=== PATIENT | male | born 1965 | race Caucasian/White ===

== ENCOUNTER 2017-11-21 09:47 | Inpatient (IN) | payer OTHER ==
[2017-11-21 10:49] VITALS: BMI 32.5
--- NOTE | 2017-11-21 12:42 | HP ---
CIWA Score - CIWA Score Nausea/Vomitin Muscle Tremors: 3 Anxiety: 3 Agitation: 2 Paroxysmal Sweats: 3 Orientation: 0-Oriented Tacttile Disturbances: 1-Very Mild Itch/Numbness Auditory Disturbances: 0-None Visual Disturbances: 0-None Headache: 1-Very Mild CIWA-Ar Total Score: 16 Admission ROS S - [facility] Chief Complaint: 52 y/o m pt with h/o chronic alcoholism seeking detox. Allergies/Adverse Reactions: Allergies Allergy/AdvReac Type Severity Reaction Status Date / Time fish derived Allergy Severe Rash Verified 11/21/17 10:47 shellfish derived Allergy Severe Rash Verified 11/21/17 10:47 chicken derived AdvReac Severe Vomiting Verified 11/21/17 10:47 lactose AdvReac Unknown LACTOSE Verified 11/21/17 10:47 INTOLERANCE seafood Allergy Severe Rash Uncoded 11/21/17 10:47 History of Present Illness: 29 yr h/o chronic alcoholism with multiple detox /rehabs in the past Exam Limitations: No Limitations - Ebola screening Have you traveled outside of the country in the last 21 days: No Have you had contact with anyone from an Ebola affected area: No Have you been sick,other than usual withdrawal symptoms: No Do you have a fever: No - Review of Systems Constitutional: Diaphoresis, Night Sweats EENT: reports: Blurred Vision, Dental Problems (bottom dentures in place , no top dentures), Other (increased blinking) Respiratory: reports: No Symptoms reported Cardiac: reports: No Symptoms Reported GI: reports: Nausea, Indigestion, Abdominal cramping : reports: Frequency Musculoskeletal: reports: Back Pain Integumentary: reports: Rash (groin) Neuro: reports: Dizziness, Other (light headed) Endocrine: reports: Increased Hunger, Increased Thirst, Increased Urine Hematology: reports: No Symptoms Reported Psychiatric: reports: Anxious Other Systems: Reviewed and Negative Patient History - Patient Medical History Hx Anemia: No Hx Asthma: No Hx Chronic Obstructive Pulmonary Disease (COPD): No Hx Cancer: No Hx Cardiac Disorders: No Hx Congestive Heart Failure: No Hx Hypertension: Yes (Pt is on meds.) Hx Hypercholesterolemia: Yes (NOT CURRENTLY ON MEDS--NONCOMPLIANT WITH LOVANZA) Hx Pacemaker: No HX Cerebrovascular Accident: No Hx Seizures: No Hx Dementia: No Hx Diabetes: Yes (metformin 850mg bid ) Hx Gastrointestinal Disorders: No Hx Liver Disease: No Hx Genitourinary Disorders: No Hx Sexually Transmitted Disorders: Yes (Pt has a hx of gonnorhea.) Hx Renal Disease (ESRD): No Hx Thyroid Disease: No Hx Human Immunodeficiency Virus (HIV): No (NEGATIVE HX) Hx Hepatitis C: No Hx Depression: No Hx Suicide Attempt: No Hx Bipolar Disorder: No Hx Schizophrenia: No - Patient Surgical History Past Surgical History: No Hx Neurologic Surgery: No Hx Cataract Extraction: No Hx Cardiac Surgery: No Hx Lung Surgery: No Hx Breast Surgery: No Hx Breast Biopsy: No Hx Abdominal Surgery: No Hx Appendectomy: No Hx Cholecystectomy: No Hx Genitourinary Surgery: No Hx Section: No Hx Orthopedic Surgery: No Hx Hysterectomy: No Anesthesia Reaction: No - PPD History Previous Implant?: Yes Documented Results: Negative w/proof Date: 10/18/17 Results: 0 mm - Reproductive History Patient is a Female of Child Bearing Age (11 -55 yrs old): No - Smoking Cessation Smoking history: Former smoker Have you smoked in the past 12 months: Yes Aproximately how many cigarettes per day: 0 If you are a former smoker, when did you quit?: smokes cannabis occasionally Cigars Per Day: 0 Hx Chewing Tobacco Use: No Initiated information on smoking cessation: Yes 'Breaking Loose' booklet given: 11/21/17 - Substance & Tx. History Hx Alcohol Use: Yes Hx Substance Use: Yes Substance Use Type: Alcohol, Marijuana Hx Substance Use Treatment: Yes - Substances Abused Alcohol Route: Oral Frequency: Daily Amount used: 12 can of beer `16 oz Age of first use: 19 Date of Last Use: 11/21/17 Marijuana/Hashish Route: Smoking Frequency: 1-3 times last 30 days Amount used: 3 bags Age of first use: 19 Date of Last Use: 11/21/17 Family Disease History - Family Disease History Family Disease History: Diabetes: Father, Mother Admission Physical Exam BHS - Vital Signs Vital Signs: Vital Signs - 24 hr 11/21/17 10:23 Pulse Rate 97 H Respiratory 20 Rate Blood Pressure 133/85 52 y/o m pt aox3 in nad ambulating , cooperative with exam. , - Physical General Appearance: Yes: Appropriately Dressed, Obese, Sweating, Anxious HEENTM: Yes: Normocephalic, Normal Voice, JACKLYN, Other (lower dentures in place , upper edentulous) Respiratory: Yes: Chest Non-Tender, Lungs Clear, Normal Breath Sounds, No Respiratory Distress Neck: Yes: No masses,lesions,Nodules, Supple, Trachea in good position Breast: Yes: Within Normal Limits Cardiology: Yes: Regular Rhythm, Regular Rate, S1, S2 Genitourinary: Yes: Frequency, Yeast Infection (jock itch - tinea c.) Back: Yes: Decreased Range of Motion Musculoskeletal: Yes: Back pain, Muscle Pain Extremities: Yes: Within Normal Limits, Normal Range of Motion 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: 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: 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 NML intact, Fully Oriented, Alert, Motor Strength 5/5, Normal Mood/Affect Integumentary: Yes: Moist Lymphatic: Yes: Within Normal Limits - Diagnostic (1) Anxiety disorder Current Visit: No Status: Chronic (2) Alcohol dependence with uncomplicated withdrawal Current Visit: No Status: Chronic (3) Cannabis abuse Current Visit: No Status: Chronic (4) Nicotine dependence Current Visit: No Status: Resolved Qualifiers: Nicotine product type: cigarettes Substance use status: in remission Qualified Code(s): F17.211 - Nicotine dependence, cigarettes, in remission (5) Obesity Current Visit: No Status: Chronic (6) DM Diabetes mellitus type 2 Current Visit: No Status: Chronic (7) Essential hypertension Current Visit: No Status: Chronic (8) Hypercholesterolemia Current Visit: No Status: Suspected Comment: NO MEDS (9) Tinea cruris Current Visit: Yes Status: Acute Cleared for Admission [facility] - Detox or Rehab [facility] Level of Care: Medically Managed Detox Regimen/Protocol: Librium [facility] Breath Alcohol Content Breath Alcohol Content: 0 Urine Drug Screen - Results Drug Screen Negative: No Urine Drug Screen Results: BZO-Benzodiazepines
[2017-11-21] MEDS ORDERED: MAGNESIUM HYDROX 2400MG/30ML ORAL SUSPENSION 30 ML CUP PO PRN (12:57)
[2017-11-21] MEDS ORDERED: chlordiazePOXIDE HCL 25 MG CAPSULE PO PRN (12:57)
[2017-11-21] MEDS ORDERED: hydrOXYzine PAMOATE 25 MG CAPSULE (FP) PO PRN (12:57)
[2017-11-21] MEDS ORDERED: MENTHOL/PHENOL 1 EACH UD MM PRN (12:57)
[2017-11-21] MEDS ORDERED: MAG HYDROX/AL HYDROX/SIMETH 30 ML UNIT-DOSE CUP PO PRN (12:57)
[2017-11-21] MEDS ORDERED: IBUPROFEN 400 MG TABLET (FP) PO PRN (12:57)
[2017-11-21] MEDS ORDERED: guaiFENesin/D-METHORPHAN HB 10 ML UNIT-DOSE CUPS PO PRN (12:57)
[2017-11-21] MEDS ORDERED: LOPERAMIDE HCL 2 MG CAPSULE PO PRN (12:57)
[2017-11-21] MEDS ORDERED: MAGNESIUM CITRATE 300 ML BOTTLE PO PRN (12:57)
[2017-11-21] MEDS ORDERED: P-EPHED 60MG/TRIPROLIDI 2.5MG TABLET PO PRN (12:57)
[2017-11-21] MEDS ORDERED: ACETAMINOPHEN 325 MG TABLET (FP) PO PRN (12:57)
[2017-11-21] MEDS: CYCLOBENZAPRINE HCL 5 MG TABLET PO SCH ×2 (14:59→22:18)
[2017-11-21] MEDS ORDERED: INSULIN (NOVOLOG) ASPART 100 UNITS/ML 10ML VIAL ONE (17:41)
[2017-11-21] MEDS: chlordiazePOXIDE HCL 25 MG CAPSULE PO SCH ×2 (18:09→22:18)
[2017-11-21] MEDS: INSULIN SLIDING SCALE (NOVOLOG) 1 VIAL SQ SCH (18:09)
[2017-11-21] MEDS ORDERED: THIAMINE HCL 100 MG TABLET (FP) PO SCH (22:00)
[2017-11-21 23:28] LABS: URINE APPEARANCE TURBID; URINE BILIRUBIN NEGATIVE (NEGATIVE); URINE BLOOD NEGATIVE (NEGATIVE); URINE COLOR YELLOW; URINE GLUCOSE (UA) 3+ (NEGATIVE); URINE KETONE TRACE (NEGATIVE); URINE LEUK ESTERASE NEGATIVE (NEGATIVE); URINE NITRITE NEGATIVE (NEGATIVE); URINE PROTEIN NEGATIVE (NEGATIVE); URINE UROBILINOGEN NEGATIVE mg/dL (0.2-1.0)
[2017-11-22] MEDS: chlordiazePOXIDE HCL 25 MG CAPSULE PO SCH (05:47)
[2017-11-22] MEDS: CYCLOBENZAPRINE HCL 5 MG TABLET PO SCH (05:47)
[2017-11-22] MEDS: INSULIN SLIDING SCALE (NOVOLOG) 1 VIAL SQ SCH (08:00)
[2017-11-22] MEDS ORDERED: INSULIN (NOVOLOG) ASPART 100 UNITS/ML 10ML VIAL ONE (08:02)
--- NOTE | 2017-11-22 08:55 | CONSULT ---
[facility] Psychiatric Consult - Data Date of interview: 11/22/17 Admission source: [facility] Identifying data: This is 52 years old male with no psychiatric hospitalization history intoxicated with: Alcohol, Cannabis and Nicotine Substance Abuse History: - Smoking Cessation. Smoking history: Former smoker. Have you smoked in the past 12 months: Yes. Aproximately how many cigarettes per day: 0. If you are a former smoker, when did you quit?: smokes cannabis occasionally. Cigars Per Day: 0. Hx Chewing Tobacco Use: No. Initiated information on smoking cessation: Yes. 'Breaking Loose' booklet given: . - Substance & Tx. History. Hx Alcohol Use: Yes. Hx Substance Use: Yes. Substance Use Type: Alcohol, Marijuana. Hx Substance Use Treatment: Yes. - Substances Abused. Alcohol. Route: Oral. Frequency: Daily. Amount used: 12 can of beer `16 oz. Age of first use: 19. Date of Last Use: 11/21/17. Marijuana/Hashish. Route: Smoking. Frequency: 1-3 times last 30 days. Amount used: 3 bags. Age of first use: 19. Date of Last Use: 11/21/17 Medical History: Obesity, DM-2, HRN, Hypercholesterolemia, Psychiatric History: Patient reports history of anxiety, reports taking p[rior to admission: Vistaril 50mg po bid Physical/Sexual Abuse/Trauma History: Denies Additional Comment: Vistaril 50mg po bid Mental Status Exam - Mental Status Exam Alert and Oriented to: Person Cognitive Function: Fair Patient Appearance: Unkempt Mood: Sad Affect: Mood Congruent Patient Behavior: Appropriate Speech Pattern: Appropriate Voice Loudness: Normal Thought Process: Circumstantial Thought Disorder: Being Controlled Hallucinations: Denies Suicidal Ideation: Denies Homicidal Ideation: Denies Insight/Judgement: Fair Sleep: Difficulty falling asleep Appetite: Fair Muscle strength/Tone: Normal Gait/Station: Normal Additional Comments: Vistaril 50mg po bid Psychiatric Findings - Problem List ([place] 1, 2,3) (1) Alcohol dependence with uncomplicated withdrawal Current Visit: Yes Status: Chronic (2) Anxiety disorder Current Visit: Yes Status: Chronic (3) Cannabis abuse Current Visit: Yes Status: Chronic (4) Alcohol-induced anxiety disorder Current Visit: No Status: Acute (5) Substance induced mood disorder Current Visit: No Status: Acute (6) Obesity Current Visit: No Status: Chronic Qualifiers: Obesity type: unspecified obesity type (7) Nicotine dependence Current Visit: No Status: Resolved Qualifiers: Nicotine product type: cigarettes Substance use status: in remission Qualified Code(s): F17.211 - Nicotine dependence, cigarettes, in remission - Initial Treatment Plan Initial Treatment Plan: Vistaril 50mg po bid
[2017-11-22 09:24] VITALS: BP 142/91; PULSE 71; TEMP 97.3
[2017-11-22] MEDS ORDERED: ASPIRIN COATED 81 MG TABLET.EC PO SCH (10:00)
[2017-11-22] MEDS ORDERED: NIFEdipine E.R. 30 MG TABLET (FP) PO SCH (10:00)
[2017-11-22] MEDS ORDERED: PRENATAL VITAMINS W/ FOLIC ACID TABLET (FP) PO SCH (10:00)
[2017-11-22] MEDS ORDERED: hydrOXYzine HCL 25 MG TABLET (FP) PO SCH (10:00)
[2017-11-22 10:48] LABS: HEMOGLOBIN 14.7 GM/dL (11.7-16.9); MCH 29.9 pg (25.7-33.7); MCHC 33.5 g/dl (32.0-35.9); MEAN CELL VOLUME 89.2 fl (80-96); MEAN PLT VOLUME 10.4 fl (7.5-11.1); PLATELET COUNT 221 K/MM3 (134-434); RBC 4.93 M/mm3 (4.00-5.60); RDW 14.3 % (11.9-15.9); WHITE BLOOD COUNT 5.6 K/mm3 (4.0-10.0)
[2017-11-22 10:57] LABS: CHLORIDE 103 mmol/L (98-107); POTASSIUM 4.1 mmol/L (3.5-5.1); SODIUM 140 mmol/L (136-145)
[2017-11-22 11:12] LABS: ALBUMIN 4.2 g/dl (3.4-5.0); ALK PHOS 71 U/L (45-117); ANION GAP 11 (8-16); BILIRUBIN,TOTAL 0.5 mg/dL (0.2-1.0); BLOOD UREA NITROGEN 12 mg/dL (7-18); CALCIUM 9.1 mg/dL (8.5-10.1); CO2 26 mmol/L (21-32); CREATININE 0.8 mg/dL (0.7-1.3); GLUCOSE,RANDOM 251 mg/dL (74-106); SGOT/AST 24 U/L (15-37); SGPT/ALT 35 U/L (12-78); TOT PROT 7.8 g/dl (6.4-8.2)
--- NOTE | 2017-11-22 11:29 | PN ---
[facility] CIWA - CIWA Score Nausea/Vomitin-No Nausea/No Vomiting Muscle Tremors: 3 Anxiety: 3 Agitation: 3 Paroxysmal Sweats: 3 Orientation: 0-Oriented Tacttile Disturbances: 0-None Auditory Disturbances: 0-None Visual Disturbances: 0-None Headache: 1-Very Mild CIWA-Ar Total Score: 13 S Progress Note (SOAP) Subjective: agitation anxiety sweats shakes interrupted sleep Objective: 11/22/17 11:27 Vital Signs Temperature 97.3 F L 11/22/17 09:23 Pulse Rate 71 11/22/17 09:23 Respiratory Rate 20 11/22/17 09:23 Blood Pressure 142/91 11/22/17 09:23 O2 Sat by Pulse Oximetry (%) Laboratory Tests 11/21/17 11/21/17 11/21/17 11:20 15:34 16:37 WBC RBC Hgb Hct MCV MCH MCHC RDW Plt Count MPV Sodium Potassium Chloride Carbon Dioxide Anion Gap BUN Creatinine Creat Clearance w eGFR POC Glucometer 295 200 187 Random Glucose Calcium Total Bilirubin AST ALT Alkaline Phosphatase Total Protein Albumin Urine Color Urine Appearance Urine pH Ur Specific [place] Urine Protein Urine Glucose (UA) Urine Ketones Urine Blood Urine Nitrite Urine Bilirubin Urine Urobilinogen Ur Leukocyte Esterase 11/21/17 11/22/17 11/22/17 20:45 05:45 06:00 WBC 5.6 RBC 4.93 Hgb 14.7 Hct 44.0 MCV 89.2 MCH 29.9 MCHC 33.5 RDW 14.3 Plt Count 221 MPV 10.4 Sodium Potassium Chloride Carbon Dioxide Anion Gap BUN Creatinine Creat Clearance w eGFR POC Glucometer 240 Random Glucose Calcium Total Bilirubin AST ALT Alkaline Phosphatase Total Protein Albumin Urine Color Yellow Urine Appearance Turbid Urine pH 5.0 Ur Specific [place] 1.028 Urine Protein Negative Urine Glucose (UA) 3+ H Urine Ketones Trace H Urine Blood Negative Urine Nitrite Negative Urine Bilirubin Negative Urine Urobilinogen Negative Ur Leukocyte Esterase Negative 11/22/17 06:00 WBC RBC Hgb Hct MCV MCH MCHC RDW Plt Count MPV Sodium 140 Potassium 4.1 Chloride 103 Carbon Dioxide 26 Anion Gap 11 BUN 12 Creatinine 0.8 Creat Clearance w eGFR > 60 POC Glucometer Random Glucose 251 H Calcium 9.1 Total Bilirubin 0.5 D AST 24 D ALT 35 Alkaline Phosphatase 71 Total Protein 7.8 Albumin 4.2 Urine Color Urine Appearance Urine pH Ur Specific [place] Urine Protein Urine Glucose (UA) Urine Ketones Urine Blood Urine Nitrite Urine Bilirubin Urine Urobilinogen Ur Leukocyte Esterase aaox3 ambulating no acute distress Assessment: 11/22/17 11:27 withdrawal sx Plan: continue detox increase fluids
--- NOTE | 2017-11-22 12:09 | PN ---
[facility] Progress Note Note: pt came to the nursing station stating that he had a court date this afternoon and need to leave. pt also states he is unhappy with his meals offered. asked pt if we can assist with dietary consultation however, pt continued to insist that he wanted to leave and signed out AMA.
--- NOTE | 2017-11-22 12:10 | DS ---
[facility] Detox Discharge Summary Admission Date: 11/21/17 Discharge Date: 11/22/17 - History Present History: Alcohol Dependence - Physical Exam Results Vital Signs: Vital Signs Temperature 97.3 F L 11/22/17 09:23 Pulse Rate 71 11/22/17 09:23 Respiratory Rate 20 11/22/17 09:23 Blood Pressure 142/91 11/22/17 09:23 O2 Sat by Pulse Oximetry (%) - Treatment Hospital Course: Detox Protocol Followed, Detoxed Safely, Responded well, Discharged Condition Good, Rehab Referral Accepted - Medication Discharge Medications: Ambulatory Orders Metformin HCl [Glucophage -] 850 mg PO BID 10/16/17 Nifedipine ER [Procardia Xl -] 30 mg PO DAILY 10/16/17 Baclofen 10 mg PO TID 11/21/17 Hydroxyzine HCl 50 mg PO PRN 11/21/17 Ibuprofen [Motrin -] 600 mg PO QID PRN 11/21/17 Hydroxyzine Pamoate [Vistaril -] 50 mg PO BID #60 capsule 11/22/17 - Diagnosis (1) Tinea cruris Current Visit: Yes Status: Acute (2) Alcohol dependence with uncomplicated withdrawal Current Visit: Yes Status: Chronic (3) Anxiety disorder Current Visit: Yes Status: Chronic (4) Cannabis abuse Current Visit: Yes Status: Chronic (5) DM Diabetes mellitus type 2 Current Visit: Yes Status: Chronic (6) Essential hypertension Current Visit: Yes Status: Chronic (7) Hypercholesterolemia Current Visit: Yes Status: Suspected (8) Alcohol-induced anxiety disorder Current Visit: No Status: Acute (9) Blackout Current Visit: No Status: Acute (10) Substance induced mood disorder Current Visit: No Status: Acute (11) Depression with anxiety Current Visit: No Status: Chronic (12) Obesity Current Visit: No Status: Chronic Qualifiers: Obesity type: unspecified obesity type (13) Nicotine dependence Current Visit: No Status: Resolved Qualifiers: Nicotine product type: cigarettes Substance use status: in remission Qualified Code(s): F17.211 - Nicotine dependence, cigarettes, in remission - AMA Did Patient Leave Against Medical Advice: Yes
--- NOTE | 2017-11-22 12:38 | EKG ---
Test Reason : Blood Pressure : / mmHG Vent. Rate : 078 BPM Atrial Rate : 078 BPM P-R Int : 142 ms QRS Dur : 084 ms QT Int : 360 ms P-R-T Axes : 060 -09 -07 degrees QTc Int : 410 ms NORMAL SINUS RHYTHM NORMAL ECG WHEN COMPARED WITH ECG OF 16-OCT-2017 14:44, NO SIGNIFICANT CHANGE WAS FOUND Confirmed by ERIC LAND MD ([id number]) on 11/22/2017 12:37:51 PM Referred By: Confirmed By:ERIC LAND MD
[2017-11-22] MEDS ORDERED: chlordiazePOXIDE HCL 25 MG CAPSULE PO SCH (17:00)
[2017-11-23] MEDS ORDERED: chlordiazePOXIDE 5 MG CAPSULE PO SCH (17:00)
[2017-11-24] MEDS ORDERED: chlordiazePOXIDE HCL 10 MG CAPSULE PO SCH (17:00)
== END 2017-11-22 11:48 | disposition home or self-care (01) | DRG 897 ==
LOC: YASAS 09:47 → Y6N 13:14
PROVIDERS: ADMIT Internal Medicine; ATTEND Internal Medicine
PROC: HZ2ZZZZ Detoxification Services for Substance Abuse Treatment (ICD-10-PCS; principal; 2017-11-21)
DX: F10.230 Alcohol dependence with withdrawal, uncomplicated (principal); F10.280 Alcohol dependence with alcohol-induced anxiety disorder; F12.10 Cannabis abuse, uncomplicated; F41.8 Other specified anxiety disorders; F41.9 Anxiety disorder, unspecified; F19.24 Other psychoactive substance dependence with psychoactive substance-induced mood disorder; I10 Essential (primary) hypertension; E11.9 Type 2 diabetes mellitus without complications; E78.00 Pure hypercholesterolemia, unspecified; B35.6 Tinea cruris; E66.9 Obesity, unspecified; Z68.32 Body mass index [BMI] 32.0-32.9, adult; Z91.14 Patient's other noncompliance with medication regimen; Z79.84 Long term (current) use of oral hypoglycemic drugs; Z86.69 Personal history of other diseases of the nervous system and sense organs; Z91.013 Allergy to seafood; Z87.438 Personal history of other diseases of male genital organs; Z87.891 Personal history of nicotine dependence
CPT/HCPCS: 36415; 80053; 81003; 82962; 85027; 86593; 93005; 93010

== ENCOUNTER 2017-12-21 11:09 | Inpatient (IN) | payer MEDICARE, OTHER ==
[2017-12-21 12:51] VITALS: BMI 33.2
--- NOTE | 2017-12-21 14:19 | HP ---
CIWA Score - CIWA Score Nausea/Vomitin-Mild Nausea/No Vomiting Muscle Tremors: 4-Moderate,w/Arms Extend Anxiety: 4-Mod. Anxious/Guarded Agitation: 4-Moderately Restless Paroxysmal Sweats: 3 Orientation: 0-Oriented Tacttile Disturbances: 0-None Auditory Disturbances: 0-None Visual Disturbances: 0-None Headache: 0-None Present CIWA-Ar Total Score: 16 Admission ROS BHS - HPI Chief Complaint: I am here for detox and will do my best to complete my detox. Allergies/Adverse Reactions: Allergies Allergy/AdvReac Type Severity Reaction Status Date / Time lactose AdvReac Severe Vomiting Verified 12/21/17 13:44 seafood Allergy Severe Rash Uncoded 12/21/17 13:44 WHITE MEAT AdvReac Severe Vomiting Uncoded 12/21/17 13:44 History of Present Illness: pt is a 52yr old male with a history of alcohol dependence seeking detox for treatment. Exam Limitations: No Limitations - Ebola screening Have you traveled outside of the country in the last 21 days: No Have you had contact with anyone from an Ebola affected area: No Have you been sick,other than usual withdrawal symptoms: No Do you have a fever: No - Review of Systems Constitutional: Chills, Night Sweats, Changes in sleep EENT: reports: Tearing, Nose Congestion Respiratory: reports: Cough Cardiac: reports: No Symptoms Reported GI: reports: Nausea, Poor Fluid Intake, Vomiting : reports: No Symptoms Reported Musculoskeletal: reports: Back Pain Integumentary: reports: Flushing, Rash (around inner groin area d/t sweat), Sweating Neuro: reports: Tingling, Tremors Endocrine: reports: Excessive Sweating, Flushing, Intolerance to Cold, Intolerance to Heat Hematology: reports: No Symptoms Reported Psychiatric: reports: Judgement Intact, Mood/Affect Appropiate, Orientated x3, Agitated, Anxious Other Systems: Reviewed and Negative Patient History - Patient Medical History Hx Anemia: No Hx Asthma: No Hx Chronic Obstructive Pulmonary Disease (COPD): No Hx Cancer: No Hx Cardiac Disorders: No Hx Congestive Heart Failure: No Hx Hypertension: Yes Hx Hypercholesterolemia: Yes (NOT CURRENTLY ON MEDS--NONCOMPLIANT WITH LOVANZA) Hx Pacemaker: No HX Cerebrovascular Accident: No Hx Seizures: No Hx Dementia: No Hx Diabetes: Yes (NIDDM) Hx Gastrointestinal Disorders: No Hx Liver Disease: No Hx Genitourinary Disorders: No Hx Sexually Transmitted Disorders: Yes (syphilis at age 22) Hx Renal Disease (ESRD): No Hx Thyroid Disease: No Hx Human Immunodeficiency Virus (HIV): No (NEGATIVE HX) Hx Hepatitis C: No Hx Depression: No Hx Suicide Attempt: No (denies) Hx Bipolar Disorder: No Hx Schizophrenia: No - Patient Surgical History Past Surgical History: No Hx Neurologic Surgery: No Hx Cataract Extraction: No Hx Cardiac Surgery: No Hx Lung Surgery: No Hx Breast Surgery: No Hx Breast Biopsy: No Hx Abdominal Surgery: No Hx Appendectomy: No Hx Cholecystectomy: No Hx Genitourinary Surgery: No Hx Section: No Hx Orthopedic Surgery: No Hx Hysterectomy: No Anesthesia Reaction: No - PPD History Previous Implant?: Yes Documented Results: Negative w/proof Implanted On Prior [facility] Admission?: Yes Date: 10/18/17 Results: 0 mm PPD to be Administered?: No - Reproductive History Patient is a Female of Child Bearing Age (11 -55 yrs old): No - Smoking Cessation Smoking history: Former smoker Have you smoked in the past 12 months: Yes Aproximately how many cigarettes per day: 3 If you are a former smoker, when did you quit?: 6 mos. ago Cigars Per Day: 0 Hx Chewing Tobacco Use: No Initiated information on smoking cessation: Yes 'Breaking Loose' booklet given: 12/21/17 - Substance & Tx. History Hx Alcohol Use: Yes Hx Substance Use: No Substance Use Type: Alcohol Hx Substance Use Treatment: Yes (last detox [facility] 2015) - Substances Abused Alcohol-beer Route: Oral Frequency: Daily Amount used: 2-6 pks. Age of first use: 19 Date of Last Use: 12/21/17 Marijuana Route: Smoking Frequency: 1-3 times last 30 days Amount used: $50 Age of first use: 19 Date of Last Use: 12/21/17 Family Disease History - Family Disease History Family Disease History: Diabetes: Father, Mother Admission Physical Exam BHS - Vital Signs Vital Signs: Vital Signs - 24 hr 12/21/17 12:49 Temperature 98 F Pulse Rate 102 H Respiratory 20 Rate Blood Pressure 136/86 - Physical General Appearance: Yes: Appropriately Dressed, Moderate Distress, Tremorous, Irritable, Sweating, Anxious HEENTM: Yes: Normal Voice, Nasal Congestion, Rhinorrhea Respiratory: Yes: Lungs Clear, Normal Breath Sounds, No Respiratory Distress Neck: Yes: Within Normal Limits Breast: Yes: Within Normal Limits Cardiology: Yes: Regular Rhythm, Regular Rate, S1, S2 Abdominal: Yes: Normal Bowel Sounds, Non Tender, Soft Genitourinary: Yes: Within Normal Limits Back: Yes: Normal Inspection Musculoskeletal: Yes: full range of Motion Extremities: Yes: Normal Capillary Refill, Normal Inspection, Non-Tender, Tremors 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: Yes: Fully Oriented, Alert, Normal Response Integumentary: Yes: Normal Color, Diaphoresis Lymphatic: Yes: Within Normal Limits - Diagnostic (1) Substance induced mood disorder Current Visit: Yes Status: Acute (2) Alcohol dependence with uncomplicated withdrawal Current Visit: Yes Status: Chronic (3) Cannabis abuse Current Visit: Yes Status: Chronic (4) DM Diabetes mellitus type 2 Current Visit: Yes Status: Chronic (5) Essential hypertension Current Visit: Yes Status: Chronic (6) Obesity Current Visit: Yes Status: Chronic Qualifiers: Obesity classification: adult class 1 (BMI 30 - 34.9) (7) Hypercholesterolemia Current Visit: Yes Status: Chronic Comment: NO MEDS (8) Nicotine dependence Current Visit: No Status: Resolved Qualifiers: Nicotine product type: cigarettes Substance use status: uncomplicated Qualified Code(s): F17.210 - Nicotine dependence, cigarettes, uncomplicated Cleared for Admission S - Detox or Rehab [facility] Level of Care: Medically Managed Detox Regimen/Protocol: Librium [facility] Breath Alcohol Content Breath Alcohol Content: 0 Urine Drug Screen - Results Drug Screen Negative: No Urine Drug Screen Results: THC-Marijuana
[2017-12-21] MEDS ORDERED: IBUPROFEN 400 MG TABLET (FP) PO PRN (14:27)
[2017-12-21] MEDS ORDERED: P-EPHED 60MG/TRIPROLIDI 2.5MG TABLET PO PRN (14:27)
[2017-12-21] MEDS ORDERED: MENTHOL/PHENOL 1 EACH UD MM PRN (14:27)
[2017-12-21] MEDS ORDERED: MAGNESIUM HYDROX 2400MG/30ML ORAL SUSPENSION 30 ML CUP PO PRN (14:27)
[2017-12-21] MEDS ORDERED: hydrOXYzine PAMOATE 50 MG CAPSULE (FP) PO PRN (14:27)
[2017-12-21] MEDS ORDERED: chlordiazePOXIDE HCL 25 MG CAPSULE PO PRN (14:27)
[2017-12-21] MEDS ORDERED: LOPERAMIDE HCL 2 MG CAPSULE PO PRN (14:27)
[2017-12-21] MEDS ORDERED: MAGNESIUM CITRATE 300 ML BOTTLE PO PRN (14:27)
[2017-12-21] MEDS ORDERED: ACETAMINOPHEN 325 MG TABLET (FP) PO PRN (14:27)
[2017-12-21] MEDS ORDERED: guaiFENesin/D-METHORPHAN HB 10 ML UNIT-DOSE CUPS PO PRN (14:27)
[2017-12-21] MEDS ORDERED: MAG HYDROX/AL HYDROX/SIMETH 30 ML UNIT-DOSE CUP PO PRN (14:27)
[2017-12-21] MEDS ORDERED: chlordiazePOXIDE HCL 25 MG CAPSULE PO ONE (14:55)
[2017-12-21 16:51] LABS: URINE APPEARANCE CLEAR; URINE BILIRUBIN NEGATIVE (NEGATIVE); URINE BLOOD NEGATIVE (NEGATIVE); URINE COLOR COLORLESS; URINE GLUCOSE (UA) 3+ (NEGATIVE); URINE KETONE TRACE (NEGATIVE); URINE LEUK ESTERASE NEGATIVE (NEGATIVE); URINE NITRITE NEGATIVE (NEGATIVE); URINE PROTEIN NEGATIVE (NEGATIVE); URINE UROBILINOGEN NEGATIVE mg/dL (0.2-1.0)
[2017-12-21] MEDS ORDERED: INSULIN (NOVOLOG) ASPART 100 UNITS/ML 10ML VIAL ONE (16:55)
[2017-12-21] MEDS: chlordiazePOXIDE HCL 25 MG CAPSULE PO SCH ×2 (17:07→22:12)
[2017-12-21] MEDS: INSULIN (NOVOLOG) ASPART 100 UNITS/ML 10ML VIAL SQ SCH (17:07)
--- NOTE | 2017-12-21 17:11 | CONSULT ---
[facility] Psychiatric Consult - Data Date of interview: 12/21/17 Admission source: [facility] Identifying data: This is another admission to [facility] for this 52 y/o male seeking detox treatment on for alcohol and marihuana dependence.Patient is without children,domiciled ([place] setting), unemployed and supported on SSI/SSD benefits. Substance Abuse History: Reconfirmed by patient in this interview.Smoking history: Former smoker. Have you smoked in the past 12 months: Yes. Aproximately how many cigarettes per day: 3. If you are a former smoker, when did you quit?: 6 mos. ago. Cigars Per Day: 0. Hx Chewing Tobacco Use: No. Initiated information on smoking cessation: Yes. 'Breaking Loose' booklet given : 12/21/17. - Substance & Tx. History. Hx Alcohol Use: Yes. Hx Substance Use : No. Substance Use Type: Alcohol. Hx Substance Use Treatment: Yes (last detox [facility] 2016). - Substances Abused. Alcohol-beer. Route: Oral. Frequency: Daily. Amount used: 2-6 pks. Age of first use: 19. Date of Last Use: 12/21/17. Marijuana. Route: Smoking. Frequency: 1-3 times last 30 days. Amount used: $50. Age of first use: 19. Date of Last Use: 12/21/17 Medical History: Obesity,hypertension,dyslipidemia,diabetes mellitus and past history of treatment for gonorrhea. Psychiatric History: Patient denies history of psychiatric hospitalizations.No longer in OPD care at the [facility] mental health clinic.Scheduled for an intake interview at the [facility] O[facility] clinic on 01/22/18.Mr Key reports treatment with prn vistaril for moderate anxiety (primary care providers ).Patient denies history of suicide attempts. Physical/Sexual Abuse/Trauma History: Patient denies. Additional Comment: Urine Drug Screen Results: THC-Marijuana.Noted. Mental Status Exam - Mental Status Exam Alert and Oriented to: Time, Place, Person Cognitive Function: Good Patient Appearance: Well Groomed Mood: Hopeful, Euthymic Affect: Appropriate, Normal Range Patient Behavior: Fatigued, Appropriate, Cooperative Speech Pattern: Clear, Appropriate Voice Loudness: Normal Thought Process: Intact, Goal Oriented Thought Disorder: Not Present Hallucinations: Denies Suicidal Ideation: Denies Homicidal Ideation: Denies Insight/Judgement: Poor Sleep: Well Appetite: Good Muscle strength/Tone: Normal Gait/Station: Normal Psychiatric Findings - Problem List ([place] 1, 2,3) (1) Alcohol dependence with uncomplicated withdrawal Current Visit: Yes Status: Acute (2) Cannabis abuse Current Visit: Yes Status: Acute (3) Nicotine dependence Current Visit: Yes Status: Acute Qualifiers: Nicotine product type: cigarettes Substance use status: uncomplicated Qualified Code(s): F17.210 - Nicotine dependence, cigarettes, uncomplicated (4) Substance induced mood disorder Current Visit: Yes Status: Acute - Initial Treatment Plan Initial Treatment Plan: Psychoeducation.Detoxification in progress.Observation.
[2017-12-21] MEDS: metFORMIN HCL 500 MG TABLET (FP) PO SCH (18:26)
[2017-12-21] MEDS: THIAMINE HCL 100 MG TABLET (FP) PO SCH (22:12)
[2017-12-22] MEDS: chlordiazePOXIDE HCL 25 MG CAPSULE PO SCH ×4 (05:31→22:32)
[2017-12-22] MEDS ORDERED: INSULIN (NOVOLOG) ASPART 100 UNITS/ML 10ML VIAL ONE ×3 (06:13→16:57)
[2017-12-22] MEDS: metFORMIN HCL 500 MG TABLET (FP) PO SCH (07:31)
[2017-12-22] MEDS: INSULIN (NOVOLOG) ASPART 100 UNITS/ML 10ML VIAL SQ SCH ×3 (07:34→17:07)
[2017-12-22] MEDS: NIFEdipine E.R. 30 MG TABLET (FP) PO SCH (10:43)
[2017-12-22] MEDS: PRENATAL VITAMINS W/ FOLIC ACID TABLET (FP) PO SCH (10:43)
--- NOTE | 2017-12-22 12:20 | EKG ---
Test Reason : Blood Pressure : / mmHG Vent. Rate : 079 BPM Atrial Rate : 079 BPM P-R Int : 142 ms QRS Dur : 086 ms QT Int : 360 ms P-R-T Axes : 070 -08 -12 degrees QTc Int : 412 ms NORMAL SINUS RHYTHM NORMAL ECG WHEN COMPARED WITH ECG OF 21-NOV-2017 15:14, NO SIGNIFICANT CHANGE WAS FOUND Confirmed by ERIC LAND MD ([id number]) on 12/22/2017 12:20:28 PM Referred By: Confirmed By:ERIC LAND MD
[2017-12-22 12:28] LABS: HEMATOCRIT 42.5 % (35.4-49); HEMOGLOBIN 14.1 GM/dL (11.7-16.9); MCH 29.5 pg (25.7-33.7); MCHC 33.2 g/dl (32.0-35.9); MEAN CELL VOLUME 88.8 fl (80-96); MEAN PLT VOLUME 9.7 fl (7.5-11.1); PLATELET COUNT 215 K/MM3 (134-434); RBC 4.79 M/mm3 (4.00-5.60); RDW 13.5 % (11.9-15.9); WHITE BLOOD COUNT 6.8 K/mm3 (4.0-10.0)
[2017-12-22 12:49] LABS: ANION GAP 7 (8-16); BLOOD UREA NITROGEN 12 mg/dL (7-18); CALCIUM 8.5 mg/dL (8.5-10.1); CHLORIDE 102 mmol/L (98-107); CO2 28 mmol/L (21-32); POTASSIUM 4.3 mmol/L (3.5-5.1); SODIUM 137 mmol/L (136-145)
[2017-12-22 12:52] LABS: ALK PHOS 88 U/L (45-117); BILIRUBIN,TOTAL 0.5 mg/dL (0.2-1.0); CREATININE 1.1 mg/dL (0.7-1.3); SGOT/AST 9 U/L (15-37); SGPT/ALT 21 U/L (12-78); TOT PROT 7.3 g/dl (6.4-8.2)
[2017-12-22 13:07] LABS: GLUCOSE,RANDOM 389 mg/dL (74-106)
[2017-12-22] MEDS: CLOTRIMAZOLE 1% CREAM 15 GM TUBE TP SCH ×2 (15:32→22:33)
--- NOTE | 2017-12-22 17:18 | PN ---
[facility] CIWA - CIWA Score Nausea/Vomitin-No Nausea/No Vomiting Muscle Tremors: 3 Anxiety: 4-Mod. Anxious/Guarded Agitation: 3 Paroxysmal Sweats: 3 Orientation: 0-Oriented Tacttile Disturbances: 3-Moderate Itch/Numb/Burn Auditory Disturbances: 0-None Visual Disturbances: 0-None Headache: 0-None Present CIWA-Ar Total Score: 16 BHS Progress Note (SOAP) Subjective: Sweating, Tremors, Anxious, Interrupted Sleep. Objective: PT. A & O X 3, OBSERVED AMBULATING ON UNIT. NO ACUTE DISTRESS. 12/22/17 17:19 Vital Signs Temperature 97.8 F 12/22/17 14:16 Pulse Rate 86 12/22/17 14:16 Respiratory Rate 18 12/22/17 14:16 Blood Pressure 121/85 12/22/17 14:16 O2 Sat by Pulse Oximetry (%) Laboratory Tests 12/21/17 12/21/17 12/21/17 14:01 15:00 16:31 WBC RBC Hgb Hct MCV MCH MCHC RDW Plt Count MPV Sodium Potassium Chloride Carbon Dioxide Anion Gap BUN Creatinine Creat Clearance w eGFR POC Glucometer 382 344 Random Glucose Calcium Total Bilirubin AST ALT Alkaline Phosphatase Total Protein Albumin Urine Color Colorless Urine Appearance Clear Urine pH 6.0 Ur Specific [place] 1.024 Urine Protein Negative Urine Glucose (UA) 3+ H Urine Ketones Trace H Urine Blood Negative Urine Nitrite Negative Urine Bilirubin Negative Urine Urobilinogen Negative Ur Leukocyte Esterase Negative RPR Titer 12/22/17 12/22/17 12/22/17 05:30 06:00 06:00 WBC 6.8 RBC 4.79 Hgb 14.1 Hct 42.5 MCV 88.8 MCH 29.5 MCHC 33.2 RDW 13.5 Plt Count 215 MPV 9.7 Sodium 137 Potassium 4.3 Chloride 102 Carbon Dioxide 28 Anion Gap 7 L BUN 12 Creatinine 1.1 D Creat Clearance w eGFR > 60 POC Glucometer 300 Random Glucose 389 H* D Calcium 8.5 Total Bilirubin 0.5 AST 9 L D ALT 21 D Alkaline Phosphatase 88 D Total Protein 7.3 Albumin 4.0 Urine Color Urine Appearance Urine pH Ur Specific [place] Urine Protein Urine Glucose (UA) Urine Ketones Urine Blood Urine Nitrite Urine Bilirubin Urine Urobilinogen Ur Leukocyte Esterase RPR Titer 12/22/17 12/22/17 12/22/17 06:00 14:01 16:06 WBC RBC Hgb Hct MCV MCH MCHC RDW Plt Count MPV Sodium Potassium Chloride Carbon Dioxide Anion Gap BUN Creatinine Creat Clearance w eGFR POC Glucometer 285 308 Random Glucose Calcium Total Bilirubin AST ALT Alkaline Phosphatase Total Protein Albumin Urine Color Urine Appearance Urine pH Ur Specific [place] Urine Protein Urine Glucose (UA) Urine Ketones Urine Blood Urine Nitrite Urine Bilirubin Urine Urobilinogen Ur Leukocyte Esterase RPR Titer Nonreactive LABS NOTED. Assessment: 12/22/17 17:19 WITHDRAWAL SYMPTOMS. Plan: CONTINUE DETOX. INCREASE DAILY PO FLUID INTAKE.
[2017-12-22] MEDS: THIAMINE HCL 100 MG TABLET (FP) PO SCH (22:32)
[2017-12-23] MEDS: chlordiazePOXIDE HCL 25 MG CAPSULE PO SCH ×2 (05:55→10:21)
[2017-12-23] MEDS: INSULIN (NOVOLOG) ASPART 100 UNITS/ML 10ML VIAL SQ SCH ×3 (07:43→16:53)
[2017-12-23] MEDS ORDERED: INSULIN (NOVOLOG) ASPART 100 UNITS/ML 10ML VIAL ONE ×3 (07:45→16:46)
[2017-12-23] MEDS: PRENATAL VITAMINS W/ FOLIC ACID TABLET (FP) PO SCH (10:21)
[2017-12-23] MEDS: NIFEdipine E.R. 30 MG TABLET (FP) PO SCH (10:21)
[2017-12-23] MEDS: CLOTRIMAZOLE 1% CREAM 15 GM TUBE TP SCH ×2 (10:22→23:06)
--- NOTE | 2017-12-23 13:53 | PN ---
S CIWA - CIWA Score Nausea/Vomitin Muscle Tremors: 3 Anxiety: 3 Agitation: 2 Paroxysmal Sweats: 2 Orientation: 0-Oriented Tacttile Disturbances: 1-Very Mild Itch/Numbness Auditory Disturbances: 1-Very Mild Visual Disturbances: 0-None Headache: 2-Mild CIWA-Ar Total Score: 17 S Progress Note (SOAP) Subjective: ALERT,IRRITABLE,ANXIOUS,INTERRUPTED SLEEP,TREMOR,PAIN IN THE BODY Objective: 12/23/17 13:50 Vital Signs Temperature 97.0 F L 12/23/17 13:25 Pulse Rate 87 12/23/17 13:25 Respiratory Rate 18 12/23/17 13:25 Blood Pressure 139/87 12/23/17 13:25 O2 Sat by Pulse Oximetry (%) EKG NSR,NORMAL ECG Laboratory Last Values WBC 6.8 K/mm3 (4.0-10.0) 12/22/17 06:00 RBC 4.79 M/mm3 (4.00-5.60) 12/22/17 06:00 Hgb 14.1 GM/dL (11.7-16.9) 12/22/17 06:00 Hct 42.5 % (35.4-49) 12/22/17 06:00 MCV 88.8 fl (80-96) 12/22/17 06:00 MCH 29.5 pg (25.7-33.7) 12/22/17 06:00 MCHC 33.2 g/dl (32.0-35.9) 12/22/17 06:00 RDW 13.5 % (11.9-15.9) 12/22/17 06:00 Plt Count 215 K/MM3 (134-434) 12/22/17 06:00 MPV 9.7 fl (7.5-11.1) 12/22/17 06:00 Sodium 137 mmol/L (136-145) 12/22/17 06:00 Potassium 4.3 mmol/L (3.5-5.1) 12/22/17 06:00 Chloride 102 mmol/L (98-107) 12/22/17 06:00 Carbon Dioxide 28 mmol/L (21-32) 12/22/17 06:00 Anion Gap 7 (8-16) L 12/22/17 06:00 BUN 12 mg/dL (7-18) 12/22/17 06:00 Creatinine 1.1 mg/dL (0.7-1.3) D 12/22/17 06:00 Creat Clearance w eGFR > 60 (>60) 12/22/17 06:00 POC Glucometer 193 UNITS (80-120) 12/23/17 11:29 Random Glucose 389 mg/dL (74-106) H* D 12/22/17 06:00 Calcium 8.5 mg/dL (8.5-10.1) 12/22/17 06:00 Total Bilirubin 0.5 mg/dL (0.2-1.0) 12/22/17 06:00 AST 9 U/L (15-37) L D 12/22/17 06:00 ALT 21 U/L (12-78) D 12/22/17 06:00 Alkaline Phosphatase 88 U/L (45-117) D 12/22/17 06:00 Total Protein 7.3 g/dl (6.4-8.2) 12/22/17 06:00 Albumin 4.0 g/dl (3.4-5.0) 12/22/17 06:00 Urine Color Colorless 12/21/17 15:00 Urine Appearance Clear 12/21/17 15:00 Urine pH 6.0 (5.0-8.0) 12/21/17 15:00 Ur Specific [place] 1.024 (1.001-1.035) 12/21/17 15:00 Urine Protein Negative (NEGATIVE) 12/21/17 15:00 Urine Glucose (UA) 3+ (NEGATIVE) H 12/21/17 15:00 Urine Ketones Trace (NEGATIVE) H 12/21/17 15:00 Urine Blood Negative (NEGATIVE) 12/21/17 15:00 Urine Nitrite Negative (NEGATIVE) 12/21/17 15:00 Urine Bilirubin Negative (NEGATIVE) 12/21/17 15:00 Urine Urobilinogen Negative mg/dL (0.2-1.0) 12/21/17 15:00 Ur Leukocyte Esterase Negative (NEGATIVE) 12/21/17 15:00 RPR Titer Nonreactive (NONREACTIVE) 12/22/17 06:00 Assessment: 12/23/17 13:52 WITHDRAWAL SYMPTOM Plan: CONTINUE DETOX,BGM MONITORING WITH INSULIN COVERAGE
[2017-12-23] MEDS: chlordiazePOXIDE 5 MG CAPSULE PO SCH ×2 (16:53→23:07)
[2017-12-23] MEDS: THIAMINE HCL 100 MG TABLET (FP) PO SCH (23:07)
[2017-12-24] MEDS: chlordiazePOXIDE 5 MG CAPSULE PO SCH (05:31)
[2017-12-24 06:12] VITALS: BP 113/66; PULSE 84; TEMP 98.1
[2017-12-24] MEDS ORDERED: INSULIN (NOVOLOG) ASPART 100 UNITS/ML 10ML VIAL ONE (07:46)
[2017-12-24] MEDS: INSULIN (NOVOLOG) ASPART 100 UNITS/ML 10ML VIAL SQ SCH (07:49)
[2017-12-24] MEDS ORDERED: chlordiazePOXIDE HCL 10 MG CAPSULE PO SCH (17:00)
--- NOTE | 2017-12-24 17:42 | DS ---
[facility] Detox Discharge Summary Admission Date: 12/21/17 Discharge Date: 12/24/17 - History Present History: Alcohol Dependence, Cannabis Dependence Additional Comments: PATIENT DENIES CURRENT DETOX SYMPTOMS AND REPORTS THAT HE FEELS WELL OVERALL AT TIME OF DISCHARGE FROM DETOX. PATIENT GOING TO [facility] ([place], [place], [place] PATIENT WAS DISCHARGED FROM DETOX UNIT IN STABLE MEDICAL CONDITION. Pertinent Past History: HTN, Hypercholesterolemia, Obesity, Nicotine Dependence, NIDDM. - Physical Exam Results Vital Signs: Vital Signs Temperature 98.1 F 12/24/17 06:11 Pulse Rate 84 12/24/17 06:11 Respiratory Rate 18 12/24/17 06:11 Blood Pressure 113/66 12/24/17 06:11 O2 Sat by Pulse Oximetry (%) Pertinent Admission Physical Exam Findings: WITHDRAWAL SYMPTOMS. Vital Signs Temperature 98.1 F 12/24/17 06:11 Pulse Rate 84 12/24/17 06:11 Respiratory Rate 18 12/24/17 06:11 Blood Pressure 113/66 12/24/17 06:11 O2 Sat by Pulse Oximetry (%) Laboratory Tests 12/21/17 12/21/17 12/21/17 14:01 15:00 16:31 WBC RBC Hgb Hct MCV MCH MCHC RDW Plt Count MPV Sodium Potassium Chloride Carbon Dioxide Anion Gap BUN Creatinine Creat Clearance w eGFR POC Glucometer 382 344 Random Glucose Calcium Total Bilirubin AST ALT Alkaline Phosphatase Total Protein Albumin Urine Color Colorless Urine Appearance Clear Urine pH 6.0 Ur Specific [place] 1.024 Urine Protein Negative Urine Glucose (UA) 3+ H Urine Ketones Trace H Urine Blood Negative Urine Nitrite Negative Urine Bilirubin Negative Urine Urobilinogen Negative Ur Leukocyte Esterase Negative RPR Titer 12/22/17 12/22/17 12/22/17 05:30 06:00 06:00 WBC 6.8 RBC 4.79 Hgb 14.1 Hct 42.5 MCV 88.8 MCH 29.5 MCHC 33.2 RDW 13.5 Plt Count 215 MPV 9.7 Sodium 137 Potassium 4.3 Chloride 102 Carbon Dioxide 28 Anion Gap 7 L BUN 12 Creatinine 1.1 D Creat Clearance w eGFR > 60 POC Glucometer 300 Random Glucose 389 H* D Calcium 8.5 Total Bilirubin 0.5 AST 9 L D ALT 21 D Alkaline Phosphatase 88 D Total Protein 7.3 Albumin 4.0 Urine Color Urine Appearance Urine pH Ur Specific [place] Urine Protein Urine Glucose (UA) Urine Ketones Urine Blood Urine Nitrite Urine Bilirubin Urine Urobilinogen Ur Leukocyte Esterase RPR Titer 12/22/17 12/22/17 12/22/17 06:00 11:02 14:01 WBC RBC Hgb Hct MCV MCH MCHC RDW Plt Count MPV Sodium Potassium Chloride Carbon Dioxide Anion Gap BUN Creatinine Creat Clearance w eGFR POC Glucometer 411 285 Random Glucose Calcium Total Bilirubin AST ALT Alkaline Phosphatase Total Protein Albumin Urine Color Urine Appearance Urine pH Ur Specific [place] Urine Protein Urine Glucose (UA) Urine Ketones Urine Blood Urine Nitrite Urine Bilirubin Urine Urobilinogen Ur Leukocyte Esterase RPR Titer Nonreactive 12/22/17 12/23/17 12/23/17 16:06 05:57 11:29 WBC RBC Hgb Hct MCV MCH MCHC RDW Plt Count MPV Sodium Potassium Chloride Carbon Dioxide Anion Gap BUN Creatinine Creat Clearance w eGFR POC Glucometer 308 270 193 Random Glucose Calcium Total Bilirubin AST ALT Alkaline Phosphatase Total Protein Albumin Urine Color Urine Appearance Urine pH Ur Specific [place] Urine Protein Urine Glucose (UA) Urine Ketones Urine Blood Urine Nitrite Urine Bilirubin Urine Urobilinogen Ur Leukocyte Esterase RPR Titer 12/23/17 12/24/17 16:17 05:30 WBC RBC Hgb Hct MCV MCH MCHC RDW Plt Count MPV Sodium Potassium Chloride Carbon Dioxide Anion Gap BUN Creatinine Creat Clearance w eGFR POC Glucometer 337 268 Random Glucose Calcium Total Bilirubin AST ALT Alkaline Phosphatase Total Protein Albumin Urine Color Urine Appearance Urine pH Ur Specific [place] Urine Protein Urine Glucose (UA) Urine Ketones Urine Blood Urine Nitrite Urine Bilirubin Urine Urobilinogen Ur Leukocyte Esterase RPR Titer LABS NOTED. - Treatment Hospital Course: Detox Protocol Followed, Detoxed Safely, Responded well, Discharged Condition Good, Rehab Referral Accepted Patient has Accepted a Rehab Referral to: [facility] ([facility], [place], [place] - Medication Discharge Medications: Ambulatory Orders hydrOXYzine PAMOATE [Vistaril -] 50 mg PO BID PRN 12/21/17 Nifedipine ER [Procardia Xl -] 30 mg PO DAILY 30 Days #30 tab.er.24 12/24/17 metFORMIN HCL [Glucophage -] 850 mg PO BID 30 Days #60 tablet 12/24/17 - Diagnosis (1) Alcohol dependence with uncomplicated withdrawal Status: Acute (2) Nicotine dependence Status: Acute Qualifiers: Nicotine product type: cigarettes Substance use status: uncomplicated Qualified Code(s): F17.210 - Nicotine dependence, cigarettes, uncomplicated (3) DM Diabetes mellitus type 2 Status: Chronic (4) Essential hypertension Status: Chronic (5) Obesity Status: Chronic Qualifiers: Obesity type: unspecified obesity type Obesity classification: adult class 1 (BMI 30 - 34.9) Serious obesity comorbidity presence: unspecified whether serious comorbidity present Body mass index: unspecified BMI Qualified Code( s): E66.9 - Obesity, unspecified (6) Cannabis abuse Status: Acute (7) Substance induced mood disorder Status: Acute (8) Hypercholesterolemia Status: Chronic - AMA Did Patient Leave Against Medical Advice: No
== END 2017-12-24 09:29 | disposition home or self-care (01) | DRG 897 ==
LOC: YASAS 11:09 → Y3N 14:41
PROVIDERS: ADMIT Internal Medicine; ATTEND Internal Medicine
PROC: HZ2ZZZZ Detoxification Services for Substance Abuse Treatment (ICD-10-PCS; principal; 2017-12-21)
DX: F19.230 Other psychoactive substance dependence with withdrawal, uncomplicated (principal); F10.230 Alcohol dependence with withdrawal, uncomplicated; F12.10 Cannabis abuse, uncomplicated; F17.210 Nicotine dependence, cigarettes, uncomplicated; F19.24 Other psychoactive substance dependence with psychoactive substance-induced mood disorder; I10 Essential (primary) hypertension; E11.9 Type 2 diabetes mellitus without complications; E78.00 Pure hypercholesterolemia, unspecified; E66.9 Obesity, unspecified; Z68.33 Body mass index [BMI] 33.0-33.9, adult; Z87.438 Personal history of other diseases of male genital organs; Z91.14 Patient's other noncompliance with medication regimen; Z79.4 Long term (current) use of insulin; Z79.84 Long term (current) use of oral hypoglycemic drugs; Z91.013 Allergy to seafood; Z91.011 Allergy to milk products
CPT/HCPCS: 36415; 80053; 81003; 82962; 85027; 86593; 93005; 93010

== ENCOUNTER 2018-01-29 09:00 | Inpatient (IN) | payer MEDICARE, OTHER ==
[2018-01-29 09:13] VITALS: BMI 32.1
[2018-01-29] MEDS ORDERED: ACETAMINOPHEN 325 MG TABLET (FP) PO PRN (11:21)
[2018-01-29] MEDS ORDERED: LOPERAMIDE HCL 2 MG CAPSULE PO PRN (11:21)
[2018-01-29] MEDS ORDERED: MAGNESIUM HYDROX 2400MG/30ML ORAL SUSPENSION 30 ML CUP PO PRN (11:21)
[2018-01-29] MEDS ORDERED: hydrOXYzine PAMOATE 50 MG CAPSULE (FP) PO PRN (11:21)
[2018-01-29] MEDS ORDERED: guaiFENesin/D-METHORPHAN HB 10 ML UNIT-DOSE CUPS PO PRN (11:21)
[2018-01-29] MEDS ORDERED: MAGNESIUM CITRATE 300 ML BOTTLE PO PRN (11:21)
[2018-01-29] MEDS ORDERED: MENTHOL/PHENOL 1 EACH UD MM PRN (11:21)
[2018-01-29] MEDS ORDERED: chlordiazePOXIDE HCL 25 MG CAPSULE PO PRN (11:21)
[2018-01-29] MEDS ORDERED: IBUPROFEN 400 MG TABLET (FP) PO PRN (11:21)
[2018-01-29] MEDS ORDERED: P-EPHED 60MG/TRIPROLIDI 2.5MG TABLET PO PRN (11:21)
[2018-01-29] MEDS ORDERED: MAG HYDROX/AL HYDROX/SIMETH 30 ML UNIT-DOSE CUP PO PRN (11:21)
--- NOTE | 2018-01-29 11:21 | HP ---
CIWA Score - CIWA Score Nausea/Vomitin Muscle Tremors: 3 Anxiety: 3 Agitation: 3 Paroxysmal Sweats: 3 Orientation: 0-Oriented Tacttile Disturbances: 1-Very Mild Itch/Numbness Auditory Disturbances: 0-None Visual Disturbances: 0-None Headache: 2-Mild CIWA-Ar Total Score: 18 Admission [facility] Chief Complaint: alcohol withdrawal sx Allergies/Adverse Reactions: Allergies Allergy/AdvReac Type Severity Reaction Status Date / Time No Known Drug Allergies Allergy Verified 01/29/18 10:56 lactose AdvReac Severe Vomiting Verified 01/29/18 10:56 seafood Allergy Severe Rash Uncoded 01/29/18 10:56 WHITE MEAT AdvReac Severe Vomiting Uncoded 01/29/18 10:56 History of Present Illness: 52 yo m with alcohol use disorder, severe requesting inpateint detoxificationf anna lcohol becasue of withdrawal sx. no h/o seiures, DTS or SI reported, occasional marijauan use reported no smoking. PMHX anxieyt, depression, DM, HTN. Exam Limitations: No Limitations - Ebola screening Have you traveled outside of the country in the last 21 days: No (N) Have you had contact with anyone from an Ebola affected area: No Have you been sick,other than usual withdrawal symptoms: No Do you have a fever: No - Review of Systems Constitutional: Chills, Diaphoresis, Night Sweats, Changes in sleep, Weight Stable EENT: reports: No Symptoms Reported Respiratory: reports: No Symptoms reported Cardiac: reports: No Symptoms Reported GI: reports: Nausea, Poor Appetite, Poor Fluid Intake, Indigestion, Abdominal cramping : reports: No Symptoms Reported Musculoskeletal: reports: No Symptoms Reported Integumentary: reports: Flushing, Sweating Neuro: reports: Headache, Numbness, Tingling, Tremors Endocrine: reports: Increased Thirst Hematology: reports: No Symptoms Reported Psychiatric: reports: Judgement Intact, Mood/Affect Appropiate, Orientated x3, Anxious, Depressed Other Systems: Reviewed and Negative Patient History - Patient Medical History Hx Anemia: No Hx Asthma: No Hx Chronic Obstructive Pulmonary Disease (COPD): No Hx Cancer: No Hx Cardiac Disorders: No Hx Congestive Heart Failure: No Hx Hypertension: Yes (onmeds, has been taking) Hx Hypercholesterolemia: Yes (NOT CURRENTLY ON MEDS--NONCOMPLIANT WITH LOVANZA) Hx Pacemaker: No HX Cerebrovascular Accident: No Hx Seizures: No Hx Dementia: No Hx Diabetes: Yes (NIDDM, on meds) Hx Gastrointestinal Disorders: No Hx Liver Disease: No Hx Genitourinary Disorders: No Hx Sexually Transmitted Disorders: Yes (gonorrhea at age 27) Hx Renal Disease (ESRD): No Hx Thyroid Disease: No Hx Human Immunodeficiency Virus (HIV): No (NEGATIVE HX) Hx Hepatitis C: No Hx Depression: Yes Hx Suicide Attempt: No (no SI at this time) Hx Bipolar Disorder: No Hx Schizophrenia: No - Patient Surgical History Past Surgical History: No Hx Neurologic Surgery: No Hx Cataract Extraction: No Hx Cardiac Surgery: No Hx Lung Surgery: No Hx Breast Surgery: No Hx Breast Biopsy: No Hx Abdominal Surgery: No Hx Appendectomy: No Hx Cholecystectomy: No Hx Genitourinary Surgery: No Hx Section: No Hx Orthopedic Surgery: No Hx Hysterectomy: No Anesthesia Reaction: No - PPD History Previous Implant?: Yes Documented Results: Negative w/proof Implanted On Prior [facility] Admission?: Yes Date: 10/18/17 Results: 0 mm PPD to be Administered?: No - Reproductive History Patient is a Female of Child Bearing Age (11 -55 yrs old): No Patient : No - Smoking Cessation Smoking history: Former smoker Have you smoked in the past 12 months: Yes Aproximately how many cigarettes per day: 3 If you are a former smoker, when did you quit?: 6 mos. ago Cigars Per Day: 0 Hx Chewing Tobacco Use: No Initiated information on smoking cessation: Yes 'Breaking Loose' booklet given: 01/29/18 - Substance & Tx. History Hx Alcohol Use: Yes Hx Substance Use: Yes Substance Use Type: Alcohol, Marijuana Hx Substance Use Treatment: Yes (detox [facility] in [place]) - Substances Abused Alcohol-beer Route: Oral Frequency: Daily Amount used: 2-6 pks. Age of first use: 19 Date of Last Use: 01/29/18 [place] Route: Smoking Frequency: 1-3 times last 30 days Amount used: $5 Age of first use: 19 Date of Last Use: 01/28/18 Family Disease History - Family Disease History Family Disease History: Diabetes: Father, Mother Admission Physical Exam BHS - Vital Signs Vital Signs: Vital Signs - 24 hr 01/29/18 09:09 Temperature 95.7 F L Pulse Rate 98 H Respiratory 18 Rate Blood Pressure 153/107 - Physical General Appearance: Yes: Nourished, Appropriately Dressed, Disheveled, Mild Distress, Obese, Tremorous, Irritable, Sweating, Anxious HEENTM: Yes: Within Normal Limits, EOMI, Hearing grossly Normal, Normal ENT Inspection, Normocephalic, Normal Voice, JACKLYN, Pharynx Normal Respiratory: Yes: Within Normal Limits, Chest Non-Tender, Lungs Clear, Normal Breath Sounds, No Respiratory Distress, No Accessory Muscle Use Neck: Yes: Within Normal Limits, No masses,lesions,Nodules, Supple, Trachea in good position Breast: Yes: Breast Exam Deferred Cardiology: Yes: Within Normal Limits, Regular Rhythm, Regular Rate, S1, S2 Abdominal: Yes: Normal Bowel Sounds, Non Tender, Soft, Increased Bowel Sounds, Protuberent, Distended Genitourinary: Yes: Within Normal Limits Back: Yes: Within Normal Limits, Normal Inspection Musculoskeletal: Yes: Within Normal Limits, full range of Motion, Gait Steady, Pelvis Stable Extremities: Yes: Normal Capillary Refill, Normal Range of Motion, Non-Tender, Tremors 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: Yes: gullet slitter II-XII NML intact, Fully Oriented, Alert, Motor Strength 5/5, Normal Response, Depressed Affect Integumentary: Yes: Normal Color, Warm, Diaphoresis, Moist Lymphatic: Yes: Within Normal Limits - Addiitonal Findings: withdrawal sx - Diagnostic (1) Alcohol dependence with uncomplicated withdrawal Current Visit: No Status: Acute (2) Cannabis abuse Current Visit: No Status: Acute (3) Nicotine dependence Current Visit: No Status: Acute Qualifiers: Nicotine product type: cigarettes Substance use status: uncomplicated Qualified Code(s): F17.210 - Nicotine dependence, cigarettes, uncomplicated (4) Substance induced mood disorder Current Visit: No Status: Acute (5) DM Diabetes mellitus type 2 Current Visit: No Status: Chronic (6) Essential hypertension Current Visit: No Status: Chronic (7) Hypercholesterolemia Current Visit: No Status: Chronic Comment: NO MEDS (8) Obesity Current Visit: No Status: Chronic Qualifiers: Obesity type: unspecified obesity type Obesity classification: adult class 1 (BMI 30 - 34.9) Serious obesity comorbidity presence: unspecified whether serious comorbidity present Body mass index: unspecified BMI Qualified Code( s): E66.9 - Obesity, unspecified Cleared for Admission [facility] - Detox or Rehab [facility] Level of Care: Medically Managed Detox Regimen/Protocol: Librium [facility] Breath Alcohol Content Breath Alcohol Content: 0 Urine Drug Screen - Results Drug Screen Negative: No Urine Drug Screen Results: THC-Marijuana, BZO-Benzodiazepines
[2018-01-29] MEDS ORDERED: chlordiazePOXIDE HCL 25 MG CAPSULE PO ONE (11:45)
[2018-01-29] MEDS: metFORMIN HCL 500 MG TABLET (FP) PO SCH ×2 (12:16→17:30)
[2018-01-29] MEDS: NIFEdipine E.R. 30 MG TABLET (FP) PO SCH (12:16)
--- NOTE | 2018-01-29 14:26 | CONSULT ---
[facility] Psychiatric Consult - Data Date of interview: 01/29/18 Admission source: [facility] Identifying data: Pt is a 52 year old male, , without kids, receiving SSI, and residing in a bedroom he currently rents. This is one of multiple admissions for patient. Pt. admitted to for alcohol and cannabis dependence. Substance Abuse History: Following information confirmed with Mr. Key: Smoking Cessation. Smoking history: Former smoker. Have you smoked in the past 12 months: Yes. Aproximately how many cigarettes per day: 3. If you are a former smoker, when did you quit?: 6 mos. ago. Cigars Per Day: 0. Hx Chewing Tobacco Use: No. Initiated information on smoking cessation: Yes. ' Breaking Loose' booklet given: 01/29/18. - Substance & Tx. History. Hx Alcohol Use: Yes. Hx Substance Use: Yes. Substance Use Type: Alcohol, Marijuana. Hx Substance Use Treatment: Yes (detox [facility] in [place]). - Substances Abused. Alcohol-beer. Route: Oral. Frequency: Daily. Amount used: 2-6 pks. Age of first use: 19. Date of Last Use: 01/29/18. [place]. Route: Smoking. Frequency: 1-3 times last 30 days. Amount used: $ 5. Age of first use: 19. Date of Last Use: 01/28/18 Medical History: Hypertension, hypercholesterolemia, diabetes Psychiatric History: Patient's first encounter with a psychiatrist was in 2013 at [facility] clinic. Pt. was diagnosed with anxiety and started on buspar. Pt. d/c buspar after c/o dizziness and increase hunger. Pt. was seeing a psychiatrist at the [facility] clinic 6 months ago but no longer receives psychiatric outpatient treatment from that location. Pt. attended his intake appointment at [facility] on 01/22/18 but was seen by a medical provider instead of a psychiatrist. Pt. reports no outpatient care for approximately six months. Pt reports a diagnosis of anxiety disorder. Pt. denies h/o psychiatric hospitalizations and suicide attempt. Pt. currently denies suicidal and homicidal ideation. Physical/Sexual Abuse/Trauma History: Denies. Mental Status Exam - Mental Status Exam Alert and Oriented to: Time, Place, Person Cognitive Function: Good Patient Appearance: Well Groomed Mood: Euthymic Affect: Appropriate Patient Behavior: Cooperative Speech Pattern: Clear, Appropriate Voice Loudness: Normal Thought Process: Goal Oriented Thought Disorder: Not Present Hallucinations: Denies Suicidal Ideation: Denies Homicidal Ideation: Denies Insight/Judgement: Poor Sleep: Fair Appetite: Fair Muscle strength/Tone: Normal Gait/Station: Normal Psychiatric Findings - Problem List ([place] 1, 2,3) (1) Alcohol dependence with uncomplicated withdrawal Current Visit: Yes Status: Acute (2) Cannabis abuse Current Visit: Yes Status: Acute (3) Substance induced mood disorder Current Visit: Yes Status: Acute (4) Anxiety disorder Current Visit: Yes Status: Acute Comment: History. - Initial Treatment Plan Initial Treatment Plan: Psychoeducation provided. Detoxification provided. Vistaril 50mg q4h ordered by physician. Patient informed. No need for additional medication at this time. Observation.
--- NOTE | 2018-01-29 16:43 | EKG ---
Test Reason : Blood Pressure : / mmHG Vent. Rate : 078 BPM Atrial Rate : 078 BPM P-R Int : 142 ms QRS Dur : 088 ms QT Int : 364 ms P-R-T Axes : 068 -08 -11 degrees QTc Int : 414 ms NORMAL SINUS RHYTHM NORMAL ECG WHEN COMPARED WITH ECG OF 21-DEC-2017 16:47, NO SIGNIFICANT CHANGE WAS FOUND Confirmed by MD Puente Edward ([id number]) on 01/29/2018 4:43:09 PM Referred By: Confirmed By:Trung Puente MD
[2018-01-29 17:03] LABS: HEMATOCRIT 41.5 % (35.4-49); HEMOGLOBIN 14.1 GM/dL (11.7-16.9); MCH 30.3 pg (25.7-33.7); MCHC 34.1 g/dl (32.0-35.9); MEAN CELL VOLUME 88.8 fl (80-96); MEAN PLT VOLUME 9.6 fl (7.5-11.1); PLATELET COUNT 302 K/MM3 (134-434); RBC 4.67 M/mm3 (4.00-5.60); RDW 14.1 % (11.9-15.9); WHITE BLOOD COUNT 6.4 K/mm3 (4.0-10.0)
[2018-01-29 17:04] LABS: ANION GAP 15 (8-16); BILIRUBIN,TOTAL 0.2 mg/dL (0.2-1.0); BLOOD UREA NITROGEN 15 mg/dL (7-18); CALCIUM 9.2 mg/dL (8.5-10.1); CHLORIDE 100 mmol/L (98-107); CO2 25 mmol/L (21-32); CREATININE 0.7 mg/dL (0.7-1.3); POTASSIUM 4.3 mmol/L (3.5-5.1); SGOT/AST 20 U/L (15-37); SGPT/ALT 39 U/L (12-78); SODIUM 140 mmol/L (136-145); TOT PROT 7.8 g/dl (6.4-8.2)
[2018-01-29 17:05] LABS: ALK PHOS 91 U/L (45-117)
[2018-01-29 17:09] LABS: GLUCOSE,RANDOM 359 mg/dL (74-106)
[2018-01-29] MEDS: chlordiazePOXIDE HCL 25 MG CAPSULE PO SCH ×2 (18:08→22:19)
[2018-01-29 19:12] LABS: URINE APPEARANCE CLEAR; URINE BILIRUBIN NEGATIVE (<2.0 mg/dL); URINE BLOOD NEGATIVE (NEGATIVE); URINE COLOR LTYELLOW; URINE GLUCOSE (UA) 3+ (NEGATIVE); URINE KETONE TRACE (NEGATIVE); URINE LEUK ESTERASE NEGATIVE (NEGATIVE); URINE NITRITE NEGATIVE (NEGATIVE); URINE PROTEIN NEGATIVE (NEGATIVE); URINE UROBILINOGEN NEGATIVE mg/dL (0.2-1.0)
[2018-01-29] MEDS ORDERED: MELATONIN 5 MG TABLETS PO PRN (22:00)
[2018-01-29] MEDS: THIAMINE HCL 100 MG TABLET (FP) PO SCH (22:18)
[2018-01-30] MEDS: chlordiazePOXIDE HCL 25 MG CAPSULE PO SCH ×4 (05:56→22:24)
[2018-01-30] MEDS: metFORMIN HCL 500 MG TABLET (FP) PO SCH ×2 (07:26→16:39)
[2018-01-30] MEDS: NIFEdipine E.R. 30 MG TABLET (FP) PO SCH (10:10)
[2018-01-30] MEDS: PRENATAL VITAMINS W/ FOLIC ACID TABLET (FP) PO SCH (10:10)
--- NOTE | 2018-01-30 11:29 | PN ---
S CIWA - CIWA Score Nausea/Vomitin Muscle Tremors: 3 Anxiety: 3 Agitation: 3 Paroxysmal Sweats: 1-Minimal Palms Moist Orientation: 0-Oriented Tacttile Disturbances: 1-Very Mild Itch/Numbness Auditory Disturbances: 1-Very Mild Visual Disturbances: 0-None Headache: 2-Mild CIWA-Ar Total Score: 17 BHS Progress Note (SOAP) Subjective: ALERT,IRRITABLE,ANXIOUS,INTERRUPTED SLEEP,TREMOR,PAIN IN THE BODY Objective: 01/30/18 11:27 Vital Signs Temperature 97.9 F 01/30/18 10:00 Pulse Rate 86 01/30/18 10:00 Respiratory Rate 20 01/30/18 10:00 Blood Pressure 135/78 01/30/18 10:00 O2 Sat by Pulse Oximetry (%) EKG NSR,NORMAL ECG 01/30/18 11:27 Laboratory Last Values WBC 6.4 K/mm3 (4.0-10.0) 01/29/18 11:40 RBC 4.67 M/mm3 (4.00-5.60) 01/29/18 11:40 Hgb 14.1 GM/dL (11.7-16.9) 01/29/18 11:40 Hct 41.5 % (35.4-49) 01/29/18 11:40 MCV 88.8 fl (80-96) 01/29/18 11:40 MCH 30.3 pg (25.7-33.7) 01/29/18 11:40 MCHC 34.1 g/dl (32.0-35.9) 01/29/18 11:40 RDW 14.1 % (11.9-15.9) 01/29/18 11:40 Plt Count 302 K/MM3 (134-434) D 01/29/18 11:40 MPV 9.6 fl (7.5-11.1) 01/29/18 11:40 Sodium 140 mmol/L (136-145) 01/29/18 11:40 Potassium 4.3 mmol/L (3.5-5.1) 01/29/18 11:40 Chloride 100 mmol/L (98-107) 01/29/18 11:40 Carbon Dioxide 25 mmol/L (21-32) 01/29/18 11:40 Anion Gap 15 (8-16) 01/29/18 11:40 BUN 15 mg/dL (7-18) D 01/29/18 11:40 Creatinine 0.7 mg/dL (0.7-1.3) D 01/29/18 11:40 Creat Clearance w eGFR > 60 (>60) 01/29/18 11:40 POC Glucometer 215 UNITS (80-120) 01/30/18 05:55 Random Glucose 359 mg/dL (74-106) H* 01/29/18 11:40 Calcium 9.2 mg/dL (8.5-10.1) 01/29/18 11:40 Total Bilirubin 0.2 mg/dL (0.2-1.0) D 01/29/18 11:40 AST 20 U/L (15-37) D 01/29/18 11:40 ALT 39 U/L (12-78) D 01/29/18 11:40 Alkaline Phosphatase 91 U/L (45-117) 01/29/18 11:40 Total Protein 7.8 g/dl (6.4-8.2) 01/29/18 11:40 Albumin 4.0 g/dl (3.4-5.0) 01/29/18 11:40 Urine Color Ltyellow 01/29/18 14:00 Urine Appearance Clear 01/29/18 14:00 Urine pH 7.0 (5.0-8.0) 01/29/18 14:00 Ur Specific [place] 1.030 (1.001-1.035) 01/29/18 14:00 Urine Protein Negative (NEGATIVE) 01/29/18 14:00 Urine Glucose (UA) 3+ (NEGATIVE) H 01/29/18 14:00 Urine Ketones Trace (NEGATIVE) H 01/29/18 14:00 Urine Blood Negative (NEGATIVE) 01/29/18 14:00 Urine Nitrite Negative (NEGATIVE) 01/29/18 14:00 Urine Bilirubin Negative (<2.0 mg/dL) 01/29/18 14:00 Urine Urobilinogen Negative mg/dL (0.2-1.0) 01/29/18 14:00 Ur Leukocyte Esterase Negative (NEGATIVE) 01/29/18 14:00 RPR Titer Nonreactive (NONREACTIVE) 01/29/18 11:40 Assessment: 01/30/18 11:28 WITHDRAWAL SYMPTOM Plan: CONTINUE DETOX,BGM MONITORING
[2018-01-30] MEDS: THIAMINE HCL 100 MG TABLET (FP) PO SCH (23:13)
[2018-01-31] MEDS: metFORMIN HCL 500 MG TABLET (FP) PO SCH ×2 (06:04→16:47)
[2018-01-31] MEDS: chlordiazePOXIDE HCL 25 MG CAPSULE PO SCH ×2 (06:04→10:43)
[2018-01-31] MEDS: NIFEdipine E.R. 30 MG TABLET (FP) PO SCH (10:42)
[2018-01-31] MEDS: PRENATAL VITAMINS W/ FOLIC ACID TABLET (FP) PO SCH (10:42)
--- NOTE | 2018-01-31 12:27 | PN ---
S CIWA - CIWA Score Nausea/Vomitin Muscle Tremors: 3 Anxiety: 3 Agitation: 2 Paroxysmal Sweats: 1-Minimal Palms Moist Orientation: 0-Oriented Tacttile Disturbances: 1-Very Mild Itch/Numbness Auditory Disturbances: 1-Very Mild Visual Disturbances: 0-None Headache: 2-Mild CIWA-Ar Total Score: 16 BHS Progress Note (SOAP) Subjective: ALERT,IRRITABLE,ANXIOUS,INTERRUPTED SLEEP,TREMOR Objective: 01/31/18 12:25 Vital Signs Temperature 99.5 F 01/31/18 10:00 Pulse Rate 91 H 01/31/18 10:00 Respiratory Rate 20 01/31/18 10:00 Blood Pressure 136/89 01/31/18 10:00 O2 Sat by Pulse Oximetry (%) 01/31/18 12:25 Laboratory Last Values WBC 6.4 K/mm3 (4.0-10.0) 01/29/18 11:40 RBC 4.67 M/mm3 (4.00-5.60) 01/29/18 11:40 Hgb 14.1 GM/dL (11.7-16.9) 01/29/18 11:40 Hct 41.5 % (35.4-49) 01/29/18 11:40 MCV 88.8 fl (80-96) 01/29/18 11:40 MCH 30.3 pg (25.7-33.7) 01/29/18 11:40 MCHC 34.1 g/dl (32.0-35.9) 01/29/18 11:40 RDW 14.1 % (11.9-15.9) 01/29/18 11:40 Plt Count 302 K/MM3 (134-434) D 01/29/18 11:40 MPV 9.6 fl (7.5-11.1) 01/29/18 11:40 Sodium 140 mmol/L (136-145) 01/29/18 11:40 Potassium 4.3 mmol/L (3.5-5.1) 01/29/18 11:40 Chloride 100 mmol/L (98-107) 01/29/18 11:40 Carbon Dioxide 25 mmol/L (21-32) 01/29/18 11:40 Anion Gap 15 (8-16) 01/29/18 11:40 BUN 15 mg/dL (7-18) D 01/29/18 11:40 Creatinine 0.7 mg/dL (0.7-1.3) D 01/29/18 11:40 Creat Clearance w eGFR > 60 (>60) 01/29/18 11:40 POC Glucometer 252 UNITS (80-120) 01/31/18 06:03 Random Glucose 359 mg/dL (74-106) H* 01/29/18 11:40 Calcium 9.2 mg/dL (8.5-10.1) 01/29/18 11:40 Total Bilirubin 0.2 mg/dL (0.2-1.0) D 01/29/18 11:40 AST 20 U/L (15-37) D 01/29/18 11:40 ALT 39 U/L (12-78) D 01/29/18 11:40 Alkaline Phosphatase 91 U/L (45-117) 01/29/18 11:40 Total Protein 7.8 g/dl (6.4-8.2) 01/29/18 11:40 Albumin 4.0 g/dl (3.4-5.0) 01/29/18 11:40 Urine Color Ltyellow 01/29/18 14:00 Urine Appearance Clear 01/29/18 14:00 Urine pH 7.0 (5.0-8.0) 01/29/18 14:00 Ur Specific [place] 1.030 (1.001-1.035) 01/29/18 14:00 Urine Protein Negative (NEGATIVE) 01/29/18 14:00 Urine Glucose (UA) 3+ (NEGATIVE) H 01/29/18 14:00 Urine Ketones Trace (NEGATIVE) H 01/29/18 14:00 Urine Blood Negative (NEGATIVE) 01/29/18 14:00 Urine Nitrite Negative (NEGATIVE) 01/29/18 14:00 Urine Bilirubin Negative (<2.0 mg/dL) 01/29/18 14:00 Urine Urobilinogen Negative mg/dL (0.2-1.0) 01/29/18 14:00 Ur Leukocyte Esterase Negative (NEGATIVE) 01/29/18 14:00 RPR Titer Nonreactive (NONREACTIVE) 01/29/18 11:40 Assessment: 01/31/18 12:26 WITHDRAWAL SYMPTOM Plan: CONTINUE DETOX,BGM MONITORING,CONTINUE METFORMIN 500 MGS PO BID
[2018-01-31] MEDS ORDERED: chlordiazePOXIDE HCL 25 MG CAPSULE PO PRN (16:52)
[2018-01-31] MEDS ORDERED: metFORMIN HCL 500 MG TABLET (FP) PO SCH (16:54)
[2018-01-31] MEDS ORDERED: chlordiazePOXIDE 5 MG CAPSULE PO SCH (17:00)
[2018-01-31] MEDS ORDERED: LISINOPRIL 5 MG TABLET (FP) PO SCH (17:00)
[2018-01-31] MEDS: chlordiazePOXIDE 5 MG CAPSULE PO SCH ×2 (17:05→22:16)
[2018-01-31] MEDS: THIAMINE HCL 100 MG TABLET (FP) PO SCH (22:16)
[2018-02-01] MEDS: chlordiazePOXIDE 5 MG CAPSULE PO SCH (05:28)
[2018-02-01 06:30] VITALS: BP 131/78; PULSE 87; TEMP 97.2
--- NOTE | 2018-02-01 08:34 | PN ---
S Progress Note (SOAP) Subjective: ALERT,NO COMPLAINT Objective: 02/01/18 08:32 Vital Signs Temperature 97.2 F L 02/01/18 06:00 Pulse Rate 87 02/01/18 06:00 Respiratory Rate 18 02/01/18 06:00 Blood Pressure 131/78 02/01/18 06:00 O2 Sat by Pulse Oximetry (%) Assessment: 02/01/18 08:32 NO WITHDRAWAL SYMPTOM,STABLE FOR DISCHARGE TODAY Plan: DISCHARGE,FOLLOW UP WITH AFTER CARE PROGRAM ARRANGEMENT
--- NOTE | 2018-02-01 08:40 | DS ---
[facility] Detox Discharge Summary Admission Date: 01/29/18 Discharge Date: 02/01/18 - History Present History: Alcohol Dependence, Cocaine Dependence Additional Comments: FOLLOW UP WITH AFTER CARE PROGRAM ARRANGEMENT Pertinent Past History: ESSENTIAL HYPERTENSION TYPE 2 DM HYPERCHOLESTEROLEMIA OBESITY NICOTINE DEPENDENCE CANNABIS DEPENDENCE - Physical Exam Results Vital Signs: Vital Signs Temperature 97.2 F L 02/01/18 06:00 Pulse Rate 87 02/01/18 06:00 Respiratory Rate 18 02/01/18 06:00 Blood Pressure 131/78 02/01/18 06:00 O2 Sat by Pulse Oximetry (%) Pertinent Admission Physical Exam Findings: WITHDRAWAL SIGNS AND SYMPTOM Laboratory Last Values WBC 6.4 K/mm3 (4.0-10.0) 01/29/18 11:40 RBC 4.67 M/mm3 (4.00-5.60) 01/29/18 11:40 Hgb 14.1 GM/dL (11.7-16.9) 01/29/18 11:40 Hct 41.5 % (35.4-49) 01/29/18 11:40 MCV 88.8 fl (80-96) 01/29/18 11:40 MCH 30.3 pg (25.7-33.7) 01/29/18 11:40 MCHC 34.1 g/dl (32.0-35.9) 01/29/18 11:40 RDW 14.1 % (11.9-15.9) 01/29/18 11:40 Plt Count 302 K/MM3 (134-434) D 01/29/18 11:40 MPV 9.6 fl (7.5-11.1) 01/29/18 11:40 Sodium 140 mmol/L (136-145) 01/29/18 11:40 Potassium 4.3 mmol/L (3.5-5.1) 01/29/18 11:40 Chloride 100 mmol/L (98-107) 01/29/18 11:40 Carbon Dioxide 25 mmol/L (21-32) 01/29/18 11:40 Anion Gap 15 (8-16) 01/29/18 11:40 BUN 15 mg/dL (7-18) D 01/29/18 11:40 Creatinine 0.7 mg/dL (0.7-1.3) D 01/29/18 11:40 Creat Clearance w eGFR > 60 (>60) 01/29/18 11:40 POC Glucometer 291 UNITS (80-120) 01/31/18 16:42 Random Glucose 359 mg/dL (74-106) H* 01/29/18 11:40 Calcium 9.2 mg/dL (8.5-10.1) 01/29/18 11:40 Total Bilirubin 0.2 mg/dL (0.2-1.0) D 01/29/18 11:40 AST 20 U/L (15-37) D 01/29/18 11:40 ALT 39 U/L (12-78) D 01/29/18 11:40 Alkaline Phosphatase 91 U/L (45-117) 01/29/18 11:40 Total Protein 7.8 g/dl (6.4-8.2) 01/29/18 11:40 Albumin 4.0 g/dl (3.4-5.0) 01/29/18 11:40 Urine Color Ltyellow 01/29/18 14:00 Urine Appearance Clear 01/29/18 14:00 Urine pH 7.0 (5.0-8.0) 01/29/18 14:00 Ur Specific [place] 1.030 (1.001-1.035) 01/29/18 14:00 Urine Protein Negative (NEGATIVE) 01/29/18 14:00 Urine Glucose (UA) 3+ (NEGATIVE) H 01/29/18 14:00 Urine Ketones Trace (NEGATIVE) H 01/29/18 14:00 Urine Blood Negative (NEGATIVE) 01/29/18 14:00 Urine Nitrite Negative (NEGATIVE) 01/29/18 14:00 Urine Bilirubin Negative (<2.0 mg/dL) 01/29/18 14:00 Urine Urobilinogen Negative mg/dL (0.2-1.0) 01/29/18 14:00 Ur Leukocyte Esterase Negative (NEGATIVE) 01/29/18 14:00 RPR Titer Nonreactive (NONREACTIVE) 01/29/18 11:40 Vital Signs Temperature 97.2 F L 02/01/18 06:00 Pulse Rate 87 02/01/18 06:00 Respiratory Rate 18 02/01/18 06:00 Blood Pressure 131/78 02/01/18 06:00 O2 Sat by Pulse Oximetry (%) - Treatment Hospital Course: Detox Protocol Followed, Detoxed Safely, Responded well, Discharged Condition Good Patient has Accepted a Rehab Referral to: DECLINED - Medication Discharge Medications: Ambulatory Orders Nifedipine ER [Procardia XL -] 30 mg PO DAILY 30 Days #30 tab.er.[id number] 01/31/18 metFORMIN HCL [Glucophage -] 750 mg PO BID@0700,1630 #60 tablet 01/31/18 - Diagnosis (1) Alcohol dependence with uncomplicated withdrawal Status: Acute (2) Cocaine dependence Status: Acute (3) Cannabis dependence Status: Acute (4) Substance induced mood disorder Status: Acute (5) Nicotine dependence Status: Acute Qualifiers: Nicotine product type: cigarettes Substance use status: uncomplicated Qualified Code(s): F17.210 - Nicotine dependence, cigarettes, uncomplicated (6) DM Diabetes mellitus type 2 Status: Chronic (7) Essential hypertension Status: Chronic (8) Hypercholesterolemia Status: Chronic (9) Obesity Status: Chronic Qualifiers: Obesity type: unspecified obesity type Obesity classification: adult class 1 (BMI 30 - 34.9) Serious obesity comorbidity presence: unspecified whether serious comorbidity present Body mass index: unspecified BMI Qualified Code( s): E66.9 - Obesity, unspecified - AMA Did Patient Leave Against Medical Advice: No
[2018-02-01] MEDS ORDERED: chlordiazePOXIDE HCL 10 MG CAPSULE PO SCH (17:00)
== END 2018-02-01 06:36 | disposition home or self-care (01) | DRG 897 ==
LOC: YASAS 09:00 → Y6N 11:40
PROVIDERS: ADMIT Internal Medicine; ATTEND Internal Medicine
PROC: HZ2ZZZZ Detoxification Services for Substance Abuse Treatment (ICD-10-PCS; principal; 2018-01-29)
DX: F19.230 Other psychoactive substance dependence with withdrawal, uncomplicated (principal); F14.20 Cocaine dependence, uncomplicated; F10.230 Alcohol dependence with withdrawal, uncomplicated; F12.20 Cannabis dependence, uncomplicated; F17.210 Nicotine dependence, cigarettes, uncomplicated; F19.24 Other psychoactive substance dependence with psychoactive substance-induced mood disorder; F41.9 Anxiety disorder, unspecified; I10 Essential (primary) hypertension; E11.9 Type 2 diabetes mellitus without complications; E78.00 Pure hypercholesterolemia, unspecified; E66.09 Other obesity due to excess calories; Z68.32 Body mass index [BMI] 32.0-32.9, adult; Z91.14 Patient's other noncompliance with medication regimen
CPT/HCPCS: 36415; 80053; 81003; 82962; 85027; 86593; 93005; 93010

== ENCOUNTER 2018-05-08 08:30 | Inpatient (IN) | payer OTHER ==
[2018-05-08 09:18] VITALS: BMI 32.1
--- NOTE | 2018-05-08 10:56 | HP ---
CIWA Score - CIWA Score Nausea/Vomitin Muscle Tremors: 1-None Visible, but [place] Anxiety: 3 Agitation: 0-Normal Activity Paroxysmal Sweats: 2 Orientation: 0-Oriented Tacttile Disturbances: 2-Mild Itch/Numbness/Burn Auditory Disturbances: 0-None Visual Disturbances: 0-None Headache: 2-Mild CIWA-Ar Total Score: 12 Admission [facility] Chief Complaint: ETOH WITHDRAWAL SYMPTOMS Allergies/Adverse Reactions: Allergies Allergy/AdvReac Type Severity Reaction Status Date / Time No Known Drug Allergies Allergy Verified 05/08/18 10:06 lactose AdvReac Severe Vomiting Verified 05/08/18 10:06 seafood Allergy Severe Rash Uncoded 05/08/18 10:06 WHITE MEAT AdvReac Severe Vomiting Uncoded 05/08/18 10:06 History of Present Illness: PATIENT PRESENTS WITH ETOH WITHDRAWAL SYMPTOMS. PATIENT STARTED DRINKING AND SMOKING MARIJUANA AT AGE 19. DRINKS UP TO 12 BEERS DAILY AND 1 BAG OF MARIJUANA WEEKLY. LAST DRINK EARLY THIS MORNING AT 2AM. LAST TIME HE SMOKED MARIJUANA WAS ALSO LAST NIGHT. DENIES HAVNG HX OF SEIZURES. WENT TO [facility] THIS PAST WEEK AND TREATED WITH ORAL BENZODIAZEPINE MEDICATION. PMH INCLUDES DM , HTN, HLD AND DEPRESSION. DENIES S1/HI AND SUICIDE ATTEMPTS. Exam Limitations: No Limitations - Ebola screening Have you traveled outside of the country in the last 21 days: No Have you had contact with anyone from an Ebola affected area: No Have you been sick,other than usual withdrawal symptoms: No Do you have a fever: No - Review of Systems Constitutional: Chills, Night Sweats, Changes in sleep EENT: reports: Nose Congestion Respiratory: reports: No Symptoms reported Cardiac: reports: No Symptoms Reported GI: reports: Diarrhea, Nausea, Poor Fluid Intake, Abdominal cramping : reports: No Symptoms Reported Musculoskeletal: reports: No Symptoms Reported Integumentary: reports: Sweating Neuro: reports: Numbness, Tingling, Tremors Endocrine: reports: No Symptoms Reported Hematology: reports: No Symptoms Reported Psychiatric: reports: Orientated x3, Anxious, Depressed Patient History - Patient Medical History Hx Anemia: No Hx Asthma: No Hx Chronic Obstructive Pulmonary Disease (COPD): No Hx Cancer: No Hx Cardiac Disorders: No Hx Congestive Heart Failure: No Hx Hypertension: Yes (onmeds,) Hx Hypercholesterolemia: Yes (NOT CURRENTLY ON MEDS--NONCOMPLIANT WITH LOVANZA) Hx Pacemaker: No HX Cerebrovascular Accident: No Hx Seizures: No Hx Dementia: No Hx Diabetes: Yes (NIDDM, on meds) Hx Gastrointestinal Disorders: No Hx Liver Disease: No Hx Genitourinary Disorders: No Hx Sexually Transmitted Disorders: Yes (gonorrhea at age 27) Hx Renal Disease (ESRD): No Hx Thyroid Disease: No Hx Human Immunodeficiency Virus (HIV): No (NEGATIVE HX) Hx Hepatitis C: No Hx Depression: Yes Hx Suicide Attempt: No (no SI at this time) Hx Bipolar Disorder: No Hx Schizophrenia: No - Patient Surgical History Past Surgical History: No Hx Neurologic Surgery: No Hx Cataract Extraction: No Hx Cardiac Surgery: No Hx Lung Surgery: No Hx Breast Surgery: No Hx Breast Biopsy: No Hx Abdominal Surgery: No Hx Appendectomy: No Hx Cholecystectomy: No Hx Genitourinary Surgery: No Hx Orthopedic Surgery: No Anesthesia Reaction: No - PPD History Previous Implant?: Yes Documented Results: Negative w/proof Implanted On Prior R Admission?: Yes Date: 10/18/17 Results: NEGATIVE PPD to be Administered?: No - Smoking Cessation Smoking history: Former smoker Have you smoked in the past 12 months: Yes Aproximately how many cigarettes per day: 5 If you are a former smoker, when did you quit?: 6 mos. ago Cigars Per Day: 0 Hx Chewing Tobacco Use: No Initiated information on smoking cessation: No - Substance & Tx. History Hx Alcohol Use: Yes Hx Substance Use: Yes Substance Use Type: Alcohol, Marijuana Hx Substance Use Treatment: Yes - Substances Abused Alcohol Route: Oral Frequency: Daily Amount used: 15 CANS OF BEER 12 OUNCES, 1 PINT OF VODKA Age of first use: 19 Date of Last Use: 05/07/18 Marijuana/Hashish Route: Smoking Frequency: 1-3 times last 30 days Amount used: $60 Age of first use: 19 Date of Last Use: 05/07/18 Family Disease History - Family Disease History Family Disease History: Diabetes: Father, Mother Admission Physical Exam BHS - Vital Signs Vital Signs: Vital Signs - 24 hr 05/08/18 09:16 Temperature 97.2 F L Pulse Rate 67 Respiratory 18 Rate Blood Pressure 131/85 - Physical General Appearance: Yes: Disheveled, Tremorous, Sweating, Anxious HEENTM: Yes: EOMI, Hearing grossly Normal, Normocephalic, JACKLYN, Pharynx Normal, Nasal Congestion Respiratory: Yes: Chest Non-Tender, Lungs Clear, Normal Breath Sounds, No Respiratory Distress, No Accessory Muscle Use Neck: Yes: No masses,lesions,Nodules, Supple Breast: Yes: Breast Exam Deferred Cardiology: Yes: Regular Rhythm, Regular Rate, S1, S2, Edema Abdominal: Yes: Normal Bowel Sounds, Non Tender, Soft Genitourinary: Yes: Within Normal Limits Back: Yes: Normal Inspection Musculoskeletal: Yes: full range of Motion, Gait Steady Extremities: Yes: Normal Inspection, Normal Range of Motion, Non-Tender, Tremors , Pedal Edema 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: Yes: fishing rod marker II-XII NML intact, Fully Oriented, Alert, Motor Strength 5/5, Normal Response, Numbness, Depressed Affect Integumentary: Yes: Normal Color, Warm, Moist Lymphatic: Yes: Within Normal Limits - Diagnostic (1) Alcohol dependence with uncomplicated withdrawal Current Visit: Yes Status: Acute (2) Anxiety disorder Current Visit: Yes Status: Suspected Qualifiers: Anxiety disorder type: unspecified anxiety disorder Qualified Code(s): F41.9 - Anxiety disorder, unspecified Comment: History. (3) Cannabis abuse Current Visit: Yes Status: Chronic (4) DM Diabetes mellitus type 2 Current Visit: Yes Status: Chronic (5) Essential hypertension Current Visit: Yes Status: Chronic (6) Hypercholesterolemia Current Visit: Yes Status: Chronic Comment: NO MEDS Cleared for Admission [facility] - Detox or Rehab [facility] Level of Care: Medically Managed Detox Regimen/Protocol: Librium [facility] Breath Alcohol Content Breath Alcohol Content: 0 Urine Drug Screen - Results Drug Screen Negative: No Urine Drug Screen Results: THC-Marijuana, BZO-Benzodiazepines
[2018-05-08] MEDS ORDERED: hydrOXYzine PAMOATE 50 MG CAPSULE (FP) PO PRN (11:04)
[2018-05-08] MEDS ORDERED: guaiFENesin/D-METHORPHAN HB 10 ML UNIT-DOSE CUPS PO PRN (11:04)
[2018-05-08] MEDS ORDERED: MAGNESIUM CITRATE 300 ML BOTTLE PO PRN (11:04)
[2018-05-08] MEDS ORDERED: IBUPROFEN 400 MG TABLET (FP) PO PRN (11:04)
[2018-05-08] MEDS ORDERED: ACETAMINOPHEN 325 MG TABLET (FP) PO PRN (11:04)
[2018-05-08] MEDS ORDERED: P-EPHED 60MG/TRIPROLIDI 2.5MG TABLET PO PRN (11:04)
[2018-05-08] MEDS ORDERED: LOPERAMIDE HCL 2 MG CAPSULE PO PRN (11:04)
[2018-05-08] MEDS ORDERED: MENTHOL/PHENOL 1 EACH UD MM PRN (11:04)
[2018-05-08] MEDS ORDERED: MAG HYDROX/AL HYDROX/SIMETH 30 ML UNIT-DOSE CUP PO PRN (11:04)
[2018-05-08] MEDS ORDERED: chlordiazePOXIDE HCL 25 MG CAPSULE PO ONE (11:33)
[2018-05-08] MEDS ORDERED: chlordiazePOXIDE HCL 25 MG CAPSULE PO PRN (11:33)
[2018-05-08] MEDS: NIFEdipine E.R. 30 MG TABLET (FP) PO SCH (11:59)
[2018-05-08] MEDS: chlordiazePOXIDE HCL 25 MG CAPSULE PO SCH ×2 (17:43→22:17)
[2018-05-08 18:01] LABS: URINE APPEARANCE TURBID; URINE BILIRUBIN NEGATIVE (<2.0 mg/dL); URINE COLOR YELLOW; URINE GLUCOSE (UA) 1+ (NEGATIVE); URINE KETONE NEGATIVE (NEGATIVE); URINE LEUK ESTERASE NEGATIVE (NEGATIVE); URINE NITRITE NEGATIVE (NEGATIVE)
[2018-05-08 18:05] LABS: URINE PROTEIN 1+ (NEGATIVE)
[2018-05-08 18:11] LABS: URINE BACTERIA FEW /hpf (NONE SEEN); URINE MUCUS FEW
[2018-05-08] MEDS: THIAMINE HCL 100 MG TABLET (FP) PO SCH (22:17)
[2018-05-09] MEDS: chlordiazePOXIDE HCL 25 MG CAPSULE PO SCH ×4 (05:55→22:31)
--- NOTE | 2018-05-09 09:28 | CONSULT ---
[facility] Psychiatric Consult - Data Date of interview: 05/09/18 Admission source: [facility] Identifying data: Patient is a 52 year old male, without kids, currently residing in a hotel room, unemployed, and supported by SSI/SSD. This is one of multiple admissions for patient. Pt admitted to for alcohol dependence. Substance Abuse History: Smoking Cessation. Smoking history: Former smoker. Have you smoked in the past 12 months: Yes. Aproximately how many cigarettes per day: 5. If you are a former smoker, when did you quit?: 6 mos. ago. Cigars Per Day: 0. Hx Chewing Tobacco Use: No. Initiated information on smoking cessation: No. - Substance & Tx. History. Hx Alcohol Use: Yes. Hx Substance Use: Yes. Substance Use Type: Alcohol, Marijuana. Hx Substance Use Treatment: Yes. - Substances Abused. Alcohol. Route: Oral. Frequency: Daily. Amount used: 15 CANS OF BEER 12 OUNCES, 1 PINT OF VODKA. Age of first use: 19. Date of Last Use: 05/07/18. Marijuana/Hashish. Route: Smoking. Frequency: 1-3 times last 30 days. Amount used: $60. Age of first use: 19. Date of Last Use: 05/07/18 Medical History: hypertension, hypercholesterolemia, Diabetes Psychiatric History: Patient's first encounter with a psychiatrist was in 2013 at [facility] ambulatory clinic. Pt. was diagnosed with anxiety and started on buspar. Pt. d/c buspar after c/o dizziness and increase hunger. Pt. was seeing a psychiatrist at the [facility] clinic 9 months ago but no longer receives psychiatric outpatient treatment from that location. Pt. was then receiving medication refills from [facility]. Pt attended his intake appointment at [facility] OPD clinic on 01/22/18 but was seen by a medical provider instead of a psychiatrist. Currently, OPD is provided by [facility]. Pt. is prescribed vistaril 25mg q4 as needed for anxiety. Pt reports a diagnosis of anxiety disorder. Pt. denies h/o psychiatric hospitalizations and suicide attempt. Pt. currently denies suicidal and homicidal ideation. Physical/Sexual Abuse/Trauma History: Denies. Mental Status Exam - Mental Status Exam Alert and Oriented to: Time, Place, Person Cognitive Function: Good Patient Appearance: Well Groomed Mood: Hopeful, Euthymic Affect: Mood Congruent Patient Behavior: Appropriate, Cooperative Speech Pattern: Clear, Appropriate Voice Loudness: Normal Thought Process: Intact, Goal Oriented Thought Disorder: Not Present Hallucinations: Denies Suicidal Ideation: Denies Homicidal Ideation: Denies Insight/Judgement: Poor Sleep: Fair Appetite: Fair Muscle strength/Tone: Normal Gait/Station: Normal Psychiatric Findings - Problem List ([place] 1, 2,3) (1) Alcohol dependence with uncomplicated withdrawal Current Visit: Yes Status: Acute (2) DM Diabetes mellitus type 2 Current Visit: Yes Status: Chronic (3) Essential hypertension Current Visit: Yes Status: Chronic (4) Hypercholesterolemia Current Visit: Yes Status: Chronic Comment: NO MEDS (5) Anxiety disorder Current Visit: Yes Status: Chronic Qualifiers: Anxiety disorder type: unspecified anxiety disorder Qualified Code(s): F41.9 - Anxiety disorder, unspecified Comment: History. - Initial Treatment Plan Initial Treatment Plan: Psychoeducation provided. Detoxificaion in progress. Will order vistaril 25mg q4h for anxiety. Benefits and side effects discussed. Verbal consent given.
[2018-05-09] MEDS: NIFEdipine E.R. 30 MG TABLET (FP) PO SCH (10:26)
[2018-05-09] MEDS: PRENATAL VITAMINS W/ FOLIC ACID TABLET (FP) PO SCH (10:26)
[2018-05-09] MEDS: hydrOXYzine PAMOATE 25 MG CAPSULE (FP) PO PRN (10:28)
--- NOTE | 2018-05-09 11:21 | PN ---
S CIWA - CIWA Score Nausea/Vomitin-No Nausea/No Vomiting Muscle Tremors: 5 Anxiety: 5 Agitation: 4-Moderately Restless Paroxysmal Sweats: 1-Minimal Palms Moist Orientation: 0-Oriented Tacttile Disturbances: 0-None Auditory Disturbances: 0-None Visual Disturbances: 0-None Headache: 0-None Present CIWA-Ar Total Score: 15 BHS Progress Note (SOAP) Subjective: ANXIETY/NERVOUSNESS, TREMORS. Objective: 05/09/18 11:21 Vital Signs 05/09/18 05/09/18 05/09/18 03:30 06:17 09:17 Temperature 98.1 F 97.8 F Pulse Rate 65 78 Respiratory 18 18 18 Rate Blood Pressure 91/62 131/87 Laboratory Tests 05/08/18 05/08/18 05/08/18 10:19 16:19 16:45 POC Glucometer 176 193 Urine Color Yellow Urine Appearance Turbid Urine pH 5.0 D Ur Specific [place] 1.027 Urine Protein 1+ H Urine Glucose (UA) 1+ H Urine Ketones Negative Urine Blood Negative Urine Nitrite Negative Urine Bilirubin Negative Urine Urobilinogen 2.0 Ur Leukocyte Esterase Negative Urine WBC (Auto) 159 Urine RBC (Auto) None Urine Bacteria Few Urine Mucus Few 05/09/18 05:57 POC Glucometer 230 Urine Color Urine Appearance Urine pH Ur Specific [place] Urine Protein Urine Glucose (UA) Urine Ketones Urine Blood Urine Nitrite Urine Bilirubin Urine Urobilinogen Ur Leukocyte Esterase Urine WBC (Auto) Urine RBC (Auto) Urine Bacteria Urine Mucus OTHER LABS PENDING Assessment: 05/09/18 11:21 WITHDRAWAL SX Plan: CONTINUE DETOX INCREASE PO FLUIDS
--- NOTE | 2018-05-09 11:31 | EKG ---
Test Reason : Blood Pressure : / mmHG Vent. Rate : 062 BPM Atrial Rate : 062 BPM P-R Int : 146 ms QRS Dur : 090 ms QT Int : 414 ms P-R-T Axes : 043 -06 -10 degrees QTc Int : 420 ms NORMAL SINUS RHYTHM NORMAL ECG WHEN COMPARED WITH ECG OF 29-JAN-2018 12:24, NO SIGNIFICANT CHANGE WAS FOUND Confirmed by ERIC LAND MD ([id number]) on 05/09/2018 11:31:08 AM Referred By: Confirmed By:ERIC LAND MD
[2018-05-09 15:59] LABS: ALBUMIN 3.8 g/dl (3.4-5.0); ALK PHOS 80 U/L (45-117); ANION GAP 5 (8-16); BILIRUBIN,TOTAL 0.5 mg/dL (0.2-1.0); BLOOD UREA NITROGEN 7 mg/dL (7-18); CALCIUM 8.8 mg/dL (8.5-10.1); CHLORIDE 103 mmol/L (98-107); CO2 32 mmol/L (21-32); CREATININE 0.7 mg/dL (0.7-1.3); GLUCOSE,RANDOM 196 mg/dL (74-106); POTASSIUM 4.1 mmol/L (3.5-5.1); SGOT/AST 17 U/L (15-37); SGPT/ALT 26 U/L (12-78); SODIUM 140 mmol/L (136-145); TOT PROT 7.7 g/dl (6.4-8.2)
[2018-05-09 16:04] LABS: HEMATOCRIT 46.8 % (35.4-49); HEMOGLOBIN 15.5 GM/dL (11.7-16.9); MCH 29.5 pg (25.7-33.7); MCHC 33.2 g/dl (32.0-35.9); MEAN PLT VOLUME 10.2 fl (7.5-11.1); PLATELET COUNT 191 K/MM3 (134-434); RBC 5.26 M/mm3 (4.00-5.60); RDW 14.5 % (11.9-15.9); WHITE BLOOD COUNT 5.7 K/mm3 (4.0-10.0)
[2018-05-09] MEDS: MAGNESIUM HYDROX 2400MG/30ML ORAL SUSPENSION 30 ML CUP PO PRN (17:31)
[2018-05-09] MEDS: THIAMINE HCL 100 MG TABLET (FP) PO SCH (22:31)
[2018-05-09] MEDS: MELATONIN 5 MG TABLETS PO PRN (22:32)
[2018-05-10] MEDS: chlordiazePOXIDE HCL 25 MG CAPSULE PO SCH ×2 (05:45→10:26)
[2018-05-10] MEDS: hydrOXYzine PAMOATE 25 MG CAPSULE (FP) PO PRN (05:49)
[2018-05-10] MEDS: PRENATAL VITAMINS W/ FOLIC ACID TABLET (FP) PO SCH (10:25)
[2018-05-10] MEDS: NIFEdipine E.R. 30 MG TABLET (FP) PO SCH (10:25)
--- NOTE | 2018-05-10 12:15 | PN ---
S CIWA - CIWA Score Nausea/Vomitin-No Nausea/No Vomiting Muscle Tremors: 4-Moderate,w/Arms Extend Anxiety: 4-Mod. Anxious/Guarded Agitation: 4-Moderately Restless Paroxysmal Sweats: 1-Minimal Palms Moist Orientation: 0-Oriented Tacttile Disturbances: 0-None Auditory Disturbances: 0-None Visual Disturbances: 0-None Headache: 0-None Present CIWA-Ar Total Score: 13 BHS Progress Note (SOAP) Subjective: ANXIETY,SWEATS,TREMORS,NAUSEA. Objective: 05/10/18 12:15 Vital Signs 05/10/18 05/10/18 06:41 09:18 Temperature 97.1 F L 97.8 F Pulse Rate 64 77 Respiratory 18 18 Rate Blood Pressure 118/76 100/67 Laboratory Tests 05/08/18 05/08/18 05/08/18 10:19 16:19 16:45 WBC RBC Hgb Hct MCV MCH MCHC RDW Plt Count MPV Sodium Potassium Chloride Carbon Dioxide Anion Gap BUN Creatinine Creat Clearance w eGFR POC Glucometer 176 193 Random Glucose Calcium Total Bilirubin AST ALT Alkaline Phosphatase Total Protein Albumin Urine Color Yellow Urine Appearance Turbid Urine pH 5.0 D Ur Specific [place] 1.027 Urine Protein 1+ H Urine Glucose (UA) 1+ H Urine Ketones Negative Urine Blood Negative Urine Nitrite Negative Urine Bilirubin Negative Urine Urobilinogen 2.0 Ur Leukocyte Esterase Negative Urine WBC (Auto) 159 Urine RBC (Auto) None Urine Bacteria Few Urine Mucus Few RPR Titer 05/09/18 05/09/18 05/09/18 05:57 08:50 08:50 WBC 5.7 RBC 5.26 Hgb 15.5 Hct 46.8 MCV 89.0 MCH 29.5 MCHC 33.2 RDW 14.5 Plt Count 191 D MPV 10.2 Sodium 140 Potassium 4.1 Chloride 103 Carbon Dioxide 32 D Anion Gap 5 L BUN 7 Creatinine 0.7 Creat Clearance w eGFR > 60 POC Glucometer 230 Random Glucose 196 H D Calcium 8.8 Total Bilirubin 0.5 AST 17 ALT 26 D Alkaline Phosphatase 80 Total Protein 7.7 Albumin 3.8 Urine Color Urine Appearance Urine pH Ur Specific [place] Urine Protein Urine Glucose (UA) Urine Ketones Urine Blood Urine Nitrite Urine Bilirubin Urine Urobilinogen Ur Leukocyte Esterase Urine WBC (Auto) Urine RBC (Auto) Urine Bacteria Urine Mucus RPR Titer 05/09/18 05/09/18 05/10/18 08:50 16:21 05:47 WBC RBC Hgb Hct MCV MCH MCHC RDW Plt Count MPV Sodium Potassium Chloride Carbon Dioxide Anion Gap BUN Creatinine Creat Clearance w eGFR POC Glucometer 191 215 Random Glucose Calcium Total Bilirubin AST ALT Alkaline Phosphatase Total Protein Albumin Urine Color Urine Appearance Urine pH Ur Specific [place] Urine Protein Urine Glucose (UA) Urine Ketones Urine Blood Urine Nitrite Urine Bilirubin Urine Urobilinogen Ur Leukocyte Esterase Urine WBC (Auto) Urine RBC (Auto) Urine Bacteria Urine Mucus RPR Titer Nonreactive Assessment: 05/10/18 12:15 WITHDRAWAL SX Plan: CONTINUE DETOX ZOFRAN PRN DIRECTED.
[2018-05-10] MEDS: chlordiazePOXIDE 5 MG CAPSULE PO SCH ×2 (16:52→22:04)
[2018-05-10] MEDS: THIAMINE HCL 100 MG TABLET (FP) PO SCH (22:04)
[2018-05-10] MEDS: MELATONIN 5 MG TABLETS PO PRN (22:05)
[2018-05-11] MEDS: chlordiazePOXIDE 5 MG CAPSULE PO SCH ×2 (06:29→10:18)
[2018-05-11] MEDS: MAGNESIUM HYDROX 2400MG/30ML ORAL SUSPENSION 30 ML CUP PO PRN (06:31)
[2018-05-11] MEDS: PRENATAL VITAMINS W/ FOLIC ACID TABLET (FP) PO SCH (10:18)
[2018-05-11] MEDS: NIFEdipine E.R. 30 MG TABLET (FP) PO SCH (10:18)
--- NOTE | 2018-05-11 16:18 | PN ---
[facility] Progress Note (SOAP) Subjective: Tremors, Anxious, Constipation. Objective: PATIENT A & O X 3, OBSERVED AMBULATING ON UNIT. NO ACUTE DISTRESS. 05/11/18 16:15 Vital Signs Temperature 96.9 F L 05/11/18 15:10 Pulse Rate 74 05/11/18 15:10 Respiratory Rate 20 05/11/18 15:10 Blood Pressure 128/85 05/11/18 15:10 O2 Sat by Pulse Oximetry (%) Laboratory Tests 05/08/18 05/08/18 05/08/18 10:19 16:19 16:45 WBC RBC Hgb Hct MCV MCH MCHC RDW Plt Count MPV Sodium Potassium Chloride Carbon Dioxide Anion Gap BUN Creatinine Creat Clearance w eGFR POC Glucometer 176 193 Random Glucose Calcium Total Bilirubin AST ALT Alkaline Phosphatase Total Protein Albumin Urine Color Yellow Urine Appearance Turbid Urine pH 5.0 D Ur Specific [place] 1.027 Urine Protein 1+ H Urine Glucose (UA) 1+ H Urine Ketones Negative Urine Blood Negative Urine Nitrite Negative Urine Bilirubin Negative Urine Urobilinogen 2.0 Ur Leukocyte Esterase Negative Urine WBC (Auto) 159 Urine RBC (Auto) None Urine Bacteria Few Urine Mucus Few RPR Titer 05/09/18 05/09/18 05/09/18 05:57 08:50 08:50 WBC 5.7 RBC 5.26 Hgb 15.5 Hct 46.8 MCV 89.0 MCH 29.5 MCHC 33.2 RDW 14.5 Plt Count 191 D MPV 10.2 Sodium 140 Potassium 4.1 Chloride 103 Carbon Dioxide 32 D Anion Gap 5 L BUN 7 Creatinine 0.7 Creat Clearance w eGFR > 60 POC Glucometer 230 Random Glucose 196 H D Calcium 8.8 Total Bilirubin 0.5 AST 17 ALT 26 D Alkaline Phosphatase 80 Total Protein 7.7 Albumin 3.8 Urine Color Urine Appearance Urine pH Ur Specific [place] Urine Protein Urine Glucose (UA) Urine Ketones Urine Blood Urine Nitrite Urine Bilirubin Urine Urobilinogen Ur Leukocyte Esterase Urine WBC (Auto) Urine RBC (Auto) Urine Bacteria Urine Mucus RPR Titer 05/09/18 05/09/18 05/10/18 08:50 16:21 05:47 WBC RBC Hgb Hct MCV MCH MCHC RDW Plt Count MPV Sodium Potassium Chloride Carbon Dioxide Anion Gap BUN Creatinine Creat Clearance w eGFR POC Glucometer 191 215 Random Glucose Calcium Total Bilirubin AST ALT Alkaline Phosphatase Total Protein Albumin Urine Color Urine Appearance Urine pH Ur Specific [place] Urine Protein Urine Glucose (UA) Urine Ketones Urine Blood Urine Nitrite Urine Bilirubin Urine Urobilinogen Ur Leukocyte Esterase Urine WBC (Auto) Urine RBC (Auto) Urine Bacteria Urine Mucus RPR Titer Nonreactive 05/11/18 06:29 WBC RBC Hgb Hct MCV MCH MCHC RDW Plt Count MPV Sodium Potassium Chloride Carbon Dioxide Anion Gap BUN Creatinine Creat Clearance w eGFR POC Glucometer 165 Random Glucose Calcium Total Bilirubin AST ALT Alkaline Phosphatase Total Protein Albumin Urine Color Urine Appearance Urine pH Ur Specific [place] Urine Protein Urine Glucose (UA) Urine Ketones Urine Blood Urine Nitrite Urine Bilirubin Urine Urobilinogen Ur Leukocyte Esterase Urine WBC (Auto) Urine RBC (Auto) Urine Bacteria Urine Mucus RPR Titer LABS NOTED. Assessment: 05/11/18 16:16 WITHDRAWAL SYMPTOMS. Plan: CONTINUE DETOX. [place] FOR CONSTIPATION (PATIENT REPORTS MINIMAL EFFECT FROM MOM). INCREASE DAILY PO FLUID INTAKE.
[2018-05-11] MEDS: chlordiazePOXIDE HCL 10 MG CAPSULE PO SCH ×2 (17:33→22:39)
[2018-05-11] MEDS: MELATONIN 5 MG TABLETS PO PRN (22:39)
[2018-05-11] MEDS: THIAMINE HCL 100 MG TABLET (FP) PO SCH (22:39)
[2018-05-12] MEDS: chlordiazePOXIDE HCL 10 MG CAPSULE PO SCH ×2 (05:43→10:39)
[2018-05-12] MEDS: PRENATAL VITAMINS W/ FOLIC ACID TABLET (FP) PO SCH (10:28)
[2018-05-12] MEDS: hydrOXYzine PAMOATE 25 MG CAPSULE (FP) PO PRN (10:28)
[2018-05-12] MEDS: NIFEdipine E.R. 30 MG TABLET (FP) PO SCH (10:28)
[2018-05-12] MEDS ORDERED: P-EPHED 60MG/TRIPROLIDI 2.5MG TABLET PO PRN (11:19)
[2018-05-12] MEDS ORDERED: MAG HYDROX/AL HYDROX/SIMETH 30 ML UNIT-DOSE CUP PO PRN (11:19)
[2018-05-12] MEDS ORDERED: IBUPROFEN 400 MG TABLET (FP) PO PRN (11:19)
[2018-05-12] MEDS ORDERED: MAGNESIUM HYDROX 2400MG/30ML ORAL SUSPENSION 30 ML CUP PO PRN (11:19)
[2018-05-12] MEDS ORDERED: ACETAMINOPHEN 325 MG TABLET (FP) PO PRN (11:19)
[2018-05-12] MEDS ORDERED: MENTHOL/PHENOL 1 EACH UD MM PRN (11:19)
[2018-05-12] MEDS ORDERED: hydrOXYzine PAMOATE 25 MG CAPSULE (FP) PO PRN (11:19)
[2018-05-12] MEDS ORDERED: LOPERAMIDE HCL 2 MG CAPSULE PO PRN (11:19)
[2018-05-12] MEDS ORDERED: guaiFENesin/D-METHORPHAN HB 10 ML UNIT-DOSE CUPS PO PRN (11:19)
[2018-05-12] MEDS ORDERED: MAGNESIUM CITRATE 300 ML BOTTLE PO PRN (11:19)
--- NOTE | 2018-05-12 11:21 | PN ---
[facility] Progress Note (SOAP) Subjective: pt without complaints, going to rehab at [facility] today Objective: 05/12/18 11:17 Vital Signs - 24 hr 05/11/18 05/11/18 05/11/18 15:10 18:21 23:48 Temperature 96.9 F L 97 F L 97.6 F Pulse Rate 74 85 72 Respiratory 20 18 18 Rate Blood Pressure 128/85 133/89 137/89 05/12/18 05/12/18 05/12/18 00:30 03:30 06:21 Temperature 97 F L Pulse Rate 73 Respiratory 18 18 18 Rate Blood Pressure 93/62 05/12/18 09:49 Temperature 97.2 F L Pulse Rate 84 Respiratory 20 Rate Blood Pressure 135/84 CBC,CMP WBC 5.7 K/mm3 (4.0-10.0) 05/09/18 08:50 RBC 5.26 M/mm3 (4.00-5.60) 05/09/18 08:50 Hgb 15.5 GM/dL (11.7-16.9) 05/09/18 08:50 Hct 46.8 % (35.4-49) 05/09/18 08:50 MCV 89.0 fl (80-96) 05/09/18 08:50 MCH 29.5 pg (25.7-33.7) 05/09/18 08:50 MCHC 33.2 g/dl (32.0-35.9) 05/09/18 08:50 RDW 14.5 % (11.9-15.9) 05/09/18 08:50 Plt Count 191 K/MM3 (134-434) D 05/09/18 08:50 MPV 10.2 fl (7.5-11.1) 05/09/18 08:50 Sodium 140 mmol/L (136-145) 05/09/18 08:50 Potassium 4.1 mmol/L (3.5-5.1) 05/09/18 08:50 Chloride 103 mmol/L (98-107) 05/09/18 08:50 Carbon Dioxide 32 mmol/L (21-32) D 05/09/18 08:50 Anion Gap 5 (8-16) L 05/09/18 08:50 BUN 7 mg/dL (7-18) 05/09/18 08:50 Creatinine 0.7 mg/dL (0.7-1.3) 05/09/18 08:50 Creat Clearance w eGFR > 60 (>60) 05/09/18 08:50 POC Glucometer 173 UNITS (80-120) 05/12/18 05:46 Random Glucose 196 mg/dL (74-106) H D 05/09/18 08:50 Calcium 8.8 mg/dL (8.5-10.1) 05/09/18 08:50 Total Bilirubin 0.5 mg/dL (0.2-1.0) 05/09/18 08:50 AST 17 U/L (15-37) 05/09/18 08:50 ALT 26 U/L (12-78) D 05/09/18 08:50 Alkaline Phosphatase 80 U/L (45-117) 05/09/18 08:50 Total Protein 7.7 g/dl (6.4-8.2) 05/09/18 08:50 Albumin 3.8 g/dl (3.4-5.0) 05/09/18 08:50 stable VS labs WVL pt alert and oriented, ambulating Assessment: 05/12/18 11:18 alcohol detox HTN Diabetes 05/12/18 11:21 Plan: pt to go to rehab today at [facility]
--- NOTE | 2018-05-12 11:23 | DS ---
[facility] Detox Discharge Summary Admission Date: 05/08/18 Discharge Date: 05/12/18 - History Present History: Alcohol Dependence Additional Comments: pt did well with detox protocol - Physical Exam Results Vital Signs: Vital Signs Temperature 97.2 F L 05/12/18 09:49 Pulse Rate 84 05/12/18 09:49 Respiratory Rate 20 05/12/18 09:49 Blood Pressure 135/84 05/12/18 09:49 O2 Sat by Pulse Oximetry (%) Pertinent Admission Physical Exam Findings: alert and oriented ambulatory - Treatment Hospital Course: Detox Protocol Followed, Rehab Referral Accepted Patient has Accepted a Rehab Referral to: [facility] - Medication Discharge Medications: Ambulatory Orders Nifedipine ER [Procardia XL -] 30 mg PO DAILY 30 Days #30 tab.er.24 01/31/18 metFORMIN HCL [Glucophage -] 750 mg PO BID@0700,1630 #60 tablet 01/31/18
--- NOTE | 2018-05-12 11:25 | HP ---
[facility] Rehab Assess/Revision - Admission History Date of Admission to Rehab: 05/12/18 - Vital signs Vital Signs: Vital Signs Period Temp Pulse Resp BP Sys/Kurtz Pulse Ox Last 24 Hr 96.9 F-97.6 F 72-85 18-20 93-137/62-89 - Findings Detox History & Physical reviewed: Yes Concur with findings: Yes
[2018-05-12] MEDS: THIAMINE HCL 100 MG TABLET (FP) PO SCH (21:13)
[2018-05-12] MEDS: MELATONIN 5 MG TABLETS PO PRN (21:13)
--- NOTE | 2018-05-13 09:10 | HP ---
Psychiatrist Admission - Data Date of interview: 05/13/18 Admission source: [address] [place] [address] Identifying data: This is one of the multiple admissions to [facility] for this 52 yo H single unemployed,domiciled male ,supported by SSI/SSD. Medical History: HTN,DM,Obesity. Psychiatric History: patient reports some anxiety,mood indstability for a while.He was on and of on anxiolytics with some response.No psychiatric OPD care.Patient He denies previos psychiatric admissions.No history of suiciadal attempts. Physical/Sexual Abuse/Trauma History: denies Vital Signs: Vital Signs - 24 hr 05/12/18 05/13/18 05/13/18 09:49 00:30 03:30 Temperature 97.2 F L Pulse Rate 84 Respiratory 20 18 18 Rate Blood Pressure 135/84 05/13/18 07:02 Temperature 97.3 F L Pulse Rate 68 Respiratory 18 Rate Blood Pressure 126/85 Allergies/Adverse Reactions: Allergies Allergy/AdvReac Type Severity Reaction Status Date / Time fish derived Allergy Severe Rash Verified 05/12/18 14:52 shellfish derived Allergy Severe Rash Verified 05/12/18 14:52 No Known Drug Allergies Allergy Verified 05/12/18 14:52 lactose AdvReac Severe Vomiting Verified 05/12/18 14:52 seafood Allergy Severe Rash Uncoded 05/12/18 14:52 WHITE MEAT AdvReac Severe Vomiting Uncoded 05/12/18 14:52 Date of last physical exam: 05/12/18 Concur with the findings of this exam: Yes - Substance Abuse/Tx History Hx Alcohol Use: Yes (reports drinking since 2009,beer a few cases daily) Hx Substance Use: Yes (marijuana since 19 yo on and off,cocaine stopped 5 yo) Substance Use Type: Alcohol, Cocaine, Marijuana Hx Substance Use Treatment: Yes (longest abstinence 3 years) Mental Status Exam - Mental Status Exam Alert and Oriented to: Time, Place, Person Cognitive Function: Grossly Intact Patient Appearance: Well Groomed Mood: Anxious Affect: Mood Congruent Patient Behavior: Appropriate, Cooperative Speech Pattern: Clear Voice Loudness: Normal Thought Process: Goal Oriented Thought Disorder: Not Present Hallucinations: Denies Suicidal Ideation: Denies Homicidal Ideation: Denies Insight/Judgement: Fair Sleep: Fair Appetite: Good Muscle strength/Tone: Normal Gait/Station: Normal Psychiatric Findings - Problem List ([place] 1, 2,3) (1) Cannabis dependence Current Visit: Yes Status: Chronic (2) Nicotine dependence Current Visit: Yes Status: Chronic Qualifiers: Nicotine product type: cigarettes Substance use status: in withdrawal Qualified Code(s): F17.213 - Nicotine dependence, cigarettes, with withdrawal (3) DM Diabetes mellitus type 2 Current Visit: Yes Status: Chronic (4) Essential hypertension Current Visit: Yes Status: Chronic (5) Hypercholesterolemia Current Visit: Yes Status: Chronic Comment: NO MEDS (6) Alcohol dependence Current Visit: Yes Status: Acute (7) Obesity Current Visit: Yes Status: Chronic Qualifiers: Obesity type: unspecified obesity type Obesity classification: adult class 1 (BMI 30 - 34.9) Serious obesity comorbidity presence: unspecified whether serious comorbidity present Body mass index: unspecified BMI Qualified Code( s): E66.9 - Obesity, unspecified (8) Cocaine dependence Current Visit: Yes Status: Chronic (9) Substance induced mood disorder Current Visit: Yes Status: Chronic - Initial Treatment Plan Initial Treatment Plan: Atarax 25 mg po q 6 hrs prn for anxiety.
[2018-05-13] MEDS: PRENATAL VITAMINS W/ FOLIC ACID TABLET (FP) PO SCH (10:17)
[2018-05-13] MEDS: NIFEdipine E.R. 30 MG TABLET (FP) PO SCH (10:17)
[2018-05-13] MEDS: hydrOXYzine HCL 25 MG TABLET (FP) PO PRN ×2 (14:13→21:15)
[2018-05-13] MEDS: THIAMINE HCL 100 MG TABLET (FP) PO SCH (21:14)
[2018-05-14] MEDS: PRENATAL VITAMINS W/ FOLIC ACID TABLET (FP) PO SCH (09:56)
[2018-05-14] MEDS: NIFEdipine E.R. 30 MG TABLET (FP) PO SCH (09:56)
[2018-05-14] MEDS: hydrOXYzine HCL 25 MG TABLET (FP) PO PRN (16:46)
[2018-05-14] MEDS: THIAMINE HCL 100 MG TABLET (FP) PO SCH (21:06)
[2018-05-14] MEDS: MELATONIN 5 MG TABLETS PO PRN (21:06)
[2018-05-15] MEDS: PRENATAL VITAMINS W/ FOLIC ACID TABLET (FP) PO SCH (10:05)
[2018-05-15] MEDS: NIFEdipine E.R. 30 MG TABLET (FP) PO SCH (10:05)
[2018-05-15] MEDS: hydrOXYzine HCL 25 MG TABLET (FP) PO PRN ×2 (10:06→21:17)
[2018-05-15] MEDS: THIAMINE HCL 100 MG TABLET (FP) PO SCH (21:17)
[2018-05-15] MEDS: MELATONIN 5 MG TABLETS PO PRN (21:17)
[2018-05-16] MEDS: hydrOXYzine HCL 25 MG TABLET (FP) PO PRN ×2 (06:44→21:10)
[2018-05-16] MEDS: PRENATAL VITAMINS W/ FOLIC ACID TABLET (FP) PO SCH (09:43)
[2018-05-16] MEDS: NIFEdipine E.R. 30 MG TABLET (FP) PO SCH (09:43)
[2018-05-16] MEDS ORDERED: SIMETHICONE 80 MG TAB.CHEW (FP) PO PRN (13:56)
--- NOTE | 2018-05-16 13:56 | PN ---
[facility] Progress Note Note: Patient 52 yo male with hx of alcohol dependence and DM II. reports intolerance to metformin, increase abdominal discomfort. As per patient prior to admission he was treated for DM by his PCP with Januvia 100 mg QD and was better tolerated. Vital Signs Temperature 98.0 F 05/16/18 06:42 Pulse Rate 84 05/16/18 10:00 Respiratory Rate 18 05/16/18 06:42 Blood Pressure 140/91 05/16/18 10:00 O2 Sat by Pulse Oximetry (%) Laboratory Last Values WBC 5.7 K/mm3 (4.0-10.0) 05/09/18 08:50 RBC 5.26 M/mm3 (4.00-5.60) 05/09/18 08:50 Hgb 15.5 GM/dL (11.7-16.9) 05/09/18 08:50 Hct 46.8 % (35.4-49) 05/09/18 08:50 MCV 89.0 fl (80-96) 05/09/18 08:50 MCH 29.5 pg (25.7-33.7) 05/09/18 08:50 MCHC 33.2 g/dl (32.0-35.9) 05/09/18 08:50 RDW 14.5 % (11.9-15.9) 05/09/18 08:50 Plt Count 191 K/MM3 (134-434) D 05/09/18 08:50 MPV 10.2 fl (7.5-11.1) 05/09/18 08:50 Sodium 140 mmol/L (136-145) 05/09/18 08:50 Potassium 4.1 mmol/L (3.5-5.1) 05/09/18 08:50 Chloride 103 mmol/L (98-107) 05/09/18 08:50 Carbon Dioxide 32 mmol/L (21-32) D 05/09/18 08:50 Anion Gap 5 (8-16) L 05/09/18 08:50 BUN 7 mg/dL (7-18) 05/09/18 08:50 Creatinine 0.7 mg/dL (0.7-1.3) 05/09/18 08:50 Creat Clearance w eGFR > 60 (>60) 05/09/18 08:50 POC Glucometer 237 UNITS (80-120) 05/16/18 06:42 Random Glucose 196 mg/dL (74-106) H D 05/09/18 08:50 Calcium 8.8 mg/dL (8.5-10.1) 05/09/18 08:50 Total Bilirubin 0.5 mg/dL (0.2-1.0) 05/09/18 08:50 AST 17 U/L (15-37) 05/09/18 08:50 ALT 26 U/L (12-78) D 05/09/18 08:50 Alkaline Phosphatase 80 U/L (45-117) 05/09/18 08:50 Total Protein 7.7 g/dl (6.4-8.2) 05/09/18 08:50 Albumin 3.8 g/dl (3.4-5.0) 05/09/18 08:50 Urine Color Yellow 05/08/18 16:45 Urine Appearance Turbid 05/08/18 16:45 Urine pH 5.0 (5.0-8.0) D 05/08/18 16:45 Ur Specific [place] 1.027 (1.001-1.035) 05/08/18 16:45 Urine Protein 1+ (NEGATIVE) H 05/08/18 16:45 Urine Glucose (UA) 1+ (NEGATIVE) H 05/08/18 16:45 Urine Ketones Negative (NEGATIVE) 05/08/18 16:45 Urine Blood Negative (NEGATIVE) 05/08/18 16:45 Urine Nitrite Negative (NEGATIVE) 05/08/18 16:45 Urine Bilirubin Negative (<2.0 mg/dL) 05/08/18 16:45 Urine Urobilinogen 2.0 mg/dL (0.2-1.0) 05/08/18 16:45 Ur Leukocyte Esterase Negative (NEGATIVE) 05/08/18 16:45 Urine WBC (Auto) 159 /hpf (3-5) 05/08/18 16:45 Urine RBC (Auto) None /hpf (0-3) 05/08/18 16:45 Urine Bacteria Few /hpf (NONE SEEN) 05/08/18 16:45 Urine Mucus Few 05/08/18 16:45 RPR Titer Nonreactive (NONREACTIVE) 05/09/18 08:50 A/P AOx3 no distress no adventitious breath sounds BS x4, non-distended Full ROm ambulating in the unit Plan: Metformin 850 mg BID d/c Start Januvia 100mg QD tomorrow Continue BGM BID monitor Continue NCS diet Patient educated on the importance of DM diet adherence and medications and to follow up with PCP upon discharge. Patient verbalize understanding. Continue to monitor
[2018-05-16] MEDS: MELATONIN 5 MG TABLETS PO PRN (21:10)
[2018-05-16] MEDS: THIAMINE HCL 100 MG TABLET (FP) PO SCH (21:14)
[2018-05-17 06:20] VITALS: BP 131/87; PULSE 76; TEMP 97.9
[2018-05-17] MEDS: hydrOXYzine HCL 25 MG TABLET (FP) PO PRN (06:24)
[2018-05-17] MEDS ORDERED: sitaGLIPtin PHOSPHATE 100 MG TABLET (FP) PO SCH (07:00)
--- NOTE | 2018-05-17 09:24 | PN ---
[facility] Progress Note Note: Psychiatric nurse practitioner: Pt. leaving AMA. States "I have muñiz in my benefits card and i need to go supervisor picking crew my medicaid card." Pt. encouraged to stay but is focused on leaving. Pt. denies suicidal and homicidal ideation. Pt. leaving AMA.
[2018-05-17] MEDS: PRENATAL VITAMINS W/ FOLIC ACID TABLET (FP) PO SCH (09:25)
[2018-05-17] MEDS: NIFEdipine E.R. 30 MG TABLET (FP) PO SCH (09:25)
== END 2018-05-17 09:40 | disposition left against medical advice (07) | DRG 894 ==
LOC: YASAS 08:30 → Y3N 11:15 → Y5N 05-12 12:32
PROVIDERS: ADMIT Psychiatry & Neurology Psychiatry; ATTEND Psychiatry & Neurology Psychiatry
PROC: HZ42ZZZ Group Counseling for Substance Abuse Treatment, Cognitive-Behavioral (ICD-10-PCS; principal; 2018-05-08)
PROC: HZ2ZZZZ Detoxification Services for Substance Abuse Treatment (ICD-10-PCS; 2018-05-08)
DX: F10.20 Alcohol dependence, uncomplicated (principal); F14.20 Cocaine dependence, uncomplicated; F12.20 Cannabis dependence, uncomplicated; F17.210 Nicotine dependence, cigarettes, uncomplicated; F19.24 Other psychoactive substance dependence with psychoactive substance-induced mood disorder; F41.9 Anxiety disorder, unspecified; I10 Essential (primary) hypertension; E78.00 Pure hypercholesterolemia, unspecified; E11.9 Type 2 diabetes mellitus without complications; Z79.84 Long term (current) use of oral hypoglycemic drugs; E66.9 Obesity, unspecified; Z68.32 Body mass index [BMI] 32.0-32.9, adult; Z86.19 Personal history of other infectious and parasitic diseases
CPT/HCPCS: 36415; 80053; 81003; 81015; 82962; 85027; 86593; 93005; 93010

== ENCOUNTER 2018-06-19 11:27 | Inpatient (IN) | payer MEDICARE, OTHER ==
[2018-06-19 12:47] VITALS: BMI 32.4
--- NOTE | 2018-06-19 19:47 | HP ---
CIWA Score - CIWA Score Nausea/Vomitin-No Nausea/No Vomiting Muscle Tremors: 2 Anxiety: 3 Agitation: 3 Paroxysmal Sweats: 3 Orientation: 0-Oriented Tacttile Disturbances: 0-None Auditory Disturbances: 0-None Visual Disturbances: 1-Very Mild Sensitivity Headache: 0-None Present CIWA-Ar Total Score: 12 Admission ROS S - HPI Chief Complaint: alcohol withdrawal symptoms Allergies/Adverse Reactions: Allergies Allergy/AdvReac Type Severity Reaction Status Date / Time No Known Drug Allergies Allergy Verified 06/19/18 16:35 lactose AdvReac Severe Vomiting Verified 06/19/18 16:35 seafood Allergy Severe Rash Uncoded 06/19/18 16:35 WHITE MEAT AdvReac Severe Vomiting Uncoded 06/19/18 16:35 History of Present Illness: 52 yo male with hx of alcohol dependence is here seeking alcohol detox. Reports occasional marijuana use once a month. Reports was at [facility] last night for ETOH withdral and dehydration reports was given librium and IV hydration. PMHX: HTN, HDL, DM II, anxiety. Denies suicidal / homicidal ideation. Reports longest period of time three years. Exam Limitations: No Limitations - Ebola screening Have you traveled outside of the country in the last 21 days: No Have you had contact with anyone from an Ebola affected area: No Have you been sick,other than usual withdrawal symptoms: No - Review of Systems Constitutional: Chills, Diaphoresis, Changes in sleep, Other (weight gain 5 LBS) EENT: reports: No Symptoms Reported Respiratory: reports: No Symptoms reported Cardiac: reports: Lightheadedness GI: reports: Constipated (last BM today), Indigestion : reports: No Symptoms Reported Musculoskeletal: reports: No Symptoms Reported Integumentary: reports: No Symptoms Reported Neuro: reports: Dizziness Endocrine: reports: Increased Thirst Hematology: reports: See HPI Psychiatric: reports: Orientated x3, Anxious Other Systems: Reviewed and Negative Patient History - Patient Medical History Hx Anemia: No Hx Asthma: No Hx Chronic Obstructive Pulmonary Disease (COPD): No Hx Cancer: No Hx Cardiac Disorders: No Hx Congestive Heart Failure: No Hx Hypertension: Yes Hx Hypercholesterolemia: Yes (NOT CURRENTLY ON MEDS--NONCOMPLIANT WITH LOVANZA) Hx Pacemaker: No HX Cerebrovascular Accident: No Hx Seizures: No Hx Dementia: No Hx Diabetes: Yes (NIDDM) Hx Gastrointestinal Disorders: No Hx Liver Disease: No Hx Genitourinary Disorders: No Hx Sexually Transmitted Disorders: Yes (gonorrhea at age 19) Hx Renal Disease (ESRD): No Hx Thyroid Disease: No Hx Human Immunodeficiency Virus (HIV): No (NEGATIVE HX) Hx Hepatitis C: No Hx Depression: Yes Hx Suicide Attempt: No Hx Bipolar Disorder: No Hx Schizophrenia: No - Patient Surgical History Past Surgical History: No Hx Neurologic Surgery: No Hx Cataract Extraction: No Hx Cardiac Surgery: No Hx Lung Surgery: No Hx Breast Surgery: No Hx Breast Biopsy: No Hx Abdominal Surgery: No Hx Appendectomy: No Hx Cholecystectomy: No Hx Genitourinary Surgery: No Hx Section: No Hx Orthopedic Surgery: No Hx Hysterectomy: No Anesthesia Reaction: No - PPD History Previous Implant?: Yes Documented Results: Negative w/proof Implanted On Prior [facility] Admission?: Yes Date: 10/18/17 Results: 0 mm PPD to be Administered?: Yes - Smoking Cessation Smoking history: Former smoker Have you smoked in the past 12 months: Yes Aproximately how many cigarettes per day: 3 If you are a former smoker, when did you quit?: 11/2017 Cigars Per Day: 0 Hx Chewing Tobacco Use: No Initiated information on smoking cessation: No 'Breaking Loose' booklet given: 06/19/18 - Substance & Tx. History Hx Alcohol Use: Yes Hx Substance Use: Yes Substance Use Type: Alcohol Hx Substance Use Treatment: Yes ([facility] rehab 05/08/18 -05/17/18) - Substances Abused Alcohol-beer Route: Oral Frequency: Daily Amount used: 2-6 pks. Age of first use: 19 Date of Last Use: 06/19/18 Family Disease History - Family Disease History Family Disease History: Diabetes: Father, Mother Admission Physical Exam B[facility] - Vital Signs Vital Signs: Vital Signs - 24 hr 06/19/18 12:44 Temperature 98.5 F Pulse Rate 91 H Respiratory 18 Rate Blood Pressure 130/80 - Physical General Appearance: Yes: Disheveled, Anxious HEENTM: Yes: Within Normal Limits, EOMI, Hearing grossly Normal, Other ( odentulous) Respiratory: Yes: Chest Non-Tender, Lungs Clear, Normal Breath Sounds, No Respiratory Distress, No Accessory Muscle Use Neck: Yes: Within Normal Limits Breast: Yes: Breast Exam Deferred Cardiology: Yes: Regular Rhythm, Regular Rate Abdominal: Yes: Protuberent Genitourinary: Yes: Within Normal Limits Back: Yes: Normal Inspection Musculoskeletal: Yes: full range of Motion, Gait Steady, Pelvis Stable 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: 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: 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 NML intact, Fully Oriented, Alert, Motor Strength 5/5, Depressed Affect Integumentary: Yes: Normal Color, Warm, Diaphoresis Lymphatic: Yes: Within Normal Limits - Diagnostic (1) Alcohol dependence with uncomplicated withdrawal Current Visit: Yes Status: Acute (2) Cannabis abuse Current Visit: Yes Status: Chronic (3) DM Diabetes mellitus type 2 Current Visit: Yes Status: Chronic (4) Essential hypertension Current Visit: Yes Status: Chronic (5) Hypercholesterolemia Current Visit: Yes Status: Chronic Comment: NO MEDS (6) Nicotine dependence Current Visit: Yes Status: Chronic Qualifiers: Nicotine product type: cigarettes Substance use status: in withdrawal Qualified Code(s): F17.213 - Nicotine dependence, cigarettes, with withdrawal (7) Obesity Current Visit: Yes Status: Chronic Qualifiers: Obesity type: unspecified obesity type Obesity classification: adult class 1 (BMI 30 - 34.9) Serious obesity comorbidity presence: unspecified whether serious comorbidity present Body mass index: unspecified BMI Qualified Code( s): E66.9 - Obesity, unspecified Cleared for Admission [facility] - Detox or Rehab [facility] Level of Care: Medically Managed Detox Regimen/Protocol: Librium [facility] Breath Alcohol Content Breath Alcohol Content: 0 Urine Drug Screen - Results Drug Screen Negative: No Urine Drug Screen Results: THC-Marijuana, BZO-Benzodiazepines
[2018-06-19] MEDS ORDERED: MAGNESIUM HYDROX 2400MG/30ML ORAL SUSPENSION 30 ML CUP PO PRN (19:54)
[2018-06-19] MEDS ORDERED: MENTHOL/PHENOL 1 EACH UD MM PRN (19:54)
[2018-06-19] MEDS ORDERED: chlordiazePOXIDE HCL 25 MG CAPSULE PO PRN (19:54)
[2018-06-19] MEDS ORDERED: LOPERAMIDE HCL 2 MG CAPSULE PO PRN (19:54)
[2018-06-19] MEDS ORDERED: MAGNESIUM CITRATE 300 ML BOTTLE PO PRN (19:54)
[2018-06-19] MEDS ORDERED: MAG HYDROX/AL HYDROX/SIMETH 30 ML UNIT-DOSE CUP PO PRN (19:54)
[2018-06-19] MEDS ORDERED: IBUPROFEN 400 MG TABLET (FP) PO PRN (19:54)
[2018-06-19] MEDS ORDERED: guaiFENesin/D-METHORPHAN HB 10 ML UNIT-DOSE CUPS PO PRN (19:54)
[2018-06-19] MEDS ORDERED: P-EPHED 60MG/TRIPROLIDI 2.5MG TABLET PO PRN (19:54)
[2018-06-19] MEDS ORDERED: hydrOXYzine PAMOATE 50 MG CAPSULE (FP) PO PRN (20:00)
[2018-06-19] MEDS ORDERED: chlordiazePOXIDE HCL 25 MG CAPSULE PO ONE (20:00)
[2018-06-19] MEDS ORDERED: MELATONIN 5 MG TABLETS PO PRN (22:00)
[2018-06-19] MEDS: chlordiazePOXIDE HCL 25 MG CAPSULE PO SCH (22:21)
[2018-06-19] MEDS: THIAMINE HCL 100 MG TABLET (FP) PO SCH (22:21)
[2018-06-19 23:01] LABS: URINE APPEARANCE CLEAR; URINE BILIRUBIN NEGATIVE (<2.0 mg/dL); URINE COLOR LTYELLOW; URINE GLUCOSE (UA) 3+ (NEGATIVE); URINE KETONE NEGATIVE (NEGATIVE); URINE LEUK ESTERASE NEGATIVE (NEGATIVE); URINE NITRITE NEGATIVE (NEGATIVE); URINE PROTEIN NEGATIVE (NEGATIVE); URINE UROBILINOGEN NEGATIVE mg/dL (0.2-1.0)
[2018-06-20] MEDS: chlordiazePOXIDE HCL 25 MG CAPSULE PO SCH ×4 (05:20→22:18)
[2018-06-20] MEDS: sitaGLIPtin PHOSPHATE 100 MG TABLET (FP) PO SCH (08:00)
[2018-06-20 09:33] LABS: HEMOGLOBIN 14.2 GM/dL (11.7-16.9); MCH 30.5 pg (25.7-33.7); MCHC 34.7 g/dl (32.0-35.9); MEAN CELL VOLUME 87.9 fl (80-96); MEAN PLT VOLUME 9.7 fl (7.5-11.1); PLATELET COUNT 155 K/MM3 (134-434); RBC 4.66 M/mm3 (4.00-5.60); RDW 13.6 % (11.9-15.9); WHITE BLOOD COUNT 5.1 K/mm3 (4.0-10.0)
[2018-06-20 09:49] LABS: CHLORIDE 105 mmol/L (98-107); POTASSIUM 4.2 mmol/L (3.5-5.1); SODIUM 143 mmol/L (136-145)
[2018-06-20 10:00] LABS: ALBUMIN 3.7 g/dl (3.4-5.0); ALK PHOS 64 U/L (45-117); ANION GAP 10 (8-16); BILIRUBIN,TOTAL 0.4 mg/dL (0.2-1.0); BLOOD UREA NITROGEN 12 mg/dL (7-18); CALCIUM 8.7 mg/dL (8.5-10.1); CO2 28 mmol/L (21-32); CREATININE 0.8 mg/dL (0.7-1.3); GLUCOSE,RANDOM 261 mg/dL (74-106); SGOT/AST 15 U/L (15-37); SGPT/ALT 27 U/L (12-78); TOT PROT 6.8 g/dl (6.4-8.2)
--- NOTE | 2018-06-20 10:02 | EKG ---
Test Reason : Blood Pressure : / mmHG Vent. Rate : 070 BPM Atrial Rate : 070 BPM P-R Int : 144 ms QRS Dur : 090 ms QT Int : 376 ms P-R-T Axes : 061 -05 -03 degrees QTc Int : 406 ms NORMAL SINUS RHYTHM NORMAL ECG WHEN COMPARED WITH ECG OF 08-MAY-2018 11:39, NO SIGNIFICANT CHANGE WAS FOUND Confirmed by ERIC LAND MD ([id number]) on 06/20/2018 10:02:00 AM Referred By: Confirmed By:ERIC LAND MD
[2018-06-20] MEDS: PRENATAL VITAMINS W/ FOLIC ACID TABLET (FP) PO SCH (10:10)
--- NOTE | 2018-06-20 12:46 | CONSULT ---
[facility] Psychiatric Consult - Data Date of interview: 06/20/18 Admission source: [facility] Identifying data: Patient is a 52 year old male, , without kids, domiciled (SRO), and is supported by [facility]. This is one of multiple admissions for patient. Pt. admitted to for alcohol dependence. Substance Abuse History: - Smoking Cessation. Smoking history: Former smoker. Have you smoked in the past 12 months: Yes. Aproximately how many cigarettes per day: 3. If you are a former smoker, when did you quit?: 11/2017. Cigars Per Day: 0. Hx Chewing Tobacco Use: No. Initiated information on smoking cessation: No. 'Breaking Loose' booklet given: 06/19/18. - Substance & Tx. History. Hx Alcohol Use: Yes. Hx Substance Use: Yes. Substance Use Type: Alcohol. Hx Substance Use Treatment: Yes ([facility] rehab 05/08/18 -05/17/18). - Substances Abused. Alcohol-beer. Route: Oral. Frequency: Daily. Amount used: 2-6 pks. Age of first use: 19. Date of Last Use: 06/19/18 Medical History: hypertension, hypercholestermia, diabetes Psychiatric History: Patient seen by sports writer in May of 2018. Patient's first encounter with a psychiatrist was in 2013 at [facility] ambulatory clinic. Pt. was diagnosed with anxiety and started on buspar. Pt. d/c buspar after c/o dizziness and increase hunger. Pt. was seeing a psychiatrist at [facility] mental health clinic 10 months ago but no longer receives psychiatric outpatient treatment from that location. Pt states he was was only prescribed vistaril for anxiety. Pt attended his intake appointment at [facility] OPD clinic on 01/22/18 but was seen by a medical provider instead of a psychiatrist. Currently patient does not have an OPD. Pt reports a diagnosis of anxiety disorder. Pt. denies h/o psychiatric hospitalizations and suicide attempt. Pt. currently denies suicidal and homicidal ideation. Physical/Sexual Abuse/Trauma History: denies. Mental Status Exam - Mental Status Exam Alert and Oriented to: Time, Place, Person Cognitive Function: Good Patient Appearance: Well Groomed Mood: Hopeful Affect: Appropriate, Mood Congruent Patient Behavior: Appropriate, Cooperative Speech Pattern: Clear, Appropriate Voice Loudness: Normal Thought Process: Intact, Goal Oriented Thought Disorder: Not Present Hallucinations: Denies Suicidal Ideation: Denies Homicidal Ideation: Denies Insight/Judgement: Poor Sleep: Fair Appetite: Fair Muscle strength/Tone: Normal Gait/Station: Normal Psychiatric Findings - Problem List ([place] 1, 2,3) (1) Alcohol dependence with uncomplicated withdrawal Current Visit: Yes Status: Acute (2) Nicotine dependence Current Visit: Yes Status: Chronic Qualifiers: Nicotine product type: cigarettes Substance use status: in withdrawal Qualified Code(s): F17.213 - Nicotine dependence, cigarettes, with withdrawal (3) Anxiety disorder Current Visit: Yes Status: Chronic Qualifiers: Anxiety disorder type: unspecified anxiety disorder Qualified Code(s): F41.9 - Anxiety disorder, unspecified Comment: History. - Initial Treatment Plan Initial Treatment Plan: Psychoeducation provided. Detoxification in progress. Vistaril 50mg q4h ordered by PAYER SPECIALIST (Pt. informed). Observation
[2018-06-20] MEDS: NIFEdipine E.R. 30 MG TABLET (FP) PO SCH (12:54)
--- NOTE | 2018-06-20 14:41 | PN ---
S CIWA - CIWA Score Nausea/Vomitin-No Nausea/No Vomiting Muscle Tremors: None Anxiety: 4-Mod. Anxious/Guarded Agitation: 2 Paroxysmal Sweats: 3 Orientation: 0-Oriented Tacttile Disturbances: 2-Mild Itch/Numbness/Burn Auditory Disturbances: 1-Very Mild Visual Disturbances: 2-Mild Sensitivity Headache: 3-Moderate CIWA-Ar Total Score: 17 BHS Progress Note (SOAP) Subjective: Sweating, H/A, H/A, Fatigue. Objective: PATIENT A & O X 3. NO ACUTE DISTRESS. 06/20/18 14:40 Vital Signs Temperature 97.8 F 06/20/18 13:35 Pulse Rate 71 06/20/18 13:35 Respiratory Rate 18 06/20/18 13:35 Blood Pressure 126/79 06/20/18 13:35 O2 Sat by Pulse Oximetry (%) Laboratory Tests 06/19/18 06/19/18 06/19/18 16:49 20:34 22:00 WBC RBC Hgb Hct MCV MCH MCHC RDW Plt Count MPV Sodium Potassium Chloride Carbon Dioxide Anion Gap BUN Creatinine Creat Clearance w eGFR POC Glucometer 359 287 Random Glucose Calcium Total Bilirubin AST ALT Alkaline Phosphatase Total Protein Albumin Urine Color Ltyellow Urine Appearance Clear Urine pH 5.0 Ur Specific [place] 1.030 Urine Protein Negative Urine Glucose (UA) 3+ H Urine Ketones Negative Urine Blood Negative Urine Nitrite Negative Urine Bilirubin Negative Urine Urobilinogen Negative Ur Leukocyte Esterase Negative RPR Titer HIV 1&2 Antibody Screen HIV P24 Antigen 06/20/18 06/20/18 06/20/18 05:19 07:30 07:30 WBC 5.1 RBC 4.66 Hgb 14.2 Hct 41.0 MCV 87.9 MCH 30.5 MCHC 34.7 RDW 13.6 Plt Count 155 MPV 9.7 Sodium Potassium Chloride Carbon Dioxide Anion Gap BUN Creatinine Creat Clearance w eGFR POC Glucometer 269 Random Glucose Calcium Total Bilirubin AST ALT Alkaline Phosphatase Total Protein Albumin Urine Color Urine Appearance Urine pH Ur Specific [place] Urine Protein Urine Glucose (UA) Urine Ketones Urine Blood Urine Nitrite Urine Bilirubin Urine Urobilinogen Ur Leukocyte Esterase RPR Titer HIV 1&2 Antibody Screen Negative HIV P24 Antigen Negative 06/20/18 06/20/18 06/20/18 07:30 07:30 10:59 WBC RBC Hgb Hct MCV MCH MCHC RDW Plt Count MPV Sodium 143 Potassium 4.2 Chloride 105 Carbon Dioxide 28 Anion Gap 10 BUN 12 Creatinine 0.8 Creat Clearance w eGFR > 60 POC Glucometer 234 Random Glucose 261 H D Calcium 8.7 Total Bilirubin 0.4 AST 15 ALT 27 Alkaline Phosphatase 64 Total Protein 6.8 Albumin 3.7 Urine Color Urine Appearance Urine pH Ur Specific [place] Urine Protein Urine Glucose (UA) Urine Ketones Urine Blood Urine Nitrite Urine Bilirubin Urine Urobilinogen Ur Leukocyte Esterase RPR Titer Nonreactive HIV 1&2 Antibody Screen HIV P24 Antigen LABS NOTED. Assessment: 06/20/18 14:40 WITHDRAWAL SYMPTOMS. Plan: CONTINUE DETOX. INCREASE DAILY PO FLUID INTAKE.
[2018-06-20] MEDS ORDERED: metFORMIN HCL 500 MG TABLET (FP) PO SCH (16:30)
--- NOTE | 2018-06-20 16:36 | PN ---
[facility] Progress Note Note: PATIENT REPORTS THAT HE HAS TAKEN METFORMIN THE RECENT PAST FOR TREATMENT OF TYPE II DM (ALTHOUGH HE HAS BEEN NON-COMPLIANT). METFORMIN, 500 MG PO DAILY @ 1630 ORDERED (PATIENT CURRENTLY TAKING JANUVIA @ 0700). WILL MONITOR RESPONSE BEFORE MODIFYING DOSE OF METFORMIN. Johnathan HINOJOSA NP
[2018-06-20] MEDS: THIAMINE HCL 100 MG TABLET (FP) PO SCH (22:18)
[2018-06-20] MEDS: ACETAMINOPHEN 325 MG TABLET (FP) PO PRN (22:19)
[2018-06-21] MEDS: chlordiazePOXIDE HCL 25 MG CAPSULE PO SCH ×3 (05:19→17:49)
[2018-06-21] MEDS: metFORMIN HCL 500 MG TABLET (FP) PO SCH ×2 (08:12→17:30)
[2018-06-21] MEDS: sitaGLIPtin PHOSPHATE 100 MG TABLET (FP) PO SCH (08:12)
[2018-06-21] MEDS: PRENATAL VITAMINS W/ FOLIC ACID TABLET (FP) PO SCH (10:12)
[2018-06-21] MEDS: ACETAMINOPHEN 325 MG TABLET (FP) PO PRN (10:13)
[2018-06-21] MEDS ORDERED: INSULIN REGULAR HUMAN 100 UNITS/ML *VIAL SQ ONE (11:38)
--- NOTE | 2018-06-21 11:44 | PN ---
[facility] CIWA - CIWA Score Nausea/Vomitin-No Nausea/No Vomiting Muscle Tremors: None Anxiety: 3 Agitation: 3 Paroxysmal Sweats: 3 Orientation: 0-Oriented Tacttile Disturbances: 2-Mild Itch/Numbness/Burn Auditory Disturbances: 0-None Visual Disturbances: 2-Mild Sensitivity Headache: 0-None Present CIWA-Ar Total Score: 13 S Progress Note (SOAP) Subjective: Fatigue, Sweating, Interrupted Sleep. Objective: PATIENT A & O X 3, OBSERVED AMBULATING ON UNIT. NO ACUTE DISTRESS. 06/21/18 11:41 Vital Signs Temperature 97 F L 06/21/18 09:19 Pulse Rate 71 06/21/18 09:19 Respiratory Rate 18 06/21/18 09:19 Blood Pressure 101/65 06/21/18 09:19 O2 Sat by Pulse Oximetry (%) Laboratory Tests 06/19/18 06/19/18 06/19/18 16:49 20:34 22:00 WBC RBC Hgb Hct MCV MCH MCHC RDW Plt Count MPV Sodium Potassium Chloride Carbon Dioxide Anion Gap BUN Creatinine Creat Clearance w eGFR POC Glucometer 359 287 Random Glucose Calcium Total Bilirubin AST ALT Alkaline Phosphatase Total Protein Albumin Urine Color Ltyellow Urine Appearance Clear Urine pH 5.0 Ur Specific [place] 1.030 Urine Protein Negative Urine Glucose (UA) 3+ H Urine Ketones Negative Urine Blood Negative Urine Nitrite Negative Urine Bilirubin Negative Urine Urobilinogen Negative Ur Leukocyte Esterase Negative RPR Titer HIV 1&2 Antibody Screen HIV P24 Antigen 06/20/18 06/20/18 06/20/18 05:19 07:30 07:30 WBC 5.1 RBC 4.66 Hgb 14.2 Hct 41.0 MCV 87.9 MCH 30.5 MCHC 34.7 RDW 13.6 Plt Count 155 MPV 9.7 Sodium Potassium Chloride Carbon Dioxide Anion Gap BUN Creatinine Creat Clearance w eGFR POC Glucometer 269 Random Glucose Calcium Total Bilirubin AST ALT Alkaline Phosphatase Total Protein Albumin Urine Color Urine Appearance Urine pH Ur Specific [place] Urine Protein Urine Glucose (UA) Urine Ketones Urine Blood Urine Nitrite Urine Bilirubin Urine Urobilinogen Ur Leukocyte Esterase RPR Titer HIV 1&2 Antibody Screen Negative HIV P24 Antigen Negative 06/20/18 06/20/18 06/20/18 07:30 07:30 10:59 WBC RBC Hgb Hct MCV MCH MCHC RDW Plt Count MPV Sodium 143 Potassium 4.2 Chloride 105 Carbon Dioxide 28 Anion Gap 10 BUN 12 Creatinine 0.8 Creat Clearance w eGFR > 60 POC Glucometer 234 Random Glucose 261 H D Calcium 8.7 Total Bilirubin 0.4 AST 15 ALT 27 Alkaline Phosphatase 64 Total Protein 6.8 Albumin 3.7 Urine Color Urine Appearance Urine pH Ur Specific [place] Urine Protein Urine Glucose (UA) Urine Ketones Urine Blood Urine Nitrite Urine Bilirubin Urine Urobilinogen Ur Leukocyte Esterase RPR Titer Nonreactive HIV 1&2 Antibody Screen HIV P24 Antigen 06/20/18 06/21/18 06/21/18 16:21 05:17 11:12 WBC RBC Hgb Hct MCV MCH MCHC RDW Plt Count MPV Sodium Potassium Chloride Carbon Dioxide Anion Gap BUN Creatinine Creat Clearance w eGFR POC Glucometer 261 370 367 Random Glucose Calcium Total Bilirubin AST ALT Alkaline Phosphatase Total Protein Albumin Urine Color Urine Appearance Urine pH Ur Specific [place] Urine Protein Urine Glucose (UA) Urine Ketones Urine Blood Urine Nitrite Urine Bilirubin Urine Urobilinogen Ur Leukocyte Esterase RPR Titer HIV 1&2 Antibody Screen HIV P24 Antigen LABS NOTED. Assessment: 06/21/18 11:41 WITHDRAWAL SYMPTOMS. Plan: CONTINUE DETOX. INSULIN SLIDING SCALE STARTED DUE TO PERSISTENTLY ELEVATED BGM'S. PATIENT ADVISED TO FOLLOW-UP WITH [employer]ERCIAL [employer] DRIVER DR. ROJO ([facility]) AFTER DISCHARGE FROM DETOX FOR MEDICAL ASSESSMENT AND FOR HISTORY OF DM. PATIENT VERBALIZED UNDERSTANDING OF RECOMMENDATION.
[2018-06-21] MEDS ORDERED: INSULIN (NOVOLOG) ASPART 100 UNITS/ML 10ML VIAL SQ ONE (12:10)
[2018-06-21] MEDS: NIFEdipine E.R. 30 MG TABLET (FP) PO SCH (12:53)
[2018-06-21] MEDS ORDERED: INSULIN (NOVOLOG) ASPART 100 UNITS/ML 10ML VIAL ONE (16:56)
[2018-06-21] MEDS: INSULIN SLIDING SCALE (NOVOLOG) 1 VIAL SQ SCH (17:47)
[2018-06-21] MEDS: THIAMINE HCL 100 MG TABLET (FP) PO SCH (22:26)
[2018-06-21] MEDS: chlordiazePOXIDE 5 MG CAPSULE PO SCH (22:26)
[2018-06-22] MEDS: chlordiazePOXIDE 5 MG CAPSULE PO SCH (06:32)
[2018-06-22] MEDS: metFORMIN HCL 500 MG TABLET (FP) PO SCH (06:42)
[2018-06-22] MEDS: sitaGLIPtin PHOSPHATE 100 MG TABLET (FP) PO SCH (06:42)
[2018-06-22] MEDS: INSULIN SLIDING SCALE (NOVOLOG) 1 VIAL SQ SCH (07:26)
[2018-06-22 09:34] VITALS: BP 147/96; PULSE 84; TEMP 97.3
--- NOTE | 2018-06-22 14:26 | PN ---
BHS Progress Note (SOAP) Subjective: Sweating, Anxious. Objective: PATIENT A & O X 3, OBSERVED AMBULATING ON UNIT. NO ACUTE DISTRESS. 06/22/18 14:26 Vital Signs Temperature 97.3 F L 06/22/18 09:33 Pulse Rate 84 06/22/18 09:33 Respiratory Rate 16 06/22/18 09:33 Blood Pressure 147/96 06/22/18 09:33 O2 Sat by Pulse Oximetry (%) Laboratory Tests 06/19/18 06/19/18 06/19/18 16:49 20:34 22:00 WBC RBC Hgb Hct MCV MCH MCHC RDW Plt Count MPV Sodium Potassium Chloride Carbon Dioxide Anion Gap BUN Creatinine Creat Clearance w eGFR POC Glucometer 359 287 Random Glucose Calcium Total Bilirubin AST ALT Alkaline Phosphatase Total Protein Albumin Urine Color Ltyellow Urine Appearance Clear Urine pH 5.0 Ur Specific [place] 1.030 Urine Protein Negative Urine Glucose (UA) 3+ H Urine Ketones Negative Urine Blood Negative Urine Nitrite Negative Urine Bilirubin Negative Urine Urobilinogen Negative Ur Leukocyte Esterase Negative RPR Titer HIV 1&2 Antibody Screen HIV P24 Antigen 06/20/18 06/20/18 06/20/18 05:19 07:30 07:30 WBC 5.1 RBC 4.66 Hgb 14.2 Hct 41.0 MCV 87.9 MCH 30.5 MCHC 34.7 RDW 13.6 Plt Count 155 MPV 9.7 Sodium Potassium Chloride Carbon Dioxide Anion Gap BUN Creatinine Creat Clearance w eGFR POC Glucometer 269 Random Glucose Calcium Total Bilirubin AST ALT Alkaline Phosphatase Total Protein Albumin Urine Color Urine Appearance Urine pH Ur Specific [place] Urine Protein Urine Glucose (UA) Urine Ketones Urine Blood Urine Nitrite Urine Bilirubin Urine Urobilinogen Ur Leukocyte Esterase RPR Titer HIV 1&2 Antibody Screen Negative HIV P24 Antigen Negative 06/20/18 06/20/18 06/20/18 07:30 07:30 10:59 WBC RBC Hgb Hct MCV MCH MCHC RDW Plt Count MPV Sodium 143 Potassium 4.2 Chloride 105 Carbon Dioxide 28 Anion Gap 10 BUN 12 Creatinine 0.8 Creat Clearance w eGFR > 60 POC Glucometer 234 Random Glucose 261 H D Calcium 8.7 Total Bilirubin 0.4 AST 15 ALT 27 Alkaline Phosphatase 64 Total Protein 6.8 Albumin 3.7 Urine Color Urine Appearance Urine pH Ur Specific [place] Urine Protein Urine Glucose (UA) Urine Ketones Urine Blood Urine Nitrite Urine Bilirubin Urine Urobilinogen Ur Leukocyte Esterase RPR Titer Nonreactive HIV 1&2 Antibody Screen HIV P24 Antigen 06/20/18 06/21/18 06/21/18 16:21 05:17 11:12 WBC RBC Hgb Hct MCV MCH MCHC RDW Plt Count MPV Sodium Potassium Chloride Carbon Dioxide Anion Gap BUN Creatinine Creat Clearance w eGFR POC Glucometer 261 370 367 Random Glucose Calcium Total Bilirubin AST ALT Alkaline Phosphatase Total Protein Albumin Urine Color Urine Appearance Urine pH Ur Specific [place] Urine Protein Urine Glucose (UA) Urine Ketones Urine Blood Urine Nitrite Urine Bilirubin Urine Urobilinogen Ur Leukocyte Esterase RPR Titer HIV 1&2 Antibody Screen HIV P24 Antigen 06/22/18 05:12 WBC RBC Hgb Hct MCV MCH MCHC RDW Plt Count MPV Sodium Potassium Chloride Carbon Dioxide Anion Gap BUN Creatinine Creat Clearance w eGFR POC Glucometer 256 Random Glucose Calcium Total Bilirubin AST ALT Alkaline Phosphatase Total Protein Albumin Urine Color Urine Appearance Urine pH Ur Specific [place] Urine Protein Urine Glucose (UA) Urine Ketones Urine Blood Urine Nitrite Urine Bilirubin Urine Urobilinogen Ur Leukocyte Esterase RPR Titer HIV 1&2 Antibody Screen HIV P24 Antigen LABS NOTED. Assessment: 06/22/18 14:26 WITHDRAWAL SYMPTOMS. Plan: CONTINUE DETOX.
--- NOTE | 2018-06-22 14:31 | DS ---
[facility] Detox Discharge Summary Admission Date: 06/19/18 Discharge Date: 06/22/18 - History Present History: Alcohol Dependence, Cannabis Dependence Additional Comments: PATIENT HAS PERSONAL AFFAIRS TO ATTEND TO AND DOES NOT WISH TO REMAIN TO COMPLETE DETOX REGIMEN. RISKS OF LEAVING DETOX UNIT AGAINST MEDICAL ADVICE AND PRIOR TO COMPLETION OF DETOX REGIMEN EXPLAINED TO PATIENT. PATIENT ADVISED TO GO IMMEDIATELY TO NEAREST ER SHOULD ANY INTOLERABLE DETOX SYMPTOMS DEVELOP AT ANY TIME. PATIENT DECLINED OFFER OF MEDICATION PRESCRIPTION FOR HOME MEDICATION AT TIME IN WHICH HE WAS LEAVING DETOX UNIT, NOTING THAT HE CURRENTLY HAS ADEQUATE SUPPLIES OF ALL PRESCRIBED HOME MEDICATIONS AT HOME. PATIENT LEFT DETOX UNIT IN STABLE MEDICAL CONDITION. Pertinent Past History: NIDDM, Hypercholesterolemia, HTN, Depression, Nicotine Dependence, Anxiety Disorder. - Physical Exam Results Vital Signs: Vital Signs Temperature 97.3 F L 06/22/18 09:33 Pulse Rate 84 06/22/18 09:33 Respiratory Rate 16 06/22/18 09:33 Blood Pressure 147/96 06/22/18 09:33 O2 Sat by Pulse Oximetry (%) Pertinent Admission Physical Exam Findings: WITHDRAWAL SYMPTOMS. Laboratory Tests 06/19/18 06/19/18 06/19/18 16:49 20:34 22:00 WBC RBC Hgb Hct MCV MCH MCHC RDW Plt Count MPV Sodium Potassium Chloride Carbon Dioxide Anion Gap BUN Creatinine Creat Clearance w eGFR POC Glucometer 359 287 Random Glucose Calcium Total Bilirubin AST ALT Alkaline Phosphatase Total Protein Albumin Urine Color Ltyellow Urine Appearance Clear Urine pH 5.0 Ur Specific [place] 1.030 Urine Protein Negative Urine Glucose (UA) 3+ H Urine Ketones Negative Urine Blood Negative Urine Nitrite Negative Urine Bilirubin Negative Urine Urobilinogen Negative Ur Leukocyte Esterase Negative RPR Titer HIV 1&2 Antibody Screen HIV P24 Antigen 06/20/18 06/20/18 06/20/18 05:19 07:30 07:30 WBC 5.1 RBC 4.66 Hgb 14.2 Hct 41.0 MCV 87.9 MCH 30.5 MCHC 34.7 RDW 13.6 Plt Count 155 MPV 9.7 Sodium Potassium Chloride Carbon Dioxide Anion Gap BUN Creatinine Creat Clearance w eGFR POC Glucometer 269 Random Glucose Calcium Total Bilirubin AST ALT Alkaline Phosphatase Total Protein Albumin Urine Color Urine Appearance Urine pH Ur Specific [place] Urine Protein Urine Glucose (UA) Urine Ketones Urine Blood Urine Nitrite Urine Bilirubin Urine Urobilinogen Ur Leukocyte Esterase RPR Titer HIV 1&2 Antibody Screen Negative HIV P24 Antigen Negative 06/20/18 06/20/18 06/20/18 07:30 07:30 10:59 WBC RBC Hgb Hct MCV MCH MCHC RDW Plt Count MPV Sodium 143 Potassium 4.2 Chloride 105 Carbon Dioxide 28 Anion Gap 10 BUN 12 Creatinine 0.8 Creat Clearance w eGFR > 60 POC Glucometer 234 Random Glucose 261 H D Calcium 8.7 Total Bilirubin 0.4 AST 15 ALT 27 Alkaline Phosphatase 64 Total Protein 6.8 Albumin 3.7 Urine Color Urine Appearance Urine pH Ur Specific [place] Urine Protein Urine Glucose (UA) Urine Ketones Urine Blood Urine Nitrite Urine Bilirubin Urine Urobilinogen Ur Leukocyte Esterase RPR Titer Nonreactive HIV 1&2 Antibody Screen HIV P24 Antigen 06/20/18 06/21/18 06/21/18 16:21 05:17 11:12 WBC RBC Hgb Hct MCV MCH MCHC RDW Plt Count MPV Sodium Potassium Chloride Carbon Dioxide Anion Gap BUN Creatinine Creat Clearance w eGFR POC Glucometer 261 370 367 Random Glucose Calcium Total Bilirubin AST ALT Alkaline Phosphatase Total Protein Albumin Urine Color Urine Appearance Urine pH Ur Specific [place] Urine Protein Urine Glucose (UA) Urine Ketones Urine Blood Urine Nitrite Urine Bilirubin Urine Urobilinogen Ur Leukocyte Esterase RPR Titer HIV 1&2 Antibody Screen HIV P24 Antigen 06/22/18 05:12 WBC RBC Hgb Hct MCV MCH MCHC RDW Plt Count MPV Sodium Potassium Chloride Carbon Dioxide Anion Gap BUN Creatinine Creat Clearance w eGFR POC Glucometer 256 Random Glucose Calcium Total Bilirubin AST ALT Alkaline Phosphatase Total Protein Albumin Urine Color Urine Appearance Urine pH Ur Specific [place] Urine Protein Urine Glucose (UA) Urine Ketones Urine Blood Urine Nitrite Urine Bilirubin Urine Urobilinogen Ur Leukocyte Esterase RPR Titer HIV 1&2 Antibody Screen HIV P24 Antigen LABS NOTED. - Treatment Hospital Course: Detoxed Safely - Medication Discharge Medications: Ambulatory Orders Nifedipine ER [Procardia XL -] 30 mg PO DAILY 30 Days #30 tab.er.24 01/31/18 Sitagliptin Phosphate [Januvia -] 100 mg PO DAILY@0700 #30 ud 05/17/18 - Diagnosis (1) Alcohol dependence with uncomplicated withdrawal Status: Acute (2) Cannabis abuse Status: Chronic (3) DM Diabetes mellitus type 2 Status: Chronic (4) Essential hypertension Status: Chronic (5) Hypercholesterolemia Status: Chronic (6) Nicotine dependence Status: Chronic Qualifiers: Nicotine product type: cigarettes Substance use status: in withdrawal Qualified Code(s): F17.213 - Nicotine dependence, cigarettes, with withdrawal (7) Obesity Status: Chronic Qualifiers: Obesity type: unspecified obesity type Obesity classification: adult class 1 (BMI 30 - 34.9) Serious obesity comorbidity presence: unspecified whether serious comorbidity present Body mass index: unspecified BMI Qualified Code( s): E66.9 - Obesity, unspecified (8) Anxiety disorder Status: Chronic Qualifiers: Anxiety disorder type: unspecified anxiety disorder Qualified Code(s): F41.9 - Anxiety disorder, unspecified - AMA Did Patient Leave Against Medical Advice: Yes (PT HAS PERSONAL AFFAIRS AND DOES NOT WISH TO REMAIN TO COMPLETE DETOX.)
[2018-06-22] MEDS ORDERED: chlordiazePOXIDE HCL 10 MG CAPSULE PO SCH (23:00)
== END 2018-06-22 08:55 | disposition left against medical advice (07) | DRG 894 ==
LOC: YASAS 11:27 → Y3N 17:35
PROVIDERS: ADMIT Surgery; ATTEND Surgery
PROC: HZ2ZZZZ Detoxification Services for Substance Abuse Treatment (ICD-10-PCS; principal; 2018-06-19)
DX: F10.230 Alcohol dependence with withdrawal, uncomplicated (principal); F12.10 Cannabis abuse, uncomplicated; F17.213 Nicotine dependence, cigarettes, with withdrawal; F41.9 Anxiety disorder, unspecified; I10 Essential (primary) hypertension; E11.9 Type 2 diabetes mellitus without complications; E78.00 Pure hypercholesterolemia, unspecified; E66.9 Obesity, unspecified; Z68.32 Body mass index [BMI] 32.0-32.9, adult; Z87.438 Personal history of other diseases of male genital organs; Z79.84 Long term (current) use of oral hypoglycemic drugs; Z91.14 Patient's other noncompliance with medication regimen; Z91.013 Allergy to seafood; Z91.011 Allergy to milk products
CPT/HCPCS: 36415; 80053; 81003; 82962; 85027; 86593; 87389; 93005; 93010

== ENCOUNTER 2018-10-08 08:43 | Inpatient (IN) | payer OTHER ==
[2018-10-08 10:10] VITALS: BMI 34.0
--- NOTE | 2018-10-08 11:04 | HP ---
CIWA Score Nausea/Vomitin Muscle Tremors: 2 Anxiety: 2 Agitation: 2 Paroxysmal Sweats: 1-Minimal Palms Moist Orientation: 0-Oriented Tacttile Disturbances: 1-Very Mild Itch/Numbness Auditory Disturbances: 1-Very Mild Visual Disturbances: 0-None Headache: 2-Mild CIWA-Ar Total Score: 13 - Admission Criteria [facility] Guidelines: Admission for Medically Managed Detox: Requires at least one of the followin. CIWA greater than 12 2. Seizures within the past 24 hours 3. Delirium tremens within the past 24 hours 4. Hallucinations within the past 24 hours 5. Acute intervention needed for co occurring medical disorder 6. Acute intervention needed for co occurring psychiatric disorder 7. Severe withdrawal that cannot be handled at a lower level of care (continued vomiting, continued diarrhea, abnormal vital signs) requiring intravenous medication and/or fluids 8. Patient presents the following: CIWA greater than 12 Admission Criteria Met: Admission criteria met Admission ROS S - [facility] Chief Complaint: i need help to stop drinking alcohol and marijuana Allergies/Adverse Reactions: Allergies Allergy/AdvReac Type Severity Reaction Status Date / Time fish derived Allergy Severe Rash Verified 10/08/18 10:51 shellfish derived Allergy Severe Rash Verified 10/08/18 10:51 No Known Drug Allergies Allergy Verified 10/08/18 10:51 lactose AdvReac Severe Vomiting Verified 10/08/18 10:51 seafood Allergy Severe Rash Uncoded 10/08/18 10:51 WHITE MEAT AdvReac Severe Vomiting Uncoded 10/08/18 10:51 History of Present Illness: this 52years old male with alcohol and marijuana dependence,seeking detox, withdrawal symptom,last detox [facility] 06/19/18 to 06/22/18 syncope alcohol related history of hypertension and type 2 dm seen in [place] this morning receiving iv and insulin history of anxiety longest period of sobriety 3 years plan for rehab after detox - Ebola screening Have you traveled outside of the country in the last 21 days: No Have you had contact with anyone from an Ebola affected area: No Have you been sick,other than usual withdrawal symptoms: No Do you have a fever: No - Review of Systems Constitutional: Loss of Appetite, Malaise, Night Sweats, Changes in sleep, Weakness EENT: reports: Nose Congestion Respiratory: reports: No Symptoms reported Cardiac: reports: No Symptoms Reported GI: reports: Nausea, Vomiting, Abdominal cramping : reports: No Symptoms Reported Musculoskeletal: reports: Back Pain, Muscle Pain Integumentary: reports: Dryness Neuro: reports: Headache, Tremors Endocrine: reports: No Symptoms Reported (type 2 dm) Hematology: reports: No Symptoms Reported Patient History - Patient Medical History Hx Anemia: No Hx Asthma: No Hx Chronic Obstructive Pulmonary Disease (COPD): No Hx Cancer: No Hx Cardiac Disorders: No Hx Congestive Heart Failure: No Hx Hypertension: Yes (on med) Hx Hypercholesterolemia: Yes (NOT CURRENTLY ON MEDS--NONCOMPLIANT WITH LOVANZA) Hx Pacemaker: No HX Cerebrovascular Accident: No Hx Seizures: No Hx Dementia: No Hx Diabetes: Yes (NIDDM) Hx Gastrointestinal Disorders: No Hx Liver Disease: No Hx Genitourinary Disorders: No Hx Sexually Transmitted Disorders: Yes (gonorrhea at age 19) Hx Renal Disease (ESRD): No Hx Thyroid Disease: No Hx Human Immunodeficiency Virus (HIV): No (NEGATIVE HX) Hx Hepatitis C: No Hx Depression: No Hx Suicide Attempt: No Hx Bipolar Disorder: No Hx Schizophrenia: No Other Medical History: anxiety,no suicidal,no homicidal - Patient Surgical History Past Surgical History: No Hx Neurologic Surgery: No Hx Cataract Extraction: No Hx Cardiac Surgery: No Hx Lung Surgery: No Hx Breast Surgery: No Hx Breast Biopsy: No Hx Abdominal Surgery: No Hx Appendectomy: No Hx Cholecystectomy: No Hx Genitourinary Surgery: No Hx Section: No Hx Orthopedic Surgery: No Hx Hysterectomy: No Anesthesia Reaction: No - PPD History Previous Implant?: Yes Documented Results: Negative w/o proof Implanted On Prior [facility] Admission?: Yes Date: 10/18/17 Results: 0 mm PPD to be Administered?: No - Smoking Cessation Smoking history: Former smoker Have you smoked in the past 12 months: No Aproximately how many cigarettes per day: 0 If you are a former smoker, when did you quit?: 11/2017 Cigars Per Day: 0 Hx Chewing Tobacco Use: No Initiated information on smoking cessation: Yes 'Breaking Loose' booklet given: 10/08/18 - Substance & Tx. History Hx Alcohol Use: Yes Hx Substance Use: Yes Substance Use Type: Alcohol, Marijuana Hx Substance Use Treatment: Yes ([facility] 06/19/18 to 06/22/18) - Substances Abused Alcohol Route: Oral Frequency: Daily Amount used: 15 beers Age of first use: 19 Date of Last Use: 10/08/18 Marijuana/Hashish Route: Smoking Frequency: Daily Amount used: 6 bags Age of first use: 19 Date of Last Use: 10/07/18 Family Disease History - Family Disease History Family Disease History: Diabetes: Father, Mother Admission Physical Exam [facility] - Vital Signs Vital Signs: Vital Signs - 24 hr 10/08/18 09:58 Temperature 96.5 F L Pulse Rate 79 Respiratory 18 Rate Blood Pressure 152/89 - Physical General Appearance: Yes: Moderate Distress, Tremorous, Irritable, Sweating, Anxious HEENTM: Yes: Normal ENT Inspection, JACKLYN, Pharynx Normal Respiratory: Yes: Lungs Clear, Normal Breath Sounds, No Respiratory Distress Neck: Yes: Within Normal Limits, Supple, Trachea in good position Breast: Yes: Within Normal Limits Cardiology: Yes: Within Normal Limits, Regular Rhythm, Regular Rate, S1, S2 Abdominal: Yes: Within Normal Limits, Normal Bowel Sounds, Non Tender, Flat, Soft Genitourinary: Yes: Within Normal Limits Back: Yes: Muscle Spasm Extremities: Yes: Within Normal Limits, Normal Range of Motion, Tremors 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: Yes: 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 NML intact, Fully Oriented, Alert, Motor Strength 5/5 Integumentary: Yes: Dry Lymphatic: Yes: Within Normal Limits - Diagnostic (1) Alcohol dependence with uncomplicated withdrawal Current Visit: No Status: Acute (2) Cannabis dependence Current Visit: No Status: Chronic (3) DM Diabetes mellitus type 2 Current Visit: No Status: Chronic (4) Essential hypertension Current Visit: No Status: Chronic (5) Hypercholesterolemia Current Visit: No Status: Chronic Comment: NO MEDS (6) Anxiety Current Visit: Yes Status: Acute Cleared for Admission [facility] - Detox or Rehab [facility] Level of Care: Medically Managed Detox Regimen/Protocol: Librium [facility] Breath Alcohol Content Breath Alcohol Content: 0 Urine Drug Screen - Results Urine Drug Screen Results: THC-Marijuana, BZO-Benzodiazepines
[2018-10-08] MEDS ORDERED: chlordiazePOXIDE HCL 25 MG CAPSULE PO PRN (11:10)
[2018-10-08] MEDS ORDERED: ACETAMINOPHEN 325 MG TABLET (FP) PO PRN (11:10)
[2018-10-08] MEDS ORDERED: guaiFENesin/D-METHORPHAN HB 10 ML UNIT-DOSE CUPS PO PRN (11:10)
[2018-10-08] MEDS ORDERED: LOPERAMIDE HCL 2 MG CAPSULE PO PRN (11:10)
[2018-10-08] MEDS ORDERED: MAGNESIUM HYDROX 2400MG/30ML ORAL SUSPENSION 30 ML CUP PO PRN (11:10)
[2018-10-08] MEDS ORDERED: IBUPROFEN 400 MG TABLET (FP) PO PRN (11:10)
[2018-10-08] MEDS ORDERED: MENTHOL/PHENOL 1 EACH UD MM PRN (11:10)
[2018-10-08] MEDS ORDERED: MAG HYDROX/AL HYDROX/SIMETH 30 ML UNIT-DOSE CUP PO PRN (11:10)
[2018-10-08] MEDS ORDERED: P-EPHED 60MG/TRIPROLIDI 2.5MG TABLET PO PRN (11:10)
[2018-10-08] MEDS ORDERED: MAGNESIUM CITRATE 300 ML BOTTLE PO PRN (11:10)
[2018-10-08] MEDS: NIFEdipine E.R. 30 MG TABLET (FP) PO SCH (12:06)
[2018-10-08] MEDS: chlordiazePOXIDE HCL 25 MG CAPSULE PO SCH ×2 (16:54→22:04)
[2018-10-08] MEDS ORDERED: INSULIN (NOVOLOG) ASPART 100 UNITS/ML 10ML VIAL ONE ×2 (16:56→21:19)
[2018-10-08] MEDS: INSULIN (NOVOLOG) ASPART 100 UNITS/ML 10ML VIAL SQ SCH ×2 (16:59→21:24)
[2018-10-08] MEDS: THIAMINE HCL 100 MG TABLET (FP) PO SCH (22:04)
[2018-10-09] MEDS: chlordiazePOXIDE HCL 25 MG CAPSULE PO SCH ×4 (05:40→22:33)
[2018-10-09] MEDS ORDERED: INSULIN (NOVOLOG) ASPART 100 UNITS/ML 10ML VIAL ONE ×3 (05:45→16:48)
[2018-10-09] MEDS: INSULIN (NOVOLOG) ASPART 100 UNITS/ML 10ML VIAL SQ SCH ×4 (06:35→22:33)
[2018-10-09] MEDS: NIFEdipine E.R. 30 MG TABLET (FP) PO SCH (10:14)
[2018-10-09] MEDS: PRENATAL VITAMINS W/ FOLIC ACID TABLET (FP) PO SCH (10:14)
[2018-10-09 10:57] LABS: ALBUMIN 3.8 g/dl (3.4-5.0); ALK PHOS 72 U/L (45-117); ANION GAP 8 MMOL/L (8-16); BILIRUBIN,TOTAL 0.4 mg/dL (0.2-1); BLOOD UREA NITROGEN 9 mg/dL (7-18); CALCIUM 8.4 mg/dL (8.5-10.1); CHLORIDE 106 mmol/L (98-107); CO2 27 mmol/L (21-32); CREATININE 0.8 mg/dL (0.55-1.3); GLUCOSE,RANDOM 253 mg/dL (74-106); POTASSIUM 4.3 mmol/L (3.5-5.1); SGOT/AST 20 U/L (15-37); SGPT/ALT 30 U/L (13-61); SODIUM 141 mmol/L (136-145); TOT PROT 6.9 g/dl (6.4-8.2)
[2018-10-09 11:12] LABS: HEMATOCRIT 41.6 % (35.4-49); HEMOGLOBIN 14.7 GM/dL (11.7-16.9); MCH 30.9 pg (25.7-33.7); MCHC 35.2 g/dl (32.0-35.9); MEAN CELL VOLUME 87.7 fl (80-96); MEAN PLT VOLUME 9.9 fl (7.5-11.1); PLATELET COUNT 200 K/MM3 (134-434); RBC 4.74 M/mm3 (4.00-5.60); WHITE BLOOD COUNT 5.2 K/mm3 (4.0-10.0)
[2018-10-09] MEDS ORDERED: FLU VACCINE QUAD 60 MCG/0.5 ML (MDV 18-19) IM ONE (12:00)
--- NOTE | 2018-10-09 13:22 | PN ---
[facility] CIWA - CIWA Score Nausea/Vomitin-Mild Nausea/No Vomiting Muscle Tremors: 3 Anxiety: 1-Mildly Anxious Agitation: 3 Paroxysmal Sweats: 1-Minimal Palms Moist Orientation: 0-Oriented Tacttile Disturbances: 0-None Auditory Disturbances: 0-None Visual Disturbances: 0-None Headache: 1-Very Mild CIWA-Ar Total Score: 10 S Progress Note (SOAP) Subjective: tremor sweat constipation treated with citroma increase oral fluid + ambulating on [address] way Objective: 10/09/18 13:23 Vital Signs Temperature 97.7 F 10/09/18 09:36 Pulse Rate 81 10/09/18 09:36 Respiratory Rate 18 10/09/18 09:36 Blood Pressure 146/83 10/09/18 09:36 O2 Sat by Pulse Oximetry (%) Laboratory Last Values WBC 5.2 K/mm3 (4.0-10.0) 10/09/18 05:00 RBC 4.74 M/mm3 (4.00-5.60) 10/09/18 05:00 Hgb 14.7 GM/dL (11.7-16.9) 10/09/18 05:00 Hct 41.6 % (35.4-49) 10/09/18 05:00 MCV 87.7 fl (80-96) 10/09/18 05:00 MCH 30.9 pg (25.7-33.7) 10/09/18 05:00 MCHC 35.2 g/dl (32.0-35.9) 10/09/18 05:00 RDW 14.0 % (11.9-15.9) 10/09/18 05:00 Plt Count 200 K/MM3 (134-434) D 10/09/18 05:00 MPV 9.9 fl (7.5-11.1) 10/09/18 05:00 Sodium 141 mmol/L (136-145) 10/09/18 05:00 Potassium 4.3 mmol/L (3.5-5.1) 10/09/18 05:00 Chloride 106 mmol/L (98-107) 10/09/18 05:00 Carbon Dioxide 27 mmol/L (21-32) 10/09/18 05:00 Anion Gap 8 MMOL/L (8-16) 10/09/18 05:00 BUN 9 mg/dL (7-18) 10/09/18 05:00 Creatinine 0.8 mg/dL (0.55-1.3) 10/09/18 05:00 Creat Clearance w eGFR > 60 (>60) 10/09/18 05:00 POC Glucometer 247 UNITS (80-120) 10/09/18 11:01 Random Glucose 253 mg/dL (74-106) H 10/09/18 05:00 Calcium 8.4 mg/dL (8.5-10.1) L 10/09/18 05:00 Total Bilirubin 0.4 mg/dL (0.2-1) 10/09/18 05:00 AST 20 U/L (15-37) 10/09/18 05:00 ALT 30 U/L (13-61) 10/09/18 05:00 Alkaline Phosphatase 72 U/L (45-117) 10/09/18 05:00 Total Protein 6.9 g/dl (6.4-8.2) 10/09/18 05:00 Albumin 3.8 g/dl (3.4-5.0) 10/09/18 05:00 discuss negative consequences of alcohol misuse related to diabetes and hypertension lab noted 10/09/18 13:25 Assessment: 10/09/18 13:26 withdrawal sx Plan: continue detox
[2018-10-09] MEDS: hydrOXYzine PAMOATE 50 MG CAPSULE (FP) PO PRN (13:54)
[2018-10-09] MEDS: THIAMINE HCL 100 MG TABLET (FP) PO SCH (22:33)
[2018-10-09] MEDS: MELATONIN 5 MG TABLETS PO PRN (22:34)
[2018-10-10] MEDS: chlordiazePOXIDE HCL 25 MG CAPSULE PO SCH ×2 (05:31→10:29)
[2018-10-10] MEDS ORDERED: INSULIN (NOVOLOG) ASPART 100 UNITS/ML 10ML VIAL ONE ×3 (07:51→17:02)
[2018-10-10] MEDS: INSULIN (NOVOLOG) ASPART 100 UNITS/ML 10ML VIAL SQ SCH ×4 (07:54→22:06)
[2018-10-10] MEDS: PRENATAL VITAMINS W/ FOLIC ACID TABLET (FP) PO SCH (10:28)
--- NOTE | 2018-10-10 11:18 | PN ---
S CIWA - CIWA Score Nausea/Vomitin-Mild Nausea/No Vomiting Muscle Tremors: 3 Anxiety: 1-Mildly Anxious Agitation: 2 Paroxysmal Sweats: 1-Minimal Palms Moist Orientation: 0-Oriented Tacttile Disturbances: 0-None Auditory Disturbances: 0-None Visual Disturbances: 0-None Headache: 1-Very Mild CIWA-Ar Total Score: 9 BHS Progress Note (SOAP) Subjective: tremor sweat anxiety restlessness Objective: 10/10/18 11:16 Vital Signs Temperature 97.7 F 10/10/18 09:00 Pulse Rate 78 10/10/18 09:00 Respiratory Rate 18 10/10/18 09:00 Blood Pressure 110/56 L 10/10/18 09:00 O2 Sat by Pulse Oximetry (%) Laboratory Last Values WBC 5.2 K/mm3 (4.0-10.0) 10/09/18 05:00 RBC 4.74 M/mm3 (4.00-5.60) 10/09/18 05:00 Hgb 14.7 GM/dL (11.7-16.9) 10/09/18 05:00 Hct 41.6 % (35.4-49) 10/09/18 05:00 MCV 87.7 fl (80-96) 10/09/18 05:00 MCH 30.9 pg (25.7-33.7) 10/09/18 05:00 MCHC 35.2 g/dl (32.0-35.9) 10/09/18 05:00 RDW 14.0 % (11.9-15.9) 10/09/18 05:00 Plt Count 200 K/MM3 (134-434) D 10/09/18 05:00 MPV 9.9 fl (7.5-11.1) 10/09/18 05:00 Sodium 141 mmol/L (136-145) 10/09/18 05:00 Potassium 4.3 mmol/L (3.5-5.1) 10/09/18 05:00 Chloride 106 mmol/L (98-107) 10/09/18 05:00 Carbon Dioxide 27 mmol/L (21-32) 10/09/18 05:00 Anion Gap 8 MMOL/L (8-16) 10/09/18 05:00 BUN 9 mg/dL (7-18) 10/09/18 05:00 Creatinine 0.8 mg/dL (0.55-1.3) 10/09/18 05:00 Creat Clearance w eGFR > 60 (>60) 10/09/18 05:00 POC Glucometer 238 UNITS (80-120) 10/10/18 05:29 Random Glucose 253 mg/dL (74-106) H 10/09/18 05:00 Calcium 8.4 mg/dL (8.5-10.1) L 10/09/18 05:00 Total Bilirubin 0.4 mg/dL (0.2-1) 10/09/18 05:00 AST 20 U/L (15-37) 10/09/18 05:00 ALT 30 U/L (13-61) 10/09/18 05:00 Alkaline Phosphatase 72 U/L (45-117) 10/09/18 05:00 Total Protein 6.9 g/dl (6.4-8.2) 10/09/18 05:00 Albumin 3.8 g/dl (3.4-5.0) 10/09/18 05:00 RPR Titer Nonreactive (NONREACTIVE) 10/09/18 05:00 lab noted Assessment: 10/10/18 11:17 withdrawal sx diabetes Plan: continue detox risks of hyperglycemia
[2018-10-10] MEDS: hydrOXYzine PAMOATE 50 MG CAPSULE (FP) PO PRN (11:29)
[2018-10-10] MEDS ORDERED: LIDOCAINE 5% TOPICAL PATCH TP SCH (11:30)
[2018-10-10] MEDS: NIFEdipine E.R. 30 MG TABLET (FP) PO SCH (15:03)
[2018-10-10] MEDS: chlordiazePOXIDE 5 MG CAPSULE PO SCH ×2 (17:18→22:07)
[2018-10-10] MEDS ORDERED: LIDOCAINE PATCH REMOVAL MC SCH (22:00)
[2018-10-10] MEDS: THIAMINE HCL 100 MG TABLET (FP) PO SCH (22:06)
[2018-10-10] MEDS: MELATONIN 5 MG TABLETS PO PRN (22:07)
[2018-10-11] MEDS: chlordiazePOXIDE 5 MG CAPSULE PO SCH (05:57)
[2018-10-11 06:19] VITALS: BP 116/87; PULSE 76; TEMP 97.9
[2018-10-11] MEDS ORDERED: INSULIN (NOVOLOG) ASPART 100 UNITS/ML 10ML VIAL ONE (06:54)
[2018-10-11] MEDS: INSULIN (NOVOLOG) ASPART 100 UNITS/ML 10ML VIAL SQ SCH (07:03)
--- NOTE | 2018-10-11 09:08 | PN ---
BHS Progress Note (SOAP) Subjective: I'M feeling better, I need to get an early d/c because of work. Objective: 10/11/18 09:08 Vital Signs Temperature 97.9 F 10/11/18 06:00 Pulse Rate 76 10/11/18 06:00 Respiratory Rate 18 10/11/18 06:00 Blood Pressure 116/87 10/11/18 06:00 O2 Sat by Pulse Oximetry (%) Laboratory Tests 10/08/18 10/08/18 10/08/18 11:03 16:36 21:12 WBC RBC Hgb Hct MCV MCH MCHC RDW Plt Count MPV Sodium Potassium Chloride Carbon Dioxide Anion Gap BUN Creatinine Creat Clearance w eGFR POC Glucometer 289 239 225 Random Glucose Calcium Total Bilirubin AST ALT Alkaline Phosphatase Total Protein Albumin RPR Titer 10/09/18 10/09/18 10/09/18 05:00 05:00 05:00 WBC 5.2 RBC 4.74 Hgb 14.7 Hct 41.6 MCV 87.7 MCH 30.9 MCHC 35.2 RDW 14.0 Plt Count 200 D MPV 9.9 Sodium 141 Potassium 4.3 Chloride 106 Carbon Dioxide 27 Anion Gap 8 BUN 9 Creatinine 0.8 Creat Clearance w eGFR > 60 POC Glucometer Random Glucose 253 H Calcium 8.4 L Total Bilirubin 0.4 AST 20 ALT 30 Alkaline Phosphatase 72 Total Protein 6.9 Albumin 3.8 RPR Titer Nonreactive 10/09/18 10/09/18 10/09/18 05:39 11:01 16:46 WBC RBC Hgb Hct MCV MCH MCHC RDW Plt Count MPV Sodium Potassium Chloride Carbon Dioxide Anion Gap BUN Creatinine Creat Clearance w eGFR POC Glucometer 248 247 274 Random Glucose Calcium Total Bilirubin AST ALT Alkaline Phosphatase Total Protein Albumin RPR Titer 10/10/18 10/10/18 10/10/18 05:29 11:14 16:27 WBC RBC Hgb Hct MCV MCH MCHC RDW Plt Count MPV Sodium Potassium Chloride Carbon Dioxide Anion Gap BUN Creatinine Creat Clearance w eGFR POC Glucometer 238 196 245 Random Glucose Calcium Total Bilirubin AST ALT Alkaline Phosphatase Total Protein Albumin RPR Titer 10/11/18 05:56 WBC RBC Hgb Hct MCV MCH MCHC RDW Plt Count MPV Sodium Potassium Chloride Carbon Dioxide Anion Gap BUN Creatinine Creat Clearance w eGFR POC Glucometer 164 Random Glucose Calcium Total Bilirubin AST ALT Alkaline Phosphatase Total Protein Albumin RPR Titer pt aox3 in nad ambulating well Assessment: 10/11/18 09:08 pt 10/11/18 09:09 pt feeling better -states he must be at work today or he will loss his job. Pt appears improve d ; will therefore yolie an early d/c today Plan: cont fluids d/c today to home f/up with out pt program/tx.
--- NOTE | 2018-10-11 09:16 | DS ---
[facility] Detox Discharge Summary Admission Date: 10/08/18 Discharge Date: 10/11/18 - History Present History: Alcohol Dependence, Cannabis Dependence - Physical Exam Results Vital Signs: Vital Signs Temperature 97.9 F 10/11/18 06:00 Pulse Rate 76 10/11/18 06:00 Respiratory Rate 18 10/11/18 06:00 Blood Pressure 116/87 10/11/18 06:00 O2 Sat by Pulse Oximetry (%) - Treatment Hospital Course: Detox Protocol Followed, Detoxed Safely, Responded well, Discharged Condition Good - Medication Discharge Medications: Ambulatory Orders Nifedipine ER [Procardia XL -] 30 mg PO DAILY 30 Days #30 tab.er.24 01/31/18 hydrOXYzine HCL [Atarax -] 50 mg PO HS PRN 10/08/18 metFORMIN HCL [Metformin HCl] 850 mg PO BID 10/08/18 - Diagnosis (1) Anxiety Current Visit: Yes Status: Chronic (2) Alcohol dependence with uncomplicated withdrawal Current Visit: No Status: Chronic (3) Cannabis abuse Current Visit: No Status: Chronic (4) DM Diabetes mellitus type 2 Current Visit: No Status: Chronic (5) Essential hypertension Current Visit: No Status: Chronic (6) Hypercholesterolemia Current Visit: No Status: Chronic (7) Nicotine dependence Current Visit: No Status: Chronic Qualifiers: Nicotine product type: cigarettes Substance use status: in withdrawal Qualified Code(s): F17.213 - Nicotine dependence, cigarettes, with withdrawal - AMA Did Patient Leave Against Medical Advice: No
[2018-10-11] MEDS: PRENATAL VITAMINS W/ FOLIC ACID TABLET (FP) PO SCH (09:25)
[2018-10-11] MEDS: NIFEdipine E.R. 30 MG TABLET (FP) PO SCH (09:25)
[2018-10-11] MEDS ORDERED: chlordiazePOXIDE HCL 10 MG CAPSULE PO SCH (17:00)
== END 2018-10-11 09:45 | disposition home or self-care (01) | DRG 897 ==
LOC: YASAS 08:43 → Y6N 11:18
PROC: HZ2ZZZZ Detoxification Services for Substance Abuse Treatment (ICD-10-PCS; principal; 2018-10-08)
DX: F10.230 Alcohol dependence with withdrawal, uncomplicated (principal); F12.20 Cannabis dependence, uncomplicated; F17.213 Nicotine dependence, cigarettes, with withdrawal; F41.9 Anxiety disorder, unspecified; I10 Essential (primary) hypertension; E11.9 Type 2 diabetes mellitus without complications; E78.00 Pure hypercholesterolemia, unspecified; Z86.19 Personal history of other infectious and parasitic diseases; Z79.84 Long term (current) use of oral hypoglycemic drugs
CPT/HCPCS: 36415; 80053; 82962; 85027; 86593; 90688; G0008

== ENCOUNTER 2018-11-05 11:51 | Inpatient (IN) | payer MEDICARE, OTHER ==
[2018-11-05 13:26] VITALS: BMI 31.6
--- NOTE | 2018-11-05 14:38 | HP ---
CIWA Score Nausea/Vomitin Muscle Tremors: 2 Anxiety: 2 Agitation: 2 Paroxysmal Sweats: 1-Minimal Palms Moist Orientation: 0-Oriented Tacttile Disturbances: 1-Very Mild Itch/Numbness Auditory Disturbances: 0-None Visual Disturbances: 1-Very Mild Sensitivity Headache: 2-Mild CIWA-Ar Total Score: 13 - Admission Criteria OASAS Guidelines: Admission for Medically Managed Detox: Requires at least one of the followin. CIWA greater than 12 2. Seizures within the past 24 hours 3. Delirium tremens within the past 24 hours 4. Hallucinations within the past 24 hours 5. Acute intervention needed for co occurring medical disorder 6. Acute intervention needed for co occurring psychiatric disorder 7. Severe withdrawal that cannot be handled at a lower level of care (continued vomiting, continued diarrhea, abnormal vital signs) requiring intravenous medication and/or fluids 8. Patient presents the following: CIWA greater than 12 Admission Criteria Met: Admission criteria met Admission ROS BHS - HPI Chief Complaint: i need help to stop drinking alcohol and marijuana Allergies/Adverse Reactions: Allergies Allergy/AdvReac Type Severity Reaction Status Date / Time fish derived Allergy Severe Rash Verified 10/08/18 10:51 shellfish derived Allergy Severe Rash Verified 10/08/18 10:51 No Known Drug Allergies Allergy Verified 10/08/18 10:51 lactose AdvReac Severe Vomiting Verified 10/08/18 10:51 seafood Allergy Severe Rash Uncoded 10/08/18 10:51 WHITE MEAT AdvReac Severe Vomiting Uncoded 10/08/18 10:51 History of Present Illness: this 52 years old male with alcohol and marijuana dependence,seeking detox, withdrawal symptom,last detox 10/08/18to 10/11/18 syncope history of hypertension,type 2 dm, multiple admissions in detox but keep relapsing longest period of sobriety 3 years anxiety plan for rehab after detox Exam Limitations: No Limitations - Ebola screening Have you traveled outside of the country in the last 21 days: No (N) Have you had contact with anyone from an Ebola affected area: No Have you been sick,other than usual withdrawal symptoms: No Do you have a fever: No - Review of Systems Constitutional: Diaphoresis, Loss of Appetite, Malaise, Night Sweats, Changes in sleep, Weakness EENT: reports: Nose Congestion Respiratory: reports: No Symptoms reported Cardiac: reports: No Symptoms Reported GI: reports: Nausea, Vomiting, Abdominal cramping : reports: No Symptoms Reported Musculoskeletal: reports: Back Pain, Muscle Pain Integumentary: reports: Dryness Neuro: reports: Headache, Tremors Endocrine: reports: No Symptoms Reported Hematology: reports: No Symptoms Reported Psychiatric: reports: No Sypmtoms Reported, Judgement Intact, Mood/Affect Appropiate, Orientated x3, Agitated, Anxious Other Systems: Reviewed and Negative Patient History - Patient Medical History Hx Anemia: No Hx Asthma: No Hx Chronic Obstructive Pulmonary Disease (COPD): No Hx Cancer: No Hx Cardiac Disorders: No Hx Congestive Heart Failure: No Hx Hypertension: Yes (on med) Hx Hypercholesterolemia: Yes (NOT CURRENTLY ON MEDS--NONCOMPLIANT WITH LOVANZA) Hx Pacemaker: No HX Cerebrovascular Accident: No Hx Seizures: No Hx Dementia: No Hx Diabetes: Yes (NIDDM) Hx Gastrointestinal Disorders: No Hx Liver Disease: No Hx Genitourinary Disorders: No Hx Sexually Transmitted Disorders: Yes (gonorrhea at age 19) Hx Renal Disease (ESRD): No Hx Thyroid Disease: No Hx Human Immunodeficiency Virus (HIV): No (NEGATIVE HX last 10/22) Hx Hepatitis C: No Hx Depression: No Hx Suicide Attempt: No Hx Bipolar Disorder: No Hx Schizophrenia: No Other Medical History: no suicidal,no homicidal,tinea pedis - Patient Surgical History Past Surgical History: No Hx Neurologic Surgery: No Hx Cataract Extraction: No Hx Cardiac Surgery: No Hx Lung Surgery: No Hx Breast Surgery: No Hx Breast Biopsy: No Hx Abdominal Surgery: No Hx Appendectomy: No Hx Cholecystectomy: No Hx Genitourinary Surgery: No Hx Section: No Hx Orthopedic Surgery: No Hx Hysterectomy: No Anesthesia Reaction: No - PPD History Previous Implant?: Yes Documented Results: Negative w/o proof Implanted On Prior R Admission?: Yes Date: 10/18/17 Results: 0 mm PPD to be Administered?: Yes - Smoking Cessation Smoking history: Former smoker Have you smoked in the past 12 months: No Aproximately how many cigarettes per day: 0 If you are a former smoker, when did you quit?: 11/2017 Cigars Per Day: 0 Hx Chewing Tobacco Use: No Initiated information on smoking cessation: Yes 'Breaking Loose' booklet given: 11/05/18 - Substance & Tx. History Hx Alcohol Use: Yes Hx Substance Use: Yes Substance Use Type: Alcohol, Marijuana Hx Substance Use Treatment: Yes ([facility] 10/08/18 to 10/11/18) - Substances Abused Alcohol Route: Oral Frequency: Daily Amount used: 1pint ofvodak/8 to9 of 12 ozs of beer Age of first use: 19 Date of Last Use: 11/04/18 Marijuana/Hashish Route: Smoking Frequency: 1-3 times last 30 days Amount used: 60$ Age of first use: 19 Date of Last Use: 11/04/18 Family Disease History - Family Disease History Family Disease History: Diabetes: Father (alcohol,sober), Mother (alcoho,sober) Admission Physical Exam [facility] - Vital Signs Vital Signs: Vital Signs - 24 hr 11/05/18 13:24 Temperature 98.6 F Pulse Rate 76 Respiratory 20 Rate Blood Pressure 154/104 H - Physical General Appearance: Yes: Moderate Distress, Tremorous, Irritable, Sweating, Anxious HEENTM: Yes: Normocephalic, JACKLYN, Pharynx Normal Respiratory: Yes: Lungs Clear, Normal Breath Sounds, No Respiratory Distress Neck: Yes: Within Normal Limits, Supple, Trachea in good position Breast: Yes: Within Normal Limits Cardiology: Yes: Within Normal Limits, Regular Rhythm, Regular Rate, S1, S2 Abdominal: Yes: Within Normal Limits, Normal Bowel Sounds, Non Tender, Soft Genitourinary: Yes: Within Normal Limits Back: Yes: Normal Inspection, Muscle Spasm Musculoskeletal: Yes: Back pain, Muscle Pain Extremities: Yes: Tremors, Other (tinea pedis) 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 intact, Fully Oriented, Alert, Motor Strength 5/5 Integumentary: Yes: Dry Lymphatic: Yes: Within Normal Limits - Diagnostic (1) Alcohol dependence with uncomplicated withdrawal Current Visit: No Status: Chronic (2) Anxiety Current Visit: No Status: Chronic (3) Cannabis dependence Current Visit: No Status: Chronic (4) DM Diabetes mellitus type 2 Current Visit: No Status: Chronic (5) Essential hypertension Current Visit: No Status: Chronic (6) Hypercholesterolemia Current Visit: No Status: Chronic Comment: NO MEDS (7) Syncope Current Visit: Yes Status: Acute (8) Tinea pedis Current Visit: Yes Status: Acute Cleared for Admission [facility] - Detox or Rehab S Level of Care: Medically Managed Detox Regimen/Protocol: Librium BHS Breath Alcohol Content Breath Alcohol Content: 0 Urine Drug Screen - Results Drug Screen Negative: No Urine Drug Screen Results: THC-Marijuana, BZO-Benzodiazepines
[2018-11-05] MEDS ORDERED: hydrOXYzine PAMOATE 50 MG CAPSULE (FP) PO PRN (14:51)
[2018-11-05] MEDS ORDERED: IBUPROFEN 400 MG TABLET (FP) PO PRN (14:51)
[2018-11-05] MEDS ORDERED: guaiFENesin/D-METHORPHAN HB 10 ML UNIT-DOSE CUPS PO PRN (14:51)
[2018-11-05] MEDS ORDERED: ACETAMINOPHEN 325 MG TABLET (FP) PO PRN (14:51)
[2018-11-05] MEDS ORDERED: chlordiazePOXIDE HCL 25 MG CAPSULE PO PRN (14:51)
[2018-11-05] MEDS ORDERED: MAGNESIUM CITRATE 300 ML BOTTLE PO PRN (14:51)
[2018-11-05] MEDS ORDERED: P-EPHED 60MG/TRIPROLIDI 2.5MG TABLET PO PRN (14:51)
[2018-11-05] MEDS ORDERED: MAGNESIUM HYDROX 2400MG/30ML ORAL SUSPENSION 30 ML CUP PO PRN (14:51)
[2018-11-05] MEDS ORDERED: MAG HYDROX/AL HYDROX/SIMETH 30 ML UNIT-DOSE CUP PO PRN (14:51)
[2018-11-05] MEDS ORDERED: MENTHOL/PHENOL 1 EACH UD MM PRN (14:51)
[2018-11-05] MEDS ORDERED: LOPERAMIDE HCL 2 MG CAPSULE PO PRN (14:51)
[2018-11-05] MEDS: chlordiazePOXIDE HCL 25 MG CAPSULE PO SCH ×2 (17:54→22:18)
[2018-11-05] MEDS ORDERED: MELATONIN 5 MG TABLETS PO PRN (22:00)
[2018-11-05] MEDS: THIAMINE HCL 100 MG TABLET (FP) PO SCH (22:18)
[2018-11-05] MEDS: TOLNAFTATE 1% CREAM 15 GM TUBE TP SCH (22:18)
[2018-11-06] MEDS: chlordiazePOXIDE HCL 25 MG CAPSULE PO SCH ×4 (05:30→22:11)
[2018-11-06 10:09] LABS: HEMATOCRIT 43.2 % (35.4-49); HEMOGLOBIN 15.6 GM/dL (11.7-16.9); MEAN CELL VOLUME 85.9 fl (80-96); MEAN PLT VOLUME 9.4 fl (7.5-11.1); PLATELET COUNT 221 K/MM3 (134-434); RBC 5.03 M/mm3 (4.00-5.60); RDW 13.6 % (11.9-15.9)
[2018-11-06] MEDS: PRENATAL VITAMINS W/ FOLIC ACID TABLET (FP) PO SCH (10:11)
[2018-11-06] MEDS: TOLNAFTATE 1% CREAM 15 GM TUBE TP SCH ×2 (10:11→22:12)
[2018-11-06 11:30] LABS: ALBUMIN 3.5 g/dl (3.4-5.0); ALK PHOS 79 U/L (45-117); ANION GAP 5 MMOL/L (8-16); BILIRUBIN,TOTAL 0.5 mg/dL (0.2-1); BLOOD UREA NITROGEN 6 mg/dL (7-18); CALCIUM 8.1 mg/dL (8.5-10.1); CHLORIDE 102 mmol/L (98-107); CO2 32 mmol/L (21-32); CREATININE 0.7 mg/dL (0.55-1.3); GLUCOSE,RANDOM 177 mg/dL (74-106); POTASSIUM 3.5 mmol/L (3.5-5.1); SGOT/AST 46 U/L (15-37); SGPT/ALT 56 U/L (13-61); SODIUM 139 mmol/L (136-145); TOT PROT 7.2 g/dl (6.4-8.2)
[2018-11-06] MEDS: NIFEdipine E.R. 30 MG TABLET (FP) PO SCH (13:41)
--- NOTE | 2018-11-06 15:47 | PN ---
S CIWA - CIWA Score Nausea/Vomitin-No Nausea/No Vomiting Muscle Tremors: 4-Moderate,w/Arms Extend Anxiety: 3 Agitation: 2 Paroxysmal Sweats: 3 Orientation: 0-Oriented Tacttile Disturbances: 3-Moderate Itch/Numb/Burn Auditory Disturbances: 0-None Visual Disturbances: 0-None Headache: 0-None Present CIWA-Ar Total Score: 15 BHS Progress Note (SOAP) Subjective: Sweating, Tremors, Diarrhea, Anxious, Nausea, Body Aches. Objective: PATIENT A & O X 3, OBSERVED AMBULATING ON UNIT. IN NO ACUTE DISTRESS. 11/06/18 15:45 Vital Signs Temperature 97.9 F 11/06/18 09:05 Pulse Rate 81 11/06/18 09:05 Respiratory Rate 18 11/06/18 09:05 Blood Pressure 140/92 11/06/18 09:05 O2 Sat by Pulse Oximetry (%) Laboratory Tests 11/05/18 11/06/18 11/06/18 17:10 05:30 08:00 WBC 6.0 RBC 5.03 Hgb 15.6 Hct 43.2 MCV 85.9 MCH 31.0 MCHC 36.0 H RDW 13.6 Plt Count 221 MPV 9.4 Sodium Potassium Chloride Carbon Dioxide Anion Gap BUN Creatinine Creat Clearance w eGFR POC Glucometer 187 141 Random Glucose Calcium Total Bilirubin AST ALT Alkaline Phosphatase Total Protein Albumin RPR Titer 11/06/18 11/06/18 08:00 08:00 WBC RBC Hgb Hct MCV MCH MCHC RDW Plt Count MPV Sodium 139 Potassium 3.5 Chloride 102 Carbon Dioxide 32 Anion Gap 5 L BUN 6 L Creatinine 0.7 Creat Clearance w eGFR > 60 POC Glucometer Random Glucose 177 H Calcium 8.1 L Total Bilirubin 0.5 AST 46 H ALT 56 Alkaline Phosphatase 79 Total Protein 7.2 Albumin 3.5 RPR Titer Nonreactive LABS NOTED. ADMISSION UA RESULTS PENDING. 11/06/18 15:47 Assessment: 11/06/18 15:45 WITHDRAWAL SYMPTOMS. HYPERGLYCEMIA. 11/06/18 15:46 Plan: CONTINUE DETOX. PRN IMMODIUM FOR DIARRHEA. INCREASE DAILY PO FLUID INTAKE.
[2018-11-06 18:44] LABS: URINE APPEARANCE TURBID; URINE BILIRUBIN NEGATIVE (<2.0 mg/dL); URINE COLOR AMBER; URINE GLUCOSE (UA) 3+ (NEGATIVE); URINE KETONE TRACE (NEGATIVE); URINE LEUK ESTERASE NEGATIVE (NEGATIVE); URINE NITRITE NEGATIVE (NEGATIVE); URINE PROTEIN NEGATIVE (NEGATIVE); URINE UROBILINOGEN 4.0 E.U/dl mg/dL (0.2-1.0)
[2018-11-06] MEDS: THIAMINE HCL 100 MG TABLET (FP) PO SCH (22:11)
[2018-11-07] MEDS: chlordiazePOXIDE HCL 25 MG CAPSULE PO SCH ×2 (05:52→10:17)
[2018-11-07] MEDS: TOLNAFTATE 1% CREAM 15 GM TUBE TP SCH ×2 (10:17→23:11)
[2018-11-07] MEDS: NIFEdipine E.R. 30 MG TABLET (FP) PO SCH (10:17)
[2018-11-07] MEDS: PRENATAL VITAMINS W/ FOLIC ACID TABLET (FP) PO SCH (10:17)
--- NOTE | 2018-11-07 16:18 | PN ---
S CIWA - CIWA Score Nausea/Vomitin-No Nausea/No Vomiting Muscle Tremors: None Anxiety: 3 Agitation: 3 Paroxysmal Sweats: No Perspiration Orientation: 0-Oriented Tacttile Disturbances: 2-Mild Itch/Numbness/Burn Auditory Disturbances: 0-None Visual Disturbances: 2-Mild Sensitivity Headache: 0-None Present CIWA-Ar Total Score: 10 S Progress Note (SOAP) Subjective: Fatigue, Constipation, Stomach Cramping. Objective: PATIENT A & O X 3, OBSERVED AMBULATING ON UNIT. IN NO ACUTE DISTRESS. 11/07/18 16:17 Vital Signs Temperature 98.6 F 11/07/18 14:07 Pulse Rate 82 11/07/18 14:07 Respiratory Rate 18 11/07/18 14:07 Blood Pressure 113/62 11/07/18 14:07 O2 Sat by Pulse Oximetry (%) Laboratory Tests 11/05/18 11/06/18 11/06/18 17:10 05:30 08:00 WBC 6.0 RBC 5.03 Hgb 15.6 Hct 43.2 MCV 85.9 MCH 31.0 MCHC 36.0 H RDW 13.6 Plt Count 221 MPV 9.4 Sodium Potassium Chloride Carbon Dioxide Anion Gap BUN Creatinine Creat Clearance w eGFR POC Glucometer 187 141 Random Glucose Calcium Total Bilirubin AST ALT Alkaline Phosphatase Total Protein Albumin Urine Color Urine Appearance Urine pH Ur Specific [place] Urine Protein Urine Glucose (UA) Urine Ketones Urine Blood Urine Nitrite Urine Bilirubin Urine Urobilinogen Ur Leukocyte Esterase RPR Titer 11/06/18 11/06/18 11/06/18 08:00 08:00 10:30 WBC RBC Hgb Hct MCV MCH MCHC RDW Plt Count MPV Sodium 139 Potassium 3.5 Chloride 102 Carbon Dioxide 32 Anion Gap 5 L BUN 6 L Creatinine 0.7 Creat Clearance w eGFR > 60 POC Glucometer Random Glucose 177 H Calcium 8.1 L Total Bilirubin 0.5 AST 46 H ALT 56 Alkaline Phosphatase 79 Total Protein 7.2 Albumin 3.5 Urine Color Jazz Urine Appearance Turbid Urine pH 5.0 Ur Specific [place] 1.025 Urine Protein Negative Urine Glucose (UA) 3+ H Urine Ketones Trace H Urine Blood Negative Urine Nitrite Negative Urine Bilirubin Negative Urine Urobilinogen 4.0 e.u/dl Ur Leukocyte Esterase Negative RPR Titer Nonreactive 11/06/18 11/07/18 16:21 05:53 WBC RBC Hgb Hct MCV MCH MCHC RDW Plt Count MPV Sodium Potassium Chloride Carbon Dioxide Anion Gap BUN Creatinine Creat Clearance w eGFR POC Glucometer 212 211 Random Glucose Calcium Total Bilirubin AST ALT Alkaline Phosphatase Total Protein Albumin Urine Color Urine Appearance Urine pH Ur Specific [place] Urine Protein Urine Glucose (UA) Urine Ketones Urine Blood Urine Nitrite Urine Bilirubin Urine Urobilinogen Ur Leukocyte Esterase RPR Titer LABS NOTED. Assessment: 11/07/18 16:18 WITHDRAWAL SYMPTOMS. Plan: CONTINUE DETOX. INCREASE DAILY PO FLUID INTAKE.
[2018-11-07] MEDS: chlordiazePOXIDE 5 MG CAPSULE PO SCH ×2 (17:24→23:11)
[2018-11-07] MEDS: THIAMINE HCL 100 MG TABLET (FP) PO SCH (23:12)
[2018-11-08] MEDS: chlordiazePOXIDE 5 MG CAPSULE PO SCH ×2 (05:52→10:54)
[2018-11-08 09:33] VITALS: BP 130/76; PULSE 77; TEMP 98.1
[2018-11-08] MEDS: TOLNAFTATE 1% CREAM 15 GM TUBE TP SCH (10:54)
[2018-11-08] MEDS: PRENATAL VITAMINS W/ FOLIC ACID TABLET (FP) PO SCH (10:54)
[2018-11-08] MEDS: NIFEdipine E.R. 30 MG TABLET (FP) PO SCH (10:54)
--- NOTE | 2018-11-08 16:39 | PN ---
BHS Progress Note (SOAP) Subjective: Fatigue, Interrupted Sleep. Objective: PATIENT A & O X 3, OBSERVED AMBULATING ON UNIT. IN NO ACUTE DISTRESS. 11/08/18 16:40 Vital Signs Temperature 98.1 F 11/08/18 09:32 Pulse Rate 77 11/08/18 09:32 Respiratory Rate 16 11/08/18 09:32 Blood Pressure 130/76 11/08/18 09:32 O2 Sat by Pulse Oximetry (%) Laboratory Tests 11/05/18 11/06/18 11/06/18 17:10 05:30 08:00 WBC 6.0 RBC 5.03 Hgb 15.6 Hct 43.2 MCV 85.9 MCH 31.0 MCHC 36.0 H RDW 13.6 Plt Count 221 MPV 9.4 Sodium Potassium Chloride Carbon Dioxide Anion Gap BUN Creatinine Creat Clearance w eGFR POC Glucometer 187 141 Random Glucose Calcium Total Bilirubin AST ALT Alkaline Phosphatase Total Protein Albumin Urine Color Urine Appearance Urine pH Ur Specific [place] Urine Protein Urine Glucose (UA) Urine Ketones Urine Blood Urine Nitrite Urine Bilirubin Urine Urobilinogen Ur Leukocyte Esterase RPR Titer 11/06/18 11/06/18 11/06/18 08:00 08:00 10:30 WBC RBC Hgb Hct MCV MCH MCHC RDW Plt Count MPV Sodium 139 Potassium 3.5 Chloride 102 Carbon Dioxide 32 Anion Gap 5 L BUN 6 L Creatinine 0.7 Creat Clearance w eGFR > 60 POC Glucometer Random Glucose 177 H Calcium 8.1 L Total Bilirubin 0.5 AST 46 H ALT 56 Alkaline Phosphatase 79 Total Protein 7.2 Albumin 3.5 Urine Color Jazz Urine Appearance Turbid Urine pH 5.0 Ur Specific [place] 1.025 Urine Protein Negative Urine Glucose (UA) 3+ H Urine Ketones Trace H Urine Blood Negative Urine Nitrite Negative Urine Bilirubin Negative Urine Urobilinogen 4.0 e.u/dl Ur Leukocyte Esterase Negative RPR Titer Nonreactive 11/06/18 11/07/18 11/07/18 16:21 05:53 16:42 WBC RBC Hgb Hct MCV MCH MCHC RDW Plt Count MPV Sodium Potassium Chloride Carbon Dioxide Anion Gap BUN Creatinine Creat Clearance w eGFR POC Glucometer 212 211 218 Random Glucose Calcium Total Bilirubin AST ALT Alkaline Phosphatase Total Protein Albumin Urine Color Urine Appearance Urine pH Ur Specific [place] Urine Protein Urine Glucose (UA) Urine Ketones Urine Blood Urine Nitrite Urine Bilirubin Urine Urobilinogen Ur Leukocyte Esterase RPR Titer 11/08/18 05:52 WBC RBC Hgb Hct MCV MCH MCHC RDW Plt Count MPV Sodium Potassium Chloride Carbon Dioxide Anion Gap BUN Creatinine Creat Clearance w eGFR POC Glucometer 320 Random Glucose Calcium Total Bilirubin AST ALT Alkaline Phosphatase Total Protein Albumin Urine Color Urine Appearance Urine pH Ur Specific [place] Urine Protein Urine Glucose (UA) Urine Ketones Urine Blood Urine Nitrite Urine Bilirubin Urine Urobilinogen Ur Leukocyte Esterase RPR Titer LABS NOTED. Assessment: 11/08/18 16:41 WITHDRAWAL SYMPTOMS. Plan: CONTINUE DETOX.
--- NOTE | 2018-11-08 16:45 | DS ---
[facility] Detox Discharge Summary Admission Date: 11/05/18 Discharge Date: 11/08/18 - History Present History: Alcohol Dependence, Cannabis Dependence Additional Comments: PATIENT DOES NOT WISH TO REMAIN TO COMPLETE DETOX REGIMEN. RISKS OF LEAVING DETOX UNIT AGAINST MEDICAL ADVICE AND PRIOR TO COMPLETION OF DETOX REGIMEN EXPLAINED TO PATIENT. PATIENT ADVISED TO GO IMMEDIATELY TO NEAREST ER SHOULD ANY INTOLERABLE DETOX SYMPTOMS DEVELOP AT ANY TIME. PATIENT VERBALIZED UNDERSTANDING OF ALL INFORMATION / RECOMMENDATIONS PRESENTED TO HIM PRIOR TO DEPARTURE FROM DETOX UNIT. PATIENT LEFT DETOX UNIT IN STABLE MEDICAL CONDITION. Pertinent Past History: Type II DM, HTN, Hypercholesterolemia, History of Anxiety, Nicotine Dependence, History of Syncope, Tinea Pedis. - Physical Exam Results Vital Signs: Vital Signs Temperature 98.1 F 11/08/18 09:32 Pulse Rate 77 11/08/18 09:32 Respiratory Rate 16 11/08/18 09:32 Blood Pressure 130/76 11/08/18 09:32 O2 Sat by Pulse Oximetry (%) Pertinent Admission Physical Exam Findings: WITHDRAWAL SYMPTOMS. Laboratory Tests 11/05/18 11/06/18 11/06/18 17:10 05:30 08:00 WBC 6.0 RBC 5.03 Hgb 15.6 Hct 43.2 MCV 85.9 MCH 31.0 MCHC 36.0 H RDW 13.6 Plt Count 221 MPV 9.4 Sodium Potassium Chloride Carbon Dioxide Anion Gap BUN Creatinine Creat Clearance w eGFR POC Glucometer 187 141 Random Glucose Calcium Total Bilirubin AST ALT Alkaline Phosphatase Total Protein Albumin Urine Color Urine Appearance Urine pH Ur Specific [place] Urine Protein Urine Glucose (UA) Urine Ketones Urine Blood Urine Nitrite Urine Bilirubin Urine Urobilinogen Ur Leukocyte Esterase RPR Titer 11/06/18 11/06/18 11/06/18 08:00 08:00 10:30 WBC RBC Hgb Hct MCV MCH MCHC RDW Plt Count MPV Sodium 139 Potassium 3.5 Chloride 102 Carbon Dioxide 32 Anion Gap 5 L BUN 6 L Creatinine 0.7 Creat Clearance w eGFR > 60 POC Glucometer Random Glucose 177 H Calcium 8.1 L Total Bilirubin 0.5 AST 46 H ALT 56 Alkaline Phosphatase 79 Total Protein 7.2 Albumin 3.5 Urine Color Jazz Urine Appearance Turbid Urine pH 5.0 Ur Specific [place] 1.025 Urine Protein Negative Urine Glucose (UA) 3+ H Urine Ketones Trace H Urine Blood Negative Urine Nitrite Negative Urine Bilirubin Negative Urine Urobilinogen 4.0 e.u/dl Ur Leukocyte Esterase Negative RPR Titer Nonreactive 11/06/18 11/07/18 11/07/18 16:21 05:53 16:42 WBC RBC Hgb Hct MCV MCH MCHC RDW Plt Count MPV Sodium Potassium Chloride Carbon Dioxide Anion Gap BUN Creatinine Creat Clearance w eGFR POC Glucometer 212 211 218 Random Glucose Calcium Total Bilirubin AST ALT Alkaline Phosphatase Total Protein Albumin Urine Color Urine Appearance Urine pH Ur Specific [place] Urine Protein Urine Glucose (UA) Urine Ketones Urine Blood Urine Nitrite Urine Bilirubin Urine Urobilinogen Ur Leukocyte Esterase RPR Titer 11/08/18 05:52 WBC RBC Hgb Hct MCV MCH MCHC RDW Plt Count MPV Sodium Potassium Chloride Carbon Dioxide Anion Gap BUN Creatinine Creat Clearance w eGFR POC Glucometer 320 Random Glucose Calcium Total Bilirubin AST ALT Alkaline Phosphatase Total Protein Albumin Urine Color Urine Appearance Urine pH Ur Specific [place] Urine Protein Urine Glucose (UA) Urine Ketones Urine Blood Urine Nitrite Urine Bilirubin Urine Urobilinogen Ur Leukocyte Esterase RPR Titer LABS NOTED. - Treatment Hospital Course: Detoxed Safely - Medication Discharge Medications: Ambulatory Orders Nifedipine ER [Procardia XL -] 30 mg PO DAILY 30 Days #30 tab.er.24 10/11/18 metFORMIN HCL [Metformin HCl] 850 mg PO BID #60 tablet 10/11/18 - Diagnosis (1) Alcohol dependence with uncomplicated withdrawal Status: Acute (2) DM Diabetes mellitus type 2 Status: Chronic (3) Essential hypertension Status: Chronic (4) Hypercholesterolemia Status: Chronic (5) Syncope Status: Acute Qualifiers: Syncope type: unspecified Qualified Code(s): R55 - Syncope and collapse (6) Tinea pedis Status: Acute Qualifiers: Laterality: unspecified laterality Qualified Code(s): B35.3 - Tinea pedis (7) Anxiety Status: Chronic (8) Cannabis dependence Status: Chronic - AMA Did Patient Leave Against Medical Advice: Yes (PATIENT DID NOT WISH TO STAY TO COMPLETE DETOX REGIMEN.)
[2018-11-08] MEDS ORDERED: chlordiazePOXIDE HCL 10 MG CAPSULE PO SCH (17:00)
== END 2018-11-08 02:17 | disposition left against medical advice (07) | DRG 894 ==
LOC: YASAS 11:51 → Y6N 14:50
PROC: HZ2ZZZZ Detoxification Services for Substance Abuse Treatment (ICD-10-PCS; principal; 2018-11-05)
DX: F10.230 Alcohol dependence with withdrawal, uncomplicated (principal); F12.20 Cannabis dependence, uncomplicated; F41.9 Anxiety disorder, unspecified; I10 Essential (primary) hypertension; E11.65 Type 2 diabetes mellitus with hyperglycemia; E78.00 Pure hypercholesterolemia, unspecified; B35.3 Tinea pedis; Z87.891 Personal history of nicotine dependence; Z87.438 Personal history of other diseases of male genital organs; Z91.013 Allergy to seafood; Z91.14 Patient's other noncompliance with medication regimen; Z79.84 Long term (current) use of oral hypoglycemic drugs
CPT/HCPCS: 36415; 80053; 81003; 82962; 85027; 86593

== ENCOUNTER 2018-11-28 09:42 | Inpatient (IN) | payer OTHER ==
[2018-11-28 10:47] VITALS: BMI 31.3
--- NOTE | 2018-11-28 12:23 | HP ---
CIWA Score - Admission Criteria OASAS Guidelines: Admission for Medically Managed Detox: Requires at least one of the followin. CIWA greater than 12 2. Seizures within the past 24 hours 3. Delirium tremens within the past 24 hours 4. Hallucinations within the past 24 hours 5. Acute intervention needed for co occurring medical disorder 6. Acute intervention needed for co occurring psychiatric disorder 7. Severe withdrawal that cannot be handled at a lower level of care (continued vomiting, continued diarrhea, abnormal vital signs) requiring intravenous medication and/or fluids 8. Admission ROS S - HPI Allergies/Adverse Reactions: Allergies Allergy/AdvReac Type Severity Reaction Status Date / Time fish derived Allergy Severe Rash Verified 11/28/18 11:06 No Known Drug Allergies Allergy Verified 11/28/18 11:06 lactose AdvReac Severe Vomiting Verified 11/28/18 11:06 WHITE MEAT AdvReac Severe Vomiting Uncoded 11/28/18 11:06 History of Present Illness: patient here requesting rehab after detox , completed at [facility] Nov 21 , denies relapse since d/c , reports etoh use 8 cans x 12 / 0z , 1 pint vodka since 2010 . Prior sobriety x 3 years while in outpt [facility] . cannabis use - 1 x/ month utox + thx , + bzo PMHX ; HTN , DM2 since 2002 , anxiety PShx : denies PSych : denies SI / HI tobacco ; denies , quit 7 mo ago Exam Limitations: No Limitations - Ebola screening Have you traveled outside of the country in the last 21 days: No Have you had contact with anyone from an Ebola affected area: No Have you been sick,other than usual withdrawal symptoms: No Do you have a fever: No - Review of Systems Constitutional: No Symptoms Reported EENT: reports: Blurred Vision (x 18 months , saw ophtalmologist , told to followup , has appt 12/20/17 no glasses edentulous, lost dentures , denies dysphagia) Respiratory: reports: No Symptoms reported Cardiac: reports: No Symptoms Reported GI: reports: No Symptoms Reported Musculoskeletal: reports: No Symptoms Reported Integumentary: reports: No Symptoms Reported Neuro: reports: No Symptoms reported Endocrine: reports: No Symptoms Reported Psychiatric: reports: Orientated x3, Anxious Patient History - Patient Medical History Hx Anemia: No Hx Asthma: No Hx Chronic Obstructive Pulmonary Disease (COPD): No Hx Cancer: No Hx Cardiac Disorders: No Hx Congestive Heart Failure: No Hx Hypertension: Yes Hx Hypercholesterolemia: Yes (NOT CURRENTLY ON MEDS--NONCOMPLIANT WITH LOVANZA) Hx Pacemaker: No HX Cerebrovascular Accident: No Hx Seizures: No Hx Dementia: No Hx Diabetes: Yes (NIDDM) Hx Gastrointestinal Disorders: No Hx Liver Disease: No Hx Genitourinary Disorders: No Hx Sexually Transmitted Disorders: Yes (gonorrhea at age 32) Hx Renal Disease (ESRD): No Hx Thyroid Disease: No Hx Human Immunodeficiency Virus (HIV): No (NEGATIVE HX last 10/22) Hx Hepatitis C: No Hx Depression: No Hx Suicide Attempt: No Hx Bipolar Disorder: No Hx Schizophrenia: No - Patient Surgical History Past Surgical History: No Hx Neurologic Surgery: No Hx Cataract Extraction: No Hx Cardiac Surgery: No Hx Lung Surgery: No Hx Breast Surgery: No Hx Breast Biopsy: No Hx Abdominal Surgery: No Hx Appendectomy: No Hx Cholecystectomy: No Hx Genitourinary Surgery: No Hx Section: No Hx Orthopedic Surgery: No Hx Hysterectomy: No Anesthesia Reaction: No - PPD History Previous Implant?: Yes Documented Results: Negative w/proof Implanted On Prior R Admission?: Yes Date: 11/07/18 Results: 0 mm - Smoking Cessation Smoking history: Former smoker Have you smoked in the past 12 months: No Aproximately how many cigarettes per day: 2 If you are a former smoker, when did you quit?: 06/2018 Cigars Per Day: 0 Hx Chewing Tobacco Use: No Initiated information on smoking cessation: No - Substances Abused Alcohol-beer/vodka Route: Oral Frequency: Daily Amount used: 1-6 pk./1 pt. Age of first use: 19 Date of Last Use: 11/18/18 Marijuana Route: Smoking Frequency: 1-3 times last 30 days Amount used: $40 Age of first use: 19 Date of Last Use: 11/18/18 Family Disease History - Family Disease History Family Disease History: Diabetes: Father (alcohol,sober), Mother (alcoho,sober) Admission Physical Exam [facility] - Vital Signs Vital Signs: Vital Signs - 24 hr 11/28/18 10:44 Temperature 97.6 F Pulse Rate 79 Respiratory 18 Rate Blood Pressure 149/93 - Physical General Appearance: Yes: No Apparent Distress HEENTM: Yes: EOMI, Hearing grossly Normal, Normocephalic, Normal Voice Respiratory: Yes: Chest Non-Tender, Lungs Clear, Normal Breath Sounds Neck: Yes: No masses,lesions,Nodules, Trachea in good position Breast: Yes: Breast Exam Deferred Cardiology: Yes: Regular Rhythm, Regular Rate, S1, S2 Abdominal: Yes: Normal Bowel Sounds, Soft, Protuberent Genitourinary: Yes: Within Normal Limits Back: Yes: Normal Inspection Musculoskeletal: Yes: full range of Motion, Gait Steady Extremities: Yes: Normal Capillary Refill, Normal Range of Motion 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: Yes: Motor Strength 5/5, Normal Mood/Affect Integumentary: Yes: Normal Color, Dry, Warm - Diagnostic (1) Alcohol dependence Current Visit: No Status: Chronic Qualifiers: Substance use status: in remission Qualified Code(s): F10.21 - Alcohol dependence, in remission (2) Cannabis dependence Current Visit: No Status: Chronic (3) Essential hypertension Current Visit: No Status: Chronic BHS Breath Alcohol Content Breath Alcohol Content: 0 Urine Drug Screen - Results Drug Screen Negative: No Urine Drug Screen Results: THC-Marijuana, BZO-Benzodiazepines Inpatient Rehab Admission - Initial Determination Are CD services needed?: Yes Free of communicable disease: Yes Not in need of hospitalization: Yes - Rehab Admission Criteria Previous failed treatment: Yes Poor recovery environment: Yes Comorbidities: No Lacks judgement: Yes Patient is meeting Inpatient Rehab admission criteria:: Yes
[2018-11-28] MEDS ORDERED: P-EPHED 60MG/TRIPROLIDI 2.5MG TABLET PO PRN (12:27)
[2018-11-28] MEDS ORDERED: IBUPROFEN 400 MG TABLET (FP) PO PRN (12:27)
[2018-11-28] MEDS ORDERED: guaiFENesin/D-METHORPHAN HB 10 ML UNIT-DOSE CUPS PO PRN (12:27)
[2018-11-28] MEDS ORDERED: MAG HYDROX/AL HYDROX/SIMETH 30 ML UNIT-DOSE CUP PO PRN (12:27)
[2018-11-28] MEDS ORDERED: ACETAMINOPHEN 325 MG TABLET (FP) PO PRN (12:27)
[2018-11-28] MEDS ORDERED: MAGNESIUM HYDROX 2400MG/30ML ORAL SUSPENSION 30 ML CUP PO PRN (12:27)
[2018-11-28] MEDS ORDERED: MENTHOL/PHENOL 1 EACH UD MM PRN (12:27)
[2018-11-28] MEDS ORDERED: MAGNESIUM CITRATE 300 ML BOTTLE PO PRN (12:27)
[2018-11-28] MEDS ORDERED: TALC 70.9 GM BTL TP SCH (14:20)
[2018-11-28 14:34] LABS: HEMATOCRIT 39.7 % (35.4-49); HEMOGLOBIN 13.4 GM/dL (11.7-16.9); MCH 29.9 pg (25.7-33.7); MCHC 33.9 g/dl (32.0-35.9); MEAN CELL VOLUME 88.4 fl (80-96); MEAN PLT VOLUME 9.2 fl (7.5-11.1); PLATELET COUNT 210 K/MM3 (134-434); RBC 4.49 M/mm3 (4.00-5.60); RDW 14.2 % (11.9-15.9); WHITE BLOOD COUNT 5.3 K/mm3 (4.0-10.0)
[2018-11-28 14:49] LABS: ALK PHOS 70 U/L (45-117); ANION GAP 7 MMOL/L (8-16); BILIRUBIN,TOTAL 0.4 mg/dL (0.2-1); BLOOD UREA NITROGEN 12 mg/dL (7-18); CALCIUM 8.6 mg/dL (8.5-10.1); CHLORIDE 106 mmol/L (98-107); CO2 27 mmol/L (21-32); CREATININE 0.7 mg/dL (0.55-1.3); GLUCOSE,RANDOM 220 mg/dL (74-106); POTASSIUM 3.9 mmol/L (3.5-5.1); SGOT/AST 17 U/L (15-37); SGPT/ALT 21 U/L (13-61); SODIUM 140 mmol/L (136-145); TOT PROT 7.1 g/dl (6.4-8.2)
[2018-11-28] MEDS ORDERED: TOLNAFTATE 1% POWDER 45 GM POW TP SCH (16:24)
[2018-11-28] MEDS: INSULIN SLIDING SCALE (NOVOLOG) 1 VIAL SQ SCH (16:57)
[2018-11-28 17:26] LABS: URINE APPEARANCE TURBID; URINE BILIRUBIN NEGATIVE (<2.0 mg/dL); URINE COLOR YELLOW; URINE GLUCOSE (UA) 2+ (NEGATIVE); URINE KETONE TRACE (NEGATIVE); URINE LEUK ESTERASE NEGATIVE (NEGATIVE); URINE NITRITE NEGATIVE (NEGATIVE); URINE PROTEIN NEGATIVE (NEGATIVE)
[2018-11-28] MEDS ORDERED: PT OWN MED DRAWER 7, Y5N ONE (20:06)
[2018-11-28] MEDS: TOLNAFTATE 1% POWDER 45 GM POW TP SCH (20:08)
[2018-11-28] MEDS: THIAMINE HCL 100 MG TABLET (FP) PO SCH (21:50)
[2018-11-28] MEDS: hydrOXYzine HCL 25 MG TABLET (FP) PO PRN (21:50)
[2018-11-28] MEDS ORDERED: MELATONIN 5 MG TABLETS PO PRN (22:00)
[2018-11-29] MEDS: hydrOXYzine HCL 25 MG TABLET (FP) PO PRN ×2 (07:02→21:47)
[2018-11-29] MEDS: INSULIN SLIDING SCALE (NOVOLOG) 1 VIAL SQ SCH ×3 (08:08→16:43)
[2018-11-29] MEDS: PRENATAL VITAMINS W/ FOLIC ACID TABLET (FP) PO SCH (10:05)
[2018-11-29] MEDS: NIFEdipine E.R. 30 MG TABLET (FP) PO SCH (10:05)
[2018-11-29] MEDS: TOLNAFTATE 1% POWDER 45 GM POW TP SCH (10:06)
[2018-11-29] MEDS: THIAMINE HCL 100 MG TABLET (FP) PO SCH (21:47)
[2018-11-30] MEDS: INSULIN SLIDING SCALE (NOVOLOG) 1 VIAL SQ SCH ×3 (06:14→16:59)
[2018-11-30] MEDS: NIFEdipine E.R. 30 MG TABLET (FP) PO SCH (10:23)
[2018-11-30] MEDS: PRENATAL VITAMINS W/ FOLIC ACID TABLET (FP) PO SCH (10:23)
[2018-11-30] MEDS: TOLNAFTATE 1% POWDER 45 GM POW TP SCH (10:23)
[2018-11-30] MEDS ORDERED: INSULIN (NOVOLOG) ASPART 100 UNITS/ML 10ML VIAL ONE ×2 (11:56→16:59)
[2018-11-30] MEDS: THIAMINE HCL 100 MG TABLET (FP) PO SCH (21:58)
[2018-12-01] MEDS: INSULIN SLIDING SCALE (NOVOLOG) 1 VIAL SQ SCH ×3 (06:17→16:59)
[2018-12-01] MEDS: PRENATAL VITAMINS W/ FOLIC ACID TABLET (FP) PO SCH (10:06)
[2018-12-01] MEDS: TOLNAFTATE 1% POWDER 45 GM POW TP SCH ×2 (10:07→10:10)
[2018-12-01] MEDS: NIFEdipine E.R. 30 MG TABLET (FP) PO SCH (10:07)
[2018-12-01] MEDS: hydrOXYzine HCL 25 MG TABLET (FP) PO PRN (10:08)
[2018-12-01] MEDS: THIAMINE HCL 100 MG TABLET (FP) PO SCH (22:12)
[2018-12-02 06:53] VITALS: BP 154/85; PULSE 87; TEMP 97.6
[2018-12-02] MEDS: INSULIN SLIDING SCALE (NOVOLOG) 1 VIAL SQ SCH (07:15)
== END 2018-12-02 08:40 | disposition left against medical advice (07) | DRG 894 ==
LOC: YASAS 09:42 → Y3W 12:51
PROVIDERS: ADMIT Psychiatry & Neurology Psychiatry; ATTEND Psychiatry & Neurology Psychiatry
PROC: HZ42ZZZ Group Counseling for Substance Abuse Treatment, Cognitive-Behavioral (ICD-10-PCS; principal; 2018-11-28)
DX: F10.20 Alcohol dependence, uncomplicated (principal); F12.20 Cannabis dependence, uncomplicated; I10 Essential (primary) hypertension; E78.00 Pure hypercholesterolemia, unspecified; E11.9 Type 2 diabetes mellitus without complications; Z87.438 Personal history of other diseases of male genital organs; Z87.891 Personal history of nicotine dependence; Z91.013 Allergy to seafood; Z91.14 Patient's other noncompliance with medication regimen
CPT/HCPCS: 36415; 80053; 81003; 82962; 85027; 86593

== ENCOUNTER 2018-12-21 09:21 | Inpatient (IN) | payer OTHER ==
[2018-12-21 09:38] VITALS: BMI 32.5
--- NOTE | 2018-12-21 10:06 | HP ---
CIWA Score Nausea/Vomitin Muscle Tremors: 4-Moderate,w/Arms Extend Anxiety: 4-Mod. Anxious/Guarded Agitation: 1-Slight > Activity Paroxysmal Sweats: No Perspiration Orientation: 1-Uncertain about Date Tacttile Disturbances: 0-None Auditory Disturbances: 1-Very Mild Visual Disturbances: 1-Very Mild Sensitivity Headache: 1-Very Mild CIWA-Ar Total Score: 15 - Admission Criteria OASAS Guidelines: Admission for Medically Managed Detox: Requires at least one of the followin. CIWA greater than 12 2. Seizures within the past 24 hours 3. Delirium tremens within the past 24 hours 4. Hallucinations within the past 24 hours 5. Acute intervention needed for co occurring medical disorder 6. Acute intervention needed for co occurring psychiatric disorder 7. Severe withdrawal that cannot be handled at a lower level of care (continued vomiting, continued diarrhea, abnormal vital signs) requiring intravenous medication and/or fluids 8. Patient presents the following: CIWA greater than 12 Admission Criteria Met: Admission criteria met Admission ROS S - [facility] Chief Complaint: I failed last time I was here. I want to do what I need to do, work my program , I lost my job, my housing, I need help Allergies/Adverse Reactions: Allergies Allergy/AdvReac Type Severity Reaction Status Date / Time fish derived Allergy Severe Rash Verified 12/21/18 09:52 No Known Drug Allergies Allergy Verified 12/21/18 09:52 lactose AdvReac Severe Vomiting Verified 12/21/18 09:52 WHITE MEAT AdvReac Severe Vomiting Uncoded 12/21/18 09:52 History of Present Illness: 53 yo gentleman here for detox from alcohol - was in [facility] ED last night and given librium (urine tox + bzo) due to his shaking/tremors and told to go for detox. No seizures but does have black outs. Long history of multiple admissions for treatment - never on MAT - discussed same and he is interested in Vivitrol upon discharge. Patient was here 11/28-12/02/18 for rehab but left AMA - did not f/u with outpatient program. Exam Limitations: Clinical Condition - Ebola screening Have you traveled outside of the country in the last 21 days: No (N) Have you had contact with anyone from an Ebola affected area: No Have you been sick,other than usual withdrawal symptoms: No Do you have a fever: No - Review of Systems Constitutional: Chills, Loss of Appetite, Night Sweats, Changes in sleep EENT: reports: No Symptoms Reported Respiratory: reports: No Symptoms reported Cardiac: reports: No Symptoms Reported GI: reports: Poor Fluid Intake, Indigestion, Abdominal cramping : reports: Frequency Musculoskeletal: reports: No Symptoms Reported Integumentary: reports: No Symptoms Reported Neuro: reports: Headache, Tremors Endocrine: reports: No Symptoms Reported Hematology: reports: No Symptoms Reported Psychiatric: reports: Judgement Intact, Mood/Affect Appropiate, Anxious Other Systems: Reviewed and Negative Patient History - Patient Medical History Hx Anemia: No Hx Asthma: No Hx Chronic Obstructive Pulmonary Disease (COPD): No Hx Cancer: No Hx Cardiac Disorders: No Hx Congestive Heart Failure: No Hx Hypertension: Yes Hx Hypercholesterolemia: Yes Hx Pacemaker: No HX Cerebrovascular Accident: No Hx Seizures: No Hx Dementia: No Hx Diabetes: Yes (NIDDM) Hx Gastrointestinal Disorders: Yes (gerd) Hx Liver Disease: No Hx Genitourinary Disorders: No Hx Sexually Transmitted Disorders: Yes (gonorrhea at age 32) Hx Renal Disease (ESRD): No Hx Thyroid Disease: No Hx Human Immunodeficiency Virus (HIV): No (NEGATIVE HX last 10/22) Hx Hepatitis C: No Hx Depression: No (anxiety, gets panic) Hx Suicide Attempt: No Hx Bipolar Disorder: No Hx Schizophrenia: No - Patient Surgical History Past Surgical History: No Hx Neurologic Surgery: No Hx Cataract Extraction: No Hx Cardiac Surgery: No Hx Lung Surgery: No Hx Breast Surgery: No Hx Breast Biopsy: No Hx Abdominal Surgery: No Hx Appendectomy: No Hx Cholecystectomy: No Hx Genitourinary Surgery: No Hx Section: No Hx Orthopedic Surgery: No Hx Hysterectomy: No Anesthesia Reaction: No - PPD History Previous Implant?: Yes Documented Results: Negative w/proof Implanted On Prior R Admission?: Yes Date: 11/07/18 Results: 0 mm PPD to be Administered?: No - Reproductive History Patient is a Female of Child Bearing Age (11 -55 yrs old): No (male) - Smoking Cessation Smoking history: Former smoker (stopped seven months ago) Have you smoked in the past 12 months: Yes Aproximately how many cigarettes per day: 2 If you are a former smoker, when did you quit?: 06/2018 Cigars Per Day: 0 Hx Chewing Tobacco Use: No Initiated information on smoking cessation: No - Substance & Tx. History Hx Alcohol Use: Yes Hx Substance Use: Yes Substance Use Type: Alcohol, Marijuana Hx Substance Use Treatment: Yes (detox, rehab) - Substances Abused Alcohol Route: Oral Frequency: Daily Amount used: 8 CANS 12OZ BEER; 1 pint vodka Age of first use: 19 Date of Last Use: 12/21/18 Marijuana/Hashish Route: Smoking Frequency: 1-3 times last 30 days Amount used: 3 BAGS Age of first use: 19 Date of Last Use: 12/05/18 Family Disease History - Family Disease History Family Disease History: Diabetes: Father (no contact - alcohol,sober), Mother ( no contact -alcohol,sober), Other: Father, Brother (seven half brothers), Sister (one) Admission Physical Exam [facility] - Vital Signs Vital Signs: Vital Signs - 24 hr 12/21/18 09:36 Temperature 97 F L Pulse Rate 72 Respiratory 18 Rate Blood Pressure 146/89 - Physical General Appearance: Yes: Nourished, Appropriately Dressed, Moderate Distress, Obese, Tremorous, Anxious HEENTM: Yes: EOMI, Hearing grossly Normal, Normal ENT Inspection, Normocephalic , Normal Voice, Pharynx Normal Respiratory: Yes: Normal Breath Sounds, No Respiratory Distress Neck: Yes: No masses,lesions,Nodules, Supple Breast: Yes: Breast Exam Deferred Cardiology: Yes: Regular Rhythm, Regular Rate Abdominal: Yes: Soft Genitourinary: Yes: Frequency Back: Yes: Normal Inspection Musculoskeletal: Yes: full range of Motion, Gait Steady Extremities: Yes: Normal Inspection, Normal Range of Motion, Non-Tender 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: Yes: Alert, Motor Strength 5/5, Normal Mood/Affect, Normal Response Integumentary: Yes: Normal Color, Dry, Warm Lymphatic: Yes: Within Normal Limits - Addiitonal Findings: AMD=[id number] - Diagnostic (1) Alcohol dependence with uncomplicated withdrawal Current Visit: Yes Status: Acute (2) Cannabis abuse Current Visit: Yes Status: Chronic (3) DM Diabetes mellitus type 2 Current Visit: Yes Status: Chronic (4) Essential hypertension Current Visit: Yes Status: Chronic (5) Obesity Current Visit: Yes Status: Chronic Qualifiers: Obesity type: unspecified obesity type Obesity classification: adult class 1 (BMI 30 - 34.9) Serious obesity comorbidity presence: unspecified whether serious comorbidity present Body mass index: unspecified BMI Qualified Code( s): E66.9 - Obesity, unspecified Cleared for Admission [facility] - Detox or Rehab [facility] Level of Care: Medically Managed Detox Regimen/Protocol: Librium [facility] Breath Alcohol Content Breath Alcohol Content: 0 Urine Drug Screen - Results Drug Screen Negative: No Urine Drug Screen Results: THC-Marijuana, BZO-Benzodiazepines Inpatient Rehab Admission - Rehab Decision to Admit Inpatient rehab admission?: No
[2018-12-21] MEDS ORDERED: MENTHOL/PHENOL 1 EACH UD MM PRN (11:51)
[2018-12-21] MEDS ORDERED: MAG HYDROX/AL HYDROX/SIMETH 30 ML UNIT-DOSE CUP PO PRN (11:51)
[2018-12-21] MEDS ORDERED: LOPERAMIDE HCL 2 MG CAPSULE PO PRN (11:51)
[2018-12-21] MEDS ORDERED: MAGNESIUM CITRATE 300 ML BOTTLE PO PRN (11:51)
[2018-12-21] MEDS ORDERED: P-EPHED 60MG/TRIPROLIDI 2.5MG TABLET PO PRN (11:51)
[2018-12-21] MEDS ORDERED: guaiFENesin/D-METHORPHAN HB 10 ML UNIT-DOSE CUPS PO PRN (11:51)
[2018-12-21] MEDS ORDERED: IBUPROFEN 400 MG TABLET (FP) PO PRN (11:51)
[2018-12-21] MEDS ORDERED: ACETAMINOPHEN 325 MG TABLET (FP) PO PRN (11:51)
[2018-12-21] MEDS ORDERED: MAGNESIUM HYDROX 2400MG/30ML ORAL SUSPENSION 30 ML CUP PO PRN (11:51)
[2018-12-21] MEDS: chlordiazePOXIDE HCL 25 MG CAPSULE PO PRN (15:07)
[2018-12-21] MEDS ORDERED: INSULIN (NOVOLOG) ASPART 100 UNITS/ML 10ML VIAL ONE ×2 (17:14→22:22)
[2018-12-21] MEDS: chlordiazePOXIDE HCL 25 MG CAPSULE PO SCH ×2 (17:15→22:15)
[2018-12-21] MEDS: INSULIN SLIDING SCALE (NOVOLOG) 1 VIAL SQ SCH ×2 (17:18→22:20)
[2018-12-21] MEDS ORDERED: MELATONIN 5 MG TABLETS PO PRN (22:00)
[2018-12-21] MEDS: GEMFIBROZIL 600 MG TABLET (FP) PO SCH (22:15)
[2018-12-21] MEDS: THIAMINE HCL 100 MG TABLET (FP) PO SCH (22:15)
[2018-12-22] MEDS: chlordiazePOXIDE HCL 25 MG CAPSULE PO SCH ×4 (06:12→22:28)
[2018-12-22] MEDS: INSULIN SLIDING SCALE (NOVOLOG) 1 VIAL SQ SCH ×4 (06:41→22:29)
[2018-12-22] MEDS: PRENATAL VITAMINS W/ FOLIC ACID TABLET (FP) PO SCH (10:20)
[2018-12-22] MEDS: NIFEdipine E.R. 30 MG TABLET (FP) PO SCH (10:21)
[2018-12-22] MEDS: GEMFIBROZIL 600 MG TABLET (FP) PO SCH ×2 (10:21→22:28)
[2018-12-22 10:40] LABS: HEMATOCRIT 42.7 % (35.4-49); MCH 31.7 pg (25.7-33.7); MCHC 35.3 g/dl (32.0-35.9); MEAN CELL VOLUME 89.8 fl (80-96); MEAN PLT VOLUME 10.2 fl (7.5-11.1); PLATELET COUNT 231 K/MM3 (134-434); RBC 4.75 M/mm3 (4.00-5.60); WHITE BLOOD COUNT 5.6 K/mm3 (4.0-10.0)
[2018-12-22 10:55] LABS: ALBUMIN 4.6 g/dl (3.4-5.0); ALK PHOS 84 U/L (45-117); ANION GAP 8 MMOL/L (8-16); BILIRUBIN,TOTAL 0.4 mg/dL (0.2-1); BLOOD UREA NITROGEN 13 mg/dL (7-18); CALCIUM 8.7 mg/dL (8.5-10.1); CHLORIDE 106 mmol/L (98-107); CO2 27 mmol/L (21-32); CREATININE 0.8 mg/dL (0.55-1.3); GLUCOSE,RANDOM 152 mg/dL (74-106); POTASSIUM 4.1 mmol/L (3.5-5.1); SGOT/AST 18 U/L (15-37); SGPT/ALT 23 U/L (13-61); SODIUM 141 mmol/L (136-145); TOT PROT 8.2 g/dl (6.4-8.2)
--- NOTE | 2018-12-22 11:28 | PN ---
S CIWA - CIWA Score Nausea/Vomitin-Mild Nausea/No Vomiting Muscle Tremors: 3 Anxiety: 3 Agitation: 2 Paroxysmal Sweats: 2 Orientation: 0-Oriented Tacttile Disturbances: 0-None Auditory Disturbances: 0-None Visual Disturbances: 0-None Headache: 2-Mild CIWA-Ar Total Score: 13 B[facility] Progress Note (SOAP) Subjective: PATIENT C/O ANXIETY, SHAKES, SWEATING AND HEADACHE. Objective: 12/22/18 11:26 Laboratory Tests 12/21/18 12/21/18 12/21/18 10:18 16:32 22:13 WBC RBC Hgb Hct MCV MCH MCHC RDW Plt Count MPV Sodium Potassium Chloride Carbon Dioxide Anion Gap BUN Creatinine Creat Clearance w eGFR POC Glucometer 156 158 247 Random Glucose Calcium Total Bilirubin AST ALT Alkaline Phosphatase Total Protein Albumin RPR Titer 12/22/18 12/22/18 12/22/18 06:00 06:00 06:00 WBC 5.6 RBC 4.75 Hgb 15.0 Hct 42.7 MCV 89.8 MCH 31.7 MCHC 35.3 RDW 14.0 Plt Count 231 MPV 10.2 D Sodium 141 Potassium 4.1 Chloride 106 Carbon Dioxide 27 Anion Gap 8 BUN 13 Creatinine 0.8 Creat Clearance w eGFR > 60 POC Glucometer Random Glucose 152 H Calcium 8.7 Total Bilirubin 0.4 AST 18 ALT 23 Alkaline Phosphatase 84 Total Protein 8.2 Albumin 4.6 RPR Titer Nonreactive 12/22/18 06:16 WBC RBC Hgb Hct MCV MCH MCHC RDW Plt Count MPV Sodium Potassium Chloride Carbon Dioxide Anion Gap BUN Creatinine Creat Clearance w eGFR POC Glucometer 146 Random Glucose Calcium Total Bilirubin AST ALT Alkaline Phosphatase Total Protein Albumin RPR Titer PE: ALERT AND ORIENTED X 3 SKIN WARM AND +FACIAL MOISTURE EXT FULL ROM, +TREMORS AMB AD DANIEL +ANXIETY Assessment: 12/22/18 11:27 WITHDRAWAL SX Plan: CONTINUE ETOH DETOX ENCOURAGE ORAL FLUIDS CONTINUE TO MONITOR CLINICALLY
[2018-12-22] MEDS ORDERED: INSULIN (NOVOLOG) ASPART 100 UNITS/ML 10ML VIAL ONE ×3 (11:59→22:31)
[2018-12-22] MEDS: chlordiazePOXIDE HCL 25 MG CAPSULE PO PRN (19:06)
[2018-12-22] MEDS: THIAMINE HCL 100 MG TABLET (FP) PO SCH (22:28)
[2018-12-23] MEDS: chlordiazePOXIDE HCL 25 MG CAPSULE PO SCH ×2 (06:16→10:56)
[2018-12-23] MEDS ORDERED: INSULIN (NOVOLOG) ASPART 100 UNITS/ML 10ML VIAL ONE ×3 (07:55→16:54)
[2018-12-23] MEDS: INSULIN SLIDING SCALE (NOVOLOG) 1 VIAL SQ SCH ×4 (08:04→22:14)
[2018-12-23] MEDS: GEMFIBROZIL 600 MG TABLET (FP) PO SCH ×2 (10:50→22:12)
[2018-12-23] MEDS: PRENATAL VITAMINS W/ FOLIC ACID TABLET (FP) PO SCH (10:56)
[2018-12-23] MEDS: NIFEdipine E.R. 30 MG TABLET (FP) PO SCH (10:56)
--- NOTE | 2018-12-23 13:32 | PN ---
S CIWA - CIWA Score Nausea/Vomitin-No Nausea/No Vomiting Muscle Tremors: None Anxiety: 2 Agitation: 1-Slight > Activity Paroxysmal Sweats: 3 Orientation: 0-Oriented Tacttile Disturbances: 2-Mild Itch/Numbness/Burn Auditory Disturbances: 1-Very Mild Visual Disturbances: 0-None Headache: 0-None Present CIWA-Ar Total Score: 9 BHS Progress Note (SOAP) Subjective: Sweating, Stomach Cramping, Constipation. Objective: PATIENT A & O X 3, OBSERVED AMBULATING ON UNIT. IN NO ACUTE DISTRESS. 12/23/18 13:31 Vital Signs Temperature 97.5 F L 12/23/18 13:29 Pulse Rate 85 12/23/18 13:29 Respiratory Rate 16 12/23/18 13:29 Blood Pressure 123/78 12/23/18 13:29 O2 Sat by Pulse Oximetry (%) Laboratory Tests 12/21/18 12/21/18 12/21/18 10:18 16:32 22:13 WBC RBC Hgb Hct MCV MCH MCHC RDW Plt Count MPV Sodium Potassium Chloride Carbon Dioxide Anion Gap BUN Creatinine Creat Clearance w eGFR POC Glucometer 156 158 247 Random Glucose Calcium Total Bilirubin AST ALT Alkaline Phosphatase Total Protein Albumin RPR Titer 12/22/18 12/22/18 12/22/18 06:00 06:00 06:00 WBC 5.6 RBC 4.75 Hgb 15.0 Hct 42.7 MCV 89.8 MCH 31.7 MCHC 35.3 RDW 14.0 Plt Count 231 MPV 10.2 D Sodium 141 Potassium 4.1 Chloride 106 Carbon Dioxide 27 Anion Gap 8 BUN 13 Creatinine 0.8 Creat Clearance w eGFR > 60 POC Glucometer Random Glucose 152 H Calcium 8.7 Total Bilirubin 0.4 AST 18 ALT 23 Alkaline Phosphatase 84 Total Protein 8.2 Albumin 4.6 RPR Titer Nonreactive 12/22/18 12/22/18 12/22/18 06:16 11:55 16:42 WBC RBC Hgb Hct MCV MCH MCHC RDW Plt Count MPV Sodium Potassium Chloride Carbon Dioxide Anion Gap BUN Creatinine Creat Clearance w eGFR POC Glucometer 146 196 204 Random Glucose Calcium Total Bilirubin AST ALT Alkaline Phosphatase Total Protein Albumin RPR Titer 12/22/18 12/23/18 12/23/18 22:24 06:15 11:50 WBC RBC Hgb Hct MCV MCH MCHC RDW Plt Count MPV Sodium Potassium Chloride Carbon Dioxide Anion Gap BUN Creatinine Creat Clearance w eGFR POC Glucometer 254 224 218 Random Glucose Calcium Total Bilirubin AST ALT Alkaline Phosphatase Total Protein Albumin RPR Titer LABS NOTED. Assessment: 12/23/18 13:32 WITHDRAWAL SYMPTOMS. Plan: CONTINUE DETOX. INCREASE DAILY PO FLUID INTAKE.
[2018-12-23] MEDS: chlordiazePOXIDE 5 MG CAPSULE PO SCH ×2 (17:02→22:12)
[2018-12-23] MEDS ORDERED: hydrOXYzine PAMOATE 25 MG CAPSULE (FP) PO PRN (18:25)
[2018-12-23] MEDS: THIAMINE HCL 100 MG TABLET (FP) PO SCH (22:12)
[2018-12-24] MEDS: chlordiazePOXIDE 5 MG CAPSULE PO SCH (05:30)
[2018-12-24] MEDS ORDERED: INSULIN (NOVOLOG) ASPART 100 UNITS/ML 10ML VIAL ONE (08:01)
[2018-12-24] MEDS: INSULIN SLIDING SCALE (NOVOLOG) 1 VIAL SQ SCH (08:06)
[2018-12-24 09:50] VITALS: BP 146/69; PULSE 90; TEMP 97.7
--- NOTE | 2018-12-24 13:56 | PN ---
S Progress Note (SOAP) Subjective: Patient denies current Withdrawal / Detox symptoms and reports that he feels well overall. Objective: PATIENT A & O X 3, OBSERVED AMBULATING ON UNIT. IN NO ACUTE DISTRESS. 12/24/18 13:53 Vital Signs Temperature 97.7 F 12/24/18 09:47 Pulse Rate 90 12/24/18 09:47 Respiratory Rate 18 12/24/18 09:47 Blood Pressure 146/69 12/24/18 09:47 O2 Sat by Pulse Oximetry (%) Laboratory Tests 12/21/18 12/21/18 12/21/18 10:18 16:32 22:13 WBC RBC Hgb Hct MCV MCH MCHC RDW Plt Count MPV Sodium Potassium Chloride Carbon Dioxide Anion Gap BUN Creatinine Creat Clearance w eGFR POC Glucometer 156 158 247 Random Glucose Calcium Total Bilirubin AST ALT Alkaline Phosphatase Total Protein Albumin RPR Titer 12/22/18 12/22/18 12/22/18 06:00 06:00 06:00 WBC 5.6 RBC 4.75 Hgb 15.0 Hct 42.7 MCV 89.8 MCH 31.7 MCHC 35.3 RDW 14.0 Plt Count 231 MPV 10.2 D Sodium 141 Potassium 4.1 Chloride 106 Carbon Dioxide 27 Anion Gap 8 BUN 13 Creatinine 0.8 Creat Clearance w eGFR > 60 POC Glucometer Random Glucose 152 H Calcium 8.7 Total Bilirubin 0.4 AST 18 ALT 23 Alkaline Phosphatase 84 Total Protein 8.2 Albumin 4.6 RPR Titer Nonreactive 12/22/18 12/22/18 12/22/18 06:16 11:55 16:42 WBC RBC Hgb Hct MCV MCH MCHC RDW Plt Count MPV Sodium Potassium Chloride Carbon Dioxide Anion Gap BUN Creatinine Creat Clearance w eGFR POC Glucometer 146 196 204 Random Glucose Calcium Total Bilirubin AST ALT Alkaline Phosphatase Total Protein Albumin RPR Titer 12/22/18 12/23/18 12/23/18 22:24 06:15 11:50 WBC RBC Hgb Hct MCV MCH MCHC RDW Plt Count MPV Sodium Potassium Chloride Carbon Dioxide Anion Gap BUN Creatinine Creat Clearance w eGFR POC Glucometer 254 224 218 Random Glucose Calcium Total Bilirubin AST ALT Alkaline Phosphatase Total Protein Albumin RPR Titer 12/23/18 12/23/18 12/24/18 16:31 21:29 05:32 WBC RBC Hgb Hct MCV MCH MCHC RDW Plt Count MPV Sodium Potassium Chloride Carbon Dioxide Anion Gap BUN Creatinine Creat Clearance w eGFR POC Glucometer 250 225 226 Random Glucose Calcium Total Bilirubin AST ALT Alkaline Phosphatase Total Protein Albumin RPR Titer LABS NOTED. Assessment: 12/24/18 13:54 COMPLETION OF DETOX REGIMEN. Plan: PATIENT REQUESTS TO HAVE EARLY DISCHARGE FROM DETOX UNIT BECAUSE HE REPORTS THAT HE IS FEELING WELL AT THIS TIME AND BECAUSE HE HAS SOME PERSONAL AFFAIRS TO ATTEND TO BEFORE PROCEEDING ON TO HIS NEXT STEP OF AFTERCARE. PATIENT GRANTED EARLY DISCHARGE FROM DETOX UNIT.
--- NOTE | 2018-12-24 14:01 | DS ---
[facility] Detox Discharge Summary Admission Date: 12/21/18 Discharge Date: 12/24/18 - History Present History: Alcohol Dependence, Cannabis Dependence Additional Comments: PATIENT DENIES CURRENT WITHDRAWAL / DETOX SYMPTOMS AND REPORTS THAT HE FEELS WELL OVERALL AT TIME OF DISCHARGE FROM DETOX UNIT. PATIENT INTENDS TO GO ON TO THE [facility] ([place], [place]) FOR AFTERCARE IN THE FEW DAYS AFTER ATTENDING TO SOME PERSONAL MATTERS. PATIENT DECLINED OFFER OF MEDICATION PRESCRIPTION FOR HOME MEDICATION AT TIME OF DISCHARGE FROM DETOX, NOTING THAT HE CURRENTLY HAS ADEQUATE SUPPLIES OF ALL PRESCRIBED HOME MEDICATIONS AT HOME. PATIENT WAS DISCHARGED FROM DETOX UNIT IN STABLE MEDICAL CONDITION. Pertinent Past History: Nicotine Dependence, NIDDM, HTN, Hypercolesterolemia, G.E.R.D., Anxiety, History of Panic Attacks. - Physical Exam Results Vital Signs: Vital Signs Temperature 97.7 F 12/24/18 09:47 Pulse Rate 90 12/24/18 09:47 Respiratory Rate 18 12/24/18 09:47 Blood Pressure 146/69 12/24/18 09:47 O2 Sat by Pulse Oximetry (%) Pertinent Admission Physical Exam Findings: WITHDRAWAL SYMPTOMS. Laboratory Tests 12/21/18 12/21/18 12/21/18 10:18 16:32 22:13 WBC RBC Hgb Hct MCV MCH MCHC RDW Plt Count MPV Sodium Potassium Chloride Carbon Dioxide Anion Gap BUN Creatinine Creat Clearance w eGFR POC Glucometer 156 158 247 Random Glucose Calcium Total Bilirubin AST ALT Alkaline Phosphatase Total Protein Albumin RPR Titer 12/22/18 12/22/18 12/22/18 06:00 06:00 06:00 WBC 5.6 RBC 4.75 Hgb 15.0 Hct 42.7 MCV 89.8 MCH 31.7 MCHC 35.3 RDW 14.0 Plt Count 231 MPV 10.2 D Sodium 141 Potassium 4.1 Chloride 106 Carbon Dioxide 27 Anion Gap 8 BUN 13 Creatinine 0.8 Creat Clearance w eGFR > 60 POC Glucometer Random Glucose 152 H Calcium 8.7 Total Bilirubin 0.4 AST 18 ALT 23 Alkaline Phosphatase 84 Total Protein 8.2 Albumin 4.6 RPR Titer Nonreactive 12/22/18 12/22/18 12/22/18 06:16 11:55 16:42 WBC RBC Hgb Hct MCV MCH MCHC RDW Plt Count MPV Sodium Potassium Chloride Carbon Dioxide Anion Gap BUN Creatinine Creat Clearance w eGFR POC Glucometer 146 196 204 Random Glucose Calcium Total Bilirubin AST ALT Alkaline Phosphatase Total Protein Albumin RPR Titer 12/22/18 12/23/18 12/23/18 22:24 06:15 11:50 WBC RBC Hgb Hct MCV MCH MCHC RDW Plt Count MPV Sodium Potassium Chloride Carbon Dioxide Anion Gap BUN Creatinine Creat Clearance w eGFR POC Glucometer 254 224 218 Random Glucose Calcium Total Bilirubin AST ALT Alkaline Phosphatase Total Protein Albumin RPR Titer 12/23/18 12/23/18 12/24/18 16:31 21:29 05:32 WBC RBC Hgb Hct MCV MCH MCHC RDW Plt Count MPV Sodium Potassium Chloride Carbon Dioxide Anion Gap BUN Creatinine Creat Clearance w eGFR POC Glucometer 250 225 226 Random Glucose Calcium Total Bilirubin AST ALT Alkaline Phosphatase Total Protein Albumin RPR Titer LABS NOTED. - Treatment Hospital Course: Detox Protocol Followed, Detoxed Safely, Responded well, Discharged Condition Good Patient has Accepted a Rehab Referral to: [facility] ([place], [place]). - Medication Discharge Medications: Ambulatory Orders Nifedipine ER [Procardia XL -] 30 mg PO DAILY 30 Days #30 tab.[id number] 10/11/18 metFORMIN HCL [Metformin HCl] 850 mg PO BID #60 tablet 10/11/18 hydrOXYzine HCL [Atarax -] 50 mg PO BID PRN 11/28/18 Gemfibrozil [Lopid -] 600 mg PO BID 12/21/18 - Diagnosis (1) Alcohol dependence with uncomplicated withdrawal Status: Acute (2) Cannabis dependence Status: Chronic (3) DM Diabetes mellitus type 2 Status: Chronic (4) Essential hypertension Status: Chronic (5) Obesity Status: Chronic Qualifiers: Obesity type: unspecified obesity type Obesity classification: adult class 1 (BMI 30 - 34.9) Serious obesity comorbidity presence: unspecified whether serious comorbidity present Body mass index: unspecified BMI Qualified Code( s): E66.9 - Obesity, unspecified - AMA Did Patient Leave Against Medical Advice: No
[2018-12-24] MEDS ORDERED: chlordiazePOXIDE HCL 10 MG CAPSULE PO SCH (17:00)
== END 2018-12-24 09:50 | disposition home or self-care (01) | DRG 897 ==
LOC: YASAS 09:21 → Y6N 10:29
PROVIDERS: ADMIT Surgery; ATTEND Surgery
PROC: HZ2ZZZZ Detoxification Services for Substance Abuse Treatment (ICD-10-PCS; principal; 2018-12-21)
DX: F10.230 Alcohol dependence with withdrawal, uncomplicated (principal); F12.20 Cannabis dependence, uncomplicated; I10 Essential (primary) hypertension; E11.9 Type 2 diabetes mellitus without complications; E78.00 Pure hypercholesterolemia, unspecified; K21.9 Gastro-esophageal reflux disease without esophagitis; E66.9 Obesity, unspecified; Z68.32 Body mass index [BMI] 32.0-32.9, adult; Z87.891 Personal history of nicotine dependence; Z91.013 Allergy to seafood; Z87.438 Personal history of other diseases of male genital organs
CPT/HCPCS: 36415; 80053; 82962; 85027; 86593

== ENCOUNTER 2019-01-09 17:27 | Inpatient (IN) | payer OTHER ==
[2019-01-09 17:52] VITALS: BMI 32.8
--- NOTE | 2019-01-09 21:01 | HP ---
CIWA Score - Admission Criteria OASAS Guidelines: Admission for Medically Managed Detox: Requires at least one of the followin. CIWA greater than 12 2. Seizures within the past 24 hours 3. Delirium tremens within the past 24 hours 4. Hallucinations within the past 24 hours 5. Acute intervention needed for co occurring medical disorder 6. Acute intervention needed for co occurring psychiatric disorder 7. Severe withdrawal that cannot be handled at a lower level of care (continued vomiting, continued diarrhea, abnormal vital signs) requiring intravenous medication and/or fluids 8. Admission ROS [facility] Chief Complaint: alcohol rehabilitation Allergies/Adverse Reactions: Allergies Allergy/AdvReac Type Severity Reaction Status Date / Time fish derived Allergy Severe Rash Verified 12/21/18 09:52 No Known Drug Allergies Allergy Verified 12/21/18 09:52 lactose AdvReac Severe Vomiting Verified 12/21/18 09:52 WHITE MEAT AdvReac Severe Vomiting Uncoded 12/21/18 09:52 History of Present Illness: 53 yo gentleman here for alcohol rehabilitation. Patient completed detox at [facility] 01/03/19 -01/08/19. PMHX: DM II, HTN, anxiety. Denies suicidal / homicidal ideation. Exam Limitations: No Limitations - Ebola screening Have you traveled outside of the country in the last 21 days: No (N) Have you had contact with anyone from an Ebola affected area: No Have you been sick,other than usual withdrawal symptoms: No Do you have a fever: No - Review of Systems Constitutional: No Symptoms Reported EENT: reports: No Symptoms Reported Respiratory: reports: No Symptoms reported Cardiac: reports: No Symptoms Reported GI: reports: No Symptoms Reported : reports: No Symptoms Reported Musculoskeletal: reports: Back Pain (low back radiating on the right lower extremity) Integumentary: reports: No Symptoms Reported Neuro: reports: No Symptoms reported Endocrine: reports: Increased Thirst Hematology: reports: No Symptoms Reported Psychiatric: reports: Orientated x3, Anxious Other Systems: Reviewed and Negative Patient History - Patient Medical History Hx Anemia: No Hx Asthma: No Hx Chronic Obstructive Pulmonary Disease (COPD): No Hx Cancer: No Hx Cardiac Disorders: No Hx Congestive Heart Failure: No Hx Hypertension: Yes Hx Hypercholesterolemia: Yes Hx Pacemaker: No HX Cerebrovascular Accident: No Hx Seizures: No Hx Dementia: No Hx Diabetes: Yes (NIDDM) Hx Gastrointestinal Disorders: Yes (gerd) Hx Liver Disease: No Hx Genitourinary Disorders: No Hx Sexually Transmitted Disorders: Yes (gonorrhea at age 32) Hx Renal Disease (ESRD): No Hx Thyroid Disease: No Hx Human Immunodeficiency Virus (HIV): No (NEGATIVE HX last 10/22) Hx Hepatitis C: No Hx Depression: No (anxiety, gets panic) Hx Suicide Attempt: No Hx Bipolar Disorder: No Hx Schizophrenia: No - Patient Surgical History Past Surgical History: No Hx Neurologic Surgery: No Hx Cataract Extraction: No Hx Cardiac Surgery: No Hx Lung Surgery: No Hx Breast Surgery: No Hx Breast Biopsy: No Hx Abdominal Surgery: No Hx Appendectomy: No Hx Cholecystectomy: No Hx Genitourinary Surgery: No Hx Section: No Hx Orthopedic Surgery: No Hx Hysterectomy: No Anesthesia Reaction: No - PPD History Previous Implant?: No Documented Results: Negative w/proof Date: 11/07/18 Results: 0 mm PPD to be Administered?: Yes - Smoking Cessation Smoking history: Former smoker (stopped seven months ago) Have you smoked in the past 12 months: Yes Aproximately how many cigarettes per day: 2 If you are a former smoker, when did you quit?: 06/2018 Cigars Per Day: 0 Hx Chewing Tobacco Use: No Initiated information on smoking cessation: No - Substance & Tx. History Hx Alcohol Use: Yes Hx Substance Use: Yes Substance Use Type: Alcohol Hx Substance Use Treatment: Yes (Last detox [facility] 01/03/19 -01/08/19) - Substances Abused alcohol Route: Oral Frequency: Daily Amount used: 2 x six pack beer Age of first use: 19 Date of Last Use: 01/03/19 Family Disease History - Family Disease History Family Disease History: Diabetes: Father (no contact - alcohol,sober), Mother ( no contact -alcohol,sober), Other: Father, Brother (seven half brothers), Sister (one) Admission Physical Exam S - Vital Signs Vital Signs: Vital Signs - 24 hr 01/09/19 17:50 Temperature 97.9 F Pulse Rate 80 Respiratory 18 Rate Blood Pressure 140/80 - Physical General Appearance: Yes: Nourished, Appropriately Dressed, Anxious HEENTM: Yes: EOMI, Hearing grossly Normal, Normal ENT Inspection, Normocephalic , Normal Voice, JACKLYN, Pharynx Normal, Tm's normal Respiratory: Yes: Chest Non-Tender, Lungs Clear, Normal Breath Sounds, No Respiratory Distress, No Accessory Muscle Use Neck: Yes: Within Normal Limits Breast: Yes: Breast Exam Deferred Cardiology: Yes: Regular Rhythm, Regular Rate Abdominal: Yes: Normal Bowel Sounds, Non Tender, Soft, Protuberent Genitourinary: Yes: Within Normal Limits Back: Yes: Normal Inspection Musculoskeletal: Yes: full range of Motion, Gait Steady, Pelvis Stable, Back pain (radiating down to the right lower extremity) Extremities: Yes: Normal Capillary Refill, Normal Inspection, Normal Range of Motion, Non-Tender 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: Yes: brick tester II-XII NML intact, Fully Oriented, Alert, Motor Strength 5/5, Depressed Affect Integumentary: Yes: Normal Color, Dry, Warm Lymphatic: Yes: Within Normal Limits - Diagnostic (1) Alcohol dependence Current Visit: Yes Status: Chronic Qualifiers: Substance use status: in remission Qualified Code(s): F10.21 - Alcohol dependence, in remission (2) DM Diabetes mellitus type 2 Current Visit: Yes Status: Chronic (3) Essential hypertension Current Visit: Yes Status: Chronic (4) Obesity Current Visit: Yes Status: Chronic Qualifiers: Obesity type: unspecified obesity type Obesity classification: adult class 1 (BMI 30 - 34.9) Serious obesity comorbidity presence: unspecified whether serious comorbidity present Body mass index: unspecified BMI Qualified Code( s): E66.9 - Obesity, unspecified BHS Breath Alcohol Content Breath Alcohol Content: 0 Urine Drug Screen - Results Drug Screen Negative: No Urine Drug Screen Results: THC-Marijuana, BZO-Benzodiazepines Inpatient Rehab Admission - Rehab Decision to Admit Inpatient rehab admission?: Yes - Initial Determination Are CD services needed?: Yes Free of communicable disease: Yes Not in need of hospitalization: Yes - Rehab Admission Criteria Previous failed treatment: Yes Poor recovery environment: Yes Comorbidities: Yes Lacks judgement: Yes Patient is meeting Inpatient Rehab admission criteria:: Yes
[2019-01-09] MEDS: CYCLOBENZAPRINE HCL 5 MG TABLET PO SCH (23:35)
[2019-01-10] MEDS: metFORMIN HCL 500 MG TABLET (FP) PO SCH ×2 (06:27→16:23)
[2019-01-10] MEDS: CYCLOBENZAPRINE HCL 5 MG TABLET PO SCH ×3 (06:27→22:57)
[2019-01-10] MEDS: NIFEdipine E.R. 30 MG TABLET (FP) PO SCH (09:42)
[2019-01-10] MEDS ORDERED: MENTHOL/PHENOL 1 EACH UD MM PRN (11:01)
[2019-01-10] MEDS ORDERED: ACETAMINOPHEN 325 MG TABLET (FP) PO PRN (11:01)
[2019-01-10] MEDS ORDERED: guaiFENesin 200 MG/10 ML 10 ML UNIT-DOSE CUPS PO PRN (11:01)
[2019-01-10] MEDS ORDERED: IBUPROFEN 400 MG TABLET (FP) PO PRN (11:01)
[2019-01-10] MEDS ORDERED: hydrOXYzine PAMOATE 50 MG CAPSULE (FP) PO PRN (11:01)
[2019-01-10] MEDS ORDERED: MAGNESIUM CITRATE 300 ML BOTTLE PO PRN (11:01)
[2019-01-10] MEDS ORDERED: P-EPHED 60MG/TRIPROLIDI 2.5MG TABLET PO PRN (11:01)
[2019-01-10] MEDS ORDERED: LOPERAMIDE HCL 2 MG CAPSULE PO PRN (11:01)
[2019-01-10] MEDS ORDERED: MAGNESIUM HYDROX 2400MG/30ML ORAL SUSPENSION 30 ML CUP PO PRN (11:01)
[2019-01-10] MEDS ORDERED: MAG HYDROX/AL HYDROX/SIMETH 30 ML UNIT-DOSE CUP PO PRN (11:01)
[2019-01-10] MEDS ORDERED: NICOTINE POLACRILEX 2 MG GUM BUC PRN (11:05)
[2019-01-10 15:56] LABS: HEMATOCRIT 42.4 % (35.4-49); HEMOGLOBIN 14.9 GM/dL (11.7-16.9); MCH 31.2 pg (25.7-33.7); MCHC 35.2 g/dl (32.0-35.9); MEAN CELL VOLUME 88.8 fl (80-96); MEAN PLT VOLUME 9.7 fl (7.5-11.1); PLATELET COUNT 189 K/MM3 (134-434); RBC 4.77 M/mm3 (4.00-5.60); RDW 13.7 % (11.9-15.9); WHITE BLOOD COUNT 5.4 K/mm3 (4.0-10.0)
[2019-01-10 16:02] LABS: ALBUMIN 4.1 g/dl (3.4-5.0); ALK PHOS 86 U/L (45-117); ANION GAP 7 MMOL/L (8-16); BILIRUBIN,TOTAL 0.6 mg/dL (0.2-1); BLOOD UREA NITROGEN 11 mg/dL (7-18); CALCIUM 9.3 mg/dL (8.5-10.1); CHLORIDE 101 mmol/L (98-107); CO2 31 mmol/L (21-32); CREATININE 0.8 mg/dL (0.55-1.3); GLUCOSE,RANDOM 282 mg/dL (74-106); POTASSIUM 4.6 mmol/L (3.5-5.1); SGOT/AST 14 U/L (15-37); SGPT/ALT 25 U/L (13-61); SODIUM 140 mmol/L (136-145); TOT PROT 7.4 g/dl (6.4-8.2)
[2019-01-10] MEDS: THIAMINE HCL 100 MG TABLET (FP) PO SCH (22:57)
[2019-01-11 01:52] LABS: URINE APPEARANCE CLEAR; URINE BILIRUBIN NEGATIVE (<2.0 mg/dL); URINE COLOR LTYELLOW; URINE GLUCOSE (UA) 3+ (NEGATIVE); URINE KETONE TRACE (NEGATIVE); URINE LEUK ESTERASE NEGATIVE (NEGATIVE); URINE NITRITE NEGATIVE (NEGATIVE); URINE PROTEIN NEGATIVE (NEGATIVE); URINE UROBILINOGEN NEGATIVE mg/dL (0.2-1.0)
[2019-01-11] MEDS: CYCLOBENZAPRINE HCL 5 MG TABLET PO SCH ×3 (06:27→21:05)
[2019-01-11] MEDS: metFORMIN HCL 500 MG TABLET (FP) PO SCH ×2 (06:27→16:36)
[2019-01-11] MEDS: NIFEdipine E.R. 30 MG TABLET (FP) PO SCH (09:24)
[2019-01-11] MEDS: PRENATAL VITAMINS W/ FOLIC ACID TABLET (FP) PO SCH (09:24)
[2019-01-11] MEDS: THIAMINE HCL 100 MG TABLET (FP) PO SCH (21:05)
[2019-01-11] MEDS: MELATONIN 5 MG TABLETS PO PRN (21:06)
[2019-01-12] MEDS: metFORMIN HCL 500 MG TABLET (FP) PO SCH ×2 (06:28→16:37)
[2019-01-12] MEDS: CYCLOBENZAPRINE HCL 5 MG TABLET PO SCH ×3 (06:28→22:12)
[2019-01-12] MEDS: NIFEdipine E.R. 30 MG TABLET (FP) PO SCH (09:29)
[2019-01-12] MEDS: PRENATAL VITAMINS W/ FOLIC ACID TABLET (FP) PO SCH (09:29)
[2019-01-12] MEDS: THIAMINE HCL 100 MG TABLET (FP) PO SCH (22:12)
[2019-01-12] MEDS: MELATONIN 5 MG TABLETS PO PRN (22:13)
[2019-01-13] MEDS: metFORMIN HCL 500 MG TABLET (FP) PO SCH ×2 (06:15→16:43)
[2019-01-13] MEDS: CYCLOBENZAPRINE HCL 5 MG TABLET PO SCH ×3 (06:15→21:09)
[2019-01-13] MEDS: PRENATAL VITAMINS W/ FOLIC ACID TABLET (FP) PO SCH (09:52)
[2019-01-13] MEDS: NIFEdipine E.R. 30 MG TABLET (FP) PO SCH (09:52)
[2019-01-13] MEDS: THIAMINE HCL 100 MG TABLET (FP) PO SCH (21:09)
[2019-01-14] MEDS: metFORMIN HCL 500 MG TABLET (FP) PO SCH (06:22)
[2019-01-14] MEDS: CYCLOBENZAPRINE HCL 5 MG TABLET PO SCH (06:22)
[2019-01-14 06:44] VITALS: BP 124/82; PULSE 83; TEMP 98.1
[2019-01-14] MEDS: NIFEdipine E.R. 30 MG TABLET (FP) PO SCH (09:38)
[2019-01-14] MEDS: PRENATAL VITAMINS W/ FOLIC ACID TABLET (FP) PO SCH (09:38)
--- NOTE | 2019-01-14 10:42 | PN ---
[facility] Progress Note Note: PT DECLINED TO CONTINUE WITH REHAB. PT MET WITH HIS COUNSELOR TODAY AND SPOKEN TO BY THIS [employer] LEAD. PT REPORTS HE IS LEAVING FOR TWO REASONS- HIS HOUSING SITUATION AND FAMILY ISSUES. PT HAS BEEN REFERRED TO [facility] ON [address], [place]. PT REPORTS HE HAS OWN PCP, JAVON BEDOLLA AND [employer] [employer], [facility]. REPORTS HE HAS APPOINTMENTS ON 01/24/19 AND 01/30/19. PT REPORTS HE HAS OWN MEDS. ALERT O X 3. DENIES S/H/I. Home Medications Medication Instructions Recorded Metformin HCl [Glucophage] 500 mg PO BID 01/09/19 Nifedipine [Procardia Xl] 30 mg PO DAILY 01/09/19 Vital Signs - 8 hr 01/14/19 01/14/19 03:30 06:43 Temperature 98.1 F Pulse Rate 83 Respiratory 16 18 Rate Blood Pressure 124/82 Laboratory Tests 01/10/19 01/10/19 01/10/19 06:26 13:20 13:30 WBC 5.4 RBC 4.77 Hgb 14.9 Hct 42.4 MCV 88.8 MCH 31.2 MCHC 35.2 RDW 13.7 Plt Count 189 MPV 9.7 Sodium Potassium Chloride Carbon Dioxide Anion Gap BUN Creatinine Creat Clearance w eGFR POC Glucometer 211 Random Glucose Calcium Total Bilirubin AST ALT Alkaline Phosphatase Total Protein Albumin Urine Color Ltyellow Urine Appearance Clear Urine pH 6.0 Ur Specific [place] 1.030 Urine Protein Negative Urine Glucose (UA) 3+ H Urine Ketones Trace H Urine Blood Negative Urine Nitrite Negative Urine Bilirubin Negative Urine Urobilinogen Negative Ur Leukocyte Esterase Negative RPR Titer 01/10/19 01/10/19 01/10/19 13:30 13:30 16:21 WBC RBC Hgb Hct MCV MCH MCHC RDW Plt Count MPV Sodium 140 Potassium 4.6 Chloride 101 Carbon Dioxide 31 Anion Gap 7 L BUN 11 Creatinine 0.8 Creat Clearance w eGFR > 60 POC Glucometer 248 Random Glucose 282 H Calcium 9.3 Total Bilirubin 0.6 AST 14 L ALT 25 Alkaline Phosphatase 86 Total Protein 7.4 Albumin 4.1 Urine Color Urine Appearance Urine pH Ur Specific [place] Urine Protein Urine Glucose (UA) Urine Ketones Urine Blood Urine Nitrite Urine Bilirubin Urine Urobilinogen Ur Leukocyte Esterase RPR Titer Nonreactive 01/11/19 01/11/19 01/12/19 06:26 16:35 06:28 WBC RBC Hgb Hct MCV MCH MCHC RDW Plt Count MPV Sodium Potassium Chloride Carbon Dioxide Anion Gap BUN Creatinine Creat Clearance w eGFR POC Glucometer 196 231 197 Random Glucose Calcium Total Bilirubin AST ALT Alkaline Phosphatase Total Protein Albumin Urine Color Urine Appearance Urine pH Ur Specific [place] Urine Protein Urine Glucose (UA) Urine Ketones Urine Blood Urine Nitrite Urine Bilirubin Urine Urobilinogen Ur Leukocyte Esterase RPR Titer 01/12/19 01/13/19 01/13/19 16:36 06:15 16:43 WBC RBC Hgb Hct MCV MCH MCHC RDW Plt Count MPV Sodium Potassium Chloride Carbon Dioxide Anion Gap BUN Creatinine Creat Clearance w eGFR POC Glucometer 237 216 216 Random Glucose Calcium Total Bilirubin AST ALT Alkaline Phosphatase Total Protein Albumin Urine Color Urine Appearance Urine pH Ur Specific [place] Urine Protein Urine Glucose (UA) Urine Ketones Urine Blood Urine Nitrite Urine Bilirubin Urine Urobilinogen Ur Leukocyte Esterase RPR Titer 01/14/19 06:22 WBC RBC Hgb Hct MCV MCH MCHC RDW Plt Count MPV Sodium Potassium Chloride Carbon Dioxide Anion Gap BUN Creatinine Creat Clearance w eGFR POC Glucometer 172 Random Glucose Calcium Total Bilirubin AST ALT Alkaline Phosphatase Total Protein Albumin Urine Color Urine Appearance Urine pH Ur Specific [place] Urine Protein Urine Glucose (UA) Urine Ketones Urine Blood Urine Nitrite Urine Bilirubin Urine Urobilinogen Ur Leukocyte Esterase RPR Titer NAD MEDICALLY STABLE PLAN;PT SIGNED OUT AMA. REMINDED PT TO FOLLOW UP WITH CD AFTERCARE RECOMMENDED ABOVE. FOLLOW UP WITH PCP FOR MEDICAL MANAGEMENT SCHEDULED.
== END 2019-01-14 10:10 | disposition left against medical advice (07) | DRG 894 ==
LOC: YASAS 17:27 → Y5N 21:07
PROVIDERS: ADMIT Neuromusculoskeletal Medicine & OMM; ATTEND Neuromusculoskeletal Medicine & OMM
PROC: HZ42ZZZ Group Counseling for Substance Abuse Treatment, Cognitive-Behavioral (ICD-10-PCS; principal; 2019-01-09)
DX: F10.20 Alcohol dependence, uncomplicated (principal); F41.9 Anxiety disorder, unspecified; F41.0 Panic disorder [episodic paroxysmal anxiety]; I10 Essential (primary) hypertension; E11.9 Type 2 diabetes mellitus without complications; E78.00 Pure hypercholesterolemia, unspecified; K21.9 Gastro-esophageal reflux disease without esophagitis; E66.9 Obesity, unspecified; Z68.32 Body mass index [BMI] 32.0-32.9, adult; Z86.19 Personal history of other infectious and parasitic diseases; Z79.84 Long term (current) use of oral hypoglycemic drugs
CPT/HCPCS: 36415; 80053; 81003; 82962; 85027; 86593

== ENCOUNTER 2019-02-08 10:59 | Inpatient (IN) | payer OTHER ==
[2019-02-08 11:23] VITALS: BMI 31.8
--- NOTE | 2019-02-08 12:15 | HP ---
"CIWA Score Nausea/Vomitin Muscle Tremors: 4-Moderate,w/Arms Extend Anxiety: 4-Mod. Anxious/Guarded Agitation: 0-Normal Activity Paroxysmal Sweats: No Perspiration Orientation: 0-Oriented Tacttile Disturbances: 2-Mild Itch/Numbness/Burn Auditory Disturbances: 0-None Visual Disturbances: 0-None Headache: 2-Mild CIWA-Ar Total Score: 14 - Admission Criteria OASAS Guidelines: Admission for Medically Managed Detox: Requires at least one of the followin. CIWA greater than 12 2. Seizures within the past 24 hours 3. Delirium tremens within the past 24 hours 4. Hallucinations within the past 24 hours 5. Acute intervention needed for co occurring medical disorder 6. Acute intervention needed for co occurring psychiatric disorder 7. Severe withdrawal that cannot be handled at a lower level of care (continued vomiting, continued diarrhea, abnormal vital signs) requiring intravenous medication and/or fluids 8. Patient presents the following: CIWA greater than 12 Admission Criteria Met: Admission criteria met Admission ROS [facility] - HPI Chief Complaint: I always have the goal and hope to stop drinking - it's bad for my health, it's bad for my organs. Allergies/Adverse Reactions: Allergies Allergy/AdvReac Type Severity Reaction Status Date / Time fish derived Allergy Severe Rash Verified 02/08/19 11:16 No Known Drug Allergies Allergy Verified 02/08/19 11:16 lactose AdvReac Severe Vomiting Verified 02/08/19 11:16 WHITE MEAT AdvReac Severe Vomiting Uncoded 01/09/19 23:00 History of Present Illness: 53 yo gentleman here for detox from alcohol - this is one of multiple admissions for treatment - last here for detox then rehab in Dec 2018 but left rehab AMA. States he did try to go to 12 step meetings but it wasn't enough. No seizures but does have black outs. He is interested in the Vivitrol injections when he leaves. [facility] Search Terms: araceli harden, 1965 Search Date: 02/08/2019 12:12:07 PM The Drug Utilization Report below displays all of the controlled substance prescriptions, if any, that your patient has filled in the last twelve months. The information displayed on this report is compiled from pharmacy submissions to the Department, and accurately reflects the information as submitted by the pharmacies. This report was requested by: Soo Limon | Reference #: [id number] There are no results for the search terms that you entered. Exam Limitations: No Limitations - Ebola screening Have you traveled outside of the country in the last 21 days: No (N) Have you had contact with anyone from an Ebola affected area: No Do you have a fever: No - Review of Systems Constitutional: Loss of Appetite, Malaise, Changes in sleep EENT: reports: No Symptoms Reported Respiratory: reports: No Symptoms reported Cardiac: reports: Chest Tightness (comes and goes) GI: reports: Nausea, Poor Appetite, Indigestion, Abdominal cramping : reports: Frequency Musculoskeletal: reports: No Symptoms Reported Integumentary: reports: No Symptoms Reported Neuro: reports: Headache, Tremors Endocrine: reports: No Symptoms Reported Hematology: reports: No Symptoms Reported Psychiatric: reports: Judgement Intact, Mood/Affect Appropiate, Anxious Other Systems: Reviewed and Negative Patient History - Patient Medical History Hx Anemia: No Hx Asthma: No Hx Chronic Obstructive Pulmonary Disease (COPD): No Hx Cancer: No Hx Cardiac Disorders: Yes Hx Congestive Heart Failure: No Hx Hypertension: Yes (on meds) Hx Hypercholesterolemia: Yes (no meds) Hx Pacemaker: No HX Cerebrovascular Accident: No Hx Seizures: No Hx Dementia: No Hx Diabetes: Yes (on meds (states mbz=616 - 300s)) Hx Gastrointestinal Disorders: No Hx Liver Disease: No Hx Genitourinary Disorders: No Hx Sexually Transmitted Disorders: Yes (treated with PCN shot) Hx Renal Disease (ESRD): No Hx Thyroid Disease: No Hx Human Immunodeficiency Virus (HIV): No (NEGATIVE HX last 10/22) Hx Hepatitis C: No Hx Depression: No Hx Suicide Attempt: No (denies) Hx Bipolar Disorder: No Hx Schizophrenia: No - Patient Surgical History Past Surgical History: No Hx Neurologic Surgery: No Hx Cataract Extraction: No Hx Cardiac Surgery: No Hx Lung Surgery: No Hx Breast Surgery: No Hx Breast Biopsy: No Hx Abdominal Surgery: No Hx Appendectomy: No Hx Cholecystectomy: No Hx Genitourinary Surgery: No Hx Section: No Hx Orthopedic Surgery: No Hx Hysterectomy: No Anesthesia Reaction: No - PPD History Previous Implant?: Yes Documented Results: Negative w/proof Implanted On Prior R Admission?: Yes Date: 11/07/18 Results: 0 mm PPD to be Administered?: No - Reproductive History Patient is a Female of Child Bearing Age (11 -55 yrs old): No (male) - Smoking Cessation Smoking history: Former smoker Have you smoked in the past 12 months: Yes Aproximately how many cigarettes per day: 2 If you are a former smoker, when did you quit?: 06/2018 Cigars Per Day: 0 Hx Chewing Tobacco Use: No Initiated information on smoking cessation: Yes 'Breaking Loose' booklet given: 02/08/19 (give on floor) - Substance & Tx. History Hx Alcohol Use: Yes Hx Substance Use: Yes Substance Use Type: Alcohol, Marijuana, Tranquilizers Hx Substance Use Treatment: Yes (detox, rehab) - Substances abused Alcohol Substance route: Oral Frequency: Daily Amount used: 2 six pack beers (12 oz cans), 1 pt. vodka Age of first use: 19 Date of last use: 02/08/19 Marijuana/Hashish Substance route: Oral Frequency: 3-6 times per week Amount used: $60 Age of first use: 19 Date of last use: 02/08/19 Alprazolam (Xanax) Substance route: Oral Frequency: 1-2 times per week Amount used: three 2mg pills Age of first use: 51 Date of last use: 02/05/19 Family Disease History - Family Disease History Family Disease History: Diabetes: Father (no contact - alcohol,sober), Mother ( no contact -alcohol,sober), Other: Father, Brother (seven half brothers), Sister (one) Admission Physical Exam [facility] - Vital Signs Vital Signs: Vital Signs - 24 hr 02/08/19 11:11 Temperature 98.3 F Pulse Rate 74 Respiratory 18 Rate Blood Pressure 145/91 - Physical General Appearance: Yes: Nourished, Appropriately Dressed, Moderate Distress, Obese, Tremorous, Anxious HEENTM: Yes: EOMI, Hearing grossly Normal, Normocephalic, Normal Voice, Pharynx Normal, Other (no teeth,no dentures) Respiratory: Yes: Normal Breath Sounds, No Respiratory Distress Neck: Yes: Within Normal Limits Breast: Yes: Breast Exam Deferred Cardiology: Yes: Regular Rhythm, Regular Rate Abdominal: Yes: Soft Genitourinary: Yes: Frequency Back: Yes: Normal Inspection Musculoskeletal: Yes: full range of Motion, Gait Steady Extremities: Yes: Normal Range of Motion, Non-Tender, Other (interdigital rash between toes) 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: Yes: Fully Oriented, Alert, Normal Mood/Affect, Normal Response, Numbness Integumentary: Yes: Normal Color, Dry, Warm Lymphatic: Yes: Within Normal Limits - Diagnostic (1) Alcohol dependence with uncomplicated withdrawal Current Visit: Yes Status: Acute (2) Sedative, hypnotic or anxiolytic abuse, uncomplicated Current Visit: Yes Status: Acute (3) Cannabis dependence Current Visit: Yes Status: Chronic (4) DM Diabetes mellitus type 2 Current Visit: Yes Status: Chronic (5) Essential hypertension Current Visit: Yes Status: Chronic (6) Hypercholesterolemia Current Visit: Yes Status: Chronic Comment: NO MEDS (7) Obesity Current Visit: Yes Status: Chronic Qualifiers: Obesity type: unspecified obesity type Obesity classification: adult class 1 (BMI 30 - 34.9) Serious obesity comorbidity presence: unspecified whether serious comorbidity present Body mass index: unspecified BMI Qualified Code( s): E66.9 - Obesity, unspecified (8) Tinea pedis Current Visit: Yes Status: Acute Qualifiers: Laterality: bilateral Qualified Code(s): B35.3 - Tinea pedis Cleared for Admission S - Detox or Rehab [facility] Level of Care: Medically Managed Detox Regimen/Protocol: Librium Breathalyzer - Breathalyzer Breathalyzer: 0 Urine Drug Screen - Test Device Lot number: [id number] Expiration date: 10/04/20 - Control Is test valid?: Yes - Results Drug screen NEGATIVE: No Urine drug screen results: THC-Marijuana, BZO-Benzodiazepines Inpatient Rehab Admission - Rehab Decision to Admit Inpatient rehab admission?: No"
[2019-02-08] MEDS ORDERED: MAG HYDROX/AL HYDROX/SIMETH 30 ML UNIT-DOSE CUP PO PRN (12:32)
[2019-02-08] MEDS ORDERED: MAGNESIUM CITRATE 300 ML BOTTLE PO PRN (12:32)
[2019-02-08] MEDS ORDERED: MAGNESIUM HYDROX 2400MG/30ML ORAL SUSPENSION 30 ML CUP PO PRN (12:32)
[2019-02-08] MEDS ORDERED: IBUPROFEN 400 MG TABLET (FP) PO PRN (12:32)
[2019-02-08] MEDS ORDERED: chlordiazePOXIDE HCL 25 MG CAPSULE PO PRN (12:32)
[2019-02-08] MEDS ORDERED: ACETAMINOPHEN 325 MG TABLET (FP) PO PRN (12:32)
[2019-02-08] MEDS ORDERED: hydrOXYzine PAMOATE 25 MG CAPSULE (FP) PO PRN (12:32)
[2019-02-08] MEDS ORDERED: BISMUTH SUBSALICYLATE 524 MG/30 ML UD PO PRN (12:32)
[2019-02-08] MEDS ORDERED: MENTHOL/PHENOL 1 EACH UD MM PRN (12:32)
[2019-02-08] MEDS ORDERED: METHOCARBAMOL 500 MG TABLET PO PRN (12:32)
[2019-02-08] MEDS ORDERED: MELATONIN 5 MG TABLETS PO PRN (12:32)
[2019-02-08] MEDS ORDERED: chlordiazePOXIDE HCL 25 MG CAPSULE PO ONE (14:30)
[2019-02-08] MEDS: metFORMIN HCL 500 MG TABLET (FP) PO SCH ×2 (15:20→16:44)
[2019-02-08] MEDS: NIFEdipine E.R. 30 MG TABLET (FP) PO SCH (15:20)
[2019-02-08] MEDS: TOLNAFTATE 1% CREAM 15 GM TUBE TP SCH ×2 (15:21→22:53)
[2019-02-08] MEDS ORDERED: INSULIN (NOVOLOG) ASPART 100 UNITS/ML 10ML VIAL ONE (16:40)
[2019-02-08] MEDS: chlordiazePOXIDE HCL 25 MG CAPSULE PO SCH ×2 (16:44→22:46)
[2019-02-08] MEDS: INSULIN SLIDING SCALE (NOVOLOG) 1 VIAL SQ SCH ×2 (16:44→22:53)
[2019-02-08] MEDS: THIAMINE HCL 100 MG TABLET (FP) PO SCH (22:49)
[2019-02-09] MEDS: chlordiazePOXIDE HCL 25 MG CAPSULE PO SCH ×3 (05:41→18:27)
[2019-02-09] MEDS: INSULIN SLIDING SCALE (NOVOLOG) 1 VIAL SQ SCH ×3 (06:30→18:28)
[2019-02-09] MEDS: metFORMIN HCL 500 MG TABLET (FP) PO SCH ×2 (06:30→18:26)
[2019-02-09 09:52] LABS: HEMATOCRIT 42.3 % (35.4-49); HEMOGLOBIN 14.6 GM/dL (11.7-16.9); MCH 30.6 pg (25.7-33.7); MCHC 34.5 g/dl (32.0-35.9); MEAN CELL VOLUME 88.8 fl (80-96); MEAN PLT VOLUME 9.6 fl (7.5-11.1); PLATELET COUNT 174 K/MM3 (134-434); RBC 4.76 M/mm3 (4.00-5.60); RDW 13.8 % (11.9-15.9); WHITE BLOOD COUNT 5.2 K/mm3 (4.0-10.0)
[2019-02-09 10:01] LABS: ALBUMIN 3.4 g/dl (3.4-5.0); ALK PHOS 70 U/L (45-117); ANION GAP 5 MMOL/L (8-16); BILIRUBIN,TOTAL 0.6 mg/dL (0.2-1); BLOOD UREA NITROGEN 7 mg/dL (7-18); CALCIUM 8.3 mg/dL (8.5-10.1); CHLORIDE 102 mmol/L (98-107); CO2 30 mmol/L (21-32); CREATININE 0.6 mg/dL (0.55-1.3); GLUCOSE,RANDOM 202 mg/dL (74-106); POTASSIUM 3.7 mmol/L (3.5-5.1); SGOT/AST 17 U/L (15-37); SGPT/ALT 23 U/L (13-61); SODIUM 137 mmol/L (136-145); TOT PROT 6.7 g/dl (6.4-8.2)
[2019-02-09] MEDS: PRENATAL VITAMINS W/ FOLIC ACID TABLET (FP) PO SCH (10:10)
[2019-02-09] MEDS: TOLNAFTATE 1% CREAM 15 GM TUBE TP SCH (10:10)
[2019-02-09] MEDS: NIFEdipine E.R. 30 MG TABLET (FP) PO SCH (10:15)
--- NOTE | 2019-02-09 12:52 | PN ---
S CIWA - CIWA Score Nausea/Vomitin Muscle Tremors: 4-Moderate,w/Arms Extend Anxiety: 4-Mod. Anxious/Guarded Agitation: 4-Moderately Restless Paroxysmal Sweats: 3 Orientation: 0-Oriented Tacttile Disturbances: 0-None Auditory Disturbances: 0-None Visual Disturbances: 0-None Headache: 0-None Present CIWA-Ar Total Score: 17 [facility] Progress Note (SOAP) Subjective: Tremor, constipated x2 days (wants citroma), abdominal bloating Objective: 02/09/19 12:49 Last Vital Signs Temp Pulse Resp BP Pulse Ox 97.9 F 92 H 18 119/79 02/09/19 09:19 02/09/19 09:19 02/09/19 09:19 02/09/19 09:19 Laboratory Tests 02/08/19 02/08/19 02/09/19 16:20 20:36 05:12 WBC RBC Hgb Hct MCV MCH MCHC RDW Plt Count MPV Sodium Potassium Chloride Carbon Dioxide Anion Gap BUN Creatinine Creat Clearance w eGFR POC Glucometer 313 143 184 Random Glucose Calcium Total Bilirubin AST ALT Alkaline Phosphatase Total Protein Albumin RPR Titer 02/09/19 02/09/19 02/09/19 07:50 07:50 07:50 WBC 5.2 RBC 4.76 Hgb 14.6 Hct 42.3 MCV 88.8 MCH 30.6 MCHC 34.5 RDW 13.8 Plt Count 174 MPV 9.6 Sodium 137 Potassium 3.7 Chloride 102 Carbon Dioxide 30 Anion Gap 5 L BUN 7 Creatinine 0.6 Creat Clearance w eGFR 142.04 POC Glucometer Random Glucose 202 H Calcium 8.3 L Total Bilirubin 0.6 AST 17 ALT 23 Alkaline Phosphatase 70 Total Protein 6.7 Albumin 3.4 RPR Titer Nonreactive 02/09/19 12:06 WBC RBC Hgb Hct MCV MCH MCHC RDW Plt Count MPV Sodium Potassium Chloride Carbon Dioxide Anion Gap BUN Creatinine Creat Clearance w eGFR POC Glucometer 167 Random Glucose Calcium Total Bilirubin AST ALT Alkaline Phosphatase Total Protein Albumin RPR Titer Labs reviewed: hyperglycemia ( patient has DM, on metformin) Assessment: 02/09/19 12:53 Withdrawal symptoms Noted with hyperglycemia due to DMT2 Plan: Continue detox Encouraged PO water hydration DMT2 with hyperglycemia: continue diabetic regimen
[2019-02-10] MEDS: TOLNAFTATE 1% CREAM 15 GM TUBE TP SCH ×3 (00:52→23:55)
[2019-02-10] MEDS: INSULIN SLIDING SCALE (NOVOLOG) 1 VIAL SQ SCH ×5 (00:52→22:15)
[2019-02-10] MEDS: THIAMINE HCL 100 MG TABLET (FP) PO SCH ×2 (00:53→22:15)
[2019-02-10] MEDS: chlordiazePOXIDE HCL 25 MG CAPSULE PO SCH ×3 (00:53→10:05)
[2019-02-10] MEDS ORDERED: INSULIN (NOVOLOG) ASPART 100 UNITS/ML 10ML VIAL ONE ×2 (07:16→11:40)
[2019-02-10] MEDS: metFORMIN HCL 500 MG TABLET (FP) PO SCH ×2 (07:17→16:55)
[2019-02-10] MEDS: NIFEdipine E.R. 30 MG TABLET (FP) PO SCH (10:05)
[2019-02-10] MEDS: PRENATAL VITAMINS W/ FOLIC ACID TABLET (FP) PO SCH (10:05)
--- NOTE | 2019-02-10 14:19 | PN ---
S CIWA - CIWA Score Nausea/Vomitin Muscle Tremors: 3 Anxiety: 2 Agitation: 1-Slight > Activity Paroxysmal Sweats: No Perspiration Orientation: 0-Oriented Tacttile Disturbances: 2-Mild Itch/Numbness/Burn Auditory Disturbances: 2-Mild Harshness/Frighten Visual Disturbances: 1-Very Mild Sensitivity Headache: 0-None Present CIWA-Ar Total Score: 13 [facility] Progress Note (SOAP) Subjective: Anxious, Tremors, Nausea. Objective: PATIENT A & O X 3, OBSERVED AMBULATING ON UNIT. IN NO ACUTE DISTRESS. 02/10/19 14:17 Vital Signs Temperature 98.1 F 02/10/19 13:39 Pulse Rate 80 02/10/19 13:39 Respiratory Rate 18 02/10/19 13:39 Blood Pressure 132/91 02/10/19 13:39 O2 Sat by Pulse Oximetry (%) Laboratory Tests 02/08/19 02/08/19 02/09/19 16:20 20:36 05:12 WBC RBC Hgb Hct MCV MCH MCHC RDW Plt Count MPV Sodium Potassium Chloride Carbon Dioxide Anion Gap BUN Creatinine Creat Clearance w eGFR POC Glucometer 313 143 184 Random Glucose Calcium Total Bilirubin AST ALT Alkaline Phosphatase Total Protein Albumin RPR Titer 02/09/19 02/09/19 02/09/19 07:50 07:50 07:50 WBC 5.2 RBC 4.76 Hgb 14.6 Hct 42.3 MCV 88.8 MCH 30.6 MCHC 34.5 RDW 13.8 Plt Count 174 MPV 9.6 Sodium 137 Potassium 3.7 Chloride 102 Carbon Dioxide 30 Anion Gap 5 L BUN 7 Creatinine 0.6 Creat Clearance w eGFR 142.04 POC Glucometer Random Glucose 202 H Calcium 8.3 L Total Bilirubin 0.6 AST 17 ALT 23 Alkaline Phosphatase 70 Total Protein 6.7 Albumin 3.4 RPR Titer Nonreactive 02/09/19 02/09/19 02/10/19 12:06 16:49 05:34 WBC RBC Hgb Hct MCV MCH MCHC RDW Plt Count MPV Sodium Potassium Chloride Carbon Dioxide Anion Gap BUN Creatinine Creat Clearance w eGFR POC Glucometer 167 280 256 Random Glucose Calcium Total Bilirubin AST ALT Alkaline Phosphatase Total Protein Albumin RPR Titer 02/10/19 11:32 WBC RBC Hgb Hct MCV MCH MCHC RDW Plt Count MPV Sodium Potassium Chloride Carbon Dioxide Anion Gap BUN Creatinine Creat Clearance w eGFR POC Glucometer 350 Random Glucose Calcium Total Bilirubin AST ALT Alkaline Phosphatase Total Protein Albumin RPR Titer LABS NOTED. Assessment: 02/10/19 14:17 WITHDRAWAL SYMPTOMS. HYPERGLYCEMIA. 02/10/19 14:18 Plan: CONTINUE DETOX. INCREASE DAILY PO FLUID INTAKE.
[2019-02-10] MEDS: chlordiazePOXIDE HCL 10 MG CAPSULE PO SCH ×2 (16:55→22:15)
[2019-02-10] MEDS ORDERED: chlordiazePOXIDE HCL 10 MG CAPSULE PO PRN (17:00)
[2019-02-10] MEDS ORDERED: INSULIN SLIDING SCALE (NOVOLOG) 1 VIAL SQ ONE ×2 (17:12→22:17)
[2019-02-11] MEDS: chlordiazePOXIDE HCL 10 MG CAPSULE PO SCH ×2 (06:18→10:04)
[2019-02-11] MEDS: metFORMIN HCL 500 MG TABLET (FP) PO SCH (07:21)
[2019-02-11] MEDS ORDERED: INSULIN SLIDING SCALE (NOVOLOG) 1 VIAL SQ ONE (07:24)
[2019-02-11] MEDS: INSULIN SLIDING SCALE (NOVOLOG) 1 VIAL SQ SCH (07:45)
[2019-02-11 09:31] VITALS: BP 139/94; PULSE 98; TEMP 97.9
--- NOTE | 2019-02-11 09:35 | PN ---
S Progress Note (SOAP) Subjective: alert,no complaint Objective: 02/11/19 09:32 Vital Signs Temperature 97.9 F 02/11/19 09:30 Pulse Rate 98 H 02/11/19 09:30 Respiratory Rate 18 02/11/19 09:30 Blood Pressure 139/94 02/11/19 09:30 O2 Sat by Pulse Oximetry (%) Assessment: 02/11/19 09:32 patient is stable for discharge,has appointment to see pmd and [employer] financial[employer] developer Plan: stable for discharge today,has all medications at home,follow up with after care program as arrangement
--- NOTE | 2019-02-11 09:39 | DS ---
[facility] Detox Discharge Summary Admission Date: 02/08/19 Discharge Date: 02/11/19 - History Present History: Alcohol Dependence, Cannabis Dependence, Sedative Dependence Additional Comments: follow up with after care program as arrangement Pertinent Past History: type 2 dm hypertension - Physical Exam Results Vital Signs: Vital Signs Temperature 97.9 F 02/11/19 09:30 Pulse Rate 98 H 02/11/19 09:30 Respiratory Rate 18 02/11/19 09:30 Blood Pressure 139/94 02/11/19 09:30 O2 Sat by Pulse Oximetry (%) Pertinent Admission Physical Exam Findings: withdrawal symptom Vital Signs Temperature 97.9 F 02/11/19 09:30 Pulse Rate 98 H 02/11/19 09:30 Respiratory Rate 18 02/11/19 09:30 Blood Pressure 139/94 02/11/19 09:30 O2 Sat by Pulse Oximetry (%) Laboratory Last Values WBC 5.2 K/mm3 (4.0-10.0) 02/09/19 07:50 RBC 4.76 M/mm3 (4.00-5.60) 02/09/19 07:50 Hgb 14.6 GM/dL (11.7-16.9) 02/09/19 07:50 Hct 42.3 % (35.4-49) 02/09/19 07:50 MCV 88.8 fl (80-96) 02/09/19 07:50 MCH 30.6 pg (25.7-33.7) 02/09/19 07:50 MCHC 34.5 g/dl (32.0-35.9) 02/09/19 07:50 RDW 13.8 % (11.9-15.9) 02/09/19 07:50 Plt Count 174 K/MM3 (134-434) 02/09/19 07:50 MPV 9.6 fl (7.5-11.1) 02/09/19 07:50 Sodium 137 mmol/L (136-145) 02/09/19 07:50 Potassium 3.7 mmol/L (3.5-5.1) 02/09/19 07:50 Chloride 102 mmol/L (98-107) 02/09/19 07:50 Carbon Dioxide 30 mmol/L (21-32) 02/09/19 07:50 Anion Gap 5 MMOL/L (8-16) L 02/09/19 07:50 BUN 7 mg/dL (7-18) 02/09/19 07:50 Creatinine 0.6 mg/dL (0.55-1.3) 02/09/19 07:50 Creat Clearance w eGFR 142.04 (>60) 02/09/19 07:50 POC Glucometer 259 UNITS (80-120) 02/11/19 07:20 Random Glucose 202 mg/dL (74-106) H 02/09/19 07:50 Calcium 8.3 mg/dL (8.5-10.1) L 02/09/19 07:50 Total Bilirubin 0.6 mg/dL (0.2-1) 02/09/19 07:50 AST 17 U/L (15-37) 02/09/19 07:50 ALT 23 U/L (13-61) 02/09/19 07:50 Alkaline Phosphatase 70 U/L (45-117) 02/09/19 07:50 Total Protein 6.7 g/dl (6.4-8.2) 02/09/19 07:50 Albumin 3.4 g/dl (3.4-5.0) 02/09/19 07:50 RPR Titer Nonreactive (NONREACTIVE) 02/09/19 07:50 - Treatment Hospital Course: Detox Protocol Followed, Detoxed Safely, Responded well, Discharged Condition Good, Rehab Referral Accepted Patient has Accepted a Rehab Referral to: [place] - Medication Discharge Medications: Ambulatory Orders Metformin HCl [Glucophage] 500 mg PO BID 01/09/19 Nifedipine [Procardia Xl] 30 mg PO DAILY 01/09/19 - Diagnosis (1) Alcohol dependence with uncomplicated withdrawal Current Visit: Yes Status: Acute (2) Sedative, hypnotic or anxiolytic abuse, uncomplicated Current Visit: Yes Status: Acute (3) Cannabis dependence Current Visit: Yes Status: Chronic (4) DM Diabetes mellitus type 2 Current Visit: Yes Status: Chronic (5) Essential hypertension Current Visit: Yes Status: Chronic (6) Syncope Current Visit: No Status: Acute Qualifiers: Syncope type: unspecified Qualified Code(s): R55 - Syncope and collapse - AMA Did Patient Leave Against Medical Advice: No
[2019-02-11] MEDS: PRENATAL VITAMINS W/ FOLIC ACID TABLET (FP) PO SCH (10:03)
[2019-02-11] MEDS: NIFEdipine E.R. 30 MG TABLET (FP) PO SCH (10:03)
[2019-02-11] MEDS: TOLNAFTATE 1% CREAM 15 GM TUBE TP SCH (10:04)
[2019-02-11] MEDS ORDERED: chlordiazePOXIDE HCL 10 MG CAPSULE PO SCH (17:00)
== END 2019-02-11 10:26 | disposition home or self-care (01) | DRG 897 ==
LOC: YASAS 10:59 → Y6N 14:22
PROVIDERS: ADMIT Surgery; ATTEND Surgery
PROC: HZ2ZZZZ Detoxification Services for Substance Abuse Treatment (ICD-10-PCS; principal; 2019-02-08)
DX: F10.230 Alcohol dependence with withdrawal, uncomplicated (principal); F13.230 Sedative, hypnotic or anxiolytic dependence with withdrawal, uncomplicated; F12.20 Cannabis dependence, uncomplicated; I10 Essential (primary) hypertension; E11.9 Type 2 diabetes mellitus without complications; Z79.84 Long term (current) use of oral hypoglycemic drugs; E78.00 Pure hypercholesterolemia, unspecified; B35.3 Tinea pedis; E66.9 Obesity, unspecified; Z68.31 Body mass index [BMI] 31.0-31.9, adult; Z86.79 Personal history of other diseases of the circulatory system; Z86.19 Personal history of other infectious and parasitic diseases
CPT/HCPCS: 36415; 80053; 82962; 85027; 86593

== ENCOUNTER 2019-02-27 09:06 | Inpatient (IN) | payer OTHER ==
[2019-02-27 09:29] VITALS: BMI 31.8
--- NOTE | 2019-02-27 10:49 | HP ---
CIWA Score Nausea/Vomitin Muscle Tremors: 2 Anxiety: 2 Agitation: 2 Paroxysmal Sweats: 1-Minimal Palms Moist Orientation: 0-Oriented Tacttile Disturbances: 1-Very Mild Itch/Numbness Auditory Disturbances: 1-Very Mild Visual Disturbances: 0-None Headache: 2-Mild CIWA-Ar Total Score: 13 - Admission Criteria OASAS Guidelines: Admission for Medically Managed Detox: Requires at least one of the followin. CIWA greater than 12 2. Seizures within the past 24 hours 3. Delirium tremens within the past 24 hours 4. Hallucinations within the past 24 hours 5. Acute intervention needed for co occurring medical disorder 6. Acute intervention needed for co occurring psychiatric disorder 7. Severe withdrawal that cannot be handled at a lower level of care (continued vomiting, continued diarrhea, abnormal vital signs) requiring intravenous medication and/or fluids 8. Admission ROS S - HPI Chief Complaint: i need help to stop drinking alcohol and marijuana,also xanax Allergies/Adverse Reactions: Allergies Allergy/AdvReac Type Severity Reaction Status Date / Time fish derived Allergy Severe Rash Verified 02/08/19 11:16 No Known Drug Allergies Allergy Verified 02/08/19 11:16 lactose AdvReac Severe Vomiting Verified 02/08/19 11:16 History of Present Illness: this 53 years old male with alcohol dependence seeking detox,also using marijuana,and xanax multiple admissions in detox,last [facility] 02/08/19 to 02/11/19 but keep relapsing history of hypertension,type 2 dm, syncope alcohol related has been to out patient program but keep relapsing history of anxiety,no medication longest period of sobriety 3 years plan to go to rehab after detox Exam Limitations: No Limitations - Ebola screening Have you traveled outside of the country in the last 21 days: No (N) Have you had contact with anyone from an Ebola affected area: No Do you have a fever: No - Review of Systems Constitutional: Loss of Appetite, Malaise, Night Sweats, Changes in sleep, Weakness EENT: reports: Tearing, Nose Congestion Respiratory: reports: No Symptoms reported Cardiac: reports: No Symptoms Reported GI: reports: Diarrhea, Poor Appetite, Vomiting, Abdominal cramping : reports: No Symptoms Reported Musculoskeletal: reports: Back Pain, Muscle Pain Integumentary: reports: Dryness Neuro: reports: Headache, Tremors Endocrine: reports: No Symptoms Reported Hematology: reports: No Symptoms Reported Psychiatric: reports: No Sypmtoms Reported, Judgement Intact, Mood/Affect Appropiate, Orientated x3, Anxious, other Other Systems: Reviewed and Negative Patient History - Patient Medical History Hx Anemia: No Hx Asthma: No Hx Chronic Obstructive Pulmonary Disease (COPD): No Hx Cancer: No Hx Cardiac Disorders: No Hx Congestive Heart Failure: No Hx Hypertension: Yes (on med) Hx Hypercholesterolemia: Yes (non compliance) Hx Pacemaker: No HX Cerebrovascular Accident: No Hx Seizures: No Hx Dementia: No Hx Diabetes: Yes (on metformin 500 mgs po bid) Hx Gastrointestinal Disorders: No Hx Liver Disease: No Hx Genitourinary Disorders: No Hx Sexually Transmitted Disorders: Yes (gonohrrea 15yrs ago) Hx Renal Disease (ESRD): No Hx Thyroid Disease: No Hx Human Immunodeficiency Virus (HIV): No (NEGATIVE HX last 12/24) Hx Hepatitis C: No Hx Depression: No Hx Suicide Attempt: No Hx Bipolar Disorder: No Hx Schizophrenia: No Other Medical History: no sucidal,no homicidal - Patient Surgical History Past Surgical History: No Hx Neurologic Surgery: No Hx Cataract Extraction: No Hx Cardiac Surgery: No Hx Lung Surgery: No Hx Breast Surgery: No Hx Breast Biopsy: No Hx Abdominal Surgery: No Hx Appendectomy: No Hx Cholecystectomy: No Hx Genitourinary Surgery: No Hx Section: No Hx Orthopedic Surgery: No Hx Hysterectomy: No Anesthesia Reaction: No - PPD History Previous Implant?: Yes Documented Results: Negative w/proof Date: 11/07/18 Results: 0 mm PPD to be Administered?: No - Smoking Cessation Smoking history: Former smoker Have you smoked in the past 12 months: Yes Aproximately how many cigarettes per day: 2 If you are a former smoker, when did you quit?: 06/2018 Cigars Per Day: 0 Hx Chewing Tobacco Use: No Initiated information on smoking cessation: Yes 'Breaking Loose' booklet given: 02/27/19 - Substance & Tx. History Hx Alcohol Use: Yes Hx Substance Use: Yes Substance Use Type: Alcohol, Marijuana - Substances abused Alcohol Substance route: Oral Frequency: Daily Amount used: 1 pt. vodka , 2 six pack beers (12 oz cans), 1 pt. vodka Age of first use: 19 Date of last use: 02/27/19 Marijuana/Hashish Substance route: Oral Frequency: 3-6 times per week Amount used: $60 Age of first use: 19 Date of last use: 02/27/19 Alprazolam (Xanax) Substance route: Oral Frequency: 1-2 times per week Amount used: 3 (2mg)pills Age of first use: 51 Date of last use: 02/05/19 Family Disease History - Family Disease History Family Disease History: Diabetes: Father (no contact - alcohol,sober), Mother ( no contact -alcohol,sober), Other: Father, Brother (seven half brothers), Sister (one) Admission Physical Exam [facility] - Vital Signs Vital Signs: Vital Signs - 24 hr 02/27/19 02/27/19 09:20 09:38 Temperature 98.5 F 98.5 F Pulse Rate 72 72 Respiratory 18 18 Rate Blood Pressure 132/87 132/87 - Physical General Appearance: Yes: Moderate Distress, Tremorous, Irritable, Sweating, Anxious HEENTM: Yes: Normal ENT Inspection, JACKLYN, Pharynx Normal, Other (no teeth,loss denture) Respiratory: Yes: Lungs Clear, Normal Breath Sounds, No Respiratory Distress Neck: Yes: Within Normal Limits, Supple, Trachea in good position Breast: Yes: Within Normal Limits Cardiology: Yes: Within Normal Limits, Regular Rhythm, Regular Rate, S1, S2 Abdominal: Yes: Within Normal Limits, Normal Bowel Sounds, Non Tender, Flat, Soft Genitourinary: Yes: Within Normal Limits Back: Yes: Muscle Spasm Musculoskeletal: Yes: full range of Motion, Back pain, Muscle Pain Extremities: Yes: Within Normal Limits, Normal Range of Motion, Tremors 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: Yes: oral and maxillofacial surgery II-XII NML intact, Alert, Motor Strength 5/5 Integumentary: Yes: Dry Lymphatic: Yes: Within Normal Limits - Diagnostic (1) Alcohol dependence with uncomplicated withdrawal Current Visit: No Status: Acute (2) Sedative, hypnotic or anxiolytic abuse, uncomplicated Current Visit: No Status: Acute (3) Cannabis dependence Current Visit: No Status: Chronic (4) DM Diabetes mellitus type 2 Current Visit: No Status: Chronic (5) Essential hypertension Current Visit: No Status: Chronic (6) Hypercholesterolemia Current Visit: No Status: Chronic Comment: NO MEDS (7) Nicotine dependence Current Visit: No Status: Chronic Qualifiers: Nicotine product type: cigarettes Substance use status: in withdrawal Qualified Code(s): F17.213 - Nicotine dependence, cigarettes, with withdrawal (8) Anxiety Current Visit: No Status: Chronic (9) No natural teeth Current Visit: No Status: Acute Cleared for Admission [facility] - Detox or Rehab [facility] Level of Care: Medically Managed Detox Regimen/Protocol: Librium Breathalyzer - Breathalyzer Breathalyzer: 0 Urine Drug Screen - Test Device Lot number: [id number] Expiration date: 10/04/20 - Control Is test valid?: Yes - Results Drug screen NEGATIVE: No Urine drug screen results: THC-Marijuana, BZO-Benzodiazepines Inpatient Rehab Admission - Rehab Decision to Admit Inpatient rehab admission?: No
[2019-02-27] MEDS ORDERED: BISMUTH SUBSALICYLATE 262 MG/15 ML BTL PO PRN (10:59)
[2019-02-27] MEDS ORDERED: ACETAMINOPHEN 325 MG TABLET (FP) PO PRN ×2 (10:59)
[2019-02-27] MEDS ORDERED: MAGNESIUM CITRATE 300 ML BOTTLE PO PRN (10:59)
[2019-02-27] MEDS ORDERED: chlordiazePOXIDE HCL 25 MG CAPSULE PO PRN (10:59)
[2019-02-27] MEDS ORDERED: MELATONIN 5 MG TABLETS PO PRN (10:59)
[2019-02-27] MEDS ORDERED: MAG HYDROX/AL HYDROX/SIMETH 30 ML UNIT-DOSE CUP PO PRN (10:59)
[2019-02-27] MEDS ORDERED: MAGNESIUM HYDROX 2400MG/30ML ORAL SUSPENSION 30 ML CUP PO PRN (10:59)
[2019-02-27] MEDS ORDERED: METHOCARBAMOL 500 MG TABLET PO PRN (10:59)
[2019-02-27] MEDS ORDERED: hydrOXYzine PAMOATE 25 MG CAPSULE (FP) PO PRN (10:59)
[2019-02-27] MEDS ORDERED: IBUPROFEN 400 MG TABLET (FP) PO PRN (10:59)
[2019-02-27] MEDS ORDERED: MENTHOL/PHENOL 1 EACH UD MM PRN (10:59)
[2019-02-27 14:48] LABS: HEMATOCRIT 41.7 % (35.4-49); HEMOGLOBIN 14.3 GM/dL (11.7-16.9); MCH 30.6 pg (25.7-33.7); MCHC 34.3 g/dl (32.0-35.9); MEAN CELL VOLUME 89.2 fl (80-96); MEAN PLT VOLUME 9.5 fl (7.5-11.1); PLATELET COUNT 222 K/MM3 (134-434); RBC 4.68 M/mm3 (4.00-5.60); WHITE BLOOD COUNT 6.1 K/mm3 (4.0-10.0)
[2019-02-27 15:01] LABS: ALBUMIN 4.3 g/dl (3.4-5.0); ALK PHOS 78 U/L (45-117); ANION GAP 3 MMOL/L (8-16); BILIRUBIN,TOTAL 0.4 mg/dL (0.2-1); BLOOD UREA NITROGEN 12 mg/dL (7-18); CALCIUM 9.2 mg/dL (8.5-10.1); CHLORIDE 105 mmol/L (98-107); CO2 31 mmol/L (21-32); CREATININE 0.8 mg/dL (0.55-1.3); GLUCOSE,RANDOM 208 mg/dL (74-106); POTASSIUM 4.8 mmol/L (3.5-5.1); SGOT/AST 17 U/L (15-37); SGPT/ALT 30 U/L (13-61); SODIUM 140 mmol/L (136-145); TOT PROT 7.8 g/dl (6.4-8.2)
[2019-02-27] MEDS: chlordiazePOXIDE HCL 25 MG CAPSULE PO SCH ×2 (16:50→22:13)
[2019-02-27] MEDS: metFORMIN HCL 500 MG TABLET (FP) PO SCH (16:52)
[2019-02-27] MEDS ORDERED: DOCUSATE SODIUM 50 MG PO SCH (22:00)
[2019-02-27] MEDS: THIAMINE HCL 100 MG TABLET (FP) PO SCH (22:13)
[2019-02-27] MEDS: DOCUSATE SODIUM 100 MG CAPSULE (FP) PO SCH (22:13)
[2019-02-28] MEDS: chlordiazePOXIDE HCL 25 MG CAPSULE PO SCH ×4 (05:34→22:07)
[2019-02-28] MEDS: metFORMIN HCL 500 MG TABLET (FP) PO SCH ×2 (07:30→17:22)
[2019-02-28] MEDS: PRENATAL VITAMINS W/ FOLIC ACID TABLET (FP) PO SCH (10:07)
[2019-02-28] MEDS: DOCUSATE SODIUM 100 MG CAPSULE (FP) PO SCH ×2 (10:07→22:07)
[2019-02-28] MEDS: NIFEdipine E.R. 30 MG TABLET (FP) PO SCH (10:08)
--- NOTE | 2019-02-28 10:36 | PN ---
S CIWA - CIWA Score Nausea/Vomitin-No Nausea/No Vomiting Muscle Tremors: 3 Anxiety: 3 Agitation: 3 Paroxysmal Sweats: 3 Orientation: 0-Oriented Tacttile Disturbances: 0-None Auditory Disturbances: 0-None Visual Disturbances: 0-None Headache: 0-None Present CIWA-Ar Total Score: 12 BHS Progress Note (SOAP) Subjective: sweats shakes agitation irritable Objective: 02/28/19 10:33 Vital Signs Temperature 98.2 F 02/28/19 09:18 Pulse Rate 91 H 02/28/19 09:18 Respiratory Rate 18 02/28/19 09:18 Blood Pressure 138/89 02/28/19 09:18 O2 Sat by Pulse Oximetry (%) Laboratory Tests 02/27/19 02/27/19 02/27/19 10:45 11:00 11:00 WBC 6.1 RBC 4.68 Hgb 14.3 Hct 41.7 MCV 89.2 MCH 30.6 MCHC 34.3 RDW 14.0 Plt Count 222 D MPV 9.5 Sodium 140 Potassium 4.8 Chloride 105 Carbon Dioxide 31 Anion Gap 3 L BUN 12 Creatinine 0.8 Creat Clearance w eGFR 101.92 POC Glucometer 220 Random Glucose 208 H Calcium 9.2 Total Bilirubin 0.4 AST 17 ALT 30 Alkaline Phosphatase 78 Total Protein 7.8 Albumin 4.3 02/27/19 02/28/19 16:38 05:34 WBC RBC Hgb Hct MCV MCH MCHC RDW Plt Count MPV Sodium Potassium Chloride Carbon Dioxide Anion Gap BUN Creatinine Creat Clearance w eGFR POC Glucometer 197 225 Random Glucose Calcium Total Bilirubin AST ALT Alkaline Phosphatase Total Protein Albumin labs noted aaox3 ambulating no acute distress Assessment: 02/28/19 10:50 withdrawal sx Plan: continue detox increase fluids
[2019-02-28] MEDS: THIAMINE HCL 100 MG TABLET (FP) PO SCH (22:07)
[2019-03-01] MEDS: chlordiazePOXIDE HCL 25 MG CAPSULE PO SCH ×2 (05:29→10:08)
[2019-03-01] MEDS: metFORMIN HCL 500 MG TABLET (FP) PO SCH ×2 (06:34→17:30)
--- NOTE | 2019-03-01 09:57 | PN ---
S CIWA - CIWA Score Nausea/Vomitin-No Nausea/No Vomiting Muscle Tremors: 3 Anxiety: 2 Agitation: 2 Paroxysmal Sweats: 2 Orientation: 0-Oriented Tacttile Disturbances: 0-None Auditory Disturbances: 0-None Visual Disturbances: 0-None Headache: 0-None Present CIWA-Ar Total Score: 9 BHS Progress Note (SOAP) Subjective: anxiety sweats Objective: 03/01/19 09:56 Vital Signs Temperature 98.1 F 03/01/19 09:41 Pulse Rate 83 03/01/19 09:41 Respiratory Rate 16 03/01/19 09:41 Blood Pressure 138/75 03/01/19 09:41 O2 Sat by Pulse Oximetry (%) Laboratory Tests 02/27/19 02/27/19 02/27/19 10:45 10:55 11:00 WBC 6.1 RBC 4.68 Hgb 14.3 Hct 41.7 MCV 89.2 MCH 30.6 MCHC 34.3 RDW 14.0 Plt Count 222 D MPV 9.5 Sodium Potassium Chloride Carbon Dioxide Anion Gap BUN Creatinine Creat Clearance w eGFR POC Glucometer 220 Random Glucose Calcium Total Bilirubin AST ALT Alkaline Phosphatase Total Protein Albumin RPR Titer HIV 1&2 Antibody Screen Negative HIV P24 Antigen Negative 02/27/19 02/27/19 02/27/19 11:00 11:00 16:38 WBC RBC Hgb Hct MCV MCH MCHC RDW Plt Count MPV Sodium 140 Potassium 4.8 Chloride 105 Carbon Dioxide 31 Anion Gap 3 L BUN 12 Creatinine 0.8 Creat Clearance w eGFR 101.92 POC Glucometer 197 Random Glucose 208 H Calcium 9.2 Total Bilirubin 0.4 AST 17 ALT 30 Alkaline Phosphatase 78 Total Protein 7.8 Albumin 4.3 RPR Titer Nonreactive HIV 1&2 Antibody Screen HIV P24 Antigen 02/28/19 02/28/19 03/01/19 05:34 16:41 05:33 WBC RBC Hgb Hct MCV MCH MCHC RDW Plt Count MPV Sodium Potassium Chloride Carbon Dioxide Anion Gap BUN Creatinine Creat Clearance w eGFR POC Glucometer 225 249 301 Random Glucose Calcium Total Bilirubin AST ALT Alkaline Phosphatase Total Protein Albumin RPR Titer HIV 1&2 Antibody Screen HIV P24 Antigen aaox3 ambulating no acute distress Assessment: 03/01/19 09:56 mild withdrawal sx Plan: continue detox increase fluids d/c in am
[2019-03-01] MEDS: PRENATAL VITAMINS W/ FOLIC ACID TABLET (FP) PO SCH (10:07)
[2019-03-01] MEDS: NIFEdipine E.R. 30 MG TABLET (FP) PO SCH (10:07)
[2019-03-01] MEDS: DOCUSATE SODIUM 100 MG CAPSULE (FP) PO SCH ×2 (10:08→22:31)
[2019-03-01] MEDS ORDERED: chlordiazePOXIDE HCL 10 MG CAPSULE PO PRN (17:00)
[2019-03-01] MEDS: chlordiazePOXIDE HCL 10 MG CAPSULE PO SCH ×2 (17:40→22:31)
[2019-03-01] MEDS: THIAMINE HCL 100 MG TABLET (FP) PO SCH (22:31)
[2019-03-02] MEDS: chlordiazePOXIDE HCL 10 MG CAPSULE PO SCH (06:07)
[2019-03-02] MEDS: metFORMIN HCL 500 MG TABLET (FP) PO SCH (06:07)
[2019-03-02 06:51] VITALS: BP 146/89; PULSE 67; TEMP 97.2
--- NOTE | 2019-03-02 11:10 | DS ---
[facility] Detox Discharge Summary Admission Date: 02/27/19 Discharge Date: 03/02/19 - History Present History: Alcohol Dependence, Sedative Dependence - Physical Exam Results Vital Signs: Vital Signs Temperature 97.2 F L 03/02/19 06:51 Pulse Rate 67 03/02/19 06:51 Respiratory Rate 18 03/02/19 06:51 Blood Pressure 146/89 03/02/19 06:51 O2 Sat by Pulse Oximetry (%) - Treatment Hospital Course: Detox Protocol Followed, Detoxed Safely, Responded well, Discharged Condition Good - Medication Discharge Medications: Ambulatory Orders Metformin HCl [Glucophage] 500 mg PO BID 01/09/19 Nifedipine [Procardia Xl] 30 mg PO DAILY 01/09/19 Docusate Sodium [Stool Softener] 50 mg PO BID 02/27/19 - AMA Did Patient Leave Against Medical Advice: No
[2019-03-02] MEDS ORDERED: chlordiazePOXIDE HCL 10 MG CAPSULE PO SCH (17:00)
== END 2019-03-02 09:05 | disposition home or self-care (01) | DRG 897 ==
LOC: YASAS 09:06 → Y6N 11:00
PROVIDERS: ADMIT Surgery; ATTEND Surgery
PROC: HZ2ZZZZ Detoxification Services for Substance Abuse Treatment (ICD-10-PCS; principal; 2019-02-27)
DX: F10.230 Alcohol dependence with withdrawal, uncomplicated (principal); F13.230 Sedative, hypnotic or anxiolytic dependence with withdrawal, uncomplicated; F12.20 Cannabis dependence, uncomplicated; F17.213 Nicotine dependence, cigarettes, with withdrawal; F41.9 Anxiety disorder, unspecified; I10 Essential (primary) hypertension; E78.00 Pure hypercholesterolemia, unspecified; E11.9 Type 2 diabetes mellitus without complications; Z79.84 Long term (current) use of oral hypoglycemic drugs; Z86.19 Personal history of other infectious and parasitic diseases; K00.0 Anodontia; Z91.013 Allergy to seafood; Z91.02 Food additives allergy status
CPT/HCPCS: 36415; 80053; 82962; 85027; 86593; 87389

== ENCOUNTER 2019-03-29 09:04 | Inpatient (IN) | payer MEDICARE, OTHER ==
[2019-03-29 10:04] VITALS: BMI 32.4
--- NOTE | 2019-03-29 10:50 | HP ---
CIWA Score Nausea/Vomitin Muscle Tremors: 4-Moderate,w/Arms Extend Anxiety: 4-Mod. Anxious/Guarded Agitation: 1-Slight > Activity Paroxysmal Sweats: 1-Minimal Palms Moist Orientation: 0-Oriented Tacttile Disturbances: 1-Very Mild Itch/Numbness Auditory Disturbances: 0-None Visual Disturbances: 0-None Headache: 2-Mild CIWA-Ar Total Score: 15 - Admission Criteria OASAS Guidelines: Admission for Medically Managed Detox: Requires at least one of the followin. CIWA greater than 12 2. Seizures within the past 24 hours 3. Delirium tremens within the past 24 hours 4. Hallucinations within the past 24 hours 5. Acute intervention needed for co occurring medical disorder 6. Acute intervention needed for co occurring psychiatric disorder 7. Severe withdrawal that cannot be handled at a lower level of care (continued vomiting, continued diarrhea, abnormal vital signs) requiring intravenous medication and/or fluids 8. Patient presents the following: CIWA greater than 12 Admission Criteria Met: Admission criteria met Admission ROS S - HPI Chief Complaint: I was supposed to go to rehab but there was no beds so I relapsed Allergies/Adverse Reactions: Allergies Allergy/AdvReac Type Severity Reaction Status Date / Time lactose AdvReac Severe diarrhea Verified 03/29/19 10:51 melatonin AdvReac Intermediate depressed Verified 03/29/19 10:51 trazodone AdvReac Intermediate depression Verified 03/29/19 10:51 History of Present Illness: 53 yo gentleman here for detox from alcohol and xanax - patient last here , one of multiple admissions for treatment. No seizures, but has had black outs. States he drinks all day, gets very shaky and anxious if he cannot drink. Exam Limitations: No Limitations - Ebola screening Have you traveled outside of the country in the last 21 days: No (N) Have you had contact with anyone from an Ebola affected area: No Do you have a fever: No - Review of Systems Constitutional: Loss of Appetite, Night Sweats, Changes in sleep EENT: reports: No Symptoms Reported Respiratory: reports: No Symptoms reported Cardiac: reports: No Symptoms Reported GI: reports: Nausea, Poor Appetite, Indigestion : reports: Frequency Musculoskeletal: reports: No Symptoms Reported Integumentary: reports: Dryness Neuro: reports: Headache, Tingling (in hands and feet), Tremors Endocrine: reports: No Symptoms Reported Hematology: reports: No Symptoms Reported Psychiatric: reports: Judgement Intact, Mood/Affect Appropiate, Anxious Other Systems: Reviewed and Negative Patient History - Patient Medical History Hx Anemia: No Hx Asthma: No Hx Chronic Obstructive Pulmonary Disease (COPD): No Hx Cancer: No Hx Cardiac Disorders: No Hx Congestive Heart Failure: No Hx Hypertension: Yes (on med) Hx Hypercholesterolemia: Yes (non compliance) Hx Pacemaker: No HX Cerebrovascular Accident: No Hx Seizures: No Hx Dementia: No Hx Diabetes: Yes (on metformin 500 mgs po bid) Hx Gastrointestinal Disorders: No Hx Liver Disease: No Hx Genitourinary Disorders: No Hx Sexually Transmitted Disorders: Yes (gonohrrea 15yrs ago) Hx Renal Disease (ESRD): No Hx Thyroid Disease: No Hx Human Immunodeficiency Virus (HIV): No (NEGATIVE HX last 12/24) Hx Hepatitis C: No Hx Depression: No (anxiety - no meds ) Hx Suicide Attempt: No Hx Bipolar Disorder: No Hx Schizophrenia: No - Patient Surgical History Past Surgical History: No Hx Neurologic Surgery: No Hx Cataract Extraction: No Hx Cardiac Surgery: No Hx Lung Surgery: No Hx Breast Surgery: No Hx Breast Biopsy: No Hx Abdominal Surgery: No Hx Appendectomy: No Hx Cholecystectomy: No Hx Genitourinary Surgery: No Hx Section: No Hx Orthopedic Surgery: No Hx Hysterectomy: No Anesthesia Reaction: No - PPD History Previous Implant?: Yes Documented Results: Negative w/proof Implanted On Prior [facility] Admission?: Yes Date: 11/07/18 Results: 0 mm PPD to be Administered?: No - Reproductive History Patient is a Female of Child Bearing Age (11 -55 yrs old): No - Smoking Cessation Smoking history: Former smoker Have you smoked in the past 12 months: Yes Aproximately how many cigarettes per day: 2 If you are a former smoker, when did you quit?: 06/2018 Cigars Per Day: 0 Hx Chewing Tobacco Use: No Initiated information on smoking cessation: No - Substance & Tx. History Hx Alcohol Use: Yes Hx Substance Use: Yes Substance Use Type: Alcohol, Marijuana, Tranquilizers Hx Substance Use Treatment: Yes - Substances abused Alcohol Substance route: Oral Frequency: 3-6 times per week Amount used: 1 pt. vodka , 2 six pack beers (12 oz cans), 1 pt. vodka Age of first use: 19 Date of last use: 03/29/19 Marijuana/Hashish Substance route: Smoking Frequency: 1-3 times last 30 days Amount used: $50 Age of first use: 19 Date of last use: 03/29/19 Alprazolam (Xanax) Substance route: Oral Frequency: 1-2 times per week Amount used: 3 (2mg)pills Age of first use: 51 Date of last use: 02/05/19 Other Other (specify): Xanax Substance route: Oral Frequency: 1-2 times per week Amount used: 3 sticks Age of first use: 19 Date of last use: 03/27/19 Family Disease History - Family Disease History Family Disease History: Diabetes: Father (no contact - alcohol,sober), Mother ( no contact -alcohol,sober), Other: Father, Brother (seven half brothers), Sister (one - non contact ? etho) Admission Physical Exam [facility] - Vital Signs Vital Signs: Vital Signs - 24 hr 03/29/19 03/29/19 09:53 10:21 Temperature 97.5 F L 97.5 F L Pulse Rate 83 83 Respiratory 20 20 Rate Blood Pressure 125/83 125/83 - Physical General Appearance: Yes: Nourished, Appropriately Dressed, Moderate Distress, Obese, Tremorous, Anxious HEENTM: Yes: EOMI, Hearing grossly Normal, Normocephalic, Normal Voice, Pharynx Normal Respiratory: Yes: Normal Breath Sounds, No Respiratory Distress Neck: Yes: No masses,lesions,Nodules, Supple Breast: Yes: Breast Exam Deferred Cardiology: Yes: Regular Rhythm, Regular Rate Abdominal: Yes: Within Normal Limits Genitourinary: Yes: Frequency Back: Yes: Normal Inspection Musculoskeletal: Yes: full range of Motion, Gait Steady Extremities: Yes: Normal Inspection, Normal Range of Motion, Non-Tender 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: Yes: Fully Oriented, Alert, Motor Strength 5/5, Normal Mood/Affect , Normal Response Integumentary: Yes: Normal Color, Dry, Warm Lymphatic: Yes: Within Normal Limits - Diagnostic (1) Alcohol dependence with uncomplicated withdrawal Current Visit: Yes Status: Acute (2) Sedative, hypnotic or anxiolytic abuse, uncomplicated Current Visit: Yes Status: Acute (3) Anxiety disorder Current Visit: Yes Status: Chronic Qualifiers: Comment: History. (4) Cannabis dependence Current Visit: No Status: Chronic (5) Cocaine dependence Current Visit: No Status: Chronic (6) DM Diabetes mellitus type 2 Current Visit: Yes Status: Chronic Comment: bgm = [id number] (7) Essential hypertension Current Visit: Yes Status: Chronic (8) Hypercholesterolemia Current Visit: Yes Status: Chronic (9) Obesity (BMI 30.0-34.9) Current Visit: Yes Status: Chronic Cleared for Admission S - Detox or Rehab [facility] Level of Care: Medically Managed Detox Regimen/Protocol: Librium Breathalyzer - Breathalyzer Breathalyzer: 0 Urine Drug Screen - Test Device Lot number: [id number] Expiration date: 12/05/20 - Control Is test valid?: Yes - Results Drug screen NEGATIVE: No Urine drug screen results: THC-Marijuana, BZO-Benzodiazepines Inpatient Rehab Admission - Rehab Decision to Admit Inpatient rehab admission?: No
[2019-03-29] MEDS ORDERED: IBUPROFEN 400 MG TABLET (FP) PO PRN (10:55)
[2019-03-29] MEDS ORDERED: BISMUTH SUBSALICYLATE 524 MG/30 ML UD PO PRN (10:55)
[2019-03-29] MEDS ORDERED: METHOCARBAMOL 500 MG TABLET PO PRN (10:55)
[2019-03-29] MEDS ORDERED: MENTHOL/PHENOL 1 EACH UD MM PRN (10:55)
[2019-03-29] MEDS ORDERED: chlordiazePOXIDE HCL 25 MG CAPSULE PO PRN (10:55)
[2019-03-29] MEDS ORDERED: MAGNESIUM CITRATE 300 ML BOTTLE PO PRN (10:55)
[2019-03-29] MEDS ORDERED: MAGNESIUM HYDROX 2400MG/30ML ORAL SUSPENSION 30 ML CUP PO PRN (10:55)
[2019-03-29] MEDS ORDERED: MAG HYDROX/AL HYDROX/SIMETH 30 ML UNIT-DOSE CUP PO PRN (10:55)
[2019-03-29] MEDS ORDERED: ACETAMINOPHEN 325 MG TABLET (FP) PO PRN (10:55)
[2019-03-29] MEDS: NIFEdipine E.R. 30 MG TABLET (FP) PO SCH (11:50)
[2019-03-29] MEDS: metFORMIN HCL 500 MG TABLET (FP) PO SCH ×2 (11:50→21:43)
[2019-03-29] MEDS ORDERED: chlordiazePOXIDE HCL 25 MG CAPSULE PO ONE (12:00)
[2019-03-29] MEDS: chlordiazePOXIDE HCL 25 MG CAPSULE PO SCH ×2 (16:58→22:19)
[2019-03-29] MEDS: INSULIN SLIDING SCALE (NOVOLOG) 1 VIAL SQ SCH ×2 (16:59→22:19)
[2019-03-29] MEDS: diphenhydrAMINE HCL 25 MG CAPSULE (FP) PO SCH (21:43)
[2019-03-29] MEDS: THIAMINE HCL 100 MG TABLET (FP) PO SCH (21:43)
[2019-03-30] MEDS: chlordiazePOXIDE HCL 25 MG CAPSULE PO SCH ×4 (06:20→22:10)
[2019-03-30] MEDS: INSULIN SLIDING SCALE (NOVOLOG) 1 VIAL SQ SCH ×4 (06:23→22:08)
[2019-03-30] MEDS ORDERED: INSULIN SLIDING SCALE (NOVOLOG) 1 VIAL SQ ONE ×3 (06:24→16:59)
--- NOTE | 2019-03-30 10:11 | CONSULT ---
[facility] Psychiatric Consult - Data Date of interview: 03/30/19 Admission source: Self-referred Identifying data: Mr Carrasco is a 53 years old male, unemployed receiving SSI, ling in an SR[place] in the [place] seeking detox treatment for alcohol, benzodiazepine and cannabis Substance Abuse History: Reports history of alcohol, xanax and marijuana use. Refer to addiction counselor's summary for further information Medical History: Significant for hypertension, dyslipidemia and diabetes mellitus and history of gonorrhea Psychiatric History: Patient is well known to this facility from previous admissions. Patient's first psychiatric encounter was in 2013 at [facility] clinic. He was diagnosed with anxiety and started on buspar. He later discontinued Buspar because of adverse-effects. Up to approximaly 10 months ago, he was seing a psychiatrist at [facility] clinic and he was prescribed Atarax 25 mg BID prn which he found effective. Told expert medical writer that he stopped attending because a new psychiatrist refused to prescribed it to him. He only goes there for medical appointment. He admits going to ED for refill of Atarax. Denies previous psychiatric hospitalization or suicidal attempt. At present, reports feeling anxious and sleeping poorly Physical/Sexual Abuse/Trauma History: Denies physical or sexual abuse as well as DV relationship. No service Additional Comment: Reports history of 5 previous misdemeanor arrests on charges of trespassing and marijuana possession. Denies being on probation currently Mental Status Exam - Mental Status Exam Alert and Oriented to: Time, Place, Person Cognitive Function: Fair Patient Appearance: Well Groomed Mood: Anxious Affect: Appropriate Patient Behavior: Cooperative Speech Pattern: Clear Voice Loudness: Normal Thought Process: Intact, Goal Oriented Hallucinations: Denies Suicidal Ideation: Denies Homicidal Ideation: Denies Insight/Judgement: Poor Sleep: Poorly Appetite: Good Muscle strength/Tone: Normal Gait/Station: Normal Psychiatric Findings - Problem List ([place] 1, 2,3) (1) Anxiety disorder Current Visit: Yes Status: Chronic (2) MILLER (generalized anxiety disorder) Current Visit: Yes Status: Ruled-out (3) Substance-induced anxiety disorder Current Visit: Yes Status: Acute (4) Substance-induced sleep disorder Current Visit: Yes Status: Acute (5) Alcohol dependence with uncomplicated withdrawal Current Visit: Yes Status: Acute (6) Sedative, hypnotic or anxiolytic abuse, uncomplicated Current Visit: Yes Status: Acute (7) Cannabis dependence Current Visit: No Status: Acute (8) DM Diabetes mellitus type 2 Current Visit: Yes Status: Chronic Comment: bgm = [id number] (9) Essential hypertension Current Visit: Yes Status: Chronic (10) Hypercholesterolemia Current Visit: Yes Status: Chronic (11) Obesity Current Visit: Yes Status: Chronic Qualifiers: Obesity type: unspecified obesity type Obesity classification: adult class 1 (BMI 30 - 34.9) - Initial Treatment Plan Initial Treatment Plan: 1) Start Benadryl 50 mg po HS and Vistaril 25 mg po Q6 hrs prn for anxiety. 2) Continue inpatient detoxification
[2019-03-30] MEDS: PRENATAL VITAMINS W/ FOLIC ACID TABLET (FP) PO SCH (10:30)
[2019-03-30] MEDS: NIFEdipine E.R. 30 MG TABLET (FP) PO SCH (10:30)
[2019-03-30] MEDS: metFORMIN HCL 500 MG TABLET (FP) PO SCH ×2 (10:30→22:10)
[2019-03-30] MEDS: hydrOXYzine PAMOATE 25 MG CAPSULE (FP) PO PRN (10:32)
--- NOTE | 2019-03-30 10:41 | PN ---
S CIWA - CIWA Score Nausea/Vomitin-No Nausea/No Vomiting Muscle Tremors: 2 Anxiety: 3 Agitation: 3 Paroxysmal Sweats: 1-Minimal Palms Moist Orientation: 1-Uncertain about Date Tacttile Disturbances: 0-None Auditory Disturbances: 0-None Visual Disturbances: 0-None Headache: 1-Very Mild CIWA-Ar Total Score: 11 S Progress Note (SOAP) Subjective: doing well with librium detox protocol resting on bed tired anxiety Objective: 03/30/19 10:43 Vital Signs Temperature 97.1 F L 03/30/19 09:18 Pulse Rate 75 03/30/19 09:18 Respiratory Rate 20 03/30/19 09:18 Blood Pressure 132/84 03/30/19 09:18 O2 Sat by Pulse Oximetry (%) Laboratory Last Values POC Glucometer 216 UNITS (80-120) 03/30/19 06:22 03/30/19 10:43 lab pending Assessment: 03/30/19 10:43 alcohol and benzo withdrawal sx Plan: continue detox
[2019-03-30 10:51] LABS: BILIRUBIN,TOTAL 0.5 mg/dL (0.2-1); CREATININE 0.7 mg/dL (0.55-1.3); POTASSIUM 4.3 mmol/L (3.5-5.1); TOT PROT 7.5 g/dl (6.4-8.2)
[2019-03-30 11:17] LABS: HEMATOCRIT 45.1 % (35.4-49); HEMOGLOBIN 15.2 GM/dL (11.7-16.9); MCH 30.1 pg (25.7-33.7); MCHC 33.8 g/dl (32.0-35.9); MEAN CELL VOLUME 89.1 fl (80-96); MEAN PLT VOLUME 10.3 fl (7.5-11.1); PLATELET COUNT 233 K/MM3 (134-434); RBC 5.06 M/mm3 (4.00-5.60); RDW 14.1 % (11.9-15.9); WHITE BLOOD COUNT 5.3 K/mm3 (4.0-10.0)
[2019-03-30] MEDS: DOCUSATE SODIUM 100 MG CAPSULE (FP) PO SCH ×3 (11:54→22:10)
[2019-03-30] MEDS: THIAMINE HCL 100 MG TABLET (FP) PO SCH (22:10)
[2019-03-30] MEDS: diphenhydrAMINE HCL 25 MG CAPSULE (FP) PO SCH (22:10)
[2019-03-31] MEDS: chlordiazePOXIDE HCL 25 MG CAPSULE PO SCH ×2 (05:07→10:01)
[2019-03-31] MEDS: DOCUSATE SODIUM 100 MG CAPSULE (FP) PO SCH ×3 (05:43→21:54)
[2019-03-31] MEDS: INSULIN SLIDING SCALE (NOVOLOG) 1 VIAL SQ SCH ×4 (07:29→21:12)
[2019-03-31] MEDS: metFORMIN HCL 500 MG TABLET (FP) PO SCH ×3 (10:00→17:08)
[2019-03-31] MEDS: PRENATAL VITAMINS W/ FOLIC ACID TABLET (FP) PO SCH (10:00)
[2019-03-31] MEDS: NIFEdipine E.R. 30 MG TABLET (FP) PO SCH (10:00)
--- NOTE | 2019-03-31 11:00 | PN ---
S CIWA - CIWA Score Nausea/Vomitin-Mild Nausea/No Vomiting Muscle Tremors: 2 Anxiety: 3 Agitation: 2 Paroxysmal Sweats: 1-Minimal Palms Moist Orientation: 0-Oriented Tacttile Disturbances: 0-None Auditory Disturbances: 0-None Visual Disturbances: 0-None Headache: 1-Very Mild CIWA-Ar Total Score: 10 S Progress Note (SOAP) Subjective: diabetes treated with metformin with insulin coverage discuss weight loss and dietary regimen Objective: 03/31/19 11:02 Vital Signs Temperature 97.0 F L 03/31/19 09:17 Pulse Rate 86 03/31/19 09:17 Respiratory Rate 18 03/31/19 09:17 Blood Pressure 129/81 03/31/19 09:17 O2 Sat by Pulse Oximetry (%) Laboratory Last Values WBC 5.3 K/mm3 (4.0-10.0) 03/30/19 07:30 RBC 5.06 M/mm3 (4.00-5.60) 03/30/19 07:30 Hgb 15.2 GM/dL (11.7-16.9) 03/30/19 07:30 Hct 45.1 % (35.4-49) 03/30/19 07:30 MCV 89.1 fl (80-96) 03/30/19 07:30 MCH 30.1 pg (25.7-33.7) 03/30/19 07:30 MCHC 33.8 g/dl (32.0-35.9) 03/30/19 07:30 RDW 14.1 % (11.9-15.9) 03/30/19 07:30 Plt Count 233 K/MM3 (134-434) 03/30/19 07:30 MPV 10.3 fl (7.5-11.1) 03/30/19 07:30 Sodium 138 mmol/L (136-145) 03/30/19 07:30 Potassium 4.3 mmol/L (3.5-5.1) 03/30/19 07:30 Chloride 103 mmol/L (98-107) 03/30/19 07:30 Carbon Dioxide 29 mmol/L (21-32) 03/30/19 07:30 Anion Gap 6 MMOL/L (8-16) L 03/30/19 07:30 BUN 11 mg/dL (7-18) 03/30/19 07:30 Creatinine 0.7 mg/dL (0.55-1.3) 03/30/19 07:30 Est GFR (CKD-EPI)AfAm 126.64 03/30/19 07:30 Est GFR (CKD-EPI)NonAf 109.27 03/30/19 07:30 POC Glucometer 263 UNITS (80-120) 03/31/19 05:06 Random Glucose 203 mg/dL (74-106) H 03/30/19 07:30 Calcium 9.0 mg/dL (8.5-10.1) 03/30/19 07:30 Total Bilirubin 0.5 mg/dL (0.2-1) 03/30/19 07:30 AST 17 U/L (15-37) 03/30/19 07:30 ALT 29 U/L (13-61) 03/30/19 07:30 Alkaline Phosphatase 70 U/L (45-117) 03/30/19 07:30 Total Protein 7.5 g/dl (6.4-8.2) 03/30/19 07:30 Albumin 4.0 g/dl (3.4-5.0) 03/30/19 07:30 RPR Titer Nonreactive (NONREACTIVE) 03/30/19 07:30 lab noted Assessment: 03/31/19 11:02 alcohol and benzo withdrawal sx Plan: continue detox
[2019-03-31] MEDS ORDERED: INSULIN SLIDING SCALE (NOVOLOG) 1 VIAL SQ ONE (12:02)
[2019-03-31] MEDS ORDERED: chlordiazePOXIDE HCL 10 MG CAPSULE PO PRN (17:00)
[2019-03-31] MEDS: chlordiazePOXIDE HCL 10 MG CAPSULE PO SCH ×2 (17:08→22:28)
[2019-03-31] MEDS: hydrOXYzine PAMOATE 25 MG CAPSULE (FP) PO PRN (17:12)
[2019-03-31] MEDS: diphenhydrAMINE HCL 25 MG CAPSULE (FP) PO SCH (21:54)
[2019-03-31] MEDS: THIAMINE HCL 100 MG TABLET (FP) PO SCH (21:54)
[2019-04-01] MEDS: DOCUSATE SODIUM 100 MG CAPSULE (FP) PO SCH (05:24)
[2019-04-01] MEDS: chlordiazePOXIDE HCL 10 MG CAPSULE PO SCH (05:49)
[2019-04-01 05:53] VITALS: BP 120/84; PULSE 81; TEMP 97.9
[2019-04-01] MEDS: metFORMIN HCL 500 MG TABLET (FP) PO SCH (06:36)
[2019-04-01] MEDS: INSULIN SLIDING SCALE (NOVOLOG) 1 VIAL SQ SCH (07:55)
--- NOTE | 2019-04-01 13:07 | DS ---
[facility] Detox Discharge Summary Admission Date: 03/29/19 Discharge Date: 04/01/19 - History Present History: Alcohol Dependence, Sedative Dependence Additional Comments: 53 years old male admitted on 03/29/19 for alcohol and benzo withdrawal stabilization feeling better today preferring to begin rehab today patient is alert no acute distress denies suicidal ideation aftercare [facility] Pertinent Past History: encourage bring in medication list and lab report to aftercare appointment recommend the patient to follow up with primary care endocrainologist and registered nurse practitioner for serum sugar and bp monitoring - Physical Exam Results Vital Signs: Vital Signs Temperature 97.9 F 04/01/19 05:52 Pulse Rate 81 04/01/19 05:52 Respiratory Rate 18 04/01/19 05:52 Blood Pressure 120/84 04/01/19 05:52 O2 Sat by Pulse Oximetry (%) Pertinent Admission Physical Exam Findings: alcohol and benzo withdrawal sx Laboratory Last Values WBC 5.3 K/mm3 (4.0-10.0) 03/30/19 07:30 RBC 5.06 M/mm3 (4.00-5.60) 03/30/19 07:30 Hgb 15.2 GM/dL (11.7-16.9) 03/30/19 07:30 Hct 45.1 % (35.4-49) 03/30/19 07:30 MCV 89.1 fl (80-96) 03/30/19 07:30 MCH 30.1 pg (25.7-33.7) 03/30/19 07:30 MCHC 33.8 g/dl (32.0-35.9) 03/30/19 07:30 RDW 14.1 % (11.9-15.9) 03/30/19 07:30 Plt Count 233 K/MM3 (134-434) 03/30/19 07:30 MPV 10.3 fl (7.5-11.1) 03/30/19 07:30 Sodium 138 mmol/L (136-145) 03/30/19 07:30 Potassium 4.3 mmol/L (3.5-5.1) 03/30/19 07:30 Chloride 103 mmol/L (98-107) 03/30/19 07:30 Carbon Dioxide 29 mmol/L (21-32) 03/30/19 07:30 Anion Gap 6 MMOL/L (8-16) L 03/30/19 07:30 BUN 11 mg/dL (7-18) 03/30/19 07:30 Creatinine 0.7 mg/dL (0.55-1.3) 03/30/19 07:30 Est GFR (CKD-EPI)AfAm 126.64 03/30/19 07:30 Est GFR (CKD-EPI)NonAf 109.27 03/30/19 07:30 POC Glucometer 235 UNITS (80-120) 04/01/19 05:23 Random Glucose 203 mg/dL (74-106) H 03/30/19 07:30 Calcium 9.0 mg/dL (8.5-10.1) 03/30/19 07:30 Total Bilirubin 0.5 mg/dL (0.2-1) 03/30/19 07:30 AST 17 U/L (15-37) 03/30/19 07:30 ALT 29 U/L (13-61) 03/30/19 07:30 Alkaline Phosphatase 70 U/L (45-117) 03/30/19 07:30 Total Protein 7.5 g/dl (6.4-8.2) 03/30/19 07:30 Albumin 4.0 g/dl (3.4-5.0) 03/30/19 07:30 RPR Titer Nonreactive (NONREACTIVE) 03/30/19 07:30 lab noted - Treatment Hospital Course: Detox Protocol Followed, Detoxed Safely, Responded well, Discharged Condition Good, Rehab Referral Accepted Patient has Accepted a Rehab Referral to: [facility] - Medication Discharge Medications: Ambulatory Orders Metformin HCl [Glucophage] 500 mg PO BID@0700,1630 01/09/19 Nifedipine [Procardia Xl] 60 mg PO DAILY 01/09/19 Docusate Sodium [Stool Softener] 100 mg PO BID 02/27/19 Cholecalciferol (Vitamin D3) [Vitamin D -] 400 unit PO DAILY 03/29/19 - Diagnosis (1) Alcohol dependence with uncomplicated withdrawal Status: Acute (2) Sedative, hypnotic or anxiolytic abuse, uncomplicated Status: Acute (3) DM Diabetes mellitus type 2 Status: Chronic (4) Essential hypertension Status: Chronic (5) Nicotine dependence Status: Acute Qualifiers: Nicotine product type: cigarettes Substance use status: in withdrawal Qualified Code(s): F17.213 - Nicotine dependence, cigarettes, with withdrawal (6) Obesity Status: Chronic Qualifiers: Obesity type: unspecified obesity type Obesity classification: adult class 1 (BMI 30 - 34.9) (7) Substance induced mood disorder Status: Suspected - AMA Did Patient Leave Against Medical Advice: No
[2019-04-01] MEDS ORDERED: chlordiazePOXIDE HCL 10 MG CAPSULE PO SCH (17:00)
== END 2019-04-01 09:11 | disposition home or self-care (01) | DRG 897 ==
LOC: YASAS 09:04 → Y3N 11:05
PROVIDERS: ADMIT Surgery; ATTEND Surgery
PROC: HZ2ZZZZ Detoxification Services for Substance Abuse Treatment (ICD-10-PCS; principal; 2019-03-29)
DX: F10.230 Alcohol dependence with withdrawal, uncomplicated (principal); F19.280 Other psychoactive substance dependence with psychoactive substance-induced anxiety disorder; F19.282 Other psychoactive substance dependence with psychoactive substance-induced sleep disorder; F13.230 Sedative, hypnotic or anxiolytic dependence with withdrawal, uncomplicated; F12.20 Cannabis dependence, uncomplicated; F17.213 Nicotine dependence, cigarettes, with withdrawal; F19.24 Other psychoactive substance dependence with psychoactive substance-induced mood disorder; F41.1 Generalized anxiety disorder; F41.8 Other specified anxiety disorders; I10 Essential (primary) hypertension; E78.00 Pure hypercholesterolemia, unspecified; E11.9 Type 2 diabetes mellitus without complications; Z79.84 Long term (current) use of oral hypoglycemic drugs; E66.9 Obesity, unspecified; Z68.32 Body mass index [BMI] 32.0-32.9, adult; Z86.19 Personal history of other infectious and parasitic diseases
CPT/HCPCS: 36415; 80053; 82962; 85027; 86593

== ENCOUNTER 2019-04-09 14:30 | Inpatient (IN) | payer MEDICARE, OTHER ==
[2019-04-09 17:31] VITALS: BMI 32.4
--- NOTE | 2019-04-09 19:54 | HP ---
CIWA Score - Admission Criteria OASAS Guidelines: Admission for Medically Managed Detox: Requires at least one of the followin. CIWA greater than 12 2. Seizures within the past 24 hours 3. Delirium tremens within the past 24 hours 4. Hallucinations within the past 24 hours 5. Acute intervention needed for co occurring medical disorder 6. Acute intervention needed for co occurring psychiatric disorder 7. Severe withdrawal that cannot be handled at a lower level of care (continued vomiting, continued diarrhea, abnormal vital signs) requiring intravenous medication and/or fluids 8. Admission ROS BHS - HPI Chief Complaint: here for alcohol rehab. Pt was here for detox- left on 04/01/19, relapsed and went to [facility] for detox on 04/06, discharged today and is here for rehab. 53 yo with h/o HTN, DM, high cholesterol, anxiety. PCP Radha at [facility]. Pt lives in hotel room. Pt gets SSD alcohol- 2 cases of beer/day, no seizures MJ- smokes occ DUR- no controlled substances Allergies/Adverse Reactions: Allergies Allergy/AdvReac Type Severity Reaction Status Date / Time lactose AdvReac Severe diarrhea Verified 04/09/19 17:19 melatonin AdvReac Intermediate depressed Verified 04/09/19 17:19 trazodone AdvReac Intermediate depression Verified 04/09/19 17:19 - Ebola screening Have you traveled outside of the country in the last 21 days: No (N) Have you had contact with anyone from an Ebola affected area: No Do you have a fever: No Patient History - Patient Medical History Hx Anemia: No Hx Asthma: No Hx Chronic Obstructive Pulmonary Disease (COPD): No Hx Cancer: No Hx Cardiac Disorders: No Hx Congestive Heart Failure: No Hx Hypertension: Yes (on med) Hx Hypercholesterolemia: Yes (non compliance) Hx Pacemaker: No HX Cerebrovascular Accident: No Hx Seizures: No Hx Dementia: No Hx Diabetes: Yes (on metformin 500 mgs po bid) Hx Gastrointestinal Disorders: No Hx Liver Disease: No Hx Genitourinary Disorders: No Hx Sexually Transmitted Disorders: Yes (gonohrrea 15yrs ago) Hx Renal Disease (ESRD): No Hx Thyroid Disease: No Hx Human Immunodeficiency Virus (HIV): No (NEGATIVE HX last 12/24) Hx Hepatitis C: No Hx Depression: No (anxiety - no meds ) Hx Suicide Attempt: No Hx Bipolar Disorder: No Hx Schizophrenia: No - Patient Surgical History Past Surgical History: No Hx Neurologic Surgery: No Hx Cataract Extraction: No Hx Cardiac Surgery: No Hx Lung Surgery: No Hx Breast Surgery: No Hx Breast Biopsy: No Hx Abdominal Surgery: No Hx Appendectomy: No Hx Cholecystectomy: No Hx Genitourinary Surgery: No Hx Section: No Hx Orthopedic Surgery: No Hx Hysterectomy: No Anesthesia Reaction: No - PPD History Date: 11/07/18 Results: 0 mm - Smoking Cessation Smoking history: Former smoker Have you smoked in the past 12 months: Yes Aproximately how many cigarettes per day: 0 If you are a former smoker, when did you quit?: 06/2018 Cigars Per Day: 0 Hx Chewing Tobacco Use: No Initiated information on smoking cessation: Yes 'Breaking Loose' booklet given: 04/09/19 - Substance & Tx. History Substance Use Type: Alcohol, Marijuana - Substances abused Alcohol Substance route: Oral Frequency: 3-6 times per week Amount used: 1 pt. vodka , 2 six pack beers (12 oz cans), 1 pt. vodka Age of first use: 19 Date of last use: 04/06/19 Marijuana/Hashish Substance route: Smoking Frequency: 1-3 times last 30 days Amount used: $50 Age of first use: 19 Date of last use: 04/06/19 Alprazolam (Xanax) Substance route: Oral Frequency: 1-2 times per week Amount used: 3 (2mg)pills Age of first use: 51 Date of last use: 02/05/19 Other Other (specify): Xanax Substance route: Oral Frequency: 1-2 times per week Amount used: 3 sticks Age of first use: 19 Date of last use: 04/04/19 Family Disease History - Family Disease History Family Disease History: Diabetes: Father (no contact - alcohol,sober), Mother ( no contact -alcohol,sober), Other: Father, Brother (seven half brothers), Sister (one - non contact ? etho) Admission Physical Exam BHS - Vital Signs Vital Signs: Vital Signs - 24 hr 04/09/19 17:17 Temperature 98.4 F Pulse Rate 90 Respiratory 20 Rate Blood Pressure 141/98 Breathalyzer - Breathalyzer Breathalyzer: 0 Urine Drug Screen - Test Device Lot number: [id number] Expiration date: 01/02/21 - Control Is test valid?: Yes - Results Drug screen NEGATIVE: No Urine drug screen results: THC-Marijuana, BZO-Benzodiazepines Inpatient Rehab Admission - Rehab Decision to Admit Inpatient rehab admission?: Yes - Initial Determination Are CD services needed?: Yes Free of communicable disease: Yes Not in need of hospitalization: Yes - Rehab Admission Criteria Previous failed treatment: Yes Poor recovery environment: Yes Comorbidities: Yes Lacks judgement: Yes Patient is meeting Inpatient Rehab admission criteria:: Yes (continued alcohol use)
[2019-04-09] MEDS ORDERED: MAGNESIUM HYDROX 2400MG/30ML ORAL SUSPENSION 30 ML CUP PO PRN (20:01)
[2019-04-09] MEDS ORDERED: IBUPROFEN 400 MG TABLET (FP) PO PRN (20:01)
[2019-04-09] MEDS ORDERED: MAG HYDROX/AL HYDROX/SIMETH 30 ML UNIT-DOSE CUP PO PRN (20:01)
[2019-04-09] MEDS ORDERED: P-EPHED 60MG/TRIPROLIDI 2.5MG TABLET PO PRN (20:01)
[2019-04-09] MEDS ORDERED: MAGNESIUM CITRATE 300 ML BOTTLE PO PRN (20:01)
[2019-04-09] MEDS ORDERED: guaiFENesin 200 MG/10 ML 10 ML UNIT-DOSE CUPS PO PRN (20:01)
[2019-04-09] MEDS ORDERED: LOPERAMIDE HCL 2 MG CAPSULE PO PRN (20:01)
[2019-04-09] MEDS ORDERED: ACETAMINOPHEN 325 MG TABLET (FP) PO PRN (20:01)
[2019-04-09] MEDS ORDERED: MENTHOL/PHENOL 1 EACH UD MM PRN (20:01)
[2019-04-09] MEDS: THIAMINE HCL 100 MG TABLET (FP) PO SCH (21:52)
[2019-04-09] MEDS: diphenhydrAMINE HCL 25 MG CAPSULE (FP) PO PRN (21:52)
[2019-04-09] MEDS: OMEGA-3 ACID ETHYL ESTERS (FATTY-ACIDS) 1 GM CAPSULE (FP) PO SCH (21:53)
[2019-04-09] MEDS ORDERED: MELATONIN 5 MG TABLETS PO PRN (22:00)
[2019-04-10 03:25] LABS: URINE APPEARANCE CLEAR; URINE BILIRUBIN NEGATIVE (NEGATIVE); URINE COLOR YELLOW; URINE GLUCOSE (UA) 3+ (NEGATIVE); URINE KETONE TRACE (NEGATIVE); URINE LEUK ESTERASE NEGATIVE (NEGATIVE); URINE NITRITE NEGATIVE (NEGATIVE); URINE PROTEIN TRACE (NEGATIVE)
[2019-04-10] MEDS ORDERED: metFORMIN HCL 500 MG TABLET (FP) PO SCH (07:00)
[2019-04-10] MEDS: PRENATAL VITAMINS W/ FOLIC ACID TABLET (FP) PO SCH (09:51)
[2019-04-10] MEDS: CHOLECALCIFEROL (VIT D3) 400 UNIT (10 MCG) TABLET PO SCH (09:51)
[2019-04-10] MEDS: NIFEdipine E.R 60 MG TABLET (UD) PO SCH (09:51)
[2019-04-10] MEDS: OMEGA-3 ACID ETHYL ESTERS (FATTY-ACIDS) 1 GM CAPSULE (FP) PO SCH ×2 (09:51→21:19)
[2019-04-10] MEDS: DOCUSATE SODIUM 100 MG CAPSULE (FP) PO PRN (09:53)
[2019-04-10] MEDS ORDERED: NIFEdipine E.R. 30 MG TABLET (FP) PO SCH (10:00)
[2019-04-10 14:40] LABS: MCH 30.3 pg (25.7-33.7); MCHC 34.1 g/dl (32.0-35.9); MEAN CELL VOLUME 88.7 fl (80-96); MEAN PLT VOLUME 10.7 fl (7.5-11.1); PLATELET COUNT 200 K/MM3 (134-434); RBC 4.96 M/mm3 (4.00-5.60); RDW 14.4 % (11.9-15.9); WHITE BLOOD COUNT 4.5 K/mm3 (4.0-10.0)
[2019-04-10 14:57] LABS: ALBUMIN 4.2 g/dl (3.4-5.0); BILIRUBIN,TOTAL 0.5 mg/dL (0.2-1); CALCIUM 9.2 mg/dL (8.5-10.1); CREATININE 0.8 mg/dL (0.55-1.3); POTASSIUM 4.4 mmol/L (3.5-5.1); TOT PROT 7.4 g/dl (6.4-8.2)
[2019-04-10] MEDS: INSULIN SLIDING SCALE (NOVOLOG) 1 VIAL SQ SCH (17:25)
[2019-04-10] MEDS: THIAMINE HCL 100 MG TABLET (FP) PO SCH (21:17)
[2019-04-10] MEDS: diphenhydrAMINE HCL 25 MG CAPSULE (FP) PO PRN (21:18)
[2019-04-11] MEDS ORDERED: INSULIN SLIDING SCALE (NOVOLOG) 1 VIAL SQ SCH (07:00)
[2019-04-11] MEDS: INSULIN SLIDING SCALE (NOVOLOG) 1 VIAL SQ SCH ×2 (07:04→17:01)
[2019-04-11] MEDS ORDERED: PT OWN MED DRAWER 7, Y5N ONE ×2 (08:52→20:38)
[2019-04-11] MEDS: NIFEdipine E.R 60 MG TABLET (UD) PO SCH (09:44)
[2019-04-11] MEDS: PRENATAL VITAMINS W/ FOLIC ACID TABLET (FP) PO SCH (09:44)
[2019-04-11] MEDS: OMEGA-3 ACID ETHYL ESTERS (FATTY-ACIDS) 1 GM CAPSULE (FP) PO SCH ×2 (09:44→21:59)
[2019-04-11] MEDS: CHOLECALCIFEROL (VIT D3) 400 UNIT (10 MCG) TABLET PO SCH (09:44)
[2019-04-11] MEDS ORDERED: INSULIN (NOVOLOG) ASPART 100 UNITS/ML 10ML VIAL ONE (17:01)
[2019-04-11] MEDS: diphenhydrAMINE HCL 25 MG CAPSULE (FP) PO PRN (21:59)
[2019-04-11] MEDS: THIAMINE HCL 100 MG TABLET (FP) PO SCH (21:59)
[2019-04-12] MEDS: INSULIN SLIDING SCALE (NOVOLOG) 1 VIAL SQ SCH ×2 (06:22→16:47)
[2019-04-12] MEDS ORDERED: PT OWN MED DRAWER 7, Y5N ONE ×2 (08:55→19:45)
[2019-04-12] MEDS: OMEGA-3 ACID ETHYL ESTERS (FATTY-ACIDS) 1 GM CAPSULE (FP) PO SCH ×2 (10:09→21:05)
[2019-04-12] MEDS: CHOLECALCIFEROL (VIT D3) 400 UNIT (10 MCG) TABLET PO SCH (10:10)
[2019-04-12] MEDS: NIFEdipine E.R 60 MG TABLET (UD) PO SCH (10:10)
[2019-04-12] MEDS: PRENATAL VITAMINS W/ FOLIC ACID TABLET (FP) PO SCH (10:10)
[2019-04-12] MEDS: DOCUSATE SODIUM 100 MG CAPSULE (FP) PO PRN (10:11)
[2019-04-12] MEDS: THIAMINE HCL 100 MG TABLET (FP) PO SCH (21:06)
[2019-04-12] MEDS: diphenhydrAMINE HCL 25 MG CAPSULE (FP) PO PRN (21:06)
[2019-04-13] MEDS: INSULIN SLIDING SCALE (NOVOLOG) 1 VIAL SQ SCH ×2 (06:22→16:45)
[2019-04-13] MEDS ORDERED: PT OWN MED DRAWER 7, Y5N ONE ×2 (08:54→19:38)
[2019-04-13] MEDS: PRENATAL VITAMINS W/ FOLIC ACID TABLET (FP) PO SCH (09:35)
[2019-04-13] MEDS: CHOLECALCIFEROL (VIT D3) 400 UNIT (10 MCG) TABLET PO SCH (09:35)
[2019-04-13] MEDS: NIFEdipine E.R 60 MG TABLET (UD) PO SCH (09:35)
[2019-04-13] MEDS: OMEGA-3 ACID ETHYL ESTERS (FATTY-ACIDS) 1 GM CAPSULE (FP) PO SCH ×2 (09:35→21:48)
[2019-04-13] MEDS: DOCUSATE SODIUM 100 MG CAPSULE (FP) PO PRN (09:36)
[2019-04-13] MEDS: diphenhydrAMINE HCL 25 MG CAPSULE (FP) PO PRN (21:48)
[2019-04-13] MEDS: THIAMINE HCL 100 MG TABLET (FP) PO SCH (21:48)
[2019-04-14] MEDS: INSULIN SLIDING SCALE (NOVOLOG) 1 VIAL SQ SCH (06:52)
[2019-04-14 07:38] VITALS: BP 129/78; PULSE 81; TEMP 96.4
[2019-04-14] MEDS ORDERED: PT OWN MED DRAWER 7, Y5N ONE (08:55)
--- NOTE | 2019-04-14 09:28 | PN ---
[facility] Progress Note (SOAP) Subjective: Patient is leaving today AMA. States he needs to go to [place] [employer] to [employer] a government document. Objective: A+O x3, no neurological deficits noted, heart sounds regular, lungs clear, abd obese, but soft and non-tender, +BS. 04/14/19 09:23 CBC, BMP 04/10/19 08:15 04/10/19 08:15 Laboratory Tests 04/09/19 04/10/19 04/10/19 20:39 00:05 06:20 WBC RBC Hgb Hct MCV MCH MCHC RDW Plt Count MPV Sodium Potassium Chloride Carbon Dioxide Anion Gap BUN Creatinine Est GFR (CKD-EPI)AfAm Est GFR (CKD-EPI)NonAf POC Glucometer 226 256 Random Glucose Calcium Total Bilirubin AST ALT Alkaline Phosphatase Total Protein Albumin Urine Color Yellow Urine Appearance Clear Urine pH 5.0 Ur Specific [place] 1.036 H Urine Protein Trace Urine Glucose (UA) 3+ H Urine Ketones Trace H Urine Blood Negative Urine Nitrite Negative Urine Bilirubin Negative Urine Urobilinogen 1.0 Ur Leukocyte Esterase Negative RPR Titer 04/10/19 04/10/19 04/10/19 08:15 08:15 08:15 WBC 4.5 RBC 4.96 Hgb 15.0 Hct 44.0 MCV 88.7 MCH 30.3 MCHC 34.1 RDW 14.4 Plt Count 200 MPV 10.7 Sodium 138 Potassium 4.4 Chloride 102 Carbon Dioxide 28 Anion Gap 9 BUN 15 Creatinine 0.8 Est GFR (CKD-EPI)AfAm 119.88 Est GFR (CKD-EPI)NonAf 103.43 POC Glucometer Random Glucose 294 H Calcium 9.2 Total Bilirubin 0.5 AST 19 ALT 27 Alkaline Phosphatase 83 Total Protein 7.4 Albumin 4.2 Urine Color Urine Appearance Urine pH Ur Specific [place] Urine Protein Urine Glucose (UA) Urine Ketones Urine Blood Urine Nitrite Urine Bilirubin Urine Urobilinogen Ur Leukocyte Esterase RPR Titer Nonreactive 04/10/19 04/11/19 04/11/19 16:52 06:19 16:58 WBC RBC Hgb Hct MCV MCH MCHC RDW Plt Count MPV Sodium Potassium Chloride Carbon Dioxide Anion Gap BUN Creatinine Est GFR (CKD-EPI)AfAm Est GFR (CKD-EPI)NonAf POC Glucometer 319 212 269 Random Glucose Calcium Total Bilirubin AST ALT Alkaline Phosphatase Total Protein Albumin Urine Color Urine Appearance Urine pH Ur Specific [place] Urine Protein Urine Glucose (UA) Urine Ketones Urine Blood Urine Nitrite Urine Bilirubin Urine Urobilinogen Ur Leukocyte Esterase RPR Titer 04/12/19 04/12/19 04/13/19 06:14 16:45 06:02 WBC RBC Hgb Hct MCV MCH MCHC RDW Plt Count MPV Sodium Potassium Chloride Carbon Dioxide Anion Gap BUN Creatinine Est GFR (CKD-EPI)AfAm Est GFR (CKD-EPI)NonAf POC Glucometer 217 255 243 Random Glucose Calcium Total Bilirubin AST ALT Alkaline Phosphatase Total Protein Albumin Urine Color Urine Appearance Urine pH Ur Specific [place] Urine Protein Urine Glucose (UA) Urine Ketones Urine Blood Urine Nitrite Urine Bilirubin Urine Urobilinogen Ur Leukocyte Esterase RPR Titer 04/13/19 04/14/19 16:44 06:05 WBC RBC Hgb Hct MCV MCH MCHC RDW Plt Count MPV Sodium Potassium Chloride Carbon Dioxide Anion Gap BUN Creatinine Est GFR (CKD-EPI)AfAm Est GFR (CKD-EPI)NonAf POC Glucometer 315 208 Random Glucose Calcium Total Bilirubin AST ALT Alkaline Phosphatase Total Protein Albumin Urine Color Urine Appearance Urine pH Ur Specific [place] Urine Protein Urine Glucose (UA) Urine Ketones Urine Blood Urine Nitrite Urine Bilirubin Urine Urobilinogen Ur Leukocyte Esterase RPR Titer 04/14/19 09:27 Assessment: Medically stable for discharge Discharge dx; Obesity MILLER Cocaine Dependence DM2 04/14/19 09:24 Plan: Patient will get aftercare at [facility], will receive Medical care from [facility], Dr. Olivo. Prescriptions transmitted to patient's pharmacy.
[2019-04-14] MEDS: PRENATAL VITAMINS W/ FOLIC ACID TABLET (FP) PO SCH (09:36)
[2019-04-14] MEDS: OMEGA-3 ACID ETHYL ESTERS (FATTY-ACIDS) 1 GM CAPSULE (FP) PO SCH (09:36)
[2019-04-14] MEDS: CHOLECALCIFEROL (VIT D3) 400 UNIT (10 MCG) TABLET PO SCH (09:36)
[2019-04-14] MEDS: NIFEdipine E.R 60 MG TABLET (UD) PO SCH (09:36)
== END 2019-04-14 09:55 | disposition left against medical advice (07) | DRG 894 ==
LOC: YASAS 14:30 → Y3W 20:17
PROVIDERS: ADMIT Neuromusculoskeletal Medicine & OMM; ATTEND Neuromusculoskeletal Medicine & OMM
PROC: HZ42ZZZ Group Counseling for Substance Abuse Treatment, Cognitive-Behavioral (ICD-10-PCS; principal; 2019-04-09)
DX: F10.20 Alcohol dependence, uncomplicated (principal); F13.20 Sedative, hypnotic or anxiolytic dependence, uncomplicated; F14.20 Cocaine dependence, uncomplicated; F12.20 Cannabis dependence, uncomplicated; F41.1 Generalized anxiety disorder; E11.9 Type 2 diabetes mellitus without complications; Z79.84 Long term (current) use of oral hypoglycemic drugs; E78.00 Pure hypercholesterolemia, unspecified; E66.9 Obesity, unspecified; Z68.32 Body mass index [BMI] 32.0-32.9, adult
CPT/HCPCS: 36415; 80053; 81003; 82962; 85027; 86593

== ENCOUNTER 2019-05-09 15:48 | Inpatient (IN) | payer MEDICARE, OTHER ==
[2019-05-09 16:38] VITALS: BMI 31.8
--- NOTE | 2019-05-09 18:20 | HP ---
CIWA Score Nausea/Vomitin Muscle Tremors: 1-None Visible, but [place] Anxiety: 3 Agitation: 0-Normal Activity Paroxysmal Sweats: 3 Orientation: 0-Oriented Tacttile Disturbances: 1-Very Mild Itch/Numbness Auditory Disturbances: 0-None Visual Disturbances: 0-None Headache: 0-None Present CIWA-Ar Total Score: 11 - Admission Criteria OASAS Guidelines: Admission for Medically Managed Detox: Requires at least one of the followin. CIWA greater than 12 2. Seizures within the past 24 hours 3. Delirium tremens within the past 24 hours 4. Hallucinations within the past 24 hours 5. Acute intervention needed for co occurring medical disorder 6. Acute intervention needed for co occurring psychiatric disorder 7. Severe withdrawal that cannot be handled at a lower level of care (continued vomiting, continued diarrhea, abnormal vital signs) requiring intravenous medication and/or fluids 8. Admission ROS S - HPI Allergies/Adverse Reactions: Allergies Allergy/AdvReac Type Severity Reaction Status Date / Time lactose AdvReac Severe diarrhea Verified 05/09/19 16:24 melatonin AdvReac Intermediate depressed Verified 05/09/19 16:24 trazodone AdvReac Intermediate depression Verified 05/09/19 16:24 History of Present Illness: patient here requesting detox , latest use today , current symptoms as above , reports etoh use 8 cans x 12 / 0z , 1 pint vodka 2 x/week since 2010 . Prior sobriety x 3 years while in outpt [facility] . Denies seizures . cannabis use - 1 x/ month utox + thx , + bzo xanax - 1 stick/day PMHX ; HTN , DM2 since 2002 , anxiety PShx : denies PSych : denies SI / HI tobacco ; denies , quit 1 yr ago Exam Limitations: No Limitations - Ebola screening Have you traveled outside of the country in the last 21 days: No Have you had contact with anyone from an Ebola affected area: No - Review of Systems Constitutional: See HPI EENT: reports: See HPI Respiratory: reports: No Symptoms reported Cardiac: reports: No Symptoms Reported GI: reports: No Symptoms Reported : reports: No Symptoms Reported Musculoskeletal: reports: No Symptoms Reported Integumentary: reports: No Symptoms Reported Neuro: reports: See HPI Endocrine: reports: See HPI Psychiatric: reports: Orientated x3, Anxious Patient History - Patient Medical History Hx Anemia: No Hx Asthma: No Hx Chronic Obstructive Pulmonary Disease (COPD): No Hx Cancer: No Hx Cardiac Disorders: No Hx Congestive Heart Failure: No Hx Hypertension: Yes Hx Hypercholesterolemia: Yes (non compliance) Hx Pacemaker: No HX Cerebrovascular Accident: No Hx Seizures: No Hx Dementia: No Hx Diabetes: Yes Hx Gastrointestinal Disorders: No Hx Liver Disease: No Hx Genitourinary Disorders: No Hx Sexually Transmitted Disorders: No Hx Renal Disease (ESRD): No Hx Thyroid Disease: No Hx Human Immunodeficiency Virus (HIV): No (NEGATIVE HX last 12/24) Hx Hepatitis C: No Hx Depression: No Hx Suicide Attempt: No Hx Bipolar Disorder: No Hx Schizophrenia: No - Patient Surgical History Past Surgical History: No Hx Neurologic Surgery: No Hx Cataract Extraction: No Hx Cardiac Surgery: No Hx Lung Surgery: No Hx Breast Surgery: No Hx Breast Biopsy: No Hx Abdominal Surgery: No Hx Appendectomy: No Hx Cholecystectomy: No Hx Genitourinary Surgery: No Hx Section: No Hx Orthopedic Surgery: No Hx Hysterectomy: No Anesthesia Reaction: No - PPD History Date: 11/07/18 Results: 0 mm - Smoking Cessation Smoking history: Former smoker Have you smoked in the past 12 months: Yes Aproximately how many cigarettes per day: 0 If you are a former smoker, when did you quit?: 06/2018 Cigars Per Day: 0 Hx Chewing Tobacco Use: No Initiated information on smoking cessation: No - Substances abused Alcohol Substance route: Oral Frequency: 3-6 times per week Amount used: 1 pt. vodka , 2 six pack beers (12 oz cans), 1 pt. vodka Age of first use: 19 Date of last use: 05/09/19 Marijuana/Hashish Substance route: Smoking Frequency: 1-3 times last 30 days Amount used: $50 Age of first use: 19 Date of last use: 04/07/19 Alprazolam (Xanax) Substance route: Oral Frequency: 1-2 times per week Amount used: 3 (2mg)pills Age of first use: 51 Date of last use: 02/05/19 Other Other (specify): Xanax Substance route: Oral Frequency: 3-6 times per week Amount used: 3 sticks Age of first use: 19 Date of last use: 03/20/19 Family Disease History - Family Disease History Family Disease History: Diabetes: Father (no contact - alcohol,sober), Mother ( no contact -alcohol,sober), Other: Father, Brother (seven half brothers), Sister (one - non contact ? etho) Admission Physical Exam BHS - Vital Signs Vital Signs: Vital Signs - 24 hr 05/09/19 05/09/19 16:24 18:06 Temperature 98.7 F 98.7 F Pulse Rate 86 86 Respiratory 20 20 Rate Blood Pressure 133/84 133/84 - Physical General Appearance: Yes: Mild Distress, Anxious HEENTM: Yes: Normocephalic, Normal Voice, Other (edentulous) Respiratory: Yes: Normal Breath Sounds, No Respiratory Distress, No Accessory Muscle Use Neck: Yes: No masses,lesions,Nodules, Trachea in good position Cardiology: Yes: Regular Rhythm, Regular Rate, S1, S2 Abdominal: Yes: Non Tender, Soft Musculoskeletal: Yes: Gait Steady Extremities: Yes: Normal Range of Motion, Non-Tender 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: Yes: Fully Oriented, Alert, Motor Strength 5/5 Integumentary: Yes: Warm - Diagnostic (1) Alcohol dependence with uncomplicated withdrawal Current Visit: Yes Status: Acute (2) Cannabis dependence Current Visit: Yes Status: Chronic Breathalyzer - Breathalyzer Breathalyzer: 0 Urine Drug Screen - Test Device Lot number: [id number] Expiration date: 01/02/21 - Control Is test valid?: Yes - Results Drug screen NEGATIVE: No Urine drug screen results: THC-Marijuana, BZO-Benzodiazepines Inpatient Rehab Admission - Rehab Decision to Admit Inpatient rehab admission?: No
[2019-05-09] MEDS ORDERED: hydrOXYzine PAMOATE 25 MG CAPSULE (FP) PO PRN (18:27)
[2019-05-09] MEDS ORDERED: MENTHOL/PHENOL 1 EACH UD MM PRN (18:27)
[2019-05-09] MEDS ORDERED: MAG HYDROX/AL HYDROX/SIMETH 30 ML UNIT-DOSE CUP PO PRN (18:27)
[2019-05-09] MEDS ORDERED: MAGNESIUM HYDROX 2400MG/30ML ORAL SUSPENSION 30 ML CUP PO PRN (18:27)
[2019-05-09] MEDS ORDERED: MAGNESIUM CITRATE 300 ML BOTTLE PO PRN (18:27)
[2019-05-09] MEDS ORDERED: IBUPROFEN 400 MG TABLET (FP) PO PRN (18:27)
[2019-05-09] MEDS ORDERED: ACETAMINOPHEN 325 MG TABLET (FP) PO PRN ×2 (18:27)
[2019-05-09] MEDS ORDERED: BISMUTH SUBSALICYLATE 524 MG/30 ML UD PO PRN (18:27)
[2019-05-09] MEDS ORDERED: metFORMIN HCL 500 MG TABLET (FP) PO SCH (18:30)
[2019-05-09] MEDS: diazePAM 5 MG TABLET PO PRN (20:00)
[2019-05-09] MEDS: NIFEdipine E.R 60 MG TABLET (UD) PO SCH (20:00)
[2019-05-09] MEDS: OMEGA-3 ACID ETHYL ESTERS (FATTY-ACIDS) 1 GM CAPSULE (FP) PO SCH (22:14)
[2019-05-09] MEDS: diazePAM 5 MG TABLET PO ONE ×2 (22:14→22:15)
[2019-05-09] MEDS: THIAMINE HCL 100 MG TABLET (FP) PO SCH (22:14)
[2019-05-09] MEDS: diazePAM 5 MG TABLET PO SCH (23:41)
[2019-05-10] MEDS: diazePAM 5 MG TABLET PO SCH ×3 (05:58→23:09)
[2019-05-10] MEDS: INSULIN SLIDING SCALE (NOVOLOG) 1 VIAL SQ SCH ×2 (06:58→18:29)
[2019-05-10] MEDS: PRENATAL VITAMINS W/ FOLIC ACID TABLET (FP) PO SCH (10:15)
[2019-05-10] MEDS: NIFEdipine E.R 60 MG TABLET (UD) PO SCH (10:16)
[2019-05-10] MEDS: OMEGA-3 ACID ETHYL ESTERS (FATTY-ACIDS) 1 GM CAPSULE (FP) PO SCH ×2 (10:16→22:55)
[2019-05-10 11:12] LABS: BILIRUBIN,TOTAL 0.4 mg/dL (0.2-1); BLOOD UREA NITROGEN 10.9 mg/dL (7-18); CALCIUM 8.9 mg/dL (8.5-10.1); CREATININE 0.7 mg/dL (0.55-1.3); TOT PROT 7.3 g/dl (6.4-8.2)
[2019-05-10 11:18] LABS: HEMATOCRIT 43.7 % (35.4-49); HEMOGLOBIN 15.1 GM/dL (11.7-16.9); MCH 30.8 pg (25.7-33.7); MCHC 34.5 g/dl (32.0-35.9); MEAN CELL VOLUME 89.2 fl (80-96); MEAN PLT VOLUME 10.3 fl (7.5-11.1); RDW 14.1 % (11.9-15.9); WHITE BLOOD COUNT 5.7 K/mm3 (4.0-10.0)
[2019-05-10 12:21] LABS: PLATELET COUNT 204 K/MM3 (134-434)
--- NOTE | 2019-05-10 12:37 | PN ---
S CIWA - CIWA Score Nausea/Vomitin-No Nausea/No Vomiting Muscle Tremors: 3 Anxiety: 3 Agitation: 1-Slight > Activity Paroxysmal Sweats: 2 Orientation: 0-Oriented Tacttile Disturbances: 2-Mild Itch/Numbness/Burn Auditory Disturbances: 0-None Visual Disturbances: 0-None Headache: 0-None Present CIWA-Ar Total Score: 11 BHS Progress Note (SOAP) Subjective: Tremors, Anxious, Sweating. Objective: PATIENT A & O X 3, OBSERVED AMBULATING ON UNIT UNASSISTED. IN NO ACUTE DISTRESS. 05/10/19 12:35 Vital Signs Temperature 97.4 F L 05/10/19 09:35 Pulse Rate 81 05/10/19 09:35 Respiratory Rate 17 05/10/19 09:35 Blood Pressure 127/82 05/10/19 09:35 O2 Sat by Pulse Oximetry (%) Laboratory Tests 05/10/19 05/10/19 05/10/19 05:57 08:00 08:00 WBC 5.7 RBC 4.90 Hgb 15.1 Hct 43.7 MCV 89.2 MCH 30.8 MCHC 34.5 RDW 14.1 Plt Count 204 MPV 10.3 Sodium 141 Potassium 4.0 Chloride 106 Carbon Dioxide 27 Anion Gap 8 BUN 10.9 Creatinine 0.7 Est GFR (CKD-EPI)AfAm 126.64 Est GFR (CKD-EPI)NonAf 109.27 POC Glucometer 219 Random Glucose 223 H Calcium 8.9 Total Bilirubin 0.4 AST 16 ALT 31 Alkaline Phosphatase 80 Total Protein 7.3 Albumin 4.0 RPR Titer 05/10/19 08:00 WBC RBC Hgb Hct MCV MCH MCHC RDW Plt Count MPV Sodium Potassium Chloride Carbon Dioxide Anion Gap BUN Creatinine Est GFR (CKD-EPI)AfAm Est GFR (CKD-EPI)NonAf POC Glucometer Random Glucose Calcium Total Bilirubin AST ALT Alkaline Phosphatase Total Protein Albumin RPR Titer Nonreactive LABS NOTED. Assessment: 05/10/19 12:36 WITHDRAWAL SYMPTOMS. HYPERGLYCEMIA (PATIENT HAS HISTORY OF DM). Plan: CONTINUE DETOX. INCREASE DAILY PO WATER INTAKE.
[2019-05-10] MEDS: CHOLECALCIFEROL (VIT D3) 400 UNIT (10 MCG) TABLET PO SCH (14:55)
[2019-05-10] MEDS: THIAMINE HCL 100 MG TABLET (FP) PO SCH (22:55)
[2019-05-11] MEDS: diazePAM 5 MG TABLET PO SCH ×2 (05:25→17:00)
[2019-05-11] MEDS: INSULIN SLIDING SCALE (NOVOLOG) 1 VIAL SQ SCH ×2 (07:17→16:59)
[2019-05-11] MEDS: NIFEdipine E.R 60 MG TABLET (UD) PO SCH (10:20)
[2019-05-11] MEDS: PRENATAL VITAMINS W/ FOLIC ACID TABLET (FP) PO SCH (10:20)
[2019-05-11] MEDS: OMEGA-3 ACID ETHYL ESTERS (FATTY-ACIDS) 1 GM CAPSULE (FP) PO SCH ×2 (10:20→22:27)
[2019-05-11] MEDS: diazePAM 5 MG TABLET PO PRN ×3 (10:22→22:41)
--- NOTE | 2019-05-11 11:12 | PN ---
[facility] CIWA - CIWA Score Nausea/Vomitin-No Nausea/No Vomiting Muscle Tremors: 2 Anxiety: 2 Agitation: 2 Paroxysmal Sweats: 1-Minimal Palms Moist Orientation: 0-Oriented Tacttile Disturbances: 0-None Auditory Disturbances: 0-None Visual Disturbances: 0-None Headache: 0-None Present CIWA-Ar Total Score: 7 S Progress Note (SOAP) Subjective: feeling better today less tremor no anxiety discuss aftercare at [facility] with staff Objective: 05/11/19 11:13 Vital Signs Temperature 98 F 05/11/19 09:33 Pulse Rate 84 05/11/19 09:33 Respiratory Rate 20 05/11/19 09:33 Blood Pressure 123/89 05/11/19 09:33 O2 Sat by Pulse Oximetry (%) Laboratory Last Values WBC 5.7 K/mm3 (4.0-10.0) 05/10/19 08:00 RBC 4.90 M/mm3 (4.00-5.60) 05/10/19 08:00 Hgb 15.1 GM/dL (11.7-16.9) 05/10/19 08:00 Hct 43.7 % (35.4-49) 05/10/19 08:00 MCV 89.2 fl (80-96) 05/10/19 08:00 MCH 30.8 pg (25.7-33.7) 05/10/19 08:00 MCHC 34.5 g/dl (32.0-35.9) 05/10/19 08:00 RDW 14.1 % (11.9-15.9) 05/10/19 08:00 Plt Count 204 K/MM3 (134-434) 05/10/19 08:00 MPV 10.3 fl (7.5-11.1) 05/10/19 08:00 Sodium 141 mmol/L (136-145) 05/10/19 08:00 Potassium 4.0 mmol/L (3.5-5.1) 05/10/19 08:00 Chloride 106 mmol/L (98-107) 05/10/19 08:00 Carbon Dioxide 27 mmol/L (21-32) 05/10/19 08:00 Anion Gap 8 MMOL/L (8-16) 05/10/19 08:00 BUN 10.9 mg/dL (7-18) 05/10/19 08:00 Creatinine 0.7 mg/dL (0.55-1.3) 05/10/19 08:00 Est GFR (CKD-EPI)AfAm 126.64 05/10/19 08:00 Est GFR (CKD-EPI)NonAf 109.27 05/10/19 08:00 POC Glucometer 262 UNITS (80-120) 05/11/19 05:27 Random Glucose 223 mg/dL (74-106) H 05/10/19 08:00 Calcium 8.9 mg/dL (8.5-10.1) 05/10/19 08:00 Total Bilirubin 0.4 mg/dL (0.2-1) 05/10/19 08:00 AST 16 U/L (15-37) 05/10/19 08:00 ALT 31 U/L (13-61) 05/10/19 08:00 Alkaline Phosphatase 80 U/L (45-117) 05/10/19 08:00 Total Protein 7.3 g/dl (6.4-8.2) 05/10/19 08:00 Albumin 4.0 g/dl (3.4-5.0) 05/10/19 08:00 RPR Titer Nonreactive (NONREACTIVE) 05/10/19 08:00 lab noted discuss weight loss and dietary diabetes regimen Assessment: 05/11/19 11:13 mild alcohol withdrawal sx diabetes Plan: continue alcohol detox
[2019-05-11] MEDS: CHOLECALCIFEROL (VIT D3) 400 UNIT (10 MCG) TABLET PO SCH (14:03)
[2019-05-11] MEDS: THIAMINE HCL 100 MG TABLET (FP) PO SCH (22:26)
[2019-05-12] MEDS: diazePAM 5 MG TABLET PO ONE (05:44)
[2019-05-12] MEDS: INSULIN SLIDING SCALE (NOVOLOG) 1 VIAL SQ SCH (06:58)
--- NOTE | 2019-05-12 08:28 | DS ---
[facility] Detox Discharge Summary Admission Date: 05/09/19 Discharge Date: 05/12/19 - History Present History: Opioid Dependence Additional Comments: 53 yeas old male admitted on 05/09/19 for opiate withdrawal stabilization completed detox regimen after[facility] - Physical Exam Results Vital Signs: Vital Signs Temperature 97.5 F L 05/12/19 06:32 Pulse Rate 69 05/12/19 06:32 Respiratory Rate 18 05/12/19 06:32 Blood Pressure 121/77 05/12/19 06:32 O2 Sat by Pulse Oximetry (%) Pertinent Admission Physical Exam Findings: opiate withdrawal sx Laboratory Last Values WBC 5.7 K/mm3 (4.0-10.0) 05/10/19 08:00 RBC 4.90 M/mm3 (4.00-5.60) 05/10/19 08:00 Hgb 15.1 GM/dL (11.7-16.9) 05/10/19 08:00 Hct 43.7 % (35.4-49) 05/10/19 08:00 MCV 89.2 fl (80-96) 05/10/19 08:00 MCH 30.8 pg (25.7-33.7) 05/10/19 08:00 MCHC 34.5 g/dl (32.0-35.9) 05/10/19 08:00 RDW 14.1 % (11.9-15.9) 05/10/19 08:00 Plt Count 204 K/MM3 (134-434) 05/10/19 08:00 MPV 10.3 fl (7.5-11.1) 05/10/19 08:00 Sodium 141 mmol/L (136-145) 05/10/19 08:00 Potassium 4.0 mmol/L (3.5-5.1) 05/10/19 08:00 Chloride 106 mmol/L (98-107) 05/10/19 08:00 Carbon Dioxide 27 mmol/L (21-32) 05/10/19 08:00 Anion Gap 8 MMOL/L (8-16) 05/10/19 08:00 BUN 10.9 mg/dL (7-18) 05/10/19 08:00 Creatinine 0.7 mg/dL (0.55-1.3) 05/10/19 08:00 Est GFR (CKD-EPI)AfAm 126.64 05/10/19 08:00 Est GFR (CKD-EPI)NonAf 109.27 05/10/19 08:00 POC Glucometer 280 UNITS (80-120) 05/12/19 05:45 Random Glucose 223 mg/dL (74-106) H 05/10/19 08:00 Calcium 8.9 mg/dL (8.5-10.1) 05/10/19 08:00 Total Bilirubin 0.4 mg/dL (0.2-1) 05/10/19 08:00 AST 16 U/L (15-37) 05/10/19 08:00 ALT 31 U/L (13-61) 05/10/19 08:00 Alkaline Phosphatase 80 U/L (45-117) 05/10/19 08:00 Total Protein 7.3 g/dl (6.4-8.2) 05/10/19 08:00 Albumin 4.0 g/dl (3.4-5.0) 05/10/19 08:00 RPR Titer Nonreactive (NONREACTIVE) 05/10/19 08:00 lab noted - Treatment Hospital Course: Detox Protocol Followed, Detoxed Safely, Responded well, Discharged Condition Good, Rehab Referral Accepted Patient has Accepted a Rehab Referral to: [facility] - Medication Discharge Medications: Ambulatory Orders Cholecalciferol (Vitamin D3) [Vitamin D -] 400 unit PO DAILY #30 tab 04/14/19 Docusate Sodium [Stool Softener] 100 mg PO BID #60 capsule 04/14/19 [place]-3 Acid Ethyl Esters [Lovaza -] 1,000 mg PO BID #60 cap 04/14/19 Metformin HCl [Glucophage] 850 mg PO DAILY #30 tablet 05/11/19 Nifedipine [Procardia Xl] 60 mg PO DAILY #14 tab.er.24 05/11/19 - Diagnosis (1) Uncomplicated opioid dependence Status: Acute (2) Nicotine dependence Status: Acute Qualifiers: Nicotine product type: cigarettes Substance use status: in withdrawal Qualified Code(s): F17.213 - Nicotine dependence, cigarettes, with withdrawal (3) DM Diabetes mellitus type 2 Status: Chronic (4) Essential hypertension Status: Chronic (5) Hypercholesterolemia Status: Chronic (6) Substance induced mood disorder Status: Suspected - AMA Did Patient Leave Against Medical Advice: No
[2019-05-12 09:12] VITALS: BP 166/103; PULSE 124; TEMP 97.2
== END 2019-05-12 09:31 | disposition home or self-care (01) | DRG 897 ==
LOC: YASAS 15:48 → Y3N 18:51
PROVIDERS: ADMIT Surgery; ATTEND Surgery
PROC: HZ2ZZZZ Detoxification Services for Substance Abuse Treatment (ICD-10-PCS; principal; 2019-05-09)
DX: F10.230 Alcohol dependence with withdrawal, uncomplicated (principal); F11.23 Opioid dependence with withdrawal; F13.10 Sedative, hypnotic or anxiolytic abuse, uncomplicated; F12.20 Cannabis dependence, uncomplicated; F17.213 Nicotine dependence, cigarettes, with withdrawal; F19.24 Other psychoactive substance dependence with psychoactive substance-induced mood disorder; I10 Essential (primary) hypertension; E78.00 Pure hypercholesterolemia, unspecified; E11.9 Type 2 diabetes mellitus without complications; Z79.84 Long term (current) use of oral hypoglycemic drugs
CPT/HCPCS: 36415; 80053; 82962; 85027; 86593

== ENCOUNTER 2019-05-21 10:15 | Inpatient (IN) | payer OTHER ==
[2019-05-21 11:00] VITALS: BMI 32.4
--- NOTE | 2019-05-21 12:17 | HP ---
CIWA Score Nausea/Vomitin-No Nausea/No Vomiting Muscle Tremors: 1-None Visible, but [place] Anxiety: 0-No Anxiety, at Ease Agitation: 0-Normal Activity Paroxysmal Sweats: No Perspiration Orientation: 0-Oriented Tacttile Disturbances: 0-None Auditory Disturbances: 0-None Visual Disturbances: 0-None Headache: 0-None Present CIWA-Ar Total Score: 1 - Admission Criteria OASAS Guidelines: Admission for Medically Managed Detox: Requires at least one of the followin. CIWA greater than 12 2. Seizures within the past 24 hours 3. Delirium tremens within the past 24 hours 4. Hallucinations within the past 24 hours 5. Acute intervention needed for co occurring medical disorder 6. Acute intervention needed for co occurring psychiatric disorder 7. Severe withdrawal that cannot be handled at a lower level of care (continued vomiting, continued diarrhea, abnormal vital signs) requiring intravenous medication and/or fluids 8. Admission ROS [facility] Chief Complaint: 53 y/o M with PMH HTN, DM2 (on metformin), HLD, anxiety, who presents for rehab from alcohol and marijuana. Allergies/Adverse Reactions: Allergies Allergy/AdvReac Type Severity Reaction Status Date / Time lactose AdvReac Severe diarrhea Verified 05/21/19 10:53 melatonin AdvReac Intermediate depressed Verified 05/21/19 10:53 trazodone AdvReac Intermediate depression Verified 05/21/19 10:53 History of Present Illness: 53 y/o M with PMH HTN, DM2 (on metformin), HLD, anxiety, who presents for rehab from alcohol and marijuana. States that he left detox at [facility] 05/09/19, and went straight to an [facility] program to stay clean. While there, he did 2-3 days of additional alcohol detox with librium. States that he was subsequently referred to [facility] here for rehab. In the interim, he had gone to [facility] as his BG was high (initially 400's); was given 11u insulin and metformin to help bring level down. On recheck, he was given 4 additional units and it was brought down to the 200's. Last drink was 05/16; he had 2 beers [address] he was at [facility]. Between 2009 -2014, he used to drink 2 6 packs of beer a day. He subsequently became a binge drinker and used to drink the same amount every other day. During this time, pt has also used marijuana. He has smoked $100/one time a month. Of note, pt has had multiple admissions for detox/rehab for alcohol and marijuana. Seeking 3/4 house after he is d/c from rehab as well as outpt meetings. PMH: as above PsxH: denies meds: metformin, nifedipine, omega3, colace allergies: lactose intolerant, melatonin, trazodone - depressed FH: father, mother - HTn, DM, HLD. mother - with "clot" on blood thinner SH: has been staying in a hotel for the last 10 yrs. living off disability work related and SSI for anxiety quit cigarettes 8 months ago. alcohol and marijuana use as above. denies other drugs Exam Limitations: No Limitations - Ebola screening Have you traveled outside of the country in the last 21 days: No Have you had contact with anyone from an Ebola affected area: No Do you have a fever: No - Review of Systems Constitutional: No Symptoms Reported EENT: reports: Blurred Vision Respiratory: reports: No Symptoms reported Cardiac: reports: No Symptoms Reported GI: reports: No Symptoms Reported : reports: No Symptoms Reported Musculoskeletal: reports: No Symptoms Reported Integumentary: reports: No Symptoms Reported Neuro: reports: Headache Endocrine: reports: No Symptoms Reported Hematology: reports: No Symptoms Reported Psychiatric: reports: No Sypmtoms Reported, Orientated x3 Patient History - Patient Medical History Hx Anemia: No Hx Asthma: No Hx Chronic Obstructive Pulmonary Disease (COPD): No Hx Cancer: No Hx Cardiac Disorders: No Hx Congestive Heart Failure: No Hx Hypertension: Yes Hx Hypercholesterolemia: Yes (non compliance) Hx Pacemaker: No HX Cerebrovascular Accident: No Hx Seizures: No Hx Dementia: No Hx Diabetes: Yes Hx Gastrointestinal Disorders: No Hx Liver Disease: No Hx Genitourinary Disorders: No Hx Sexually Transmitted Disorders: No Hx Renal Disease (ESRD): No Hx Thyroid Disease: No Hx Human Immunodeficiency Virus (HIV): No (NEGATIVE HX last 12/24) Hx Hepatitis C: No Hx Depression: No Hx Suicide Attempt: No Hx Bipolar Disorder: No Hx Schizophrenia: No - Patient Surgical History Past Surgical History: No Hx Neurologic Surgery: No Hx Cataract Extraction: No Hx Cardiac Surgery: No Hx Lung Surgery: No Hx Breast Surgery: No Hx Breast Biopsy: No Hx Abdominal Surgery: No Hx Appendectomy: No Hx Cholecystectomy: No Hx Genitourinary Surgery: No Hx Section: No Hx Orthopedic Surgery: No Hx Hysterectomy: No Anesthesia Reaction: No - PPD History Date: 11/07/18 Results: 0 mm PPD to be Administered?: No - Reproductive History Patient is a Female of Child Bearing Age (11 -55 yrs old): No - Smoking Cessation Smoking history: Former smoker Have you smoked in the past 12 months: No Aproximately how many cigarettes per day: 0 If you are a former smoker, when did you quit?: 06/2018 Cigars Per Day: 0 Hx Chewing Tobacco Use: No Initiated information on smoking cessation: No - Substance & Tx. History Hx Alcohol Use: Yes Substance Use Type: Alcohol, Marijuana Hx Substance Use Treatment: Yes ([facility] 2019 [facility]) - Substances abused Alcohol Substance route: Oral Frequency: 3-6 times per week Amount used: 06/16OZ, 1 SHOT OF VODKA Age of first use: 24 Date of last use: 05/09/19 Marijuana/Hashish Substance route: Smoking Frequency: 1-3 times last 30 days Amount used: $50 Age of first use: 19 Date of last use: 05/13/19 Alprazolam (Xanax) Substance route: Oral Frequency: 1-2 times per week Amount used: 3 (2mg)pills Age of first use: 51 Date of last use: 02/05/19 Other Other (specify): Xanax Substance route: Oral Frequency: 3-6 times per week Amount used: 3 sticks Age of first use: 53 Date of last use: 05/07/19 Family Disease History - Family Disease History Family Disease History: Diabetes: Father (no contact - alcohol,sober), Mother ( no contact -alcohol,sober), Other: Father, Brother (seven half brothers), Sister (one - non contact ? 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 Integumentary: Yes: Within Normal Limits Lymphatic: Yes: Within Normal Limits - Diagnostic (1) Alcohol dependence Current Visit: Yes Status: Chronic Qualifiers: Substance use status: in remission Qualified Code(s): F10.21 - Alcohol dependence, in remission (2) Cannabis abuse Current Visit: Yes Status: Chronic (3) Anxiety Current Visit: Yes Status: Chronic (4) DM Diabetes mellitus type 2 Current Visit: Yes Status: Chronic Comment: bgm = 269 (5) Essential hypertension Current Visit: Yes Status: Chronic (6) Hypercholesterolemia Current Visit: Yes Status: Chronic (7) Obesity Current Visit: Yes Status: Chronic Qualifiers: Obesity type: unspecified obesity type Obesity classification: adult class 1 (BMI 30 - 34.9) Cleared for Admission [facility] - Detox or Rehab [facility] Level of Care: Medically Managed Detox Regimen/Protocol: Not Applicable Claeared for Rehab Admission: Yes Breathalyzer - Breathalyzer Breathalyzer: 0 Urine Drug Screen - Test Device Lot number: [id number] Expiration date: 03/04/21 - Control Is test valid?: Yes - Results Drug screen NEGATIVE: No Urine drug screen results: THC-Marijuana, BZO-Benzodiazepines Inpatient Rehab Admission - Rehab Decision to Admit Inpatient rehab admission?: Yes - Initial Determination Are CD services needed?: Yes Free of communicable disease: Yes Not in need of hospitalization: Yes - Rehab Admission Criteria Previous failed treatment: Yes Poor recovery environment: Yes Comorbidities: Yes Lacks judgement: No Patient is meeting Inpatient Rehab admission criteria:: Yes
[2019-05-21] MEDS ORDERED: P-EPHED 60MG/TRIPROLIDI 2.5MG TABLET PO PRN (12:35)
[2019-05-21] MEDS ORDERED: MENTHOL/PHENOL 1 EACH UD MM PRN (12:35)
[2019-05-21] MEDS ORDERED: IBUPROFEN 400 MG TABLET (FP) PO PRN (12:35)
[2019-05-21] MEDS ORDERED: MAGNESIUM HYDROX 2400MG/30ML ORAL SUSPENSION 30 ML CUP PO PRN (12:35)
[2019-05-21] MEDS ORDERED: LOPERAMIDE HCL 2 MG CAPSULE PO PRN (12:35)
[2019-05-21] MEDS ORDERED: hydrOXYzine HCL 25 MG TABLET (FP) PO PRN (12:35)
[2019-05-21] MEDS ORDERED: ACETAMINOPHEN 325 MG TABLET (FP) PO PRN (12:35)
[2019-05-21] MEDS ORDERED: MAG HYDROX/AL HYDROX/SIMETH 30 ML UNIT-DOSE CUP PO PRN (12:35)
[2019-05-21] MEDS ORDERED: guaiFENesin 200 MG/10 ML 10 ML UNIT-DOSE CUPS PO PRN (12:35)
--- NOTE | 2019-05-21 13:55 | PN ---
Teaching Attending Note Name of Resident: Chanelle Faith ATTENDING PHYSICIAN STATEMENT I saw and evaluated the patient. I reviewed the resident's note and discussed the case with the resident. I agree with the resident's findings and plan as documented. SUBJECTIVE: this 53 years old male with alcohol dependence seeking rehab ,detox [facility] discharged on 05/20/19, history of hypertension,type 2 dm history of multiple admissions in detox and rehab in the past but keep relapsing OBJECTIVE: for inpatient rehab from alcohol ASSESSMENT AND PLAN: for inpatient rehab from alcohol,
[2019-05-21] MEDS ORDERED: INSULIN (NOVOLOG) ASPART 100 UNITS/ML 10ML VIAL SQ ONE (14:09)
[2019-05-21] MEDS: NIFEdipine E.R 60 MG TABLET (UD) PO SCH (15:47)
[2019-05-21] MEDS ORDERED: INSULIN SLIDING SCALE (NOVOLOG) 1 VIAL SQ SCH (16:30)
[2019-05-21] MEDS: INSULIN (NOVOLOG) ASPART 100 UNITS/ML 10ML VIAL SQ SCH ×2 (17:17→22:12)
[2019-05-21] MEDS: DOCUSATE SODIUM 100 MG CAPSULE (FP) PO SCH (22:11)
[2019-05-21] MEDS: THIAMINE HCL 100 MG TABLET (FP) PO SCH (22:11)
[2019-05-21] MEDS: OMEGA-3 ACID ETHYL ESTERS (FATTY-ACIDS) 1 GM CAPSULE (FP) PO SCH (22:11)
[2019-05-21] MEDS ORDERED: INSULIN (NOVOLOG) ASPART 100 UNITS/ML 10ML VIAL ONE (22:15)
[2019-05-22] MEDS: INSULIN (NOVOLOG) ASPART 100 UNITS/ML 10ML VIAL SQ SCH ×4 (07:53→21:50)
[2019-05-22] MEDS: OMEGA-3 ACID ETHYL ESTERS (FATTY-ACIDS) 1 GM CAPSULE (FP) PO SCH ×2 (10:34→21:49)
[2019-05-22] MEDS: NIFEdipine E.R 60 MG TABLET (UD) PO SCH (10:34)
[2019-05-22] MEDS: DOCUSATE SODIUM 100 MG CAPSULE (FP) PO SCH ×2 (10:34→21:50)
[2019-05-22] MEDS: PRENATAL VITAMINS W/ FOLIC ACID TABLET (FP) PO SCH (10:34)
[2019-05-22] MEDS ORDERED: INSULIN (NOVOLOG) ASPART 100 UNITS/ML 10ML VIAL ONE ×2 (12:04→17:11)
--- NOTE | 2019-05-22 13:24 | CONSULT ---
[facility] Psychiatric Consult - Data Date of interview: 05/22/19 Admission source: [facility] Identifying data: Patient is a 53 year old single male, without children, unemployed, domiciled ([place]), and is supported by [facility]. This is one of multiple admissions for patient. Patient admitted to for alcohol and cannabis dependence. Substance Abuse History: Smoking Cessation. Smoking history: Former smoker. Have you smoked in the past 12 months: No. Aproximately how many cigarettes per day: 0. If you are a former smoker, when did you quit?: 06/2018. Cigars Per Day: 0. Hx Chewing Tobacco Use: No. Initiated information on smoking cessation: No. - Substance & Tx. History. Hx Alcohol Use: Yes. Substance Use Type: Alcohol, Marijuana. Hx Substance Use Treatment: Yes ([facility] 2019 [facility]). - Substances abused. Alcohol. Substance route: Oral. Frequency: 3-6 times per week. Amount used: 06/16OZ, 1 SHOT OF VODKA. Age of first use: 24. Date of last use: 05/09/19. Marijuana/Hashish. Substance route: Smoking. Frequency: 1-3 times last 30 days. Amount used: $50. Age of first use: 19. Date of last use: 05/13/19. Alprazolam (Xanax). Substance route: Oral. Frequency: 1-2 times per week. Amount used: 3 (2mg)pills. Age of first use: 51. Date of last use: 02/05/19. Other. Other (specify): Xanax. Substance route: Oral. Frequency: 3-6 times per week. Amount used: 3 sticks. Age of first use: 53. Date of last use: 05/07/19 Medical History: hypertension, hypercholestermia, diabetes Psychiatric History: Patient's first psychiatric contact was in the 1970's while living in [place]. He reports seeing a psychiatrist due to his behavioral problems and reports being prescribed seroquel. Then in 1988 while in [facility] he reports being prescribed risperdal + Seroquel because of his emotional outburst. States that alot of his emotional outburst were due to being raised in a dysfunctional family. Patient most recently received outpatient psychiatric care at [facility] outpatient clinic and reports being prescribed vistaril 50mg prn due to his anxiety disorder. He discontinued treatment after he was assigned a new psychiatrist who refused to prescribe him vistaril. At present patient reports stable mood. Patient denies h /o auditory/visual hallucinations. No psychosis noted. Patient denies h/o suicide attempt. Physical/Sexual Abuse/Trauma History: denies. Mental Status Exam - Mental Status Exam Alert and Oriented to: Time, Place, Person Cognitive Function: Good Patient Appearance: Well Groomed Mood: Euthymic Affect: Appropriate Patient Behavior: Appropriate, Cooperative Speech Pattern: Appropriate Voice Loudness: Normal Thought Process: Goal Oriented Thought Disorder: Not Present Hallucinations: Denies Suicidal Ideation: Denies Homicidal Ideation: Denies Insight/Judgement: Poor Sleep: Fair Appetite: Fair Muscle strength/Tone: Normal Gait/Station: Normal Psychiatric Findings - Problem List ([place] 1, 2,3) (1) Alcohol dependence Current Visit: Yes Status: Chronic Qualifiers: Substance use status: in remission Qualified Code(s): F10.21 - Alcohol dependence, in remission (2) Cocaine dependence Current Visit: Yes Status: Chronic (3) Anxiety disorder Current Visit: No Status: Chronic - Initial Treatment Plan Initial Treatment Plan: Psychoeducation provided. Detoxification in progress. Observation.
[2019-05-22] MEDS: THIAMINE HCL 100 MG TABLET (FP) PO SCH (21:49)
[2019-05-22] MEDS: hydrOXYzine HCL 25 MG TABLET (FP) PO PRN (21:51)
[2019-05-23 06:48] VITALS: BP 139/95; PULSE 78; TEMP 97.8
[2019-05-23] MEDS: INSULIN (NOVOLOG) ASPART 100 UNITS/ML 10ML VIAL SQ SCH ×2 (07:50→12:41)
[2019-05-23] MEDS: OMEGA-3 ACID ETHYL ESTERS (FATTY-ACIDS) 1 GM CAPSULE (FP) PO SCH (10:20)
[2019-05-23] MEDS: PRENATAL VITAMINS W/ FOLIC ACID TABLET (FP) PO SCH (10:20)
[2019-05-23] MEDS: NIFEdipine E.R 60 MG TABLET (UD) PO SCH (10:20)
[2019-05-23] MEDS: DOCUSATE SODIUM 100 MG CAPSULE (FP) PO SCH (10:20)
[2019-05-23] MEDS: hydrOXYzine HCL 25 MG TABLET (FP) PO PRN (10:22)
--- NOTE | 2019-05-23 12:05 | PN ---
[facility] Progress Note (SOAP) Subjective: PT DECLINED TO CONTINUE WITH REHAB STATING HE HAS 3 DIFFERENT ISSUES HE NEEDS TO SORT OUT ABOUT PICKING UP HIS INSURANCE CARD IN PERSON AND ABOUT SECURING HIS FINANCE. STATES HE IS NOT ABLE TO FOCUS ON REHAB ACTIVITIES AT THIS TIME. PT SPOKE WITH HIS COUNSELOR ABOUT AFTERCARE REFERRAL BEFORE EXITING. PT REPORTS HE HAS PRIMARY CARE AT [place], [place]. PT REPORTS HE HAS OWN MEDS AND NO NEED FOR [facility] RX. PT IS ALERT O X 3. DENIES S/H/I. Objective: 05/23/19 12:04 Vital Signs 05/23/19 06:47 Temperature 97.8 F Pulse Rate 78 Respiratory 18 Rate Blood Pressure 139/95 Laboratory Tests 05/21/19 05/21/19 05/21/19 12:42 14:23 17:17 POC Glucometer 336 295 188 05/21/19 05/22/19 05/22/19 20:57 06:09 11:59 POC Glucometer 301 232 266 05/22/19 05/22/19 17:09 21:48 POC Glucometer 216 357 PT REFUSED BGM THIS MORNING PER NURSE'S REPORT. 05/23/19 12:12 Home Medications Medication Instructions Recorded Docusate Sodium [Stool Softener] 100 mg PO BID #60 capsule 04/14/19 [place]-3 Acid Ethyl Esters [Lovaza 1,000 mg PO BID #60 cap 04/14/19 -] Metformin HCl [Glucophage] 850 mg PO DAILY #30 tablet 05/11/19 Nifedipine [Procardia Xl] 60 mg PO DAILY #14 tab.er.24 05/11/19 Assessment: 05/23/19 12:05 NAD NONCOMPLIANT WITH MEDICAL CARE 05/23/19 12:11 [facility] Inpatient Services Medical - Diagnosis (1) DM Diabetes mellitus type 2 Current Visit: Yes Status: Chronic (2) Essential hypertension Current Visit: Yes Status: Chronic (3) Hypercholesterolemia Current Visit: Yes Status: Chronic (4) Nicotine dependence Qualifiers: Nicotine product type: cigarettes Substance use status: uncomplicated Qualified Code(s): F17.210 - Nicotine dependence, cigarettes, uncomplicated Current Visit: Yes Status: Chronic (5) Obesity (BMI 30.0-34.9) Current Visit: Yes Status: Chronic (6) Sedative dependence Current Visit: Yes Status: Chronic (7) Alcohol dependence Qualifiers: Substance use status: uncomplicated Qualified Code(s): F10.20 - Alcohol dependence, uncomplicated Current Visit: Yes Status: Chronic (8) Cannabis dependence Current Visit: Yes Status: Chronic Initialized on 05/23/19 12:09 - END OF NOTE Plan: PT SIGNED OUT AMA FOLLOW UP WITH CD AFTERCARE RECOMMENDATION. FOLLOW UP WITH PCP ( SPELT BY PATIENT) AT [facility] 1 WEEK AFTER DISCHARGE FOR MEDICAL MANAGEMENT.
== END 2019-05-23 12:15 | disposition left against medical advice (07) | DRG 894 ==
LOC: YASAS 10:15 → Y5N 12:29
PROVIDERS: ADMIT Neuromusculoskeletal Medicine & OMM; ATTEND Neuromusculoskeletal Medicine & OMM
PROC: HZ42ZZZ Group Counseling for Substance Abuse Treatment, Cognitive-Behavioral (ICD-10-PCS; principal; 2019-05-21)
DX: F10.20 Alcohol dependence, uncomplicated (principal); F13.20 Sedative, hypnotic or anxiolytic dependence, uncomplicated; F12.20 Cannabis dependence, uncomplicated; F17.210 Nicotine dependence, cigarettes, uncomplicated; F41.9 Anxiety disorder, unspecified; I10 Essential (primary) hypertension; E11.9 Type 2 diabetes mellitus without complications; E78.5 Hyperlipidemia, unspecified; E66.9 Obesity, unspecified; Z68.32 Body mass index [BMI] 32.0-32.9, adult; Z91.14 Patient's other noncompliance with medication regimen; Z79.84 Long term (current) use of oral hypoglycemic drugs; Z88.8 Allergy status to other drugs, medicaments and biological substances
CPT/HCPCS: 82962

== ENCOUNTER 2019-06-14 10:01 | Inpatient (IN) | payer OTHER ==
[2019-06-14 10:50] VITALS: BMI 31.8
--- NOTE | 2019-06-14 11:32 | HP ---
"CIWA Score Nausea/Vomitin Muscle Tremors: 4-Moderate,w/Arms Extend Anxiety: 4-Mod. Anxious/Guarded Agitation: 2 Paroxysmal Sweats: 1-Minimal Palms Moist Orientation: 0-Oriented Tacttile Disturbances: 0-None Auditory Disturbances: 0-None Visual Disturbances: 1-Very Mild Sensitivity Headache: 2-Mild CIWA-Ar Total Score: 16 - Admission Criteria [facility]ASAS Guidelines: Admission for Medically Managed Detox: Requires at least one of the followin. CIWA greater than 12 2. Seizures within the past 24 hours 3. Delirium tremens within the past 24 hours 4. Hallucinations within the past 24 hours 5. Acute intervention needed for co occurring medical disorder 6. Acute intervention needed for co occurring psychiatric disorder 7. Severe withdrawal that cannot be handled at a lower level of care (continued vomiting, continued diarrhea, abnormal vital signs) requiring intravenous medication and/or fluids 8. Patient presents the following: CIWA greater than 12 Admission Criteria Met: Admission criteria met Admission ROS S - HPI Chief Complaint: I want help, I want to have another chance and try again - I have a plan this time, I might go to [facility] program. Allergies/Adverse Reactions: Allergies Allergy/AdvReac Type Severity Reaction Status Date / Time Fish Containing Products Allergy Severe Rash Verified 06/14/19 10:39 lactose AdvReac Severe diarrhea Verified 06/14/19 10:39 melatonin AdvReac Intermediate depressed Verified 06/14/19 10:39 trazodone AdvReac Intermediate depression Verified 06/14/19 10:39 History of Present Illness: 53 yo gentleman here for detox from alcohol and benzodiazepines. Denies seizures but does have black outs. This is one of multiple admissions for treatment. He was last here May 09 for detox, went to rehab but left after two days for a family emergency. We discussed that he is referred for rehab but never completes - also has never been on MAT - he states he understands it would help him and cannot explain why he has not followed through. States he used to see s psychiatrist who stopped seeing him about six months ago and he is seeking a new one. Lives in an [place]. [facility]: Search Terms: araceli centenodonell, 1965 Search Date: 06/14/2019 11:36:23 AM The Drug Utilization Report below displays all of the controlled substance prescriptions, if any, that your patient has filled in the last twelve months. The information displayed on this report is compiled from pharmacy submissions to the Department, and accurately reflects the information as submitted by the pharmacies. This report was requested by: Soo Limon | Reference #: [id number] There are no results for the search terms that you entered. Exam Limitations: No Limitations - Ebola screening Have you traveled outside of the country in the last 21 days: No (N) Have you had contact with anyone from an Ebola affected area: No Do you have a fever: No - Review of Systems Constitutional: Loss of Appetite, Night Sweats, Changes in sleep EENT: reports: No Symptoms Reported Respiratory: reports: No Symptoms reported Cardiac: reports: No Symptoms Reported GI: reports: Nausea, Poor Appetite, Poor Fluid Intake, Abdominal cramping : reports: No Symptoms Reported Musculoskeletal: reports: No Symptoms Reported Integumentary: reports: Dryness Neuro: reports: Headache, Tremors, Weakness Endocrine: reports: No Symptoms Reported Hematology: reports: No Symptoms Reported Psychiatric: reports: Judgement Intact, Mood/Affect Appropiate, Orientated x3, Anxious Other Systems: Reviewed and Negative Patient History - Patient Medical History Hx Anemia: No Hx Asthma: No Hx Chronic Obstructive Pulmonary Disease (COPD): No Hx Cancer: No Hx Cardiac Disorders: No Hx Congestive Heart Failure: No Hx Hypertension: Yes Hx Hypercholesterolemia: Yes (non compliance) Hx Pacemaker: No HX Cerebrovascular Accident: No Hx Seizures: No Hx Dementia: No Hx Diabetes: Yes (on meds) Hx Gastrointestinal Disorders: No Hx Liver Disease: No Hx Genitourinary Disorders: No Hx Sexually Transmitted Disorders: No Hx Renal Disease (ESRD): No Hx Thyroid Disease: No Hx Human Immunodeficiency Virus (HIV): No (NEGATIVE HX last 12/24) Hx Hepatitis C: No Hx Depression: No (anxiety/panic disorder - hx seeing psych) Hx Suicide Attempt: No Hx Bipolar Disorder: No Hx Schizophrenia: No - Patient Surgical History Past Surgical History: No Hx Neurologic Surgery: No Hx Cataract Extraction: No Hx Cardiac Surgery: No Hx Lung Surgery: No Hx Breast Surgery: No Hx Breast Biopsy: No Hx Abdominal Surgery: No Hx Appendectomy: No Hx Cholecystectomy: No Hx Genitourinary Surgery: No Hx Section: No Hx Orthopedic Surgery: No Hx Hysterectomy: No Anesthesia Reaction: No - PPD History Previous Implant?: Yes Documented Results: Negative w/proof Implanted On Prior [facility] Admission?: Yes Date: 11/07/18 Results: 0 mm PPD to be Administered?: No - Reproductive History Patient is a Female of Child Bearing Age (11 -55 yrs old): No - Smoking Cessation Smoking history: Former smoker Have you smoked in the past 12 months: No Aproximately how many cigarettes per day: 0 If you are a former smoker, when did you quit?: 06/2018 Cigars Per Day: 0 Hx Chewing Tobacco Use: No Initiated information on smoking cessation: No - Substance & Tx. History Hx Alcohol Use: Yes Hx Substance Use: Yes Substance Use Type: Alcohol, Marijuana, Tranquilizers Hx Substance Use Treatment: Yes - Substances abused Alcohol Substance route: Oral Frequency: 3-6 times per week Amount used: 06/16OZ, 1 pint OF VODKA Age of first use: 24 Date of last use: 06/14/19 Marijuana/Hashish Substance route: Smoking Frequency: 1-3 times last 30 days Amount used: $50 Age of first use: 19 Date of last use: 06/14/19 Alprazolam (Xanax) Substance route: Oral Frequency: 1-2 times per week Amount used: 2 sticks Age of first use: 51 Date of last use: 06/12/19 Other Other (specify): Xanax Substance route: Oral Frequency: 3-6 times per week Amount used: 2 sticks (2mg) Age of first use: 53 Date of last use: 06/12/19 Cocaine Substance route: Inhalation Frequency: 1-2 times per week Amount used: $40 Age of first use: 24 Date of last use: 06/09/19 Family Disease History - Family Disease History Family Disease History: Diabetes: Father (living no contact - alcohol,sober), Mother (living - no contact -alcohol,sober), Other: Father, Mother, Brother ( seven half brothers), Sister (one - non contact ? etho) Admission Physical Exam [facility] - Vital Signs Vital Signs: Vital Signs - 24 hr 06/14/19 10:44 Temperature 96.8 F L Pulse Rate 72 Respiratory 18 Rate Blood Pressure 120/75 - Physical General Appearance: Yes: Nourished, Appropriately Dressed, Moderate Distress, Obese, Tremorous, Anxious HEENTM: Yes: EOMI, Hearing grossly Normal, Normocephalic, Normal Voice, Pharynx Normal, Other (no teeth; conjunctiva red) Respiratory: Yes: Normal Breath Sounds, No Respiratory Distress Neck: Yes: No masses,lesions,Nodules, Supple Breast: Yes: Breast Exam Deferred Cardiology: Yes: Regular Rhythm, Regular Rate Abdominal: Yes: Soft, Protuberent Genitourinary: Yes: Frequency Back: Yes: Normal Inspection Musculoskeletal: Yes: full range of Motion, Gait Steady Extremities: Yes: Normal Capillary Refill, Normal Inspection, Normal Range of Motion 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: Yes: Fully Oriented, Alert, Motor Strength 5/5, Normal Mood/Affect , Normal Response Integumentary: Yes: Normal Color, Dry, Warm Lymphatic: Yes: Within Normal Limits - Diagnostic (1) Alcohol dependence with uncomplicated withdrawal Current Visit: Yes Status: Chronic (2) Sedative, hypnotic or anxiolytic abuse, uncomplicated Current Visit: Yes Status: Chronic (3) Cannabis dependence Current Visit: Yes Status: Chronic (4) DM Diabetes mellitus type 2 Current Visit: Yes Status: Chronic Comment: bgm = (5) Essential hypertension Current Visit: Yes Status: Chronic (6) Obesity (BMI 30.0-34.9) Current Visit: Yes Status: Chronic (7) No natural teeth Current Visit: Yes Status: Chronic (8) Hypercholesterolemia Current Visit: Yes Status: Chronic Cleared for Admission S - Detox or Rehab [facility] Level of Care: Medically Managed Detox Regimen/Protocol: Librium Breathalyzer - Breathalyzer Breathalyzer: 0 Urine Drug Screen - Test Device Lot number: [id number] Expiration date: 03/04/21 - Control Is test valid?: Yes - Results Drug screen NEGATIVE: No Urine drug screen results: THC-Marijuana, BZO-Benzodiazepines Inpatient Rehab Admission - Rehab Decision to Admit Inpatient rehab admission?: No"
[2019-06-14] MEDS ORDERED: BISMUTH SUBSALICYLATE 524 MG/30 ML UD PO PRN (11:51)
[2019-06-14] MEDS ORDERED: chlordiazePOXIDE HCL 25 MG CAPSULE PO PRN (11:51)
[2019-06-14] MEDS ORDERED: MENTHOL/PHENOL 1 EACH UD MM PRN (11:51)
[2019-06-14] MEDS ORDERED: MAGNESIUM CITRATE 300 ML BOTTLE PO PRN (11:51)
[2019-06-14] MEDS ORDERED: MAGNESIUM HYDROX 2400MG/30ML ORAL SUSPENSION 30 ML CUP PO PRN (11:51)
[2019-06-14] MEDS ORDERED: MAG HYDROX/AL HYDROX/SIMETH 30 ML UNIT-DOSE CUP PO PRN (11:51)
[2019-06-14] MEDS ORDERED: MELATONIN 5 MG TABLETS PO PRN (11:51)
[2019-06-14] MEDS ORDERED: ACETAMINOPHEN 325 MG TABLET (FP) PO PRN (11:51)
[2019-06-14] MEDS ORDERED: METHOCARBAMOL 500 MG TABLET PO PRN (11:51)
[2019-06-14] MEDS ORDERED: IBUPROFEN 400 MG TABLET (FP) PO PRN (11:51)
[2019-06-14] MEDS ORDERED: chlordiazePOXIDE HCL 25 MG CAPSULE PO ONE (13:00)
[2019-06-14] MEDS: INSULIN SLIDING SCALE (NOVOLOG) 1 VIAL SQ SCH (17:29)
[2019-06-14] MEDS: chlordiazePOXIDE HCL 25 MG CAPSULE PO SCH ×2 (17:30→22:37)
[2019-06-14] MEDS: OMEGA-3 ACID ETHYL ESTERS (FATTY-ACIDS) 1 GM CAPSULE (FP) PO SCH (22:37)
[2019-06-14] MEDS: THIAMINE HCL 100 MG TABLET (FP) PO SCH (22:37)
[2019-06-15] MEDS: chlordiazePOXIDE HCL 25 MG CAPSULE PO SCH ×4 (06:04→22:35)
[2019-06-15] MEDS: INSULIN SLIDING SCALE (NOVOLOG) 1 VIAL SQ SCH ×2 (07:53→17:10)
[2019-06-15] MEDS ORDERED: metFORMIN HCL 500 MG TABLET (FP) PO SCH (10:00)
[2019-06-15 10:06] LABS: HEMATOCRIT 42.6 % (35.4-49); HEMOGLOBIN 14.5 GM/dL (11.7-16.9); MCH 30.6 pg (25.7-33.7); MCHC 34.1 g/dl (32.0-35.9); MEAN CELL VOLUME 89.8 fl (80-96); MEAN PLT VOLUME 10.1 fl (7.5-11.1); PLATELET COUNT 187 K/MM3 (134-434); RBC 4.74 M/mm3 (4.00-5.60); RDW 13.4 % (11.9-15.9); WHITE BLOOD COUNT 4.4 K/mm3 (4.0-10.0)
[2019-06-15 10:09] LABS: ALBUMIN 3.8 g/dl (3.4-5.0); BILIRUBIN,TOTAL 0.4 mg/dL (0.2-1); BLOOD UREA NITROGEN 8.8 mg/dL (7-18); CALCIUM 8.6 mg/dL (8.5-10.1); CREATININE 0.7 mg/dL (0.55-1.3); POTASSIUM 3.9 mmol/L (3.5-5.1); TOT PROT 6.8 g/dl (6.4-8.2)
[2019-06-15] MEDS: OMEGA-3 ACID ETHYL ESTERS (FATTY-ACIDS) 1 GM CAPSULE (FP) PO SCH ×2 (10:44→22:34)
[2019-06-15] MEDS: PRENATAL VITAMINS W/ FOLIC ACID TABLET (FP) PO SCH (10:44)
[2019-06-15] MEDS: NIFEdipine E.R 60 MG TABLET (UD) PO SCH (10:44)
--- NOTE | 2019-06-15 11:20 | PN ---
[facility] CIWA - CIWA Score Nausea/Vomitin-Mild Nausea/No Vomiting Muscle Tremors: 4-Moderate,w/Arms Extend Anxiety: 3 Agitation: 3 Paroxysmal Sweats: 2 Orientation: 0-Oriented Tacttile Disturbances: 0-None Auditory Disturbances: 0-None Visual Disturbances: 0-None Headache: 0-None Present CIWA-Ar Total Score: 13 S Progress Note (SOAP) Subjective: no headache mild tremor feeling tired resting on bed Objective: 06/15/19 11:21 Vital Signs Temperature 96.9 F L 06/15/19 09:41 Pulse Rate 70 06/15/19 09:41 Respiratory Rate 16 06/15/19 09:41 Blood Pressure 118/78 06/15/19 09:41 O2 Sat by Pulse Oximetry (%) Laboratory Last Values WBC 4.4 K/mm3 (4.0-10.0) 06/15/19 08:00 RBC 4.74 M/mm3 (4.00-5.60) 06/15/19 08:00 Hgb 14.5 GM/dL (11.7-16.9) 06/15/19 08:00 Hct 42.6 % (35.4-49) 06/15/19 08:00 MCV 89.8 fl (80-96) 06/15/19 08:00 MCH 30.6 pg (25.7-33.7) 06/15/19 08:00 MCHC 34.1 g/dl (32.0-35.9) 06/15/19 08:00 RDW 13.4 % (11.9-15.9) 06/15/19 08:00 Plt Count 187 K/MM3 (134-434) 06/15/19 08:00 MPV 10.1 fl (7.5-11.1) 06/15/19 08:00 Sodium 141 mmol/L (136-145) 06/15/19 08:00 Potassium 3.9 mmol/L (3.5-5.1) 06/15/19 08:00 Chloride 106 mmol/L (98-107) 06/15/19 08:00 Carbon Dioxide 30 mmol/L (21-32) 06/15/19 08:00 Anion Gap 5 MMOL/L (8-16) L 06/15/19 08:00 BUN 8.8 mg/dL (7-18) 06/15/19 08:00 Creatinine 0.7 mg/dL (0.55-1.3) 06/15/19 08:00 Est GFR (CKD-EPI)AfAm 126.64 06/15/19 08:00 Est GFR (CKD-EPI)NonAf 109.27 06/15/19 08:00 POC Glucometer 289 UNITS (80-120) 06/15/19 06:03 Random Glucose 261 mg/dL (74-106) H 06/15/19 08:00 Calcium 8.6 mg/dL (8.5-10.1) 06/15/19 08:00 Total Bilirubin 0.4 mg/dL (0.2-1) 06/15/19 08:00 AST 13 U/L (15-37) L 06/15/19 08:00 ALT 23 U/L (13-61) 06/15/19 08:00 Alkaline Phosphatase 66 U/L (45-117) 06/15/19 08:00 Total Protein 6.8 g/dl (6.4-8.2) 06/15/19 08:00 Albumin 3.8 g/dl (3.4-5.0) 06/15/19 08:00 lab noted Assessment: 06/15/19 11:18 53 years old male admitted on 06/14/19 for acute alcohol withdrawal sx management doing well with librium detox regimen medical history of hypertension no headache denies dizziness c/o pruritic between toes erythematous scales noted between toes both feet 06/15/19 11:20 tinea pedis clotrimazol cream 06/15/19 11:22 alcohol withdrawal sx Plan: continue librium detox protocol
[2019-06-15] MEDS: CLOTRIMAZOLE 1% CREAM 15 GM TUBE TP SCH ×2 (12:14→22:33)
[2019-06-15] MEDS: THIAMINE HCL 100 MG TABLET (FP) PO SCH (22:34)
[2019-06-15] MEDS: hydrOXYzine PAMOATE 25 MG CAPSULE (FP) PO PRN (22:38)
[2019-06-16] MEDS: chlordiazePOXIDE HCL 25 MG CAPSULE PO SCH ×4 (05:20→22:18)
[2019-06-16] MEDS: INSULIN SLIDING SCALE (NOVOLOG) 1 VIAL SQ SCH ×2 (07:53→17:18)
[2019-06-16] MEDS: CLOTRIMAZOLE 1% CREAM 15 GM TUBE TP SCH ×2 (10:13→22:15)
[2019-06-16] MEDS: OMEGA-3 ACID ETHYL ESTERS (FATTY-ACIDS) 1 GM CAPSULE (FP) PO SCH ×2 (10:13→22:16)
[2019-06-16] MEDS: PRENATAL VITAMINS W/ FOLIC ACID TABLET (FP) PO SCH (10:13)
[2019-06-16] MEDS: NIFEdipine E.R 60 MG TABLET (UD) PO SCH (10:13)
--- NOTE | 2019-06-16 11:05 | PN ---
[facility] CIWA - CIWA Score Nausea/Vomitin-No Nausea/No Vomiting Muscle Tremors: 2 Anxiety: 2 Agitation: 3 Paroxysmal Sweats: 2 Orientation: 0-Oriented Tacttile Disturbances: 0-None Auditory Disturbances: 0-None Visual Disturbances: 0-None Headache: 1-Very Mild CIWA-Ar Total Score: 10 [facility] Progress Note (SOAP) Subjective: reporting hard small stool x "days" abdomen soft none tender + bowel sound no nausea no vomiting ate 90% breakfast denies dizziness denies abdominal pain encourage MOM follow by citric administration Objective: 06/16/19 11:03 Vital Signs Temperature 97.2 F L 06/16/19 09:28 Pulse Rate 88 06/16/19 09:28 Respiratory Rate 18 06/16/19 09:28 Blood Pressure 127/91 06/16/19 09:28 O2 Sat by Pulse Oximetry (%) Laboratory Last Values WBC 4.4 K/mm3 (4.0-10.0) 06/15/19 08:00 RBC 4.74 M/mm3 (4.00-5.60) 06/15/19 08:00 Hgb 14.5 GM/dL (11.7-16.9) 06/15/19 08:00 Hct 42.6 % (35.4-49) 06/15/19 08:00 MCV 89.8 fl (80-96) 06/15/19 08:00 MCH 30.6 pg (25.7-33.7) 06/15/19 08:00 MCHC 34.1 g/dl (32.0-35.9) 06/15/19 08:00 RDW 13.4 % (11.9-15.9) 06/15/19 08:00 Plt Count 187 K/MM3 (134-434) 06/15/19 08:00 MPV 10.1 fl (7.5-11.1) 06/15/19 08:00 Sodium 141 mmol/L (136-145) 06/15/19 08:00 Potassium 3.9 mmol/L (3.5-5.1) 06/15/19 08:00 Chloride 106 mmol/L (98-107) 06/15/19 08:00 Carbon Dioxide 30 mmol/L (21-32) 06/15/19 08:00 Anion Gap 5 MMOL/L (8-16) L 06/15/19 08:00 BUN 8.8 mg/dL (7-18) 06/15/19 08:00 Creatinine 0.7 mg/dL (0.55-1.3) 06/15/19 08:00 Est GFR (CKD-EPI)AfAm 126.64 06/15/19 08:00 Est GFR (CKD-EPI)NonAf 109.27 06/15/19 08:00 POC Glucometer 285 UNITS (80-120) 06/16/19 05:19 Random Glucose 261 mg/dL (74-106) H 06/15/19 08:00 Calcium 8.6 mg/dL (8.5-10.1) 06/15/19 08:00 Total Bilirubin 0.4 mg/dL (0.2-1) 06/15/19 08:00 AST 13 U/L (15-37) L 06/15/19 08:00 ALT 23 U/L (13-61) 06/15/19 08:00 Alkaline Phosphatase 66 U/L (45-117) 06/15/19 08:00 Total Protein 6.8 g/dl (6.4-8.2) 06/15/19 08:00 Albumin 3.8 g/dl (3.4-5.0) 06/15/19 08:00 RPR Titer Nonreactive (NONREACTIVE) 06/15/19 08:00 HIV 1&2 Antibody Screen Cancelled 06/15/19 08:00 HIV P24 Antigen Cancelled 06/15/19 08:00 lab noted Assessment: 06/16/19 11:03 alcohol withdrawal sx alert oriented x [address] encourage oral fluid Plan: continue librium detox regimen
[2019-06-16] MEDS: hydrOXYzine PAMOATE 25 MG CAPSULE (FP) PO PRN ×2 (15:12→22:17)
[2019-06-16] MEDS: DOCUSATE SODIUM 100 MG CAPSULE (FP) PO SCH (22:16)
[2019-06-16] MEDS: THIAMINE HCL 100 MG TABLET (FP) PO SCH (22:16)
[2019-06-16] MEDS: NICOTINE POLACRILEX 2 MG GUM BUC PRN (22:19)
[2019-06-17] MEDS ORDERED: chlordiazePOXIDE HCL 10 MG CAPSULE PO PRN
[2019-06-17] MEDS: chlordiazePOXIDE HCL 10 MG CAPSULE PO SCH ×4 (05:25→22:24)
[2019-06-17] MEDS ORDERED: INSULIN SLIDING SCALE (NOVOLOG) 1 VIAL SQ ONE (06:16)
[2019-06-17] MEDS: INSULIN SLIDING SCALE (NOVOLOG) 1 VIAL SQ SCH ×2 (06:35→17:12)
[2019-06-17] MEDS: DOCUSATE SODIUM 100 MG CAPSULE (FP) PO SCH ×2 (10:27→22:22)
[2019-06-17] MEDS: PRENATAL VITAMINS W/ FOLIC ACID TABLET (FP) PO SCH (10:27)
[2019-06-17] MEDS: CLOTRIMAZOLE 1% CREAM 15 GM TUBE TP SCH ×2 (10:28→22:23)
[2019-06-17] MEDS: OMEGA-3 ACID ETHYL ESTERS (FATTY-ACIDS) 1 GM CAPSULE (FP) PO SCH ×2 (10:28→22:22)
[2019-06-17] MEDS: NIFEdipine E.R 60 MG TABLET (UD) PO SCH (10:28)
--- NOTE | 2019-06-17 13:12 | PN ---
[facility] CIWA - CIWA Score Nausea/Vomitin-No Nausea/No Vomiting Muscle Tremors: 2 Anxiety: 2 Agitation: 2 Paroxysmal Sweats: 1-Minimal Palms Moist Orientation: 0-Oriented Tacttile Disturbances: 0-None Auditory Disturbances: 0-None Visual Disturbances: 0-None Headache: 0-None Present CIWA-Ar Total Score: 7 [facility] Progress Note (SOAP) Subjective: 53 years old male admitted on 06/14/19 for acute alcohol withdrawal sx management reporting right toe nail black dot from injury "weeks" ago treated at ER can not remember the name of the hospital "they said leave it do not do anything" right foot great toe 2mm black dot noted nail and skin intact no erythema no swell no bleed no exudation denies pain "get rid of black dot" full range of motion emotional encourage to leave it along avoid irritation Objective: 06/17/19 13:19 Vital Signs Temperature 96.9 F L 06/17/19 09:24 Pulse Rate 89 06/17/19 09:24 Respiratory Rate 18 06/17/19 09:24 Blood Pressure 128/85 06/17/19 09:24 O2 Sat by Pulse Oximetry (%) Laboratory Last Values WBC 4.4 K/mm3 (4.0-10.0) 06/15/19 08:00 RBC 4.74 M/mm3 (4.00-5.60) 06/15/19 08:00 Hgb 14.5 GM/dL (11.7-16.9) 06/15/19 08:00 Hct 42.6 % (35.4-49) 06/15/19 08:00 MCV 89.8 fl (80-96) 06/15/19 08:00 MCH 30.6 pg (25.7-33.7) 06/15/19 08:00 MCHC 34.1 g/dl (32.0-35.9) 06/15/19 08:00 RDW 13.4 % (11.9-15.9) 06/15/19 08:00 Plt Count 187 K/MM3 (134-434) 06/15/19 08:00 MPV 10.1 fl (7.5-11.1) 06/15/19 08:00 Sodium 141 mmol/L (136-145) 06/15/19 08:00 Potassium 3.9 mmol/L (3.5-5.1) 06/15/19 08:00 Chloride 106 mmol/L (98-107) 06/15/19 08:00 Carbon Dioxide 30 mmol/L (21-32) 06/15/19 08:00 Anion Gap 5 MMOL/L (8-16) L 06/15/19 08:00 BUN 8.8 mg/dL (7-18) 06/15/19 08:00 Creatinine 0.7 mg/dL (0.55-1.3) 06/15/19 08:00 Est GFR (CKD-EPI)AfAm 126.64 06/15/19 08:00 Est GFR (CKD-EPI)NonAf 109.27 06/15/19 08:00 POC Glucometer 277 UNITS (80-120) 06/17/19 05:22 Random Glucose 261 mg/dL (74-106) H 06/15/19 08:00 Calcium 8.6 mg/dL (8.5-10.1) 06/15/19 08:00 Total Bilirubin 0.4 mg/dL (0.2-1) 06/15/19 08:00 AST 13 U/L (15-37) L 06/15/19 08:00 ALT 23 U/L (13-61) 06/15/19 08:00 Alkaline Phosphatase 66 U/L (45-117) 06/15/19 08:00 Total Protein 6.8 g/dl (6.4-8.2) 06/15/19 08:00 Albumin 3.8 g/dl (3.4-5.0) 06/15/19 08:00 RPR Titer Nonreactive (NONREACTIVE) 06/15/19 08:00 HIV 1&2 Ag/Ab, 4th Gen Non reactive (Non Reactive) 06/15/19 06:00 HIV 1&2 Antibody Screen Cancelled 06/15/19 08:00 HIV P24 Antigen Cancelled 06/15/19 08:00 lab noted recommend the patient follow up with endocranologist for eyes and feet examine routinely 06/17/19 13:20 Assessment: 06/17/19 13:21 alcohol withdrawal sx Plan: continue librium detox regimen
[2019-06-17] MEDS: THIAMINE HCL 100 MG TABLET (FP) PO SCH (22:22)
[2019-06-17] MEDS: hydrOXYzine PAMOATE 25 MG CAPSULE (FP) PO PRN (22:24)
[2019-06-17] MEDS: NICOTINE POLACRILEX 2 MG GUM BUC PRN (22:26)
[2019-06-18] MEDS ORDERED: chlordiazePOXIDE HCL 10 MG CAPSULE PO SCH (05:00)
[2019-06-18] MEDS: INSULIN SLIDING SCALE (NOVOLOG) 1 VIAL SQ SCH (07:52)
[2019-06-18 09:10] VITALS: BP 133/94; PULSE 84; TEMP 97.1
[2019-06-18] MEDS: OMEGA-3 ACID ETHYL ESTERS (FATTY-ACIDS) 1 GM CAPSULE (FP) PO SCH (10:08)
[2019-06-18] MEDS: NIFEdipine E.R 60 MG TABLET (UD) PO SCH (10:08)
[2019-06-18] MEDS: DOCUSATE SODIUM 100 MG CAPSULE (FP) PO SCH (10:08)
[2019-06-18] MEDS: PRENATAL VITAMINS W/ FOLIC ACID TABLET (FP) PO SCH (10:08)
[2019-06-18] MEDS: CLOTRIMAZOLE 1% CREAM 15 GM TUBE TP SCH (10:08)
[2019-06-18] MEDS: hydrOXYzine PAMOATE 25 MG CAPSULE (FP) PO PRN (10:10)
--- NOTE | 2019-06-18 15:31 | DS ---
[facility] Detox Discharge Summary Admission Date: 06/14/19 Discharge Date: 06/18/19 - History Present History: Alcohol Dependence Additional Comments: 53 years old male admitted on 06/14/19 for acute alcohol withdrawal sx management doing well with librium detox regimen no complication throughout the detox stay patient prefers to be discharged one day early today that he wants to return home for personal belonging preparing for [facility] admission denies dizziness no shortness of breathe no nausea no vamiting Pertinent Past History: diabetes II hypertension hyperlipidemia patient agrees [facility] - Physical Exam Results Vital Signs: Vital Signs Temperature 97.1 F L 06/18/19 09:10 Pulse Rate 84 06/18/19 09:10 Respiratory Rate 18 06/18/19 09:10 Blood Pressure 133/94 06/18/19 09:10 O2 Sat by Pulse Oximetry (%) Pertinent Admission Physical Exam Findings: alcohol withdrawal s Laboratory Last Values WBC 4.4 K/mm3 (4.0-10.0) 06/15/19 08:00 RBC 4.74 M/mm3 (4.00-5.60) 06/15/19 08:00 Hgb 14.5 GM/dL (11.7-16.9) 06/15/19 08:00 Hct 42.6 % (35.4-49) 06/15/19 08:00 MCV 89.8 fl (80-96) 06/15/19 08:00 MCH 30.6 pg (25.7-33.7) 06/15/19 08:00 MCHC 34.1 g/dl (32.0-35.9) 06/15/19 08:00 RDW 13.4 % (11.9-15.9) 06/15/19 08:00 Plt Count 187 K/MM3 (134-434) 06/15/19 08:00 MPV 10.1 fl (7.5-11.1) 06/15/19 08:00 Sodium 141 mmol/L (136-145) 06/15/19 08:00 Potassium 3.9 mmol/L (3.5-5.1) 06/15/19 08:00 Chloride 106 mmol/L (98-107) 06/15/19 08:00 Carbon Dioxide 30 mmol/L (21-32) 06/15/19 08:00 Anion Gap 5 MMOL/L (8-16) L 06/15/19 08:00 BUN 8.8 mg/dL (7-18) 06/15/19 08:00 Creatinine 0.7 mg/dL (0.55-1.3) 06/15/19 08:00 Est GFR (CKD-EPI)AfAm 126.64 06/15/19 08:00 Est GFR (CKD-EPI)NonAf 109.27 06/15/19 08:00 POC Glucometer 363 UNITS (80-120) 06/17/19 16:26 Random Glucose 261 mg/dL (74-106) H 06/15/19 08:00 Calcium 8.6 mg/dL (8.5-10.1) 06/15/19 08:00 Total Bilirubin 0.4 mg/dL (0.2-1) 06/15/19 08:00 AST 13 U/L (15-37) L 06/15/19 08:00 ALT 23 U/L (13-61) 06/15/19 08:00 Alkaline Phosphatase 66 U/L (45-117) 06/15/19 08:00 Total Protein 6.8 g/dl (6.4-8.2) 06/15/19 08:00 Albumin 3.8 g/dl (3.4-5.0) 06/15/19 08:00 RPR Titer Nonreactive (NONREACTIVE) 06/15/19 08:00 HIV 1&2 Ag/Ab, 4th Gen Non reactive (Non Reactive) 06/15/19 06:00 HIV 1&2 Antibody Screen Cancelled 06/15/19 08:00 HIV P24 Antigen Cancelled 06/15/19 08:00 lab noted alert oriented x 3 S1S2 regular no wheezing abdomen soft none tender - Treatment Hospital Course: Detox Protocol Followed, Detoxed Safely, Responded well, Discharged Condition Good, Rehab Referral Accepted Patient has Accepted a Rehab Referral to: [facility] - Medication Discharge Medications: Ambulatory Orders Docusate Sodium [Stool Softener] 100 mg PO BID #60 capsule 04/14/19 Zachary-3 Acid Ethyl Esters [Lovaza -] 1,000 mg PO BID #60 cap 04/14/19 Metformin HCl [Glucophage] 1,000 mg PO DAILY 06/14/19 Nifedipine [Procardia Xl] 60 mg PO DAILY #30 tab.[id number] 06/18/19 metFORMIN XR [Glucophage Xr -] 1,000 mg PO DAILY@0700 #30 tab.sr.[id number] 06/18/19 - Diagnosis (1) Alcohol dependence with uncomplicated withdrawal Status: Acute (2) DM Diabetes mellitus type 2 Status: Chronic (3) Essential hypertension Status: Chronic (4) Hypercholesterolemia Status: Chronic (5) Nicotine dependence Status: Acute Qualifiers: Nicotine product type: cigarettes Substance use status: in withdrawal Qualified Code(s): F17.213 - Nicotine dependence, cigarettes, with withdrawal (6) Obesity (BMI 30.0-34.9) Status: Chronic (7) Substance induced mood disorder Status: Suspected - AMA Did Patient Leave Against Medical Advice: No
[2019-06-19] MEDS ORDERED: chlordiazePOXIDE HCL 10 MG CAPSULE PO ONE (05:00)
== END 2019-06-18 11:38 | disposition home or self-care (01) | DRG 897 ==
LOC: YASAS 10:01 → Y3N 12:14
PROVIDERS: ADMIT Surgery; ATTEND Surgery
PROC: HZ2ZZZZ Detoxification Services for Substance Abuse Treatment (ICD-10-PCS; principal; 2019-06-14)
DX: F10.230 Alcohol dependence with withdrawal, uncomplicated (principal); F13.230 Sedative, hypnotic or anxiolytic dependence with withdrawal, uncomplicated; F12.20 Cannabis dependence, uncomplicated; F17.210 Nicotine dependence, cigarettes, uncomplicated; F19.24 Other psychoactive substance dependence with psychoactive substance-induced mood disorder; I10 Essential (primary) hypertension; E11.9 Type 2 diabetes mellitus without complications; E78.00 Pure hypercholesterolemia, unspecified; B35.3 Tinea pedis; K08.109 Complete loss of teeth, unspecified cause, unspecified class; E66.9 Obesity, unspecified; Z68.31 Body mass index [BMI] 31.0-31.9, adult; Z79.84 Long term (current) use of oral hypoglycemic drugs; Z91.14 Patient's other noncompliance with medication regimen
CPT/HCPCS: 36415; 80053; 82962; 85027; 86593; 87389

== ENCOUNTER 2019-07-02 14:59 | Inpatient (IN) | payer OTHER ==
[2019-07-02 17:35] VITALS: BMI 32.2
--- NOTE | 2019-07-02 18:48 | HP ---
"CIWA Score - Admission Criteria OASAS Guidelines: Admission for Medically Managed Detox: Requires at least one of the followin. CIWA greater than 12 2. Seizures within the past 24 hours 3. Delirium tremens within the past 24 hours 4. Hallucinations within the past 24 hours 5. Acute intervention needed for co occurring medical disorder 6. Acute intervention needed for co occurring psychiatric disorder 7. Severe withdrawal that cannot be handled at a lower level of care (continued vomiting, continued diarrhea, abnormal vital signs) requiring intravenous medication and/or fluids 8. Admission ROS [facility] Chief Complaint: Here for rehab. Allergies/Adverse Reactions: Allergies Allergy/AdvReac Type Severity Reaction Status Date / Time Fish Containing Products Allergy Severe Rash Verified 07/02/19 17:25 lactose AdvReac Severe diarrhea Verified 07/02/19 17:25 melatonin AdvReac Intermediate depressed Verified 07/02/19 17:25 trazodone AdvReac Intermediate depression Verified 07/02/19 17:25 History of Present Illness: Patient has multiple admissions for detox/rehab for alcohol and marijuana. 53 y/o discharged from [facility] detox on 06/18, after being treated for alcohol and benzo use disorder. Patient presents today for rehab. Alcohol use began at age 19. [facility] has not had a drink since 06/15/19. One blackout 12 years ago. Denies seizures or overdoses. Marijuana use began at age 19. [facility] did relapse marijuana. Last used 4 days ago. Nicotine use - stopped x 9 months. PMHx: HTN, DM2 (on metformin), HLD MHHx: Anxiety disorder/panic attacks; Denies depression. Denies thoughts of harming self or others. [facility] has appt w/ PCP on 07/11 @ and dentist on 07/18 @ [facility]. SHx: Lives in a hotel. On disability and SSI for anxiety. Denies legal issues. Search Terms: Sd Carrasco, 1965 Search Date: 07/02/2019 06:51:49 PM The Drug Utilization Report below displays all of the controlled substance prescriptions, if any, that your patient has filled in the last twelve months. The information displayed on this report is compiled from pharmacy submissions to the Department, and accurately reflects the information as submitted by the pharmacies. This report was requested by: Jeannie Lopez | Reference #: [id number] There are no results for the search terms that you entered. Exam Limitations: No Limitations - Ebola screening Have you traveled outside of the country in the last 21 days: No Have you had contact with anyone from an Ebola affected area: No Have you been sick,other than usual withdrawal symptoms: No (Denies measles exposure) Do you have a fever: No - Review of Systems Constitutional: No Symptoms Reported EENT: reports: Dental Problems (No teeth. Chews and swallows ok.) Respiratory: reports: SOB with Exertion Cardiac: reports: Palpitations (r/t anxiety attacks) GI: reports: Blood Streaked Bowels (Small streak 2 weeks ago r/t really hard BM. ) : reports: No Symptoms Reported Musculoskeletal: reports: No Symptoms Reported Integumentary: reports: Other (Rash on toes) Neuro: reports: No Symptoms reported Endocrine: reports: No Symptoms Reported Hematology: reports: No Symptoms Reported Psychiatric: reports: Judgement Intact, Orientated x3, Anxious Patient History - Patient Medical History Hx Anemia: No Hx Asthma: No Hx Chronic Obstructive Pulmonary Disease (COPD): No Hx Cancer: No Hx Cardiac Disorders: No Hx Congestive Heart Failure: No Hx Hypertension: Yes (on meds) Hx Hypercholesterolemia: Yes (non compliance) Hx Pacemaker: No HX Cerebrovascular Accident: No Hx Seizures: No Hx Dementia: No Hx Diabetes: Yes (on meds) Hx Gastrointestinal Disorders: No Hx Liver Disease: No Hx Genitourinary Disorders: No Hx Sexually Transmitted Disorders: No Hx Renal Disease (ESRD): No Hx Thyroid Disease: No Hx Human Immunodeficiency Virus (HIV): No (NEGATIVE HX last 12/24) Hx Hepatitis C: No Hx Depression: Yes (anxiety/panic disorder - hx seeing psych) Hx Suicide Attempt: No Hx Bipolar Disorder: No Hx Schizophrenia: No - Patient Surgical History Past Surgical History: No Hx Neurologic Surgery: No Hx Cataract Extraction: No Hx Cardiac Surgery: No Hx Lung Surgery: No Hx Breast Surgery: No Hx Breast Biopsy: No Hx Abdominal Surgery: No Hx Appendectomy: No Hx Cholecystectomy: No Hx Genitourinary Surgery: No Hx Section: No Hx Orthopedic Surgery: No Hx Hysterectomy: No Anesthesia Reaction: No - PPD History Previous Implant?: Yes Documented Results: Negative w/proof Implanted On Prior R Admission?: Yes Date: 11/07/18 Results: 0 mm PPD to be Administered?: No - Smoking Cessation Smoking history: Former smoker Have you smoked in the past 12 months: Yes Aproximately how many cigarettes per day: 0 (No smoking for 9 months) If you are a former smoker, when did you quit?: 06/2018 Cigars Per Day: 0 Hx Chewing Tobacco Use: No Initiated information on smoking cessation: No 'Breaking Loose' booklet given: 07/02/19 - Substance & Tx. History Hx Alcohol Use: Yes Hx Substance Use: Yes Substance Use Type: Alcohol, Cocaine, Marijuana, Tranquilizers Hx Substance Use Treatment: Yes (detox, rehab ) - Substances abused Alcohol Substance route: Oral Frequency: 3-6 times per week Amount used: 06/16OZ, 1 pint OF VODKA Age of first use: 24 Date of last use: 06/14/19 Marijuana/Hashish Substance route: Smoking Frequency: 1-3 times last 30 days Amount used: $50 Age of first use: 19 Date of last use: 06/14/19 Alprazolam (Xanax) Substance route: Oral Frequency: 1-2 times per week Amount used: 2 sticks Age of first use: 51 Date of last use: 06/12/19 Other Other (specify): Xanax Substance route: Oral Frequency: 3-6 times per week Amount used: 2 sticks (2mg) Age of first use: 53 Date of last use: 06/12/19 Cocaine Substance route: Inhalation Frequency: 1-2 times per week Amount used: $40 Age of first use: 24 Date of last use: 06/09/19 Family Disease History - Family Disease History Family Disease History: Diabetes: Father (living no contact - alcohol,sober), Mother (living - no contact -alcohol,sober), Other: Father, Mother, Brother ( seven half brothers), Sister (one - non contact ? etho) Admission Physical Exam S - Vital Signs Vital Signs: Vital Signs - 24 hr 07/02/19 17:24 Temperature 97.7 F Pulse Rate 75 Respiratory 16 Rate Blood Pressure 133/67 - Physical General Appearance: Yes: Nourished, Anxious HEENTM: Yes: EOMI (Jerking movement of eyes upon lateral gaze), Hearing grossly Normal, Normocephalic, Normal Voice, JACKLYN, Pharynx Normal Respiratory: Yes: Lungs Clear, Normal Breath Sounds, No Respiratory Distress Neck: Yes: No masses,lesions,Nodules, Supple Breast: Yes: Breast Exam Deferred Cardiology: Yes: Regular Rate, S1, S2 (split.), Irregular Abdominal: Yes: Non Tender, Soft, Protuberent (Increased abdominal adiposity) Genitourinary: Yes: Within Normal Limits Back: Yes: Normal Inspection Musculoskeletal: Yes: full range of Motion, Gait Steady Extremities: Yes: Normal Capillary Refill, Normal Range of Motion 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: Yes: vehicle body sander II-XII NML intact (Jerking movement of eyes upon lateral gaze) Integumentary: Yes: Normal Color, Dry, Warm, Other (Dry flaky skin of toes and feet. Thickened toe nails.) - Diagnostic (1) Alcohol use disorder, moderate, in early remission Current Visit: Yes Status: Acute (2) Sedative, hypnotic or anxiolytic use disorder, mild, in early remission Current Visit: Yes Status: Acute (3) Nystagmus Current Visit: Yes Status: Acute (4) Tinea pedis Current Visit: No Status: Chronic Qualifiers: Laterality: bilateral Qualified Code(s): B35.3 - Tinea pedis (5) Cannabis dependence Current Visit: Yes Status: Chronic (6) DM Diabetes mellitus type 2 Current Visit: Yes Status: Chronic Comment: bgm = (7) Essential hypertension Current Visit: No Status: Chronic (8) Hypercholesterolemia Current Visit: Yes Status: Chronic (9) No natural teeth Current Visit: Yes Status: Chronic (10) Obesity (BMI 30.0-34.9) Current Visit: Yes Status: Chronic (11) Abnormal cardiac sounds Current Visit: Yes Status: Chronic Cleared for Admission [facility] - Detox or Rehab Claeared for Rehab Admission: Yes Breathalyzer - Breathalyzer Breathalyzer: 0 Urine Drug Screen - Test Device Lot number: [id number] Expiration date: 04/04/21 - Control Is test valid?: Yes - Results Drug screen NEGATIVE: No Urine drug screen results: THC-Marijuana, BZO-Benzodiazepines Inpatient Rehab Admission - Rehab Decision to Admit Inpatient rehab admission?: Yes - Initial Determination Are CD services needed?: Yes Free of communicable disease: Yes Not in need of hospitalization: Yes - Rehab Admission Criteria Previous failed treatment: Yes Poor recovery environment: Yes Comorbidities: Yes Lacks judgement: No Patient is meeting Inpatient Rehab admission criteria:: Yes"
[2019-07-02] MEDS ORDERED: IBUPROFEN 400 MG TABLET (FP) PO PRN (19:15)
[2019-07-02] MEDS ORDERED: MAGNESIUM HYDROX 2400MG/30ML ORAL SUSPENSION 30 ML CUP PO PRN (19:15)
[2019-07-02] MEDS ORDERED: MENTHOL/PHENOL 1 EACH UD MM PRN (19:15)
[2019-07-02] MEDS ORDERED: guaiFENesin 200 MG/10 ML 10 ML UNIT-DOSE CUPS PO PRN (19:15)
[2019-07-02] MEDS ORDERED: MAG HYDROX/AL HYDROX/SIMETH 30 ML UNIT-DOSE CUP PO PRN (19:15)
[2019-07-02] MEDS ORDERED: P-EPHED 60MG/TRIPROLIDI 2.5MG TABLET PO PRN (19:15)
[2019-07-02] MEDS ORDERED: LOPERAMIDE HCL 2 MG CAPSULE PO PRN (19:15)
[2019-07-02] MEDS ORDERED: ACETAMINOPHEN 325 MG TABLET (FP) PO PRN (19:15)
[2019-07-02] MEDS ORDERED: MAGNESIUM CITRATE 300 ML BOTTLE PO PRN (19:15)
[2019-07-02] MEDS: DOCUSATE SODIUM 100 MG CAPSULE (FP) PO SCH (21:53)
[2019-07-02] MEDS: TOLNAFTATE 1% CREAM 15 GM TUBE TP SCH (21:53)
[2019-07-02] MEDS: THIAMINE HCL 100 MG TABLET (FP) PO SCH (21:53)
[2019-07-02] MEDS ORDERED: INSULIN (NOVOLOG) ASPART 100 UNITS/ML 10ML VIAL ONE (21:57)
[2019-07-02] MEDS: INSULIN SLIDING SCALE (NOVOLOG) 1 VIAL SQ SCH (21:58)
[2019-07-02] MEDS: hydrOXYzine PAMOATE 25 MG CAPSULE (FP) PO PRN (21:59)
[2019-07-02] MEDS: OMEGA-3 ACID ETHYL ESTERS (FATTY-ACIDS) 1 GM CAPSULE (FP) PO SCH (23:00)
[2019-07-03] MEDS: metFORMIN HCL 500 MG TABLET (FP) PO SCH ×2 (06:15→16:48)
[2019-07-03] MEDS ORDERED: INSULIN (NOVOLOG) ASPART 100 UNITS/ML 10ML VIAL ONE ×3 (07:47→20:42)
[2019-07-03] MEDS: INSULIN SLIDING SCALE (NOVOLOG) 1 VIAL SQ SCH ×4 (07:50→21:37)
[2019-07-03] MEDS: DOCUSATE SODIUM 100 MG CAPSULE (FP) PO SCH ×2 (10:30→21:35)
[2019-07-03] MEDS: NIFEdipine E.R 60 MG TABLET (UD) PO SCH (10:30)
[2019-07-03] MEDS: PRENATAL VITAMINS W/ FOLIC ACID TABLET (FP) PO SCH (10:30)
[2019-07-03] MEDS: TOLNAFTATE 1% CREAM 15 GM TUBE TP SCH ×2 (10:32→21:36)
--- NOTE | 2019-07-03 10:34 | EKG ---
Test Reason : Blood Pressure : / mmHG Vent. Rate : 059 BPM Atrial Rate : 059 BPM P-R Int : 146 ms QRS Dur : 086 ms QT Int : 408 ms P-R-T Axes : 047 -03 -05 degrees QTc Int : 403 ms SINUS BRADYCARDIA OTHERWISE NORMAL ECG WHEN COMPARED WITH ECG OF 19-JUN-2018 20:05, NO SIGNIFICANT CHANGE WAS FOUND Confirmed by ERIC LAND MD ([id number]) on 07/03/2019 10:34:17 AM Referred By: DANIEL SNOW Confirmed By:ERIC LAND MD
[2019-07-03] MEDS: OMEGA-3 ACID ETHYL ESTERS (FATTY-ACIDS) 1 GM CAPSULE (FP) PO SCH ×2 (10:48→21:35)
[2019-07-03] MEDS ORDERED: INSULIN SLIDING SCALE (NOVOLOG) 1 VIAL SQ ONE (12:10)
[2019-07-03 14:26] LABS: HEMATOCRIT 39.8 % (35.4-49); MCH 30.9 pg (25.7-33.7); MCHC 35.1 g/dl (32.0-35.9); MEAN CELL VOLUME 88.1 fl (80-96); MEAN PLT VOLUME 10.1 fl (7.5-11.1); PLATELET COUNT 202 K/MM3 (134-434); RBC 4.52 M/mm3 (4.00-5.60); RDW 13.6 % (11.9-15.9); WHITE BLOOD COUNT 5.1 K/mm3 (4.0-10.0)
[2019-07-03 14:38] LABS: ALBUMIN 3.6 g/dl (3.4-5.0); BILIRUBIN,TOTAL 0.5 mg/dL (0.2-1); BLOOD UREA NITROGEN 6.9 mg/dL (7-18); CALCIUM 8.6 mg/dL (8.5-10.1); CREATININE 0.8 mg/dL (0.55-1.3); POTASSIUM 4.2 mmol/L (3.5-5.1); TOT PROT 6.5 g/dl (6.4-8.2)
[2019-07-03] MEDS: THIAMINE HCL 100 MG TABLET (FP) PO SCH (21:35)
[2019-07-03] MEDS: hydrOXYzine PAMOATE 25 MG CAPSULE (FP) PO PRN (21:36)
[2019-07-04] MEDS: metFORMIN HCL 500 MG TABLET (FP) PO SCH (06:26)
[2019-07-04] MEDS: INSULIN SLIDING SCALE (NOVOLOG) 1 VIAL SQ SCH ×4 (07:16→21:44)
[2019-07-04] MEDS: TOLNAFTATE 1% CREAM 15 GM TUBE TP SCH ×2 (10:51→21:44)
[2019-07-04] MEDS: PRENATAL VITAMINS W/ FOLIC ACID TABLET (FP) PO SCH (10:52)
[2019-07-04] MEDS: NIFEdipine E.R 60 MG TABLET (UD) PO SCH (10:52)
[2019-07-04] MEDS: OMEGA-3 ACID ETHYL ESTERS (FATTY-ACIDS) 1 GM CAPSULE (FP) PO SCH ×2 (10:52→21:44)
[2019-07-04] MEDS: DOCUSATE SODIUM 100 MG CAPSULE (FP) PO SCH ×2 (10:52→21:43)
[2019-07-04] MEDS: hydrOXYzine PAMOATE 25 MG CAPSULE (FP) PO PRN ×2 (10:53→21:46)
--- NOTE | 2019-07-04 12:44 | PN ---
[facility] Progress Note Note: Nurse Reports this pt refusing insulin coverage. saw patient who states he was on higher dosage of metformin and not metformin 500 mg dose and does not want insulin stating "i don't take insulin at home. my doctor says take the metformin and do exercise". On review of pt's outside [facility] pharmacy, pt had been prescribed Metformin 850 mg po daily up till date. Last posted on 06/25/19 for # 30 for 30 days. Pt is requesting Metformin 1000 mg po bid. Laboratory Tests 07/02/19 07/02/19 07/03/19 20:44 21:55 06:13 WBC RBC Hgb Hct MCV MCH MCHC RDW Plt Count MPV Sodium Potassium Chloride Carbon Dioxide Anion Gap BUN Creatinine Est GFR (CKD-EPI)AfAm Est GFR (CKD-EPI)NonAf POC Glucometer 307 363 250 Random Glucose Calcium Total Bilirubin AST ALT Alkaline Phosphatase Total Protein Albumin 07/03/19 07/03/19 07/03/19 09:30 09:30 11:41 WBC 5.1 RBC 4.52 Hgb 14.0 Hct 39.8 MCV 88.1 MCH 30.9 MCHC 35.1 RDW 13.6 Plt Count 202 MPV 10.1 Sodium 140 Potassium 4.2 Chloride 103 Carbon Dioxide 33 H Anion Gap 4 L BUN 6.9 L Creatinine 0.8 Est GFR (CKD-EPI)AfAm 119.88 Est GFR (CKD-EPI)NonAf 103.43 POC Glucometer 338 Random Glucose 292 H Calcium 8.6 Total Bilirubin 0.5 AST 17 ALT 25 Alkaline Phosphatase 64 Total Protein 6.5 Albumin 3.6 07/03/19 07/04/19 07/04/19 16:47 06:24 11:51 WBC RBC Hgb Hct MCV MCH MCHC RDW Plt Count MPV Sodium Potassium Chloride Carbon Dioxide Anion Gap BUN Creatinine Est GFR (CKD-EPI)AfAm Est GFR (CKD-EPI)NonAf POC Glucometer 317 253 361 Random Glucose Calcium Total Bilirubin AST ALT Alkaline Phosphatase Total Protein Albumin A/P type 2 DM-uncontrolled MDM:reviewed past [facility] admission dm medication therapy of this patient with the Alissa landin Rp with findings that pt had been on several different combinations of metformin doses. D/w pt and will change metformin to 850 mg po bidac Continue to monitor blood sugar as scheduled. [facility] pharmacy [address] [place] [address] Pt Reports he has appointments coming up with his providers(hard copy in his chart): 1.[facility] Date;07/11/19 Time:10:[address] Hesham Humphrey M.D 2.[facility] for Full Denture consult @[address] [place] [address] Date:Jul Time:10:00 A.M Pt has a copy of these appointment schedules.
[2019-07-04 18:11] LABS: PH,URINE 6.5 (5.0-8.0); URINE APPEARANCE Error; URINE BILIRUBIN NEGATIVE (NEGATIVE); URINE COLOR YELLOW; URINE GLUCOSE (UA) 3+ (NEGATIVE); URINE KETONE TRACE (NEGATIVE); URINE LEUK ESTERASE NEGATIVE (NEGATIVE); URINE NITRITE NEGATIVE (NEGATIVE); URINE PROTEIN NEGATIVE (NEGATIVE)
[2019-07-04] MEDS: THIAMINE HCL 100 MG TABLET (FP) PO SCH (21:44)
[2019-07-05] MEDS: INSULIN SLIDING SCALE (NOVOLOG) 1 VIAL SQ SCH ×4 (07:59→21:41)
[2019-07-05] MEDS: PRENATAL VITAMINS W/ FOLIC ACID TABLET (FP) PO SCH (10:17)
[2019-07-05] MEDS: DOCUSATE SODIUM 100 MG CAPSULE (FP) PO SCH ×2 (10:17→21:41)
[2019-07-05] MEDS: OMEGA-3 ACID ETHYL ESTERS (FATTY-ACIDS) 1 GM CAPSULE (FP) PO SCH ×2 (10:18→21:41)
[2019-07-05] MEDS: NIFEdipine E.R 60 MG TABLET (UD) PO SCH (10:18)
[2019-07-05] MEDS: TOLNAFTATE 1% CREAM 15 GM TUBE TP SCH ×2 (10:18→21:42)
[2019-07-05] MEDS ORDERED: INSULIN (NOVOLOG) ASPART 100 UNITS/ML 10ML VIAL ONE ×2 (11:55→17:14)
[2019-07-05] MEDS: THIAMINE HCL 100 MG TABLET (FP) PO SCH (21:41)
[2019-07-05] MEDS: hydrOXYzine PAMOATE 25 MG CAPSULE (FP) PO PRN (21:42)
[2019-07-06] MEDS: INSULIN SLIDING SCALE (NOVOLOG) 1 VIAL SQ SCH (07:32)
[2019-07-06 08:12] VITALS: BP 131/87; PULSE 76; TEMP 97.7
--- NOTE | 2019-07-06 10:10 | PN ---
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
--- NOTE | 2019-07-06 10:17 | DS ---
[facility] Rehab Discharge Summary - [facility] Rehab Discharge Summary Admission Date: 07/02/19 Discharge Date: 07/06/19 - History Present History: Alcohol dependence, Cannabis dependence, Sedative dependence Additional Comments: patient left AMA Pertinent Past History: type 2 dm hypertension hypercholesterolemia - Discharge Physical Exam Vital Signs: Vital Signs Temperature 97.7 F 07/06/19 08:11 Pulse Rate 76 07/06/19 08:11 Respiratory Rate 18 07/06/19 08:11 Blood Pressure 131/87 07/06/19 08:11 O2 Sat by Pulse Oximetry (%) Pertinent Admission Physical Exam Findings: type 2 dm hypecholesterolemia hypertension - Treatment Discharge Condition: Discharge condition good Hospital Course: patient has fluctuation of blood glucose,did not want to be on insulin,stated he will follow up with his PMD for diabetic management, did not want to stay for completion of rehab,stated he has appointment with his pmd for medical management,hypertension,diabetic and hypercholesterolemia, has medications waiting for him and at pharmacy ,patient signed release AMA - Medication Discharge Medications: Ambulatory Orders Docusate Sodium [Stool Softener] 100 mg PO BID #60 capsule 04/14/19 [place]-3 Acid Ethyl Esters [Lovaza -] 1,000 mg PO BID #60 cap 04/14/19 Metformin HCl [Glucophage] 500 mg PO BIDAC 06/14/19 Nifedipine [Procardia Xl] 60 mg PO DAILY #30 tab.er.24 06/18/19 metFORMIN HCL [Metformin HCl] 850 mg PO DAILY 07/04/19 - Medication-Assisted Treatment (MAT) Medication-Assisted Treatment (MAT): No - Discharge Instructions Diet, activity, other medical instructions: Diet: Activity: Other medical instructions: - Diagnosis (1) Alcohol use disorder, moderate, in early remission Current Visit: Yes Status: Acute (2) Sedative, hypnotic or anxiolytic use disorder, mild, in early remission Current Visit: Yes Status: Acute (3) Cannabis dependence Current Visit: Yes Status: Chronic (4) DM Diabetes mellitus type 2 Current Visit: Yes Status: Chronic (5) Hypercholesterolemia Current Visit: Yes Status: Chronic (6) No natural teeth Current Visit: Yes Status: Chronic (7) Hyperglycemia Current Visit: No Status: Acute (8) Nicotine dependence Current Visit: No Status: Acute Qualifiers: Nicotine product type: cigarettes Substance use status: in withdrawal Qualified Code(s): F17.213 - Nicotine dependence, cigarettes, with withdrawal (9) Essential hypertension Current Visit: No Status: Chronic (10) Tinea pedis Current Visit: No Status: Chronic Qualifiers: Laterality: bilateral Qualified Code(s): B35.3 - Tinea pedis - Follow-up Referral Minutes to complete discharge: 20 - AMA Did Patient Leave Against Medical Advice: Yes
== END 2019-07-06 09:52 | disposition left against medical advice (07) | DRG 894 ==
LOC: YASAS 14:59 → Y5N 19:41
PROVIDERS: ADMIT Neuromusculoskeletal Medicine & OMM; ATTEND Neuromusculoskeletal Medicine & OMM
PROC: HZ42ZZZ Group Counseling for Substance Abuse Treatment, Cognitive-Behavioral (ICD-10-PCS; principal; 2019-07-02)
DX: F10.20 Alcohol dependence, uncomplicated (principal); F13.20 Sedative, hypnotic or anxiolytic dependence, uncomplicated; F12.20 Cannabis dependence, uncomplicated; F17.213 Nicotine dependence, cigarettes, with withdrawal; I10 Essential (primary) hypertension; E78.00 Pure hypercholesterolemia, unspecified; E11.9 Type 2 diabetes mellitus without complications; Z79.84 Long term (current) use of oral hypoglycemic drugs; B35.3 Tinea pedis; K00.0 Anodontia
CPT/HCPCS: 36415; 80053; 81003; 82962; 85027; 93005; 93010

== ENCOUNTER 2019-07-27 10:50 | Inpatient (IN) | payer OTHER ==
[2019-07-27 15:24] VITALS: BMI 32.2
[2019-07-27] MEDS ORDERED: hydrOXYzine PAMOATE 25 MG CAPSULE (FP) PO PRN (16:48)
[2019-07-27] MEDS ORDERED: MENTHOL/PHENOL 1 EACH UD MM PRN (16:48)
[2019-07-27] MEDS ORDERED: MAGNESIUM CITRATE 300 ML BOTTLE PO PRN (16:48)
[2019-07-27] MEDS ORDERED: BISMUTH SUBSALICYLATE 524 MG/30 ML UD PO PRN (16:48)
[2019-07-27] MEDS ORDERED: METHOCARBAMOL 500 MG TABLET PO PRN (16:48)
[2019-07-27] MEDS ORDERED: MAG HYDROX/AL HYDROX/SIMETH 30 ML UNIT-DOSE CUP PO PRN (16:48)
[2019-07-27] MEDS ORDERED: MELATONIN 5 MG TABLETS PO PRN (16:48)
[2019-07-27] MEDS ORDERED: MAGNESIUM HYDROX 2400MG/30ML ORAL SUSPENSION 30 ML CUP PO PRN (16:48)
[2019-07-27] MEDS ORDERED: IBUPROFEN 400 MG TABLET (FP) PO PRN (16:48)
[2019-07-27] MEDS ORDERED: ACETAMINOPHEN 325 MG TABLET (FP) PO PRN ×2 (16:48)
--- NOTE | 2019-07-27 16:48 | HP ---
CIWA Score Nausea/Vomitin Muscle Tremors: 3 Anxiety: 2 Agitation: 2 Paroxysmal Sweats: 1-Minimal Palms Moist Orientation: 0-Oriented Tacttile Disturbances: 0-None Auditory Disturbances: 0-None Visual Disturbances: 2-Mild Sensitivity Headache: 2-Mild CIWA-Ar Total Score: 14 - Admission Criteria OASAS Guidelines: Admission for Medically Managed Detox: Requires at least one of the followin. CIWA greater than 12 2. Seizures within the past 24 hours 3. Delirium tremens within the past 24 hours 4. Hallucinations within the past 24 hours 5. Acute intervention needed for co occurring medical disorder 6. Acute intervention needed for co occurring psychiatric disorder 7. Severe withdrawal that cannot be handled at a lower level of care (continued vomiting, continued diarrhea, abnormal vital signs) requiring intravenous medication and/or fluids 8. Admission ROS [facility] - HPI Chief Complaint: I NEED TO DETOX, TO GO TO REHAB Allergies/Adverse Reactions: Allergies Allergy/AdvReac Type Severity Reaction Status Date / Time Fish Containing Products Allergy Severe Rash Verified 07/27/19 15:07 lactose AdvReac Severe diarrhea Verified 07/27/19 15:07 melatonin AdvReac Intermediate depressed Verified 07/27/19 15:07 trazodone AdvReac Intermediate depression Verified 07/27/19 15:07 History of Present Illness: IN [facility] 1 MO AGO RETURNS AFTER IMMEDIATE RELAPSE WANTS TO GO TO REHAB - Ebola screening Have you traveled outside of the country in the last 21 days: No (N) Have you had contact with anyone from an Ebola affected area: No - Review of Systems Constitutional: Loss of Appetite, Changes in sleep EENT: reports: No Symptoms Reported Respiratory: reports: No Symptoms reported Cardiac: reports: No Symptoms Reported GI: reports: No Symptoms Reported : reports: No Symptoms Reported Musculoskeletal: reports: No Symptoms Reported Integumentary: reports: No Symptoms Reported Neuro: reports: Headache Endocrine: reports: No Symptoms Reported Hematology: reports: No Symptoms Reported Psychiatric: reports: Anxious Patient History - Patient Medical History Hx Anemia: No Hx Asthma: No Hx Chronic Obstructive Pulmonary Disease (COPD): No Hx Cancer: No Hx Cardiac Disorders: No Hx Congestive Heart Failure: No Hx Hypertension: Yes (on meds) Hx Hypercholesterolemia: Yes (non compliance) Hx Pacemaker: No HX Cerebrovascular Accident: No Hx Seizures: No Hx Dementia: No Hx Diabetes: Yes (on meds) Hx Gastrointestinal Disorders: No Hx Liver Disease: No Hx Genitourinary Disorders: No Hx Sexually Transmitted Disorders: No Hx Renal Disease (ESRD): No Hx Thyroid Disease: No Hx Human Immunodeficiency Virus (HIV): No (NEGATIVE HX last 12/24) Hx Hepatitis C: No Hx Depression: Yes (anxiety/panic disorder - OFF MEDS) Hx Suicide Attempt: No Hx Bipolar Disorder: No Hx Schizophrenia: No - Patient Surgical History Past Surgical History: No Hx Neurologic Surgery: No Hx Cataract Extraction: No Hx Cardiac Surgery: No Hx Lung Surgery: No Hx Breast Surgery: No Hx Breast Biopsy: No Hx Abdominal Surgery: No Hx Appendectomy: No Hx Cholecystectomy: No Hx Genitourinary Surgery: No Hx Section: No Hx Orthopedic Surgery: No Hx Hysterectomy: No Anesthesia Reaction: No - PPD History Date: 11/07/18 Results: 0 mm - Smoking Cessation Smoking history: Former smoker Have you smoked in the past 12 months: Yes Aproximately how many cigarettes per day: 0 (No smoking for 9 months) If you are a former smoker, when did you quit?: 06/2018 Cigars Per Day: 0 Hx Chewing Tobacco Use: No Initiated information on smoking cessation: Yes 'Breaking Loose' booklet given: 07/27/19 - Substances abused Alcohol Substance route: Oral Frequency: 3-6 times per week Amount used: 06/20 OZof beer , 1 pint OF VODKA Age of first use: 24 Date of last use: 07/27/19 Marijuana/Hashish Substance route: Smoking Frequency: 1-3 times last 30 days Amount used: $30 Age of first use: 19 Date of last use: 07/27/19 Alprazolam (Xanax) Substance route: Oral Frequency: 1-2 times per week Amount used: 2 sticks Age of first use: 51 Date of last use: 06/12/19 Other Other (specify): Xanax Substance route: Oral Frequency: 1-2 times per week Amount used: 2 sticks (2mg) Age of first use: 53 Date of last use: 07/21/19 Cocaine Substance route: Inhalation Frequency: 1-2 times per week Amount used: $40 Age of first use: 24 Date of last use: 06/09/19 Admission Physical Exam [facility] - Vital Signs Vital Signs: Vital Signs - 24 hr 07/27/19 15:15 Temperature 97.4 F L Pulse Rate 70 Respiratory 18 Rate Blood Pressure 144/90 - Physical General Appearance: Yes: No Apparent Distress, Tremorous, Anxious HEENTM: Yes: EOMI, Hearing grossly Normal, Normocephalic Respiratory: Yes: Chest Non-Tender, Lungs Clear Neck: Yes: No masses,lesions,Nodules Breast: Yes: Breast Exam Deferred Cardiology: Yes: Regular Rhythm, Regular Rate, S1, S2 Abdominal: Yes: Normal Bowel Sounds, Non Tender Genitourinary: Yes: Within Normal Limits Back: Yes: Within Normal Limits Musculoskeletal: Yes: Within Normal Limits, full range of Motion Extremities: Yes: Normal Capillary Refill, Normal Inspection, Normal Range of Motion, Non-Tender 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: Yes: oncology pharmacist II-XII NML intact, Fully Oriented, Alert, Motor Strength 5/5 - Diagnostic (1) Alcohol dependence with uncomplicated withdrawal Current Visit: Yes Status: Acute (2) DM Diabetes mellitus type 2 Current Visit: Yes Status: Chronic Comment: bgm = (3) Essential hypertension Current Visit: Yes Status: Chronic (4) Sedative, hypnotic or anxiolytic abuse, uncomplicated Current Visit: Yes Status: Chronic Cleared for Admission S - Detox or Rehab [facility] Level of Care: Medically Supervised Detox Regimen/Protocol: Valium Breathalyzer - Breathalyzer Breathalyzer: 0 Urine Drug Screen - Test Device Lot number: [id number] Expiration date: 04/04/21 - Control Is test valid?: Yes - Results Drug screen NEGATIVE: No Urine drug screen results: THC-Marijuana, BZO-Benzodiazepines Inpatient Rehab Admission - Rehab Decision to Admit Inpatient rehab admission?: No
[2019-07-27] MEDS: diazePAM 5 MG TABLET PO PRN (18:25)
[2019-07-27] MEDS: diazePAM 5 MG TABLET PO SCH (23:15)
[2019-07-27] MEDS: THIAMINE HCL 100 MG TABLET (FP) PO SCH (23:15)
[2019-07-27] MEDS: BACITRACIN 0.9 GM PACKET TP SCH (23:15)
[2019-07-28] MEDS: diazePAM 5 MG TABLET PO SCH ×3 (05:39→21:18)
[2019-07-28] MEDS ORDERED: NIFEdipine E.R. 30 MG TABLET (FP) PO SCH (10:00)
[2019-07-28] MEDS ORDERED: PRENATAL VITAMINS W/ FOLIC ACID TABLET (FP) PO SCH (10:00)
[2019-07-28 10:42] LABS: HEMATOCRIT 43.3 % (35.4-49); HEMOGLOBIN 14.7 GM/dL (11.7-16.9); MCH 29.9 pg (25.7-33.7); MCHC 33.8 g/dl (32.0-35.9); MEAN CELL VOLUME 88.5 fl (80-96); MEAN PLT VOLUME 9.9 fl (7.5-11.1); PLATELET COUNT 203 K/MM3 (134-434); RDW 13.7 % (11.9-15.9); WHITE BLOOD COUNT 4.6 K/mm3 (4.0-10.0)
[2019-07-28 10:45] LABS: ALBUMIN 4.1 g/dl (3.4-5.0); BILIRUBIN,TOTAL 0.6 mg/dL (0.2-1); BLOOD UREA NITROGEN 7.4 mg/dL (7-18); CALCIUM 9.1 mg/dL (8.5-10.1); CREATININE 0.7 mg/dL (0.55-1.3); TOT PROT 7.2 g/dl (6.4-8.2)
[2019-07-28] MEDS: diazePAM 5 MG TABLET PO PRN (10:52)
[2019-07-28] MEDS: BACITRACIN 0.9 GM PACKET TP SCH ×2 (10:54→21:19)
--- NOTE | 2019-07-28 11:36 | PN ---
S CIWA - CIWA Score Nausea/Vomitin-No Nausea/No Vomiting Muscle Tremors: 3 Anxiety: 3 Agitation: 3 Paroxysmal Sweats: 2 Orientation: 0-Oriented Tacttile Disturbances: 0-None Auditory Disturbances: 0-None Visual Disturbances: 0-None Headache: 0-None Present CIWA-Ar Total Score: 11 S Progress Note (SOAP) Subjective: sweats i need anti fungal medication for my feet restless anxiety Objective: 07/28/19 11:35 Vital Signs Temperature 100.0 F H 07/28/19 11:01 Pulse Rate 80 07/28/19 11:01 Respiratory Rate 07/28/19 11:01 Blood Pressure 146/98 07/28/19 11:01 O2 Sat by Pulse Oximetry (%) Laboratory Tests 07/28/19 07/28/19 07/28/19 05:38 08:30 08:30 WBC 4.6 RBC 4.90 Hgb 14.7 Hct 43.3 MCV 88.5 MCH 29.9 MCHC 33.8 RDW 13.7 Plt Count 203 MPV 9.9 Sodium 140 Potassium 4.0 Chloride 104 Carbon Dioxide 29 Anion Gap 8 BUN 7.4 Creatinine 0.7 Est GFR (CKD-EPI)AfAm 126.64 Est GFR (CKD-EPI)NonAf 109.27 POC Glucometer 234 Random Glucose 245 H Calcium 9.1 Total Bilirubin 0.6 AST 14 L ALT 26 Alkaline Phosphatase 70 Total Protein 7.2 Albumin 4.1 labs noted aaox3 ambulating no acute distress Assessment: 07/28/19 11:35 withdrawal sx Plan: continue detox montior surgar intake while in our care increase water intake
--- NOTE | 2019-07-28 17:12 | PN ---
S Progress Note Note: Pt states he takes metformin 850mg twice a day- will increase from once to twice a day. f/s 350 today
[2019-07-28] MEDS: THIAMINE HCL 100 MG TABLET (FP) PO SCH (21:18)
[2019-07-29] MEDS ORDERED: diazePAM 5 MG TABLET PO SCH (06:00)
[2019-07-29 06:40] VITALS: BP 109/64; PULSE 70; TEMP 97.5
--- NOTE | 2019-07-29 08:54 | DS ---
[facility] Detox Discharge Summary Admission Date: 07/27/19 Discharge Date: 07/29/19 - History Present History: Alcohol Dependence, Sedative Dependence - Physical Exam Results Vital Signs: Vital Signs Temperature 97.5 F L 07/29/19 06:39 Pulse Rate 70 07/29/19 06:39 Respiratory Rate 18 07/29/19 06:39 Blood Pressure 109/64 07/29/19 06:39 O2 Sat by Pulse Oximetry (%) Pertinent Admission Physical Exam Findings: pt arrived in withdrawals Laboratory Tests 07/28/19 07/28/19 07/28/19 05:38 08:30 08:30 WBC 4.6 RBC 4.90 Hgb 14.7 Hct 43.3 MCV 88.5 MCH 29.9 MCHC 33.8 RDW 13.7 Plt Count 203 MPV 9.9 Sodium 140 Potassium 4.0 Chloride 104 Carbon Dioxide 29 Anion Gap 8 BUN 7.4 Creatinine 0.7 Est GFR (CKD-EPI)AfAm 126.64 Est GFR (CKD-EPI)NonAf 109.27 POC Glucometer 234 Random Glucose 245 H Calcium 9.1 Total Bilirubin 0.6 AST 14 L ALT 26 Alkaline Phosphatase 70 Total Protein 7.2 Albumin 4.1 RPR Titer 07/28/19 07/28/19 07/29/19 08:30 16:56 07:36 WBC RBC Hgb Hct MCV MCH MCHC RDW Plt Count MPV Sodium Potassium Chloride Carbon Dioxide Anion Gap BUN Creatinine Est GFR (CKD-EPI)AfAm Est GFR (CKD-EPI)NonAf POC Glucometer 348 232 Random Glucose Calcium Total Bilirubin AST ALT Alkaline Phosphatase Total Protein Albumin RPR Titer Nonreactive pt is aaox3 ambulating no s/s of withdrawals - Treatment Hospital Course: Detox Protocol Followed, Detoxed Safely, Responded well, Discharged Condition Good, Rehab Referral Accepted Patient has Accepted a Rehab Referral to: pt declined rehab - Medication Discharge Medications: Ambulatory Orders Docusate Sodium [Stool Softener] 100 mg PO BID #60 capsule 04/14/19 [place]-3 Acid Ethyl Esters [Lovaza -] 1,000 mg PO BID #60 cap 04/14/19 Nifedipine [Procardia Xl] 60 mg PO DAILY #30 tab.er.24 06/18/19 metFORMIN HCL [Metformin HCl] 850 mg PO DAILY 07/04/19 - Diagnosis (1) Alcohol dependence with uncomplicated withdrawal Current Visit: Yes Status: Chronic (2) DM Diabetes mellitus type 2 Current Visit: Yes Status: Chronic (3) Essential hypertension Current Visit: Yes Status: Chronic (4) Sedative, hypnotic or anxiolytic abuse, uncomplicated Current Visit: Yes Status: Chronic (5) Nicotine dependence Current Visit: Yes Status: Chronic Qualifiers: Nicotine product type: cigarettes Substance use status: uncomplicated Qualified Code(s): F17.210 - Nicotine dependence, cigarettes, uncomplicated (6) Syncope Current Visit: No Status: Acute Qualifiers: Syncope type: unspecified Qualified Code(s): R55 - Syncope and collapse (7) Cocaine dependence Current Visit: Yes Status: Chronic Qualifiers: Substance use status: uncomplicated Qualified Code(s): F14.20 - Cocaine dependence, uncomplicated (8) Hypercholesterolemia Current Visit: Yes Status: Chronic (9) No natural teeth Current Visit: No Status: Chronic (10) Obesity (BMI 30.0-34.9) Current Visit: Yes Status: Chronic (11) Substance induced mood disorder Current Visit: No Status: Suspected - AMA Did Patient Leave Against Medical Advice: No
[2019-07-30] MEDS ORDERED: diazePAM 5 MG TABLET PO ONE (06:00)
== END 2019-07-29 09:25 | disposition home or self-care (01) | DRG 897 ==
LOC: YASAS 10:50 → Y6N 16:52
PROVIDERS: ADMIT Surgery; ATTEND Surgery
PROC: HZ2ZZZZ Detoxification Services for Substance Abuse Treatment (ICD-10-PCS; principal; 2019-07-27)
DX: F10.230 Alcohol dependence with withdrawal, uncomplicated (principal); F14.20 Cocaine dependence, uncomplicated; F13.230 Sedative, hypnotic or anxiolytic dependence with withdrawal, uncomplicated; F17.210 Nicotine dependence, cigarettes, uncomplicated; F19.24 Other psychoactive substance dependence with psychoactive substance-induced mood disorder; I10 Essential (primary) hypertension; E11.9 Type 2 diabetes mellitus without complications; E78.00 Pure hypercholesterolemia, unspecified; K08.109 Complete loss of teeth, unspecified cause, unspecified class; E66.9 Obesity, unspecified; Z68.32 Body mass index [BMI] 32.0-32.9, adult; Z91.14 Patient's other noncompliance with medication regimen; Z79.84 Long term (current) use of oral hypoglycemic drugs; Z91.013 Allergy to seafood; Z88.8 Allergy status to other drugs, medicaments and biological substances; Z91.011 Allergy to milk products
CPT/HCPCS: 36415; 80053; 82962; 85027; 86593

== ENCOUNTER 2019-08-05 12:04 | Inpatient (IN) | payer MEDICARE, OTHER ==
[2019-08-05 12:49] VITALS: BMI 33.0
--- NOTE | 2019-08-05 13:15 | HP ---
CIWA Score - Admission Criteria OASAS Guidelines: Admission for Medically Managed Detox: Requires at least one of the followin. CIWA greater than 12 2. Seizures within the past 24 hours 3. Delirium tremens within the past 24 hours 4. Hallucinations within the past 24 hours 5. Acute intervention needed for co occurring medical disorder 6. Acute intervention needed for co occurring psychiatric disorder 7. Severe withdrawal that cannot be handled at a lower level of care (continued vomiting, continued diarrhea, abnormal vital signs) requiring intravenous medication and/or fluids 8. Admitting History and Physical - Smoking History Smoking history: Former smoker Have you smoked in the past 12 months: Yes Aproximately how many cigarettes per day: 0 (No smoking for 9 months) If you are a former smoker, when did you quit?: 06/2018 - Alcohol/Substance Use Hx Alcohol Use: Yes Admission [facility] Allergies/Adverse Reactions: Allergies Allergy/AdvReac Type Severity Reaction Status Date / Time Fish Containing Products Allergy Severe Rash Verified 08/05/19 12:37 lactose AdvReac Severe diarrhea Verified 08/05/19 12:37 melatonin AdvReac Intermediate depressed Verified 08/05/19 12:37 trazodone AdvReac Intermediate depression Verified 08/05/19 12:37 History of Present Illness: patient here requesting rehab from etoh use , completed detox 07/29/19 , latest use 1 week ago , denies symptoms at this time. reports prior etoh use 8 cans x 12 / 0z , 1 pint vodka 2 x/week since 2010 . Prior sobriety x 3 years while in outpt [facility] . Denies seizures . cannabis use - 1 x/ month utox + thx , + bzo PMHX ; HTN , DM2 since 2002 , anxiety PShx : denies PSych : denies SI / HI tobacco ; denies , quit 1 yr ago Exam Limitations: No Limitations - Ebola screening Have you traveled outside of the country in the last 21 days: No Have you had contact with anyone from an Ebola affected area: No Do you have a fever: No - Review of Systems Constitutional: No Symptoms Reported EENT: reports: No Symptoms Reported Respiratory: reports: No Symptoms reported Cardiac: reports: No Symptoms Reported GI: reports: No Symptoms Reported : reports: No Symptoms Reported Neuro: reports: No Symptoms reported Endocrine: reports: See HPI Psychiatric: reports: Orientated x3 Patient History - Patient Medical History Hx Anemia: No Hx Asthma: No Hx Chronic Obstructive Pulmonary Disease (COPD): No Hx Cancer: No Hx Cardiac Disorders: No Hx Congestive Heart Failure: No Hx Hypertension: Yes (on meds) Hx Hypercholesterolemia: Yes (non compliance) Hx Pacemaker: No HX Cerebrovascular Accident: No Hx Seizures: No Hx Dementia: No Hx Diabetes: Yes (on meds) Hx Gastrointestinal Disorders: No Hx Liver Disease: No Hx Genitourinary Disorders: No Hx Sexually Transmitted Disorders: No Hx Renal Disease (ESRD): No Hx Thyroid Disease: No Hx Human Immunodeficiency Virus (HIV): No (NEGATIVE HX last 12/24) Hx Hepatitis C: No Hx Depression: Yes (anxiety/panic disorder - OFF MEDS) Hx Suicide Attempt: No Hx Bipolar Disorder: No Hx Schizophrenia: No - Patient Surgical History Past Surgical History: No Hx Neurologic Surgery: No Hx Cataract Extraction: No Hx Cardiac Surgery: No Hx Lung Surgery: No Hx Breast Surgery: No Hx Breast Biopsy: No Hx Abdominal Surgery: No Hx Appendectomy: No Hx Cholecystectomy: No Hx Genitourinary Surgery: No Hx Section: No Hx Orthopedic Surgery: No Hx Hysterectomy: No Anesthesia Reaction: No - PPD History Date: 11/07/18 Results: 0 mm - Smoking Cessation Smoking history: Former smoker Have you smoked in the past 12 months: Yes Aproximately how many cigarettes per day: 0 (No smoking for 9 months) If you are a former smoker, when did you quit?: 06/2018 Cigars Per Day: 0 Hx Chewing Tobacco Use: No Initiated information on smoking cessation: Yes 'Breaking Loose' booklet given: 08/05/19 - Substances abused Alcohol Substance route: Oral Frequency: 3-6 times per week Amount used: 8(16oz of beer) , 1 pint OF VODKA Age of first use: 24 Date of last use: 07/27/19 Marijuana/Hashish Substance route: Smoking Frequency: 1-3 times last 30 days Amount used: $30 Age of first use: 19 Date of last use: 07/22/19 Alprazolam (Xanax) Substance route: Oral Frequency: 1-2 times per week Amount used: 2 sticks Age of first use: 51 Date of last use: 06/12/19 Other Other (specify): Xanax Substance route: Oral Frequency: 1-2 times per week Amount used: 2 sticks (2mg) Age of first use: 53 Date of last use: 07/22/19 Cocaine Substance route: Inhalation Frequency: 1-2 times per week Amount used: $40 Age of first use: 24 Date of last use: 06/09/19 Admission Physical Exam [facility] - Vital Signs Vital Signs: Vital Signs - 24 hr 08/05/19 12:37 Temperature 96.2 F L Pulse Rate 71 Respiratory 18 Rate Blood Pressure 142/95 - Physical General Appearance: Yes: No Apparent Distress HEENTM: Yes: EOMI, Hearing grossly Normal, Normocephalic, Normal Voice Respiratory: Yes: Chest Non-Tender, Lungs Clear, Normal Breath Sounds, No Respiratory Distress, No Accessory Muscle Use Neck: Yes: No masses,lesions,Nodules, Trachea in good position Cardiology: Yes: Regular Rhythm, Regular Rate, S1, S2 Abdominal: Yes: Non Tender, Soft Musculoskeletal: Yes: Gait Steady Extremities: Yes: Normal Inspection, Normal Range of Motion, Non-Tender 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: Yes: Fully Oriented, Alert, Motor Strength 5/5, Normal Mood/Affect Integumentary: Yes: Warm - Diagnostic (1) Alcohol dependence in early full remission Current Visit: Yes Status: Acute (2) Nicotine dependence Current Visit: Yes Status: Chronic Qualifiers: Nicotine product type: cigarettes Breathalyzer - Breathalyzer Breathalyzer: 0 Urine Drug Screen - Test Device Lot number: [id number] Expiration date: 04/04/21 - Control Is test valid?: Yes - Results Drug screen NEGATIVE: No Urine drug screen results: THC-Marijuana, BZO-Benzodiazepines Inpatient Rehab Admission - Rehab Decision to Admit Inpatient rehab admission?: Yes - Initial Determination Are CD services needed?: Yes Free of communicable disease: Yes Not in need of hospitalization: Yes - Rehab Admission Criteria Previous failed treatment: Yes Poor recovery environment: No Comorbidities: Yes Lacks judgement: Yes Patient is meeting Inpatient Rehab admission criteria:: Yes
[2019-08-05] MEDS ORDERED: guaiFENesin 200 MG/10 ML 10 ML UNIT-DOSE CUPS PO PRN (13:17)
[2019-08-05] MEDS ORDERED: P-EPHED 60MG/TRIPROLIDI 2.5MG TABLET PO PRN (13:17)
[2019-08-05] MEDS ORDERED: MENTHOL/PHENOL 1 EACH UD MM PRN (13:17)
[2019-08-05] MEDS ORDERED: MAG HYDROX/AL HYDROX/SIMETH 30 ML UNIT-DOSE CUP PO PRN (13:17)
[2019-08-05] MEDS ORDERED: ACETAMINOPHEN 325 MG TABLET (FP) PO PRN (13:17)
[2019-08-05] MEDS ORDERED: LOPERAMIDE HCL 2 MG CAPSULE PO PRN (13:17)
[2019-08-05] MEDS ORDERED: NICOTINE POLACRILEX 2 MG GUM BUC PRN (13:17)
[2019-08-05] MEDS ORDERED: IBUPROFEN 400 MG TABLET (FP) PO PRN (13:17)
[2019-08-05] MEDS ORDERED: MAGNESIUM CITRATE 300 ML BOTTLE PO PRN (13:17)
[2019-08-05] MEDS ORDERED: MAGNESIUM HYDROX 2400MG/30ML ORAL SUSPENSION 30 ML CUP PO PRN (13:17)
[2019-08-05] MEDS: NIFEdipine E.R 60 MG TABLET (UD) PO SCH (15:18)
[2019-08-05] MEDS: INSULIN SLIDING SCALE (NOVOLOG) 1 VIAL SQ SCH (16:52)
[2019-08-05] MEDS: THIAMINE HCL 100 MG TABLET (FP) PO SCH (21:19)
[2019-08-05] MEDS ORDERED: MELATONIN 5 MG TABLETS PO PRN (22:00)
[2019-08-06] MEDS: INSULIN SLIDING SCALE (NOVOLOG) 1 VIAL SQ SCH ×2 (06:21→16:25)
[2019-08-06] MEDS: PRENATAL VITAMINS W/ FOLIC ACID TABLET (FP) PO SCH (09:57)
[2019-08-06] MEDS: NIFEdipine E.R 60 MG TABLET (UD) PO SCH (10:10)
--- NOTE | 2019-08-06 10:56 | PN ---
S Progress Note Note: Pt seen for insomnia- pt says vistaril prn is good for this> ordered
--- NOTE | 2019-08-06 11:03 | PN ---
S Progress Note Note: Pt states his tooth broken. Not much pain now. prn tylenol and motrin for pain. Wants to see a dentist. Referral to see dentist at [facility].
[2019-08-06] MEDS ORDERED: ACETAMINOPHEN 325 MG TABLET (FP) PO PRN (11:05)
[2019-08-06] MEDS ORDERED: TOLNAFTATE 1% CREAM 15 GM TUBE TP PRN (11:07)
[2019-08-06] MEDS ORDERED: FLU VACCINE QUAD 60 MCG/0.5 ML (MDV 19-20) IM ONE (12:00)
[2019-08-06 14:58] LABS: URINE APPEARANCE CLEAR; URINE BILIRUBIN NEGATIVE (NEGATIVE); URINE COLOR YELLOW; URINE GLUCOSE (UA) 3+ (NEGATIVE); URINE KETONE TRACE (NEGATIVE); URINE LEUK ESTERASE NEGATIVE (NEGATIVE); URINE NITRITE NEGATIVE (NEGATIVE); URINE PROTEIN NEGATIVE (NEGATIVE)
[2019-08-06] MEDS: THIAMINE HCL 100 MG TABLET (FP) PO SCH (21:20)
[2019-08-06] MEDS: hydrOXYzine PAMOATE 25 MG CAPSULE (FP) PO PRN (21:22)
[2019-08-07] MEDS: INSULIN SLIDING SCALE (NOVOLOG) 1 VIAL SQ SCH ×2 (07:16→16:41)
[2019-08-07] MEDS: hydrOXYzine PAMOATE 25 MG CAPSULE (FP) PO PRN (09:56)
[2019-08-07] MEDS: PRENATAL VITAMINS W/ FOLIC ACID TABLET (FP) PO SCH (09:56)
[2019-08-07] MEDS: NIFEdipine E.R 60 MG TABLET (UD) PO SCH (09:56)
[2019-08-07] MEDS ORDERED: hydrOXYzine HCL 25 MG TABLET (FP) PO PRN (14:58)
[2019-08-07] MEDS ORDERED: INSULIN (NOVOLOG) ASPART 100 UNITS/ML 10ML VIAL ONE (16:39)
[2019-08-07] MEDS: THIAMINE HCL 100 MG TABLET (FP) PO SCH (21:23)
[2019-08-07] MEDS: hydrOXYzine HCL 25 MG TABLET (FP) PO PRN (22:12)
[2019-08-08] MEDS: INSULIN SLIDING SCALE (NOVOLOG) 1 VIAL SQ SCH ×2 (06:19→16:29)
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
[2019-08-08] MEDS: NIFEdipine E.R 60 MG TABLET (UD) PO SCH (10:10)
[2019-08-08] MEDS: PRENATAL VITAMINS W/ FOLIC ACID TABLET (FP) PO SCH (10:10)
[2019-08-08] MEDS: hydrOXYzine HCL 25 MG TABLET (FP) PO PRN ×3 (10:11→21:21)
[2019-08-08] MEDS ORDERED: PT OWN MED DRAWER 7, Y5N ONE (16:35)
[2019-08-08] MEDS: THIAMINE HCL 100 MG TABLET (FP) PO SCH (21:19)
[2019-08-09] MEDS: INSULIN SLIDING SCALE (NOVOLOG) 1 VIAL SQ SCH ×2 (06:27→16:31)
[2019-08-09] MEDS: PRENATAL VITAMINS W/ FOLIC ACID TABLET (FP) PO SCH (10:02)
[2019-08-09] MEDS: NIFEdipine E.R 60 MG TABLET (UD) PO SCH (10:02)
[2019-08-09] MEDS: hydrOXYzine HCL 25 MG TABLET (FP) PO PRN ×2 (10:03→21:06)
[2019-08-09] MEDS ORDERED: INSULIN (NOVOLOG) ASPART 100 UNITS/ML 10ML VIAL ONE (16:30)
[2019-08-09] MEDS: THIAMINE HCL 100 MG TABLET (FP) PO SCH (21:05)
[2019-08-09] MEDS ORDERED: PT OWN MED DRAWER 7, Y5N ONE (21:06)
[2019-08-10] MEDS: INSULIN SLIDING SCALE (NOVOLOG) 1 VIAL SQ SCH ×2 (06:30→16:22)
[2019-08-10] MEDS: NIFEdipine E.R 60 MG TABLET (UD) PO SCH (09:55)
[2019-08-10] MEDS: PRENATAL VITAMINS W/ FOLIC ACID TABLET (FP) PO SCH (09:55)
[2019-08-10] MEDS ORDERED: PT OWN MED DRAWER 7, Y5N ONE ×2 (09:57→21:27)
[2019-08-10] MEDS: hydrOXYzine HCL 25 MG TABLET (FP) PO PRN ×2 (09:57→21:27)
[2019-08-10] MEDS: THIAMINE HCL 100 MG TABLET (FP) PO SCH (21:26)
[2019-08-11] MEDS ORDERED: PT OWN MED DRAWER 7, Y5N ONE (06:10)
[2019-08-11] MEDS: hydrOXYzine HCL 25 MG TABLET (FP) PO PRN ×2 (06:11→18:03)
[2019-08-11] MEDS: INSULIN SLIDING SCALE (NOVOLOG) 1 VIAL SQ SCH ×2 (06:12→16:55)
[2019-08-11] MEDS: PRENATAL VITAMINS W/ FOLIC ACID TABLET (FP) PO SCH (10:40)
[2019-08-11] MEDS: NIFEdipine E.R 60 MG TABLET (UD) PO SCH (10:40)
[2019-08-11] MEDS ORDERED: INSULIN (NOVOLOG) ASPART 100 UNITS/ML 10ML VIAL ONE (17:00)
[2019-08-11] MEDS ORDERED: hydrOXYzine PAMOATE 25 MG CAPSULE (FP) PO PRN (17:02)
[2019-08-11] MEDS: THIAMINE HCL 100 MG TABLET (FP) PO SCH (21:57)
[2019-08-12] MEDS: INSULIN SLIDING SCALE (NOVOLOG) 1 VIAL SQ SCH ×2 (06:15→17:13)
[2019-08-12] MEDS ORDERED: INSULIN (NOVOLOG) ASPART 100 UNITS/ML 10ML VIAL ONE (06:15)
[2019-08-12 06:46] VITALS: TEMP 98.4
[2019-08-12] MEDS: NIFEdipine E.R 60 MG TABLET (UD) PO SCH (09:42)
[2019-08-12] MEDS: PRENATAL VITAMINS W/ FOLIC ACID TABLET (FP) PO SCH (09:42)
[2019-08-12] MEDS ORDERED: PT OWN MED DRAWER 7, Y5N ONE (11:05)
[2019-08-12] MEDS: hydrOXYzine HCL 25 MG TABLET (FP) PO PRN (17:14)
[2019-08-12] MEDS: THIAMINE HCL 100 MG TABLET (FP) PO SCH (21:37)
[2019-08-13] MEDS ORDERED: INSULIN (NOVOLOG) ASPART 100 UNITS/ML 10ML VIAL ONE (05:52)
[2019-08-13 06:46] VITALS: BP 133/82; PULSE 73
--- NOTE | 2019-08-13 08:45 | DS ---
[facility] Rehab Discharge Summary - [facility] Rehab Discharge Summary Admission Date: 08/05/19 Discharge Date: 08/13/19 - History Present History: Alcohol dependence, Cannabis dependence, Cocaine dependence Pertinent Past History: History of Present Illness: previously completed detox 07/29/19 reports prior etoh use 8 cans x 12 / 0z , 1 pint vodka 2 x/week since 2010 . Prior sobriety x 3 years while in outpt [facility] . Denies seizures . cannabis use - 1 x/ month utox + thx , + bzo PMHX ; HTN , DM2 since 2002 , anxiety PShx : denies PSych : denies SI / HI tobacco ; denies , quit 1 yr ago - Discharge Physical Exam Vital Signs: Vital Signs Temperature 98.4 F 08/13/19 06:46 Pulse Rate 73 08/13/19 06:46 Respiratory Rate 18 08/13/19 06:46 Blood Pressure 133/82 08/13/19 06:46 O2 Sat by Pulse Oximetry (%) Pertinent Admission Physical Exam Findings: Physical General Appearance: No Apparent Distress HEENTM: EOMI, no gross Hearing deficits, Normocephalic, PERRLA Respiratory: Lungs Clear, Neck: Supple,Trachea in good position Cardiology: S1, S2 Abdominal: +BS, Non Tender, Soft Musculoskeletal: Gait Steady full Range of Motion, full weight bearing 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: CN 2-12 intact; Motor Strength 5/5, Integumentary: skin color consistent throughout trunk and extremities; good skin turgor. - Treatment Discharge Condition: Outpatient referral accepted (medically stable for discharge; no acute or urgent medical problem. [facility] will go to [facility] Hospital Course: Patient attended groups, met with his counselor, was adherent to the treatment plan and medication regimen. - Medication Discharge Medications: Ambulatory Orders Docusate Sodium [Stool Softener] 100 mg PO BID #60 capsule 04/14/19 [place]-3 Acid Ethyl Esters [Lovaza -] 1,000 mg PO BID #60 cap 04/14/19 Nifedipine [Procardia Xl] 60 mg PO DAILY #30 tab.er.24 06/18/19 metFORMIN HCL [Metformin HCl] 850 mg PO DAILY 07/04/19 - Medication-Assisted Treatment (MAT) Medication-Assisted Treatment (MAT): No - Discharge Instructions Diet, activity, other medical instructions: Diet: as tolerated Activity: as tolerated Other medical instructions: Please keep aftercare referral appointment. - Diagnosis (1) Alcohol dependence Current Visit: Yes Status: Chronic Qualifiers: Substance use status: uncomplicated Qualified Code(s): F10.20 - Alcohol dependence, uncomplicated (2) Cocaine dependence Current Visit: No Status: Chronic Qualifiers: Substance use status: uncomplicated Qualified Code(s): F14.20 - Cocaine dependence, uncomplicated - Follow-up Referral Minutes to complete discharge: 20 - AMA Did Patient Leave Against Medical Advice: No
== END 2019-08-13 08:53 | disposition home or self-care (01) | DRG 895 ==
LOC: YASAS 12:04 → Y3W 13:59
PROVIDERS: ADMIT Neuromusculoskeletal Medicine & OMM; ATTEND Neuromusculoskeletal Medicine & OMM
PROC: HZ42ZZZ Group Counseling for Substance Abuse Treatment, Cognitive-Behavioral (ICD-10-PCS; principal; 2019-08-05)
DX: F10.20 Alcohol dependence, uncomplicated (principal); F14.20 Cocaine dependence, uncomplicated; F13.20 Sedative, hypnotic or anxiolytic dependence, uncomplicated; F19.280 Other psychoactive substance dependence with psychoactive substance-induced anxiety disorder; F19.282 Other psychoactive substance dependence with psychoactive substance-induced sleep disorder; F12.10 Cannabis abuse, uncomplicated; F41.9 Anxiety disorder, unspecified; I10 Essential (primary) hypertension; E11.9 Type 2 diabetes mellitus without complications; E78.5 Hyperlipidemia, unspecified; E66.9 Obesity, unspecified; Z68.33 Body mass index [BMI] 33.0-33.9, adult; Z91.14 Patient's other noncompliance with medication regimen; Z91.013 Allergy to seafood; Z91.011 Allergy to milk products; Z79.4 Long term (current) use of insulin; Z87.438 Personal history of other diseases of male genital organs; Z88.8 Allergy status to other drugs, medicaments and biological substances; Z87.891 Personal history of nicotine dependence
CPT/HCPCS: 81003; 82962; G0008; Q2036

== ENCOUNTER 2019-09-02 15:13 | Inpatient (IN) | payer OTHER ==
[2019-09-02 17:16] VITALS: BMI 31.9
--- NOTE | 2019-09-02 18:23 | HP ---
CIWA Score Nausea/Vomitin Muscle Tremors: 2 Anxiety: 2 Agitation: 2 Paroxysmal Sweats: 2 Orientation: 0-Oriented Tacttile Disturbances: 0-None Auditory Disturbances: 0-None Visual Disturbances: 0-None Headache: 2-Mild CIWA-Ar Total Score: 12 - Admission Criteria OASAS Guidelines: Admission for Medically Managed Detox: Requires at least one of the followin. CIWA greater than 12 2. Seizures within the past 24 hours 3. Delirium tremens within the past 24 hours 4. Hallucinations within the past 24 hours 5. Acute intervention needed for co occurring medical disorder 6. Acute intervention needed for co occurring psychiatric disorder 7. Severe withdrawal that cannot be handled at a lower level of care (continued vomiting, continued diarrhea, abnormal vital signs) requiring intravenous medication and/or fluids 8. Admitting History and Physical - Smoking History Smoking history: Former smoker Have you smoked in the past 12 months: Yes Aproximately how many cigarettes per day: 0 (No smoking for 9 months) If you are a former smoker, when did you quit?: 06/2018 - Alcohol/Substance Use Hx Alcohol Use: Yes Admission ROS [facility] - HPI Allergies/Adverse Reactions: Allergies Allergy/AdvReac Type Severity Reaction Status Date / Time Fish Containing Products Allergy Severe Rash Verified 09/02/19 17:09 lactose AdvReac Severe diarrhea Verified 09/02/19 17:09 melatonin AdvReac Intermediate depressed Verified 09/02/19 17:09 trazodone AdvReac Intermediate depression Verified 09/02/19 17:09 History of Present Illness: patient here requesting DETOX from etoh use , reports relapse after d/c from this facility 08/13/19 , relapsed the same day he left , has been drinking alcohol ever since , reports 2 x 6-pk/day , latest use this morning . Prior sobriety x 3 years while in outpt [facility] . Denies seizures . went to [facility] yesterday , tx for anxiety . cannabis use - 1 x/ month utox + thx , + bzo PMHX ; HTN , DM2 since 2002 , anxiety PShx : denies PSych : denies SI / HI tobacco ; denies , quit 1 yr ago - Ebola screening Have you traveled outside of the country in the last 21 days: No Have you had contact with anyone from an Ebola affected area: No - Review of Systems Constitutional: See HPI EENT: reports: Blurred Vision (intermittent) Respiratory: reports: SOB with Exertion Cardiac: reports: No Symptoms Reported GI: reports: See HPI : reports: No Symptoms Reported Musculoskeletal: reports: No Symptoms Reported Integumentary: reports: Other (thumb fungus) Neuro: reports: See HPI Endocrine: reports: See HPI Psychiatric: reports: Orientated x3, Anxious Patient History - Patient Medical History Hx Anemia: No Hx Asthma: No Hx Chronic Obstructive Pulmonary Disease (COPD): No Hx Cancer: No Hx Cardiac Disorders: No Hx Congestive Heart Failure: No Hx Hypertension: Yes (on meds) Hx Hypercholesterolemia: Yes (non compliance) Hx Pacemaker: No HX Cerebrovascular Accident: No Hx Seizures: No Hx Dementia: No Hx Diabetes: Yes (on meds) Hx Gastrointestinal Disorders: No Hx Liver Disease: No Hx Genitourinary Disorders: No Hx Sexually Transmitted Disorders: No Hx Renal Disease (ESRD): No Hx Thyroid Disease: No Hx Human Immunodeficiency Virus (HIV): No (NEGATIVE HX last 12/24) Hx Hepatitis C: No Hx Depression: Yes (anxiety/panic disorder - OFF MEDS) Hx Suicide Attempt: No Hx Bipolar Disorder: No Hx Schizophrenia: No - Patient Surgical History Past Surgical History: No Hx Neurologic Surgery: No Hx Cataract Extraction: No Hx Cardiac Surgery: No Hx Lung Surgery: No Hx Breast Surgery: No Hx Breast Biopsy: No Hx Abdominal Surgery: No Hx Appendectomy: No Hx Cholecystectomy: No Hx Genitourinary Surgery: No Hx Section: No Hx Orthopedic Surgery: No Hx Hysterectomy: No Anesthesia Reaction: No - PPD History Date: 11/07/18 Results: 0 mm - Smoking Cessation Smoking history: Former smoker Have you smoked in the past 12 months: Yes Aproximately how many cigarettes per day: 0 (No smoking for 9 months) If you are a former smoker, when did you quit?: 06/2018 Cigars Per Day: 0 Hx Chewing Tobacco Use: No Initiated information on smoking cessation: No - Substances abused Alcohol Substance route: Oral Frequency: 3-6 times per week Amount used: 8(16oz of beer) , 1 pint OF VODKA Age of first use: 24 Date of last use: 09/02/19 Marijuana/Hashish Substance route: Smoking Frequency: 1-3 times last 30 days Amount used: $30 Age of first use: 19 Date of last use: 08/16/19 Alprazolam (Xanax) Substance route: Oral Frequency: 1-2 times per week Amount used: 2 sticks Age of first use: 51 Date of last use: 06/12/19 Other Other (specify): Xanax Substance route: Oral Frequency: 1-2 times per week Amount used: 2 sticks (2mg) Age of first use: 53 Date of last use: 08/30/19 Cocaine Substance route: Inhalation Frequency: 1-2 times per week Amount used: $40 Age of first use: 24 Date of last use: 06/09/19 Admission Physical Exam S - Vital Signs Vital Signs: Vital Signs - 24 hr 09/02/19 09/02/19 17:12 18:02 Temperature 97.9 F 97.9 F Pulse Rate 87 87 Respiratory 16 16 Rate Blood Pressure 155/77 155/77 - Physical General Appearance: Yes: Mild Distress, Anxious HEENTM: Yes: EOMI, Hearing grossly Normal, Normocephalic, Normal Voice Respiratory: Yes: Chest Non-Tender, Lungs Clear, Normal Breath Sounds, No Respiratory Distress, No Accessory Muscle Use Neck: Yes: No masses,lesions,Nodules, Trachea in good position Cardiology: Yes: Regular Rhythm, Regular Rate, S1, S2 Musculoskeletal: Yes: full range of Motion, Gait Steady Extremities: Yes: Normal Range of Motion, Non-Tender 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: Yes: Alert, Motor Strength 5/5, Normal Mood/Affect, Normal Response Integumentary: Yes: Warm - Diagnostic (1) Alcohol dependence with uncomplicated withdrawal Current Visit: Yes Status: Chronic Breathalyzer - Breathalyzer Breathalyzer: 0 Urine Drug Screen - Test Device Lot number: [id number] Expiration date: 05/04/21 - Control Is test valid?: Yes - Results Drug screen NEGATIVE: No Urine drug screen results: THC-Marijuana, BZO-Benzodiazepines Inpatient Rehab Admission - Rehab Decision to Admit Inpatient rehab admission?: No
[2019-09-02] MEDS ORDERED: MELATONIN 5 MG TABLETS PO PRN (18:39)
[2019-09-02] MEDS ORDERED: hydrOXYzine PAMOATE 25 MG CAPSULE (FP) PO PRN (18:39)
[2019-09-02] MEDS ORDERED: MENTHOL/PHENOL 1 EACH UD MM PRN (18:39)
[2019-09-02] MEDS ORDERED: IBUPROFEN 400 MG TABLET (FP) PO PRN (18:39)
[2019-09-02] MEDS ORDERED: MAGNESIUM HYDROX 2400MG/30ML ORAL SUSPENSION 30 ML CUP PO PRN (18:39)
[2019-09-02] MEDS ORDERED: MAG HYDROX/AL HYDROX/SIMETH 30 ML UNIT-DOSE CUP PO PRN (18:39)
[2019-09-02] MEDS ORDERED: ACETAMINOPHEN 325 MG TABLET (FP) PO PRN ×2 (18:39)
[2019-09-02] MEDS ORDERED: BISMUTH SUBSALICYLATE 524 MG/30 ML UD PO PRN (18:39)
[2019-09-02] MEDS ORDERED: MAGNESIUM CITRATE 300 ML BOTTLE PO PRN (18:39)
[2019-09-02] MEDS ORDERED: chlordiazePOXIDE HCL 10 MG CAPSULE PO PRN (18:40)
[2019-09-02] MEDS: NIFEdipine E.R. 30 MG TABLET (FP) PO SCH (19:43)
[2019-09-02] MEDS: metFORMIN HCL 500 MG TABLET (FP) PO SCH (19:43)
[2019-09-02] MEDS ORDERED: INSULIN (NOVOLOG) ASPART 100 UNITS/ML 10ML VIAL SQ ONE (20:27)
[2019-09-02] MEDS: chlordiazePOXIDE HCL 25 MG CAPSULE PO SCH (21:04)
[2019-09-02] MEDS: THIAMINE HCL 100 MG TABLET (FP) PO SCH (21:04)
[2019-09-02] MEDS: TOLNAFTATE 1% CREAM 15 GM TUBE TP SCH (21:05)
[2019-09-03] MEDS: chlordiazePOXIDE HCL 25 MG CAPSULE PO SCH ×3 (05:40→21:47)
[2019-09-03] MEDS ORDERED: metFORMIN HCL 500 MG TABLET (FP) PO SCH (07:00)
[2019-09-03] MEDS ORDERED: INSULIN SLIDING SCALE (NOVOLOG) 1 VIAL SQ SCH (07:00)
[2019-09-03] MEDS: metFORMIN HCL 500 MG TABLET (FP) PO SCH ×2 (07:01→17:42)
[2019-09-03] MEDS: INSULIN SLIDING SCALE (NOVOLOG) 1 VIAL SQ SCH ×2 (08:09→17:43)
[2019-09-03] MEDS: NIFEdipine E.R. 30 MG TABLET (FP) PO SCH (10:04)
[2019-09-03] MEDS: PRENATAL VITAMINS W/ FOLIC ACID TABLET (FP) PO SCH (10:04)
[2019-09-03] MEDS: TOLNAFTATE 1% CREAM 15 GM TUBE TP SCH ×2 (10:07→21:48)
--- NOTE | 2019-09-03 11:58 | PN ---
[facility] CIWA - CIWA Score Nausea/Vomitin-Mild Nausea/No Vomiting Muscle Tremors: 3 Anxiety: 4-Mod. Anxious/Guarded Agitation: 2 Paroxysmal Sweats: 2 Orientation: 0-Oriented Tacttile Disturbances: 1-Very Mild Itch/Numbness Auditory Disturbances: 1-Very Mild Visual Disturbances: 0-None Headache: 0-None Present CIWA-Ar Total Score: 14 [facility] Progress Note (SOAP) Subjective: 53 years old male admitted on 09/02/19 for alcohol and benzo withdrawal sx management treated with librium detox regimen patient tolerated well ambulating on hallway discuss discharge plan with staff patient acknowledge long history of diabetes agrees to act on weight loss and dietary regimen Objective: 09/03/19 11:57 Vital Signs Temperature 96.9 F L 09/03/19 09:14 Pulse Rate 78 09/03/19 09:14 Respiratory Rate 18 09/03/19 09:14 Blood Pressure 127/78 09/03/19 09:14 O2 Sat by Pulse Oximetry (%) Laboratory Last Values POC Glucometer 267 UNITS (80-120) 09/03/19 05:38 09/03/19 11:59 lab see 07/28/2019 report Assessment: 09/03/19 11:59 alcohol withdrawal sx Plan: continue librium detox regimen
[2019-09-03] MEDS: THIAMINE HCL 100 MG TABLET (FP) PO SCH (21:46)
[2019-09-04] MEDS ORDERED: chlordiazePOXIDE 5 MG CAPSULE PO SCH (05:00)
[2019-09-04 06:17] VITALS: BP 120/78; PULSE 76; TEMP 98
[2019-09-04] MEDS: INSULIN SLIDING SCALE (NOVOLOG) 1 VIAL SQ SCH (07:19)
[2019-09-04] MEDS: metFORMIN HCL 500 MG TABLET (FP) PO SCH (07:19)
[2019-09-04] MEDS: NIFEdipine E.R. 30 MG TABLET (FP) PO SCH (09:46)
[2019-09-04] MEDS: PRENATAL VITAMINS W/ FOLIC ACID TABLET (FP) PO SCH (09:46)
[2019-09-04] MEDS: TOLNAFTATE 1% CREAM 15 GM TUBE TP SCH (09:46)
--- NOTE | 2019-09-04 11:59 | DS ---
[facility] Detox Discharge Summary Admission Date: 09/02/19 Discharge Date: 09/04/19 - History Present History: Alcohol Dependence, Sedative Dependence Additional Comments: 53 years old male admitted on 09/02/19 for alcohol and benzo withdrawal sx management treated with librium detox regimen patient insists to leave the detox without apparent reason patient is alert oriented x 3 refuses exist physical examine refuses ciwa - Physical Exam Results Vital Signs: Vital Signs Temperature 98 F 09/04/19 06:16 Pulse Rate 76 09/04/19 06:16 Respiratory Rate 18 09/04/19 06:16 Blood Pressure 120/78 09/04/19 06:16 O2 Sat by Pulse Oximetry (%) Pertinent Admission Physical Exam Findings: alcohol and benzo withdrawal sx Laboratory Last Values POC Glucometer 334 UNITS (80-120) 09/03/19 16:42 lab see 07/28/10 result - Treatment Hospital Course: Detox Protocol Followed, Responded well Patient has Accepted [facility] - Medication Discharge Medications: Ambulatory Orders Docusate Sodium [Stool Softener] 100 mg PO BID #60 capsule 04/14/19 [place]-3 Acid Ethyl Esters [Lovaza -] 1,000 mg PO BID #60 cap 04/14/19 Nifedipine [Procardia Xl] 60 mg PO DAILY #30 tab.er.24 06/18/19 metFORMIN HCL [Metformin HCl] 500 mg PO DAILY 07/04/19 - Diagnosis (1) Alcohol dependence with uncomplicated withdrawal Current Visit: Yes Status: Acute (2) Sedative, hypnotic or anxiolytic abuse, uncomplicated Current Visit: Yes Status: Acute (3) DM Diabetes mellitus type 2 Current Visit: Yes Status: Chronic (4) Essential hypertension Current Visit: Yes Status: Chronic (5) Hypercholesterolemia Current Visit: Yes Status: Chronic (6) Nicotine dependence Current Visit: Yes Status: Acute Qualifiers: Nicotine product type: cigarettes Substance use status: in withdrawal Qualified Code(s): F17.213 - Nicotine dependence, cigarettes, with withdrawal (7) Obesity (BMI 30.0-34.9) Current Visit: Yes Status: Chronic (8) Substance induced mood disorder Current Visit: Yes Status: Suspected - AMA Did Patient Leave Against Medical Advice: Yes
[2019-09-05] MEDS ORDERED: chlordiazePOXIDE HCL 10 MG CAPSULE PO PRN
[2019-09-05] MEDS ORDERED: chlordiazePOXIDE HCL 10 MG CAPSULE PO SCH (05:00)
[2019-09-06] MEDS ORDERED: chlordiazePOXIDE HCL 10 MG CAPSULE PO ONE (05:00)
== END 2019-09-04 08:47 | disposition left against medical advice (07) | DRG 894 ==
LOC: YASAS 15:13 → Y3N 18:53
PROVIDERS: ADMIT Allergy & Immunology; ATTEND Allergy & Immunology
PROC: HZ2ZZZZ Detoxification Services for Substance Abuse Treatment (ICD-10-PCS; principal; 2019-09-02)
DX: F10.230 Alcohol dependence with withdrawal, uncomplicated (principal); F14.20 Cocaine dependence, uncomplicated; F13.230 Sedative, hypnotic or anxiolytic dependence with withdrawal, uncomplicated; F12.20 Cannabis dependence, uncomplicated; F17.210 Nicotine dependence, cigarettes, uncomplicated; F19.24 Other psychoactive substance dependence with psychoactive substance-induced mood disorder; I10 Essential (primary) hypertension; E11.9 Type 2 diabetes mellitus without complications; Z79.84 Long term (current) use of oral hypoglycemic drugs; E78.00 Pure hypercholesterolemia, unspecified; E66.9 Obesity, unspecified; Z68.32 Body mass index [BMI] 32.0-32.9, adult; Z91.013 Allergy to seafood; Z88.8 Allergy status to other drugs, medicaments and biological substances
CPT/HCPCS: 82962

== ENCOUNTER 2019-09-24 15:29 | Inpatient (IN) | payer MEDICARE, OTHER ==
[2019-09-24 19:20] VITALS: BMI 31.3
--- NOTE | 2019-09-24 20:49 | HP ---
CIWA Score Nausea/Vomitin-Mild Nausea/No Vomiting Muscle Tremors: 1-None Visible, but [place] Anxiety: 4-Mod. Anxious/Guarded Agitation: 4-Moderately Restless Paroxysmal Sweats: 3 Orientation: 1-Uncertain about Date Tacttile Disturbances: 0-None Auditory Disturbances: 0-None Visual Disturbances: 0-None Headache: 0-None Present CIWA-Ar Total Score: 14 - Admission Criteria OASAS Guidelines: Admission for Medically Managed Detox: Requires at least one of the followin. CIWA greater than 12 2. Seizures within the past 24 hours 3. Delirium tremens within the past 24 hours 4. Hallucinations within the past 24 hours 5. Acute intervention needed for co occurring medical disorder 6. Acute intervention needed for co occurring psychiatric disorder 7. Severe withdrawal that cannot be handled at a lower level of care (continued vomiting, continued diarrhea, abnormal vital signs) requiring intravenous medication and/or fluids 8. Patient presents the following: CIWA greater than 12 Admission Criteria Met: Admission criteria met Admitting History and Physical - Smoking History Smoking history: Former smoker Have you smoked in the past 12 months: Yes Aproximately how many cigarettes per day: 0 (No smoking for 9 months) If you are a former smoker, when did you quit?: 06/2018 - Alcohol/Substance Use Hx Alcohol Use: Yes Admission ROS [facility] Chief Complaint: c/o withdrawal sx's. seeking alcohol detox Allergies/Adverse Reactions: Allergies Allergy/AdvReac Type Severity Reaction Status Date / Time Fish Containing Products Allergy Severe Rash Verified 09/24/19 19:05 lactose AdvReac Severe diarrhea Verified 09/24/19 19:05 melatonin AdvReac Intermediate depressed Verified 09/24/19 19:05 trazodone AdvReac Intermediate depression Verified 09/24/19 19:05 History of Present Illness: HERE FOR ALCOHOL DETOX. CLIENT IS SELF REFERRED. KNOWN TO PROGRAM WITH NUMEROUS ADMISSION. CLIENT LAST HERE 3 WEEKS AGO. SIGNED OUT AMA FOR PERSONAL REASON. HE NOW PRESENTS WITH C/O WITHDRAWAL SX'S. SEEKING DETOX. STATES HAS TAKEN CARE OF HIS PERSONAL ISSUES AND IS READY TO COMPLETE TXMENT. SEEKING REHAB AFTER DETOX.HE REPORTS DRINKING 4 X AWEEK. 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 ADDICTION STARTED AGE 19. UNABLE TO GO MORE W/O FEELING SICK. DENIES ANY SIGNIFICANT CLEAN TIME EXCEPT WHEN IN TXMENT THIS PAST YEAR. LAST CLEAN TIME 9 YEARS AGO FOR 3 YEARS. + BLACK OUTS X1. DENIES SIEIZURES, AVH. LIVES ALONE, UNEMPLOYED, DENIES LEGALS Exam Limitations: No Limitations - Ebola screening Have you traveled outside of the country in the last 21 days: No Have you had contact with anyone from an Ebola affected area: No Have you been sick,other than usual withdrawal symptoms: No Do you have a fever: No - Review of Systems Constitutional: Chills, Loss of Appetite, Night Sweats EENT: reports: Dental Problems (MSSING TEETH) Respiratory: reports: Shortness of Breath Cardiac: reports: No Symptoms Reported GI: reports: Nausea, Poor Appetite, Poor Fluid Intake, Abdominal cramping : reports: Frequency Musculoskeletal: reports: No Symptoms Reported Integumentary: reports: No Symptoms Reported Neuro: reports: Dizziness, Other (BLACK OUTS) Endocrine: reports: Other (BORDERLINE DM) Hematology: reports: No Symptoms Reported Psychiatric: reports: Orientated x3, Anxious Other Systems: Reviewed and Negative Patient History - Patient Medical History Hx Anemia: No Hx Asthma: No Hx Chronic Obstructive Pulmonary Disease (COPD): No Hx Cancer: No Hx Cardiac Disorders: No Hx Congestive Heart Failure: No Hx Hypertension: Yes (on meds) Hx Hypercholesterolemia: Yes (non compliance) Hx Pacemaker: No HX Cerebrovascular Accident: No Hx Seizures: No Hx Dementia: No Hx Diabetes: Yes (on meds) Hx Gastrointestinal Disorders: No Hx Liver Disease: No Hx Genitourinary Disorders: No Hx Sexually Transmitted Disorders: No Hx Renal Disease (ESRD): No Hx Thyroid Disease: No Hx Human Immunodeficiency Virus (HIV): No (NEGATIVE HX last 12/24) Hx Hepatitis C: No Hx Depression: Yes (anxiety/panic disorder - OFF MEDS) Hx Suicide Attempt: No Hx Bipolar Disorder: No Hx Schizophrenia: No Other Medical History: DENIES - Patient Surgical History Past Surgical History: No Hx Neurologic Surgery: No Hx Cataract Extraction: No Hx Cardiac Surgery: No Hx Lung Surgery: No Hx Breast Surgery: No Hx Breast Biopsy: No Hx Abdominal Surgery: No Hx Appendectomy: No Hx Cholecystectomy: No Hx Genitourinary Surgery: No Hx Section: No Hx Orthopedic Surgery: No Hx Hysterectomy: No Anesthesia Reaction: No - PPD History Previous Implant?: Yes Documented Results: Negative w/proof Implanted On Prior R Admission?: Yes Date: 11/07/18 Results: 0 mm PPD to be Administered?: No - Smoking Cessation Smoking history: Former smoker Have you smoked in the past 12 months: Yes Aproximately how many cigarettes per day: 0 (No smoking for 9 months) If you are a former smoker, when did you quit?: 06/2018 Cigars Per Day: 0 Hx Chewing Tobacco Use: No Initiated information on smoking cessation: No - Substance & Tx. History Hx Alcohol Use: Yes Hx Substance Use: Yes Substance Use Type: Alcohol, Marijuana Hx Substance Use Treatment: Yes ([facility]) - Substances abused Alcohol Substance route: Oral Frequency: 3-6 times per week Amount used: 8(16oz of beer) , 1 pint OF VODKA Age of first use: 24 Date of last use: 09/24/19 Marijuana/Hashish Substance route: Smoking Frequency: 1-3 times last 30 days Amount used: $30 Age of first use: 19 Date of last use: 09/07/19 Alprazolam (Xanax) Substance route: Oral Frequency: 1-2 times per week Amount used: 2 sticks Age of first use: 51 Date of last use: 06/12/19 Other Other (specify): Xanax Substance route: Oral Frequency: 1-2 times per week Amount used: 2 sticks (2mg) Age of first use: 53 Date of last use: 09/13/19 Cocaine Substance route: Inhalation Frequency: 1-2 times per week Amount used: $40 Age of first use: 24 Date of last use: 06/09/19 Admission Physical Exam S - Vital Signs Vital Signs: Vital Signs - 24 hr 09/24/19 19:03 Temperature 0 F L Pulse Rate 80 Respiratory 16 Rate Blood Pressure 149/91 - Physical General Appearance: Yes: Mild Distress, Anxious HEENTM: Yes: EOMI, Normocephalic, Normal Voice, JACKLYN, Pharynx Normal, Other ( EDENTULOUS) Respiratory: Yes: Chest Non-Tender, Lungs Clear, Normal Breath Sounds, No Respiratory Distress, No Accessory Muscle Use Neck: Yes: No masses,lesions,Nodules, Supple, Trachea in good position Breast: Yes: Breast Exam Deferred Cardiology: Yes: Regular Rhythm, Regular Rate, S1, S2 Abdominal: Yes: Non Tender, Soft, Increased Bowel Sounds, Protuberent Genitourinary: Yes: Within Normal Limits Back: Yes: Normal Inspection Musculoskeletal: Yes: full range of Motion, Gait Steady Extremities: Yes: Normal Capillary Refill, Normal Range of Motion, Non-Tender 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: Yes: Fully Oriented, Alert, Motor Strength 5/5, Depressed Affect Integumentary: Yes: Dry, Warm Lymphatic: Yes: Within Normal Limits - Diagnostic (1) Alcohol dependence with uncomplicated withdrawal Current Visit: Yes Status: Acute (2) Cannabis abuse Current Visit: Yes Status: Acute (3) Sedative, hypnotic or anxiolytic abuse, uncomplicated Current Visit: Yes Status: Acute (4) Substance-induced anxiety disorder Current Visit: Yes Status: Acute (5) DM Diabetes mellitus type 2 Current Visit: Yes Status: Chronic Comment: bgm = (6) Essential hypertension Current Visit: Yes Status: Chronic (7) Hypercholesterolemia Current Visit: Yes Status: Chronic (8) Substance induced mood disorder Current Visit: Yes Status: Suspected (9) Frequent hospital admissions Current Visit: Yes Status: Chronic (10) Obesity (BMI 30.0-34.9) Current Visit: Yes Status: Chronic Cleared for Admission S - Detox or Rehab [facility] Level of Care: Medically Managed Detox Regimen/Protocol: Valium Claeared for Rehab Admission: No Breathalyzer - Breathalyzer Breathalyzer: 0 Urine Drug Screen - Test Device Lot number: [id number] Expiration date: 05/04/21 - Control Is test valid?: Yes - Results Drug screen NEGATIVE: No Urine drug screen results: THC-Marijuana, BZO-Benzodiazepines Inpatient Rehab Admission - Rehab Decision to Admit Inpatient rehab admission?: No
[2019-09-24] MEDS ORDERED: diazePAM 5 MG TABLET PO PRN (20:54)
[2019-09-24] MEDS ORDERED: MAGNESIUM HYDROX 2400MG/30ML ORAL SUSPENSION 30 ML CUP PO PRN (20:54)
[2019-09-24] MEDS ORDERED: guaiFENesin 200 MG/10 ML 10 ML UNIT-DOSE CUPS PO PRN (20:54)
[2019-09-24] MEDS ORDERED: ACETAMINOPHEN 325 MG TABLET (FP) PO PRN ×2 (20:54)
[2019-09-24] MEDS ORDERED: P-EPHED 60MG/TRIPROLIDI 2.5MG TABLET PO PRN (20:54)
[2019-09-24] MEDS ORDERED: DICYCLOMINE HCL 10 MG CAPSULE PO PRN (20:54)
[2019-09-24] MEDS ORDERED: MENTHOL/PHENOL 1 EACH UD MM PRN (20:54)
[2019-09-24] MEDS ORDERED: hydrOXYzine PAMOATE 25 MG CAPSULE (FP) PO PRN (20:54)
[2019-09-24] MEDS ORDERED: IBUPROFEN 400 MG TABLET (FP) PO PRN (20:54)
[2019-09-24] MEDS ORDERED: ONDANSETRON *ODT* 4 MG TABLET SL PRN (20:54)
[2019-09-24] MEDS ORDERED: MAG HYDROX/AL HYDROX/SIMETH 30 ML UNIT-DOSE CUP PO PRN (20:54)
[2019-09-24] MEDS ORDERED: BISMUTH SUBSALICYLATE 524 MG/30 ML UD PO PRN (20:54)
[2019-09-24] MEDS ORDERED: MAGNESIUM CITRATE 300 ML BOTTLE PO PRN (20:54)
[2019-09-24] MEDS: diazePAM 5 MG TABLET PO SCH (23:27)
[2019-09-24] MEDS: METHOCARBAMOL 500 MG TABLET PO PRN (23:27)
[2019-09-24] MEDS: THIAMINE HCL 100 MG TABLET (FP) PO SCH (23:28)
[2019-09-25] MEDS: diazePAM 5 MG TABLET PO SCH ×3 (05:40→21:51)
[2019-09-25] MEDS: metFORMIN HCL 500 MG TABLET (FP) PO SCH ×2 (06:32→17:12)
[2019-09-25 09:38] LABS: HEMATOCRIT 43.9 % (35.4-49); HEMOGLOBIN 14.9 GM/dL (11.7-16.9); MCH 30.1 pg (25.7-33.7); MCHC 33.9 g/dl (32.0-35.9); MEAN CELL VOLUME 88.8 fl (80-96); MEAN PLT VOLUME 9.4 fl (7.5-11.1); PLATELET COUNT 216 K/MM3 (134-434); RBC 4.94 M/mm3 (4.00-5.60); WHITE BLOOD COUNT 4.3 K/mm3 (4.0-10.0)
[2019-09-25 09:45] LABS: BILIRUBIN,TOTAL 0.5 mg/dL (0.2-1); BLOOD UREA NITROGEN 9.2 mg/dL (7-18); CALCIUM 8.8 mg/dL (8.5-10.1); CREATININE 0.8 mg/dL (0.55-1.3); POTASSIUM 4.5 mmol/L (3.5-5.1); TOT PROT 6.9 g/dl (6.4-8.2)
[2019-09-25 09:51] LABS: URINE APPEARANCE CLEAR; URINE BILIRUBIN NEGATIVE (NEGATIVE); URINE COLOR YELLOW; URINE GLUCOSE (UA) 3+ (NEGATIVE); URINE KETONE TRACE (NEGATIVE); URINE LEUK ESTERASE NEGATIVE (NEGATIVE); URINE NITRITE NEGATIVE (NEGATIVE); URINE PROTEIN NEGATIVE (NEGATIVE); URINE UROBILINOGEN 0.2 mg/dL (0.2-1.0)
[2019-09-25] MEDS: NIFEdipine E.R. 30 MG TABLET (FP) PO SCH (10:42)
[2019-09-25] MEDS: PRENATAL VITAMINS W/ FOLIC ACID TABLET (FP) PO SCH (10:43)
--- NOTE | 2019-09-25 11:26 | PN ---
[facility] CIWA - CIWA Score Nausea/Vomitin-Mild Nausea/No Vomiting Muscle Tremors: 2 Anxiety: 2 Agitation: 2 Paroxysmal Sweats: No Perspiration Orientation: 0-Oriented Tacttile Disturbances: 1-Very Mild Itch/Numbness Auditory Disturbances: 0-None Visual Disturbances: 0-None Headache: 2-Mild CIWA-Ar Total Score: 10 S Progress Note (SOAP) Subjective: alert,irritable,anxious,interrupted sleep,anxious,interrupted sleep,tremor Objective: 09/25/19 11:25 Vital Signs Temperature 96.1 F L 09/25/19 10:00 Pulse Rate 81 09/25/19 10:00 Respiratory Rate 18 09/25/19 10:00 Blood Pressure 125/76 09/25/19 10:00 O2 Sat by Pulse Oximetry (%) 09/25/19 11:25 Laboratory Last Values WBC 4.3 K/mm3 (4.0-10.0) 09/25/19 08:00 RBC 4.94 M/mm3 (4.00-5.60) 09/25/19 08:00 Hgb 14.9 GM/dL (11.7-16.9) 09/25/19 08:00 Hct 43.9 % (35.4-49) 09/25/19 08:00 MCV 88.8 fl (80-96) 09/25/19 08:00 MCH 30.1 pg (25.7-33.7) 09/25/19 08:00 MCHC 33.9 g/dl (32.0-35.9) 09/25/19 08:00 RDW 14.0 % (11.9-15.9) 09/25/19 08:00 Plt Count 216 K/MM3 (134-434) 09/25/19 08:00 MPV 9.4 fl (7.5-11.1) 09/25/19 08:00 Sodium 140 mmol/L (136-145) 09/25/19 08:00 Potassium 4.5 mmol/L (3.5-5.1) 09/25/19 08:00 Chloride 106 mmol/L (98-107) 09/25/19 08:00 Carbon Dioxide 30 mmol/L (21-32) 09/25/19 08:00 Anion Gap 4 MMOL/L (8-16) L 09/25/19 08:00 BUN 9.2 mg/dL (7-18) 09/25/19 08:00 Creatinine 0.8 mg/dL (0.55-1.3) 09/25/19 08:00 Est GFR (CKD-EPI)AfAm 119.88 09/25/19 08:00 Est GFR (CKD-EPI)NonAf 103.43 09/25/19 08:00 POC Glucometer 232 UNITS (80-120) 09/25/19 05:42 Random Glucose 254 mg/dL (74-106) H 09/25/19 08:00 Calcium 8.8 mg/dL (8.5-10.1) 09/25/19 08:00 Total Bilirubin 0.5 mg/dL (0.2-1) 09/25/19 08:00 AST 11 U/L (15-37) L 09/25/19 08:00 ALT 23 U/L (13-61) 09/25/19 08:00 Alkaline Phosphatase 67 U/L (45-117) 09/25/19 08:00 Total Protein 6.9 g/dl (6.4-8.2) 09/25/19 08:00 Albumin 4.0 g/dl (3.4-5.0) 09/25/19 08:00 Urine Color Yellow 09/25/19 07:40 Urine Appearance Clear 09/25/19 07:40 Urine pH 5.0 (5.0-8.0) D 09/25/19 07:40 Ur Specific [place] 1.039 (1.010-1.035) H 09/25/19 07:40 Urine Protein Negative (NEGATIVE) 09/25/19 07:40 Urine Glucose (UA) 3+ (NEGATIVE) H 09/25/19 07:40 Urine Ketones Trace (NEGATIVE) H 09/25/19 07:40 Urine Blood Negative (NEGATIVE) 09/25/19 07:40 Urine Nitrite Negative (NEGATIVE) 09/25/19 07:40 Urine Bilirubin Negative (NEGATIVE) 09/25/19 07:40 Urine Urobilinogen 0.2 mg/dL (0.2-1.0) 09/25/19 07:40 Ur Leukocyte Esterase Negative (NEGATIVE) 09/25/19 07:40 Assessment: 09/25/19 11:26 withdrawal symptom Plan: continue detox valium regimen,bgm monitoring
--- NOTE | 2019-09-25 13:56 | CONSULT ---
[facility] Psychiatric Consult - Data Date of interview: 09/25/19 Admission source: [facility] Identifying data: Patient is a 53 year old single brendan male, without children, unemployed, homeless, and is supported by [facility]. This is one of multiple admissions for patient. Patient admitted to for alcohol dependence. Substance Abuse History: Smoking Cessation. Smoking history: Former smoker. Have you smoked in the past 12 months: Yes. Aproximately how many cigarettes per day: 0 (No smoking for 9 months). If you are a former smoker, when did you quit?: 06/2018. Cigars Per Day: 0. Hx Chewing Tobacco Use: No. Initiated information on smoking cessation: No. - Substance & Tx. History. Hx Alcohol Use: Yes. Hx Substance Use: Yes. Substance Use Type: Alcohol, Marijuana. Hx Substance Use Treatment: Yes ([facility]). - Substances abused. Alcohol. Substance route: Oral. Frequency: 3-6 times per week. Amount used: 8(16oz of beer) , 1 pint OF VODKA. Age of first use: 24. Date of last use: 09/24/19. * * Marijuana/Hashish. Substance route: Smoking. Frequency: 1-3 times last 30 days. Amount used: $30. Age of first use: 19. Date of last use: 09/07/19. * * Alprazolam (Xanax). Substance route: Oral. Frequency: 1-2 times per week. Amount used: 2 sticks. Age of first use: 51. Date of last use: 06/12/19. Other. Other (specify): Xanax. Substance route: Oral. Frequency: 1-2 times per week. Amount used: 2 sticks (2mg). Age of first use: 53. Date of last use : 09/13/19. Cocaine. Substance route: Inhalation. Frequency: 1-2 times per week. Amount used: $40. Age of first use: 24. Date of last use: 06/09/19 Medical History: Significant for hypertension, dyslipidemia and diabetes mellitus and history of gonorrhea Psychiatric History: Patient's first psychiatric contact was in the 1969's while living in [facility]. He reports seeing a psychiatrist due to his behavioral problems and reports being prescribed tegretol. Then in 1988 while in [facility] rehab he reports being prescribed risperdal + Seroquel because of his emotional outburst. States that alot of his emotional outburst were due to being raised in a dysfunctional family. Patient most recently received outpatient psychiatric care at [facility] outpatient clinic and reports being prescribed vistaril 50mg prn due to his anxiety disorder. He discontinued treatment after he was assigned a new psychiatrist who refused to prescribe him vistaril. At present patient reports stable mood. Patient denies h /o auditory/visual hallucinations. No psychosis noted. Patient denies h/o suicide attempt. Physical/Sexual Abuse/Trauma History: denies. Mental Status Exam - Mental Status Exam Alert and Oriented to: Time, Place, Person Cognitive Function: Good Patient Appearance: Well Groomed Mood: Euthymic Affect: Mood Congruent Patient Behavior: Cooperative Speech Pattern: Appropriate Voice Loudness: Normal Thought Process: Goal Oriented Thought Disorder: Not Present Hallucinations: Denies Suicidal Ideation: Denies Homicidal Ideation: Denies Insight/Judgement: Poor Sleep: Fair Appetite: Fair Muscle strength/Tone: Normal Gait/Station: Normal Psychiatric Findings - Problem List ([place] 1, 2,3) (1) Cannabis dependence Current Visit: Yes Status: Acute (2) Alcohol dependence with uncomplicated withdrawal Current Visit: Yes Status: Acute (3) Sedative, hypnotic or anxiolytic abuse, uncomplicated Current Visit: Yes Status: Acute (4) Substance-induced anxiety disorder Current Visit: Yes Status: Acute - Initial Treatment Plan Initial Treatment Plan: Psychoeducation provided. Detoxification in progress. Will order Vistaril 50mg q6h for anxiety. Benefits and side effects discussed. Verbal consent given.
[2019-09-25] MEDS: MELATONIN 5 MG TABLETS PO PRN (21:51)
[2019-09-25] MEDS: THIAMINE HCL 100 MG TABLET (FP) PO SCH (21:51)
[2019-09-26] MEDS: diazePAM 5 MG TABLET PO SCH ×2 (06:05→18:08)
[2019-09-26] MEDS: metFORMIN HCL 500 MG TABLET (FP) PO SCH ×2 (06:05→17:30)
[2019-09-26] MEDS: PRENATAL VITAMINS W/ FOLIC ACID TABLET (FP) PO SCH (10:06)
[2019-09-26] MEDS: NIFEdipine E.R. 30 MG TABLET (FP) PO SCH (10:06)
[2019-09-26] MEDS: hydrOXYzine PAMOATE 50 MG CAPSULE (FP) PO PRN (10:08)
--- NOTE | 2019-09-26 10:09 | PN ---
S CIWA - CIWA Score Nausea/Vomitin-No Nausea/No Vomiting Muscle Tremors: 2 Anxiety: 1-Mildly Anxious Agitation: 1-Slight > Activity Paroxysmal Sweats: No Perspiration Orientation: 0-Oriented Tacttile Disturbances: 0-None Auditory Disturbances: 0-None Visual Disturbances: 0-None Headache: 0-None Present CIWA-Ar Total Score: 4 BHS Progress Note (SOAP) Subjective: feeling better little anxiety Objective: 09/26/19 10:09 Vital Signs Temperature 98.2 F 09/26/19 09:33 Pulse Rate 93 H 09/26/19 09:33 Respiratory Rate 20 09/26/19 09:33 Blood Pressure 144/68 09/26/19 09:33 O2 Sat by Pulse Oximetry (%) Laboratory Tests 09/25/19 09/25/19 09/25/19 05:42 07:40 08:00 WBC 4.3 RBC 4.94 Hgb 14.9 Hct 43.9 MCV 88.8 MCH 30.1 MCHC 33.9 RDW 14.0 Plt Count 216 MPV 9.4 Sodium Potassium Chloride Carbon Dioxide Anion Gap BUN Creatinine Est GFR (CKD-EPI)AfAm Est GFR (CKD-EPI)NonAf POC Glucometer 232 Random Glucose Calcium Total Bilirubin AST ALT Alkaline Phosphatase Total Protein Albumin Urine Color Yellow Urine Appearance Clear Urine pH 5.0 D Ur Specific [place] 1.039 H Urine Protein Negative Urine Glucose (UA) 3+ H Urine Ketones Trace H Urine Blood Negative Urine Nitrite Negative Urine Bilirubin Negative Urine Urobilinogen 0.2 Ur Leukocyte Esterase Negative 09/25/19 09/25/19 09/26/19 08:00 16:43 06:04 WBC RBC Hgb Hct MCV MCH MCHC RDW Plt Count MPV Sodium 140 Potassium 4.5 Chloride 106 Carbon Dioxide 30 Anion Gap 4 L BUN 9.2 Creatinine 0.8 Est GFR (CKD-EPI)AfAm 119.88 Est GFR (CKD-EPI)NonAf 103.43 POC Glucometer 253 304 Random Glucose 254 H Calcium 8.8 Total Bilirubin 0.5 AST 11 L ALT 23 Alkaline Phosphatase 67 Total Protein 6.9 Albumin 4.0 Urine Color Urine Appearance Urine pH Ur Specific [place] Urine Protein Urine Glucose (UA) Urine Ketones Urine Blood Urine Nitrite Urine Bilirubin Urine Urobilinogen Ur Leukocyte Esterase aaox3 ambulating no acute distress Assessment: 09/26/19 10:10 mild withdrawals Plan: continue detox d/c in am
[2019-09-26] MEDS: THIAMINE HCL 100 MG TABLET (FP) PO SCH (22:17)
[2019-09-27] MEDS ORDERED: diazePAM 5 MG TABLET PO ONE (06:00)
[2019-09-27] MEDS: metFORMIN HCL 500 MG TABLET (FP) PO SCH ×2 (07:30→17:38)
[2019-09-27] MEDS ORDERED: metFORMIN HCL 500 MG TABLET (FP) PO ONE (09:35)
[2019-09-27] MEDS: NIFEdipine E.R. 30 MG TABLET (FP) PO SCH (10:15)
[2019-09-27] MEDS: PRENATAL VITAMINS W/ FOLIC ACID TABLET (FP) PO SCH (10:15)
[2019-09-27] MEDS: hydrOXYzine PAMOATE 50 MG CAPSULE (FP) PO PRN (10:16)
--- NOTE | 2019-09-27 13:58 | DS ---
[facility] Detox Discharge Summary Admission Date: 09/24/19 Discharge Date: 09/27/19 - History Present History: Alcohol Dependence, Sedative Dependence Additional Comments: PATIENT GOING TO [facility] ([place]) FOR AFTERCARE. PATIENT WAS DISCHARGED FROM DETOX UNIT TO BE TAKEN OVER TO REHAB UNIT IN STABLE MEDICAL CONDITION. Pertinent Past History: Hypercholesterolemia, HTN, Type II DM, Depression, Anxiety, Panic Disorder. - Physical Exam Results Vital Signs: Vital Signs Temperature 98.4 F 09/27/19 09:25 Pulse Rate 87 09/27/19 09:25 Respiratory Rate 18 09/27/19 09:25 Blood Pressure 141/96 09/27/19 09:25 O2 Sat by Pulse Oximetry (%) Pertinent Admission Physical Exam Findings: WITHDRAWAL SYMPTOMS. Laboratory Tests 09/25/19 09/25/19 09/25/19 05:42 07:40 08:00 WBC 4.3 RBC 4.94 Hgb 14.9 Hct 43.9 MCV 88.8 MCH 30.1 MCHC 33.9 RDW 14.0 Plt Count 216 MPV 9.4 Sodium Potassium Chloride Carbon Dioxide Anion Gap BUN Creatinine Est GFR (CKD-EPI)AfAm Est GFR (CKD-EPI)NonAf POC Glucometer 232 Random Glucose Calcium Total Bilirubin AST ALT Alkaline Phosphatase Total Protein Albumin Urine Color Yellow Urine Appearance Clear Urine pH 5.0 D Ur Specific [place] 1.039 H Urine Protein Negative Urine Glucose (UA) 3+ H Urine Ketones Trace H Urine Blood Negative Urine Nitrite Negative Urine Bilirubin Negative Urine Urobilinogen 0.2 Ur Leukocyte Esterase Negative 09/25/19 09/25/19 09/26/19 08:00 16:43 06:04 WBC RBC Hgb Hct MCV MCH MCHC RDW Plt Count MPV Sodium 140 Potassium 4.5 Chloride 106 Carbon Dioxide 30 Anion Gap 4 L BUN 9.2 Creatinine 0.8 Est GFR (CKD-EPI)AfAm 119.88 Est GFR (CKD-EPI)NonAf 103.43 POC Glucometer 253 304 Random Glucose 254 H Calcium 8.8 Total Bilirubin 0.5 AST 11 L ALT 23 Alkaline Phosphatase 67 Total Protein 6.9 Albumin 4.0 Urine Color Urine Appearance Urine pH Ur Specific [place] Urine Protein Urine Glucose (UA) Urine Ketones Urine Blood Urine Nitrite Urine Bilirubin Urine Urobilinogen Ur Leukocyte Esterase 09/27/19 09:19 WBC RBC Hgb Hct MCV MCH MCHC RDW Plt Count MPV Sodium Potassium Chloride Carbon Dioxide Anion Gap BUN Creatinine Est GFR (CKD-EPI)AfAm Est GFR (CKD-EPI)NonAf POC Glucometer 360 Random Glucose Calcium Total Bilirubin AST ALT Alkaline Phosphatase Total Protein Albumin Urine Color Urine Appearance Urine pH Ur Specific [place] Urine Protein Urine Glucose (UA) Urine Ketones Urine Blood Urine Nitrite Urine Bilirubin Urine Urobilinogen Ur Leukocyte Esterase LABS NOTED. - Treatment Hospital Course: Detox Protocol Followed, Detoxed Safely, Responded well, Discharged Condition Good, Rehab Referral Accepted Patient has Accepted a Rehab Referral to: [facility] ([place], [place]). - Medication Discharge Medications: Ambulatory Orders Docusate Sodium [Stool Softener] 100 mg PO BID #60 capsule 04/14/19 [place]-3 Acid Ethyl Esters [Lovaza -] 1,000 mg PO BID #60 cap 04/14/19 Nifedipine [Procardia Xl] 60 mg PO DAILY #30 tab.er.24 06/18/19 metFORMIN HCL [Metformin HCl] 1,000 mg PO DAILY 07/04/19 Hydroxyzine HCl 50 mg PO BID 09/24/19 - Diagnosis (1) Alcohol dependence with uncomplicated withdrawal Current Visit: Yes Status: Acute (2) Cannabis abuse Current Visit: Yes Status: Acute (3) Sedative, hypnotic or anxiolytic abuse, uncomplicated Current Visit: Yes Status: Acute (4) Substance-induced anxiety disorder Current Visit: Yes Status: Acute (5) DM Diabetes mellitus type 2 Current Visit: Yes Status: Chronic (6) Essential hypertension Current Visit: Yes Status: Chronic (7) Frequent hospital admissions Current Visit: Yes Status: Chronic (8) Hypercholesterolemia Current Visit: Yes Status: Chronic (9) Obesity (BMI 30.0-34.9) Current Visit: Yes Status: Chronic (10) Substance induced mood disorder Current Visit: Yes Status: Suspected - AMA Did Patient Leave Against Medical Advice: No
--- NOTE | 2019-09-27 14:30 | HP ---
[facility] Rehab Assess/Revision - Admission History Admitted to Rehab from: [facility] Date of Admission to Rehab: 09/27/2019 - Vital signs Vital Signs: Vital Signs Period Temp Pulse Resp BP Sys/Kurtz Pulse Ox Last 24 Hr 97.2 F-98.4 F 77-87 18-18 122-141/74-96 - Findings Detox History & Physical reviewed: Yes Concur with findings: Yes Comments/Additional Findings: PATIENT'S MEDICAL / MEDICATION HISTORY REVIEWED PRIOR TO DISCHARGE FROM DETOX UNIT. PATIENT WAS DISCHARGED FROM DETOX UNIT TO BE TAKEN OVER TO REHAB UNIT IN STABLE MEDICAL CONDITION. Inpatient Rehab Admission - Rehab Decision to Admit Inpatient rehab admission?: Yes - Initial Determination Are CD services needed?: Yes Free of communicable disease: Yes Not in need of hospitalization: Yes - Rehab Admission Criteria Previous failed treatment: Yes Poor recovery environment: Yes Comorbidities: Yes Lacks judgement: No Patient is meeting Inpatient Rehab admission criteria:: Yes
--- NOTE | 2019-09-27 14:43 | PN ---
[facility] Progress Note Note: Psychiatry Attending's note : Digester Hand is informed of patient's transfer to [address] From [address] [place] [address]. Case discussed, via telephone, with medical [employer]PERVISOR Johnatahn Oneal. No intervention to be implemented by Psychiatry. No psychotropics prescribed. Patient is only on hydroxyzine. Continuity of care.
[2019-09-27] MEDS: THIAMINE HCL 100 MG TABLET (FP) PO SCH (22:11)
[2019-09-28] MEDS: metFORMIN HCL 500 MG TABLET (FP) PO SCH ×2 (07:02→16:33)
[2019-09-28] MEDS: PRENATAL VITAMINS W/ FOLIC ACID TABLET (FP) PO SCH (10:03)
[2019-09-28] MEDS: NIFEdipine E.R. 30 MG TABLET (FP) PO SCH (10:03)
[2019-09-28] MEDS: THIAMINE HCL 100 MG TABLET (FP) PO SCH (21:31)
[2019-09-28] MEDS: hydrOXYzine PAMOATE 50 MG CAPSULE (FP) PO PRN (21:31)
[2019-09-29] MEDS: metFORMIN HCL 500 MG TABLET (FP) PO SCH ×2 (06:05→16:40)
[2019-09-29] MEDS: PRENATAL VITAMINS W/ FOLIC ACID TABLET (FP) PO SCH (10:19)
[2019-09-29] MEDS: NIFEdipine E.R. 30 MG TABLET (FP) PO SCH (15:06)
[2019-09-29] MEDS: hydrOXYzine PAMOATE 50 MG CAPSULE (FP) PO PRN (15:07)
[2019-09-29] MEDS: THIAMINE HCL 100 MG TABLET (FP) PO SCH (21:44)
[2019-09-29] MEDS: MELATONIN 5 MG TABLETS PO PRN (21:45)
[2019-09-30] MEDS: metFORMIN HCL 500 MG TABLET (FP) PO SCH ×2 (07:26→16:40)
[2019-09-30] MEDS: METHOCARBAMOL 500 MG TABLET PO PRN (10:11)
[2019-09-30] MEDS: NIFEdipine E.R. 30 MG TABLET (FP) PO SCH (10:11)
[2019-09-30] MEDS: PRENATAL VITAMINS W/ FOLIC ACID TABLET (FP) PO SCH (10:11)
[2019-09-30] MEDS: MELATONIN 5 MG TABLETS PO PRN (21:33)
[2019-09-30] MEDS: THIAMINE HCL 100 MG TABLET (FP) PO SCH (21:33)
[2019-10-01] MEDS: metFORMIN HCL 500 MG TABLET (FP) PO SCH (06:47)
[2019-10-01 07:11] VITALS: BP 136/89; PULSE 87; TEMP 97.8
--- NOTE | 2019-10-01 08:50 | DS ---
[facility] Rehab Discharge Summary - [facility] Rehab Discharge Summary Admission Date: 09/24/19 Discharge Date: 10/01/19 - History Present History: Alcohol dependence, Cannabis dependence Pertinent Past History: KNOWN TO PROGRAM WITH NUMEROUS ADMISSION. CLIENT LAST HERE 3 WEEKS AGO. SIGNED OUT AMA FOR PERSONAL REASON. HE REPORTS DRINKING 4 X AWEEK. + EYE [employer]NAG[employer]ESSION[employer]. ADDICTION STARTED AGE 19. UNABLE TO GO MORE W/O FEELING SICK. DENIES ANY SIGNIFICANT CLEAN TIME EXCEPT WHEN IN TXMENT THIS PAST YEAR. LAST CLEAN TIME 9 YEARS AGO FOR 3 YEARS. + BLACK OUTS X1. DENIES SIEIZURES, AVH. LIVES ALONE, UNEMPLOYED, DENIES LEGALS - Discharge Physical Exam Vital Signs: Vital Signs Temperature 97.8 F 10/01/19 07:10 Pulse Rate 87 10/01/19 07:10 Respiratory Rate 18 10/01/19 07:10 Blood Pressure 136/89 10/01/19 07:10 O2 Sat by Pulse Oximetry (%) Pertinent Admission Physical Exam Findings: Physical General Appearance: No apparent distress HEENTM: Normocephalic, JACKLYN, EDENTULOUS Respiratory: Lungs Clear, Neck: Supple, Trachea in good position Cardiology: S1, S2 Abdominal: +Bowel Sounds, Musculoskeletal: full range of Motion, Gait Steady 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: CN 2-12 intact, Motor Strength 5/5, - Treatment Discharge Condition: Outpatient referral accepted (Patient will go to [facility]. medically stable for discharge.) - Medication Discharge Medications: Ambulatory Orders Docusate Sodium [Stool Softener] 100 mg PO BID #60 capsule 04/14/19 [place]-3 Acid Ethyl Esters [Lovaza -] 1,000 mg PO BID #60 cap 04/14/19 Hydroxyzine HCl 50 mg PO BID 09/24/19 Nifedipine [Procardia Xl] 60 mg PO DAILY #30 tab.er.24 10/01/19 metFORMIN HCL [Metformin HCl] 1,000 mg PO DAILY #30 tablet 10/01/19 - Medication-Assisted Treatment (MAT) Medication-Assisted Treatment (MAT): No - Discharge Instructions Diet, activity, other medical instructions: Diet: as tolerated Activity: as tolerated Other medical instructions: Please follow up with aftercare referral. - Diagnosis (1) Alcohol dependence with uncomplicated withdrawal Current Visit: Yes Status: Chronic (2) Cannabis dependence Current Visit: Yes Status: Chronic - Follow-up Referral Minutes to complete discharge: 20 - AMA Did Patient Leave Against Medical Advice: No
== END 2019-10-01 09:30 | disposition home or self-care (01) | DRG 895 ==
LOC: YASAS 15:29 → Y6N 22:41 → Y3W 09-27 12:33
PROVIDERS: ADMIT Allergy & Immunology; ATTEND Neuromusculoskeletal Medicine & OMM
PROC: HZ2ZZZZ Detoxification Services for Substance Abuse Treatment (ICD-10-PCS; 2019-09-24)
PROC: HZ42ZZZ Group Counseling for Substance Abuse Treatment, Cognitive-Behavioral (ICD-10-PCS; principal; 2019-09-27)
DX: F10.20 Alcohol dependence, uncomplicated (principal); F13.20 Sedative, hypnotic or anxiolytic dependence, uncomplicated; F19.280 Other psychoactive substance dependence with psychoactive substance-induced anxiety disorder; F12.20 Cannabis dependence, uncomplicated; F17.210 Nicotine dependence, cigarettes, uncomplicated; F19.24 Other psychoactive substance dependence with psychoactive substance-induced mood disorder; F32.9 Major depressive disorder, single episode, unspecified; F41.9 Anxiety disorder, unspecified; F41.0 Panic disorder [episodic paroxysmal anxiety]; I10 Essential (primary) hypertension; E78.00 Pure hypercholesterolemia, unspecified; E11.9 Type 2 diabetes mellitus without complications; Z79.84 Long term (current) use of oral hypoglycemic drugs; E66.9 Obesity, unspecified; Z68.31 Body mass index [BMI] 31.0-31.9, adult; Z86.19 Personal history of other infectious and parasitic diseases; Z78.9 Other specified health status; Z88.8 Allergy status to other drugs, medicaments and biological substances; Z91.02 Food additives allergy status
CPT/HCPCS: 36415; 80053; 81003; 82962; 85027

== ENCOUNTER 2019-10-29 10:41 | Inpatient (IN) | payer MEDICARE, OTHER ==
[2019-10-29 11:07] VITALS: BMI 31.3
--- NOTE | 2019-10-29 11:14 | HP ---
CIWA Score Nausea/Vomitin Muscle Tremors: 3 Anxiety: 3 Agitation: 3 Paroxysmal Sweats: No Perspiration Orientation: 0-Oriented Tacttile Disturbances: 1-Very Mild Itch/Numbness Auditory Disturbances: 0-None Visual Disturbances: 0-None Headache: 2-Mild CIWA-Ar Total Score: 14 - Admission Criteria OASAS Guidelines: Admission for Medically Managed Detox: Requires at least one of the followin. CIWA greater than 12 2. Seizures within the past 24 hours 3. Delirium tremens within the past 24 hours 4. Hallucinations within the past 24 hours 5. Acute intervention needed for co occurring medical disorder 6. Acute intervention needed for co occurring psychiatric disorder 7. Severe withdrawal that cannot be handled at a lower level of care (continued vomiting, continued diarrhea, abnormal vital signs) requiring intravenous medication and/or fluids 8. Admitting History and Physical - Admission Chief Complaint: i neeed help to stop drinking alcohol and marijuana abused History of Present Illness: this 53 years old male with alcohol and marijuana dependence,seeking help to stop,also marijuana abused multiple admissions in detox and rehab last admission [facility] detox 09/02/19 to 09/04/19,last rehab 09/24/19 to 10/01/19 [facility] syncope alcohol related history of hypertension,type 2 dm,non compliance insomnia plan for rehab after detox longest sobriety 3 years History Source: Patient Limitations to Obtaining History: No Limitations - Past Medical History 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 Cardiovascular: Yes: HTN, Hyperlipdemia Psych: Yes: Anxiety, Other (insomnia) Endocrine: Yes: Diabetes Mellitus, Other - Past Surgical History Past Surgical History: Yes: None - Smoking History Smoking history: Former smoker Have you smoked in the past 12 months: Yes Aproximately how many cigarettes per day: 2 If you are a former smoker, when did you quit?: 04/23 - Alcohol/Substance Use Hx Alcohol Use: Yes History of Substance Use: reports: Marijuana - Social History Usual Living Arrangement: Yes: Alone Occupation: on disability History of Recent Travel: No Other Social History: this 53 years old male with alcohol dependence and marijuana abused,seeking detox,living alone,ex smoker,anxiety and insonia,. hypertension,ype 2 dm,. need help to stop drinking alacohol Admission ROS [facility] - HPI Chief Complaint: i need help to stop drinking alcohol and marijuana Allergies/Adverse Reactions: Allergies Allergy/AdvReac Type Severity Reaction Status Date / Time lactose AdvReac Severe diarrhea Verified 10/29/19 10:58 melatonin AdvReac Intermediate depressed Verified 10/29/19 10:58 trazodone AdvReac Intermediate depression Verified 10/29/19 10:58 Exam Limitations: No Limitations - Ebola screening Have you traveled outside of the country in the last 21 days: No (N) Have you had contact with anyone from an Ebola affected area: No Do you have a fever: No - Review of Systems Constitutional: Night Sweats, Changes in sleep, Weakness, Weight Stable, Unintentional Wgt. Loss EENT: reports: Nose Congestion Respiratory: reports: No Symptoms reported Cardiac: reports: No Symptoms Reported GI: reports: Nausea, Poor Fluid Intake, Abdominal cramping : reports: No Symptoms Reported Musculoskeletal: reports: Muscle Pain Integumentary: reports: Dryness Neuro: reports: Headache, Tremors Endocrine: reports: No Symptoms Reported Hematology: reports: No Symptoms Reported Psychiatric: reports: No Sypmtoms Reported, Judgement Intact, Mood/Affect Appropiate, Orientated x3 (isomnia), Anxious Other Systems: Reviewed and Negative Patient History - Patient Medical History Hx Anemia: No Hx Asthma: No Hx Chronic Obstructive Pulmonary Disease (COPD): No Hx Cancer: No Hx Cardiac Disorders: No Hx Congestive Heart Failure: No Hx Hypertension: Yes (non compliance) Hx Hypercholesterolemia: Yes (non compliance) Hx Pacemaker: No HX Cerebrovascular Accident: No Hx Seizures: No Hx Dementia: No Hx Diabetes: Yes (type 2 dm) Hx Gastrointestinal Disorders: No Hx Liver Disease: No Hx Genitourinary Disorders: No Hx Sexually Transmitted Disorders: Yes (syphilis at age 38, completed tx.) Hx Renal Disease (ESRD): No Hx Thyroid Disease: No Hx Human Immunodeficiency Virus (HIV): No (NEGATIVE HX last 12/24) Hx Hepatitis C: No Hx Depression: Yes (anxiety,insomnia) Hx Suicide Attempt: No Hx Bipolar Disorder: No Hx Schizophrenia: No Other Medical History: no suicidal,no homicidal - Patient Surgical History Past Surgical History: No Hx Neurologic Surgery: No Hx Cataract Extraction: No Hx Cardiac Surgery: No Hx Lung Surgery: No Hx Breast Surgery: No Hx Breast Biopsy: No Hx Abdominal Surgery: No Hx Appendectomy: No Hx Cholecystectomy: No Hx Genitourinary Surgery: No Hx Section: No Hx Orthopedic Surgery: No Hx Hysterectomy: No Anesthesia Reaction: No - PPD History Previous Implant?: Yes Documented Results: Negative w/proof Implanted On Prior [facility] Admission?: Yes Date: 11/07/18 Results: 0 mm PPD to be Administered?: No - Smoking Cessation Smoking history: Former smoker Have you smoked in the past 12 months: Yes Aproximately how many cigarettes per day: 3 If you are a former smoker, when did you quit?: 04/23 Cigars Per Day: 0 Hx Chewing Tobacco Use: No Initiated information on smoking cessation: Yes 'Breaking Loose' booklet given: 10/29/19 - Substance & Tx. History Hx Alcohol Use: Yes Hx Substance Use: Yes Substance Use Type: Alcohol, Marijuana Hx Substance Use Treatment: Yes ([facility] 09/02/19 to 09/04/19,rehab 09/24/19 to 09/11 rehab) - Substances abused Alcohol Substance route: Oral Frequency: Daily Amount used: 2 of 6 packs of 12 ozs of beer/1 pint vodka Age of first use: 19 Date of last use: 10/28/19 Marijuana/Hashish Substance route: Smoking Frequency: 1-3 times last 30 days Amount used: $30 Age of first use: 19 Date of last use: 10/28/19 Alprazolam (Xanax) Substance route: Oral Frequency: 1-2 times per week Amount used: 2 sticks Age of first use: 51 Date of last use: 06/12/19 Other Other (specify): Xanax Substance route: Oral Frequency: 1-2 times per week Amount used: 2 sticks (2mg) Age of first use: 53 Date of last use: 09/13/19 Cocaine Substance route: Inhalation Frequency: 1-2 times per week Amount used: $40 Age of first use: 24 Date of last use: 06/09/19 Admission Physical Exam BHS - Vital Signs Vital Signs: Vital Signs Temperature 98.2 F 10/29/19 10:57 Pulse Rate 94 H 10/29/19 10:57 Respiratory Rate 18 10/29/19 10:57 Blood Pressure 159/91 10/29/19 10:57 O2 Sat by Pulse Oximetry (%) - Physical General Appearance: Yes: Moderate Distress, Tremorous, Irritable, Sweating, Anxious HEENTM: Yes: Normal ENT Inspection, JACKLYN, Pharynx Normal Respiratory: Yes: Lungs Clear, Normal Breath Sounds, No Respiratory Distress Neck: Yes: Within Normal Limits, Supple, Trachea in good position Breast: Yes: Within Normal Limits Cardiology: Yes: Within Normal Limits, Regular Rhythm, Regular Rate, S1, S2 Abdominal: Yes: Within Normal Limits, Normal Bowel Sounds, Non Tender, Flat, Soft Genitourinary: Yes: Within Normal Limits Back: Yes: Muscle Spasm Musculoskeletal: Yes: Back pain, Muscle Pain Extremities: Yes: Within Normal Limits, Normal Range of Motion, Tremors 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: Yes: laboratory apparatus glass grinder II-XII NML intact, Alert, Motor Strength 5/5 Integumentary: Yes: Dry, Track Lozada (cellulitis left leg) Lymphatic: Yes: Within Normal Limits - Diagnostic (1) Alcohol dependence with uncomplicated withdrawal Current Visit: No Status: Chronic (2) Nicotine dependence Current Visit: No Status: Acute Qualifiers: Nicotine product type: cigarettes Substance use status: in withdrawal Qualified Code(s): F17.213 - Nicotine dependence, cigarettes, with withdrawal (3) Syncope Current Visit: No Status: Acute Qualifiers: Syncope type: unspecified Qualified Code(s): R55 - Syncope and collapse (4) Cannabis dependence Current Visit: No Status: Chronic (5) DM Diabetes mellitus type 2 Current Visit: No Status: Chronic Comment: bgm = (6) Essential hypertension Current Visit: No Status: Chronic (7) Hypercholesterolemia Current Visit: No Status: Chronic Cleared for Admission S - Detox or Rehab [facility] Level of Care: Medically Managed Detox Regimen/Protocol: Librium Breathalyzer - Breathalyzer Breathalyzer: 0 Urine Drug Screen - Test Device Lot number: [id number] Expiration date: 06/04/21 - Control Is test valid?: Yes - Results Drug screen NEGATIVE: No Urine drug screen results: THC-Marijuana, BZO-Benzodiazepines Inpatient Rehab Admission - Rehab Decision to Admit Inpatient rehab admission?: No
[2019-10-29] MEDS ORDERED: hydrOXYzine PAMOATE 25 MG CAPSULE (FP) PO PRN (11:32)
[2019-10-29] MEDS ORDERED: METHOCARBAMOL 500 MG TABLET PO PRN (11:32)
[2019-10-29] MEDS ORDERED: ACETAMINOPHEN 325 MG TABLET (FP) PO PRN ×2 (11:32)
[2019-10-29] MEDS ORDERED: MENTHOL/PHENOL 1 EACH UD MM PRN (11:32)
[2019-10-29] MEDS ORDERED: MAGNESIUM HYDROX 2400MG/30ML ORAL SUSPENSION 30 ML CUP PO PRN (11:32)
[2019-10-29] MEDS ORDERED: BISMUTH SUBSALICYLATE 524 MG/30 ML UD PO PRN (11:32)
[2019-10-29] MEDS ORDERED: MAGNESIUM CITRATE 300 ML BOTTLE PO PRN (11:32)
[2019-10-29] MEDS ORDERED: MAG HYDROX/AL HYDROX/SIMETH 30 ML UNIT-DOSE CUP PO PRN (11:32)
[2019-10-29] MEDS ORDERED: IBUPROFEN 400 MG TABLET (FP) PO PRN (11:32)
[2019-10-29] MEDS ORDERED: diphenhydrAMINE HCL 25 MG CAPSULE (FP) PO PRN (12:43)
[2019-10-29] MEDS: chlordiazePOXIDE HCL 25 MG CAPSULE PO PRN (13:16)
[2019-10-29] MEDS: NIFEdipine E.R. 30 MG TABLET (FP) PO SCH (13:16)
[2019-10-29] MEDS ORDERED: INSULIN (NOVOLOG) ASPART 100 UNITS/ML 10ML VIAL SQ ONE (14:15)
[2019-10-29] MEDS ORDERED: INSULIN SLIDING SCALE (NOVOLOG) 1 VIAL SQ ONE (14:15)
[2019-10-29] MEDS: chlordiazePOXIDE HCL 25 MG CAPSULE PO SCH ×2 (16:59→22:26)
[2019-10-29] MEDS: metFORMIN HCL 500 MG TABLET (FP) PO SCH (16:59)
[2019-10-29] MEDS: CEPHALEXIN MONOHYDRATE 500 MG CAPSULE (UD) PO SCH ×2 (17:00→23:06)
[2019-10-29] MEDS: INSULIN SLIDING SCALE (NOVOLOG) 1 VIAL SQ SCH ×2 (17:04→22:30)
[2019-10-29] MEDS ORDERED: MELATONIN 5 MG TABLETS PO PRN (22:00)
[2019-10-29] MEDS: THIAMINE HCL 100 MG TABLET (FP) PO SCH (22:26)
[2019-10-29] MEDS: OMEGA-3 ACID ETHYL ESTERS (FATTY-ACIDS) 1 GM CAPSULE (FP) PO SCH (22:26)
[2019-10-30] MEDS: chlordiazePOXIDE HCL 25 MG CAPSULE PO SCH ×4 (05:50→22:26)
[2019-10-30] MEDS: CEPHALEXIN MONOHYDRATE 500 MG CAPSULE (UD) PO SCH ×3 (05:51→18:09)
[2019-10-30] MEDS: INSULIN SLIDING SCALE (NOVOLOG) 1 VIAL SQ SCH ×4 (06:26→21:03)
[2019-10-30] MEDS: metFORMIN HCL 500 MG TABLET (FP) PO SCH ×2 (07:47→16:52)
[2019-10-30] MEDS: OMEGA-3 ACID ETHYL ESTERS (FATTY-ACIDS) 1 GM CAPSULE (FP) PO SCH ×2 (10:06→22:58)
[2019-10-30] MEDS: PRENATAL VITAMINS W/ FOLIC ACID TABLET (FP) PO SCH (10:06)
[2019-10-30] MEDS: NIFEdipine E.R. 30 MG TABLET (FP) PO SCH (10:06)
[2019-10-30 10:13] LABS: HEMATOCRIT 43.5 % (35.4-49); HEMOGLOBIN 14.9 GM/dL (11.7-16.9); MCH 30.4 pg (25.7-33.7); MCHC 34.3 g/dl (32.0-35.9); MEAN CELL VOLUME 88.6 fl (80-96); MEAN PLT VOLUME 9.5 fl (7.5-11.1); PLATELET COUNT 181 K/MM3 (134-434); RBC 4.91 M/mm3 (4.00-5.60); RDW 13.7 % (11.9-15.9); WHITE BLOOD COUNT 5.8 K/mm3 (4.0-10.0)
[2019-10-30 10:16] LABS: URINE APPEARANCE CLEAR; URINE BILIRUBIN NEGATIVE (NEGATIVE); URINE COLOR YELLOW; URINE GLUCOSE (UA) 3+ (NEGATIVE); URINE KETONE TRACE (NEGATIVE); URINE LEUK ESTERASE NEGATIVE (NEGATIVE); URINE NITRITE NEGATIVE (NEGATIVE); URINE PROTEIN NEGATIVE (NEGATIVE); URINE UROBILINOGEN 0.2 mg/dL (0.2-1.0)
[2019-10-30 10:43] LABS: ALBUMIN 3.8 g/dl (3.4-5.0); BILIRUBIN,TOTAL 0.3 mg/dL (0.2-1); BLOOD UREA NITROGEN 13.6 mg/dL (7-18); CALCIUM 9.2 mg/dL (8.5-10.1); CREATININE 0.8 mg/dL (0.55-1.3); POTASSIUM 4.4 mmol/L (3.5-5.1); TOT PROT 7.2 g/dl (6.4-8.2)
[2019-10-30] MEDS ORDERED: INSULIN SLIDING SCALE (NOVOLOG) 1 VIAL SQ ONE ×2 (11:42→16:46)
--- NOTE | 2019-10-30 12:15 | PN ---
[facility] CIWA - CIWA Score Nausea/Vomitin-No Nausea/No Vomiting Muscle Tremors: 2 Anxiety: 3 Agitation: 0-Normal Activity Paroxysmal Sweats: 3 Orientation: 0-Oriented Tacttile Disturbances: 1-Very Mild Itch/Numbness Auditory Disturbances: 0-None Visual Disturbances: 0-None Headache: 2-Mild CIWA-Ar Total Score: 11 S Progress Note (SOAP) Subjective: c/o sweats, anxiety, headche, and shakes. Objective: 10/30/19 12:15 Vital Signs 10/30/19 10/30/19 06:57 09:13 Temperature 96.2 F L 97.9 F Pulse Rate 75 95 H Respiratory 20 18 Rate Blood Pressure 119/68 158/76 Laboratory Last Values WBC 5.8 K/mm3 (4.0-10.0) 10/30/19 07:10 RBC 4.91 M/mm3 (4.00-5.60) 10/30/19 07:10 Hgb 14.9 GM/dL (11.7-16.9) 10/30/19 07:10 Hct 43.5 % (35.4-49) 10/30/19 07:10 MCV 88.6 fl (80-96) 10/30/19 07:10 MCH 30.4 pg (25.7-33.7) 10/30/19 07:10 MCHC 34.3 g/dl (32.0-35.9) 10/30/19 07:10 RDW 13.7 % (11.9-15.9) 10/30/19 07:10 Plt Count 181 K/MM3 (134-434) 10/30/19 07:10 MPV 9.5 fl (7.5-11.1) 10/30/19 07:10 Sodium 136 mmol/L (136-145) 10/30/19 07:10 Potassium 4.4 mmol/L (3.5-5.1) 10/30/19 07:10 Chloride 104 mmol/L (98-107) 10/30/19 07:10 Carbon Dioxide 26 mmol/L (21-32) 10/30/19 07:10 Anion Gap 6 MMOL/L (8-16) L 10/30/19 07:10 BUN 13.6 mg/dL (7-18) 10/30/19 07:10 Creatinine 0.8 mg/dL (0.55-1.3) 10/30/19 07:10 Est GFR (CKD-EPI)AfAm 119.88 10/30/19 07:10 Est GFR (CKD-EPI)NonAf 103.43 10/30/19 07:10 POC Glucometer 341 UNITS (80-120) 10/30/19 11:36 Random Glucose 398 mg/dL (74-106) H 10/30/19 07:10 Calcium 9.2 mg/dL (8.5-10.1) 10/30/19 07:10 Total Bilirubin 0.3 mg/dL (0.2-1) 10/30/19 07:10 AST 15 U/L (15-37) 10/30/19 07:10 ALT 27 U/L (13-61) 10/30/19 07:10 Alkaline Phosphatase 82 U/L (45-117) 10/30/19 07:10 Total Protein 7.2 g/dl (6.4-8.2) 10/30/19 07:10 Albumin 3.8 g/dl (3.4-5.0) 10/30/19 07:10 Urine Color Yellow 10/30/19 07:10 Urine Appearance Clear 10/30/19 07:10 Urine pH 5.0 (5.0-8.0) 10/30/19 07:10 Ur Specific [place] 1.038 (1.010-1.035) H 10/30/19 07:10 Urine Protein Negative (NEGATIVE) 10/30/19 07:10 Urine Glucose (UA) 3+ (NEGATIVE) H 10/30/19 07:10 Urine Ketones Trace (NEGATIVE) H 10/30/19 07:10 Urine Blood Negative (NEGATIVE) 10/30/19 07:10 Urine Nitrite Negative (NEGATIVE) 10/30/19 07:10 Urine Bilirubin Negative (NEGATIVE) 10/30/19 07:10 Urine Urobilinogen 0.2 mg/dL (0.2-1.0) 10/30/19 07:10 Ur Leukocyte Esterase Negative (NEGATIVE) 10/30/19 07:10 RPR Titer Nonreactive (NONREACTIVE) 10/30/19 07:10 Labs noted. Assessment: 10/30/19 12:15 AOX3, in no respiratory distress. Full ROM, ambulating in the unit. Withdrawal symptoms. Plan: continue detox.
[2019-10-30] MEDS: chlordiazePOXIDE HCL 25 MG CAPSULE PO PRN (14:57)
[2019-10-30] MEDS: THIAMINE HCL 100 MG TABLET (FP) PO SCH (22:26)
[2019-10-31] MEDS: CEPHALEXIN MONOHYDRATE 500 MG CAPSULE (UD) PO SCH ×4 (00:06→17:01)
[2019-10-31] MEDS: chlordiazePOXIDE HCL 25 MG CAPSULE PO SCH ×4 (06:10→22:04)
[2019-10-31] MEDS ORDERED: INSULIN SLIDING SCALE (NOVOLOG) 1 VIAL SQ ONE (07:23)
[2019-10-31] MEDS: INSULIN SLIDING SCALE (NOVOLOG) 1 VIAL SQ SCH ×4 (07:55→22:05)
[2019-10-31] MEDS: metFORMIN HCL 500 MG TABLET (FP) PO SCH ×2 (08:18→17:01)
[2019-10-31] MEDS ORDERED: NIFEdipine E.R 60 MG TABLET (UD) PO SCH (10:00)
--- NOTE | 2019-10-31 10:01 | PN ---
[facility] CIWA - CIWA Score Nausea/Vomitin-No Nausea/No Vomiting Muscle Tremors: 3 Anxiety: 2 Agitation: 3 Paroxysmal Sweats: 2 Orientation: 0-Oriented Tacttile Disturbances: 0-None Auditory Disturbances: 0-None Visual Disturbances: 0-None Headache: 0-None Present CIWA-Ar Total Score: 10 BHS Progress Note (SOAP) Subjective: sweats body aches irritable agitation Objective: 10/31/19 09:58 Vital Signs Temperature 97.6 F 10/31/19 09:17 Pulse Rate 96 H 10/31/19 09:17 Respiratory Rate 18 10/31/19 09:17 Blood Pressure 133/97 10/31/19 09:17 O2 Sat by Pulse Oximetry (%) Laboratory Tests 10/29/19 10/29/19 10/29/19 11:12 16:32 21:55 WBC RBC Hgb Hct MCV MCH MCHC RDW Plt Count MPV Sodium Potassium Chloride Carbon Dioxide Anion Gap BUN Creatinine Est GFR (CKD-EPI)AfAm Est GFR (CKD-EPI)NonAf POC Glucometer [phone] Random Glucose Calcium Total Bilirubin AST ALT Alkaline Phosphatase Total Protein Albumin Urine Color Urine Appearance Urine pH Ur Specific [place] Urine Protein Urine Glucose (UA) Urine Ketones Urine Blood Urine Nitrite Urine Bilirubin Urine Urobilinogen Ur Leukocyte Esterase RPR Titer 10/30/19 10/30/19 10/30/19 05:48 07:10 07:10 WBC 5.8 RBC 4.91 Hgb 14.9 Hct 43.5 MCV 88.6 MCH 30.4 MCHC 34.3 RDW 13.7 Plt Count 181 MPV 9.5 Sodium 136 Potassium 4.4 Chloride 104 Carbon Dioxide 26 Anion Gap 6 L BUN 13.6 Creatinine 0.8 Est GFR (CKD-EPI)AfAm 119.88 Est GFR (CKD-EPI)NonAf 103.43 POC Glucometer 448 Random Glucose 398 H Calcium 9.2 Total Bilirubin 0.3 AST 15 ALT 27 Alkaline Phosphatase 82 Total Protein 7.2 Albumin 3.8 Urine Color Urine Appearance Urine pH Ur Specific [place] Urine Protein Urine Glucose (UA) Urine Ketones Urine Blood Urine Nitrite Urine Bilirubin Urine Urobilinogen Ur Leukocyte Esterase RPR Titer 10/30/19 10/30/19 10/30/19 07:10 07:10 11:36 WBC RBC Hgb Hct MCV MCH MCHC RDW Plt Count MPV Sodium Potassium Chloride Carbon Dioxide Anion Gap BUN Creatinine Est GFR (CKD-EPI)AfAm Est GFR (CKD-EPI)NonAf POC Glucometer 341 Random Glucose Calcium Total Bilirubin AST ALT Alkaline Phosphatase Total Protein Albumin Urine Color Yellow Urine Appearance Clear Urine pH 5.0 Ur Specific [place] 1.038 H Urine Protein Negative Urine Glucose (UA) 3+ H Urine Ketones Trace H Urine Blood Negative Urine Nitrite Negative Urine Bilirubin Negative Urine Urobilinogen 0.2 Ur Leukocyte Esterase Negative RPR Titer Nonreactive 10/30/19 10/30/19 10/31/19 16:36 20:56 06:08 WBC RBC Hgb Hct MCV MCH MCHC RDW Plt Count MPV Sodium Potassium Chloride Carbon Dioxide Anion Gap BUN Creatinine Est GFR (CKD-EPI)AfAm Est GFR (CKD-EPI)NonAf POC Glucometer [phone] Random Glucose Calcium Total Bilirubin AST ALT Alkaline Phosphatase Total Protein Albumin Urine Color Urine Appearance Urine pH Ur Specific [place] Urine Protein Urine Glucose (UA) Urine Ketones Urine Blood Urine Nitrite Urine Bilirubin Urine Urobilinogen Ur Leukocyte Esterase RPR Titer aaox3 ambulating no acute distress Assessment: 10/31/19 09:59 withdrawals Plan: continue detox increase fluids
[2019-10-31] MEDS: PRENATAL VITAMINS W/ FOLIC ACID TABLET (FP) PO SCH (10:24)
[2019-10-31] MEDS: OMEGA-3 ACID ETHYL ESTERS (FATTY-ACIDS) 1 GM CAPSULE (FP) PO SCH ×2 (10:24→22:05)
[2019-10-31] MEDS: THIAMINE HCL 100 MG TABLET (FP) PO SCH (22:04)
[2019-11-01] MEDS ORDERED: chlordiazePOXIDE HCL 10 MG CAPSULE PO PRN
[2019-11-01] MEDS: CEPHALEXIN MONOHYDRATE 500 MG CAPSULE (UD) PO SCH ×2 (01:18→05:53)
[2019-11-01] MEDS: INSULIN SLIDING SCALE (NOVOLOG) 1 VIAL SQ SCH (06:30)
[2019-11-01] MEDS: chlordiazePOXIDE HCL 10 MG CAPSULE PO SCH ×3 (07:23→07:36)
[2019-11-01] MEDS: metFORMIN HCL 500 MG TABLET (FP) PO SCH (07:30)
[2019-11-01 09:22] VITALS: BP 116/81; PULSE 94; TEMP 98.2
--- NOTE | 2019-11-01 18:22 | DS ---
[facility] Detox Discharge Summary Admission Date: 10/29/19 Discharge Date: 11/01/19 - History Present History: Alcohol Dependence Additional Comments: SINCE PATIENT REPORTS THAT CURRENT WITHDRAWAL / DETOX SYMPTOMS ARE MINIMAL IN DEGREE AND THAT HE FEELS WELL OVERALL, AT PATIENTS REQUEST, HE WAS GRANTED AN EARLY DISCHARGE FROM DETOX UNIT TODAY SO THAT HE MAY RETURN HOME FOR TIME BEING TO ATTEND TO PERSONAL MATTERS UNTIL HE RETURNS TO [facility] ON 11/03/2019 TO APPLY FOR REHAB ADMISSION AT [facility]. PATIENT DECLINED OFFER OF MEDICATION PRESCRIPTION FOR HOME MEDICATION AT TIME OF DISCHARGE FROM DETOX, NOTING THAT HE CURRENTLY HAS ADEQUATE SUPPLIES OF ALL PRESCRIBED HOME MEDICATIONS AT HOME. PATIENT WAS DISCHARGED FROM DETOX UNIT IN STABLE MEDICAL CONDITION. Pertinent Past History: Nicotine Dependence, History of Syncope (Alcohol-Related), Insomnia, HTN, Type II DM, Hypercholesterolemia, Anxiety, Depression. - Physical Exam Results Vital Signs: Vital Signs Temperature 98.2 F 11/01/19 09:22 Pulse Rate 94 H 11/01/19 09:22 Respiratory Rate 18 11/01/19 09:22 Blood Pressure 116/81 11/01/19 09:22 O2 Sat by Pulse Oximetry (%) Pertinent Admission Physical Exam Findings: WITHDRAWAL SYMPTOMS. Laboratory Tests 10/29/19 10/29/19 10/29/19 11:12 16:32 21:55 WBC RBC Hgb Hct MCV MCH MCHC RDW Plt Count MPV Sodium Potassium Chloride Carbon Dioxide Anion Gap BUN Creatinine Est GFR (CKD-EPI)AfAm Est GFR (CKD-EPI)NonAf POC Glucometer 450 313 314 Random Glucose Calcium Total Bilirubin AST ALT Alkaline Phosphatase Total Protein Albumin Urine Color Urine Appearance Urine pH Ur Specific [place] Urine Protein Urine Glucose (UA) Urine Ketones Urine Blood Urine Nitrite Urine Bilirubin Urine Urobilinogen Ur Leukocyte Esterase RPR Titer 10/30/19 10/30/19 10/30/19 05:48 07:10 07:10 WBC 5.8 RBC 4.91 Hgb 14.9 Hct 43.5 MCV 88.6 MCH 30.4 MCHC 34.3 RDW 13.7 Plt Count 181 MPV 9.5 Sodium 136 Potassium 4.4 Chloride 104 Carbon Dioxide 26 Anion Gap 6 L BUN 13.6 Creatinine 0.8 Est GFR (CKD-EPI)AfAm 119.88 Est GFR (CKD-EPI)NonAf 103.43 POC Glucometer 448 Random Glucose 398 H Calcium 9.2 Total Bilirubin 0.3 AST 15 ALT 27 Alkaline Phosphatase 82 Total Protein 7.2 Albumin 3.8 Urine Color Urine Appearance Urine pH Ur Specific [place] Urine Protein Urine Glucose (UA) Urine Ketones Urine Blood Urine Nitrite Urine Bilirubin Urine Urobilinogen Ur Leukocyte Esterase RPR Titer 10/30/19 10/30/19 10/30/19 07:10 07:10 11:36 WBC RBC Hgb Hct MCV MCH MCHC RDW Plt Count MPV Sodium Potassium Chloride Carbon Dioxide Anion Gap BUN Creatinine Est GFR (CKD-EPI)AfAm Est GFR (CKD-EPI)NonAf POC Glucometer 341 Random Glucose Calcium Total Bilirubin AST ALT Alkaline Phosphatase Total Protein Albumin Urine Color Yellow Urine Appearance Clear Urine pH 5.0 Ur Specific [place] 1.038 H Urine Protein Negative Urine Glucose (UA) 3+ H Urine Ketones Trace H Urine Blood Negative Urine Nitrite Negative Urine Bilirubin Negative Urine Urobilinogen 0.2 Ur Leukocyte Esterase Negative RPR Titer Nonreactive 10/30/19 10/30/19 10/31/19 16:36 20:56 06:08 WBC RBC Hgb Hct MCV MCH MCHC RDW Plt Count MPV Sodium Potassium Chloride Carbon Dioxide Anion Gap BUN Creatinine Est GFR (CKD-EPI)AfAm Est GFR (CKD-EPI)NonAf POC Glucometer [phone] Random Glucose Calcium Total Bilirubin AST ALT Alkaline Phosphatase Total Protein Albumin Urine Color Urine Appearance Urine pH Ur Specific [place] Urine Protein Urine Glucose (UA) Urine Ketones Urine Blood Urine Nitrite Urine Bilirubin Urine Urobilinogen Ur Leukocyte Esterase RPR Titer 10/31/19 10/31/19 10/31/19 10:30 16:24 21:23 WBC RBC Hgb Hct MCV MCH MCHC RDW Plt Count MPV Sodium Potassium Chloride Carbon Dioxide Anion Gap BUN Creatinine Est GFR (CKD-EPI)AfAm Est GFR (CKD-EPI)NonAf POC Glucometer [phone] Random Glucose Calcium Total Bilirubin AST ALT Alkaline Phosphatase Total Protein Albumin Urine Color Urine Appearance Urine pH Ur Specific [place] Urine Protein Urine Glucose (UA) Urine Ketones Urine Blood Urine Nitrite Urine Bilirubin Urine Urobilinogen Ur Leukocyte Esterase RPR Titer 11/01/19 05:51 WBC RBC Hgb Hct MCV MCH MCHC RDW Plt Count MPV Sodium Potassium Chloride Carbon Dioxide Anion Gap BUN Creatinine Est GFR (CKD-EPI)AfAm Est GFR (CKD-EPI)NonAf POC Glucometer 322 Random Glucose Calcium Total Bilirubin AST ALT Alkaline Phosphatase Total Protein Albumin Urine Color Urine Appearance Urine pH Ur Specific [place] Urine Protein Urine Glucose (UA) Urine Ketones Urine Blood Urine Nitrite Urine Bilirubin Urine Urobilinogen Ur Leukocyte Esterase RPR Titer LABS NOTED. - Treatment Patient has Accepted a Rehab Referral to: PT WILL RETURN TO APPLY FOR ADMISSION [facility] ON 11/03/19 - Medication Discharge Medications: Ambulatory Orders Docusate Sodium [Stool Softener] 100 mg PO BID #60 capsule 04/14/19 [place]-3 Acid Ethyl Esters [Lovaza -] 1,000 mg PO BID #60 cap 04/14/19 Hydroxyzine HCl 50 mg PO BID PRN 09/24/19 Nifedipine [Procardia Xl] 60 mg PO DAILY #30 tab.er.24 10/01/19 Metformin HCl [Glucophage] 500 mg PO BID 10/29/19 - Diagnosis (1) Cannabis abuse Status: Acute (2) Nicotine dependence Status: Acute Qualifiers: Nicotine product type: cigarettes Substance use status: in withdrawal Qualified Code(s): F17.213 - Nicotine dependence, cigarettes, with withdrawal (3) Syncope Status: Acute Qualifiers: Syncope type: unspecified Qualified Code(s): R55 - Syncope and collapse (4) DM Diabetes mellitus type 2 Status: Chronic (5) Essential hypertension Status: Chronic (6) Hypercholesterolemia Status: Chronic (7) Alcohol dependence with uncomplicated withdrawal Status: Acute - AMA Did Patient Leave Against Medical Advice: No
[2019-11-02] MEDS ORDERED: chlordiazePOXIDE HCL 10 MG CAPSULE PO SCH (05:00)
[2019-11-03] MEDS ORDERED: chlordiazePOXIDE HCL 10 MG CAPSULE PO ONE (05:00)
== END 2019-11-01 09:55 | disposition home or self-care (01) | DRG 897 ==
LOC: YASAS 10:41 → Y6N 11:35
PROVIDERS: ADMIT Allergy & Immunology; ATTEND Allergy & Immunology
PROC: HZ2ZZZZ Detoxification Services for Substance Abuse Treatment (ICD-10-PCS; principal; 2019-10-29)
DX: F10.230 Alcohol dependence with withdrawal, uncomplicated (principal); F12.10 Cannabis abuse, uncomplicated; F17.213 Nicotine dependence, cigarettes, with withdrawal; I10 Essential (primary) hypertension; E78.5 Hyperlipidemia, unspecified; E11.9 Type 2 diabetes mellitus without complications; G47.00 Insomnia, unspecified; Z87.438 Personal history of other diseases of male genital organs; Z91.14 Patient's other noncompliance with medication regimen; Z88.8 Allergy status to other drugs, medicaments and biological substances; Z91.011 Allergy to milk products
CPT/HCPCS: 36415; 80053; 81003; 82962; 85027; 86593

== ENCOUNTER 2019-12-06 10:58 | Inpatient (IN) | payer MEDICARE, OTHER ==
[2019-12-06 12:50] VITALS: BMI 32.5
--- NOTE | 2019-12-06 13:01 | HP ---
CIWA Score Nausea/Vomitin Muscle Tremors: 2 Anxiety: 2 Agitation: 1-Slight > Activity Paroxysmal Sweats: 2 Orientation: 0-Oriented Tacttile Disturbances: 0-None Auditory Disturbances: 0-None Visual Disturbances: 0-None Headache: 0-None Present CIWA-Ar Total Score: 10 - Admission Criteria OASAS Guidelines: Admission for Medically Managed Detox: Requires at least one of the followin. CIWA greater than 12 2. Seizures within the past 24 hours 3. Delirium tremens within the past 24 hours 4. Hallucinations within the past 24 hours 5. Acute intervention needed for co occurring medical disorder 6. Acute intervention needed for co occurring psychiatric disorder 7. Severe withdrawal that cannot be handled at a lower level of care (continued vomiting, continued diarrhea, abnormal vital signs) requiring intravenous medication and/or fluids 8. 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 Cardiovascular: Yes: HTN, Hyperlipdemia Psych: Yes: Anxiety, Other (insomnia) Endocrine: Yes: Diabetes Mellitus, Other - Past Surgical History Past Surgical History: Yes: None - Smoking History Smoking history: Former smoker Have you smoked in the past 12 months: Yes Aproximately how many cigarettes per day: 3 If you are a former smoker, when did you quit?: 04/23 - Alcohol/Substance Use Hx Alcohol Use: Yes History of Substance Use: reports: Marijuana - Social History Occupation: on disability History of Recent Travel: No Admission ROS BHS - HPI Allergies/Adverse Reactions: Allergies Allergy/AdvReac Type Severity Reaction Status Date / Time lactose AdvReac Severe diarrhea Verified 12/06/19 12:41 melatonin AdvReac Intermediate depressed Verified 12/06/19 12:41 trazodone AdvReac Intermediate depression Verified 12/06/19 12:41 History of Present Illness: 54 y.o. male requesting detox from etoh use , reports 2 x 6-pk/day , latest use this morning . Denies seizures , blackouts, tremors . cannabis use - 1 x/ month PMHX ; HTN , DM2 since 2002 , anxiety PShx : denies PSych : denies SI / HI tobacco ; denies , quit 1 yr ago Exam Limitations: No Limitations - Review of Systems Constitutional: No Symptoms Reported EENT: reports: No Symptoms Reported Respiratory: reports: No Symptoms reported Cardiac: reports: No Symptoms Reported GI: reports: See HPI, Nausea, Vomiting : reports: No Symptoms Reported Musculoskeletal: reports: No Symptoms Reported Integumentary: reports: No Symptoms Reported Neuro: reports: See HPI Endocrine: reports: See HPI Psychiatric: reports: Orientated x3, Anxious Patient History - Patient Medical History Hx Anemia: No Hx Asthma: No Hx Chronic Obstructive Pulmonary Disease (COPD): No Hx Cancer: No Hx Cardiac Disorders: No Hx Congestive Heart Failure: No Hx Hypertension: Yes (non compliance) Hx Hypercholesterolemia: Yes (non compliance) Hx Pacemaker: No HX Cerebrovascular Accident: No Hx Seizures: No Hx Dementia: No Hx Diabetes: Yes (type 2 dm) Hx Gastrointestinal Disorders: No Hx Liver Disease: No Hx Genitourinary Disorders: No Hx Sexually Transmitted Disorders: Yes (syphilis at age 38, completed tx.) Hx Renal Disease (ESRD): No Hx Thyroid Disease: No Hx Human Immunodeficiency Virus (HIV): No (NEGATIVE HX last 12/24) Hx Hepatitis C: No Hx Depression: Yes (anxiety,insomnia) Hx Suicide Attempt: No Hx Bipolar Disorder: No Hx Schizophrenia: No - Patient Surgical History Past Surgical History: No Hx Neurologic Surgery: No Hx Cataract Extraction: No Hx Cardiac Surgery: No Hx Lung Surgery: No Hx Breast Surgery: No Hx Breast Biopsy: No Hx Abdominal Surgery: No Hx Appendectomy: No Hx Cholecystectomy: No Hx Genitourinary Surgery: No Hx Section: No Hx Orthopedic Surgery: No Hx Hysterectomy: No Anesthesia Reaction: No - PPD History Date: 11/07/18 Results: 0 mm - Smoking Cessation Smoking history: Former smoker Have you smoked in the past 12 months: Yes Aproximately how many cigarettes per day: 3 If you are a former smoker, when did you quit?: 04/23 Cigars Per Day: 0 Hx Chewing Tobacco Use: No Initiated information on smoking cessation: No - Substances abused Alcohol Substance route: Oral Frequency: Daily Amount used: 12 CANS OF BEER Age of first use: 32 Date of last use: 12/06/19 Admission Physical Exam BHS - Vital Signs Vital Signs: Vital Signs - 24 hr 12/06/19 12:47 Temperature 97.2 F L Pulse Rate 81 Respiratory 20 Rate Blood Pressure 149/91 - Physical General Appearance: Yes: Mild Distress HEENTM: Yes: EOMI, Hearing grossly Normal, Normocephalic, Normal Voice Respiratory: Yes: Chest Non-Tender, Lungs Clear, Normal Breath Sounds, No Respiratory Distress, No Accessory Muscle Use Neck: Yes: No masses,lesions,Nodules, Trachea in good position Cardiology: Yes: Regular Rhythm, Regular Rate, S1, S2 Abdominal: Yes: Non Tender, Soft, Protuberent Musculoskeletal: Yes: Gait Steady Extremities: Yes: Normal Range of Motion, Non-Tender 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: Yes: Fully Oriented, Alert, Motor Strength 5/5, Normal Mood/Affect Integumentary: Yes: Warm - Diagnostic (1) Alcohol dependence with uncomplicated withdrawal Current Visit: Yes Status: Chronic (2) Cannabis abuse Current Visit: Yes Status: Chronic Breathalyzer - Breathalyzer Breathalyzer: 0 Urine Drug Screen - Test Device Lot number: [id number] Expiration date: 06/04/21 - Control Is test valid?: Yes - Results Drug screen NEGATIVE: No Urine drug screen results: THC-Marijuana, BZO-Benzodiazepines Inpatient Rehab Admission - Rehab Decision to Admit Inpatient rehab admission?: No
[2019-12-06] MEDS ORDERED: chlordiazePOXIDE HCL 10 MG CAPSULE PO PRN (13:11)
[2019-12-06] MEDS ORDERED: hydrOXYzine PAMOATE 25 MG CAPSULE (FP) PO PRN (13:19)
[2019-12-06] MEDS ORDERED: MENTHOL/PHENOL 1 EACH UD MM PRN (13:19)
[2019-12-06] MEDS ORDERED: BISMUTH SUBSALICYLATE 524 MG/30 ML UD PO PRN (13:19)
[2019-12-06] MEDS ORDERED: MAG HYDROX/AL HYDROX/SIMETH 30 ML UNIT-DOSE CUP PO PRN (13:19)
[2019-12-06] MEDS ORDERED: IBUPROFEN 400 MG TABLET (FP) PO PRN (13:19)
[2019-12-06] MEDS ORDERED: MAGNESIUM CITRATE 300 ML BOTTLE PO PRN (13:19)
[2019-12-06] MEDS ORDERED: MAGNESIUM HYDROX 2400MG/30ML ORAL SUSPENSION 30 ML CUP PO PRN (13:19)
[2019-12-06] MEDS ORDERED: ACETAMINOPHEN 325 MG TABLET (FP) PO PRN ×2 (13:19)
[2019-12-06] MEDS: metFORMIN HCL 500 MG TABLET (FP) PO SCH ×2 (14:28→21:53)
[2019-12-06] MEDS: chlordiazePOXIDE HCL 25 MG CAPSULE PO SCH ×2 (14:29→21:53)
[2019-12-06] MEDS: NIFEdipine E.R. 30 MG TABLET PO SCH (14:29)
[2019-12-06] MEDS: INSULIN SLIDING SCALE (NOVOLOG) 1 VIAL SQ SCH (17:25)
[2019-12-06] MEDS: THIAMINE HCL 100 MG TABLET (FP) PO SCH (21:54)
[2019-12-07] MEDS: chlordiazePOXIDE HCL 25 MG CAPSULE PO SCH ×3 (05:30→22:14)
[2019-12-07] MEDS: INSULIN SLIDING SCALE (NOVOLOG) 1 VIAL SQ SCH ×2 (06:41→16:48)
[2019-12-07] MEDS ORDERED: INSULIN SLIDING SCALE (NOVOLOG) 1 VIAL SQ ONE (06:43)
[2019-12-07] MEDS ORDERED: PRENATAL VITAMINS W/ FOLIC ACID TABLET (FP) PO SCH (10:00)
[2019-12-07] MEDS: NIFEdipine E.R. 30 MG TABLET PO SCH (10:03)
[2019-12-07] MEDS: metFORMIN HCL 500 MG TABLET (FP) PO SCH ×2 (10:03→22:13)
--- NOTE | 2019-12-07 11:27 | PN ---
S CIWA - CIWA Score Nausea/Vomitin-Mild Nausea/No Vomiting Muscle Tremors: 3 Anxiety: 3 Agitation: 1-Slight > Activity Paroxysmal Sweats: 2 Orientation: 0-Oriented Tacttile Disturbances: 0-None Auditory Disturbances: 1-Very Mild Visual Disturbances: 0-None Headache: 1-Very Mild CIWA-Ar Total Score: 12 BHS Progress Note (SOAP) Subjective: 54 years old male admitted on 12/06/19 for alcohol withdrawal sx management treating with librium detox regiment doing ok but tremor and anxiety encourage to attend behavior and psychosocial therapies while in detox talking about after plan with staff Objective: 12/07/19 11:29 Vital Signs Temperature 97.1 F L 12/07/19 08:45 Pulse Rate 89 12/07/19 08:45 Respiratory Rate 18 12/07/19 08:45 Blood Pressure 131/80 12/07/19 08:45 O2 Sat by Pulse Oximetry (%) Laboratory Last Values POC Glucometer 341 UNITS (80-120) 12/07/19 05:29 12/07/19 11:29 lab pending Assessment: 12/07/19 11:29 alcohol withdrawal Plan: librium regiment
[2019-12-07 12:12] LABS: HEMATOCRIT 44.1 % (35.4-49); HEMOGLOBIN 15.4 GM/dL (11.7-16.9); MCH 30.7 pg (25.7-33.7); MCHC 34.8 g/dl (32.0-35.9); MEAN CELL VOLUME 88.1 fl (80-96); MEAN PLT VOLUME 9.9 fl (7.5-11.1); PLATELET COUNT 196 K/MM3 (134-434); RBC 5.01 M/mm3 (4.00-5.60); RDW 13.7 % (11.9-15.9); WHITE BLOOD COUNT 5.6 K/mm3 (4.0-10.0)
[2019-12-07 12:15] LABS: BILIRUBIN,TOTAL 0.4 mg/dL (0.2-1); BLOOD UREA NITROGEN 6.7 mg/dL (7-18); CALCIUM 9.1 mg/dL (8.5-10.1); CREATININE 0.7 mg/dL (0.55-1.3); TOT PROT 7.2 g/dl (6.4-8.2)
--- NOTE | 2019-12-07 14:57 | CONSULT ---
[facility] Psychiatric Consult - Data Date of interview: 12/07/19 Admission source: [facility] Identifying data: Patient is a 54 year old single male, without children , unemployed, domiciled, and is supported by [facility]. This is one of multiple admissions for patient. Patient admitted to for alcohol dependence. Substance Abuse History: Smoking Cessation. Smoking history: Former smoker. Have you smoked in the past 12 months: Yes. Aproximately how many cigarettes per day: 3. If you are a former smoker, when did you quit?: 04/23. Cigars Per Day: 0. Hx Chewing Tobacco Use: No. Initiated information on smoking cessation : No. - Substances abused. Alcohol. Substance route: Oral. Frequency: Daily. Amount used: 12 CANS OF BEER. Age of first use: 32. Date of last use: 12/06/19 Medical History: Significant for hypertension, dyslipidemia and diabetes mellitus and history of gonorrhea. 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 History remains consistent. Patient's first psychiatric contact was in the s while living in [facility]. He reports seeing a psychiatrist due to his behavioral problems and reports being prescribed tegretol. Then in 1988 while in [facility] he reports being prescribed risperdal + Seroquel because of his emotional outburst. States that alot of his emotional outburst were due to being raised in a dysfunctional family. Patient most recently received outpatient psychiatric care at [facility] outpatient clinic approximately 7-8 months ago and reports being prescribed vistaril 50mg prn due to his anxiety disorder. He discontinued treatment after he was assigned a new psychiatrist who refused to prescribe him vistaril. At present patient reports stable mood. Patient denies h/o auditory/visual hallucinations. No psychosis noted. Patient denies h/o suicide attempt Physical/Sexual Abuse/Trauma History: denies. Mental Status Exam - Mental Status Exam Alert and Oriented to: Time, Place, Person Cognitive Function: Good Patient Appearance: Well Groomed Mood: Euthymic Affect: Appropriate Patient Behavior: Appropriate, Cooperative Speech Pattern: Clear, Appropriate Voice Loudness: Normal Thought Process: Intact, Goal Oriented Thought Disorder: Not Present Hallucinations: Denies Suicidal Ideation: Denies Homicidal Ideation: Denies Insight/Judgement: Poor Sleep: Fair Appetite: Fair Muscle strength/Tone: Normal Gait/Station: Normal Psychiatric Findings - Problem List ([place] 1, 2,3) (1) Alcohol dependence with uncomplicated withdrawal Current Visit: Yes Status: Acute (2) Substance-induced sleep disorder Current Visit: Yes Status: Acute (3) Cannabis dependence Current Visit: Yes Status: Chronic - Initial Treatment Plan Initial Treatment Plan: Psychoeducation provided. Detoxification in progress. Will order Vistaril 50mg q4h. Benefits and side effects discussed. Verbal consent given.
[2019-12-07] MEDS ORDERED: hydrOXYzine PAMOATE 25 MG CAPSULE (FP) PO PRN (15:02)
[2019-12-07] MEDS: THIAMINE HCL 100 MG TABLET (FP) PO SCH (22:13)
[2019-12-08] MEDS ORDERED: chlordiazePOXIDE HCL 10 MG CAPSULE PO SCH (05:00)
[2019-12-08] MEDS: INSULIN SLIDING SCALE (NOVOLOG) 1 VIAL SQ SCH (07:42)
[2019-12-08 09:04] VITALS: BP 132/84; PULSE 103; TEMP 96.6
--- NOTE | 2019-12-08 12:37 | DS ---
[facility] Detox Discharge Summary Admission Date: 12/06/19 Discharge Date: 12/08/19 - History Present History: Alcohol Dependence Additional Comments: 54 years old male admitted on 12/06/19 for alcohol withdrawal sx management treated with librium detox regiment patient prefers to leave the detox one day early as per estimated discharge day of 12/09/19 that he had an appointment with his primary care provider today to get his medications for diabe patient is alert oriented c 3 steady gait case discussed with the nurse routine discharge is appropriated respiratory clear lungs bilaterally on auscultation abdomen soft round obese no rebound tenderness skin warm and dry - Physical Exam Results Vital Signs: Vital Signs Temperature 96.6 F L 12/08/19 08:50 Pulse Rate 103 H 12/08/19 08:50 Respiratory Rate 18 12/08/19 08:50 Blood Pressure 132/84 12/08/19 08:50 O2 Sat by Pulse Oximetry (%) Pertinent Admission Physical Exam Findings: alcohol withdrawal Laboratory Last Values WBC 5.6 K/mm3 (4.0-10.0) 12/07/19 07:20 RBC 5.01 M/mm3 (4.00-5.60) 12/07/19 07:20 Hgb 15.4 GM/dL (11.7-16.9) 12/07/19 07:20 Hct 44.1 % (35.4-49) 12/07/19 07:20 MCV 88.1 fl (80-96) 12/07/19 07:20 MCH 30.7 pg (25.7-33.7) 12/07/19 07:20 MCHC 34.8 g/dl (32.0-35.9) 12/07/19 07:20 RDW 13.7 % (11.9-15.9) 12/07/19 07:20 Plt Count 196 K/MM3 (134-434) 12/07/19 07:20 MPV 9.9 fl (7.5-11.1) 12/07/19 07:20 Sodium 138 mmol/L (136-145) 12/07/19 07:20 Potassium 4.0 mmol/L (3.5-5.1) 12/07/19 07:20 Chloride 103 mmol/L (98-107) 12/07/19 07:20 Carbon Dioxide 28 mmol/L (21-32) 12/07/19 07:20 Anion Gap 7 MMOL/L (8-16) L 12/07/19 07:20 BUN 6.7 mg/dL (7-18) L 12/07/19 07:20 Creatinine 0.7 mg/dL (0.55-1.3) 12/07/19 07:20 Est GFR (CKD-EPI)AfAm 125.75 12/07/19 07:20 Est GFR (CKD-EPI)NonAf 108.50 12/07/19 07:20 POC Glucometer 430 UNITS (80-120) 12/08/19 06:03 Random Glucose 311 mg/dL (74-106) H 12/07/19 07:20 Calcium 9.1 mg/dL (8.5-10.1) 12/07/19 07:20 Total Bilirubin 0.4 mg/dL (0.2-1) 12/07/19 07:20 AST 14 U/L (15-37) L 12/07/19 07:20 ALT 26 U/L (13-61) 12/07/19 07:20 Alkaline Phosphatase 83 U/L (45-117) 12/07/19 07:20 Total Protein 7.2 g/dl (6.4-8.2) 12/07/19 07:20 Albumin 4.0 g/dl (3.4-5.0) 12/07/19 07:20 RPR Titer Nonreactive (NONREACTIVE) 12/07/19 07:20 lab noted long history of diabetes encourage weight loss health teaching on risks of none adherence on antidiabetic medication - Treatment Hospital Course: Detox Protocol Followed, Detoxed Safely, Responded well, Discharged Condition Good, Rehab Referral Accepted Patient has Accepted a Rehab Referral to: [facility] - Medication Discharge Medications: Ambulatory Orders Docusate Sodium [Stool Softener] 100 mg PO BID #60 capsule 04/14/19 [place]-3 Acid Ethyl Esters [Lovaza -] 1,000 mg PO BID #60 cap 04/14/19 Hydroxyzine HCl 50 mg PO BID PRN 09/24/19 Nifedipine [Procardia Xl] 60 mg PO DAILY #30 tab.er.24 10/01/19 Metformin HCl [Glucophage] 500 mg PO BID 10/29/19 - Diagnosis (1) Obesity (BMI 30.0-34.9) Status: Chronic (2) Substance induced mood disorder Status: Suspected (3) DM Diabetes mellitus type 2 Status: Chronic (4) Essential hypertension Status: Chronic (5) Hypercholesterolemia Status: Chronic (6) Nicotine dependence Status: Acute Qualifiers: Nicotine product type: cigarettes Substance use status: in withdrawal Qualified Code(s): F17.213 - Nicotine dependence, cigarettes, with withdrawal (7) Alcohol dependence with uncomplicated withdrawal Status: Acute - AMA Did Patient Leave Against Medical Advice: No CIWA Score - CIWA Score Nausea/Vomitin-No Nausea/No Vomiting Muscle Tremors: 2 Anxiety: 2 Agitation: 0-Normal Activity Paroxysmal Sweats: 1-Minimal Palms Moist Orientation: 0-Oriented Tacttile Disturbances: 0-None Auditory Disturbances: 1-Very Mild Visual Disturbances: 0-None Headache: 1-Very Mild CIWA-Ar Total Score: 7
[2019-12-09] MEDS ORDERED: chlordiazePOXIDE HCL 10 MG CAPSULE PO ONE (05:00)
== END 2019-12-08 09:37 | disposition home or self-care (01) | DRG 897 ==
LOC: YASAS 10:58 → Y3N 13:49
PROVIDERS: ADMIT Allergy & Immunology; ATTEND Allergy & Immunology
PROC: HZ2ZZZZ Detoxification Services for Substance Abuse Treatment (ICD-10-PCS; principal; 2019-12-06)
DX: F10.230 Alcohol dependence with withdrawal, uncomplicated (principal); F19.282 Other psychoactive substance dependence with psychoactive substance-induced sleep disorder; F12.20 Cannabis dependence, uncomplicated; F17.213 Nicotine dependence, cigarettes, with withdrawal; F19.24 Other psychoactive substance dependence with psychoactive substance-induced mood disorder; F41.9 Anxiety disorder, unspecified; I10 Essential (primary) hypertension; E78.00 Pure hypercholesterolemia, unspecified; E11.9 Type 2 diabetes mellitus without complications; Z79.84 Long term (current) use of oral hypoglycemic drugs; E66.9 Obesity, unspecified; Z68.32 Body mass index [BMI] 32.0-32.9, adult; Z86.19 Personal history of other infectious and parasitic diseases; Z88.8 Allergy status to other drugs, medicaments and biological substances; E73.9 Lactose intolerance, unspecified
CPT/HCPCS: 36415; 80053; 82962; 85027; 86593

== ENCOUNTER 2020-06-09 08:22 | Inpatient (IN) | payer MEDICARE, OTHER ==
--- NOTE | 2020-06-09 08:51 | BHS.RME ---
Substance Use & Tx History - Substance Use History Alcohol Substance amount: 15 -16 oz beers Frequency of use: Daily Substance route: Oral Date of Last Use: 06/09/20 (3am) Nicotine Substance amount: 6 ciggs Frequency of use: Daily Substance route: Smoking Date of Last Use: 06/09/20 Physical/Psych/Mental Status - Behavior General Behavior: Increased activity (restlessness, agitation) Eye Contact: Normal - Cooperativeness Cooperativeness: Cooperative - Thinking Thought Processes: Tight, Logical, Goal Directed - Physical Health Problems Is patient presently having any pain?: No Does patient presently have any injuries (include location): No Does patient currently have a fever: No Is patient : No CIWA Nausea/Vomitin-Mild Nausea/No Vomiting Muscle Tremors: 4-Moderate,w/Arms Extend Anxiety: 4-Mod. Anxious/Guarded Agitation: 3 Paroxysmal Sweats: 4-Forehead w/Sweat Beads Orientation: 0-Oriented Tacttile Disturbances: 0-None Auditory Disturbances: 0-None Visual Disturbances: 0-None Headache: 2-Mild CIWA-Ar Total Score: 18
--- NOTE | 2020-06-09 09:21 | HP ---
CIWA Score Nausea/Vomitin-Mild Nausea/No Vomiting Muscle Tremors: 4-Moderate,w/Arms Extend Anxiety: 4-Mod. Anxious/Guarded Agitation: 3 Paroxysmal Sweats: 4-Forehead w/Sweat Beads Orientation: 0-Oriented Tacttile Disturbances: 0-None Auditory Disturbances: 0-None Visual Disturbances: 0-None Headache: 2-Mild CIWA-Ar Total Score: 18 - Admission Criteria OASAS Guidelines: Admission for Medically Managed Detox: Requires at least one of the followin. CIWA greater than 12 2. Seizures within the past 24 hours 3. Delirium tremens within the past 24 hours 4. Hallucinations within the past 24 hours 5. Acute intervention needed for co occurring medical disorder 6. Acute intervention needed for co occurring psychiatric disorder 7. Severe withdrawal that cannot be handled at a lower level of care (continued vomiting, continued diarrhea, abnormal vital signs) requiring intravenous medication and/or fluids 8. Admitting History and Physical - Admission Chief Complaint: Mr. Carrasco is a 54 yo man who presents to [facility] requesting detox from alcohol. History of Present Illness: Mr. Carrasco is a 54 yo man who presents to [facility] requesting detox from alcohol. He was last here between January 31 and 2019. He was then referred to Rehab at [facility]. However, due to insurance problems he did not attend and soon thereafter relapsed. 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 Nicotine Substance amount: 6 ciggs Frequency of use: Daily Substance route: Smoking Date of Last Use: 06/09/20 First use age 24 y History Source: Patient Limitations to Obtaining History: No Limitations - 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 Cardiovascular: Yes: HTN, Hyperlipdemia Psych: Yes: Anxiety, Other (insomnia) Endocrine: Yes: Diabetes Mellitus, Other - Past Surgical History Past Surgical History: Yes: None - Smoking History Smoking history: Former smoker Have you smoked in the past 12 months: Yes Aproximately how many cigarettes per day: 3 If you are a former smoker, when did you quit?: 04/23 - Alcohol/Substance Use Hx Alcohol Use: Yes History of Substance Use: reports: Marijuana - Social History ADL: Support Services Occupation: on disability History of Recent Travel: No Admission ROS BHS - HPI Allergies/Adverse Reactions: Allergies Allergy/AdvReac Type Severity Reaction Status Date / Time lactose AdvReac Severe diarrhea Verified 06/09/20 08:58 lorazepam [From Ativan] AdvReac Intermediate depression Verified 06/09/20 08:58 melatonin AdvReac Intermediate depressed Verified 06/09/20 08:58 trazodone AdvReac Intermediate depression Verified 06/09/20 08:58 Exam Limitations: No Limitations - Ebola screening Have you traveled outside of the country in the last 21 days: No Have you been sick,other than usual withdrawal symptoms: No Do you have a fever: No - Review of Systems Constitutional: Unintentional Wgt. Loss (6 lbs lost in 3 mos) EENT: reports: Blurred Vision (no glasses) Respiratory: reports: No Symptoms reported Cardiac: reports: No Symptoms Reported GI: reports: Nausea : reports: No Symptoms Reported Musculoskeletal: reports: No Symptoms Reported Integumentary: reports: Other (rash bilateral forearm, left >right, has been treated with a cream, seen in ED in [place]) Endocrine: reports: No Symptoms Reported, Other (admits to eating high fat and high carb foods recently) Hematology: reports: No Symptoms Reported Psychiatric: reports: Anxious Patient History - Patient Medical History Hx Anemia: No Hx Asthma: No Hx Chronic Obstructive Pulmonary Disease (COPD): No Hx Cancer: No Hx Cardiac Disorders: No Hx Congestive Heart Failure: No Hx Hypertension: Yes (non compliance) Hx Hypercholesterolemia: Yes (non compliance) Hx Pacemaker: No HX Cerebrovascular Accident: No Hx Seizures: No Hx Dementia: No Hx Diabetes: Yes (type 2 dm) Hx Gastrointestinal Disorders: No Hx Liver Disease: No Hx Genitourinary Disorders: No Hx Sexually Transmitted Disorders: Yes (syphilis at age 38, completed tx.) Hx Renal Disease (ESRD): No Hx Thyroid Disease: No Hx Human Immunodeficiency Virus (HIV): No (LAST 12/25 ) Hx Hepatitis C: No Hx Depression: Yes (anxiety,insomnia) Hx Suicide Attempt: No Hx Bipolar Disorder: No Hx Schizophrenia: No - Patient Surgical History Past Surgical History: No Hx Neurologic Surgery: No Hx Cataract Extraction: No Hx Cardiac Surgery: No Hx Lung Surgery: No Hx Breast Surgery: No Hx Breast Biopsy: No Hx Abdominal Surgery: No Hx Appendectomy: No Hx Cholecystectomy: No Hx Genitourinary Surgery: No Hx Section: No Hx Orthopedic Surgery: No Hx Hysterectomy: No Anesthesia Reaction: No - PPD History Date: 02/02/20 Results: 0 mm - Smoking Cessation Smoking history: Former smoker Have you smoked in the past 12 months: Yes Aproximately how many cigarettes per day: 6 If you are a former smoker, when did you quit?: 04/23 Cigars Per Day: 0 Hx Chewing Tobacco Use: No Initiated information on smoking cessation: Yes 'Breaking Loose' booklet given: 06/09/20 Admission Physical Exam [facility] - Physical General Appearance: Yes: No Apparent Distress, Nourished, Appropriately Dressed HEENTM: Yes: EOMI, Hearing grossly Normal, Normocephalic, Normal Voice Respiratory: Yes: Lungs Clear, Normal Breath Sounds, No Respiratory Distress, No Accessory Muscle Use Neck: Yes: Within Normal Limits, Supple Breast: Yes: Breast Exam Deferred Cardiology: Yes: Regular Rhythm, Regular Rate, S1, S2 Abdominal: Yes: Normal Bowel Sounds, Non Tender, Flat, Soft Genitourinary: Yes: Other (deferred) Back: Yes: Normal Inspection Musculoskeletal: Yes: Gait Steady Extremities: Yes: Normal Inspection, Non-Tender 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: Yes: Alert, Normal Response Integumentary: Yes: Normal Color, Dry, Warm, Rash (bilateral forearm, right arm, well healed circular lesions.) - Diagnostic (1) Alcohol dependence with uncomplicated withdrawal Current Visit: Yes Status: Acute (2) Nicotine dependence Current Visit: Yes Status: Acute Qualifiers: Nicotine product type: cigarettes Substance use status: in withdrawal Qualified Code(s): F17.213 - Nicotine dependence, cigarettes, with withdrawal (3) DM Diabetes mellitus type 2 Current Visit: Yes Status: Chronic Comment: bgm = (4) Essential hypertension Current Visit: Yes Status: Chronic (5) Hypercholesterolemia Current Visit: No Status: Chronic Cleared for Admission S - Detox or Rehab [facility] Level of Care: Medically Managed Detox Regimen/Protocol: Librium Breathalyzer - Breathalyzer Breathalyzer: 0 Urine Drug Screen - Test Device Lot number: [id number] Expiration date: 06/04/21 - Control Is test valid?: Yes - Results Drug screen NEGATIVE: No Urine drug screen results: THC-Marijuana, BZO-Benzodiazepines Inpatient Rehab Admission - Rehab Decision to Admit Inpatient rehab admission?: No
[2020-06-09] MEDS ORDERED: ACETAMINOPHEN 325 MG TABLET (FP) PO PRN ×2 (09:24)
[2020-06-09] MEDS ORDERED: chlordiazePOXIDE HCL 25 MG CAPSULE PO PRN (09:24)
[2020-06-09] MEDS ORDERED: MAG HYDROX/AL HYDROX/SIMETH 30 ML UNIT-DOSE CUP PO PRN (09:24)
[2020-06-09] MEDS ORDERED: MAGNESIUM CITRATE 300 ML BOTTLE PO PRN (09:24)
[2020-06-09] MEDS ORDERED: METHOCARBAMOL 500 MG TABLET PO PRN (09:24)
[2020-06-09] MEDS ORDERED: MENTHOL/PHENOL 1 EACH UD MM PRN (09:24)
[2020-06-09] MEDS ORDERED: NICOTINE POLACRILEX 2 MG GUM BUC PRN (09:24)
[2020-06-09] MEDS ORDERED: IBUPROFEN 400 MG TABLET (FP) PO PRN (09:24)
[2020-06-09] MEDS ORDERED: MAGNESIUM HYDROX 2400MG/30ML ORAL SUSPENSION 30 ML CUP PO PRN (09:24)
[2020-06-09] MEDS ORDERED: BISMUTH SUBSALICYLATE 524 MG/30 ML UD PO PRN (09:24)
[2020-06-09] MEDS ORDERED: ONDANSETRON *ODT* 4 MG TABLET SL PRN (09:24)
[2020-06-09 09:31] VITALS: BMI 29.1
[2020-06-09] MEDS ORDERED: INSULIN SLIDING SCALE (NOVOLOG) 1 VIAL SQ ONE ×4 (09:42→23:12)
[2020-06-09] MEDS ORDERED: INSULIN (NOVOLOG) ASPART 100 UNITS/ML 10ML VIAL ONE (09:54)
[2020-06-09] MEDS ORDERED: hydrOXYzine PAMOATE 25 MG CAPSULE (FP) PO SCH (10:00)
[2020-06-09] MEDS: PRENATAL VITAMINS W/ FOLIC ACID TABLET (FP) PO SCH (10:47)
[2020-06-09] MEDS: NICOTINE 7 MG/24 HOURS TOPICAL PATCH TD SCH (10:47)
[2020-06-09] MEDS: chlordiazePOXIDE HCL 25 MG CAPSULE PO SCH ×3 (10:47→22:07)
[2020-06-09] MEDS: NIFEdipine E.R 60 MG TABLET PO SCH (10:47)
[2020-06-09] MEDS ORDERED: hydrOXYzine PAMOATE 25 MG CAPSULE (FP) PO PRN (11:24)
[2020-06-09] MEDS: INSULIN SLIDING SCALE (NOVOLOG) 1 VIAL SQ SCH ×3 (11:49→22:07)
[2020-06-09] MEDS: ROSUVASTATIN CA 20 MG TABLET (FP) PO SCH (14:27)
[2020-06-09] MEDS: VITAMINS A AND D TOPICAL OINTMENT 60 GM TUBE TP SCH (14:48)
[2020-06-09 15:01] LABS: HEMATOCRIT 39.4 % (35.4-49); HEMOGLOBIN 13.6 GM/dL (11.7-16.9); MCHC 34.6 g/dl (32.0-35.9); MEAN CELL VOLUME 89.6 fl (80-96); MEAN PLT VOLUME 10.4 fl (7.5-11.1); PLATELET COUNT 146 K/MM3 (134-434); RBC 4.39 M/mm3 (4.00-5.60); RDW 14.5 % (11.9-15.9); WHITE BLOOD COUNT 5.5 K/mm3 (4.0-10.0)
[2020-06-09 15:10] LABS: ALBUMIN 3.7 g/dl (3.4-5.0); BILIRUBIN,TOTAL 0.6 mg/dL (0.2-1); BLOOD UREA NITROGEN 11.5 mg/dL (7-18); CALCIUM 8.6 mg/dL (8.5-10.1); CREATININE 0.8 mg/dL (0.55-1.3); POTASSIUM 4.1 mmol/L (3.5-5.1); TOT PROT 6.8 g/dl (6.4-8.2)
[2020-06-09] MEDS: MELATONIN 5 MG TABLETS PO SCH (22:07)
[2020-06-09] MEDS: THIAMINE HCL 100 MG TABLET (FP) PO SCH (22:07)
[2020-06-10] MEDS: chlordiazePOXIDE HCL 25 MG CAPSULE PO SCH ×4 (06:14→22:14)
[2020-06-10] MEDS: VITAMINS A AND D TOPICAL OINTMENT 60 GM TUBE TP SCH ×2 (06:15→11:55)
[2020-06-10] MEDS: INSULIN SLIDING SCALE (NOVOLOG) 1 VIAL SQ SCH ×4 (06:49→22:12)
[2020-06-10] MEDS ORDERED: INSULIN SLIDING SCALE (NOVOLOG) 1 VIAL SQ ONE ×4 (06:50→23:03)
[2020-06-10] MEDS: NIFEdipine E.R 60 MG TABLET PO SCH (10:22)
[2020-06-10] MEDS: NICOTINE 7 MG/24 HOURS TOPICAL PATCH TD SCH (10:22)
[2020-06-10] MEDS: ROSUVASTATIN CA 20 MG TABLET (FP) PO SCH (10:22)
[2020-06-10] MEDS: PRENATAL VITAMINS W/ FOLIC ACID TABLET (FP) PO SCH (10:22)
--- NOTE | 2020-06-10 11:53 | PN ---
[facility] CIWA - CIWA Score Nausea/Vomitin-No Nausea/No Vomiting Muscle Tremors: 3 Anxiety: 2 Agitation: 3 Paroxysmal Sweats: 3 Orientation: 0-Oriented Tacttile Disturbances: 0-None Auditory Disturbances: 0-None Visual Disturbances: 0-None Headache: 0-None Present CIWA-Ar Total Score: 11 S Progress Note (SOAP) Subjective: sweats shakes chills restless interrupted sleep Objective: 06/10/20 11:52 Vital Signs Temperature 97.1 F L 06/10/20 05:55 Pulse Rate 70 06/10/20 05:55 Respiratory Rate 16 06/10/20 05:55 Blood Pressure 109/66 06/10/20 05:55 O2 Sat by Pulse Oximetry (%) 96 06/10/20 05:55 Laboratory Tests 06/09/20 06/09/20 06/09/20 09:29 10:00 10:00 WBC 5.5 RBC 4.39 Hgb 13.6 Hct 39.4 MCV 89.6 MCH 31.0 MCHC 34.6 RDW 14.5 Plt Count 146 D MPV 10.4 Sodium Potassium Chloride Carbon Dioxide Anion Gap BUN Creatinine Est GFR (CKD-EPI)AfAm Est GFR (CKD-EPI)NonAf POC Glucometer 442 Random Glucose Calcium Total Bilirubin AST ALT Alkaline Phosphatase Total Protein Albumin Syphilis Serology COVID-19 ([facility]) HIV Ag/Ab Combo Qual Negative 06/09/20 06/09/20 06/09/20 10:00 10:00 10:00 WBC RBC Hgb Hct MCV MCH MCHC RDW Plt Count MPV Sodium 138 Potassium 4.1 Chloride 103 Carbon Dioxide 29 Anion Gap 6 L BUN 11.5 Creatinine 0.8 Est GFR (CKD-EPI)AfAm 119.04 Est GFR (CKD-EPI)NonAf 102.71 POC Glucometer Random Glucose 426 H* Calcium 8.6 Total Bilirubin 0.6 AST 16 ALT 23 Alkaline Phosphatase 86 Total Protein 6.8 Albumin 3.7 Syphilis Serology Non-reactive COVID-19 ([facility]) Not detected HIV Ag/Ab Combo Qual 06/09/20 06/09/20 06/10/20 16:35 22:03 06:12 WBC RBC Hgb Hct MCV MCH MCHC RDW Plt Count MPV Sodium Potassium Chloride Carbon Dioxide Anion Gap BUN Creatinine Est GFR (CKD-EPI)AfAm Est GFR (CKD-EPI)NonAf POC Glucometer 374 307 321 Random Glucose Calcium Total Bilirubin AST ALT Alkaline Phosphatase Total Protein Albumin Syphilis Serology COVID-19 ([facility]) HIV Ag/Ab Combo Qual aaox3 lying in bed no acute distress labs noted pt is a diabetic and is currently ordered medication for glucose control. Assessment: 06/10/20 11:53 withdrawals Plan: continue detox increase water intake
[2020-06-10] MEDS: THIAMINE HCL 100 MG TABLET (FP) PO SCH (22:14)
[2020-06-10] MEDS: MELATONIN 5 MG TABLETS PO SCH (22:14)
[2020-06-11] MEDS ORDERED: chlordiazePOXIDE HCL 10 MG CAPSULE PO PRN
[2020-06-11] MEDS: VITAMINS A AND D TOPICAL OINTMENT 60 GM TUBE TP SCH ×4 (06:13→18:30)
[2020-06-11] MEDS: chlordiazePOXIDE HCL 10 MG CAPSULE PO SCH ×4 (06:17→22:29)
[2020-06-11] MEDS: INSULIN SLIDING SCALE (NOVOLOG) 1 VIAL SQ SCH ×4 (08:01→22:30)
[2020-06-11] MEDS: PRENATAL VITAMINS W/ FOLIC ACID TABLET (FP) PO SCH (10:43)
[2020-06-11] MEDS: NIFEdipine E.R 60 MG TABLET PO SCH (10:43)
[2020-06-11] MEDS: ROSUVASTATIN CA 20 MG TABLET (FP) PO SCH (10:43)
[2020-06-11] MEDS: NICOTINE 7 MG/24 HOURS TOPICAL PATCH TD SCH (10:45)
--- NOTE | 2020-06-11 11:02 | PN ---
S CIWA - CIWA Score Nausea/Vomitin-No Nausea/No Vomiting Muscle Tremors: 2 Anxiety: 2 Agitation: 2 Paroxysmal Sweats: No Perspiration Orientation: 0-Oriented Tacttile Disturbances: 0-None Auditory Disturbances: 0-None Visual Disturbances: 0-None Headache: 0-None Present CIWA-Ar Total Score: 6 BHS Progress Note (SOAP) Subjective: sweats restless Objective: 06/11/20 10:59 Vital Signs Temperature 97.3 F L 06/11/20 05:42 Pulse Rate 77 06/11/20 05:42 Respiratory Rate 16 06/11/20 05:42 Blood Pressure 130/74 06/11/20 05:42 O2 Sat by Pulse Oximetry (%) 97 06/11/20 05:42 Laboratory Tests 06/09/20 06/09/20 06/09/20 09:29 10:00 10:00 WBC 5.5 RBC 4.39 Hgb 13.6 Hct 39.4 MCV 89.6 MCH 31.0 MCHC 34.6 RDW 14.5 Plt Count 146 D MPV 10.4 Sodium Potassium Chloride Carbon Dioxide Anion Gap BUN Creatinine Est GFR (CKD-EPI)AfAm Est GFR (CKD-EPI)NonAf POC Glucometer 442 Random Glucose Calcium Total Bilirubin AST ALT Alkaline Phosphatase Total Protein Albumin Syphilis Serology COVID-19 (RACHEAL) HIV Ag/Ab Combo Qual Negative 06/09/20 06/09/20 06/09/20 10:00 10:00 10:00 WBC RBC Hgb Hct MCV MCH MCHC RDW Plt Count MPV Sodium 138 Potassium 4.1 Chloride 103 Carbon Dioxide 29 Anion Gap 6 L BUN 11.5 Creatinine 0.8 Est GFR (CKD-EPI)AfAm 119.04 Est GFR (CKD-EPI)NonAf 102.71 POC Glucometer Random Glucose 426 H* Calcium 8.6 Total Bilirubin 0.6 AST 16 ALT 23 Alkaline Phosphatase 86 Total Protein 6.8 Albumin 3.7 Syphilis Serology Non-reactive COVID-19 (RACHEAL) Not detected HIV Ag/Ab Combo Qual 06/09/20 06/09/20 06/10/20 16:35 22:03 06:12 WBC RBC Hgb Hct MCV MCH MCHC RDW Plt Count MPV Sodium Potassium Chloride Carbon Dioxide Anion Gap BUN Creatinine Est GFR (CKD-EPI)AfAm Est GFR (CKD-EPI)NonAf POC Glucometer [phone] Random Glucose Calcium Total Bilirubin AST ALT Alkaline Phosphatase Total Protein Albumin Syphilis Serology COVID-19 (RACHEAL) HIV Ag/Ab Combo Qual 06/10/20 06/10/20 06/10/20 11:51 16:36 21:34 WBC RBC Hgb Hct MCV MCH MCHC RDW Plt Count MPV Sodium Potassium Chloride Carbon Dioxide Anion Gap BUN Creatinine Est GFR (CKD-EPI)AfAm Est GFR (CKD-EPI)NonAf POC Glucometer [phone] Random Glucose Calcium Total Bilirubin AST ALT Alkaline Phosphatase Total Protein Albumin Syphilis Serology COVID-19 (RACHEAL) HIV Ag/Ab Combo Qual 06/11/20 06:16 WBC RBC Hgb Hct MCV MCH MCHC RDW Plt Count MPV Sodium Potassium Chloride Carbon Dioxide Anion Gap BUN Creatinine Est GFR (CKD-EPI)AfAm Est GFR (CKD-EPI)NonAf POC Glucometer 293 Random Glucose Calcium Total Bilirubin AST ALT Alkaline Phosphatase Total Protein Albumin Syphilis Serology COVID-19 (RACHEAL) HIV Ag/Ab Combo Qual labs noted aaox3 ambulating no acute distress Assessment: 06/11/20 11:01 withdrawals Plan: continue detox increase fluids
[2020-06-11] MEDS ORDERED: INSULIN SLIDING SCALE (NOVOLOG) 1 VIAL SQ ONE ×2 (16:43→22:53)
[2020-06-11] MEDS: THIAMINE HCL 100 MG TABLET (FP) PO SCH (22:28)
[2020-06-11] MEDS: MELATONIN 5 MG TABLETS PO SCH (22:29)
[2020-06-12] MEDS: VITAMINS A AND D TOPICAL OINTMENT 60 GM TUBE TP SCH ×4 (01:56→19:35)
[2020-06-12] MEDS: chlordiazePOXIDE HCL 10 MG CAPSULE PO SCH ×2 (06:02→17:38)
[2020-06-12] MEDS ORDERED: INSULIN SLIDING SCALE (NOVOLOG) 1 VIAL SQ ONE ×2 (07:39→17:12)
[2020-06-12] MEDS: INSULIN SLIDING SCALE (NOVOLOG) 1 VIAL SQ SCH ×4 (07:43→22:03)
[2020-06-12] MEDS: ROSUVASTATIN CA 20 MG TABLET (FP) PO SCH (10:12)
[2020-06-12] MEDS: NIFEdipine E.R 60 MG TABLET PO SCH (10:12)
[2020-06-12] MEDS: PRENATAL VITAMINS W/ FOLIC ACID TABLET (FP) PO SCH (10:12)
[2020-06-12] MEDS: NICOTINE 7 MG/24 HOURS TOPICAL PATCH TD SCH (10:13)
--- NOTE | 2020-06-12 12:07 | PN ---
S CIWA - CIWA Score Nausea/Vomitin-No Nausea/No Vomiting Muscle Tremors: 1-None Visible, but [place] Anxiety: 2 Agitation: 1-Slight > Activity Paroxysmal Sweats: No Perspiration Orientation: 0-Oriented Tacttile Disturbances: 0-None Auditory Disturbances: 0-None Visual Disturbances: 0-None Headache: 0-None Present CIWA-Ar Total Score: 4 BHS Progress Note (SOAP) Subjective: Complaints mild anxiety and tremors. Objective: 06/12/20 12:06 Vital Signs 06/12/20 06/12/20 05:48 09:35 Temperature 97.1 F L 97.2 F L Pulse Rate 82 94 H Respiratory 20 18 Rate Blood Pressure 105/63 111/80 O2 Sat by Pulse 98 98 Oximetry (%) Laboratory Last Values WBC 5.5 K/mm3 (4.0-10.0) 06/09/20 10:00 RBC 4.39 M/mm3 (4.00-5.60) 06/09/20 10:00 Hgb 13.6 GM/dL (11.7-16.9) 06/09/20 10:00 Hct 39.4 % (35.4-49) 06/09/20 10:00 MCV 89.6 fl (80-96) 06/09/20 10:00 MCH 31.0 pg (25.7-33.7) 06/09/20 10:00 MCHC 34.6 g/dl (32.0-35.9) 06/09/20 10:00 RDW 14.5 % (11.9-15.9) 06/09/20 10:00 Plt Count 146 K/MM3 (134-434) D 06/09/20 10:00 MPV 10.4 fl (7.5-11.1) 06/09/20 10:00 Sodium 138 mmol/L (136-145) 06/09/20 10:00 Potassium 4.1 mmol/L (3.5-5.1) 06/09/20 10:00 Chloride 103 mmol/L (98-107) 06/09/20 10:00 Carbon Dioxide 29 mmol/L (21-32) 06/09/20 10:00 Anion Gap 6 MMOL/L (8-16) L 06/09/20 10:00 BUN 11.5 mg/dL (7-18) 06/09/20 10:00 Creatinine 0.8 mg/dL (0.55-1.3) 06/09/20 10:00 Est GFR (CKD-EPI)AfAm 119.04 06/09/20 10:00 Est GFR (CKD-EPI)NonAf 102.71 06/09/20 10:00 POC Glucometer 237 UNITS (80-120) 06/12/20 05:58 Random Glucose 426 mg/dL (74-106) H* 06/09/20 10:00 Calcium 8.6 mg/dL (8.5-10.1) 06/09/20 10:00 Total Bilirubin 0.6 mg/dL (0.2-1) 06/09/20 10:00 AST 16 U/L (15-37) 06/09/20 10:00 ALT 23 U/L (13-61) 06/09/20 10:00 Alkaline Phosphatase 86 U/L (45-117) 06/09/20 10:00 Total Protein 6.8 g/dl (6.4-8.2) 06/09/20 10:00 Albumin 3.7 g/dl (3.4-5.0) 06/09/20 10:00 Syphilis Serology Non-reactive (NONREACTIVE) 06/09/20 10:00 COVID-19 (RACHEAL) Not detected (Not Detected) 06/09/20 10:00 HIV Ag/Ab Combo Qual Negative (NEGATIVE) 06/09/20 10:00 Labs noted. Assessment: 06/12/20 12:06 Alert and oriented x3, in no acute respiratory distress. Full ROM, ambulating in hallway with assistance. Skin warm to touch with no lesions noted. For D/C in AM. Plan: Continue detox protocol. D/C in AM.
[2020-06-12] MEDS: MELATONIN 5 MG TABLETS PO SCH (22:04)
[2020-06-12] MEDS: THIAMINE HCL 100 MG TABLET (FP) PO SCH (22:04)
[2020-06-13] MEDS ORDERED: chlordiazePOXIDE HCL 10 MG CAPSULE PO ONE (05:00)
[2020-06-13] MEDS: VITAMINS A AND D TOPICAL OINTMENT 60 GM TUBE TP SCH (05:58)
[2020-06-13 06:39] VITALS: BP 126/71; PULSE 74; TEMP 97.5
[2020-06-13] MEDS: INSULIN SLIDING SCALE (NOVOLOG) 1 VIAL SQ SCH (07:02)
--- NOTE | 2020-06-13 14:57 | DS ---
[facility] Detox Discharge Summary Admission Date: 06/09/20 Discharge Date: 06/13/20 - History Present History: Alcohol Dependence - Physical Exam Results Vital Signs: Vital Signs Temperature 97.5 F L 06/13/20 06:38 Pulse Rate 74 06/13/20 06:38 Respiratory Rate 16 06/13/20 06:38 Blood Pressure 126/71 06/13/20 06:38 O2 Sat by Pulse Oximetry (%) 96 06/13/20 06:38 Laboratory Tests 06/09/20 06/09/20 06/09/20 09:29 10:00 10:00 WBC 5.5 RBC 4.39 Hgb 13.6 Hct 39.4 MCV 89.6 MCH 31.0 MCHC 34.6 RDW 14.5 Plt Count 146 D MPV 10.4 Sodium Potassium Chloride Carbon Dioxide Anion Gap BUN Creatinine Est GFR (CKD-EPI)AfAm Est GFR (CKD-EPI)NonAf POC Glucometer 442 Random Glucose Calcium Total Bilirubin AST ALT Alkaline Phosphatase Total Protein Albumin Syphilis Serology COVID-19 (RACHEAL) HIV Ag/Ab Combo Qual Negative 06/09/20 06/09/20 06/09/20 10:00 10:00 10:00 WBC RBC Hgb Hct MCV MCH MCHC RDW Plt Count MPV Sodium 138 Potassium 4.1 Chloride 103 Carbon Dioxide 29 Anion Gap 6 L BUN 11.5 Creatinine 0.8 Est GFR (CKD-EPI)AfAm 119.04 Est GFR (CKD-EPI)NonAf 102.71 POC Glucometer Random Glucose 426 H* Calcium 8.6 Total Bilirubin 0.6 AST 16 ALT 23 Alkaline Phosphatase 86 Total Protein 6.8 Albumin 3.7 Syphilis Serology Non-reactive COVID-19 (RACHEAL) Not detected HIV Ag/Ab Combo Qual 06/09/20 06/09/20 06/10/20 16:35 22:03 06:12 WBC RBC Hgb Hct MCV MCH MCHC RDW Plt Count MPV Sodium Potassium Chloride Carbon Dioxide Anion Gap BUN Creatinine Est GFR (CKD-EPI)AfAm Est GFR (CKD-EPI)NonAf POC Glucometer [phone] Random Glucose Calcium Total Bilirubin AST ALT Alkaline Phosphatase Total Protein Albumin Syphilis Serology COVID-19 (RACHEAL) HIV Ag/Ab Combo Qual 06/10/20 06/10/20 06/10/20 11:51 16:36 21:34 WBC RBC Hgb Hct MCV MCH MCHC RDW Plt Count MPV Sodium Potassium Chloride Carbon Dioxide Anion Gap BUN Creatinine Est GFR (CKD-EPI)AfAm Est GFR (CKD-EPI)NonAf POC Glucometer 313 276 369 Random Glucose Calcium Total Bilirubin AST ALT Alkaline Phosphatase Total Protein Albumin Syphilis Serology COVID-19 (RACHEAL) HIV Ag/Ab Combo Qual 06/11/20 06/11/20 06/11/20 06:16 16:40 22:26 WBC RBC Hgb Hct MCV MCH MCHC RDW Plt Count MPV Sodium Potassium Chloride Carbon Dioxide Anion Gap BUN Creatinine Est GFR (CKD-EPI)AfAm Est GFR (CKD-EPI)NonAf POC Glucometer 293 356 331 Random Glucose Calcium Total Bilirubin AST ALT Alkaline Phosphatase Total Protein Albumin Syphilis Serology COVID-19 (RACHEAL) HIV Ag/Ab Combo Qual 06/12/20 06/12/20 06/12/20 05:58 16:46 22:00 WBC RBC Hgb Hct MCV MCH MCHC RDW Plt Count MPV Sodium Potassium Chloride Carbon Dioxide Anion Gap BUN Creatinine Est GFR (CKD-EPI)AfAm Est GFR (CKD-EPI)NonAf POC Glucometer 237 345 250 Random Glucose Calcium Total Bilirubin AST ALT Alkaline Phosphatase Total Protein Albumin Syphilis Serology COVID-19 (RACHEAL) HIV Ag/Ab Combo Qual 06/13/20 06:00 WBC RBC Hgb Hct MCV MCH MCHC RDW Plt Count MPV Sodium Potassium Chloride Carbon Dioxide Anion Gap BUN Creatinine Est GFR (CKD-EPI)AfAm Est GFR (CKD-EPI)NonAf POC Glucometer 228 Random Glucose Calcium Total Bilirubin AST ALT Alkaline Phosphatase Total Protein Albumin Syphilis Serology COVID-19 (RACHEAL) HIV Ag/Ab Combo Qual ROS DENIES CRAVINGS, ANXIETY, RESTLESSNESS AND SWEATS PE ALERT AND ORIENTED X 3 SKIN WARM AND DRY IN NAD EXT AMB AD DANIEL, NO TREMORS FULL ROM DENIES SI/HI A/P: ETOH DEPENDENCE MEDICALLY STABLE FOR D/C - Treatment Hospital Course: Detox Protocol Followed, Detoxed Safely, Responded well, Discharged Condition Good, Rehab Referral Accepted Patient has Accepted a Rehab Referral to: [facility] - Medication Discharge Medications: Ambulatory Orders Nifedipine [Procardia Xl] 60 mg PO DAILY #30 tab.er.24 10/01/19 Metformin HCl [Glucophage] 850 mg PO BID #60 tablet 02/03/20 Rosuvastatin Calcium [Crestor] 20 mg PO DAILY #30 tablet 02/03/20 - AMA Did Patient Leave Against Medical Advice: No
== END 2020-06-13 09:10 | disposition home or self-care (01) | DRG 897 ==
LOC: YASAS 08:22 → Y6N 09:44
PROVIDERS: ADMIT Allergy & Immunology; ATTEND Allergy & Immunology
PROC: HZ2ZZZZ Detoxification Services for Substance Abuse Treatment (ICD-10-PCS; principal; 2020-06-09)
DX: F10.230 Alcohol dependence with withdrawal, uncomplicated (principal); F17.210 Nicotine dependence, cigarettes, uncomplicated; E11.9 Type 2 diabetes mellitus without complications; I10 Essential (primary) hypertension; E78.5 Hyperlipidemia, unspecified; Z88.8 Allergy status to other drugs, medicaments and biological substances; Z91.011 Allergy to milk products; Z91.14 Patient's other noncompliance with medication regimen; Z87.438 Personal history of other diseases of male genital organs
CPT/HCPCS: 36415; 80053; 82962; 85027; 86780; 87389; U0003

== ENCOUNTER 2020-07-17 08:23 | Inpatient (IN) | payer OTHER ==
--- NOTE | 2020-07-17 10:17 | BHS.RME ---
Substance Use & Tx History - Substance Use History Alcohol Substance amount: 1 pint of vodka/ 15 of 12 ozs of beer Frequency of use: Daily Substance route: Oral Date of Last Use: 07/17/20 Marijuana/Hashish Substance amount: 70$ Frequency of use: Once a month Substance route: Smoking Date of Last Use: 07/17/20 Xanax Substance amount: 4 mgs Frequency of use: Less than 3 times per week Substance route: Oral Date of Last Use: 07/15/20 - Last Treatment Date of last treatment: [facility] 06/09/20 to 07/14/20 Where was last treatment: Detox Physical/Psych/Mental Status - Behavior Eye Contact: Normal - Cooperativeness Cooperativeness: Cooperative - Thinking Thought Processes: Logical Thought content: Future oriented - Physical Health Problems Is patient presently having any pain?: No Does patient presently have any injuries (include location): No Does patient currently have a fever: No CIWA Nausea/Vomitin Muscle Tremors: 3 Anxiety: 3 Agitation: 3 Paroxysmal Sweats: 1-Minimal Palms Moist Orientation: 0-Oriented Tacttile Disturbances: 1-Very Mild Itch/Numbness Auditory Disturbances: 0-None Visual Disturbances: 0-None Headache: 2-Mild CIWA-Ar Total Score: 15
--- NOTE | 2020-07-17 10:36 | HP ---
CIWA Score Nausea/Vomitin Muscle Tremors: 3 Anxiety: 3 Agitation: 3 Paroxysmal Sweats: 1-Minimal Palms Moist Orientation: 0-Oriented Tacttile Disturbances: 1-Very Mild Itch/Numbness Auditory Disturbances: 0-None Visual Disturbances: 0-None Headache: 2-Mild CIWA-Ar Total Score: 15 - Admission Criteria OASAS Guidelines: Admission for Medically Managed Detox: Requires at least one of the followin. CIWA greater than 12 2. Seizures within the past 24 hours 3. Delirium tremens within the past 24 hours 4. Hallucinations within the past 24 hours 5. Acute intervention needed for co occurring medical disorder 6. Acute intervention needed for co occurring psychiatric disorder 7. Severe withdrawal that cannot be handled at a lower level of care (continued vomiting, continued diarrhea, abnormal vital signs) requiring intravenous medication and/or fluids 8. Admitting History and Physical - Admission Chief Complaint: i need help to stop drinking alcohol,marijuana and xanax History of Present Illness: this 54 years old male with alcohol,marijuana and xanax dependence seeking help to stop History Source: Patient Limitations to Obtaining History: No Limitations - Past Medical History [employer]: Yes: Syncope Cardiovascular: Yes: HTN, Hyperlipdemia Psych: Yes: Anxiety, Other (insomnia) Endocrine: Yes: Diabetes Mellitus, Other - Past Surgical History Past Surgical History: Yes: None - Smoking History Smoking history: Former smoker Have you smoked in the past 12 months: Yes Aproximately how many cigarettes per day: 2 If you are a former smoker, when did you quit?: 04/23 - Alcohol/Substance Use Hx Alcohol Use: Yes History of Substance Use: reports: Marijuana, Tranquilizers - Social History Do you think of yourself as: Straight/Heterosexual ADL: Support Services Occupation: on disability History of Recent Travel: No Other Social History: no legal issue Admission [facility] Chief Complaint: need help to stop drinking alcohol,marijuana and xanax Allergies/Adverse Reactions: Allergies Allergy/AdvReac Type Severity Reaction Status Date / Time lactose Allergy Severe diarrhea Verified 07/17/20 11:36 lorazepam [From Ativan] Allergy Intermediate depression Verified 07/17/20 11:36 melatonin Allergy Intermediate depressed Verified 07/17/20 11:36 trazodone Allergy Intermediate depression Verified 07/17/20 11:36 History of Present Illness: this 54 years old male with alcohol,marijuana and xanax dependence,seeking help to stop,detox,withdrawal symptom multiple admissions to this facility but keep relapsing,last detox 06/09/20 to 06/13/20 relapse 2 days after detox history of syncope denied seizure history of htn type 2 dm,hypercholesterolemia,anxiety longest sobriety 3 years plan for rehab after detox Exam Limitations: No Limitations - Ebola screening Have you traveled outside of the country in the last 21 days: No Have you had contact with anyone from an Ebola affected area: No Have you been sick,other than usual withdrawal symptoms: No Do you have a fever: No - Review of Systems Constitutional: Loss of Appetite, Malaise, Night Sweats, Weakness EENT: reports: Nose Congestion Respiratory: reports: No Symptoms reported Cardiac: reports: No Symptoms Reported GI: reports: Nausea, Poor Appetite, Abdominal cramping Musculoskeletal: reports: Muscle Pain Integumentary: reports: Dryness Neuro: reports: Tremors Endocrine: reports: No Symptoms Reported Hematology: reports: No Symptoms Reported Psychiatric: reports: No Sypmtoms Reported, Judgement Intact, Mood/Affect Appropiate, Orientated x3, Anxious Patient History - Patient Medical History Hx Anemia: No Hx Asthma: No Hx Chronic Obstructive Pulmonary Disease (COPD): No Hx Cancer: No Hx Cardiac Disorders: No Hx Congestive Heart Failure: No Hx Hypertension: Yes (on med) Hx Hypercholesterolemia: Yes (on med) Hx Pacemaker: No HX Cerebrovascular Accident: No Hx Seizures: No Hx Dementia: No Hx Diabetes: Yes (type 2 dm) Hx Gastrointestinal Disorders: No Hx Liver Disease: No Hx Genitourinary Disorders: No Hx Sexually Transmitted Disorders: Yes (syphilis at age 38, completed tx.) Hx Renal Disease (ESRD): No Hx Thyroid Disease: No Hx Human Immunodeficiency Virus (HIV): No (LAST 06/24 ) Hx Hepatitis C: No Hx Depression: Yes (anxiety) Hx Suicide Attempt: No Hx Bipolar Disorder: No Hx Schizophrenia: No Other Medical History: no suicidal,no homicidal - Patient Surgical History Past Surgical History: No Hx Neurologic Surgery: No Hx Cataract Extraction: No Hx Cardiac Surgery: No Hx Lung Surgery: No Hx Breast Surgery: No Hx Breast Biopsy: No Hx Abdominal Surgery: No Hx Appendectomy: No Hx Cholecystectomy: No Hx Genitourinary Surgery: No Hx Section: No Hx Orthopedic Surgery: No Hx Hysterectomy: No Anesthesia Reaction: No - PPD History Previous Implant?: Yes Documented Results: Negative w/proof Date: 02/02/20 Results: 0 mm PPD to be Administered?: No - Smoking Cessation Smoking history: Former smoker Have you smoked in the past 12 months: Yes Aproximately how many cigarettes per day: 6 If you are a former smoker, when did you quit?: 04/23 Cigars Per Day: 0 Hx Chewing Tobacco Use: No Initiated information on smoking cessation: Yes 'Breaking Loose' booklet given: 07/17/20 - Substance & Tx. History Hx Alcohol Use: Yes Hx Substance Use: Yes Substance Use Type: Alcohol, Marijuana, Tranquilizers Hx Substance Use Treatment: Yes ([facility] 06/09/20 to 06/13/20) - Substances abused Alcohol Substance route: Oral Frequency: Daily Amount used: 1 pint of vodka/15 of 12 ozs of beer Age of first use: 19 Date of last use: 07/17/20 Marijuana/Hashish Frequency: 1-3 times last 30 days Amount used: 70$ Age of first use: 19 Date of last use: 07/17/20 Alprazolam (Xanax) Substance route: Oral Frequency: 1-2 times per week Amount used: 4 mgs Age of first use: 52 Date of last use: 07/15/20 Admission Physical Exam S - Vital Signs Vital Signs: bp 138/90,p69,r18,t96.7,franklyn 0.000,pulse ox 100% - Physical General Appearance: Yes: Moderate Distress, Tremorous, Irritable, Anxious HEENTM: Yes: Normal ENT Inspection, Normocephalic, JACKLYN Respiratory: Yes: Lungs Clear, Normal Breath Sounds, No Respiratory Distress Neck: Yes: Within Normal Limits, Supple, Trachea in good position Breast: Yes: Within Normal Limits Cardiology: Yes: Within Normal Limits, Regular Rhythm, Regular Rate, S1, S2 Abdominal: Yes: Within Normal Limits, Normal Bowel Sounds, Non Tender, Flat, Soft Genitourinary: Yes: Within Normal Limits Musculoskeletal: Yes: Back pain, Muscle Pain Extremities: Yes: Tremors 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: Yes: director of emergency nursing II-XII NML intact, Fully Oriented, Alert, Motor Strength 5/5 Integumentary: Yes: Dry Lymphatic: Yes: Within Normal Limits - Diagnostic (1) Alcohol dependence with uncomplicated withdrawal Current Visit: Yes Status: Acute (2) Sedative, hypnotic or anxiolytic abuse, uncomplicated Current Visit: Yes Status: Chronic (3) Syncope Current Visit: No Status: Acute Qualifiers: Syncope type: unspecified Qualified Code(s): R55 - Syncope and collapse (4) Cannabis abuse Current Visit: No Status: Chronic (5) DM Diabetes mellitus type 2 Current Visit: No Status: Chronic Comment: bgm = (6) Essential hypertension Current Visit: No Status: Chronic (7) Hypercholesterolemia Current Visit: No Status: Chronic (8) No natural teeth Current Visit: No Status: Chronic (9) Insomnia secondary to depression with anxiety Current Visit: Yes Status: Acute Cleared for Admission BHS - Detox or Rehab S Level of Care: Medically Managed Detox Regimen/Protocol: Librium Breathalyzer - Breathalyzer Breathalyzer: 0 Urine Drug Screen - Test Device Lot number: [id number] Expiration date: 06/04/21 - Control Is test valid?: Yes - Results Drug screen NEGATIVE: No Urine drug screen results: THC-Marijuana, BZO-Benzodiazepines Inpatient Rehab Admission - Rehab Decision to Admit Inpatient rehab admission?: No
[2020-07-17] MEDS ORDERED: chlordiazePOXIDE HCL 25 MG CAPSULE PO PRN (10:56)
[2020-07-17] MEDS ORDERED: MAGNESIUM HYDROX 2400MG/30ML ORAL SUSPENSION 30 ML CUP PO PRN (11:05)
[2020-07-17] MEDS ORDERED: MENTHOL/PHENOL 1 EACH UD MM PRN (11:05)
[2020-07-17] MEDS ORDERED: MAG HYDROX/AL HYDROX/SIMETH 30 ML UNIT-DOSE CUP PO PRN (11:05)
[2020-07-17] MEDS ORDERED: BISMUTH SUBSALICYLATE 524 MG/30 ML UD PO PRN (11:05)
[2020-07-17] MEDS ORDERED: ONDANSETRON *ODT* 4 MG TABLET SL PRN (11:05)
[2020-07-17] MEDS ORDERED: ACETAMINOPHEN 325 MG TABLET (FP) PO PRN ×2 (11:05)
[2020-07-17] MEDS ORDERED: IBUPROFEN 400 MG TABLET (FP) PO PRN (11:05)
[2020-07-17] MEDS ORDERED: METHOCARBAMOL 500 MG TABLET PO PRN (11:05)
[2020-07-17 11:09] VITALS: BMI 26.9
[2020-07-17] MEDS: hydrOXYzine PAMOATE 25 MG CAPSULE (FP) PO SCH (14:44)
[2020-07-17] MEDS: CLINDAMYCIN PHOSPHATE 1% TOPICAL GEL 30 GM TUBE TP SCH (15:12)
--- NOTE | 2020-07-17 17:25 | CONSULT ---
[facility] Psychiatric Consult - Data Date of interview: 07/17/20 Admission source: [facility] Identifying data: Revisit to [facility] and admission to [address] [place] [address] for this 54 y/o male self-referred for detoxification treatment. JESSE issues : alcohol, cannabis, benzodiazepine (xanax), nicotine. Patient is without children, domiciled ([facility] setting), unemployed and supported on SSI/SSD benefits. Substance Abuse History: Discussed with the patient. JESSE profile as follows : Smoking history: Former smoker. Have you smoked in the past 12 months: Yes. Aproximately how many cigarettes per day: 6. If you are a former smoker, when did you quit?: 04/23. Cigars Per Day: 0. Hx Chewing Tobacco Use: No. Initiated information on smoking cessation: Yes. 'Breaking Loose' booklet given: 07/17/20. - Substance & Tx. History. Hx Alcohol Use: Yes. Hx Substance Use: Yes. Substance Use Type: Alcohol, Marijuana, Tranquilizers. Hx Substance Use Treatment: Yes ([facility] 06/09/20 to 06/13/20). - Substances abused. Alcohol. Substance route: Oral. Frequency: Daily. Amount used: 1 pint of vodka/15 of 12 ozs of beer. Age of first use: 19. Date of last use: 07/17/20. Marijuana/Hashish. Frequency: 1-3 times last 30 days. Amount used: 70$. Age of first use: 19. Date of last use: 07/17/20. Alprazolam (Xanax). Substance route: Oral. Frequency: 1-2 times per week. Amount used: 4 mgs. Age of first use: 52. Date of last use: 07/15/20 Medical History: Medical profile is remarkable for obesity, hypertension, dyslipidemia, diabetes mellitus and past history of treatment for syphilis + gonorrhea. Psychiatric History: Patient denies history of psychiatric hospitalizations. Has been diagnosed with Anxiety Disorder. Mr Carrasco reports past treatment with SSRI medications and hydroxyzine. No OPD care for several months since his psychiatrist left program. In the meantime, the patient has been relying on primary care providers fo scripts for vistaril. Patient denies history of swati cide attempts. Physical/Sexual Abuse/Trauma History: Patient denies history of abuse. Additional Comment: Urine drug screen results: THC-Marijuana, BZO- Benzodiazepines. Noted. Mental Status Exam - Mental Status Exam Alert and Oriented to: Time, Place, Person Cognitive Function: Good Patient Appearance: Well Groomed Mood: Anxious (mildly anxious), Hopeful Affect: Normal Range, Constricted Patient Behavior: Appropriate, Cooperative Speech Pattern: Clear, Appropriate Voice Loudness: Normal Thought Process: Intact, Goal Oriented Thought Disorder: Not Present Hallucinations: Denies Suicidal Ideation: Denies Insight/Judgement: Poor Sleep: Fair Appetite: Good Gait/Station: Normal Psychiatric Findings - Problem List ([place] 1, 2,3) (1) Alcohol dependence with uncomplicated withdrawal Current Visit: Yes Status: Acute (2) Sedative, hypnotic or anxiolytic abuse, uncomplicated Current Visit: Yes Status: Chronic (3) Cannabis dependence Current Visit: Yes Status: Chronic (4) Substance induced mood disorder Current Visit: Yes Status: Chronic - Initial Treatment Plan Initial Treatment Plan: Detoxification in progress. Psychoeducation. Sleep hygiene. Support and encouragement for maintenance of sobriety (rehabilitation is being contemplated by patient). MAT-ETOH interventions discussed in this session. Observation.
[2020-07-17] MEDS: chlordiazePOXIDE HCL 25 MG CAPSULE PO SCH (19:13)
[2020-07-17] MEDS: INSULIN SLIDING SCALE (NOVOLOG) 1 VIAL SQ SCH ×2 (19:19→22:35)
[2020-07-18] MEDS: CLINDAMYCIN PHOSPHATE 1% TOPICAL GEL 30 GM TUBE TP SCH ×3 (00:02→23:30)
[2020-07-18] MEDS: ROSUVASTATIN CA 20 MG TABLET (FP) PO SCH ×2 (00:02→23:24)
[2020-07-18] MEDS: chlordiazePOXIDE HCL 25 MG CAPSULE PO SCH ×5 (00:03→23:24)
[2020-07-18] MEDS: hydrOXYzine PAMOATE 25 MG CAPSULE (FP) PO SCH ×6 (00:04→23:24)
[2020-07-18] MEDS: MELATONIN 5 MG TABLETS PO SCH ×2 (00:04→23:30)
[2020-07-18] MEDS: THIAMINE HCL 100 MG TABLET (FP) PO SCH ×2 (00:04→23:25)
[2020-07-18] MEDS: INSULIN SLIDING SCALE (NOVOLOG) 1 VIAL SQ SCH ×4 (07:56→23:25)
[2020-07-18 09:02] LABS: HEMOGLOBIN 14.5 GM/dL (11.7-16.9); MCH 31.4 pg (25.7-33.7); MCHC 34.6 g/dl (32.0-35.9); MEAN CELL VOLUME 90.6 fl (80-96); MEAN PLT VOLUME 10.3 fl (7.5-11.1); PLATELET COUNT 177 K/MM3 (134-434); RBC 4.64 M/mm3 (4.00-5.60); WHITE BLOOD COUNT 4.4 K/mm3 (4.0-10.0)
[2020-07-18 09:59] LABS: CREATININE 0.8 mg/dL (0.55-1.3); POTASSIUM 4.2 mmol/L (3.5-5.1)
[2020-07-18 10:04] LABS: ALBUMIN 3.6 g/dl (3.4-5.0); BILIRUBIN,TOTAL 0.6 mg/dL (0.2-1); BLOOD UREA NITROGEN 13.2 mg/dL (7-18); CALCIUM 8.7 mg/dL (8.5-10.1)
[2020-07-18 10:05] LABS: TOT PROT 7.4 g/dl (6.4-8.2)
[2020-07-18] MEDS: NIFEdipine E.R. 30 MG TABLET PO SCH (10:32)
[2020-07-18] MEDS: PRENATAL VITAMINS W/ FOLIC ACID TABLET (FP) PO SCH (10:32)
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
[2020-07-18] MEDS: DOXYCYCLINE HYCLATE 100 MG CAPSULE PO SCH (23:24)
[2020-07-19] MEDS: chlordiazePOXIDE HCL 25 MG CAPSULE PO SCH ×4 (05:33→22:42)
[2020-07-19] MEDS: hydrOXYzine PAMOATE 25 MG CAPSULE (FP) PO SCH ×5 (05:34→22:42)
[2020-07-19] MEDS: INSULIN SLIDING SCALE (NOVOLOG) 1 VIAL SQ SCH ×4 (06:45→22:45)
[2020-07-19] MEDS: DOXYCYCLINE HYCLATE 100 MG CAPSULE PO SCH ×2 (10:17→17:46)
[2020-07-19] MEDS: PRENATAL VITAMINS W/ FOLIC ACID TABLET (FP) PO SCH (10:17)
[2020-07-19] MEDS: NIFEdipine E.R. 30 MG TABLET PO SCH (10:17)
[2020-07-19] MEDS: CLINDAMYCIN PHOSPHATE 1% TOPICAL GEL 30 GM TUBE TP SCH ×2 (10:18→22:44)
--- NOTE | 2020-07-19 14:11 | PN ---
S CIWA - CIWA Score Nausea/Vomitin-Mild Nausea/No Vomiting Muscle Tremors: 2 Anxiety: 2 Agitation: 0-Normal Activity Paroxysmal Sweats: 2 Orientation: 0-Oriented Tacttile Disturbances: 1-Very Mild Itch/Numbness Auditory Disturbances: 0-None Visual Disturbances: 0-None Headache: 1-Very Mild CIWA-Ar Total Score: 9 BHS Progress Note (SOAP) Subjective: 54 years old male was admitted on 07/17/20 for alcohol and benzo withdrawal sx management treating with librium detox regiment less tremor mild anxiety Objective: 07/19/20 14:11 Laboratory Tests 07/17/20 07/17/20 07/17/20 11:34 12:40 16:49 WBC RBC Hgb Hct MCV MCH MCHC RDW Plt Count MPV Sodium Potassium Chloride Carbon Dioxide Anion Gap BUN Creatinine Est GFR (CKD-EPI)AfAm Est GFR (CKD-EPI)NonAf POC Glucometer 359 299 Random Glucose Calcium Total Bilirubin AST ALT Alkaline Phosphatase Total Protein Albumin Syphilis Serology COVID-19 (RACHEAL) Not detected 07/17/20 07/18/20 07/18/20 22:07 05:54 07:30 WBC RBC Hgb Hct MCV MCH MCHC RDW Plt Count MPV Sodium Potassium Chloride Carbon Dioxide Anion Gap BUN Creatinine Est GFR (CKD-EPI)AfAm Est GFR (CKD-EPI)NonAf POC Glucometer 248 195 Random Glucose Calcium Total Bilirubin AST ALT Alkaline Phosphatase Total Protein Albumin Syphilis Serology Non-reactive COVID-19 (RACHEAL) 07/18/20 07/18/20 07/18/20 07:30 07:30 11:42 WBC 4.4 RBC 4.64 Hgb 14.5 Hct 42.0 MCV 90.6 MCH 31.4 MCHC 34.6 RDW 14.0 Plt Count 177 D MPV 10.3 Sodium 142 Potassium 4.2 Chloride 104 Carbon Dioxide 32 Anion Gap 6 L BUN 13.2 Creatinine 0.8 Est GFR (CKD-EPI)AfAm 119.04 Est GFR (CKD-EPI)NonAf 102.71 POC Glucometer 171 Random Glucose 180 H Calcium 8.7 Total Bilirubin 0.6 AST 9 L ALT 18 Alkaline Phosphatase 74 Total Protein 7.4 Albumin 3.6 Syphilis Serology COVID-19 (RACHEAL) 07/18/20 07/18/20 07/19/20 17:14 21:51 05:35 WBC RBC Hgb Hct MCV MCH MCHC RDW Plt Count MPV Sodium Potassium Chloride Carbon Dioxide Anion Gap BUN Creatinine Est GFR (CKD-EPI)AfAm Est GFR (CKD-EPI)NonAf POC Glucometer 212 186 217 Random Glucose Calcium Total Bilirubin AST ALT Alkaline Phosphatase Total Protein Albumin Syphilis Serology COVID-19 (RACHEAL) 07/19/20 11:33 WBC RBC Hgb Hct MCV MCH MCHC RDW Plt Count MPV Sodium Potassium Chloride Carbon Dioxide Anion Gap BUN Creatinine Est GFR (CKD-EPI)AfAm Est GFR (CKD-EPI)NonAf POC Glucometer 205 Random Glucose Calcium Total Bilirubin AST ALT Alkaline Phosphatase Total Protein Albumin Syphilis Serology COVID-19 (RACHEAL) 07/19/20 14:13 tolerated doxcycline well Assessment: 07/19/20 14:18 alcohol and benzo withdrawal Plan: librium regiment
[2020-07-19] MEDS: THIAMINE HCL 100 MG TABLET (FP) PO SCH (22:42)
[2020-07-19] MEDS: ROSUVASTATIN CA 20 MG TABLET (FP) PO SCH (22:42)
[2020-07-20] MEDS ORDERED: chlordiazePOXIDE HCL 10 MG CAPSULE PO PRN
[2020-07-20] MEDS: hydrOXYzine PAMOATE 25 MG CAPSULE (FP) PO SCH ×5 (06:12→22:27)
[2020-07-20] MEDS: chlordiazePOXIDE HCL 10 MG CAPSULE PO SCH ×4 (06:12→22:28)
[2020-07-20] MEDS: INSULIN SLIDING SCALE (NOVOLOG) 1 VIAL SQ SCH ×4 (07:58→22:28)
[2020-07-20] MEDS: NIFEdipine E.R. 30 MG TABLET PO SCH (10:26)
[2020-07-20] MEDS: PRENATAL VITAMINS W/ FOLIC ACID TABLET (FP) PO SCH (10:26)
[2020-07-20] MEDS: DOXYCYCLINE HYCLATE 100 MG CAPSULE PO SCH ×2 (10:28→18:00)
[2020-07-20] MEDS: CLINDAMYCIN PHOSPHATE 1% TOPICAL GEL 30 GM TUBE TP SCH ×2 (10:30→22:34)
[2020-07-20 10:34] LABS: URINE APPEARANCE CLEAR; URINE BILIRUBIN NEGATIVE (NEGATIVE); URINE COLOR YELLOW; URINE GLUCOSE (UA) 2+ (NEGATIVE); URINE KETONE TRACE (NEGATIVE); URINE LEUK ESTERASE NEGATIVE (NEGATIVE); URINE NITRITE NEGATIVE (NEGATIVE); URINE PROTEIN NEGATIVE (NEGATIVE); URINE UROBILINOGEN 0.2 mg/dL (0.2-1.0)
--- NOTE | 2020-07-20 11:38 | PN ---
S CIWA - CIWA Score Nausea/Vomitin-Mild Nausea/No Vomiting Muscle Tremors: 1-None Visible, but [place] Anxiety: 1-Mildly Anxious Agitation: 1-Slight > Activity Paroxysmal Sweats: 1-Minimal Palms Moist Orientation: 0-Oriented Tacttile Disturbances: 0-None Auditory Disturbances: 0-None Visual Disturbances: 1-Very Mild Sensitivity Headache: 1-Very Mild CIWA-Ar Total Score: 7 BHS Progress Note (SOAP) Subjective: 54 years old male was admitted on 07/17/20 for alcohol and benzo withdrawal sx management treating with librium detox regiment feels ok today discussing aftercare with staff that [facility] is the [facility] for his alcohol and bezo abuse treatment Vital Signs - 24 hr 07/19/20 07/19/20 07/19/20 12:35 16:46 20:23 Temperature 97.3 F L 97.7 F 97.5 F L Pulse Rate 81 90 83 Respiratory 18 18 16 Rate Blood Pressure 129/87 117/82 124/83 O2 Sat by Pulse 97 98 Oximetry (%) 07/20/20 07/20/20 06:00 08:52 Temperature 97.0 F L 97.1 F L Pulse Rate 63 90 Respiratory 16 18 Rate Blood Pressure 126/78 138/90 O2 Sat by Pulse 99 Oximetry (%) Laboratory Tests 07/17/20 07/17/20 07/17/20 11:34 12:40 16:49 WBC RBC Hgb Hct MCV MCH MCHC RDW Plt Count MPV Sodium Potassium Chloride Carbon Dioxide Anion Gap BUN Creatinine Est GFR (CKD-EPI)AfAm Est GFR (CKD-EPI)NonAf POC Glucometer 359 299 Random Glucose Calcium Total Bilirubin AST ALT Alkaline Phosphatase Total Protein Albumin Urine Color Urine Appearance Urine pH Ur Specific Williams Urine Protein Urine Glucose (UA) Urine Ketones Urine Blood Urine Nitrite Urine Bilirubin Urine Urobilinogen Ur Leukocyte Esterase Syphilis Serology COVID-19 (RACHEAL) Not detected 07/17/20 07/18/20 07/18/20 22:07 05:54 07:30 WBC RBC Hgb Hct MCV MCH MCHC RDW Plt Count MPV Sodium Potassium Chloride Carbon Dioxide Anion Gap BUN Creatinine Est GFR (CKD-EPI)AfAm Est GFR (CKD-EPI)NonAf POC Glucometer 248 195 Random Glucose Calcium Total Bilirubin AST ALT Alkaline Phosphatase Total Protein Albumin Urine Color Urine Appearance Urine pH Ur Specific Williams Urine Protein Urine Glucose (UA) Urine Ketones Urine Blood Urine Nitrite Urine Bilirubin Urine Urobilinogen Ur Leukocyte Esterase Syphilis Serology Non-reactive COVID-19 (RACHEAL) 07/18/20 07/18/20 07/18/20 07:30 07:30 11:42 WBC 4.4 RBC 4.64 Hgb 14.5 Hct 42.0 MCV 90.6 MCH 31.4 MCHC 34.6 RDW 14.0 Plt Count 177 D MPV 10.3 Sodium 142 Potassium 4.2 Chloride 104 Carbon Dioxide 32 Anion Gap 6 L BUN 13.2 Creatinine 0.8 Est GFR (CKD-EPI)AfAm 119.04 Est GFR (CKD-EPI)NonAf 102.71 POC Glucometer 171 Random Glucose 180 H Calcium 8.7 Total Bilirubin 0.6 AST 9 L ALT 18 Alkaline Phosphatase 74 Total Protein 7.4 Albumin 3.6 Urine Color Urine Appearance Urine pH Ur Specific Williams Urine Protein Urine Glucose (UA) Urine Ketones Urine Blood Urine Nitrite Urine Bilirubin Urine Urobilinogen Ur Leukocyte Esterase Syphilis Serology COVID-19 (RACHEAL) 07/18/20 07/18/20 07/19/20 17:14 21:51 05:35 WBC RBC Hgb Hct MCV MCH MCHC RDW Plt Count MPV Sodium Potassium Chloride Carbon Dioxide Anion Gap BUN Creatinine Est GFR (CKD-EPI)AfAm Est GFR (CKD-EPI)NonAf POC Glucometer 212 186 217 Random Glucose Calcium Total Bilirubin AST ALT Alkaline Phosphatase Total Protein Albumin Urine Color Urine Appearance Urine pH Ur Specific Williams Urine Protein Urine Glucose (UA) Urine Ketones Urine Blood Urine Nitrite Urine Bilirubin Urine Urobilinogen Ur Leukocyte Esterase Syphilis Serology COVID-19 (RACHEAL) 07/19/20 07/19/20 07/19/20 11:33 16:41 21:22 WBC RBC Hgb Hct MCV MCH MCHC RDW Plt Count MPV Sodium Potassium Chloride Carbon Dioxide Anion Gap BUN Creatinine Est GFR (CKD-EPI)AfAm Est GFR (CKD-EPI)NonAf POC Glucometer 205 213 237 Random Glucose Calcium Total Bilirubin AST ALT Alkaline Phosphatase Total Protein Albumin Urine Color Urine Appearance Urine pH Ur Specific Williams Urine Protein Urine Glucose (UA) Urine Ketones Urine Blood Urine Nitrite Urine Bilirubin Urine Urobilinogen Ur Leukocyte Esterase Syphilis Serology COVID-19 (RACHEAL) 07/20/20 07/20/20 06:12 08:00 WBC RBC Hgb Hct MCV MCH MCHC RDW Plt Count MPV Sodium Potassium Chloride Carbon Dioxide Anion Gap BUN Creatinine Est GFR (CKD-EPI)AfAm Est GFR (CKD-EPI)NonAf POC Glucometer 204 Random Glucose Calcium Total Bilirubin AST ALT Alkaline Phosphatase Total Protein Albumin Urine Color Yellow Urine Appearance Clear Urine pH 5.0 Ur Specific Williams 1.030 Urine Protein Negative Urine Glucose (UA) 2+ H Urine Ketones Trace H Urine Blood Negative Urine Nitrite Negative Urine Bilirubin Negative Urine Urobilinogen 0.2 Ur Leukocyte Esterase Negative Syphilis Serology COVID-19 (RACHEAL) none insulin dependent diabetes Objective: 07/20/20 11:38 Vital Signs - 24 hr 07/19/20 07/19/20 07/19/20 12:35 16:46 20:23 Temperature 97.3 F L 97.7 F 97.5 F L Pulse Rate 81 90 83 Respiratory 18 18 16 Rate Blood Pressure 129/87 117/82 124/83 O2 Sat by Pulse 97 98 Oximetry (%) 07/20/20 07/20/20 06:00 08:52 Temperature 97.0 F L 97.1 F L Pulse Rate 63 90 Respiratory 16 18 Rate Blood Pressure 126/78 138/90 O2 Sat by Pulse 99 Oximetry (%) Assessment: 07/20/20 11:38 alcohol and opiate withdrawal Plan: librium and methadone regiments
[2020-07-20] MEDS ORDERED: INSULIN SLIDING SCALE (NOVOLOG) 1 VIAL SQ ONE (16:04)
[2020-07-20] MEDS: THIAMINE HCL 100 MG TABLET (FP) PO SCH (22:27)
[2020-07-20] MEDS: ROSUVASTATIN CA 20 MG TABLET (FP) PO SCH (22:34)
[2020-07-21] MEDS ORDERED: chlordiazePOXIDE HCL 10 MG CAPSULE PO SCH (05:00)
[2020-07-21] MEDS: hydrOXYzine PAMOATE 25 MG CAPSULE (FP) PO SCH ×5 (05:55→21:42)
[2020-07-21] MEDS: INSULIN SLIDING SCALE (NOVOLOG) 1 VIAL SQ SCH ×4 (06:35→21:46)
--- NOTE | 2020-07-21 09:14 | HP ---
[facility] Rehab Assess/Revision - Admission History Admitted to Rehab from: [facility] Date of Admission to Rehab: 07/21/20 - Vital signs Vital Signs: Vital Signs Period Temp Pulse Resp BP Sys/Kurtz Pulse Ox Last 24 Hr 97.2 F-97.7 F 81-84 18-18 101-128/67-90 97-99 - Findings Detox History & Physical reviewed: Yes Concur with findings: Yes Comments/Additional Findings: transferred from detox to rehab admission as per protocol Inpatient Rehab Admission - Rehab Decision to Admit Inpatient rehab admission?: Yes - Initial Determination Are CD services needed?: Yes Free of communicable disease: Yes Not in need of hospitalization: Yes - Rehab Admission Criteria Previous failed treatment: Yes Poor recovery environment: Yes Comorbidities: Yes Lacks judgement: Yes Patient is meeting Inpatient Rehab admission criteria:: Yes
[2020-07-21] MEDS: PRENATAL VITAMINS W/ FOLIC ACID TABLET (FP) PO SCH (10:21)
[2020-07-21] MEDS: DOXYCYCLINE HYCLATE 100 MG CAPSULE PO SCH ×2 (10:21→19:30)
[2020-07-21] MEDS: NIFEdipine E.R 60 MG TABLET PO SCH (12:19)
[2020-07-21] MEDS: CLINDAMYCIN PHOSPHATE 1% TOPICAL GEL 30 GM TUBE TP SCH ×2 (12:19→21:45)
[2020-07-21] MEDS: NIFEdipine E.R. 30 MG TABLET PO SCH (12:29)
[2020-07-21] MEDS: ROSUVASTATIN CA 20 MG TABLET (FP) PO SCH (21:41)
[2020-07-21] MEDS: THIAMINE HCL 100 MG TABLET (FP) PO SCH (21:42)
[2020-07-22] MEDS ORDERED: chlordiazePOXIDE HCL 10 MG CAPSULE PO ONE (05:00)
[2020-07-22] MEDS: hydrOXYzine PAMOATE 25 MG CAPSULE (FP) PO SCH ×5 (06:00→21:02)
[2020-07-22] MEDS: INSULIN SLIDING SCALE (NOVOLOG) 1 VIAL SQ SCH ×3 (07:04→16:52)
[2020-07-22] MEDS ORDERED: PT OWN MED DRAWER 7, Y5N ONE (09:04)
[2020-07-22] MEDS: NIFEdipine E.R 60 MG TABLET PO SCH (10:47)
[2020-07-22] MEDS: DOXYCYCLINE HYCLATE 100 MG CAPSULE PO SCH ×2 (10:47→17:45)
[2020-07-22] MEDS: PRENATAL VITAMINS W/ FOLIC ACID TABLET (FP) PO SCH (10:47)
[2020-07-22] MEDS: CLINDAMYCIN PHOSPHATE 1% TOPICAL GEL 30 GM TUBE TP SCH ×2 (10:49→21:02)
[2020-07-22] MEDS ORDERED: INSULIN SLIDING SCALE (NOVOLOG) 1 VIAL SQ ONE ×2 (14:27→16:55)
[2020-07-22] MEDS: THIAMINE HCL 100 MG TABLET (FP) PO SCH (21:02)
[2020-07-22] MEDS: ROSUVASTATIN CA 20 MG TABLET (FP) PO SCH (21:02)
[2020-07-23] MEDS: hydrOXYzine PAMOATE 25 MG CAPSULE (FP) PO SCH ×2 (06:44→10:55)
[2020-07-23] MEDS: INSULIN SLIDING SCALE (NOVOLOG) 1 VIAL SQ SCH ×2 (07:16→16:35)
[2020-07-23] MEDS ORDERED: hydrOXYzine PAMOATE 25 MG CAPSULE (FP) PO PRN (10:26)
[2020-07-23] MEDS: PRENATAL VITAMINS W/ FOLIC ACID TABLET (FP) PO SCH (10:38)
[2020-07-23] MEDS: NIFEdipine E.R 60 MG TABLET PO SCH (10:38)
[2020-07-23] MEDS: CLINDAMYCIN PHOSPHATE 1% TOPICAL GEL 30 GM TUBE TP SCH ×2 (10:39→21:46)
[2020-07-23] MEDS: DOXYCYCLINE HYCLATE 100 MG CAPSULE PO SCH (10:39)
[2020-07-23] MEDS: THIAMINE HCL 100 MG TABLET (FP) PO SCH (21:44)
[2020-07-23] MEDS: ROSUVASTATIN CA 20 MG TABLET (FP) PO SCH (21:44)
[2020-07-23] MEDS: hydrOXYzine PAMOATE 25 MG CAPSULE (FP) PO PRN (21:45)
[2020-07-24] MEDS: INSULIN SLIDING SCALE (NOVOLOG) 1 VIAL SQ SCH ×2 (06:44→16:44)
[2020-07-24] MEDS: PRENATAL VITAMINS W/ FOLIC ACID TABLET (FP) PO SCH (10:11)
[2020-07-24] MEDS: CLINDAMYCIN PHOSPHATE 1% TOPICAL GEL 30 GM TUBE TP SCH ×2 (10:11→21:03)
[2020-07-24] MEDS: NIFEdipine E.R 60 MG TABLET PO SCH (10:11)
[2020-07-24] MEDS: hydrOXYzine PAMOATE 25 MG CAPSULE (FP) PO PRN (10:11)
--- NOTE | 2020-07-24 17:33 | PN ---
Psychiatric Progress Note Vital Signs: Vital Signs Period Temp Pulse Resp BP Sys/Kurtz Pulse Ox Last 24 Hr 96.3 F-97.6 F 77-84 18-18 121-137/82-87 95-98 Date of Session: 07/24/20 Chief Complaint:: " Can I get tegretol for my anxiety. I don't like vistaril." HPI: Patient wanted to see the psychiatrist to discuss change of medications. He states that " a doctor in the [place] used to prescribe me tegretol of rmy anxiety " and he wonders if he could get the same medication at [facility]. Patient is " unhappy " with hydroxyzine. Hospital course remains uneventful. ROS: Unremarkable. Current Medications: Active Medications Generic Name Dose Route Start Last Admin Trade Name Freq PRN Reason Stop Dose Admin Acetaminophen 650 mg 07/17/20 11:05 Tylenol - PO Q6H PRN PAIN LEVEL 4 - 6 Acetaminophen 650 mg 07/17/20 11:05 Tylenol - PO Q6H PRN FEVER Al Hydroxide/Mg Hydroxide 30 ml 07/17/20 11:05 Mylanta Oral Suspension - PO Q6H PRN DYSPEPSIA Bismuth Subsalicylate 524 mg 07/17/20 11:05 Pepto-Bismol - PO Q1H PRN DIARRHEA Clindamycin Phosphate 1 applic 07/17/20 11:15 07/24/20 10:11 Cleocin 1% Gel - TP 1 applic BID MARILEE Administration Hydroxyzine Pamoate 25 mg 07/23/20 12:26 07/24/20 10:11 Vistaril - PO 25 mg Q6H PRN Administration ANXIETY Ibuprofen 400 mg 07/17/20 11:05 Motrin - PO Q6H PRN PAIN LEVEL 1 - 3 Insulin Aspart 1 vial 07/22/20 16:30 07/24/20 16:44 Novolog Vial Sliding Scale - SQ Not Given BIDAC MARILEE Protocol Magnesium Citrate 300 ml 07/17/20 11:05 Citroma - PO Q48H PRN CONSTIPATION Magnesium Hydroxide 30 ml 07/17/20 11:05 Milk Of Magnesia - PO PRN PRN CONSTIPATION Metformin HCl 850 mg 07/17/20 16:30 07/24/20 16:42 Glucophage - PO 850 mg BIDAC MARILEE Administration Nifedipine 60 mg 07/21/20 10:55 07/24/20 10:11 Procardia Xl - PO 60 mg DAILY MARILEE Administration Ondansetron HCl 4 mg 07/17/20 11:05 Zofran Odt - SL Q8H PRN Nausea/Vomiting Multivit/Folic Acid/Iron 1 tab 07/18/20 10:00 07/24/20 10:11 Vitamins (Sjr) - PO 1 tab DAILY MARILEE Administration Rosuvastatin Calcium 20 mg 07/17/20 22:00 07/23/20 21:44 Crestor - PO 20 mg HS MARILEE Administration Thiamine HCl 100 mg 07/17/20 22:00 07/23/20 21:44 Vitamin B1 - PO Not Given HS MARILEE Medication(s) Change(s): A selection of anxiolytics is discussed . Patient is made aware of the true indication of carbamazepine + its side effects/benefits. He is also educated about the benefits of SSRI medications (informed of the delay in onset of effects). He agrees to a trial of neurontin. Gabapentin is added to the regimen : 100 mg po tid. Side effects/benefits discussed with the patient. Mr Carrasco is in agreement. Consent granted. Current Side Effect: No Lab tests ordered: No Lab tests reviewed: Yes Provider note:: Chart reviewed. Met with patient. Medications discussed (anxiolytics). Patient is receptive to teaching. Mr Carrasco is noted as calm, appropriate, well groomed and polite. He denies suicidal or homicidal ideation, intent or plan. Feels well except for transient episodes of mild anxiety. Intact cognition. Mental status is stable. Total face to face time:: 25 Mental Status Exam - Mental Status Exam Alert and Oriented to: Time, Place, Person Cognitive Function: Good Patient Appearance: Well Groomed Mood: Withdrawn, Hopeful Affect: Appropriate, Normal Range Patient Behavior: Appropriate, Cooperative Speech Pattern: Clear, Appropriate Voice Loudness: Normal Thought Process: Intact, Goal Oriented Thought Disorder: Not Present Hallucinations: Denies Suicidal Ideation: Denies Homicidal Ideation: Denies Insight/Judgement: Fair Sleep: Well Appetite: Good Gait/Station: Normal Psychiatric Treatment Plan - Problem List (1) Alcohol use disorder Current Visit: Yes Comment: . (2) Sedative, hypnotic or anxiolytic abuse, uncomplicated Current Visit: Yes Comment: . (3) Cannabis dependence Current Visit: Yes Comment: . (4) Substance induced mood disorder Current Visit: Yes Comment: .
[2020-07-24] MEDS: THIAMINE HCL 100 MG TABLET (FP) PO SCH (21:03)
[2020-07-24] MEDS: ROSUVASTATIN CA 20 MG TABLET (FP) PO SCH (21:03)
[2020-07-24] MEDS: GABAPENTIN 100 MG CAPSULE PO SCH (21:04)
[2020-07-25] MEDS: GABAPENTIN 100 MG CAPSULE PO SCH ×3 (06:41→21:30)
[2020-07-25] MEDS: INSULIN SLIDING SCALE (NOVOLOG) 1 VIAL SQ SCH ×2 (06:46→17:11)
[2020-07-25] MEDS: NIFEdipine E.R 60 MG TABLET PO SCH (10:03)
[2020-07-25] MEDS: CLINDAMYCIN PHOSPHATE 1% TOPICAL GEL 30 GM TUBE TP SCH ×2 (10:03→21:31)
[2020-07-25] MEDS: PRENATAL VITAMINS W/ FOLIC ACID TABLET (FP) PO SCH (10:03)
[2020-07-25] MEDS: THIAMINE HCL 100 MG TABLET (FP) PO SCH (21:29)
[2020-07-25] MEDS: ROSUVASTATIN CA 20 MG TABLET (FP) PO SCH (21:30)
[2020-07-26] MEDS: GABAPENTIN 100 MG CAPSULE PO SCH ×3 (06:19→21:07)
[2020-07-26] MEDS: INSULIN SLIDING SCALE (NOVOLOG) 1 VIAL SQ SCH ×2 (07:05→16:48)
[2020-07-26] MEDS: NIFEdipine E.R 60 MG TABLET PO SCH (09:57)
[2020-07-26] MEDS: PRENATAL VITAMINS W/ FOLIC ACID TABLET (FP) PO SCH (09:58)
[2020-07-26] MEDS: MAGNESIUM CITRATE 300 ML BOTTLE PO PRN (10:02)
[2020-07-26] MEDS: CLINDAMYCIN PHOSPHATE 1% TOPICAL GEL 30 GM TUBE TP SCH ×2 (10:03→21:07)
[2020-07-26] MEDS: THIAMINE HCL 100 MG TABLET (FP) PO SCH (21:07)
[2020-07-26] MEDS: ROSUVASTATIN CA 20 MG TABLET (FP) PO SCH (21:07)
[2020-07-27] MEDS: GABAPENTIN 100 MG CAPSULE PO SCH ×3 (06:37→21:41)
[2020-07-27] MEDS: INSULIN SLIDING SCALE (NOVOLOG) 1 VIAL SQ SCH ×2 (07:18→16:27)
[2020-07-27] MEDS ORDERED: PERMETHRIN 5% TOPICAL CREAM 60 GM TUBE TP ONE (10:13)
[2020-07-27] MEDS: PRENATAL VITAMINS W/ FOLIC ACID TABLET (FP) PO SCH (10:19)
[2020-07-27] MEDS: CLINDAMYCIN PHOSPHATE 1% TOPICAL GEL 30 GM TUBE TP SCH ×2 (10:19→21:41)
[2020-07-27] MEDS: NIFEdipine E.R 60 MG TABLET PO SCH (10:19)
--- NOTE | 2020-07-27 10:30 | PN ---
S Progress Note (SOAP) Subjective: patient lives in a hotel. Also spent time in a long-term. He has multiple raised red lesions on both his arms. He also has the scars from many previous lesions. He was treated with permetherin for the lesions at an ER, where he was told they were caused by bedbugs. Objective: General: No apparent distress SKIN: bilateral arms with raised, red lesions, top skin removed. no bleed or exudate noted, but exquisitely tender to palpation. Some dark areas where lesions have healed Extremities: no other lesions on legs Neuro: No cognitive deficits MSK: full ROM 07/27/20 10:27 Assessment: Bed Bug bites; cellulitis 07/27/20 10:30 07/27/20 11:32 Plan: Permethrin ordered. Doxycillin ordered
[2020-07-27] MEDS: DOXYCYCLINE HYCLATE 100 MG TABLET PO SCH (11:00)
[2020-07-27] MEDS: ROSUVASTATIN CA 20 MG TABLET (FP) PO SCH (21:40)
[2020-07-27] MEDS: THIAMINE HCL 100 MG TABLET (FP) PO SCH (21:40)
[2020-07-28] MEDS: GABAPENTIN 100 MG CAPSULE PO SCH ×3 (06:34→21:03)
[2020-07-28] MEDS: INSULIN SLIDING SCALE (NOVOLOG) 1 VIAL SQ SCH ×2 (07:11→16:25)
[2020-07-28] MEDS: NIFEdipine E.R 60 MG TABLET PO SCH (09:49)
[2020-07-28] MEDS: DOXYCYCLINE HYCLATE 100 MG TABLET PO SCH (09:50)
[2020-07-28] MEDS: CLINDAMYCIN PHOSPHATE 1% TOPICAL GEL 30 GM TUBE TP SCH ×2 (09:50→21:02)
[2020-07-28] MEDS: PRENATAL VITAMINS W/ FOLIC ACID TABLET (FP) PO SCH (09:50)
[2020-07-28] MEDS: THIAMINE HCL 100 MG TABLET (FP) PO SCH (21:03)
[2020-07-28] MEDS: ROSUVASTATIN CA 20 MG TABLET (FP) PO SCH (21:03)
[2020-07-29] MEDS: GABAPENTIN 100 MG CAPSULE PO SCH ×3 (06:03→21:44)
[2020-07-29] MEDS: INSULIN SLIDING SCALE (NOVOLOG) 1 VIAL SQ SCH ×2 (06:28→16:32)
[2020-07-29] MEDS: CLINDAMYCIN PHOSPHATE 1% TOPICAL GEL 30 GM TUBE TP SCH ×2 (09:57→21:45)
[2020-07-29] MEDS: DOXYCYCLINE HYCLATE 100 MG TABLET PO SCH (09:57)
[2020-07-29] MEDS: NIFEdipine E.R 60 MG TABLET PO SCH (09:57)
[2020-07-29] MEDS: PRENATAL VITAMINS W/ FOLIC ACID TABLET (FP) PO SCH (09:57)
[2020-07-29] MEDS ORDERED: PT OWN MED DRAWER 7, Y5N ONE (16:34)
[2020-07-29] MEDS: THIAMINE HCL 100 MG TABLET (FP) PO SCH (21:43)
[2020-07-29] MEDS: ROSUVASTATIN CA 20 MG TABLET (FP) PO SCH (21:44)
[2020-07-29] MEDS: HYDROCORTISONE 1% TOPICAL OINT 30 GM TUBE TP PRN (21:44)
[2020-07-30] MEDS: GABAPENTIN 100 MG CAPSULE PO SCH ×3 (06:05→23:01)
[2020-07-30] MEDS: INSULIN SLIDING SCALE (NOVOLOG) 1 VIAL SQ SCH ×2 (06:06→17:15)
[2020-07-30] MEDS: PRENATAL VITAMINS W/ FOLIC ACID TABLET (FP) PO SCH (10:01)
[2020-07-30] MEDS: DOXYCYCLINE HYCLATE 100 MG TABLET PO SCH (10:01)
[2020-07-30] MEDS: NIFEdipine E.R 60 MG TABLET PO SCH (10:01)
[2020-07-30] MEDS: CLINDAMYCIN PHOSPHATE 1% TOPICAL GEL 30 GM TUBE TP SCH ×2 (10:02→23:01)
[2020-07-30] MEDS: HYDROCORTISONE 1% TOPICAL OINT 30 GM TUBE TP PRN (10:02)
[2020-07-30] MEDS: MAGNESIUM CITRATE 300 ML BOTTLE PO PRN (13:50)
[2020-07-30] MEDS: ROSUVASTATIN CA 20 MG TABLET (FP) PO SCH (23:01)
[2020-07-30] MEDS: THIAMINE HCL 100 MG TABLET (FP) PO SCH (23:01)
[2020-07-31] MEDS: GABAPENTIN 100 MG CAPSULE PO SCH ×4 (06:19→21:06)
[2020-07-31] MEDS: INSULIN SLIDING SCALE (NOVOLOG) 1 VIAL SQ SCH ×2 (07:07→17:51)
[2020-07-31] MEDS: CLINDAMYCIN PHOSPHATE 1% TOPICAL GEL 30 GM TUBE TP SCH ×2 (10:16→21:05)
[2020-07-31] MEDS: DOXYCYCLINE HYCLATE 100 MG TABLET PO SCH (10:16)
[2020-07-31] MEDS: NIFEdipine E.R 60 MG TABLET PO SCH (10:16)
[2020-07-31] MEDS: PRENATAL VITAMINS W/ FOLIC ACID TABLET (FP) PO SCH (10:16)
[2020-07-31] MEDS: HYDROCORTISONE 1% TOPICAL OINT 30 GM TUBE TP PRN (10:17)
[2020-07-31] MEDS ORDERED: INSULIN (NOVOLOG) ASPART 100 UNITS/ML 10ML VIAL ONE (17:51)
[2020-07-31] MEDS: ROSUVASTATIN CA 20 MG TABLET (FP) PO SCH (21:06)
[2020-07-31] MEDS: THIAMINE HCL 100 MG TABLET (FP) PO SCH (21:07)
[2020-08-01] MEDS: GABAPENTIN 100 MG CAPSULE PO SCH ×3 (06:35→22:21)
[2020-08-01] MEDS: INSULIN SLIDING SCALE (NOVOLOG) 1 VIAL SQ SCH ×2 (07:07→16:57)
[2020-08-01] MEDS: DOXYCYCLINE HYCLATE 100 MG TABLET PO SCH (10:25)
[2020-08-01] MEDS: NIFEdipine E.R 60 MG TABLET PO SCH (10:25)
[2020-08-01] MEDS: PRENATAL VITAMINS W/ FOLIC ACID TABLET (FP) PO SCH (10:25)
[2020-08-01] MEDS: HYDROCORTISONE 1% TOPICAL OINT 30 GM TUBE TP PRN ×2 (10:26→22:23)
[2020-08-01] MEDS: CLINDAMYCIN PHOSPHATE 1% TOPICAL GEL 30 GM TUBE TP SCH ×2 (10:27→22:21)
[2020-08-01] MEDS ORDERED: INSULIN (NOVOLOG) ASPART 100 UNITS/ML 10ML VIAL ONE (17:06)
[2020-08-01] MEDS ORDERED: PT OWN MED DRAWER 7, Y5N ONE (21:38)
[2020-08-01] MEDS: THIAMINE HCL 100 MG TABLET (FP) PO SCH (22:21)
[2020-08-01] MEDS: ROSUVASTATIN CA 20 MG TABLET (FP) PO SCH (22:21)
[2020-08-02] MEDS: GABAPENTIN 100 MG CAPSULE PO SCH ×3 (06:31→21:47)
[2020-08-02] MEDS: INSULIN SLIDING SCALE (NOVOLOG) 1 VIAL SQ SCH ×2 (06:32→16:32)
[2020-08-02] MEDS: PRENATAL VITAMINS W/ FOLIC ACID TABLET (FP) PO SCH (09:50)
[2020-08-02] MEDS: NIFEdipine E.R 60 MG TABLET PO SCH (09:50)
[2020-08-02] MEDS: CLINDAMYCIN PHOSPHATE 1% TOPICAL GEL 30 GM TUBE TP SCH ×2 (09:51→21:46)
[2020-08-02] MEDS: DOXYCYCLINE HYCLATE 100 MG TABLET PO SCH (09:51)
[2020-08-02] MEDS: HYDROCORTISONE 1% TOPICAL OINT 30 GM TUBE TP PRN (09:51)
[2020-08-02] MEDS ORDERED: INSULIN (NOVOLOG) ASPART 100 UNITS/ML 10ML VIAL ONE (16:31)
[2020-08-02] MEDS: ROSUVASTATIN CA 20 MG TABLET (FP) PO SCH (21:46)
[2020-08-02] MEDS: THIAMINE HCL 100 MG TABLET (FP) PO SCH (21:47)
[2020-08-03] MEDS: GABAPENTIN 100 MG CAPSULE PO SCH ×3 (06:13→21:45)
[2020-08-03] MEDS: INSULIN SLIDING SCALE (NOVOLOG) 1 VIAL SQ SCH ×2 (06:29→16:56)
[2020-08-03] MEDS: PRENATAL VITAMINS W/ FOLIC ACID TABLET (FP) PO SCH (09:27)
[2020-08-03] MEDS: DOXYCYCLINE HYCLATE 100 MG TABLET PO SCH (09:27)
[2020-08-03] MEDS: HYDROCORTISONE 1% TOPICAL OINT 30 GM TUBE TP PRN (09:27)
[2020-08-03] MEDS: CLINDAMYCIN PHOSPHATE 1% TOPICAL GEL 30 GM TUBE TP SCH ×2 (09:29→21:45)
[2020-08-03] MEDS: NIFEdipine E.R 60 MG TABLET PO SCH (09:29)
--- NOTE | 2020-08-03 11:13 | PN ---
[facility] Progress Note (SOAP) Subjective: Scheduled for discharge in the morning. CD aftercare referral by counselor to [facility], [place], [place]. Objective: 08/03/20 11:13 Vital Signs - 24 hr 08/02/20 08/02/20 08/03/20 15:14 20:40 06:05 Temperature 97.9 F 97.7 F Pulse Rate 84 Respiratory 18 Rate Blood Pressure 138/90 O2 Sat by Pulse 96 96 97 Oximetry (%) 08/03/20 08:43 Temperature 96.5 F L Pulse Rate 83 Respiratory 16 Rate Blood Pressure 124/68 O2 Sat by Pulse Oximetry (%) Alert o x 3 nad cardiac;s1 s2, rrr Lungs:ctab
--- NOTE | 2020-08-03 14:21 | PN ---
S Progress Note Note: Patient is scheduled for discharged tomorrow. Script for 30 days supply of Gabapentin 100 mg/tid will be electronically transmitted to [facility], [facility] [facility] [place] [address]
--- NOTE | 2020-08-03 15:47 | PN ---
[facility] Progress Note Note: Pt is scheduled for discharge in the morning 08/04/20. Vital Signs - 24 hr 08/02/20 08/03/20 08/03/20 20:40 06:05 08:43 Temperature 97.9 F 97.7 F 96.5 F L Pulse Rate 84 83 Respiratory 18 16 Rate Blood Pressure 138/90 124/68 O2 Sat by Pulse 96 97 Oximetry (%) 08/03/20 14:49 Temperature Pulse Rate Respiratory Rate Blood Pressure O2 Sat by Pulse 96 Oximetry (%) Alert o x 3 nad oob ambulating with steady gait cardiac;s1 s2,rrr lungs;ctab abdomen:soft,+bs,nt,nd MSK:Active FROM,all limbs; skin:no edema;intact. Medically stable may d/c in a.m if stable Reports has most own meds except Crestor medication request and electronically sent to pharmacy for leaf size picker. Follow up with PCP at [facility]. Pt is referred to CD aftercare at [facility], [place]
[2020-08-03] MEDS: ROSUVASTATIN CA 20 MG TABLET (FP) PO SCH (21:45)
[2020-08-03] MEDS: THIAMINE HCL 100 MG TABLET (FP) PO SCH (21:45)
[2020-08-04] MEDS: INSULIN SLIDING SCALE (NOVOLOG) 1 VIAL SQ SCH (06:49)
[2020-08-04] MEDS: GABAPENTIN 100 MG CAPSULE PO SCH (06:49)
[2020-08-04 07:16] VITALS: BP 140/90; PULSE 80; TEMP 98
--- NOTE | 2020-08-04 08:35 | DS ---
[facility] Rehab Discharge Summary - [facility] Rehab Discharge Summary Admission Date: 07/17/20 Discharge Date: 08/04/20 - History Present History: Alcohol dependence, Cannabis dependence, Cocaine dependence Pertinent Past History: Mr. Carrasco is a 54 yo man who presents to [facility] with alcohol dependence. He was last here between January 31 and 2019. He was then referred to Rehab at [facility]. However, due to insurance problems he did not attend and soon thereafter relapsed. PMH: HTN, borderline DM, HLD, dx with scabies one month ago/treated with total body wash, cream, lotion PSH: none Psych: anxiety, no meds or psychiatrist SOC: SRO in [place] Legal: none - Discharge Physical Exam Vital Signs: Vital Signs Temperature 98 F 08/04/20 06:20 Pulse Rate 80 08/04/20 06:20 Respiratory Rate 18 08/04/20 06:20 Blood Pressure 140/90 08/04/20 06:20 O2 Sat by Pulse Oximetry (%) 96 08/04/20 06:20 Pertinent Admission Physical Exam Findings: Physical General Appearance: No Apparent Distress, HEENTM: EOMI, Normocephalic, Respiratory: No Respiratory Distress, No Accessory Muscle Use Neck: Supple Abdominal: +Bowel Sounds Musculoskeletal: Full ROM, Gait Steady 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: no cognitive deficits Integumentary: Rash (bilateral forearms with scattered lesions in various stages of healing. - Treatment Discharge Condition: Discharge condition good (Medically stable for discharge.), Outpatient referral accepted (Patient will go to [facility] Hospital Course: Patient attended groups, had 1:1 with his counselor, was seen by the psychiatric service. He was adherent to his medication regimen and treatment plan. He was treated for bedbug bites. - Medication Discharge Medications: Ambulatory Orders Nifedipine [Procardia Xl] 60 mg PO DAILY #30 tab.er.24 10/01/19 Metformin HCl [Glucophage] 850 mg PO BID #60 tablet 02/03/20 Clindamycin 1% Gel [Cleocin 1% Gel -] 1 applic TP BID #1 tube 08/03/20 Gabapentin [Neurontin -] 100 mg PO TID #90 capsule 08/03/20 Rosuvastatin Calcium [Crestor] 20 mg PO DAILY #30 tablet 08/03/20 Permethrin 5% Topical Cream [Elimite -] 1 applic TP ONCE 1 Days #1 tube 08/04/20 - Medication-Assisted Treatment (MAT) Medication-Assisted Treatment (MAT): No - Discharge Instructions Diet, activity, other medical instructions: Diet: as tolerated Activity: as tolerated Other medical instructions: Please follow up with aftercare referral. - Diagnosis (1) Alcohol dependence with uncomplicated withdrawal Current Visit: Yes Status: Chronic (2) Cannabis dependence Current Visit: Yes Status: Chronic (3) Cocaine dependence Current Visit: Yes Status: Chronic Qualifiers: Substance use status: uncomplicated Qualified Code(s): F14.20 - Cocaine dependence, uncomplicated - Follow-up Referral Minutes to complete discharge: 15 - AMA Did Patient Leave Against Medical Advice: No
[2020-08-04] MEDS: NIFEdipine E.R 60 MG TABLET PO SCH (09:11)
[2020-08-04] MEDS: PRENATAL VITAMINS W/ FOLIC ACID TABLET (FP) PO SCH (09:11)
[2020-08-04] MEDS: CLINDAMYCIN PHOSPHATE 1% TOPICAL GEL 30 GM TUBE TP SCH (09:12)
== END 2020-08-04 09:40 | disposition home or self-care (01) | DRG 895 ==
LOC: YASAS 08:23 → Y3N 11:00 → Y3W 07-21 12:48
PROVIDERS: ADMIT Allergy & Immunology; ATTEND Allergy & Immunology
PROC: HZ2ZZZZ Detoxification Services for Substance Abuse Treatment (ICD-10-PCS; 2020-07-17)
PROC: HZ42ZZZ Group Counseling for Substance Abuse Treatment, Cognitive-Behavioral (ICD-10-PCS; principal; 2020-07-21)
DX: F10.20 Alcohol dependence, uncomplicated (principal); F13.20 Sedative, hypnotic or anxiolytic dependence, uncomplicated; F14.20 Cocaine dependence, uncomplicated; L03.113 Cellulitis of right upper limb; L03.114 Cellulitis of left upper limb; F12.20 Cannabis dependence, uncomplicated; F17.211 Nicotine dependence, cigarettes, in remission; F19.24 Other psychoactive substance dependence with psychoactive substance-induced mood disorder; F41.9 Anxiety disorder, unspecified; F51.05 Insomnia due to other mental disorder; I10 Essential (primary) hypertension; E13.620 Other specified diabetes mellitus with diabetic dermatitis; Z79.84 Long term (current) use of oral hypoglycemic drugs; E78.5 Hyperlipidemia, unspecified; B86 Scabies; S40.862A Insect bite (nonvenomous) of left upper arm, initial encounter; S40.861A Insect bite (nonvenomous) of right upper arm, initial encounter; W57.XXXA Bitten or stung by nonvenomous insect and other nonvenomous arthropods, initial encounter; Y93.89 Activity, other specified; Y92.238 Other place in hospital as the place of occurrence of the external cause; Y99.8 Other external cause status; Z86.19 Personal history of other infectious and parasitic diseases; K00.0 Anodontia; Z88.8 Allergy status to other drugs, medicaments and biological substances; Z91.011 Allergy to milk products
CPT/HCPCS: 36415; 80053; 81003; 82962; 85027; 86780; U0003

== ENCOUNTER 2020-09-25 12:03 | Inpatient (IN) | payer OTHER ==
[2020-09-25] MEDS ORDERED: ACETAMINOPHEN 325 MG TABLET (FP) PO PRN (13:27)
[2020-09-25] MEDS ORDERED: LOPERAMIDE HCL 2 MG CAPSULE PO PRN (13:27)
[2020-09-25] MEDS ORDERED: hydrOXYzine PAMOATE 25 MG CAPSULE (FP) PO PRN (13:27)
[2020-09-25] MEDS ORDERED: MAGNESIUM HYDROX 2400MG/30ML ORAL SUSPENSION 30 ML CUP PO PRN (13:27)
[2020-09-25] MEDS ORDERED: MENTHOL/PHENOL 1 EACH UD MM PRN (13:27)
[2020-09-25] MEDS ORDERED: MAGNESIUM CITRATE 300 ML BOTTLE PO PRN (13:27)
[2020-09-25] MEDS ORDERED: guaiFENesin 200 MG/10 ML 10 ML UNIT-DOSE CUPS PO PRN (13:27)
[2020-09-25] MEDS ORDERED: MAG HYDROX/AL HYDROX/SIMETH 30 ML UNIT-DOSE CUP PO PRN (13:27)
[2020-09-25] MEDS ORDERED: P-EPHED 60MG/TRIPROLIDI 2.5MG TABLET PO PRN (13:27)
[2020-09-25] MEDS ORDERED: IBUPROFEN 400 MG TABLET (FP) PO PRN (13:27)
[2020-09-25] MEDS ORDERED: COLLOIDAL OATMEAL 1 BAR EACH TP PRN (13:30)
[2020-09-25 14:03] VITALS: BMI 31.8
[2020-09-25] MEDS: GABAPENTIN 100 MG CAPSULE PO SCH ×2 (15:41→21:54)
[2020-09-25] MEDS: INSULIN SLIDING SCALE (NOVOLOG) 1 VIAL SQ SCH ×2 (16:55→21:57)
[2020-09-25] MEDS: THIAMINE HCL 100 MG TABLET (FP) PO SCH (21:54)
[2020-09-25] MEDS: metFORMIN HCL 500 MG TABLET (FP) PO SCH (21:54)
[2020-09-25] MEDS: MELATONIN 5 MG TABLETS PO SCH (21:55)
[2020-09-26] MEDS: GABAPENTIN 100 MG CAPSULE PO SCH ×3 (06:36→21:06)
[2020-09-26] MEDS ORDERED: INSULIN (NOVOLOG) ASPART 100 UNITS/ML 10ML VIAL ONE ×3 (06:38→22:18)
[2020-09-26] MEDS: INSULIN SLIDING SCALE (NOVOLOG) 1 VIAL SQ SCH ×4 (06:39→21:07)
[2020-09-26] MEDS: PRENATAL VITAMINS W/ FOLIC ACID TABLET (FP) PO SCH (10:03)
[2020-09-26] MEDS ORDERED: ROSUVASTATIN CA 10 MG TABLET (FP) ONE (10:05)
[2020-09-26] MEDS: ROSUVASTATIN CA 20 MG TABLET (FP) PO SCH (10:05)
[2020-09-26] MEDS: metFORMIN HCL 500 MG TABLET (FP) PO SCH ×2 (10:05→21:06)
[2020-09-26] MEDS: NIFEdipine E.R. 30 MG TABLET PO SCH (10:27)
[2020-09-26] MEDS: HYDROCORTISONE 1% TOPICAL CREAM 30 GM TUBE TP PRN ×2 (10:28→21:10)
[2020-09-26] MEDS: THIAMINE HCL 100 MG TABLET (FP) PO SCH (21:06)
[2020-09-26] MEDS: MELATONIN 5 MG TABLETS PO SCH (21:06)
[2020-09-27] MEDS: INSULIN SLIDING SCALE (NOVOLOG) 1 VIAL SQ SCH ×4 (06:36→21:56)
[2020-09-27] MEDS: GABAPENTIN 100 MG CAPSULE PO SCH ×5 (06:37→21:51)
[2020-09-27] MEDS ORDERED: ROSUVASTATIN CA 10 MG TABLET (FP) ONE (09:23)
[2020-09-27] MEDS: PRENATAL VITAMINS W/ FOLIC ACID TABLET (FP) PO SCH (10:21)
[2020-09-27] MEDS: ROSUVASTATIN CA 20 MG TABLET (FP) PO SCH (10:22)
[2020-09-27] MEDS: NIFEdipine E.R. 30 MG TABLET PO SCH (10:22)
[2020-09-27] MEDS: metFORMIN HCL 500 MG TABLET (FP) PO SCH ×2 (10:22→21:48)
[2020-09-27] MEDS ORDERED: INSULIN (NOVOLOG) ASPART 100 UNITS/ML 10ML VIAL ONE (10:38)
[2020-09-27] MEDS: THIAMINE HCL 100 MG TABLET (FP) PO SCH (21:48)
[2020-09-27] MEDS: MELATONIN 5 MG TABLETS PO SCH (21:49)
[2020-09-28] MEDS: GABAPENTIN 100 MG CAPSULE PO SCH ×3 (06:08→21:11)
[2020-09-28] MEDS: INSULIN SLIDING SCALE (NOVOLOG) 1 VIAL SQ SCH ×4 (06:44→21:11)
[2020-09-28] MEDS: PRENATAL VITAMINS W/ FOLIC ACID TABLET (FP) PO SCH (10:00)
[2020-09-28] MEDS: ROSUVASTATIN CA 20 MG TABLET (FP) PO SCH (10:01)
[2020-09-28] MEDS: NIFEdipine E.R. 30 MG TABLET PO SCH (10:01)
[2020-09-28] MEDS: HYDROCORTISONE 1% TOPICAL CREAM 30 GM TUBE TP PRN ×2 (10:03→21:12)
[2020-09-28] MEDS: metFORMIN HCL 500 MG TABLET (FP) PO SCH ×2 (10:15→17:02)
[2020-09-28] MEDS ORDERED: INSULIN (NOVOLOG) ASPART 100 UNITS/ML 10ML VIAL ONE (11:58)
[2020-09-28] MEDS: MELATONIN 5 MG TABLETS PO SCH (21:11)
[2020-09-28] MEDS: THIAMINE HCL 100 MG TABLET (FP) PO SCH (21:11)
[2020-09-29] MEDS: metFORMIN HCL 500 MG TABLET (FP) PO SCH (06:54)
[2020-09-29] MEDS: INSULIN SLIDING SCALE (NOVOLOG) 1 VIAL SQ SCH ×2 (06:55→11:46)
[2020-09-29] MEDS: GABAPENTIN 100 MG CAPSULE PO SCH ×2 (06:55→14:43)
[2020-09-29 07:07] VITALS: TEMP 98
[2020-09-29] MEDS ORDERED: ROSUVASTATIN CA 10 MG TABLET (FP) ONE (08:23)
[2020-09-29] MEDS: NIFEdipine E.R. 30 MG TABLET PO SCH (10:21)
[2020-09-29] MEDS: ROSUVASTATIN CA 20 MG TABLET (FP) PO SCH (10:21)
[2020-09-29] MEDS: PRENATAL VITAMINS W/ FOLIC ACID TABLET (FP) PO SCH (10:22)
[2020-09-29] MEDS: HYDROCORTISONE 1% TOPICAL CREAM 30 GM TUBE TP PRN (10:23)
[2020-09-29 11:36] VITALS: BP 114/70; PULSE 92
[2020-09-29] MEDS ORDERED: INSULIN (NOVOLOG) ASPART 100 UNITS/ML 10ML VIAL ONE (11:45)
== END 2020-09-29 15:23 | disposition home or self-care (01) | DRG 895 ==
LOC: YASAS 12:03 → Y5N 14:03
PROVIDERS: ADMIT Allergy & Immunology; ATTEND Allergy & Immunology
PROC: HZ42ZZZ Group Counseling for Substance Abuse Treatment, Cognitive-Behavioral (ICD-10-PCS; principal; 2020-09-25)
DX: F10.20 Alcohol dependence, uncomplicated (principal); F13.20 Sedative, hypnotic or anxiolytic dependence, uncomplicated; F12.20 Cannabis dependence, uncomplicated; F17.211 Nicotine dependence, cigarettes, in remission; F41.0 Panic disorder [episodic paroxysmal anxiety]; F41.9 Anxiety disorder, unspecified; I10 Essential (primary) hypertension; E78.5 Hyperlipidemia, unspecified; E11.9 Type 2 diabetes mellitus without complications; Z79.84 Long term (current) use of oral hypoglycemic drugs; R21 Rash and other nonspecific skin eruption; Z86.19 Personal history of other infectious and parasitic diseases; Z88.8 Allergy status to other drugs, medicaments and biological substances; Z91.011 Allergy to milk products
CPT/HCPCS: 82962

== ENCOUNTER 2020-10-30 11:34 | Inpatient (IN) | payer OTHER ==
[2020-10-30 12:57] VITALS: BMI 31.3
[2020-10-30] MEDS ORDERED: hydrOXYzine PAMOATE 25 MG CAPSULE (FP) PO PRN (14:24)
[2020-10-30] MEDS ORDERED: MAGNESIUM HYDROX 2400MG/30ML ORAL SUSPENSION 30 ML CUP PO PRN (14:24)
[2020-10-30] MEDS ORDERED: MENTHOL/PHENOL 1 EACH UD MM PRN (14:24)
[2020-10-30] MEDS ORDERED: MAGNESIUM CITRATE 300 ML BOTTLE PO PRN (14:24)
[2020-10-30] MEDS ORDERED: BISMUTH SUBSALICYLATE 524 MG/30 ML PO PRN (14:24)
[2020-10-30] MEDS ORDERED: IBUPROFEN 400 MG TABLET (FP) PO PRN (14:24)
[2020-10-30] MEDS ORDERED: ONDANSETRON *ODT* 4 MG TABLET SL PRN (14:24)
[2020-10-30] MEDS ORDERED: ACETAMINOPHEN 325 MG TABLET (FP) PO PRN ×2 (14:24)
[2020-10-30] MEDS ORDERED: LORazepam 2 MG TABLET PO ONE (14:24)
[2020-10-30] MEDS ORDERED: LORazepam 1 MG TABLET PO PRN (14:24)
[2020-10-30] MEDS ORDERED: MAG HYDROX/AL HYDROX/SIMETH 30 ML UNIT-DOSE CUP PO PRN (14:24)
[2020-10-30] MEDS ORDERED: METHOCARBAMOL 500 MG TABLET PO PRN (14:24)
[2020-10-30] MEDS ORDERED: INSULIN (NOVOLOG) ASPART 100 UNITS/ML 10ML VIAL ONE (16:45)
[2020-10-30] MEDS: GABAPENTIN 100 MG CAPSULE PO SCH ×2 (16:46→22:16)
[2020-10-30] MEDS: LORazepam 2 MG TABLET PO SCH ×2 (16:46→22:27)
[2020-10-30] MEDS: NIFEdipine E.R 60 MG TABLET PO SCH (16:46)
[2020-10-30] MEDS: metFORMIN HCL 500 MG TABLET (FP) PO SCH (16:46)
[2020-10-30] MEDS: INSULIN SLIDING SCALE (NOVOLOG) 1 VIAL SQ SCH (16:47)
[2020-10-30] MEDS: THIAMINE HCL 100 MG TABLET (FP) PO SCH (22:16)
[2020-10-30] MEDS: MELATONIN 5 MG TABLETS PO SCH (22:28)
[2020-10-30] MEDS: ROSUVASTATIN CA 20 MG TABLET PO SCH (22:28)
[2020-10-31] MEDS: LORazepam 2 MG TABLET PO SCH ×4 (05:31→22:02)
[2020-10-31] MEDS: metFORMIN HCL 500 MG TABLET (FP) PO SCH ×2 (07:02→16:50)
[2020-10-31] MEDS: INSULIN SLIDING SCALE (NOVOLOG) 1 VIAL SQ SCH ×2 (07:42→16:53)
[2020-10-31] MEDS ORDERED: INSULIN (NOVOLOG) ASPART 100 UNITS/ML 10ML VIAL ONE ×2 (07:48→16:46)
[2020-10-31] MEDS: PRENATAL VITAMINS W/ FOLIC ACID TABLET (FP) PO SCH (10:30)
[2020-10-31] MEDS: GABAPENTIN 100 MG CAPSULE PO SCH ×2 (10:30→22:02)
[2020-10-31 10:40] LABS: HEMATOCRIT 41.8 % (35.4-49); HEMOGLOBIN 14.3 GM/dL (11.7-16.9); MCH 30.7 pg (25.7-33.7); MCHC 34.2 g/dl (32.0-35.9); MEAN PLT VOLUME 9.8 fl (7.5-11.1); PLATELET COUNT 194 K/MM3 (134-434); RBC 4.65 M/mm3 (4.00-5.60); RDW 14.2 % (11.9-15.9)
[2020-10-31 10:42] LABS: CALCIUM 8.9 mg/dL (8.5-10.1)
[2020-10-31 10:44] LABS: BLOOD UREA NITROGEN 7.7 mg/dL (7-18)
[2020-10-31 10:47] LABS: BILIRUBIN,TOTAL 0.8 mg/dL (0.2-1); CREATININE 0.7 mg/dL (0.55-1.3); TOT PROT 7.2 g/dl (6.4-8.2)
[2020-10-31] MEDS: NIFEdipine E.R 60 MG TABLET PO SCH (12:15)
[2020-10-31] MEDS ORDERED: ROSUVASTATIN CA 10 MG TABLET ONE (21:36)
[2020-10-31] MEDS: MELATONIN 5 MG TABLETS PO SCH (22:02)
[2020-10-31] MEDS: THIAMINE HCL 100 MG TABLET (FP) PO SCH (22:02)
[2020-10-31] MEDS: ROSUVASTATIN CA 20 MG TABLET PO SCH (22:02)
[2020-11-01] MEDS: LORazepam 1 MG TABLET PO SCH ×4 (05:55→22:42)
[2020-11-01] MEDS: metFORMIN HCL 500 MG TABLET (FP) PO SCH ×2 (06:29→17:08)
[2020-11-01] MEDS ORDERED: INSULIN (NOVOLOG) ASPART 100 UNITS/ML 10ML VIAL ONE ×2 (08:17→17:07)
[2020-11-01] MEDS: INSULIN SLIDING SCALE (NOVOLOG) 1 VIAL SQ SCH (08:21)
[2020-11-01] MEDS: NIFEdipine E.R 60 MG TABLET PO SCH (10:19)
[2020-11-01] MEDS: GABAPENTIN 100 MG CAPSULE PO SCH ×2 (10:19→22:42)
[2020-11-01] MEDS: PRENATAL VITAMINS W/ FOLIC ACID TABLET (FP) PO SCH (10:20)
[2020-11-01] MEDS: INSULIN (NOVOLOG) ASPART 100 UNITS/ML 10ML VIAL SQ SCH ×3 (11:57→22:44)
[2020-11-01] MEDS ORDERED: MASKS NR ONE (14:39)
[2020-11-01] MEDS: ROSUVASTATIN CA 20 MG TABLET PO SCH (22:41)
[2020-11-01] MEDS: THIAMINE HCL 100 MG TABLET (FP) PO SCH (22:42)
[2020-11-01] MEDS: MELATONIN 5 MG TABLETS PO SCH (22:43)
[2020-11-02] MEDS ORDERED: LORazepam 0.5 MG TABLET PO PRN
[2020-11-02] MEDS ORDERED: LORazepam 0.5 MG TABLET PO SCH (05:00)
[2020-11-02] MEDS ORDERED: INSULIN (NOVOLOG) ASPART 100 UNITS/ML 10ML VIAL ONE (07:03)
[2020-11-02] MEDS: INSULIN (NOVOLOG) ASPART 100 UNITS/ML 10ML VIAL SQ SCH (07:34)
[2020-11-02] MEDS: metFORMIN HCL 500 MG TABLET (FP) PO SCH (07:47)
[2020-11-02 08:57] VITALS: BP 154/84; PULSE 94; TEMP 97.7
[2020-11-02] MEDS: GABAPENTIN 100 MG CAPSULE PO SCH (09:27)
[2020-11-02] MEDS: PRENATAL VITAMINS W/ FOLIC ACID TABLET (FP) PO SCH (09:27)
[2020-11-02] MEDS: NIFEdipine E.R 60 MG TABLET PO SCH (09:27)
[2020-11-03] MEDS ORDERED: LORazepam 0.5 MG TABLET PO ONE (05:00)
== END 2020-11-02 09:53 | disposition home or self-care (01) | DRG 897 ==
LOC: YASAS 11:34 → Y6N 15:01
PROVIDERS: ADMIT Allergy & Immunology; ATTEND Allergy & Immunology
PROC: HZ2ZZZZ Detoxification Services for Substance Abuse Treatment (ICD-10-PCS; principal; 2020-10-30)
DX: F10.230 Alcohol dependence with withdrawal, uncomplicated (principal); F19.282 Other psychoactive substance dependence with psychoactive substance-induced sleep disorder; F10.282 Alcohol dependence with alcohol-induced sleep disorder; F12.20 Cannabis dependence, uncomplicated; F13.10 Sedative, hypnotic or anxiolytic abuse, uncomplicated; I10 Essential (primary) hypertension; E11.9 Type 2 diabetes mellitus without complications; E78.5 Hyperlipidemia, unspecified; E66.9 Obesity, unspecified; Z68.31 Body mass index [BMI] 31.0-31.9, adult; Z88.8 Allergy status to other drugs, medicaments and biological substances; Z79.84 Long term (current) use of oral hypoglycemic drugs; Z87.438 Personal history of other diseases of male genital organs; Z91.011 Allergy to milk products
CPT/HCPCS: 36415; 80053; 82962; 85027; 86780; 93005; 93010; C9803; U0003

== ENCOUNTER 2020-12-29 13:42 | Inpatient (IN) | payer MEDICARE, OTHER ==
[2020-12-29 18:44] VITALS: BMI 31.0
[2020-12-29] MEDS ORDERED: MAGNESIUM HYDROX 2400MG/30ML ORAL SUSPENSION 30 ML CUP PO PRN (21:27)
[2020-12-29] MEDS ORDERED: ACETAMINOPHEN 325 MG TABLET (FP) PO PRN (21:27)
[2020-12-29] MEDS ORDERED: MAG HYDROX/AL HYDROX/SIMETH 30 ML UNIT-DOSE CUP PO PRN (21:27)
[2020-12-29] MEDS ORDERED: MAGNESIUM CITRATE 300 ML BOTTLE PO PRN (21:27)
[2020-12-29] MEDS ORDERED: LOPERAMIDE HCL 2 MG CAPSULE PO PRN (21:27)
[2020-12-29] MEDS ORDERED: IBUPROFEN 400 MG TABLET (FP) PO PRN (21:27)
[2020-12-29] MEDS ORDERED: P-EPHED 60MG/TRIPROLIDI 2.5MG TABLET PO PRN (21:27)
[2020-12-29] MEDS ORDERED: guaiFENesin 200 MG/10 ML 10 ML UNIT-DOSE CUPS PO PRN (21:27)
[2020-12-29] MEDS ORDERED: COLLOIDAL OATMEAL 1 BAR EACH TP PRN (21:40)
[2020-12-29] MEDS ORDERED: CALAMINE 8% TOPICAL LOTION 177 ML BOTTLE TP PRN (21:44)
[2020-12-29] MEDS ORDERED: INSULIN (NOVOLOG) ASPART 100 UNITS/ML 10ML VIAL SQ ONE (22:00)
[2020-12-29] MEDS ORDERED: ROSUVASTATIN CA 10 MG TABLET (FP) ONE (22:28)
[2020-12-29] MEDS: ROSUVASTATIN CA 20 MG TABLET (FP) PO SCH (22:39)
[2020-12-29] MEDS: THIAMINE HCL 100 MG TABLET (FP) PO SCH (22:41)
[2020-12-30] MEDS: NIFEdipine E.R. 30 MG TABLET PO SCH (10:38)
[2020-12-30] MEDS: PRENATAL VITAMINS W/ FOLIC ACID TABLET (FP) PO SCH (10:38)
[2020-12-30] MEDS: GABAPENTIN 100 MG CAPSULE PO SCH ×2 (10:40→21:43)
[2020-12-30 11:17] LABS: POTASSIUM 3.9 mmol/L (3.5-5.1)
[2020-12-30 11:29] LABS: ALBUMIN 3.8 g/dl (3.4-5.0); CALCIUM 8.9 mg/dL (8.5-10.1)
[2020-12-30 11:32] LABS: CREATININE 0.8 mg/dL (0.55-1.3)
[2020-12-30 11:33] LABS: BILIRUBIN,TOTAL 0.6 mg/dL (0.2-1); TOT PROT 7.1 g/dl (6.4-8.2)
[2020-12-30 11:36] LABS: HEMOGLOBIN 14.2 GM/dL (11.7-16.9); MCH 30.2 pg (25.7-33.7); MCHC 34.7 g/dl (32.0-35.9); MEAN PLT VOLUME 9.7 fl (7.5-11.1); PLATELET COUNT 196 K/MM3 (134-434); RBC 4.71 M/mm3 (4.00-5.60); RDW 13.6 % (11.9-15.9)
[2020-12-30] MEDS ORDERED: ROSUVASTATIN CA 10 MG TABLET (FP) ONE (19:50)
[2020-12-30] MEDS: ROSUVASTATIN CA 20 MG TABLET (FP) PO SCH (21:43)
[2020-12-30] MEDS: THIAMINE HCL 100 MG TABLET (FP) PO SCH (21:44)
[2020-12-30] MEDS ORDERED: INSULIN SLIDING SCALE (NOVOLOG) 1 VIAL SQ ONE (21:53)
[2020-12-31 07:00] VITALS: BP 140/95; PULSE 85; TEMP 97.8
[2020-12-31] MEDS: GABAPENTIN 100 MG CAPSULE PO SCH (10:15)
[2020-12-31] MEDS: NIFEdipine E.R. 30 MG TABLET PO SCH (10:15)
[2020-12-31] MEDS: PRENATAL VITAMINS W/ FOLIC ACID TABLET (FP) PO SCH (10:15)
[2020-12-31] MEDS ORDERED: PERMETHRIN 5% TOPICAL CREAM 60 GM TUBE TP ONE (12:00)
[2020-12-31] MEDS ORDERED: INSULIN SLIDING SCALE (NOVOLOG) 1 VIAL SQ SCH (16:30)
[2020-12-31] MEDS ORDERED: DOCUSATE SODIUM 100 MG CAPSULE (FP) PO SCH (22:00)
== END 2020-12-31 16:10 | disposition left against medical advice (07) | DRG 894 ==
LOC: YASAS 13:42 → Y5N 20:03
PROVIDERS: ADMIT Allergy & Immunology; ATTEND Allergy & Immunology
PROC: HZ42ZZZ Group Counseling for Substance Abuse Treatment, Cognitive-Behavioral (ICD-10-PCS; principal; 2020-12-29)
DX: F10.20 Alcohol dependence, uncomplicated (principal); F13.20 Sedative, hypnotic or anxiolytic dependence, uncomplicated; F19.282 Other psychoactive substance dependence with psychoactive substance-induced sleep disorder; F19.280 Other psychoactive substance dependence with psychoactive substance-induced anxiety disorder; F12.20 Cannabis dependence, uncomplicated; F41.1 Generalized anxiety disorder; I10 Essential (primary) hypertension; E78.5 Hyperlipidemia, unspecified; E11.9 Type 2 diabetes mellitus without complications; Z79.84 Long term (current) use of oral hypoglycemic drugs; B86 Scabies; R21 Rash and other nonspecific skin eruption; E66.9 Obesity, unspecified; Z68.31 Body mass index [BMI] 31.0-31.9, adult; Z86.19 Personal history of other infectious and parasitic diseases; Z87.891 Personal history of nicotine dependence; Z88.8 Allergy status to other drugs, medicaments and biological substances; Z91.011 Allergy to milk products
CPT/HCPCS: 36415; 80053; 82962; 85027; 86780; 93005; 93010; C9803; U0003

== ENCOUNTER 2021-01-22 10:49 | Inpatient (IN) | payer MEDICARE, OTHER ==
[2021-01-22 11:23] VITALS: BMI 31.8
[2021-01-22] MEDS ORDERED: NICOTINE POLACRILEX 2 MG GUM BUC PRN (12:16)
[2021-01-22] MEDS ORDERED: BISMUTH SUBSALICYLATE 524 MG/30 ML UD PO PRN (12:16)
[2021-01-22] MEDS ORDERED: MENTHOL/PHENOL 1 EACH UD MM PRN (12:16)
[2021-01-22] MEDS ORDERED: MAGNESIUM HYDROX 2400MG/30ML ORAL SUSPENSION 30 ML CUP PO PRN (12:16)
[2021-01-22] MEDS ORDERED: ACETAMINOPHEN 325 MG TABLET (FP) PO PRN ×2 (12:16)
[2021-01-22] MEDS ORDERED: ONDANSETRON *ODT* 4 MG TABLET SL PRN (12:16)
[2021-01-22] MEDS ORDERED: MAG HYDROX/AL HYDROX/SIMETH 30 ML UNIT-DOSE CUP PO PRN (12:16)
[2021-01-22] MEDS ORDERED: chlordiazePOXIDE HCL 25 MG CAPSULE PO PRN (12:16)
[2021-01-22] MEDS ORDERED: METHOCARBAMOL 500 MG TABLET PO PRN (12:16)
[2021-01-22] MEDS ORDERED: MAGNESIUM CITRATE 300 ML BOTTLE PO PRN (12:16)
[2021-01-22] MEDS ORDERED: IBUPROFEN 400 MG TABLET (FP) PO PRN (12:16)
[2021-01-22] MEDS ORDERED: chlordiazePOXIDE HCL 25 MG CAPSULE PO ONE (12:45)
[2021-01-22] MEDS ORDERED: INSULIN REGULAR HUMAN 100 UNITS/ML *VIAL SQ ONE (12:54)
[2021-01-22] MEDS ORDERED: INSULIN (NOVOLOG) ASPART 100 UNITS/ML 10ML VIAL SQ ONE (13:08)
[2021-01-22] MEDS: NYSTATIN 100,000 UNIT/GM TOPICAL CREAM 15 GM TUBE TP SCH ×2 (14:08→22:07)
[2021-01-22] MEDS: NIFEdipine E.R. 30 MG TABLET PO SCH (14:08)
[2021-01-22] MEDS: chlordiazePOXIDE HCL 25 MG CAPSULE PO SCH ×2 (17:14→22:07)
[2021-01-22] MEDS: INSULIN SLIDING SCALE (NOVOLOG) 1 VIAL SQ SCH (17:16)
[2021-01-22] MEDS ORDERED: MELATONIN 5 MG TABLETS PO SCH (22:00)
[2021-01-22] MEDS: GABAPENTIN 100 MG CAPSULE PO SCH (22:06)
[2021-01-22] MEDS: ROSUVASTATIN CA 20 MG TABLET (FP) PO SCH (22:06)
[2021-01-22] MEDS: THIAMINE HCL 100 MG TABLET (FP) PO SCH (22:07)
[2021-01-23] MEDS: chlordiazePOXIDE HCL 25 MG CAPSULE PO SCH ×4 (05:24→22:13)
[2021-01-23] MEDS: INSULIN SLIDING SCALE (NOVOLOG) 1 VIAL SQ SCH ×2 (07:24→17:25)
[2021-01-23] MEDS ORDERED: PARoxetine HCL 20 MG TABLET PO SCH (10:00)
[2021-01-23] MEDS: NYSTATIN 100,000 UNIT/GM TOPICAL CREAM 15 GM TUBE TP SCH ×2 (10:15→22:16)
[2021-01-23] MEDS: PRENATAL VITAMINS W/ FOLIC ACID TABLET (FP) PO SCH (10:15)
[2021-01-23] MEDS: GABAPENTIN 100 MG CAPSULE PO SCH ×2 (10:15→22:14)
[2021-01-23] MEDS: NIFEdipine E.R. 30 MG TABLET PO SCH (10:16)
[2021-01-23 11:30] LABS: HEMATOCRIT 46.6 % (35.4-49); HEMOGLOBIN 16.2 GM/dL (11.7-16.9); MCH 30.3 pg (25.7-33.7); MCHC 34.7 g/dl (32.0-35.9); MEAN CELL VOLUME 87.2 fl (80-96); MEAN PLT VOLUME 9.8 fl (7.5-11.1); PLATELET COUNT 221 K/MM3 (134-434); RBC 5.34 M/mm3 (4.00-5.60); RDW 13.9 % (11.9-15.9); WHITE BLOOD COUNT 6.3 K/mm3 (4.0-10.0)
[2021-01-23 11:35] LABS: BLOOD UREA NITROGEN 8.2 mg/dL (7-18); CALCIUM 9.4 mg/dL (8.5-10.1)
[2021-01-23 11:36] LABS: ALBUMIN 4.2 g/dl (3.4-5.0)
[2021-01-23 11:39] LABS: CREATININE 0.8 mg/dL (0.55-1.3)
[2021-01-23 11:41] LABS: BILIRUBIN,TOTAL 1.1 mg/dL (0.2-1); TOT PROT 7.9 g/dl (6.4-8.2)
[2021-01-23] MEDS: THIAMINE HCL 100 MG TABLET (FP) PO SCH (22:13)
[2021-01-23] MEDS: ROSUVASTATIN CA 20 MG TABLET (FP) PO SCH (22:16)
[2021-01-24] MEDS: chlordiazePOXIDE HCL 25 MG CAPSULE PO SCH ×4 (06:07→23:03)
[2021-01-24] MEDS: INSULIN SLIDING SCALE (NOVOLOG) 1 VIAL SQ SCH ×2 (07:27→17:52)
[2021-01-24] MEDS: NYSTATIN 100,000 UNIT/GM TOPICAL CREAM 15 GM TUBE TP SCH ×2 (10:08→23:04)
[2021-01-24] MEDS: GABAPENTIN 100 MG CAPSULE PO SCH ×2 (10:09→23:06)
[2021-01-24] MEDS: PRENATAL VITAMINS W/ FOLIC ACID TABLET (FP) PO SCH (10:09)
[2021-01-24] MEDS: NIFEdipine E.R. 30 MG TABLET PO SCH (10:09)
[2021-01-24] MEDS: metFORMIN HCL 500 MG TABLET (FP) PO SCH (17:46)
[2021-01-24] MEDS: ROSUVASTATIN CA 20 MG TABLET (FP) PO SCH (23:03)
[2021-01-24] MEDS: INSULIN (NOVOLOG) ASPART 100 UNITS/ML 10ML VIAL SQ SCH (23:04)
[2021-01-24] MEDS: THIAMINE HCL 100 MG TABLET (FP) PO SCH (23:06)
[2021-01-24] MEDS ORDERED: INSULIN SLIDING SCALE (NOVOLOG) 1 VIAL SQ ONE (23:20)
[2021-01-25] MEDS ORDERED: chlordiazePOXIDE HCL 10 MG CAPSULE PO PRN
[2021-01-25] MEDS: chlordiazePOXIDE HCL 10 MG CAPSULE PO SCH ×4 (05:35→22:37)
[2021-01-25] MEDS ORDERED: INSULIN SLIDING SCALE (NOVOLOG) 1 VIAL SQ ONE ×3 (06:39→17:09)
[2021-01-25] MEDS: metFORMIN HCL 500 MG TABLET (FP) PO SCH ×2 (07:03→17:10)
[2021-01-25] MEDS: INSULIN (NOVOLOG) ASPART 100 UNITS/ML 10ML VIAL SQ SCH ×4 (07:04→22:41)
[2021-01-25] MEDS: NIFEdipine E.R. 30 MG TABLET PO SCH (10:27)
[2021-01-25] MEDS: GABAPENTIN 100 MG CAPSULE PO SCH ×2 (10:27→22:37)
[2021-01-25] MEDS: PRENATAL VITAMINS W/ FOLIC ACID TABLET (FP) PO SCH (10:27)
[2021-01-25] MEDS: NYSTATIN 100,000 UNIT/GM TOPICAL CREAM 15 GM TUBE TP SCH ×2 (10:29→22:38)
[2021-01-25] MEDS: ROSUVASTATIN CA 20 MG TABLET (FP) PO SCH (22:37)
[2021-01-25] MEDS: THIAMINE HCL 100 MG TABLET (FP) PO SCH (22:43)
[2021-01-26] MEDS: chlordiazePOXIDE HCL 10 MG CAPSULE PO SCH ×2 (05:38→18:20)
[2021-01-26] MEDS: INSULIN (NOVOLOG) ASPART 100 UNITS/ML 10ML VIAL SQ SCH ×4 (06:50→22:58)
[2021-01-26] MEDS: metFORMIN HCL 500 MG TABLET (FP) PO SCH ×2 (06:50→18:20)
[2021-01-26] MEDS ORDERED: INSULIN SLIDING SCALE (NOVOLOG) 1 VIAL SQ ONE ×2 (07:19→12:16)
[2021-01-26] MEDS: GABAPENTIN 100 MG CAPSULE PO SCH ×2 (10:20→23:04)
[2021-01-26] MEDS: PRENATAL VITAMINS W/ FOLIC ACID TABLET (FP) PO SCH (10:21)
[2021-01-26] MEDS: NYSTATIN 100,000 UNIT/GM TOPICAL CREAM 15 GM TUBE TP SCH ×2 (10:22→23:22)
[2021-01-26] MEDS: NIFEdipine E.R. 30 MG TABLET PO SCH (10:23)
[2021-01-26] MEDS: THIAMINE HCL 100 MG TABLET (FP) PO SCH (23:03)
[2021-01-26] MEDS: ROSUVASTATIN CA 20 MG TABLET (FP) PO SCH (23:03)
[2021-01-27] MEDS ORDERED: chlordiazePOXIDE HCL 10 MG CAPSULE PO ONE (05:00)
[2021-01-27 06:31] VITALS: BP 138/74; PULSE 79; TEMP 96.6
[2021-01-27] MEDS: INSULIN (NOVOLOG) ASPART 100 UNITS/ML 10ML VIAL SQ SCH (07:11)
[2021-01-27] MEDS ORDERED: INSULIN SLIDING SCALE (NOVOLOG) 1 VIAL SQ ONE (07:13)
[2021-01-27] MEDS: metFORMIN HCL 500 MG TABLET (FP) PO SCH (07:18)
== END 2021-01-27 09:18 | disposition home or self-care (01) | DRG 897 ==
LOC: YASAS 10:49 → Y3N 12:43
PROVIDERS: ADMIT Allergy & Immunology; ATTEND Allergy & Immunology
PROC: HZ2ZZZZ Detoxification Services for Substance Abuse Treatment (ICD-10-PCS; principal; 2021-01-22)
DX: F10.230 Alcohol dependence with withdrawal, uncomplicated (principal); F19.282 Other psychoactive substance dependence with psychoactive substance-induced sleep disorder; F19.280 Other psychoactive substance dependence with psychoactive substance-induced anxiety disorder; F12.20 Cannabis dependence, uncomplicated; F17.210 Nicotine dependence, cigarettes, uncomplicated; F19.24 Other psychoactive substance dependence with psychoactive substance-induced mood disorder; F10.282 Alcohol dependence with alcohol-induced sleep disorder; F51.05 Insomnia due to other mental disorder; F41.1 Generalized anxiety disorder; I10 Essential (primary) hypertension; E11.9 Type 2 diabetes mellitus without complications; Z79.84 Long term (current) use of oral hypoglycemic drugs; E78.5 Hyperlipidemia, unspecified; K00.0 Anodontia; L85.3 Xerosis cutis; R21 Rash and other nonspecific skin eruption; Z86.19 Personal history of other infectious and parasitic diseases; Z91.011 Allergy to milk products; Z88.8 Allergy status to other drugs, medicaments and biological substances; E66.9 Obesity, unspecified; Z68.31 Body mass index [BMI] 31.0-31.9, adult
CPT/HCPCS: 36415; 80053; 82962; 85027; 86780; C9803; U0003

== ENCOUNTER 2021-06-06 09:42 | Inpatient (IN) | payer OTHER ==
[2021-06-06 10:16] VITALS: BMI 32.1
[2021-06-06] MEDS ORDERED: MENTHOL/PHENOL 1 EACH UD MM PRN (11:10)
[2021-06-06] MEDS ORDERED: ONDANSETRON *ODT* 4 MG TABLET SL PRN (11:10)
[2021-06-06] MEDS ORDERED: IBUPROFEN 400 MG TABLET (FP) PO PRN (11:10)
[2021-06-06] MEDS ORDERED: MAGNESIUM CITRATE 300 ML BOTTLE PO PRN (11:10)
[2021-06-06] MEDS ORDERED: MAG HYDROX/AL HYDROX/SIMETH 30 ML UNIT-DOSE CUP PO PRN (11:10)
[2021-06-06] MEDS ORDERED: LORazepam 1 MG TABLET PO PRN (11:10)
[2021-06-06] MEDS ORDERED: METHOCARBAMOL 500 MG TABLET PO PRN (11:10)
[2021-06-06] MEDS ORDERED: MAGNESIUM HYDROX 2400MG/30ML ORAL SUSPENSION 30 ML CUP PO PRN (11:10)
[2021-06-06] MEDS ORDERED: BISMUTH SUBSALICYLATE 262 MG/15 ML BTL PO PRN (11:10)
[2021-06-06] MEDS ORDERED: ACETAMINOPHEN 325 MG TABLET (FP) PO PRN ×2 (11:10)
[2021-06-06] MEDS: NIFEdipine E.R. 30 MG TABLET PO SCH (12:54)
[2021-06-06] MEDS: PRENATAL VITAMINS W/ FOLIC ACID TABLET (FP) PO SCH (12:54)
[2021-06-06] MEDS: ASPIRIN 81 MG CHEWABLE TABLETS PO SCH (12:54)
[2021-06-06] MEDS ORDERED: hydrOXYzine PAMOATE 25 MG CAPSULE (FP) PO SCH (14:00)
[2021-06-06 14:55] LABS: HEMATOCRIT 38.3 % (35.4-49); HEMOGLOBIN 13.9 GM/dL (11.7-16.9); MCH 31.4 pg (25.7-33.7); MCHC 36.4 g/dl (32.0-35.9); MEAN CELL VOLUME 86.1 fl (80-96); MEAN PLT VOLUME 9.4 fl (7.5-11.1); PLATELET COUNT 213 10^3/uL (134-434); RBC 4.45 M/mm3 (4.00-5.60); RDW 13.8 % (11.9-15.9); WHITE BLOOD COUNT 5.8 K/mm3 (4.0-10.0)
[2021-06-06 15:02] LABS: ALBUMIN 4.1 g/dl (3.4-5.0); BLOOD UREA NITROGEN 7.4 mg/dL (7-18); CALCIUM 8.4 mg/dL (8.5-10.1)
[2021-06-06 15:05] LABS: CREATININE 0.6 mg/dL (0.55-1.3)
[2021-06-06 15:06] LABS: BILIRUBIN,TOTAL 0.6 mg/dL (0.2-1)
[2021-06-06 15:07] LABS: TOT PROT 7.5 g/dl (6.4-8.2)
[2021-06-06] MEDS ORDERED: hydrOXYzine HCL 10 MG/5 ML LIQUID BULK BOTTLE PO PRN (15:30)
[2021-06-06] MEDS: metFORMIN HCL 500 MG TABLET (FP) PO SCH (17:18)
[2021-06-06] MEDS: LORazepam 2 MG TABLET PO SCH ×2 (18:18→22:35)
[2021-06-06] MEDS ORDERED: MELATONIN 5 MG TABLETS PO SCH (22:00)
[2021-06-06] MEDS ORDERED: hydrOXYzine HCL 10 MG/5 ML LIQUID BULK BOTTLE PO SCH (22:00)
[2021-06-06] MEDS: THIAMINE HCL 100 MG TABLET (FP) PO SCH (22:35)
[2021-06-06] MEDS: ROSUVASTATIN CA 20 MG TABLET (FP) PO SCH (22:35)
[2021-06-06] MEDS: INSULIN (LEVEMIR) 100 UNITS/ML UNITS SQ SCH (22:38)
[2021-06-06] MEDS: hydrOXYzine HCL 10 MG/5 ML LIQUID BULK BOTTLE PO SCH (22:59)
[2021-06-07] MEDS: LORazepam 2 MG TABLET PO SCH ×4 (05:52→22:42)
[2021-06-07] MEDS: metFORMIN HCL 500 MG TABLET (FP) PO SCH ×2 (06:36→17:00)
[2021-06-07] MEDS: ASPIRIN 81 MG CHEWABLE TABLETS PO SCH (10:19)
[2021-06-07] MEDS: PRENATAL VITAMINS W/ FOLIC ACID TABLET (FP) PO SCH (10:19)
[2021-06-07] MEDS: NIFEdipine E.R. 30 MG TABLET PO SCH (10:19)
[2021-06-07] MEDS ORDERED: INSULIN (NOVOLOG) ASPART 100 UNITS/ML 10ML VIAL SQ ONE (11:15)
[2021-06-07] MEDS ORDERED: INSULIN SLIDING SCALE (NOVOLOG) 1 VIAL SQ ONE ×2 (11:16→16:59)
[2021-06-07] MEDS: hydrOXYzine HCL 10 MG/5 ML LIQUID BULK BOTTLE PO SCH ×2 (13:20→23:15)
[2021-06-07] MEDS: INSULIN (NOVOLOG) ASPART 100 UNITS/ML 10ML VIAL SQ SCH ×2 (17:01→22:40)
[2021-06-07] MEDS: THIAMINE HCL 100 MG TABLET (FP) PO SCH (22:39)
[2021-06-07] MEDS: INSULIN (LEVEMIR) 100 UNITS/ML UNITS SQ SCH (22:39)
[2021-06-07] MEDS: ROSUVASTATIN CA 20 MG TABLET (FP) PO SCH (23:15)
[2021-06-08] MEDS ORDERED: INSULIN SLIDING SCALE (NOVOLOG) 1 VIAL SQ ONE ×3 (04:08→17:03)
[2021-06-08] MEDS: LORazepam 1 MG TABLET PO SCH ×4 (05:33→22:52)
[2021-06-08] MEDS: INSULIN (NOVOLOG) ASPART 100 UNITS/ML 10ML VIAL SQ SCH ×4 (06:16→22:42)
[2021-06-08] MEDS: metFORMIN HCL 500 MG TABLET (FP) PO SCH ×2 (06:16→18:19)
[2021-06-08] MEDS: PRENATAL VITAMINS W/ FOLIC ACID TABLET (FP) PO SCH (10:25)
[2021-06-08] MEDS: ASPIRIN 81 MG CHEWABLE TABLETS PO SCH (10:25)
[2021-06-08] MEDS: NIFEdipine E.R. 30 MG TABLET PO SCH (10:25)
[2021-06-08] MEDS: hydrOXYzine HCL 10 MG/5 ML LIQUID BULK BOTTLE PO SCH ×2 (10:29→22:52)
[2021-06-08] MEDS: INSULIN (LEVEMIR) 100 UNITS/ML UNITS SQ SCH (21:42)
[2021-06-08] MEDS: THIAMINE HCL 100 MG TABLET (FP) PO SCH (22:42)
[2021-06-08] MEDS: ROSUVASTATIN CA 20 MG TABLET (FP) PO SCH (22:52)
[2021-06-09] MEDS ORDERED: LORazepam 0.5 MG TABLET PO PRN
[2021-06-09] MEDS: LORazepam 0.5 MG TABLET PO SCH ×4 (06:47→23:30)
[2021-06-09] MEDS: metFORMIN HCL 500 MG TABLET (FP) PO SCH ×2 (06:48→18:14)
[2021-06-09] MEDS: INSULIN (NOVOLOG) ASPART 100 UNITS/ML 10ML VIAL SQ SCH ×4 (06:49→23:31)
[2021-06-09] MEDS: PRENATAL VITAMINS W/ FOLIC ACID TABLET (FP) PO SCH (10:30)
[2021-06-09] MEDS: NIFEdipine E.R. 30 MG TABLET PO SCH (10:30)
[2021-06-09] MEDS: ASPIRIN 81 MG CHEWABLE TABLETS PO SCH (10:30)
[2021-06-09] MEDS: hydrOXYzine HCL 10 MG/5 ML LIQUID BULK BOTTLE PO SCH ×2 (10:35→23:33)
[2021-06-09] MEDS: ROSUVASTATIN CA 20 MG TABLET (FP) PO SCH (23:29)
[2021-06-09] MEDS ORDERED: INSULIN SLIDING SCALE (NOVOLOG) 1 VIAL SQ ONE (23:31)
[2021-06-09] MEDS: INSULIN (LEVEMIR) 100 UNITS/ML UNITS SQ SCH (23:32)
[2021-06-09] MEDS: THIAMINE HCL 100 MG TABLET (FP) PO SCH (23:33)
[2021-06-10] MEDS ORDERED: LORazepam 0.5 MG TABLET PO ONE (05:00)
[2021-06-10] MEDS: metFORMIN HCL 500 MG TABLET (FP) PO SCH ×2 (06:03→16:59)
[2021-06-10] MEDS: INSULIN (NOVOLOG) ASPART 100 UNITS/ML 10ML VIAL SQ SCH ×4 (06:03→21:14)
[2021-06-10] MEDS: PRENATAL VITAMINS W/ FOLIC ACID TABLET (FP) PO SCH (10:43)
[2021-06-10] MEDS: NIFEdipine E.R. 30 MG TABLET PO SCH (10:43)
[2021-06-10] MEDS: ASPIRIN 81 MG CHEWABLE TABLETS PO SCH (10:43)
[2021-06-10] MEDS: hydrOXYzine HCL 10 MG/5 ML LIQUID BULK BOTTLE PO SCH (10:43)
[2021-06-10] MEDS ORDERED: COLLOIDAL OATMEAL 1 BAR EACH TP PRN (15:54)
[2021-06-10] MEDS ORDERED: INSULIN (NOVOLOG) ASPART 100 UNITS/ML 10ML VIAL ONE ×2 (16:57→21:44)
[2021-06-10] MEDS ORDERED: TUBERCULIN PPD 5 TU/0.1ML VIAL ID ONE (17:00)
[2021-06-10] MEDS: MINERAL OIL/PETROLAT/WATER TOPICAL CREAM 113 GM JAR TP SCH (18:28)
[2021-06-10] MEDS: VITAMINS A AND D TOPICAL OINTMENT 60 GM TUBE TP SCH (18:28)
[2021-06-10] MEDS ORDERED: PT OWN MED DRAWER 7, Y5N ONE (21:10)
[2021-06-10] MEDS: ROSUVASTATIN CA 20 MG TABLET (FP) PO SCH (21:10)
[2021-06-10] MEDS: THIAMINE HCL 100 MG TABLET (FP) PO SCH (21:11)
[2021-06-10] MEDS: GABAPENTIN 100 MG CAPSULE PO SCH (21:11)
[2021-06-10] MEDS: INSULIN (LEVEMIR) 100 UNITS/ML UNITS SQ SCH (21:14)
[2021-06-10] MEDS ORDERED: hydrOXYzine PAMOATE 50 MG CAPSULE (FP) PO SCH (22:00)
[2021-06-11] MEDS ORDERED: PT OWN MED DRAWER 7, Y5N ONE ×2 (05:53→08:32)
[2021-06-11] MEDS: metFORMIN HCL 500 MG TABLET (FP) PO SCH ×2 (06:22→17:05)
[2021-06-11] MEDS: GABAPENTIN 100 MG CAPSULE PO SCH ×3 (06:22→21:47)
[2021-06-11] MEDS ORDERED: INSULIN (NOVOLOG) ASPART 100 UNITS/ML 10ML VIAL ONE (07:07)
[2021-06-11] MEDS: INSULIN (NOVOLOG) ASPART 100 UNITS/ML 10ML VIAL SQ SCH ×4 (07:11→21:48)
[2021-06-11] MEDS: NIFEdipine E.R. 30 MG TABLET PO SCH (09:37)
[2021-06-11] MEDS: VITAMINS A AND D TOPICAL OINTMENT 60 GM TUBE TP SCH (09:38)
[2021-06-11] MEDS: PRENATAL VITAMINS W/ FOLIC ACID TABLET (FP) PO SCH (09:38)
[2021-06-11] MEDS: ASPIRIN 81 MG CHEWABLE TABLETS PO SCH (09:38)
[2021-06-11] MEDS: MINERAL OIL/PETROLAT/WATER TOPICAL CREAM 113 GM JAR TP SCH (09:39)
[2021-06-11] MEDS: INSULIN (LEVEMIR) 100 UNITS/ML UNITS SQ SCH (21:40)
[2021-06-11] MEDS: THIAMINE HCL 100 MG TABLET (FP) PO SCH (21:46)
[2021-06-11] MEDS: ROSUVASTATIN CA 20 MG TABLET (FP) PO SCH (21:47)
[2021-06-12] MEDS: GABAPENTIN 100 MG CAPSULE PO SCH ×3 (06:17→22:11)
[2021-06-12] MEDS: metFORMIN HCL 500 MG TABLET (FP) PO SCH ×2 (06:17→16:59)
[2021-06-12] MEDS: INSULIN (NOVOLOG) ASPART 100 UNITS/ML 10ML VIAL SQ SCH ×4 (06:33→22:12)
[2021-06-12] MEDS ORDERED: PT OWN MED DRAWER 7, Y5N ONE ×2 (08:26→20:42)
[2021-06-12] MEDS: ASPIRIN 81 MG CHEWABLE TABLETS PO SCH (09:03)
[2021-06-12] MEDS: PRENATAL VITAMINS W/ FOLIC ACID TABLET (FP) PO SCH (09:03)
[2021-06-12] MEDS: NIFEdipine E.R. 30 MG TABLET PO SCH (09:03)
[2021-06-12] MEDS: MINERAL OIL/PETROLAT/WATER TOPICAL CREAM 113 GM JAR TP SCH (09:04)
[2021-06-12] MEDS: VITAMINS A AND D TOPICAL OINTMENT 60 GM TUBE TP SCH (09:05)
[2021-06-12] MEDS ORDERED: INSULIN (NOVOLOG) ASPART 100 UNITS/ML 10ML VIAL ONE ×2 (12:00→16:54)
[2021-06-12] MEDS: INSULIN (LEVEMIR) 100 UNITS/ML UNITS SQ SCH (22:11)
[2021-06-12] MEDS: THIAMINE HCL 100 MG TABLET (FP) PO SCH (22:11)
[2021-06-12] MEDS: ROSUVASTATIN CA 20 MG TABLET (FP) PO SCH (22:11)
[2021-06-13] MEDS: metFORMIN HCL 500 MG TABLET (FP) PO SCH ×2 (06:27→16:29)
[2021-06-13] MEDS: GABAPENTIN 100 MG CAPSULE PO SCH ×3 (06:27→21:11)
[2021-06-13] MEDS: INSULIN (NOVOLOG) ASPART 100 UNITS/ML 10ML VIAL SQ SCH ×4 (08:03→21:13)
[2021-06-13] MEDS ORDERED: PT OWN MED DRAWER 7, Y5N ONE ×3 (08:55→22:02)
[2021-06-13] MEDS: ASPIRIN 81 MG CHEWABLE TABLETS PO SCH (10:02)
[2021-06-13] MEDS: PRENATAL VITAMINS W/ FOLIC ACID TABLET (FP) PO SCH (10:02)
[2021-06-13] MEDS: NIFEdipine E.R. 30 MG TABLET PO SCH (10:02)
[2021-06-13] MEDS: VITAMINS A AND D TOPICAL OINTMENT 60 GM TUBE TP SCH (10:03)
[2021-06-13] MEDS: MINERAL OIL/PETROLAT/WATER TOPICAL CREAM 113 GM JAR TP SCH (10:03)
[2021-06-13] MEDS ORDERED: INSULIN (NOVOLOG) ASPART 100 UNITS/ML 10ML VIAL ONE (11:45)
[2021-06-13] MEDS: THIAMINE HCL 100 MG TABLET (FP) PO SCH (21:11)
[2021-06-13] MEDS: INSULIN (LEVEMIR) 100 UNITS/ML UNITS SQ SCH (21:11)
[2021-06-13] MEDS: ROSUVASTATIN CA 20 MG TABLET (FP) PO SCH (21:12)
[2021-06-14] MEDS: metFORMIN HCL 500 MG TABLET (FP) PO SCH ×2 (06:20→17:40)
[2021-06-14] MEDS: GABAPENTIN 100 MG CAPSULE PO SCH ×4 (06:20→21:40)
[2021-06-14] MEDS: INSULIN (NOVOLOG) ASPART 100 UNITS/ML 10ML VIAL SQ SCH ×4 (06:21→21:41)
[2021-06-14] MEDS: NIFEdipine E.R. 30 MG TABLET PO SCH (09:33)
[2021-06-14] MEDS: PRENATAL VITAMINS W/ FOLIC ACID TABLET (FP) PO SCH (09:33)
[2021-06-14] MEDS: MINERAL OIL/PETROLAT/WATER TOPICAL CREAM 113 GM JAR TP SCH (09:33)
[2021-06-14] MEDS: ASPIRIN 81 MG CHEWABLE TABLETS PO SCH (09:33)
[2021-06-14] MEDS: VITAMINS A AND D TOPICAL OINTMENT 60 GM TUBE TP SCH (09:34)
[2021-06-14] MEDS ORDERED: INSULIN (NOVOLOG) ASPART 100 UNITS/ML 10ML VIAL ONE (12:08)
[2021-06-14] MEDS: INSULIN (LEVEMIR) 100 UNITS/ML UNITS SQ SCH (21:39)
[2021-06-14] MEDS: ROSUVASTATIN CA 20 MG TABLET (FP) PO SCH (21:40)
[2021-06-14] MEDS: THIAMINE HCL 100 MG TABLET (FP) PO SCH (21:41)
[2021-06-15] MEDS ORDERED: PT OWN MED DRAWER 7, Y5N ONE ×2 (06:00→08:58)
[2021-06-15 06:49] VITALS: TEMP 97.3
[2021-06-15] MEDS: GABAPENTIN 100 MG CAPSULE PO SCH (06:55)
[2021-06-15] MEDS: metFORMIN HCL 500 MG TABLET (FP) PO SCH (06:55)
[2021-06-15] MEDS: INSULIN (NOVOLOG) ASPART 100 UNITS/ML 10ML VIAL SQ SCH ×2 (07:04→11:32)
[2021-06-15] MEDS: MINERAL OIL/PETROLAT/WATER TOPICAL CREAM 113 GM JAR TP SCH (09:59)
[2021-06-15] MEDS: ASPIRIN 81 MG CHEWABLE TABLETS PO SCH (09:59)
[2021-06-15] MEDS: PRENATAL VITAMINS W/ FOLIC ACID TABLET (FP) PO SCH (09:59)
[2021-06-15] MEDS: NIFEdipine E.R. 30 MG TABLET PO SCH (09:59)
[2021-06-15] MEDS: VITAMINS A AND D TOPICAL OINTMENT 60 GM TUBE TP SCH (09:59)
[2021-06-15 10:08] VITALS: BP 132/80; PULSE 90
[2021-06-15] MEDS ORDERED: INSULIN (NOVOLOG) ASPART 100 UNITS/ML 10ML VIAL ONE (11:34)
== END 2021-06-15 13:04 | disposition home or self-care (01) | DRG 895 ==
LOC: YASAS 09:42 → Y3N 10:54 → Y3E 06-10 11:32
PROVIDERS: ADMIT Allergy & Immunology; ATTEND Allergy & Immunology
PROC: HZ42ZZZ Group Counseling for Substance Abuse Treatment, Cognitive-Behavioral (ICD-10-PCS; principal; 2021-06-06)
DX: F10.20 Alcohol dependence, uncomplicated (principal); F10.280 Alcohol dependence with alcohol-induced anxiety disorder; F10.282 Alcohol dependence with alcohol-induced sleep disorder; F12.20 Cannabis dependence, uncomplicated; F41.9 Anxiety disorder, unspecified; I10 Essential (primary) hypertension; E78.5 Hyperlipidemia, unspecified; E11.9 Type 2 diabetes mellitus without complications; E66.9 Obesity, unspecified; Z68.32 Body mass index [BMI] 32.0-32.9, adult; Z88.8 Allergy status to other drugs, medicaments and biological substances; Z87.891 Personal history of nicotine dependence; Z91.011 Allergy to milk products; Z86.19 Personal history of other infectious and parasitic diseases; Z87.438 Personal history of other diseases of male genital organs; Z79.84 Long term (current) use of oral hypoglycemic drugs; Z56.0 Unemployment, unspecified
CPT/HCPCS: 36415; 80053; 82962; 85027; 86780; C9803; Q0162; U0003; U0005

== ENCOUNTER 2021-09-09 11:05 | Inpatient (IN) | payer OTHER ==
[2021-09-09] MEDS ORDERED: MENTHOL/PHENOL 1 EACH UD MM PRN (11:52)
[2021-09-09] MEDS ORDERED: ACETAMINOPHEN 325 MG TABLET (FP) PO PRN ×2 (11:52)
[2021-09-09] MEDS ORDERED: diazePAM 5 MG TABLET PO PRN (11:52)
[2021-09-09] MEDS ORDERED: MAG HYDROX/AL HYDROX/SIMETH 30 ML UNIT-DOSE CUP PO PRN (11:52)
[2021-09-09] MEDS ORDERED: METHOCARBAMOL 500 MG TABLET PO PRN (11:52)
[2021-09-09] MEDS ORDERED: MAGNESIUM HYDROX 2400MG/30ML ORAL SUSPENSION 30 ML CUP PO PRN (11:52)
[2021-09-09] MEDS ORDERED: ONDANSETRON *ODT* 4 MG TABLET SL PRN (11:52)
[2021-09-09] MEDS ORDERED: IBUPROFEN 400 MG TABLET (FP) PO PRN (11:52)
[2021-09-09] MEDS ORDERED: MAGNESIUM CITRATE 300 ML BOTTLE PO PRN (11:52)
[2021-09-09] MEDS ORDERED: BISMUTH SUBSALICYLATE 262 MG/15 ML BTL PO PRN (11:52)
[2021-09-09] MEDS ORDERED: DOCUSATE SODIUM 100 MG CAPSULE (FP) PO PRN (11:55)
[2021-09-09 12:17] VITALS: BMI 31.8
[2021-09-09] MEDS ORDERED: hydrOXYzine PAMOATE 25 MG CAPSULE (FP) PO SCH (14:00)
[2021-09-09] MEDS: diazePAM 5 MG TABLET PO SCH ×3 (14:34→23:05)
[2021-09-09] MEDS: PRENATAL VITAMINS W/ FOLIC ACID TABLET (FP) PO SCH (14:35)
[2021-09-09 14:58] LABS: HEMATOCRIT 41.2 % (35.4-49); HEMOGLOBIN 14.3 GM/dL (11.7-16.9); MCH 30.6 pg (25.7-33.7); MCHC 34.6 g/dl (32.0-35.9); MEAN CELL VOLUME 88.4 fl (80-96); MEAN PLT VOLUME 9.9 fl (7.5-11.1); PLATELET COUNT 206 10^3/uL (134-434); RBC 4.66 M/mm3 (4.00-5.60); RDW 14.1 % (11.9-15.9); WHITE BLOOD COUNT 5.3 K/mm3 (4.0-10.0)
[2021-09-09 15:05] LABS: CHLORIDE 102 mmol/L (98-107); SODIUM 138 mmol/L (136-145)
[2021-09-09 15:21] LABS: ALBUMIN 3.8 g/dl (3.4-5.0)
[2021-09-09 15:23] LABS: ANION GAP 11 MMOL/L (8-16); BLOOD UREA NITROGEN 9.6 mg/dL (7-18); CALCIUM 8.7 mg/dL (8.5-10.1); CO2 25 mmol/L (21-32); SGOT/AST 11 U/L (15-37)
[2021-09-09 15:25] LABS: TOT PROT 7.3 g/dl (6.4-8.2)
[2021-09-09 15:26] LABS: ALK PHOS 79 U/L (45-117); CREATININE 0.8 mg/dL (0.55-1.3); SGPT/ALT 23 U/L (13-61)
[2021-09-09 15:27] LABS: BILIRUBIN,TOTAL 0.4 mg/dL (0.2-1)
[2021-09-09 15:32] LABS: GLUCOSE,RANDOM 497 mg/dL (74-106)
[2021-09-09] MEDS ORDERED: INSULIN (NOVOLOG) ASPART 100 UNITS/ML 10ML VIAL ONE ×2 (16:13→22:46)
[2021-09-09] MEDS: INSULIN SLIDING SCALE (NOVOLOG) 1 VIAL SQ SCH ×2 (16:17→23:06)
[2021-09-09] MEDS ORDERED: INSULIN SLIDING SCALE (NOVOLOG) 1 VIAL SQ SCH (16:30)
[2021-09-09] MEDS ORDERED: MELATONIN 5 MG TABLETS PO SCH (22:00)
[2021-09-09] MEDS: ROSUVASTATIN CA 20 MG TABLET (FP) PO SCH (23:05)
[2021-09-09] MEDS: THIAMINE HCL 100 MG TABLET (FP) PO SCH (23:05)
[2021-09-09] MEDS: HYDROCORTISONE 0.5% TOPICAL CREAM 30 GM TUBE TP PRN (23:10)
[2021-09-10] MEDS ORDERED: INSULIN (NOVOLOG) ASPART 100 UNITS/ML 10ML VIAL ONE ×4 (05:45→22:19)
[2021-09-10] MEDS: diazePAM 5 MG TABLET PO SCH ×4 (05:46→22:31)
[2021-09-10] MEDS: INSULIN SLIDING SCALE (NOVOLOG) 1 VIAL SQ SCH ×4 (06:21→22:34)
[2021-09-10] MEDS ORDERED: MULTIVITAMINS (DAILY MVI) TABLET (FP) PO SCH (10:00)
[2021-09-10] MEDS: PRENATAL VITAMINS W/ FOLIC ACID TABLET (FP) PO SCH (10:39)
[2021-09-10] MEDS: NIFEdipine E.R 60 MG TABLET PO SCH (10:40)
[2021-09-10] MEDS: ASPIRIN 81 MG CHEWABLE TABLETS PO SCH (10:40)
[2021-09-10] MEDS: HYDROCORTISONE 0.5% TOPICAL CREAM 30 GM TUBE TP PRN (10:46)
[2021-09-10] MEDS ORDERED: INSULIN (NOVOLOG) ASPART 100 UNITS/ML 10ML VIAL SQ ONE ×2 (16:45→16:47)
[2021-09-10] MEDS ORDERED: INSULIN (NOVOLOG) ASPART 100 UNITS/ML 10ML VIAL SQ SCH (22:00)
[2021-09-10] MEDS: THIAMINE HCL 100 MG TABLET (FP) PO SCH (22:31)
[2021-09-10] MEDS: ROSUVASTATIN CA 20 MG TABLET (FP) PO SCH (22:35)
[2021-09-11] MEDS: diazePAM 5 MG TABLET PO SCH ×3 (05:24→21:40)
[2021-09-11] MEDS ORDERED: INSULIN (NOVOLOG) ASPART 100 UNITS/ML 10ML VIAL ONE ×4 (05:28→21:43)
[2021-09-11] MEDS: INSULIN SLIDING SCALE (NOVOLOG) 1 VIAL SQ SCH ×4 (07:49→21:45)
[2021-09-11] MEDS: PRENATAL VITAMINS W/ FOLIC ACID TABLET (FP) PO SCH (10:04)
[2021-09-11] MEDS: ASPIRIN 81 MG CHEWABLE TABLETS PO SCH (10:06)
[2021-09-11] MEDS: NIFEdipine E.R 60 MG TABLET PO SCH (15:39)
[2021-09-11 21:35] VITALS: TEMP 97.7
[2021-09-11] MEDS: THIAMINE HCL 100 MG TABLET (FP) PO SCH (21:39)
[2021-09-11] MEDS: ROSUVASTATIN CA 20 MG TABLET (FP) PO SCH (21:40)
[2021-09-12] MEDS ORDERED: diazePAM 5 MG TABLET PO SCH (06:00)
[2021-09-12] MEDS ORDERED: INSULIN (NOVOLOG) ASPART 100 UNITS/ML 10ML VIAL ONE (07:52)
[2021-09-12] MEDS: INSULIN SLIDING SCALE (NOVOLOG) 1 VIAL SQ SCH ×2 (07:55→10:48)
[2021-09-12 09:31] VITALS: BP 133/75; PULSE 104
[2021-09-12] MEDS: ASPIRIN 81 MG CHEWABLE TABLETS PO SCH (10:47)
[2021-09-12] MEDS: PRENATAL VITAMINS W/ FOLIC ACID TABLET (FP) PO SCH (10:47)
[2021-09-12] MEDS: NIFEdipine E.R 60 MG TABLET PO SCH (10:48)
[2021-09-13] MEDS ORDERED: diazePAM 5 MG TABLET PO ONE (06:00)
[2021-09-13] MEDS ORDERED: ROSUVASTATIN CA 20 MG TABLET (FP) PO SCH (22:00)
[2021-09-14] MEDS ORDERED: ASPIRIN 81 MG CHEWABLE TABLETS PO SCH (10:00)
== END 2021-09-12 09:19 | disposition home or self-care (01) | DRG 897 ==
LOC: YASAS 11:05 → Y6N 12:28
PROVIDERS: ADMIT Allergy & Immunology; ATTEND Allergy & Immunology
PROC: HZ2ZZZZ Detoxification Services for Substance Abuse Treatment (ICD-10-PCS; principal; 2021-09-09)
DX: F10.230 Alcohol dependence with withdrawal, uncomplicated (principal); F19.282 Other psychoactive substance dependence with psychoactive substance-induced sleep disorder; F12.20 Cannabis dependence, uncomplicated; F10.282 Alcohol dependence with alcohol-induced sleep disorder; F10.280 Alcohol dependence with alcohol-induced anxiety disorder; F41.9 Anxiety disorder, unspecified; F32.A Depression, unspecified; E78.5 Hyperlipidemia, unspecified; I10 Essential (primary) hypertension; E11.65 Type 2 diabetes mellitus with hyperglycemia; Z79.4 Long term (current) use of insulin; Z87.891 Personal history of nicotine dependence; Z86.19 Personal history of other infectious and parasitic diseases; Z88.8 Allergy status to other drugs, medicaments and biological substances; Z91.011 Allergy to milk products
CPT/HCPCS: 36415; 80053; 82962; 83036; 85027; 86780; C9803; U0003; U0005

== ENCOUNTER 2021-09-13 14:10 | Inpatient (IN) | payer OTHER ==
[2021-09-13 15:19] VITALS: BMI 31.6
[2021-09-13] MEDS ORDERED: MENTHOL/PHENOL 1 EACH UD MM PRN (15:43)
[2021-09-13] MEDS ORDERED: METHOCARBAMOL 500 MG TABLET PO PRN (15:43)
[2021-09-13] MEDS ORDERED: MAGNESIUM CITRATE 300 ML BOTTLE PO PRN (15:43)
[2021-09-13] MEDS ORDERED: ACETAMINOPHEN 325 MG TABLET (FP) PO PRN ×2 (15:43)
[2021-09-13] MEDS ORDERED: MAGNESIUM HYDROX 2400MG/30ML ORAL SUSPENSION 30 ML CUP PO PRN (15:43)
[2021-09-13] MEDS ORDERED: IBUPROFEN 400 MG TABLET (FP) PO PRN (15:43)
[2021-09-13] MEDS ORDERED: NICOTINE 10 MG CARTRIDGE (INHALER) IH PRN (15:43)
[2021-09-13] MEDS ORDERED: ONDANSETRON *ODT* 4 MG TABLET SL PRN (15:43)
[2021-09-13] MEDS ORDERED: BISMUTH SUBSALICYLATE 524 MG/30 ML PO PRN (15:43)
[2021-09-13] MEDS ORDERED: MAG HYDROX/AL HYDROX/SIMETH 30 ML UNIT-DOSE CUP PO PRN (15:43)
[2021-09-13] MEDS: hydrOXYzine PAMOATE 25 MG CAPSULE (FP) PO SCH ×2 (19:17→22:22)
[2021-09-13] MEDS: MELATONIN 5 MG TABLETS PO SCH (22:22)
[2021-09-13] MEDS: THIAMINE HCL 100 MG TABLET (FP) PO SCH (22:23)
[2021-09-14] MEDS: hydrOXYzine PAMOATE 25 MG CAPSULE (FP) PO SCH ×4 (06:24→18:24)
[2021-09-14] MEDS ORDERED: PT OWN MED DRAWER 7, Y5N ONE (06:28)
[2021-09-14] MEDS ORDERED: sitaGLIPtin PHOSPHATE 50 MG TABLET PO SCH (07:00)
[2021-09-14] MEDS: PRENATAL VITAMINS W/ FOLIC ACID TABLET (FP) PO SCH (10:20)
[2021-09-14] MEDS: NIFEdipine E.R 60 MG TABLET PO SCH (11:18)
[2021-09-15] MEDS: MELATONIN 5 MG TABLETS PO SCH
[2021-09-15] MEDS: THIAMINE HCL 100 MG TABLET (FP) PO SCH
[2021-09-15] MEDS: hydrOXYzine PAMOATE 25 MG CAPSULE (FP) PO SCH ×5 (06:25→17:45)
[2021-09-15] MEDS ORDERED: INSULIN SLIDING SCALE (NOVOLOG) 1 VIAL SQ ONE (06:30)
[2021-09-15] MEDS ORDERED: INSULIN (NOVOLOG) ASPART 100 UNITS/ML 10ML VIAL ONE ×2 (06:42→12:00)
[2021-09-15 08:25] VITALS: TEMP 97.2
[2021-09-15] MEDS: PRENATAL VITAMINS W/ FOLIC ACID TABLET (FP) PO SCH (09:30)
[2021-09-15] MEDS: NIFEdipine E.R 60 MG TABLET PO SCH (09:31)
[2021-09-15 11:25] VITALS: BP 149/99; PULSE 105
[2021-09-15] MEDS: INSULIN SLIDING SCALE (NOVOLOG) 1 VIAL SQ SCH ×2 (11:58→16:46)
== END 2021-09-15 20:15 | disposition left against medical advice (07) | DRG 894 ==
LOC: YASAS 14:10 → Y5N 16:50
PROVIDERS: ADMIT Allergy & Immunology; ATTEND Allergy & Immunology
PROC: HZ42ZZZ Group Counseling for Substance Abuse Treatment, Cognitive-Behavioral (ICD-10-PCS; principal; 2021-09-13)
DX: F10.20 Alcohol dependence, uncomplicated (principal); F12.10 Cannabis abuse, uncomplicated; F10.282 Alcohol dependence with alcohol-induced sleep disorder; F10.280 Alcohol dependence with alcohol-induced anxiety disorder; F41.8 Other specified anxiety disorders; F32.A Depression, unspecified; E11.65 Type 2 diabetes mellitus with hyperglycemia; Z79.84 Long term (current) use of oral hypoglycemic drugs; I10 Essential (primary) hypertension; E78.5 Hyperlipidemia, unspecified; Z87.891 Personal history of nicotine dependence; Z86.19 Personal history of other infectious and parasitic diseases; Z88.8 Allergy status to other drugs, medicaments and biological substances; Z91.011 Allergy to milk products
CPT/HCPCS: 82962

== ENCOUNTER 2021-10-06 12:12 | Inpatient (IN) | payer OTHER ==
[2021-10-06] MEDS ORDERED: METHOCARBAMOL 500 MG TABLET PO PRN (14:11)
[2021-10-06] MEDS ORDERED: MENTHOL/PHENOL 1 EACH UD MM PRN (14:11)
[2021-10-06] MEDS ORDERED: BISMUTH SUBSALICYLATE 262 MG/15 ML BTL PO PRN (14:11)
[2021-10-06] MEDS ORDERED: chlordiazePOXIDE HCL 25 MG CAPSULE PO PRN (14:11)
[2021-10-06] MEDS ORDERED: MAGNESIUM CITRATE 300 ML BOTTLE PO PRN (14:11)
[2021-10-06] MEDS ORDERED: NICOTINE 10 MG CARTRIDGE (INHALER) IH PRN (14:11)
[2021-10-06] MEDS ORDERED: MAGNESIUM HYDROX 2400MG/30ML ORAL SUSPENSION 30 ML CUP PO PRN (14:11)
[2021-10-06] MEDS ORDERED: ONDANSETRON *ODT* 4 MG TABLET SL PRN (14:11)
[2021-10-06] MEDS ORDERED: MAG HYDROX/AL HYDROX/SIMETH 30 ML UNIT-DOSE CUP PO PRN (14:11)
[2021-10-06] MEDS ORDERED: IBUPROFEN 400 MG TABLET (FP) PO PRN (14:11)
[2021-10-06] MEDS ORDERED: ACETAMINOPHEN 325 MG TABLET (FP) PO PRN ×2 (14:11)
[2021-10-06 14:20] VITALS: BMI 31.9
[2021-10-06] MEDS: PRENATAL VITAMINS W/ FOLIC ACID TABLET (FP) PO SCH (15:20)
[2021-10-06] MEDS: NICOTINE 14 MG/24 HOURS TOPICAL PATCH TD SCH (15:20)
[2021-10-06] MEDS: chlordiazePOXIDE HCL 25 MG CAPSULE PO SCH ×2 (17:51→22:44)
[2021-10-06] MEDS: hydrOXYzine PAMOATE 25 MG CAPSULE (FP) PO SCH ×2 (17:51→22:46)
[2021-10-06] MEDS: THIAMINE HCL 100 MG TABLET (FP) PO SCH (22:44)
[2021-10-06] MEDS: MELATONIN 5 MG TABLETS PO SCH (22:44)
[2021-10-06] MEDS: GABAPENTIN 100 MG CAPSULE PO SCH (22:44)
[2021-10-07] MEDS: GABAPENTIN 100 MG CAPSULE PO SCH ×3 (05:11→23:04)
[2021-10-07] MEDS: hydrOXYzine PAMOATE 25 MG CAPSULE (FP) PO SCH ×6 (05:11→23:00)
[2021-10-07] MEDS: chlordiazePOXIDE HCL 25 MG CAPSULE PO SCH ×4 (05:11→23:01)
[2021-10-07] MEDS ORDERED: INSULIN SLIDING SCALE (NOVOLOG) 1 VIAL SQ SCH (07:00)
[2021-10-07] MEDS: PRENATAL VITAMINS W/ FOLIC ACID TABLET (FP) PO SCH (10:24)
[2021-10-07] MEDS: NIFEdipine E.R 60 MG TABLET PO SCH (10:24)
[2021-10-07] MEDS: NICOTINE 14 MG/24 HOURS TOPICAL PATCH TD SCH (10:26)
[2021-10-07 11:52] LABS: ALBUMIN 3.4 g/dl (3.4-5.0)
[2021-10-07 11:53] LABS: BLOOD UREA NITROGEN 7.4 mg/dL (7-18); HEMATOCRIT 43.2 % (35.4-49); MCH 30.7 pg (25.7-33.7); MCHC 34.8 g/dl (32.0-35.9); MEAN CELL VOLUME 88.1 fl (80-96); MEAN PLT VOLUME 9.7 fl (7.5-11.1); PLATELET COUNT 188 10^3/uL (134-434); RDW 14.2 % (11.9-15.9); WHITE BLOOD COUNT 4.5 K/mm3 (4.0-10.0)
[2021-10-07 11:56] LABS: CREATININE 0.6 mg/dL (0.55-1.3)
[2021-10-07 11:57] LABS: BILIRUBIN,TOTAL 0.5 mg/dL (0.2-1); TOT PROT 6.9 g/dl (6.4-8.2)
[2021-10-07] MEDS ORDERED: Insulin (LOG) Aspart 100 UNITS/ML VIAL SQ ONE (19:16)
[2021-10-07] MEDS: THIAMINE HCL 100 MG TABLET (FP) PO SCH (23:00)
[2021-10-07] MEDS: MELATONIN 5 MG TABLETS PO SCH (23:07)
[2021-10-08] MEDS: GABAPENTIN 100 MG CAPSULE PO SCH ×3 (05:13→22:46)
[2021-10-08] MEDS: hydrOXYzine PAMOATE 25 MG CAPSULE (FP) PO SCH ×5 (05:13→22:46)
[2021-10-08] MEDS: chlordiazePOXIDE HCL 25 MG CAPSULE PO SCH ×4 (05:13→22:46)
[2021-10-08] MEDS: INSULIN SLIDING SCALE (NOVOLOG) 1 VIAL SQ SCH ×2 (06:49→17:15)
[2021-10-08] MEDS ORDERED: INSULIN SLIDING SCALE (NOVOLOG) 1 VIAL SQ SCH (07:00)
[2021-10-08] MEDS: NICOTINE 14 MG/24 HOURS TOPICAL PATCH TD SCH (10:24)
[2021-10-08] MEDS: PRENATAL VITAMINS W/ FOLIC ACID TABLET (FP) PO SCH (10:25)
[2021-10-08] MEDS: NIFEdipine E.R 60 MG TABLET PO SCH (10:25)
[2021-10-08] MEDS ORDERED: Insulin (LOG) Aspart 100 UNITS/ML VIAL SQ ONE (19:11)
[2021-10-08] MEDS: THIAMINE HCL 100 MG TABLET (FP) PO SCH (22:46)
[2021-10-08] MEDS: MELATONIN 5 MG TABLETS PO SCH (22:46)
[2021-10-09] MEDS ORDERED: chlordiazePOXIDE HCL 10 MG CAPSULE PO PRN
[2021-10-09] MEDS: chlordiazePOXIDE HCL 10 MG CAPSULE PO SCH ×4 (05:24→22:49)
[2021-10-09] MEDS: hydrOXYzine PAMOATE 25 MG CAPSULE (FP) PO SCH ×5 (05:25→22:50)
[2021-10-09] MEDS: GABAPENTIN 100 MG CAPSULE PO SCH ×3 (05:25→22:50)
[2021-10-09] MEDS: INSULIN SLIDING SCALE (NOVOLOG) 1 VIAL SQ SCH ×2 (06:57→16:41)
[2021-10-09] MEDS: NICOTINE 14 MG/24 HOURS TOPICAL PATCH TD SCH (10:21)
[2021-10-09] MEDS: PRENATAL VITAMINS W/ FOLIC ACID TABLET (FP) PO SCH (10:21)
[2021-10-09] MEDS: NIFEdipine E.R 60 MG TABLET PO SCH (10:21)
[2021-10-09] MEDS: THIAMINE HCL 100 MG TABLET (FP) PO SCH (22:50)
[2021-10-09] MEDS: MELATONIN 5 MG TABLETS PO SCH (22:53)
[2021-10-09] MEDS: INSULIN (LEVEMIR) 100 UNITS/ML UNITS SQ SCH (22:53)
[2021-10-10] MEDS: hydrOXYzine PAMOATE 25 MG CAPSULE (FP) PO SCH ×5 (06:27→22:58)
[2021-10-10] MEDS: chlordiazePOXIDE HCL 10 MG CAPSULE PO SCH ×2 (06:27→18:23)
[2021-10-10] MEDS: GABAPENTIN 100 MG CAPSULE PO SCH ×3 (06:27→22:58)
[2021-10-10] MEDS: INSULIN SLIDING SCALE (NOVOLOG) 1 VIAL SQ SCH ×3 (06:32→17:07)
[2021-10-10] MEDS: NICOTINE 14 MG/24 HOURS TOPICAL PATCH TD SCH (10:12)
[2021-10-10] MEDS: PRENATAL VITAMINS W/ FOLIC ACID TABLET (FP) PO SCH (10:13)
[2021-10-10] MEDS: NIFEdipine E.R 60 MG TABLET PO SCH (10:13)
[2021-10-10] MEDS: INSULIN (LEVEMIR) 100 UNITS/ML UNITS SQ SCH (22:57)
[2021-10-10] MEDS: THIAMINE HCL 100 MG TABLET (FP) PO SCH (22:58)
[2021-10-10] MEDS: MELATONIN 5 MG TABLETS PO SCH (22:58)
[2021-10-11] MEDS ORDERED: chlordiazePOXIDE HCL 10 MG CAPSULE PO ONE (05:00)
[2021-10-11 06:29] VITALS: BP 127/84; PULSE 91; TEMP 97.2
[2021-10-11] MEDS: GABAPENTIN 100 MG CAPSULE PO SCH (06:33)
[2021-10-11] MEDS: hydrOXYzine PAMOATE 25 MG CAPSULE (FP) PO SCH (06:33)
[2021-10-11] MEDS: INSULIN SLIDING SCALE (NOVOLOG) 1 VIAL SQ SCH (06:54)
== END 2021-10-11 09:39 | disposition home or self-care (01) | DRG 897 ==
LOC: YASAS 12:12 → Y3N 14:48
PROVIDERS: ADMIT Allergy & Immunology; ATTEND Allergy & Immunology
PROC: HZ2ZZZZ Detoxification Services for Substance Abuse Treatment (ICD-10-PCS; principal; 2021-10-06)
DX: F10.230 Alcohol dependence with withdrawal, uncomplicated (principal); F10.280 Alcohol dependence with alcohol-induced anxiety disorder; F12.20 Cannabis dependence, uncomplicated; F17.210 Nicotine dependence, cigarettes, uncomplicated; F19.24 Other psychoactive substance dependence with psychoactive substance-induced mood disorder; F41.9 Anxiety disorder, unspecified; I10 Essential (primary) hypertension; E11.65 Type 2 diabetes mellitus with hyperglycemia; E78.5 Hyperlipidemia, unspecified; K08.109 Complete loss of teeth, unspecified cause, unspecified class; G47.00 Insomnia, unspecified; E66.9 Obesity, unspecified; Z68.32 Body mass index [BMI] 32.0-32.9, adult; Z91.011 Allergy to milk products; Z91.19 Patient's noncompliance with other medical treatment and regimen; Z87.438 Personal history of other diseases of male genital organs; Z86.19 Personal history of other infectious and parasitic diseases; Z79.4 Long term (current) use of insulin; Z56.0 Unemployment, unspecified; Z59.01 Sheltered homelessness
CPT/HCPCS: 36415; 80053; 82962; 85027; 86780; C9803; U0003; U0005

== ENCOUNTER 2021-10-20 12:17 | Inpatient (IN) | payer OTHER ==
[2021-10-20 13:09] VITALS: BMI 31.8
[2021-10-20] MEDS ORDERED: INSULIN (NOVOLOG) ASPART 100 UNITS/ML 10ML VIAL ONE (14:14)
[2021-10-20] MEDS ORDERED: P-EPHED 60MG/TRIPROLIDI 2.5MG TABLET PO PRN (14:24)
[2021-10-20] MEDS ORDERED: ACETAMINOPHEN 325 MG TABLET (FP) PO PRN (14:24)
[2021-10-20] MEDS ORDERED: MAG HYDROX/AL HYDROX/SIMETH 30 ML UNIT-DOSE CUP PO PRN (14:24)
[2021-10-20] MEDS ORDERED: LOPERAMIDE HCL 2 MG CAPSULE PO PRN (14:24)
[2021-10-20] MEDS ORDERED: MAGNESIUM CITRATE 300 ML BOTTLE PO PRN (14:24)
[2021-10-20] MEDS ORDERED: guaiFENesin 200 MG/10 ML 10 ML UNIT-DOSE CUPS PO PRN (14:24)
[2021-10-20] MEDS ORDERED: IBUPROFEN 400 MG TABLET (FP) PO PRN (14:24)
[2021-10-20] MEDS ORDERED: MAGNESIUM HYDROX 2400MG/30ML ORAL SUSPENSION 30 ML CUP PO PRN (14:24)
[2021-10-20] MEDS ORDERED: INSULIN (NOVOLOG) ASPART 100 UNITS/ML 10ML VIAL SQ ONE (14:28)
[2021-10-20] MEDS: PRENATAL VITAMINS W/ FOLIC ACID TABLET (FP) PO SCH (15:30)
[2021-10-20 16:05] LABS: ALBUMIN 3.7 g/dl (3.4-5.0); CALCIUM 8.6 mg/dL (8.5-10.1)
[2021-10-20 16:06] LABS: BLOOD UREA NITROGEN 7.2 mg/dL (7-18)
[2021-10-20 16:09] LABS: CREATININE 0.8 mg/dL (0.55-1.3); HEMATOCRIT 40.9 % (35.4-49); HEMOGLOBIN 14.3 GM/dL (11.7-16.9); MCH 30.3 pg (25.7-33.7); MCHC 34.9 g/dl (32.0-35.9); MEAN CELL VOLUME 86.6 fl (80-96); MEAN PLT VOLUME 9.4 fl (7.5-11.1); PLATELET COUNT 200 10^3/uL (134-434); RBC 4.73 M/mm3 (4.00-5.60); RDW 14.3 % (11.9-15.9); WHITE BLOOD COUNT 5.3 K/mm3 (4.0-10.0)
[2021-10-20 16:10] LABS: BILIRUBIN,TOTAL 0.7 mg/dL (0.2-1); TOT PROT 7.3 g/dl (6.4-8.2)
[2021-10-20 16:28] LABS: SYPHILIS W/ RPR CONF NON-REACTIVE (NONREACTIVE)
[2021-10-20 16:58] LABS: HIV INTERPRETATION NEGATIVE (NEGATIVE)
[2021-10-20] MEDS: INSULIN SLIDING SCALE (NOVOLOG) 1 VIAL SQ SCH (17:37)
[2021-10-20] MEDS: hydrOXYzine PAMOATE 25 MG CAPSULE (FP) PO SCH ×2 (18:14→21:28)
[2021-10-20] MEDS: THIAMINE HCL 100 MG TABLET (FP) PO SCH (21:28)
[2021-10-20] MEDS: MELATONIN 5 MG TABLETS PO SCH (21:28)
[2021-10-20] MEDS ORDERED: PT OWN MED DRAWER 7, Y5N ONE (22:12)
[2021-10-21] MEDS ORDERED: PT OWN MED DRAWER 7, Y5N ONE ×2 (05:20→08:29)
[2021-10-21] MEDS: INSULIN SLIDING SCALE (NOVOLOG) 1 VIAL SQ SCH ×3 (06:27→16:50)
[2021-10-21] MEDS: hydrOXYzine PAMOATE 25 MG CAPSULE (FP) PO SCH (06:36)
[2021-10-21] MEDS ORDERED: INSULIN (NOVOLOG) ASPART 100 UNITS/ML 10ML VIAL ONE ×2 (07:03→16:49)
[2021-10-21] MEDS ORDERED: hydrOXYzine PAMOATE 25 MG CAPSULE (FP) PO PRN (09:23)
[2021-10-21] MEDS: NIFEdipine E.R 60 MG TABLET PO SCH (09:56)
[2021-10-21] MEDS: PRENATAL VITAMINS W/ FOLIC ACID TABLET (FP) PO SCH (09:56)
[2021-10-21] MEDS: THIAMINE HCL 100 MG TABLET (FP) PO SCH (21:36)
[2021-10-21] MEDS: DOCUSATE SODIUM 100 MG CAPSULE (FP) PO SCH (21:36)
[2021-10-21] MEDS: MELATONIN 5 MG TABLETS PO SCH (21:37)
[2021-10-22] MEDS ORDERED: PT OWN MED DRAWER 7, Y5N ONE (04:18)
[2021-10-22] MEDS: INSULIN SLIDING SCALE (NOVOLOG) 1 VIAL SQ SCH ×3 (07:49→17:27)
[2021-10-22] MEDS ORDERED: INSULIN (NOVOLOG) ASPART 100 UNITS/ML 10ML VIAL ONE ×2 (08:31→19:36)
[2021-10-22] MEDS: DOCUSATE SODIUM 100 MG CAPSULE (FP) PO SCH ×2 (09:35→22:04)
[2021-10-22] MEDS: NIFEdipine E.R 60 MG TABLET PO SCH (09:36)
[2021-10-22] MEDS: PRENATAL VITAMINS W/ FOLIC ACID TABLET (FP) PO SCH (09:36)
[2021-10-22] MEDS: THIAMINE HCL 100 MG TABLET (FP) PO SCH (22:04)
[2021-10-22] MEDS: MELATONIN 5 MG TABLETS PO SCH (22:04)
[2021-10-23] MEDS ORDERED: PT OWN MED DRAWER 7, Y5N ONE (04:19)
[2021-10-23] MEDS: INSULIN SLIDING SCALE (NOVOLOG) 1 VIAL SQ SCH ×3 (06:55→16:56)
[2021-10-23] MEDS: NIFEdipine E.R 60 MG TABLET PO SCH (09:45)
[2021-10-23] MEDS: DOCUSATE SODIUM 100 MG CAPSULE (FP) PO SCH ×2 (09:45→21:12)
[2021-10-23] MEDS: PRENATAL VITAMINS W/ FOLIC ACID TABLET (FP) PO SCH (09:45)
[2021-10-23] MEDS ORDERED: INSULIN (NOVOLOG) ASPART 100 UNITS/ML 10ML VIAL ONE ×2 (11:55→16:56)
[2021-10-23] MEDS: THIAMINE HCL 100 MG TABLET (FP) PO SCH (21:12)
[2021-10-23] MEDS: MELATONIN 5 MG TABLETS PO SCH (21:12)
[2021-10-24] MEDS ORDERED: PT OWN MED DRAWER 7, Y5N ONE (04:25)
[2021-10-24 06:32] VITALS: TEMP 97.1
[2021-10-24] MEDS: INSULIN SLIDING SCALE (NOVOLOG) 1 VIAL SQ SCH (07:40)
[2021-10-24] MEDS ORDERED: INSULIN (NOVOLOG) ASPART 100 UNITS/ML 10ML VIAL ONE (07:56)
[2021-10-24] MEDS: NIFEdipine E.R 60 MG TABLET PO SCH (09:37)
[2021-10-24] MEDS: DOCUSATE SODIUM 100 MG CAPSULE (FP) PO SCH (09:37)
[2021-10-24] MEDS: PRENATAL VITAMINS W/ FOLIC ACID TABLET (FP) PO SCH (09:37)
[2021-10-24 10:52] VITALS: BP 158/94; PULSE 101
== END 2021-10-24 10:15 | disposition left against medical advice (07) | DRG 894 ==
LOC: YASAS 12:17 → Y3E 13:57
PROVIDERS: ADMIT Allergy & Immunology; ATTEND Allergy & Immunology
PROC: HZ42ZZZ Group Counseling for Substance Abuse Treatment, Cognitive-Behavioral (ICD-10-PCS; principal; 2021-10-20)
DX: F10.20 Alcohol dependence, uncomplicated (principal); F19.282 Other psychoactive substance dependence with psychoactive substance-induced sleep disorder; F12.20 Cannabis dependence, uncomplicated; F10.282 Alcohol dependence with alcohol-induced sleep disorder; F10.280 Alcohol dependence with alcohol-induced anxiety disorder; F41.9 Anxiety disorder, unspecified; I10 Essential (primary) hypertension; E11.9 Type 2 diabetes mellitus without complications; E78.5 Hyperlipidemia, unspecified; G47.00 Insomnia, unspecified; E66.9 Obesity, unspecified; Z68.31 Body mass index [BMI] 31.0-31.9, adult; Z87.891 Personal history of nicotine dependence; Z79.4 Long term (current) use of insulin; Z91.011 Allergy to milk products; Z86.19 Personal history of other infectious and parasitic diseases
CPT/HCPCS: 36415; 80053; 81003; 82962; 85027; 86780; 86803; 87389; 87811; C9803; U0003; U0005

== ENCOUNTER 2022-02-16 08:10 | Inpatient (IN) | payer OTHER ==
[2022-02-16] MEDS ORDERED: chlordiazePOXIDE HCL 25 MG CAPSULE PO PRN (10:21)
[2022-02-16] MEDS ORDERED: ONDANSETRON *ODT* 4 MG TABLET SL PRN (10:21)
[2022-02-16] MEDS ORDERED: IBUPROFEN 400 MG TABLET (FP) PO PRN (10:21)
[2022-02-16] MEDS ORDERED: MAGNESIUM CITRATE 300 ML BOTTLE PO PRN (10:21)
[2022-02-16] MEDS ORDERED: ACETAMINOPHEN 325 MG TABLET (FP) PO PRN ×2 (10:21)
[2022-02-16] MEDS ORDERED: BENZOCAINE/MENTHOL (CHLORASEPTIC ) LOZENGE MM PRN (10:21)
[2022-02-16] MEDS ORDERED: METHOCARBAMOL 500 MG TABLET PO PRN (10:21)
[2022-02-16] MEDS ORDERED: NICOTINE 10 MG CARTRIDGE (INHALER) IH PRN (10:21)
[2022-02-16] MEDS ORDERED: BISMUTH SUBSALICYLATE 262 MG/15 ML BTL PO PRN (10:21)
[2022-02-16] MEDS ORDERED: DICYCLOMINE HCL 10 MG CAPSULE PO PRN (10:21)
[2022-02-16] MEDS ORDERED: MAG HYDROX/AL HYDROX/SIMETH 30 ML UNIT-DOSE CUP PO PRN (10:21)
[2022-02-16] MEDS ORDERED: LOPERAMIDE HCL 2 MG CAPSULE PO PRN (10:21)
[2022-02-16] MEDS ORDERED: MAGNESIUM HYDROX 2400MG/30ML ORAL SUSPENSION 30 ML CUP PO PRN (10:21)
[2022-02-16] MEDS ORDERED: INSULIN SLIDING SCALE (NOVOLOG) 1 VIAL SQ ONE (11:42)
[2022-02-16] MEDS ORDERED: INSULIN (NOVOLOG) ASPART 100 UNITS/ML 10ML VIAL ONE ×3 (11:52→22:04)
[2022-02-16] MEDS ORDERED: INSULIN (NOVOLOG) ASPART 100 UNITS/ML 10ML VIAL SQ ONE (12:00)
[2022-02-16] MEDS: PRENATAL VITAMINS W/ FOLIC ACID TABLET (FP) PO SCH (12:50)
[2022-02-16] MEDS ORDERED: hydrOXYzine PAMOATE 25 MG CAPSULE (FP) PO SCH (14:00)
[2022-02-16 14:08] LABS: HEMATOCRIT 42.6 % (35.4-49); HEMOGLOBIN 14.3 GM/dL (11.7-16.9); MCH 30.5 pg (25.7-33.7); MCHC 33.7 g/dl (32.0-35.9); MEAN CELL VOLUME 90.5 fl (80-96); MEAN PLT VOLUME 10.1 fl (7.5-11.1); PLATELET COUNT 198 10^3/uL (134-434); RBC 4.71 M/mm3 (4.00-5.60); RDW 13.5 % (11.9-15.9); WHITE BLOOD COUNT 5.4 K/mm3 (4.0-10.0)
[2022-02-16 14:10] LABS: CHLORIDE 102 mmol/L (98-107); SODIUM 138 mmol/L (136-145)
[2022-02-16 14:13] LABS: CALCIUM 9.2 mg/dL (8.5-10.1)
[2022-02-16 14:14] LABS: ALBUMIN 3.9 g/dl (3.4-5.0); ANION GAP 8 MMOL/L (8-16); BLOOD UREA NITROGEN 11.1 mg/dL (7-18); CO2 28 mmol/L (21-32)
[2022-02-16 14:17] LABS: CREATININE 0.9 mg/dL (0.55-1.3); SGOT/AST 12 U/L (15-37); SGPT/ALT 26 U/L (13-61)
[2022-02-16 14:18] LABS: TOT PROT 7.4 g/dl (6.4-8.2)
[2022-02-16 14:19] LABS: BILIRUBIN,TOTAL 0.4 mg/dL (0.2-1)
[2022-02-16 14:20] LABS: ALK PHOS 94 U/L (45-117)
[2022-02-16 14:25] LABS: GLUCOSE,RANDOM 503 mg/dL (74-106)
[2022-02-16] MEDS: GABAPENTIN 100 MG CAPSULE PO SCH ×2 (14:28→22:32)
[2022-02-16] MEDS ORDERED: INSULIN SLIDING SCALE (NOVOLOG) 1 VIAL SQ SCH (16:30)
[2022-02-16] MEDS: chlordiazePOXIDE HCL 25 MG CAPSULE PO SCH ×2 (17:06→22:32)
[2022-02-16] MEDS: HYDROCORTISONE 0.5% TOPICAL CREAM 30 GM TUBE TP PRN (17:07)
[2022-02-16] MEDS: INSULIN (NOVOLOG) ASPART 100 UNITS/ML 10ML VIAL SQ SCH ×2 (17:08→22:35)
[2022-02-16 18:49] VITALS: BMI 30.8
[2022-02-16] MEDS: diphenhydrAMINE HCL 50 MG CAPSULE PO PRN (22:32)
[2022-02-16] MEDS: THIAMINE HCL 100 MG TABLET (FP) PO SCH (22:32)
[2022-02-16] MEDS: INSULIN (LEVEMIR) 100 UNITS/ML UNITS SQ SCH (22:32)
[2022-02-16] MEDS: DOCUSATE SODIUM 100 MG CAPSULE (FP) PO SCH (22:32)
[2022-02-16] MEDS: MELATONIN 5 MG TABLETS PO SCH (22:44)
[2022-02-17] MEDS: GABAPENTIN 100 MG CAPSULE PO SCH ×3 (05:23→22:39)
[2022-02-17] MEDS: chlordiazePOXIDE HCL 25 MG CAPSULE PO SCH ×4 (05:23→22:39)
[2022-02-17] MEDS: INSULIN (NOVOLOG) ASPART 100 UNITS/ML 10ML VIAL SQ SCH ×4 (07:40→22:43)
[2022-02-17] MEDS ORDERED: INSULIN (NOVOLOG) ASPART 100 UNITS/ML 10ML VIAL ONE ×4 (07:44→21:50)
[2022-02-17] MEDS: NIFEdipine E.R 60 MG TABLET PO SCH (10:18)
[2022-02-17] MEDS: DOCUSATE SODIUM 100 MG CAPSULE (FP) PO SCH ×2 (10:19→22:40)
[2022-02-17] MEDS: HYDROCORTISONE 0.5% TOPICAL CREAM 30 GM TUBE TP PRN (10:19)
[2022-02-17] MEDS: PRENATAL VITAMINS W/ FOLIC ACID TABLET (FP) PO SCH (10:19)
[2022-02-17] MEDS: THIAMINE HCL 100 MG TABLET (FP) PO SCH (22:39)
[2022-02-17] MEDS: diphenhydrAMINE HCL 50 MG CAPSULE PO PRN (22:39)
[2022-02-17] MEDS: INSULIN (LEVEMIR) 100 UNITS/ML UNITS SQ SCH (22:40)
[2022-02-17] MEDS: MELATONIN 5 MG TABLETS PO SCH (22:43)
[2022-02-18] MEDS: GABAPENTIN 100 MG CAPSULE PO SCH ×3 (05:26→23:02)
[2022-02-18] MEDS: chlordiazePOXIDE HCL 25 MG CAPSULE PO SCH ×4 (05:26→23:01)
[2022-02-18] MEDS ORDERED: INSULIN (NOVOLOG) ASPART 100 UNITS/ML 10ML VIAL ONE (07:50)
[2022-02-18] MEDS: INSULIN (NOVOLOG) ASPART 100 UNITS/ML 10ML VIAL SQ SCH ×4 (08:01→23:02)
[2022-02-18 10:07] LABS: SARS-CoV-2 NAA Not Detected (Not Detected)
[2022-02-18] MEDS: PRENATAL VITAMINS W/ FOLIC ACID TABLET (FP) PO SCH (10:11)
[2022-02-18] MEDS: NIFEdipine E.R 60 MG TABLET PO SCH (10:11)
[2022-02-18] MEDS: DOCUSATE SODIUM 100 MG CAPSULE (FP) PO SCH ×2 (10:11→23:01)
[2022-02-18] MEDS: HYDROCORTISONE 0.5% TOPICAL CREAM 30 GM TUBE TP PRN (10:13)
[2022-02-18] MEDS: INSULIN (LEVEMIR) 100 UNITS/ML UNITS SQ SCH (23:01)
[2022-02-18] MEDS: MELATONIN 5 MG TABLETS PO SCH (23:02)
[2022-02-18] MEDS: THIAMINE HCL 100 MG TABLET (FP) PO SCH (23:03)
[2022-02-19] MEDS ORDERED: chlordiazePOXIDE HCL 10 MG CAPSULE PO PRN
[2022-02-19] MEDS: chlordiazePOXIDE HCL 10 MG CAPSULE PO SCH ×4 (06:17→22:05)
[2022-02-19] MEDS: GABAPENTIN 100 MG CAPSULE PO SCH ×3 (06:19→22:05)
[2022-02-19] MEDS: INSULIN (NOVOLOG) ASPART 100 UNITS/ML 10ML VIAL SQ SCH ×4 (08:01→22:07)
[2022-02-19] MEDS: PRENATAL VITAMINS W/ FOLIC ACID TABLET (FP) PO SCH (10:27)
[2022-02-19] MEDS: DOCUSATE SODIUM 100 MG CAPSULE (FP) PO SCH ×2 (10:31→22:05)
[2022-02-19] MEDS: NIFEdipine E.R 60 MG TABLET PO SCH (10:31)
[2022-02-19] MEDS: MELATONIN 5 MG TABLETS PO SCH (22:05)
[2022-02-19] MEDS: INSULIN (LEVEMIR) 100 UNITS/ML UNITS SQ SCH (22:06)
[2022-02-19] MEDS: THIAMINE HCL 100 MG TABLET (FP) PO SCH (22:09)
[2022-02-20] MEDS: chlordiazePOXIDE HCL 10 MG CAPSULE PO SCH ×2 (05:41→17:56)
[2022-02-20] MEDS: GABAPENTIN 100 MG CAPSULE PO SCH ×3 (05:41→23:04)
[2022-02-20] MEDS: INSULIN (NOVOLOG) ASPART 100 UNITS/ML 10ML VIAL SQ SCH ×4 (07:11→23:13)
[2022-02-20] MEDS: NIFEdipine E.R 60 MG TABLET PO SCH (10:31)
[2022-02-20] MEDS: PRENATAL VITAMINS W/ FOLIC ACID TABLET (FP) PO SCH (10:31)
[2022-02-20] MEDS: DOCUSATE SODIUM 100 MG CAPSULE (FP) PO SCH ×2 (10:31→23:04)
[2022-02-20] MEDS: THIAMINE HCL 100 MG TABLET (FP) PO SCH (23:03)
[2022-02-20] MEDS: INSULIN (LEVEMIR) 100 UNITS/ML UNITS SQ SCH (23:12)
[2022-02-20] MEDS: MELATONIN 5 MG TABLETS PO SCH (23:13)
[2022-02-21] MEDS ORDERED: chlordiazePOXIDE HCL 10 MG CAPSULE PO ONE (05:00)
[2022-02-21] MEDS: GABAPENTIN 100 MG CAPSULE PO SCH ×3 (06:14→21:14)
[2022-02-21] MEDS: INSULIN (NOVOLOG) ASPART 100 UNITS/ML 10ML VIAL SQ SCH ×4 (07:08→21:15)
[2022-02-21] MEDS: NIFEdipine E.R 60 MG TABLET PO SCH (10:25)
[2022-02-21] MEDS: PRENATAL VITAMINS W/ FOLIC ACID TABLET (FP) PO SCH (10:25)
[2022-02-21] MEDS: DOCUSATE SODIUM 100 MG CAPSULE (FP) PO SCH ×2 (10:25→21:14)
[2022-02-21] MEDS ORDERED: INSULIN (NOVOLOG) ASPART 100 UNITS/ML 10ML VIAL ONE (11:45)
[2022-02-21] MEDS ORDERED: INSULIN SLIDING SCALE (NOVOLOG) 1 VIAL SQ ONE ×2 (17:18→21:13)
[2022-02-21] MEDS: THIAMINE HCL 100 MG TABLET (FP) PO SCH (21:14)
[2022-02-21] MEDS: MELATONIN 5 MG TABLETS PO SCH (21:14)
[2022-02-21] MEDS: INSULIN (LEVEMIR) 100 UNITS/ML UNITS SQ SCH (21:15)
[2022-02-22] MEDS: GABAPENTIN 100 MG CAPSULE PO SCH ×3 (05:47→21:44)
[2022-02-22] MEDS ORDERED: INSULIN SLIDING SCALE (NOVOLOG) 1 VIAL SQ ONE ×4 (06:16→21:43)
[2022-02-22] MEDS: INSULIN (NOVOLOG) ASPART 100 UNITS/ML 10ML VIAL SQ SCH ×4 (07:33→21:48)
[2022-02-22] MEDS: DOCUSATE SODIUM 100 MG CAPSULE (FP) PO SCH ×2 (10:12→21:44)
[2022-02-22] MEDS: PRENATAL VITAMINS W/ FOLIC ACID TABLET (FP) PO SCH (10:12)
[2022-02-22] MEDS: NIFEdipine E.R 60 MG TABLET PO SCH (11:10)
[2022-02-22] MEDS: SULFAMETHOXAZOLE/TRIMETHOPRIM 800MG/160MG D.S. TABLET PO SCH (11:47)
[2022-02-22] MEDS: MELATONIN 5 MG TABLETS PO SCH (21:44)
[2022-02-22] MEDS: THIAMINE HCL 100 MG TABLET (FP) PO SCH (21:44)
[2022-02-22] MEDS ORDERED: diphenhydrAMINE HCL 25 MG CAPSULE (FP) PO ONE (21:46)
[2022-02-22] MEDS: diphenhydrAMINE HCL 50 MG CAPSULE PO PRN (21:46)
[2022-02-22] MEDS: INSULIN (LEVEMIR) 100 UNITS/ML UNITS SQ SCH (21:50)
[2022-02-23] MEDS ORDERED: INSULIN SLIDING SCALE (NOVOLOG) 1 VIAL SQ ONE ×3 (02:44→21:57)
[2022-02-23] MEDS: GABAPENTIN 100 MG CAPSULE PO SCH ×3 (05:52→21:58)
[2022-02-23] MEDS: INSULIN (NOVOLOG) ASPART 100 UNITS/ML 10ML VIAL SQ SCH ×4 (06:01→21:59)
[2022-02-23] MEDS: SULFAMETHOXAZOLE/TRIMETHOPRIM 800MG/160MG D.S. TABLET PO SCH (10:28)
[2022-02-23] MEDS: DOCUSATE SODIUM 100 MG CAPSULE (FP) PO SCH ×2 (10:28→21:57)
[2022-02-23] MEDS: NIFEdipine E.R 60 MG TABLET PO SCH (10:28)
[2022-02-23] MEDS: PRENATAL VITAMINS W/ FOLIC ACID TABLET (FP) PO SCH (10:28)
[2022-02-23] MEDS ORDERED: diphenhydrAMINE HCL 25 MG CAPSULE (FP) PO ONE (21:57)
[2022-02-23] MEDS: MELATONIN 5 MG TABLETS PO SCH (21:58)
[2022-02-23] MEDS: THIAMINE HCL 100 MG TABLET (FP) PO SCH (21:58)
[2022-02-23] MEDS: diphenhydrAMINE HCL 50 MG CAPSULE PO PRN (21:58)
[2022-02-23] MEDS: INSULIN (LEVEMIR) 100 UNITS/ML UNITS SQ SCH (21:59)
[2022-02-24] MEDS: GABAPENTIN 100 MG CAPSULE PO SCH ×3 (06:16→22:11)
[2022-02-24] MEDS: INSULIN (NOVOLOG) ASPART 100 UNITS/ML 10ML VIAL SQ SCH ×4 (06:17→22:12)
[2022-02-24] MEDS: SULFAMETHOXAZOLE/TRIMETHOPRIM 800MG/160MG D.S. TABLET PO SCH (09:43)
[2022-02-24] MEDS: NIFEdipine E.R 60 MG TABLET PO SCH (09:43)
[2022-02-24] MEDS: DOCUSATE SODIUM 100 MG CAPSULE (FP) PO SCH ×2 (09:43→22:11)
[2022-02-24] MEDS: PRENATAL VITAMINS W/ FOLIC ACID TABLET (FP) PO SCH (09:43)
[2022-02-24] MEDS ORDERED: INSULIN SLIDING SCALE (NOVOLOG) 1 VIAL SQ ONE (17:02)
[2022-02-24] MEDS: INSULIN (LEVEMIR) 100 UNITS/ML UNITS SQ SCH (22:11)
[2022-02-24] MEDS: MELATONIN 5 MG TABLETS PO SCH (22:11)
[2022-02-24] MEDS: THIAMINE HCL 100 MG TABLET (FP) PO SCH (22:12)
[2022-02-25] MEDS: GABAPENTIN 100 MG CAPSULE PO SCH ×3 (06:22→21:45)
[2022-02-25] MEDS ORDERED: INSULIN SLIDING SCALE (NOVOLOG) 1 VIAL SQ ONE ×4 (06:33→21:44)
[2022-02-25] MEDS: INSULIN (NOVOLOG) ASPART 100 UNITS/ML 10ML VIAL SQ SCH ×4 (07:54→21:46)
[2022-02-25] MEDS: DOCUSATE SODIUM 100 MG CAPSULE (FP) PO SCH ×2 (11:25→21:45)
[2022-02-25] MEDS: PRENATAL VITAMINS W/ FOLIC ACID TABLET (FP) PO SCH (11:25)
[2022-02-25] MEDS: SULFAMETHOXAZOLE/TRIMETHOPRIM 800MG/160MG D.S. TABLET PO SCH (11:25)
[2022-02-25] MEDS: NIFEdipine E.R 60 MG TABLET PO SCH (11:25)
[2022-02-25] MEDS ORDERED: diphenhydrAMINE HCL 25 MG CAPSULE (FP) PO ONE (21:45)
[2022-02-25] MEDS: THIAMINE HCL 100 MG TABLET (FP) PO SCH (21:45)
[2022-02-25] MEDS: MELATONIN 5 MG TABLETS PO SCH (21:45)
[2022-02-25] MEDS: INSULIN (LEVEMIR) 100 UNITS/ML UNITS SQ SCH (21:46)
[2022-02-26] MEDS ORDERED: INSULIN SLIDING SCALE (NOVOLOG) 1 VIAL SQ ONE ×3 (06:15→21:49)
[2022-02-26] MEDS: INSULIN (NOVOLOG) ASPART 100 UNITS/ML 10ML VIAL SQ SCH ×4 (06:15→21:52)
[2022-02-26] MEDS: GABAPENTIN 100 MG CAPSULE PO SCH ×3 (06:16→21:51)
[2022-02-26] MEDS: DOCUSATE SODIUM 100 MG CAPSULE (FP) PO SCH ×2 (10:42→21:51)
[2022-02-26] MEDS: NIFEdipine E.R 60 MG TABLET PO SCH (10:42)
[2022-02-26] MEDS: PRENATAL VITAMINS W/ FOLIC ACID TABLET (FP) PO SCH (10:42)
[2022-02-26] MEDS: SULFAMETHOXAZOLE/TRIMETHOPRIM 800MG/160MG D.S. TABLET PO SCH (10:42)
[2022-02-26] MEDS ORDERED: diphenhydrAMINE HCL 25 MG CAPSULE (FP) PO ONE (21:51)
[2022-02-26] MEDS: MELATONIN 5 MG TABLETS PO SCH (21:51)
[2022-02-26] MEDS: THIAMINE HCL 100 MG TABLET (FP) PO SCH (21:51)
[2022-02-26] MEDS: INSULIN (LEVEMIR) 100 UNITS/ML UNITS SQ SCH (21:53)
[2022-02-26] MEDS: diphenhydrAMINE HCL 50 MG CAPSULE PO PRN (21:54)
[2022-02-27] MEDS: INSULIN (NOVOLOG) ASPART 100 UNITS/ML 10ML VIAL SQ SCH ×4 (06:34→21:41)
[2022-02-27] MEDS ORDERED: INSULIN SLIDING SCALE (NOVOLOG) 1 VIAL SQ ONE ×3 (06:34→21:20)
[2022-02-27] MEDS: GABAPENTIN 100 MG CAPSULE PO SCH ×3 (06:35→21:41)
[2022-02-27] MEDS: SULFAMETHOXAZOLE/TRIMETHOPRIM 800MG/160MG D.S. TABLET PO SCH (11:28)
[2022-02-27] MEDS: PRENATAL VITAMINS W/ FOLIC ACID TABLET (FP) PO SCH (11:28)
[2022-02-27] MEDS: DOCUSATE SODIUM 100 MG CAPSULE (FP) PO SCH ×2 (11:28→21:41)
[2022-02-27] MEDS: NIFEdipine E.R 60 MG TABLET PO SCH (11:28)
[2022-02-27] MEDS ORDERED: diphenhydrAMINE HCL 25 MG CAPSULE (FP) PO ONE (21:21)
[2022-02-27] MEDS: INSULIN (LEVEMIR) 100 UNITS/ML UNITS SQ SCH (21:41)
[2022-02-27] MEDS: MELATONIN 5 MG TABLETS PO SCH (21:41)
[2022-02-27] MEDS: THIAMINE HCL 100 MG TABLET (FP) PO SCH (21:41)
[2022-02-28] MEDS ORDERED: INSULIN SLIDING SCALE (NOVOLOG) 1 VIAL SQ ONE ×2 (04:45→06:43)
[2022-02-28] MEDS: GABAPENTIN 100 MG CAPSULE PO SCH (06:31)
[2022-02-28] MEDS: INSULIN (NOVOLOG) ASPART 100 UNITS/ML 10ML VIAL SQ SCH (06:32)
[2022-02-28 06:50] VITALS: BP 138/90; PULSE 79; TEMP 98.2
[2022-02-28] MEDS: PRENATAL VITAMINS W/ FOLIC ACID TABLET (FP) PO SCH (09:06)
[2022-02-28] MEDS: DOCUSATE SODIUM 100 MG CAPSULE (FP) PO SCH (09:06)
[2022-02-28] MEDS: NIFEdipine E.R 60 MG TABLET PO SCH (09:06)
[2022-02-28] MEDS: SULFAMETHOXAZOLE/TRIMETHOPRIM 800MG/160MG D.S. TABLET PO SCH (09:06)
== END 2022-02-28 09:11 | disposition home or self-care (01) | DRG 895 ==
LOC: YASAS 08:10 → Y6N 10:57 → Y3W 02-21 13:08
PROVIDERS: ADMIT Allergy & Immunology; ATTEND Allergy & Immunology
PROC: HZ2ZZZZ Detoxification Services for Substance Abuse Treatment (ICD-10-PCS; 2022-02-16)
PROC: HZ42ZZZ Group Counseling for Substance Abuse Treatment, Cognitive-Behavioral (ICD-10-PCS; principal; 2022-02-21)
DX: F10.20 Alcohol dependence, uncomplicated (principal); F14.20 Cocaine dependence, uncomplicated; F19.282 Other psychoactive substance dependence with psychoactive substance-induced sleep disorder; F12.20 Cannabis dependence, uncomplicated; F17.210 Nicotine dependence, cigarettes, uncomplicated; F10.280 Alcohol dependence with alcohol-induced anxiety disorder; F41.1 Generalized anxiety disorder; I10 Essential (primary) hypertension; E78.5 Hyperlipidemia, unspecified; E11.9 Type 2 diabetes mellitus without complications; Z79.4 Long term (current) use of insulin; E66.9 Obesity, unspecified; Z68.30 Body mass index [BMI] 30.0-30.9, adult; Z86.19 Personal history of other infectious and parasitic diseases; Z91.011 Allergy to milk products
CPT/HCPCS: 36415; 80053; 82962; 83036; 85027; 86780; 87811; C9803-CS; U0003; U0005

== ENCOUNTER 2022-03-30 11:05 | Inpatient (IN) | payer OTHER ==
[2022-03-30 11:39] VITALS: BMI 30.2
[2022-03-30] MEDS ORDERED: BISMUTH SUBSALICYLATE 524 MG/30 ML PO PRN (12:32)
[2022-03-30] MEDS ORDERED: diazePAM 5 MG TABLET PO PRN (12:32)
[2022-03-30] MEDS ORDERED: NICOTINE 10 MG CARTRIDGE (INHALER) IH PRN (12:32)
[2022-03-30] MEDS ORDERED: MAGNESIUM HYDROX 2400MG/30ML ORAL SUSPENSION 30 ML CUP PO PRN (12:32)
[2022-03-30] MEDS ORDERED: MAGNESIUM CITRATE 300 ML BOTTLE PO PRN (12:32)
[2022-03-30] MEDS ORDERED: MAG HYDROX/AL HYDROX/SIMETH 30 ML UNIT-DOSE CUP PO PRN (12:32)
[2022-03-30] MEDS ORDERED: BENZOCAINE/MENTHOL (CHLORASEPTIC ) LOZENGE MM PRN (12:32)
[2022-03-30] MEDS ORDERED: ONDANSETRON *ODT* 4 MG TABLET SL PRN (12:32)
[2022-03-30] MEDS ORDERED: ACETAMINOPHEN 325 MG TABLET (FP) PO PRN ×2 (12:32)
[2022-03-30] MEDS ORDERED: DICYCLOMINE HCL 10 MG CAPSULE PO PRN (12:32)
[2022-03-30] MEDS ORDERED: IBUPROFEN 400 MG TABLET (FP) PO PRN (12:32)
[2022-03-30] MEDS ORDERED: LOPERAMIDE HCL 2 MG CAPSULE PO PRN (12:32)
[2022-03-30] MEDS ORDERED: CALAMINE 8% TOPICAL LOTION 177 ML BOTTLE TP PRN (13:03)
[2022-03-30] MEDS: INSULIN (LEVEMIR) 100 UNITS/ML UNITS SQ SCH ×2 (15:44→21:46)
[2022-03-30] MEDS: PRENATAL VITAMINS W/ FOLIC ACID TABLET (FP) PO SCH (15:44)
[2022-03-30] MEDS: METHOCARBAMOL 500 MG TABLET PO PRN (15:44)
[2022-03-30] MEDS: NIFEdipine E.R 60 MG TABLET PO SCH (15:44)
[2022-03-30] MEDS: hydrOXYzine PAMOATE 25 MG CAPSULE (FP) PO SCH ×3 (15:45→21:47)
[2022-03-30] MEDS: PETROLATUM, WHITE 30 GM TUBE TP SCH (15:51)
[2022-03-30] MEDS: diazePAM 5 MG TABLET PO SCH ×2 (17:31→22:27)
[2022-03-30] MEDS: INSULIN SLIDING SCALE (NOVOLOG) 1 VIAL SQ SCH (17:34)
[2022-03-30] MEDS: MELATONIN 5 MG TABLETS PO SCH (21:45)
[2022-03-30] MEDS: THIAMINE HCL 100 MG TABLET (FP) PO SCH (21:46)
[2022-03-31] MEDS: diazePAM 5 MG TABLET PO SCH ×4 (05:37→23:23)
[2022-03-31] MEDS: hydrOXYzine PAMOATE 25 MG CAPSULE (FP) PO SCH ×5 (05:38→21:46)
[2022-03-31] MEDS: INSULIN SLIDING SCALE (NOVOLOG) 1 VIAL SQ SCH ×3 (06:43→23:20)
[2022-03-31] MEDS ORDERED: INSULIN SLIDING SCALE (NOVOLOG) 1 VIAL SQ ONE (07:29)
[2022-03-31 10:24] LABS: ALBUMIN 4.4 g/dl (3.4-5.0); BLOOD UREA NITROGEN 15.3 mg/dL (7-18); CALCIUM 9.3 mg/dL (8.5-10.1)
[2022-03-31 10:26] LABS: HEMATOCRIT 41.9 % (35.4-49); HEMOGLOBIN 14.1 GM/dL (11.7-16.9); MCH 29.9 pg (25.7-33.7); MCHC 33.6 g/dl (32.0-35.9); MEAN CELL VOLUME 89.2 fl (80-96); MEAN PLT VOLUME 10.1 fl (7.5-11.1); PLATELET COUNT 174 10^3/uL (134-434); RBC 4.69 M/mm3 (4.00-5.60); RDW 13.9 % (11.9-15.9); WHITE BLOOD COUNT 4.9 K/mm3 (4.0-10.0)
[2022-03-31 10:27] LABS: CREATININE 0.7 mg/dL (0.55-1.3)
[2022-03-31 10:29] LABS: BILIRUBIN,TOTAL 0.8 mg/dL (0.2-1); TOT PROT 7.6 g/dl (6.4-8.2)
[2022-03-31] MEDS: PRENATAL VITAMINS W/ FOLIC ACID TABLET (FP) PO SCH (10:35)
[2022-03-31] MEDS: NIFEdipine E.R 60 MG TABLET PO SCH (10:37)
[2022-03-31] MEDS: INSULIN (LEVEMIR) 100 UNITS/ML UNITS SQ SCH ×2 (10:37→21:47)
[2022-03-31] MEDS: PETROLATUM, WHITE 30 GM TUBE TP SCH (10:39)
[2022-03-31] MEDS: THIAMINE HCL 100 MG TABLET (FP) PO SCH (21:46)
[2022-03-31] MEDS: MELATONIN 5 MG TABLETS PO SCH (21:48)
[2022-03-31 22:23] LABS: PH,URINE 7.5 (5.0-8.0); URINE APPEARANCE CLEAR; URINE BILIRUBIN NEGATIVE (NEGATIVE); URINE COLOR YELLOW; URINE GLUCOSE (UA) 3+ (NEGATIVE); URINE KETONE TRACE (NEGATIVE); URINE LEUK ESTERASE NEGATIVE (NEGATIVE); URINE NITRITE NEGATIVE (NEGATIVE); URINE PROTEIN NEGATIVE (NEGATIVE); URINE UROBILINOGEN 0.2 mg/dL (0.2-1.0)
[2022-04-01] MEDS: hydrOXYzine PAMOATE 25 MG CAPSULE (FP) PO SCH ×5 (05:51→22:56)
[2022-04-01] MEDS: diazePAM 5 MG TABLET PO SCH ×3 (05:51→22:56)
[2022-04-01] MEDS: INSULIN SLIDING SCALE (NOVOLOG) 1 VIAL SQ SCH ×4 (07:14→22:58)
[2022-04-01] MEDS: INSULIN (LEVEMIR) 100 UNITS/ML UNITS SQ SCH ×2 (09:14→23:00)
[2022-04-01] MEDS: PRENATAL VITAMINS W/ FOLIC ACID TABLET (FP) PO SCH (10:29)
[2022-04-01] MEDS: PETROLATUM, WHITE 30 GM TUBE TP SCH (10:30)
[2022-04-01] MEDS: NIFEdipine E.R 60 MG TABLET PO SCH (10:30)
[2022-04-01] MEDS: METHOCARBAMOL 500 MG TABLET PO PRN (22:56)
[2022-04-01] MEDS: THIAMINE HCL 100 MG TABLET (FP) PO SCH (22:57)
[2022-04-01] MEDS: MELATONIN 5 MG TABLETS PO SCH (23:01)
[2022-04-02] MEDS: hydrOXYzine PAMOATE 25 MG CAPSULE (FP) PO SCH (05:29)
[2022-04-02] MEDS ORDERED: diazePAM 5 MG TABLET PO SCH (06:00)
[2022-04-02] MEDS: INSULIN SLIDING SCALE (NOVOLOG) 1 VIAL SQ SCH (07:38)
[2022-04-02 09:55] VITALS: BP 139/81; PULSE 85; TEMP 97.1
[2022-04-03] MEDS ORDERED: diazePAM 5 MG TABLET PO ONE (06:00)
== END 2022-04-02 10:20 | disposition home or self-care (01) | DRG 897 ==
LOC: YASAS 11:05 → Y3N 12:30
PROVIDERS: ADMIT Allergy & Immunology; ATTEND Surgery
PROC: HZ2ZZZZ Detoxification Services for Substance Abuse Treatment (ICD-10-PCS; principal; 2022-03-30)
DX: F10.230 Alcohol dependence with withdrawal, uncomplicated (principal); F13.230 Sedative, hypnotic or anxiolytic dependence with withdrawal, uncomplicated; F12.20 Cannabis dependence, uncomplicated; F41.9 Anxiety disorder, unspecified; F41.0 Panic disorder [episodic paroxysmal anxiety]; I10 Essential (primary) hypertension; E78.5 Hyperlipidemia, unspecified; E66.3 Overweight; E11.9 Type 2 diabetes mellitus without complications; Z79.4 Long term (current) use of insulin; Z86.19 Personal history of other infectious and parasitic diseases; Z91.012 Allergy to eggs
CPT/HCPCS: 36415; 80053; 81003; 82962; 85027; 86780; C9803-CS; U0003; U0005

== ENCOUNTER 2022-04-07 12:32 | Inpatient (IN) | payer OTHER ==
[2022-04-07 12:58] VITALS: BMI 31.8
[2022-04-07] MEDS ORDERED: P-EPHED 60MG/TRIPROLIDI 2.5MG TABLET PO PRN (15:06)
[2022-04-07] MEDS ORDERED: ACETAMINOPHEN 325 MG TABLET (FP) PO PRN (15:06)
[2022-04-07] MEDS ORDERED: MAG HYDROX/AL HYDROX/SIMETH 30 ML UNIT-DOSE CUP PO PRN (15:06)
[2022-04-07] MEDS ORDERED: MAGNESIUM HYDROX 2400MG/30ML ORAL SUSPENSION 30 ML CUP PO PRN (15:06)
[2022-04-07] MEDS ORDERED: LOPERAMIDE HCL 2 MG CAPSULE PO PRN (15:06)
[2022-04-07] MEDS ORDERED: guaiFENesin 200 MG/10 ML 10 ML UNIT-DOSE CUPS PO PRN (15:06)
[2022-04-07] MEDS ORDERED: NICOTINE 10 MG CARTRIDGE (INHALER) IH PRN (15:06)
[2022-04-07] MEDS ORDERED: IBUPROFEN 400 MG TABLET (FP) PO PRN (15:06)
[2022-04-07] MEDS ORDERED: MAGNESIUM CITRATE 300 ML BOTTLE PO PRN (15:06)
[2022-04-07] MEDS ORDERED: CALAMINE 8% TOPICAL LOTION 177 ML BOTTLE TP PRN (15:17)
[2022-04-07] MEDS: hydrOXYzine PAMOATE 25 MG CAPSULE (FP) PO SCH ×2 (19:34→21:36)
[2022-04-07] MEDS: INSULIN SLIDING SCALE (NOVOLOG) 1 VIAL SQ SCH ×2 (19:35→21:41)
[2022-04-07 20:00] VITALS: PULSE 93
[2022-04-07] MEDS ORDERED: INSULIN (LEVEMIR) 100 UNITS/ML UNITS SQ ONE (21:54)
[2022-04-07] MEDS ORDERED: INSULIN (NOVOLOG) ASPART 100 UNITS/ML 10ML VIAL ONE (21:54)
[2022-04-07] MEDS ORDERED: THIAMINE HCL 100 MG TABLET (FP) PO SCH (22:00)
[2022-04-07] MEDS ORDERED: INSULIN (LEVEMIR) 100 UNITS/ML UNITS SQ SCH (22:00)
[2022-04-07] MEDS ORDERED: MELATONIN 5 MG TABLETS PO SCH (22:00)
[2022-04-08] MEDS: hydrOXYzine PAMOATE 25 MG CAPSULE (FP) PO SCH (06:46)
[2022-04-08] MEDS ORDERED: INSULIN (NOVOLOG) ASPART 100 UNITS/ML 10ML VIAL ONE (06:50)
[2022-04-08] MEDS: INSULIN SLIDING SCALE (NOVOLOG) 1 VIAL SQ SCH (07:09)
[2022-04-08 07:24] VITALS: BP 133/79; TEMP 96.9
[2022-04-08] MEDS ORDERED: NIFEdipine E.R 60 MG TABLET PO SCH (10:00)
[2022-04-08] MEDS ORDERED: PRENATAL VITAMINS W/ FOLIC ACID TABLET (FP) PO SCH (10:00)
[2022-04-08] MEDS ORDERED: NICOTINE 7 MG/24 HOURS TOPICAL PATCH TD SCH (10:00)
[2022-04-08 11:05] LABS: URINE APPEARANCE CLEAR; URINE BILIRUBIN NEGATIVE (NEGATIVE); URINE COLOR YELLOW; URINE KETONE TRACE (NEGATIVE); URINE PROTEIN NEGATIVE (NEGATIVE)
[2022-04-08 11:06] LABS: EPI CELLS 1.2 /uL (0-25.1); URINE BACTERIA 18.3 /uL (0-1359); URINE LEUK ESTERASE NEGATIVE (NEGATIVE); URINE NITRITE NEGATIVE (NEGATIVE); URINE RBC 2.1 /uL (0-23.9); URINE UROBILINOGEN 0.2 mg/dL (0.2-1.0); URINE WBC 4.3 /uL (0-25.8)
== END 2022-04-08 09:20 | disposition left against medical advice (07) | DRG 894 ==
LOC: YASAS 12:32 → SUATTDRO 12:32 → Y5N 18:01
PROVIDERS: ADMIT Allergy & Immunology; ATTEND Psychiatry & Neurology Pain Medicine
PROC: HZ42ZZZ Group Counseling for Substance Abuse Treatment, Cognitive-Behavioral (ICD-10-PCS; principal; 2022-04-07)
DX: F10.20 Alcohol dependence, uncomplicated (principal); F14.20 Cocaine dependence, uncomplicated; F12.20 Cannabis dependence, uncomplicated; F17.210 Nicotine dependence, cigarettes, uncomplicated; F10.282 Alcohol dependence with alcohol-induced sleep disorder; F10.280 Alcohol dependence with alcohol-induced anxiety disorder; F19.24 Other psychoactive substance dependence with psychoactive substance-induced mood disorder; F41.1 Generalized anxiety disorder; I10 Essential (primary) hypertension; E78.5 Hyperlipidemia, unspecified; E11.9 Type 2 diabetes mellitus without complications; Z79.4 Long term (current) use of insulin; Z86.19 Personal history of other infectious and parasitic diseases
CPT/HCPCS: 81003; 82962; C9803-CS; U0003; U0005

== ENCOUNTER 2022-05-04 11:40 | Inpatient (IN) | payer OTHER ==
[2022-05-04 13:01] VITALS: BMI 31.3
[2022-05-04] MEDS ORDERED: ACETAMINOPHEN 325 MG TABLET (FP) PO PRN ×2 (13:23)
[2022-05-04] MEDS ORDERED: chlordiazePOXIDE HCL 25 MG CAPSULE PO PRN (13:23)
[2022-05-04] MEDS ORDERED: MAG HYDROX/AL HYDROX/SIMETH 30 ML UNIT-DOSE CUP PO PRN (13:23)
[2022-05-04] MEDS ORDERED: NICOTINE 10 MG CARTRIDGE (INHALER) IH PRN (13:23)
[2022-05-04] MEDS ORDERED: METHOCARBAMOL 500 MG TABLET PO PRN (13:23)
[2022-05-04] MEDS ORDERED: DICYCLOMINE HCL 10 MG CAPSULE PO PRN (13:23)
[2022-05-04] MEDS ORDERED: MAGNESIUM HYDROX 2400MG/30ML ORAL SUSPENSION 30 ML CUP PO PRN (13:23)
[2022-05-04] MEDS ORDERED: MAGNESIUM CITRATE 300 ML BOTTLE PO PRN (13:23)
[2022-05-04] MEDS ORDERED: IBUPROFEN 400 MG TABLET (FP) PO PRN (13:23)
[2022-05-04] MEDS ORDERED: IBUPROFEN 600 MG TABLET (FP) PO PRN (13:23)
[2022-05-04] MEDS ORDERED: ONDANSETRON *ODT* 4 MG TABLET SL PRN (13:23)
[2022-05-04] MEDS ORDERED: BENZOCAINE/MENTHOL (CHLORASEPTIC ) LOZENGE MM PRN (13:23)
[2022-05-04] MEDS ORDERED: LOPERAMIDE HCL 2 MG CAPSULE PO PRN (13:23)
[2022-05-04] MEDS ORDERED: BISMUTH SUBSALICYLATE 524 MG/30 ML PO PRN (13:23)
[2022-05-04] MEDS: hydrOXYzine PAMOATE 25 MG CAPSULE (FP) PO SCH ×3 (13:55→23:05)
[2022-05-04] MEDS: NIFEdipine E.R 60 MG TABLET PO SCH (15:32)
[2022-05-04] MEDS ORDERED: INSULIN (NOVOLOG) ASPART 100 UNITS/ML 10ML VIAL ONE ×3 (17:10→23:02)
[2022-05-04 17:12] LABS: CHLORIDE 105 mmol/L (98-107); SODIUM 141 mmol/L (136-145)
[2022-05-04 17:13] LABS: HEMOGLOBIN 13.1 GM/dL (11.7-16.9); MCH 30.6 pg (25.7-33.7); MCHC 34.5 g/dl (32.0-35.9); MEAN CELL VOLUME 88.8 fl (80-96); PLATELET COUNT 165 10^3/uL (134-434); RBC 4.28 M/mm3 (4.00-5.60); RDW 13.7 % (11.9-15.9); WHITE BLOOD COUNT 5.7 K/mm3 (4.0-10.0)
[2022-05-04 17:16] LABS: CALCIUM 8.3 mg/dL (8.5-10.1)
[2022-05-04 17:17] LABS: ALBUMIN 3.7 g/dl (3.4-5.0); ANION GAP 8 MMOL/L (8-16); CO2 28 mmol/L (21-32)
[2022-05-04 17:20] LABS: CREATININE 0.8 mg/dL (0.55-1.3); SGOT/AST 17 U/L (15-37); SGPT/ALT 26 U/L (13-61)
[2022-05-04 17:22] LABS: BILIRUBIN,TOTAL 1.1 mg/dL (0.2-1)
[2022-05-04 17:23] LABS: ALK PHOS 69 U/L (45-117)
[2022-05-04] MEDS: chlordiazePOXIDE HCL 25 MG CAPSULE PO SCH ×2 (17:23→23:05)
[2022-05-04] MEDS: INSULIN SLIDING SCALE (NOVOLOG) 1 VIAL SQ SCH ×2 (17:23→23:03)
[2022-05-04 17:33] LABS: GLUCOSE,RANDOM 493 mg/dL (74-106); TOT PROT 6.6 g/dl (6.4-8.2)
[2022-05-04] MEDS ORDERED: INSULIN (LEVEMIR) 100 UNITS/ML UNITS SQ SCH (22:00)
[2022-05-04] MEDS ORDERED: THIAMINE HCL 100 MG TABLET (FP) PO SCH (22:00)
[2022-05-04] MEDS ORDERED: diphenhydrAMINE HCL 25 MG CAPSULE (FP) PO PRN (22:00)
[2022-05-04] MEDS ORDERED: MELATONIN 5 MG TABLETS PO SCH (22:00)
[2022-05-04] MEDS: GABAPENTIN 100 MG CAPSULE PO SCH (23:04)
[2022-05-05] MEDS: chlordiazePOXIDE HCL 25 MG CAPSULE PO SCH ×2 (05:18→10:10)
[2022-05-05] MEDS: GABAPENTIN 100 MG CAPSULE PO SCH ×2 (05:19→13:30)
[2022-05-05] MEDS: hydrOXYzine PAMOATE 25 MG CAPSULE (FP) PO SCH ×3 (05:21→13:31)
[2022-05-05] MEDS: INSULIN SLIDING SCALE (NOVOLOG) 1 VIAL SQ SCH ×2 (07:23→11:50)
[2022-05-05] MEDS ORDERED: PRENATAL VITAMINS W/ FOLIC ACID TABLET (FP) PO SCH (10:00)
[2022-05-05] MEDS: NIFEdipine E.R 60 MG TABLET PO SCH (10:09)
[2022-05-05 12:54] VITALS: BP 117/68; PULSE 83; TEMP 97.4
[2022-05-06] MEDS ORDERED: chlordiazePOXIDE HCL 25 MG CAPSULE PO SCH (05:00)
[2022-05-07] MEDS ORDERED: chlordiazePOXIDE HCL 10 MG CAPSULE PO PRN
[2022-05-07] MEDS ORDERED: chlordiazePOXIDE HCL 10 MG CAPSULE PO SCH (05:00)
[2022-05-08] MEDS ORDERED: chlordiazePOXIDE HCL 10 MG CAPSULE PO SCH (05:00)
[2022-05-09] MEDS ORDERED: chlordiazePOXIDE HCL 10 MG CAPSULE PO ONE (05:00)
== END 2022-05-05 14:24 | disposition left against medical advice (07) | DRG 894 ==
LOC: YASAS 11:40 → Y6N 13:18
PROVIDERS: ADMIT Allergy & Immunology; ATTEND Surgery
PROC: HZ2ZZZZ Detoxification Services for Substance Abuse Treatment (ICD-10-PCS; principal; 2022-05-04)
DX: F10.230 Alcohol dependence with withdrawal, uncomplicated (principal); F10.280 Alcohol dependence with alcohol-induced anxiety disorder; I10 Essential (primary) hypertension; E11.9 Type 2 diabetes mellitus without complications; E78.5 Hyperlipidemia, unspecified; R21 Rash and other nonspecific skin eruption; E66.9 Obesity, unspecified; Z68.31 Body mass index [BMI] 31.0-31.9, adult; Z91.011 Allergy to milk products; Z87.438 Personal history of other diseases of male genital organs; Z79.4 Long term (current) use of insulin; Z86.19 Personal history of other infectious and parasitic diseases; Z56.0 Unemployment, unspecified
CPT/HCPCS: 36415; 80053; 82962; 85027; 86780; C9803-CS; U0003; U0005

== ENCOUNTER 2022-05-18 08:31 | Inpatient (IN) | payer OTHER ==
[2022-05-18 09:15] VITALS: BMI 30.8
[2022-05-18] MEDS ORDERED: ACETAMINOPHEN 325 MG TABLET (FP) PO PRN (13:13)
[2022-05-18] MEDS ORDERED: MAGNESIUM CITRATE 300 ML BOTTLE PO PRN (13:13)
[2022-05-18] MEDS ORDERED: MAG HYDROX/AL HYDROX/SIMETH 30 ML UNIT-DOSE CUP PO PRN (13:13)
[2022-05-18] MEDS ORDERED: MAGNESIUM HYDROX 2400MG/30ML ORAL SUSPENSION 30 ML CUP PO PRN (13:13)
[2022-05-18] MEDS ORDERED: LOPERAMIDE HCL 2 MG CAPSULE PO PRN (13:13)
[2022-05-18] MEDS ORDERED: NICOTINE 10 MG CARTRIDGE (INHALER) IH PRN (13:13)
[2022-05-18] MEDS ORDERED: guaiFENesin 200 MG/10 ML 10 ML UNIT-DOSE CUPS PO PRN (13:13)
[2022-05-18] MEDS ORDERED: P-EPHED 60MG/TRIPROLIDI 2.5MG TABLET PO PRN (13:13)
[2022-05-18] MEDS ORDERED: IBUPROFEN 400 MG TABLET (FP) PO PRN (13:13)
[2022-05-18] MEDS ORDERED: INSULIN (NOVOLOG) ASPART 100 UNITS/ML 10ML VIAL SQ ONE (14:48)
[2022-05-18] MEDS: hydrOXYzine PAMOATE 25 MG CAPSULE (FP) PO SCH ×3 (15:46→21:49)
[2022-05-18] MEDS: INSULIN SLIDING SCALE (NOVOLOG) 1 VIAL SQ SCH ×2 (17:11→21:51)
[2022-05-18] MEDS ORDERED: INSULIN SLIDING SCALE (NOVOLOG) 1 VIAL SQ ONE (21:49)
[2022-05-18] MEDS: THIAMINE HCL 100 MG TABLET (FP) PO SCH (21:50)
[2022-05-18] MEDS: GABAPENTIN 100 MG CAPSULE PO SCH (21:50)
[2022-05-18] MEDS: DOCUSATE SODIUM 100 MG CAPSULE (FP) PO SCH (21:50)
[2022-05-18] MEDS: BACITRACIN/POLYMYXIN B SULFATE 15 GM TUBE TP SCH (21:51)
[2022-05-18] MEDS: INSULIN (LEVEMIR) 100 UNITS/ML UNITS SQ SCH (21:51)
[2022-05-18] MEDS ORDERED: MELATONIN 5 MG TABLETS PO SCH (22:00)
[2022-05-18] MEDS ORDERED: diphenhydrAMINE HCL 25 MG CAPSULE (FP) PO PRN (22:00)
[2022-05-19] MEDS: DOCUSATE SODIUM 100 MG CAPSULE (FP) PO SCH ×3 (06:12→21:01)
[2022-05-19] MEDS: GABAPENTIN 100 MG CAPSULE PO SCH ×3 (06:12→21:01)
[2022-05-19] MEDS: hydrOXYzine PAMOATE 25 MG CAPSULE (FP) PO SCH ×5 (06:12→21:01)
[2022-05-19] MEDS: INSULIN SLIDING SCALE (NOVOLOG) 1 VIAL SQ SCH ×4 (07:25→21:01)
[2022-05-19] MEDS: PRENATAL VITAMINS W/ FOLIC ACID TABLET (FP) PO SCH (09:44)
[2022-05-19] MEDS: BACITRACIN/POLYMYXIN B SULFATE 15 GM TUBE TP SCH ×2 (09:44→21:02)
[2022-05-19] MEDS: NIFEdipine E.R 60 MG TABLET PO SCH (11:29)
[2022-05-19] MEDS ORDERED: INSULIN SLIDING SCALE (NOVOLOG) 1 VIAL SQ ONE ×2 (11:33→22:18)
[2022-05-19 12:51] LABS: HEMATOCRIT 43.8 % (35.4-49); MCH 30.1 pg (25.7-33.7); MCHC 34.3 g/dl (32.0-35.9); MEAN CELL VOLUME 87.9 fl (80-96); MEAN PLT VOLUME 10.3 fl (7.5-11.1); PLATELET COUNT 233 10^3/uL (134-434); RBC 4.99 M/mm3 (4.00-5.60); RDW 14.2 % (11.9-15.9); WHITE BLOOD COUNT 4.5 K/mm3 (4.0-10.0)
[2022-05-19 13:24] LABS: SYPHILIS W/ RPR CONF NON-REACTIVE (NONREACTIVE)
[2022-05-19 13:31] LABS: CALCIUM 9.3 mg/dL (8.5-10.1)
[2022-05-19 13:32] LABS: ALBUMIN 4.1 g/dl (3.4-5.0); BLOOD UREA NITROGEN 9.5 mg/dL (7-18)
[2022-05-19 13:35] LABS: CREATININE 0.8 mg/dL (0.55-1.3)
[2022-05-19 13:36] LABS: BILIRUBIN,TOTAL 0.7 mg/dL (0.2-1); TOT PROT 7.8 g/dl (6.4-8.2)
[2022-05-19] MEDS: INSULIN (LEVEMIR) 100 UNITS/ML UNITS SQ SCH (21:00)
[2022-05-19] MEDS: THIAMINE HCL 100 MG TABLET (FP) PO SCH (21:02)
[2022-05-20] MEDS: GABAPENTIN 100 MG CAPSULE PO SCH ×3 (06:26→21:52)
[2022-05-20] MEDS: DOCUSATE SODIUM 100 MG CAPSULE (FP) PO SCH ×3 (06:26→21:52)
[2022-05-20] MEDS: hydrOXYzine PAMOATE 25 MG CAPSULE (FP) PO SCH ×5 (06:27→21:52)
[2022-05-20] MEDS: INSULIN SLIDING SCALE (NOVOLOG) 1 VIAL SQ SCH ×4 (07:10→21:54)
[2022-05-20] MEDS: PRENATAL VITAMINS W/ FOLIC ACID TABLET (FP) PO SCH (10:16)
[2022-05-20] MEDS: BACITRACIN/POLYMYXIN B SULFATE 15 GM TUBE TP SCH ×2 (10:17→21:55)
[2022-05-20] MEDS: NIFEdipine E.R 60 MG TABLET PO SCH (10:18)
[2022-05-20 12:43] LABS: PH,URINE 5.5 (5.0-8.0); URINE APPEARANCE CLEAR; URINE BILIRUBIN NEGATIVE (NEGATIVE); URINE COLOR YELLOW; URINE GLUCOSE (UA) 3+ (NEGATIVE); URINE KETONE NEGATIVE (NEGATIVE); URINE LEUK ESTERASE NEGATIVE (NEGATIVE); URINE NITRITE NEGATIVE (NEGATIVE); URINE PROTEIN NEGATIVE (NEGATIVE); URINE UROBILINOGEN 0.2 mg/dL (0.2-1.0)
[2022-05-20] MEDS ORDERED: INSULIN (NOVOLOG) ASPART 100 UNITS/ML 10ML VIAL SQ ONE (16:56)
[2022-05-20] MEDS ORDERED: sitaGLIPtin PHOSPHATE 50 MG TABLET PO ONE (17:11)
[2022-05-20] MEDS ORDERED: INSULIN SLIDING SCALE (NOVOLOG) 1 VIAL SQ ONE ×2 (17:12→21:51)
[2022-05-20] MEDS: THIAMINE HCL 100 MG TABLET (FP) PO SCH (21:52)
[2022-05-20] MEDS: INSULIN (LEVEMIR) 100 UNITS/ML UNITS SQ SCH (21:54)
[2022-05-21] MEDS: hydrOXYzine PAMOATE 25 MG CAPSULE (FP) PO SCH ×5 (06:37→21:55)
[2022-05-21] MEDS: DOCUSATE SODIUM 100 MG CAPSULE (FP) PO SCH ×3 (06:37→21:39)
[2022-05-21] MEDS: GABAPENTIN 100 MG CAPSULE PO SCH ×3 (06:37→21:39)
[2022-05-21] MEDS: INSULIN SLIDING SCALE (NOVOLOG) 1 VIAL SQ SCH ×4 (08:23→21:55)
[2022-05-21] MEDS: PRENATAL VITAMINS W/ FOLIC ACID TABLET (FP) PO SCH (10:07)
[2022-05-21] MEDS: BACITRACIN/POLYMYXIN B SULFATE 15 GM TUBE TP SCH ×2 (10:08→21:39)
[2022-05-21] MEDS: NIFEdipine E.R 60 MG TABLET PO SCH (10:08)
[2022-05-21] MEDS ORDERED: INSULIN SLIDING SCALE (NOVOLOG) 1 VIAL SQ ONE ×3 (12:21→21:38)
[2022-05-21] MEDS: THIAMINE HCL 100 MG TABLET (FP) PO SCH (21:39)
[2022-05-21] MEDS: INSULIN (LEVEMIR) 100 UNITS/ML UNITS SQ SCH (21:55)
[2022-05-22] MEDS: GABAPENTIN 100 MG CAPSULE PO SCH ×3 (06:26→21:32)
[2022-05-22] MEDS: hydrOXYzine PAMOATE 25 MG CAPSULE (FP) PO SCH ×5 (06:26→21:32)
[2022-05-22] MEDS: DOCUSATE SODIUM 100 MG CAPSULE (FP) PO SCH ×3 (06:26→21:32)
[2022-05-22] MEDS: INSULIN SLIDING SCALE (NOVOLOG) 1 VIAL SQ SCH ×4 (07:05→22:13)
[2022-05-22] MEDS ORDERED: BACITRACIN 0.9 GM PACKET TP SCH (10:00)
[2022-05-22] MEDS: BACITRACIN/POLYMYXIN B SULFATE 15 GM TUBE TP SCH ×2 (10:09→21:33)
[2022-05-22] MEDS: PRENATAL VITAMINS W/ FOLIC ACID TABLET (FP) PO SCH (10:09)
[2022-05-22] MEDS: NIFEdipine E.R 60 MG TABLET PO SCH (10:09)
[2022-05-22] MEDS ORDERED: INSULIN SLIDING SCALE (NOVOLOG) 1 VIAL SQ ONE (12:10)
[2022-05-22] MEDS: THIAMINE HCL 100 MG TABLET (FP) PO SCH (21:32)
[2022-05-22] MEDS: sitaGLIPtin PHOSPHATE 50 MG TABLET PO SCH (23:24)
[2022-05-23] MEDS: GABAPENTIN 100 MG CAPSULE PO SCH ×3 (06:16→22:55)
[2022-05-23] MEDS: hydrOXYzine PAMOATE 25 MG CAPSULE (FP) PO SCH ×5 (06:16→22:57)
[2022-05-23] MEDS: DOCUSATE SODIUM 100 MG CAPSULE (FP) PO SCH ×3 (06:16→22:55)
[2022-05-23] MEDS: INSULIN SLIDING SCALE (NOVOLOG) 1 VIAL SQ SCH ×4 (06:40→22:55)
[2022-05-23] MEDS: PRENATAL VITAMINS W/ FOLIC ACID TABLET (FP) PO SCH (10:08)
[2022-05-23] MEDS: NIFEdipine E.R 60 MG TABLET PO SCH (10:09)
[2022-05-23] MEDS: sitaGLIPtin PHOSPHATE 50 MG TABLET PO SCH (12:04)
[2022-05-23] MEDS: BACITRACIN/POLYMYXIN B SULFATE 15 GM TUBE TP SCH ×2 (12:05→22:57)
[2022-05-23] MEDS: THIAMINE HCL 100 MG TABLET (FP) PO SCH (22:57)
[2022-05-24] MEDS: GABAPENTIN 100 MG CAPSULE PO SCH (06:11)
[2022-05-24] MEDS: hydrOXYzine PAMOATE 25 MG CAPSULE (FP) PO SCH (06:11)
[2022-05-24] MEDS: DOCUSATE SODIUM 100 MG CAPSULE (FP) PO SCH (06:11)
[2022-05-24] MEDS: sitaGLIPtin PHOSPHATE 50 MG TABLET PO SCH (06:11)
[2022-05-24] MEDS: INSULIN SLIDING SCALE (NOVOLOG) 1 VIAL SQ SCH (06:50)
[2022-05-24 07:11] VITALS: TEMP 96.9
[2022-05-24 08:59] VITALS: BP 144/89; PULSE 92
== END 2022-05-24 09:58 | disposition home or self-care (01) | DRG 895 ==
LOC: YASAS 08:31 → Y3W 14:42
PROVIDERS: ADMIT Allergy & Immunology; ATTEND Psychiatry & Neurology Pain Medicine
PROC: HZ42ZZZ Group Counseling for Substance Abuse Treatment, Cognitive-Behavioral (ICD-10-PCS; principal; 2022-05-18)
DX: F10.20 Alcohol dependence, uncomplicated (principal); F14.20 Cocaine dependence, uncomplicated; F19.282 Other psychoactive substance dependence with psychoactive substance-induced sleep disorder; F19.280 Other psychoactive substance dependence with psychoactive substance-induced anxiety disorder; F13.10 Sedative, hypnotic or anxiolytic abuse, uncomplicated; F12.20 Cannabis dependence, uncomplicated; F17.210 Nicotine dependence, cigarettes, uncomplicated; F10.282 Alcohol dependence with alcohol-induced sleep disorder; F51.05 Insomnia due to other mental disorder; F41.1 Generalized anxiety disorder; I10 Essential (primary) hypertension; E78.5 Hyperlipidemia, unspecified; E11.9 Type 2 diabetes mellitus without complications; Z79.84 Long term (current) use of oral hypoglycemic drugs; E66.9 Obesity, unspecified; Z68.30 Body mass index [BMI] 30.0-30.9, adult; Z91.011 Allergy to milk products
CPT/HCPCS: 36415; 80053; 81003; 82962; 85027; 86780; 86803; C9803-CS; U0003; U0005

== ENCOUNTER 2022-07-02 08:18 | Inpatient (IN) | payer OTHER ==
[2022-07-02 09:12] VITALS: BMI 31.4
[2022-07-02] MEDS ORDERED: METHOCARBAMOL 500 MG TABLET PO PRN (09:56)
[2022-07-02] MEDS ORDERED: LOPERAMIDE HCL 2 MG CAPSULE PO PRN (09:56)
[2022-07-02] MEDS ORDERED: BENZOCAINE/MENTHOL (CHLORASEPTIC ) LOZENGE MM PRN (09:56)
[2022-07-02] MEDS ORDERED: DICYCLOMINE HCL 10 MG CAPSULE PO PRN (09:56)
[2022-07-02] MEDS ORDERED: ONDANSETRON *ODT* 4 MG TABLET SL PRN (09:56)
[2022-07-02] MEDS ORDERED: MAG HYDROX/AL HYDROX/SIMETH 30 ML UNIT-DOSE CUP PO PRN (09:56)
[2022-07-02] MEDS ORDERED: MAGNESIUM CITRATE 300 ML BOTTLE PO PRN (09:56)
[2022-07-02] MEDS ORDERED: BISMUTH SUBSALICYLATE 524 MG/30 ML PO PRN (09:56)
[2022-07-02] MEDS ORDERED: NICOTINE 10 MG CARTRIDGE (INHALER) IH PRN (09:56)
[2022-07-02] MEDS ORDERED: ACETAMINOPHEN 325 MG TABLET (FP) PO PRN ×2 (09:56)
[2022-07-02] MEDS ORDERED: IBUPROFEN 400 MG TABLET (FP) PO PRN (09:56)
[2022-07-02] MEDS ORDERED: IBUPROFEN 600 MG TABLET (FP) PO PRN (09:56)
[2022-07-02] MEDS ORDERED: chlordiazePOXIDE HCL 25 MG CAPSULE PO PRN (09:56)
[2022-07-02] MEDS ORDERED: MAGNESIUM HYDROX 2400MG/30ML ORAL SUSPENSION 30 ML CUP PO PRN (09:56)
[2022-07-02] MEDS ORDERED: DOCUSATE SODIUM 100 MG CAPSULE (FP) PO PRN (10:05)
[2022-07-02] MEDS ORDERED: NIFEdipine E.R 60 MG TABLET PO SCH (10:15)
[2022-07-02] MEDS ORDERED: hydrOXYzine PAMOATE 25 MG CAPSULE (FP) PO ONE (10:25)
[2022-07-02] MEDS ORDERED: chlordiazePOXIDE HCL 25 MG CAPSULE ONE (10:25)
[2022-07-02] MEDS: chlordiazePOXIDE HCL 25 MG CAPSULE PO SCH ×3 (10:37→22:38)
[2022-07-02] MEDS: hydrOXYzine PAMOATE 25 MG CAPSULE (FP) PO SCH ×4 (10:37→22:36)
[2022-07-02] MEDS ORDERED: NIFEdipine E.R. 30 MG TABLET PO SCH (11:52)
[2022-07-02] MEDS: PRENATAL VITAMINS W/ FOLIC ACID TABLET (FP) PO SCH (12:15)
[2022-07-02] MEDS: INSULIN (NOVOLOG) ASPART 100 UNITS/ML 10ML VIAL SQ SCH ×3 (12:15→22:36)
[2022-07-02] MEDS: NIFEdipine E.R. 30 MG TABLET PO SCH (12:15)
[2022-07-02] MEDS: CEPHALEXIN MONOHYDRATE 500 MG CAPSULE (UD) PO SCH ×3 (13:32→22:35)
[2022-07-02] MEDS: GABAPENTIN 100 MG CAPSULE PO SCH ×2 (13:32→22:36)
[2022-07-02 17:57] VITALS: RESP 18
[2022-07-02] MEDS: metFORMIN HCL 500 MG TABLET (FP) PO SCH (18:03)
[2022-07-02] MEDS ORDERED: THIAMINE HCL 100 MG TABLET (FP) PO SCH (22:00)
[2022-07-02] MEDS ORDERED: diphenhydrAMINE HCL 25 MG CAPSULE (FP) PO PRN (22:00)
[2022-07-02] MEDS ORDERED: MELATONIN 5 MG TABLETS PO SCH (22:00)
[2022-07-02] MEDS ORDERED: INSULIN SLIDING SCALE (NOVOLOG) 1 VIAL SQ ONE (22:55)
[2022-07-03] MEDS: chlordiazePOXIDE HCL 25 MG CAPSULE PO SCH ×2 (06:25→10:32)
[2022-07-03] MEDS: GABAPENTIN 100 MG CAPSULE PO SCH ×2 (06:26→13:53)
[2022-07-03] MEDS: metFORMIN HCL 500 MG TABLET (FP) PO SCH (06:26)
[2022-07-03] MEDS: hydrOXYzine PAMOATE 25 MG CAPSULE (FP) PO SCH ×3 (06:26→13:54)
[2022-07-03] MEDS ORDERED: INSULIN SLIDING SCALE (NOVOLOG) 1 VIAL SQ ONE (06:39)
[2022-07-03] MEDS: INSULIN (NOVOLOG) ASPART 100 UNITS/ML 10ML VIAL SQ SCH ×2 (06:41→12:44)
[2022-07-03 09:44] VITALS: BP 121/75; PULSE 85; TEMP 97.7
[2022-07-03] MEDS: NIFEdipine E.R. 30 MG TABLET PO SCH (10:31)
[2022-07-03] MEDS: CEPHALEXIN MONOHYDRATE 500 MG CAPSULE (UD) PO SCH ×2 (10:31→13:53)
[2022-07-03] MEDS: PRENATAL VITAMINS W/ FOLIC ACID TABLET (FP) PO SCH (10:32)
[2022-07-03 13:16] LABS: HEMATOCRIT 43.1 % (35.4-49); HEMOGLOBIN 14.6 GM/dL (11.7-16.9); MCH 29.3 pg (25.7-33.7); MCHC 33.8 g/dl (32.0-35.9); MEAN CELL VOLUME 86.6 fl (80-96); MEAN PLT VOLUME 9.7 fl (7.5-11.1); PLATELET COUNT 201 10^3/uL (134-434); RBC 4.97 M/mm3 (4.00-5.60); RDW 14.3 % (11.9-15.9); WHITE BLOOD COUNT 5.3 K/mm3 (4.0-10.0)
[2022-07-03 13:26] LABS: CALCIUM 9.1 mg/dL (8.5-10.1)
[2022-07-03 13:27] LABS: ALBUMIN 3.7 g/dl (3.4-5.0); BLOOD UREA NITROGEN 8.5 mg/dL (7-18)
[2022-07-03 13:30] LABS: CREATININE 0.7 mg/dL (0.55-1.3)
[2022-07-03 13:31] LABS: BILIRUBIN,TOTAL 0.4 mg/dL (0.2-1); TOT PROT 7.4 g/dl (6.4-8.2)
[2022-07-04] MEDS ORDERED: chlordiazePOXIDE HCL 25 MG CAPSULE PO SCH (05:00)
[2022-07-05] MEDS ORDERED: chlordiazePOXIDE HCL 10 MG CAPSULE PO PRN
[2022-07-05] MEDS ORDERED: chlordiazePOXIDE HCL 10 MG CAPSULE PO SCH (05:00)
[2022-07-06] MEDS ORDERED: chlordiazePOXIDE HCL 10 MG CAPSULE PO SCH (05:00)
[2022-07-07] MEDS ORDERED: chlordiazePOXIDE HCL 10 MG CAPSULE PO ONE (05:00)
== END 2022-07-03 13:39 | disposition left against medical advice (07) | DRG 894 ==
LOC: YASAS 08:18 → SUATTDRO 08:18 → Y3N 10:16
PROVIDERS: ADMIT Allergy & Immunology; ATTEND Surgery
PROC: HZ2ZZZZ Detoxification Services for Substance Abuse Treatment (ICD-10-PCS; principal; 2022-07-02)
DX: F10.230 Alcohol dependence with withdrawal, uncomplicated (principal); U07.1 COVID-19; F13.230 Sedative, hypnotic or anxiolytic dependence with withdrawal, uncomplicated; F12.20 Cannabis dependence, uncomplicated; F17.210 Nicotine dependence, cigarettes, uncomplicated; F10.282 Alcohol dependence with alcohol-induced sleep disorder; F32.A Depression, unspecified; F41.9 Anxiety disorder, unspecified; E78.5 Hyperlipidemia, unspecified; I10 Essential (primary) hypertension; E11.9 Type 2 diabetes mellitus without complications; Z79.84 Long term (current) use of oral hypoglycemic drugs; Z86.19 Personal history of other infectious and parasitic diseases; Z91.011 Allergy to milk products
CPT/HCPCS: 36415; 80053; 82962; 85027; 86780; 87811; C9803-CS; U0003; U0005

== ENCOUNTER 2022-07-10 09:56 | Inpatient (IN) | payer OTHER ==
[2022-07-10 12:49] VITALS: BMI 31.8
[2022-07-10] MEDS ORDERED: DICYCLOMINE HCL 10 MG CAPSULE PO PRN (16:10)
[2022-07-10] MEDS ORDERED: MAGNESIUM CITRATE 300 ML BOTTLE PO PRN (16:10)
[2022-07-10] MEDS ORDERED: BISMUTH SUBSALICYLATE 524 MG/30 ML PO PRN (16:10)
[2022-07-10] MEDS ORDERED: ONDANSETRON *ODT* 4 MG TABLET SL PRN (16:10)
[2022-07-10] MEDS ORDERED: ACETAMINOPHEN 325 MG TABLET (FP) PO PRN ×2 (16:10)
[2022-07-10] MEDS ORDERED: MAG HYDROX/AL HYDROX/SIMETH 30 ML UNIT-DOSE CUP PO PRN (16:10)
[2022-07-10] MEDS ORDERED: IBUPROFEN 600 MG TABLET (FP) PO PRN (16:10)
[2022-07-10] MEDS ORDERED: LOPERAMIDE HCL 2 MG CAPSULE PO PRN (16:10)
[2022-07-10] MEDS ORDERED: BENZOCAINE/MENTHOL (CHLORASEPTIC ) LOZENGE MM PRN (16:10)
[2022-07-10] MEDS ORDERED: chlordiazePOXIDE HCL 25 MG CAPSULE PO PRN (16:10)
[2022-07-10] MEDS ORDERED: MAGNESIUM HYDROX 2400MG/30ML ORAL SUSPENSION 30 ML CUP PO PRN (16:10)
[2022-07-10] MEDS ORDERED: METHOCARBAMOL 500 MG TABLET PO PRN (16:10)
[2022-07-10] MEDS ORDERED: NICOTINE POLACRILEX 2 MG GUM BUC PRN (16:10)
[2022-07-10] MEDS ORDERED: IBUPROFEN 400 MG TABLET (FP) PO PRN (16:10)
[2022-07-10] MEDS ORDERED: NICOTINE 10 MG CARTRIDGE (INHALER) IH PRN (16:10)
[2022-07-10] MEDS ORDERED: BACITRACIN/POLYMYXIN B SULFATE 15 GM TUBE TP PRN (16:19)
[2022-07-10] MEDS: hydrOXYzine PAMOATE 25 MG CAPSULE (FP) PO SCH ×2 (17:31→22:42)
[2022-07-10] MEDS: chlordiazePOXIDE HCL 25 MG CAPSULE PO SCH ×2 (17:31→22:42)
[2022-07-10] MEDS: PRENATAL VITAMINS W/ FOLIC ACID TABLET (FP) PO SCH (17:55)
[2022-07-10] MEDS: NIFEdipine E.R 60 MG TABLET PO SCH (20:21)
[2022-07-10] MEDS ORDERED: MELATONIN 5 MG TABLETS PO SCH (22:00)
[2022-07-10] MEDS: THIAMINE HCL 100 MG TABLET (FP) PO SCH (22:42)
[2022-07-11] MEDS: chlordiazePOXIDE HCL 25 MG CAPSULE PO SCH ×4 (05:21→22:07)
[2022-07-11] MEDS: hydrOXYzine PAMOATE 25 MG CAPSULE (FP) PO SCH ×6 (05:21→23:27)
[2022-07-11] MEDS: metFORMIN HCL 500 MG TABLET (FP) PO SCH ×2 (07:06→16:45)
[2022-07-11] MEDS: PRENATAL VITAMINS W/ FOLIC ACID TABLET (FP) PO SCH (10:37)
[2022-07-11] MEDS: NIFEdipine E.R 60 MG TABLET PO SCH (10:37)
[2022-07-11 11:01] LABS: BLOOD UREA NITROGEN 8.2 mg/dL (7-18); CALCIUM 9.2 mg/dL (8.5-10.1)
[2022-07-11 11:04] LABS: CREATININE 0.7 mg/dL (0.55-1.3)
[2022-07-11 11:06] LABS: BILIRUBIN,TOTAL 0.6 mg/dL (0.2-1); TOT PROT 7.7 g/dl (6.4-8.2)
[2022-07-11 11:10] LABS: HEMOGLOBIN 15.8 GM/dL (11.7-16.9); MCH 29.4 pg (25.7-33.7); MCHC 34.3 g/dl (32.0-35.9); MEAN CELL VOLUME 85.8 fl (80-96); MEAN PLT VOLUME 9.7 fl (7.5-11.1); PLATELET COUNT 239 10^3/uL (134-434); RBC 5.36 M/mm3 (4.00-5.60); RDW 14.4 % (11.9-15.9); WHITE BLOOD COUNT 4.8 K/mm3 (4.0-10.0)
[2022-07-11 12:23] LABS: HIV INTERPRETATION NEGATIVE (NEGATIVE)
[2022-07-11] MEDS: GABAPENTIN 100 MG CAPSULE PO SCH ×2 (13:23→22:07)
[2022-07-11] MEDS ORDERED: diphenhydrAMINE HCL 25 MG CAPSULE (FP) PO PRN (22:00)
[2022-07-11] MEDS: THIAMINE HCL 100 MG TABLET (FP) PO SCH (22:07)
[2022-07-12] MEDS: GABAPENTIN 100 MG CAPSULE PO SCH ×2 (05:10→14:06)
[2022-07-12] MEDS: hydrOXYzine PAMOATE 25 MG CAPSULE (FP) PO SCH ×4 (05:10→17:37)
[2022-07-12] MEDS: chlordiazePOXIDE HCL 25 MG CAPSULE PO SCH ×3 (05:11→17:37)
[2022-07-12 06:08] VITALS: RESP 18
[2022-07-12] MEDS: metFORMIN HCL 500 MG TABLET (FP) PO SCH ×2 (06:12→17:37)
[2022-07-12] MEDS ORDERED: INSULIN (NOVOLOG) ASPART 100 UNITS/ML 10ML VIAL SQ ONE (07:20)
[2022-07-12] MEDS: PRENATAL VITAMINS W/ FOLIC ACID TABLET (FP) PO SCH (10:49)
[2022-07-12] MEDS: NIFEdipine E.R 60 MG TABLET PO SCH (10:49)
[2022-07-12] MEDS ORDERED: INSULIN (NOVOLOG) ASPART 100 UNITS/ML 10ML VIAL ONE ×2 (11:22→17:09)
[2022-07-12] MEDS: INSULIN SLIDING SCALE (NOVOLOG) 1 VIAL SQ SCH ×2 (11:29→17:37)
[2022-07-12 13:18] VITALS: BP 139/74; PULSE 74; TEMP 98
[2022-07-13] MEDS ORDERED: chlordiazePOXIDE HCL 10 MG CAPSULE PO PRN
[2022-07-13] MEDS ORDERED: chlordiazePOXIDE HCL 10 MG CAPSULE PO SCH (05:00)
[2022-07-14] MEDS ORDERED: chlordiazePOXIDE HCL 10 MG CAPSULE PO SCH (05:00)
[2022-07-15] MEDS ORDERED: chlordiazePOXIDE HCL 10 MG CAPSULE PO ONE (05:00)
== END 2022-07-12 19:40 | disposition left against medical advice (07) | DRG 894 ==
LOC: YASAS 09:56 → Y6N 16:28
PROVIDERS: ADMIT Allergy & Immunology; ATTEND Surgery
PROC: HZ2ZZZZ Detoxification Services for Substance Abuse Treatment (ICD-10-PCS; principal; 2022-07-10)
DX: F10.230 Alcohol dependence with withdrawal, uncomplicated (principal); U07.1 COVID-19; F19.282 Other psychoactive substance dependence with psychoactive substance-induced sleep disorder; F19.280 Other psychoactive substance dependence with psychoactive substance-induced anxiety disorder; F13.230 Sedative, hypnotic or anxiolytic dependence with withdrawal, uncomplicated; F12.20 Cannabis dependence, uncomplicated; F17.210 Nicotine dependence, cigarettes, uncomplicated; F41.1 Generalized anxiety disorder; E11.9 Type 2 diabetes mellitus without complications; Z79.84 Long term (current) use of oral hypoglycemic drugs; E66.9 Obesity, unspecified; Z68.31 Body mass index [BMI] 31.0-31.9, adult; Z86.19 Personal history of other infectious and parasitic diseases; Z56.0 Unemployment, unspecified; Z91.011 Allergy to milk products
CPT/HCPCS: 36415; 80053; 82962; 85027; 86780; 87389; 87811; C9803-CS; U0003; U0005

== ENCOUNTER 2022-10-06 16:55 | Inpatient (IN) | payer OTHER ==
[2022-10-06 17:49] VITALS: BMI 31.8
[2022-10-06] MEDS ORDERED: IBUPROFEN 600 MG TABLET (FP) PO PRN (18:20)
[2022-10-06] MEDS ORDERED: DICYCLOMINE HCL 10 MG CAPSULE PO PRN (18:20)
[2022-10-06] MEDS ORDERED: guaiFENesin 200 MG/10 ML 10 ML UNIT-DOSE CUPS PO PRN (18:20)
[2022-10-06] MEDS ORDERED: BENZOCAINE/MENTHOL (CHLORASEPTIC ) LOZENGE MM PRN (18:20)
[2022-10-06] MEDS ORDERED: POLYETHYLENE GLYCOL (HEALTHYLAX) 3350 17 GM PACKET PO PRN (18:20)
[2022-10-06] MEDS ORDERED: DOCUSATE SODIUM 100 MG CAPSULE (FP) PO PRN (18:20)
[2022-10-06] MEDS ORDERED: MAGNESIUM HYDROX 2400MG/30ML ORAL SUSPENSION 30 ML CUP PO PRN (18:20)
[2022-10-06] MEDS ORDERED: P-EPHED 60MG/TRIPROLIDI 2.5MG TABLET PO PRN (18:20)
[2022-10-06] MEDS ORDERED: NICOTINE POLACRILEX 2 MG GUM BUC PRN (18:20)
[2022-10-06] MEDS ORDERED: ACETAMINOPHEN 325 MG TABLET (FP) PO PRN ×2 (18:20)
[2022-10-06] MEDS ORDERED: LOPERAMIDE HCL 2 MG CAPSULE PO PRN (18:20)
[2022-10-06] MEDS ORDERED: BISMUTH SUBSALICYLATE 524 MG/30 ML PO PRN (18:20)
[2022-10-06] MEDS ORDERED: ONDANSETRON *ODT* 4 MG TABLET SL PRN (18:20)
[2022-10-06] MEDS ORDERED: IBUPROFEN 400 MG TABLET (FP) PO PRN (18:20)
[2022-10-06] MEDS ORDERED: MAG HYDROX/AL HYDROX/SIMETH 30 ML UNIT-DOSE CUP PO PRN (18:20)
[2022-10-06] MEDS: THIAMINE HCL 100 MG TABLET (FP) PO SCH (22:27)
[2022-10-06] MEDS: MELATONIN 5 MG TABLETS PO SCH (22:27)
[2022-10-06] MEDS: diazePAM 5 MG TABLET PO PRN (22:28)
[2022-10-07] MEDS: metFORMIN HCL 500 MG TABLET (FP) PO SCH ×2 (06:30→16:58)
[2022-10-07] MEDS: PRENATAL VITAMINS W/ FOLIC ACID TABLET (FP) PO SCH (10:18)
[2022-10-07] MEDS: diazePAM 5 MG TABLET PO PRN ×3 (10:20→22:24)
[2022-10-07 12:54] LABS: HEMATOCRIT 47.1 % (35.4-49); HEMOGLOBIN 15.7 GM/dL (11.7-16.9); MCH 28.8 pg (25.7-33.7); MCHC 33.4 g/dl (32.0-35.9); MEAN CELL VOLUME 86.4 fl (80-96); MEAN PLT VOLUME 10.2 fl (7.5-11.1); PLATELET COUNT 207 10^3/uL (134-434); RBC 5.45 M/mm3 (4.00-5.60); RDW 14.3 % (11.9-15.9); WHITE BLOOD COUNT 5.2 K/mm3 (4.0-10.0)
[2022-10-07 12:57] LABS: CHLORIDE 100 mmol/L (98-107); SODIUM 137 mmol/L (136-145)
[2022-10-07 13:06] LABS: CALCIUM 9.8 mg/dL (8.5-10.1)
[2022-10-07 13:07] LABS: ALBUMIN 3.8 g/dl (3.4-5.0); ANION GAP 9 MMOL/L (8-16); BLOOD UREA NITROGEN 9.2 mg/dL (7-18); CO2 29 mmol/L (21-32)
[2022-10-07 13:10] LABS: CREATININE 0.8 mg/dL (0.55-1.3); SGOT/AST 13 U/L (15-37); SGPT/ALT 24 U/L (13-61)
[2022-10-07 13:12] LABS: BILIRUBIN,TOTAL 0.6 mg/dL (0.2-1); TOT PROT 7.3 g/dl (6.4-8.2)
[2022-10-07 13:13] LABS: ALK PHOS 84 U/L (45-117)
[2022-10-07 13:20] LABS: SYPHILIS W/ RPR CONF NON-REACTIVE (NONREACTIVE)
[2022-10-07 13:23] LABS: GLUCOSE,RANDOM 417 mg/dL (74-106)
[2022-10-07] MEDS: hydrOXYzine PAMOATE 25 MG CAPSULE (FP) PO PRN (16:58)
[2022-10-07] MEDS: INSULIN SLIDING SCALE (NOVOLOG) 1 VIAL SQ SCH ×2 (19:20→23:29)
[2022-10-07] MEDS ORDERED: INSULIN (NOVOLOG) ASPART 100 UNITS/ML 10ML VIAL ONE (19:22)
[2022-10-07] MEDS: BACITRACIN/POLYMYXIN B SULFATE 15 GM TUBE TP PRN (22:24)
[2022-10-07] MEDS: MELATONIN 5 MG TABLETS PO SCH (22:24)
[2022-10-07] MEDS: THIAMINE HCL 100 MG TABLET (FP) PO SCH (22:25)
[2022-10-08] MEDS ORDERED: INSULIN (NOVOLOG) ASPART 100 UNITS/ML 10ML VIAL ONE ×3 (05:41→17:08)
[2022-10-08] MEDS: metFORMIN HCL 500 MG TABLET (FP) PO SCH ×2 (07:19→17:14)
[2022-10-08] MEDS: INSULIN SLIDING SCALE (NOVOLOG) 1 VIAL SQ SCH ×4 (07:20→22:09)
[2022-10-08] MEDS: BACITRACIN/POLYMYXIN B SULFATE 15 GM TUBE TP PRN ×2 (10:20→22:12)
[2022-10-08] MEDS: diazePAM 5 MG TABLET PO PRN (10:20)
[2022-10-08] MEDS: PRENATAL VITAMINS W/ FOLIC ACID TABLET (FP) PO SCH (10:20)
[2022-10-08] MEDS: diazePAM 5 MG TABLET PO SCH ×2 (17:14→22:12)
[2022-10-08] MEDS: MELATONIN 5 MG TABLETS PO SCH (22:09)
[2022-10-08] MEDS: THIAMINE HCL 100 MG TABLET (FP) PO SCH (22:12)
[2022-10-08 22:37] LABS: HIV INTERPRETATION NEGATIVE (NEGATIVE)
[2022-10-09] MEDS: diazePAM 5 MG TABLET PO SCH ×3 (05:52→23:50)
[2022-10-09] MEDS: metFORMIN HCL 500 MG TABLET (FP) PO SCH ×2 (06:12→17:14)
[2022-10-09] MEDS: INSULIN SLIDING SCALE (NOVOLOG) 1 VIAL SQ SCH ×4 (06:13→22:32)
[2022-10-09] MEDS: PRENATAL VITAMINS W/ FOLIC ACID TABLET (FP) PO SCH (09:58)
[2022-10-09] MEDS: hydrOXYzine PAMOATE 25 MG CAPSULE (FP) PO PRN (09:58)
[2022-10-09] MEDS: diazePAM 5 MG TABLET PO PRN (09:59)
[2022-10-09] MEDS: METHOCARBAMOL 500 MG TABLET PO PRN (09:59)
[2022-10-09] MEDS ORDERED: INSULIN (NOVOLOG) ASPART 100 UNITS/ML 10ML VIAL ONE ×3 (11:33→22:34)
[2022-10-09] MEDS: THIAMINE HCL 100 MG TABLET (FP) PO SCH (23:50)
[2022-10-09] MEDS: MELATONIN 5 MG TABLETS PO SCH (23:50)
[2022-10-10] MEDS: diazePAM 5 MG TABLET PO SCH ×2 (05:36→17:37)
[2022-10-10] MEDS ORDERED: INSULIN (NOVOLOG) ASPART 100 UNITS/ML 10ML VIAL ONE ×3 (07:28→17:35)
[2022-10-10] MEDS: metFORMIN HCL 500 MG TABLET (FP) PO SCH ×2 (07:28→17:30)
[2022-10-10] MEDS: INSULIN SLIDING SCALE (NOVOLOG) 1 VIAL SQ SCH ×4 (07:57→23:23)
[2022-10-10] MEDS: hydrOXYzine PAMOATE 25 MG CAPSULE (FP) PO PRN (10:24)
[2022-10-10] MEDS: PRENATAL VITAMINS W/ FOLIC ACID TABLET (FP) PO SCH (10:24)
[2022-10-10] MEDS: METHOCARBAMOL 500 MG TABLET PO PRN (10:24)
[2022-10-10 16:59] VITALS: RESP 18
[2022-10-10] MEDS: THIAMINE HCL 100 MG TABLET (FP) PO SCH (23:23)
[2022-10-10] MEDS: MELATONIN 5 MG TABLETS PO SCH (23:23)
[2022-10-11] MEDS ORDERED: INSULIN (NOVOLOG) ASPART 100 UNITS/ML 10ML VIAL ONE (03:59)
[2022-10-11] MEDS ORDERED: diazePAM 5 MG TABLET PO ONE (06:00)
[2022-10-11 07:20] VITALS: BP 145/92; PULSE 85; TEMP 97.4
[2022-10-11] MEDS: metFORMIN HCL 500 MG TABLET (FP) PO SCH (07:38)
[2022-10-11] MEDS: INSULIN SLIDING SCALE (NOVOLOG) 1 VIAL SQ SCH (07:39)
== END 2022-10-11 08:50 | disposition home or self-care (01) | DRG 897 ==
LOC: YASAS 16:55 → Y6N 21:09
PROVIDERS: ADMIT Allergy & Immunology; ATTEND Surgery
PROC: HZ2ZZZZ Detoxification Services for Substance Abuse Treatment (ICD-10-PCS; principal; 2022-10-06)
DX: F10.230 Alcohol dependence with withdrawal, uncomplicated (principal); F17.210 Nicotine dependence, cigarettes, uncomplicated; R41.9 Unspecified symptoms and signs involving cognitive functions and awareness; F32.A Depression, unspecified; I10 Essential (primary) hypertension; E78.5 Hyperlipidemia, unspecified; E11.9 Type 2 diabetes mellitus without complications; Z79.84 Long term (current) use of oral hypoglycemic drugs; E66.9 Obesity, unspecified; Z68.31 Body mass index [BMI] 31.0-31.9, adult; Z86.19 Personal history of other infectious and parasitic diseases
CPT/HCPCS: 36415; 80053; 82962; 85027; 86780; 87389; C9803-CS; U0003; U0005

== ENCOUNTER 2022-11-06 14:24 | Inpatient (IN) | payer OTHER ==
[2022-11-06 14:50] VITALS: BMI 31.8
[2022-11-06] MEDS ORDERED: MAG HYDROX/AL HYDROX/SIMETH 30 ML UNIT-DOSE CUP PO PRN (16:36)
[2022-11-06] MEDS ORDERED: IBUPROFEN 600 MG TABLET (FP) PO PRN (16:36)
[2022-11-06] MEDS ORDERED: DICYCLOMINE HCL 10 MG CAPSULE PO PRN (16:36)
[2022-11-06] MEDS ORDERED: NICOTINE POLACRILEX 2 MG GUM BUC PRN (16:36)
[2022-11-06] MEDS ORDERED: BISMUTH SUBSALICYLATE 524 MG/30 ML PO PRN (16:36)
[2022-11-06] MEDS ORDERED: METHOCARBAMOL 500 MG TABLET PO PRN (16:36)
[2022-11-06] MEDS ORDERED: ONDANSETRON *ODT* 4 MG TABLET SL PRN (16:36)
[2022-11-06] MEDS ORDERED: POLYETHYLENE GLYCOL (HEALTHYLAX) 3350 17 GM PACKET PO PRN (16:36)
[2022-11-06] MEDS ORDERED: BENZOCAINE/MENTHOL (CHLORASEPTIC ) LOZENGE MM PRN (16:36)
[2022-11-06] MEDS ORDERED: ACETAMINOPHEN 325 MG TABLET (FP) PO PRN ×2 (16:36)
[2022-11-06] MEDS ORDERED: NICOTINE 10 MG CARTRIDGE (INHALER) IH PRN (16:36)
[2022-11-06] MEDS ORDERED: LOPERAMIDE HCL 2 MG CAPSULE PO PRN (16:36)
[2022-11-06] MEDS ORDERED: NALOXONE HCL (KLOXXADO) 8 MG SPRAY NS PRN (16:36)
[2022-11-06] MEDS ORDERED: IBUPROFEN 400 MG TABLET (FP) PO PRN (16:36)
[2022-11-06] MEDS: NIFEdipine E.R. 30 MG TABLET PO SCH (17:54)
[2022-11-06] MEDS: PRENATAL VITAMINS W/ FOLIC ACID TABLET (FP) PO SCH (17:54)
[2022-11-06] MEDS: chlordiazePOXIDE HCL 25 MG CAPSULE PO SCH ×2 (17:55→22:31)
[2022-11-06] MEDS: MELATONIN 5 MG TABLETS PO SCH (22:30)
[2022-11-06] MEDS: THIAMINE HCL 100 MG TABLET (FP) PO SCH (22:34)
[2022-11-06] MEDS: ROSUVASTATIN CA 20 MG TABLET PO SCH (22:34)
[2022-11-07] MEDS: chlordiazePOXIDE HCL 25 MG CAPSULE PO SCH ×4 (05:16→22:10)
[2022-11-07] MEDS: metFORMIN HCL 500 MG TABLET (FP) PO SCH ×2 (06:27→16:58)
[2022-11-07] MEDS ORDERED: INSULIN (NOVOLOG) ASPART 100 UNITS/ML 10ML VIAL SQ ONE (08:00)
[2022-11-07] MEDS: PRENATAL VITAMINS W/ FOLIC ACID TABLET (FP) PO SCH (10:06)
[2022-11-07] MEDS: NIFEdipine E.R. 30 MG TABLET PO SCH (10:06)
[2022-11-07] MEDS ORDERED: INSULIN SLIDING SCALE (NOVOLOG) 1 VIAL SQ ONE ×4 (11:17→22:42)
[2022-11-07] MEDS: INSULIN (NOVOLOG) ASPART 100 UNITS/ML 10ML VIAL SQ SCH ×3 (11:53→22:12)
[2022-11-07 12:08] LABS: HEMATOCRIT 45.2 % (35.4-49); HEMOGLOBIN 15.1 GM/dL (11.7-16.9); MCHC 33.4 g/dl (32.0-35.9); MEAN CELL VOLUME 86.9 fl (80-96); MEAN PLT VOLUME 10.2 fl (7.5-11.1); PLATELET COUNT 212 10^3/uL (134-434); RDW 14.3 % (11.9-15.9); WHITE BLOOD COUNT 5.2 K/mm3 (4.0-10.0)
[2022-11-07 12:13] LABS: CHLORIDE 102 mmol/L (98-107); SODIUM 138 mmol/L (136-145)
[2022-11-07 12:15] LABS: ALBUMIN 3.5 g/dl (3.4-5.0); ANION GAP 10 MMOL/L (8-16); BLOOD UREA NITROGEN 8.1 mg/dL (7-18); CO2 26 mmol/L (21-32)
[2022-11-07 12:16] LABS: CALCIUM 8.9 mg/dL (8.5-10.1)
[2022-11-07 12:18] LABS: CREATININE 0.8 mg/dL (0.55-1.3); SGOT/AST 11 U/L (15-37); SGPT/ALT 16 U/L (13-61)
[2022-11-07 12:20] LABS: BILIRUBIN,TOTAL 0.6 mg/dL (0.2-1); TOT PROT 6.8 g/dl (6.4-8.2)
[2022-11-07 12:21] LABS: ALK PHOS 77 U/L (45-117); GLUCOSE,RANDOM 442 mg/dL (74-106)
[2022-11-07] MEDS: MAGNESIUM HYDROX 2400MG/30ML ORAL SUSPENSION 30 ML CUP PO PRN (13:05)
[2022-11-07 19:59] LABS: HIV INTERPRETATION NEGATIVE (NEGATIVE)
[2022-11-07] MEDS: MELATONIN 5 MG TABLETS PO SCH (22:10)
[2022-11-07] MEDS: THIAMINE HCL 100 MG TABLET (FP) PO SCH (22:10)
[2022-11-07] MEDS: ROSUVASTATIN CA 20 MG TABLET PO SCH (22:10)
[2022-11-08] MEDS ORDERED: INSULIN (NOVOLOG MIX 70/30) 100 UNITS/ML MDV SQ ONE (05:32)
[2022-11-08] MEDS: chlordiazePOXIDE HCL 25 MG CAPSULE PO SCH ×4 (05:32→22:28)
[2022-11-08] MEDS ORDERED: INSULIN SLIDING SCALE (NOVOLOG) 1 VIAL SQ ONE ×5 (06:01→23:54)
[2022-11-08] MEDS: INSULIN (NOVOLOG) ASPART 100 UNITS/ML 10ML VIAL SQ SCH ×4 (06:01→22:29)
[2022-11-08] MEDS: metFORMIN HCL 500 MG TABLET (FP) PO SCH ×2 (06:02→17:27)
[2022-11-08] MEDS: PRENATAL VITAMINS W/ FOLIC ACID TABLET (FP) PO SCH (10:12)
[2022-11-08] MEDS: NIFEdipine E.R. 30 MG TABLET PO SCH (10:13)
[2022-11-08] MEDS: THIAMINE HCL 100 MG TABLET (FP) PO SCH (22:28)
[2022-11-08] MEDS: MELATONIN 5 MG TABLETS PO SCH (22:28)
[2022-11-08] MEDS: ROSUVASTATIN CA 20 MG TABLET PO SCH (22:28)
[2022-11-09] MEDS: chlordiazePOXIDE HCL 10 MG CAPSULE PO SCH ×4 (05:21→22:14)
[2022-11-09] MEDS: metFORMIN HCL 500 MG TABLET (FP) PO SCH ×2 (06:02→17:39)
[2022-11-09] MEDS ORDERED: INSULIN SLIDING SCALE (NOVOLOG) 1 VIAL SQ ONE ×2 (08:18→11:34)
[2022-11-09] MEDS: INSULIN (NOVOLOG) ASPART 100 UNITS/ML 10ML VIAL SQ SCH ×4 (08:18→22:16)
[2022-11-09] MEDS: PRENATAL VITAMINS W/ FOLIC ACID TABLET (FP) PO SCH (10:13)
[2022-11-09] MEDS: NIFEdipine E.R. 30 MG TABLET PO SCH (10:14)
[2022-11-09] MEDS: MAGNESIUM HYDROX 2400MG/30ML ORAL SUSPENSION 30 ML CUP PO PRN (10:19)
[2022-11-09] MEDS: ROSUVASTATIN CA 20 MG TABLET PO SCH (22:15)
[2022-11-09] MEDS: MELATONIN 5 MG TABLETS PO SCH (22:15)
[2022-11-09] MEDS: THIAMINE HCL 100 MG TABLET (FP) PO SCH (22:15)
[2022-11-10] MEDS: chlordiazePOXIDE HCL 10 MG CAPSULE PO SCH ×2 (05:11→17:05)
[2022-11-10] MEDS: metFORMIN HCL 500 MG TABLET (FP) PO SCH ×2 (06:01→17:01)
[2022-11-10] MEDS: INSULIN (NOVOLOG) ASPART 100 UNITS/ML 10ML VIAL SQ SCH ×4 (06:05→21:46)
[2022-11-10] MEDS ORDERED: INSULIN SLIDING SCALE (NOVOLOG) 1 VIAL SQ ONE (06:51)
[2022-11-10] MEDS: NIFEdipine E.R. 30 MG TABLET PO SCH (10:05)
[2022-11-10] MEDS: PRENATAL VITAMINS W/ FOLIC ACID TABLET (FP) PO SCH (10:05)
[2022-11-10] MEDS ORDERED: LACTULOSE 20 GM/30 ML UDC (FOR ORAL USE ONLY) PO ONE (10:30)
[2022-11-10] MEDS: ROSUVASTATIN CA 20 MG TABLET PO SCH (21:40)
[2022-11-10] MEDS: THIAMINE HCL 100 MG TABLET (FP) PO SCH (21:40)
[2022-11-10] MEDS: MELATONIN 5 MG TABLETS PO SCH (21:40)
[2022-11-11] MEDS ORDERED: chlordiazePOXIDE HCL 10 MG CAPSULE PO ONE (05:00)
[2022-11-11] MEDS: INSULIN (NOVOLOG) ASPART 100 UNITS/ML 10ML VIAL SQ SCH ×4 (07:27→21:41)
[2022-11-11] MEDS: metFORMIN HCL 500 MG TABLET (FP) PO SCH ×2 (07:27→17:35)
[2022-11-11] MEDS: PRENATAL VITAMINS W/ FOLIC ACID TABLET (FP) PO SCH (09:58)
[2022-11-11] MEDS: NIFEdipine E.R. 30 MG TABLET PO SCH (09:58)
[2022-11-11] MEDS: MELATONIN 5 MG TABLETS PO SCH (21:38)
[2022-11-11] MEDS: THIAMINE HCL 100 MG TABLET (FP) PO SCH (21:38)
[2022-11-11] MEDS: ROSUVASTATIN CA 20 MG TABLET PO SCH (22:03)
[2022-11-12] MEDS: metFORMIN HCL 500 MG TABLET (FP) PO SCH ×2 (06:05→16:34)
[2022-11-12] MEDS: INSULIN (NOVOLOG) ASPART 100 UNITS/ML 10ML VIAL SQ SCH ×4 (06:06→21:10)
[2022-11-12] MEDS: PRENATAL VITAMINS W/ FOLIC ACID TABLET (FP) PO SCH (09:37)
[2022-11-12] MEDS: NIFEdipine E.R. 30 MG TABLET PO SCH (09:37)
[2022-11-12] MEDS ORDERED: hydrOXYzine PAMOATE 25 MG CAPSULE (FP) PO PRN (12:34)
[2022-11-12] MEDS: ROSUVASTATIN CA 20 MG TABLET PO SCH (21:10)
[2022-11-12] MEDS: MELATONIN 5 MG TABLETS PO SCH (21:10)
[2022-11-12] MEDS: THIAMINE HCL 100 MG TABLET (FP) PO SCH (21:10)
[2022-11-13] MEDS: INSULIN (NOVOLOG) ASPART 100 UNITS/ML 10ML VIAL SQ SCH ×4 (06:06→21:47)
[2022-11-13] MEDS: metFORMIN HCL 500 MG TABLET (FP) PO SCH ×2 (06:06→17:33)
[2022-11-13] MEDS: NIFEdipine E.R. 30 MG TABLET PO SCH (10:06)
[2022-11-13] MEDS: PRENATAL VITAMINS W/ FOLIC ACID TABLET (FP) PO SCH (10:06)
[2022-11-13] MEDS: ROSUVASTATIN CA 20 MG TABLET PO SCH (21:47)
[2022-11-13] MEDS: MELATONIN 5 MG TABLETS PO SCH (21:47)
[2022-11-13] MEDS: THIAMINE HCL 100 MG TABLET (FP) PO SCH (21:47)
[2022-11-14] MEDS: metFORMIN HCL 500 MG TABLET (FP) PO SCH (06:33)
[2022-11-14] MEDS: INSULIN (NOVOLOG) ASPART 100 UNITS/ML 10ML VIAL SQ SCH (06:33)
[2022-11-14 07:06] VITALS: RESP 18
[2022-11-14 09:23] VITALS: BP 151/93; PULSE 96; TEMP 97.5
== END 2022-11-14 09:19 | disposition home or self-care (01) | DRG 895 ==
LOC: YASAS 14:24 → Y3N 17:15 → Y3W 11-11 18:22
PROVIDERS: ADMIT Allergy & Immunology; ATTEND Surgery
PROC: HZ2ZZZZ Detoxification Services for Substance Abuse Treatment (ICD-10-PCS; 2022-11-06)
PROC: HZ42ZZZ Group Counseling for Substance Abuse Treatment, Cognitive-Behavioral (ICD-10-PCS; principal; 2022-11-11)
DX: F10.20 Alcohol dependence, uncomplicated (principal); F12.20 Cannabis dependence, uncomplicated; F17.210 Nicotine dependence, cigarettes, uncomplicated; F41.8 Other specified anxiety disorders; F32.A Depression, unspecified; I10 Essential (primary) hypertension; E78.5 Hyperlipidemia, unspecified; E11.9 Type 2 diabetes mellitus without complications; Z79.84 Long term (current) use of oral hypoglycemic drugs; K59.00 Constipation, unspecified; E66.9 Obesity, unspecified; Z68.31 Body mass index [BMI] 31.0-31.9, adult; Z86.19 Personal history of other infectious and parasitic diseases
CPT/HCPCS: 36415; 80053; 82962; 85027; 86780; 87389; C9803-CS; U0003; U0005

== ENCOUNTER 2022-12-10 10:01 | Inpatient (IN) | payer OTHER ==
[2022-12-10] MEDS ORDERED: LOPERAMIDE HCL 2 MG CAPSULE PO PRN (13:13)
[2022-12-10] MEDS ORDERED: IBUPROFEN 600 MG TABLET (FP) PO PRN (13:13)
[2022-12-10] MEDS ORDERED: BENZOCAINE/MENTHOL (CHLORASEPTIC ) LOZENGE MM PRN (13:13)
[2022-12-10] MEDS ORDERED: ACETAMINOPHEN 325 MG TABLET (FP) PO PRN ×2 (13:13)
[2022-12-10] MEDS ORDERED: ONDANSETRON *ODT* 4 MG TABLET SL PRN (13:13)
[2022-12-10] MEDS ORDERED: IBUPROFEN 400 MG TABLET (FP) PO PRN (13:13)
[2022-12-10] MEDS ORDERED: METHOCARBAMOL 500 MG TABLET PO PRN (13:13)
[2022-12-10] MEDS ORDERED: POLYETHYLENE GLYCOL (HEALTHYLAX) 3350 17 GM PACKET PO PRN (13:13)
[2022-12-10] MEDS ORDERED: NALOXONE HCL (KLOXXADO) 8 MG SPRAY NS PRN (13:13)
[2022-12-10] MEDS ORDERED: MAGNESIUM HYDROX 2400MG/30ML ORAL SUSPENSION 30 ML CUP PO PRN (13:13)
[2022-12-10] MEDS ORDERED: hydrOXYzine PAMOATE 25 MG CAPSULE (FP) PO PRN (13:13)
[2022-12-10] MEDS ORDERED: BISMUTH SUBSALICYLATE 524 MG/30 ML PO PRN (13:13)
[2022-12-10] MEDS ORDERED: MAG HYDROX/AL HYDROX/SIMETH 30 ML UNIT-DOSE CUP PO PRN (13:13)
[2022-12-10] MEDS ORDERED: DICYCLOMINE HCL 10 MG CAPSULE PO PRN (13:13)
[2022-12-10] MEDS: metFORMIN HCL 500 MG TABLET (FP) PO SCH (17:16)
[2022-12-10] MEDS: INSULIN SLIDING SCALE (NOVOLOG) 1 VIAL SQ SCH ×2 (17:35→21:29)
[2022-12-10] MEDS: MELATONIN 5 MG TABLETS PO SCH (21:28)
[2022-12-10] MEDS: ROSUVASTATIN CA 20 MG TABLET PO SCH (21:28)
[2022-12-10] MEDS: THIAMINE HCL 100 MG TABLET (FP) PO SCH (21:28)
[2022-12-11] MEDS: metFORMIN HCL 500 MG TABLET (FP) PO SCH ×2 (06:07→16:57)
[2022-12-11] MEDS: INSULIN SLIDING SCALE (NOVOLOG) 1 VIAL SQ SCH ×4 (06:07→21:58)
[2022-12-11] MEDS ORDERED: chlordiazePOXIDE HCL 25 MG CAPSULE PO PRN (09:27)
[2022-12-11] MEDS: chlordiazePOXIDE HCL 25 MG CAPSULE PO SCH ×3 (10:11→21:59)
[2022-12-11] MEDS: NIFEdipine E.R. 30 MG TABLET PO SCH (10:13)
[2022-12-11] MEDS: DOCUSATE SODIUM 100 MG CAPSULE (FP) PO SCH ×2 (10:13→21:57)
[2022-12-11] MEDS: PRENATAL VITAMINS W/ FOLIC ACID TABLET (FP) PO SCH (10:14)
[2022-12-11 14:06] LABS: HEMATOCRIT 43.3 % (35.4-49); HEMOGLOBIN 14.9 GM/dL (11.7-16.9); MCH 30.3 pg (25.7-33.7); MCHC 34.4 g/dl (32.0-35.9); MEAN PLT VOLUME 9.4 fl (7.5-11.1); PLATELET COUNT 171 10^3/uL (134-434); RBC 4.92 M/mm3 (4.00-5.60); RDW 13.9 % (11.9-15.9); WHITE BLOOD COUNT 5.3 K/mm3 (4.0-10.0)
[2022-12-11 15:41] LABS: CREATININE 0.7 mg/dL (0.55-1.3)
[2022-12-11 15:42] LABS: BILIRUBIN,TOTAL 0.5 mg/dL (0.2-1)
[2022-12-11 15:43] LABS: BLOOD UREA NITROGEN 8.1 mg/dL (7-18)
[2022-12-11 15:44] LABS: ALBUMIN 3.6 g/dl (3.4-5.0); TOT PROT 6.7 g/dl (6.4-8.2)
[2022-12-11 15:45] LABS: CALCIUM 8.9 mg/dL (8.5-10.1)
[2022-12-11] MEDS: MELATONIN 5 MG TABLETS PO SCH (21:57)
[2022-12-11] MEDS: THIAMINE HCL 100 MG TABLET (FP) PO SCH (21:57)
[2022-12-11] MEDS: GABAPENTIN 100 MG CAPSULE PO SCH (21:57)
[2022-12-11] MEDS: ROSUVASTATIN CA 20 MG TABLET PO SCH (21:57)
[2022-12-12] MEDS: chlordiazePOXIDE HCL 25 MG CAPSULE PO SCH ×4 (05:23→22:35)
[2022-12-12] MEDS: GABAPENTIN 100 MG CAPSULE PO SCH ×3 (05:58→22:35)
[2022-12-12] MEDS: metFORMIN HCL 500 MG TABLET (FP) PO SCH ×2 (06:00→17:23)
[2022-12-12] MEDS: INSULIN SLIDING SCALE (NOVOLOG) 1 VIAL SQ SCH ×4 (06:27→22:38)
[2022-12-12] MEDS: NIFEdipine E.R. 30 MG TABLET PO SCH (10:05)
[2022-12-12] MEDS: DOCUSATE SODIUM 100 MG CAPSULE (FP) PO SCH ×2 (10:05→22:35)
[2022-12-12] MEDS: PRENATAL VITAMINS W/ FOLIC ACID TABLET (FP) PO SCH (10:06)
[2022-12-12] MEDS: MELATONIN 5 MG TABLETS PO SCH (22:35)
[2022-12-12] MEDS: THIAMINE HCL 100 MG TABLET (FP) PO SCH (22:35)
[2022-12-12] MEDS: ROSUVASTATIN CA 20 MG TABLET PO SCH (22:35)
[2022-12-13] MEDS: chlordiazePOXIDE HCL 25 MG CAPSULE PO SCH ×4 (06:01→22:12)
[2022-12-13] MEDS: metFORMIN HCL 500 MG TABLET (FP) PO SCH ×2 (06:02→16:48)
[2022-12-13] MEDS: GABAPENTIN 100 MG CAPSULE PO SCH ×3 (06:02→22:10)
[2022-12-13] MEDS: INSULIN SLIDING SCALE (NOVOLOG) 1 VIAL SQ SCH ×4 (06:03→23:04)
[2022-12-13] MEDS: PRENATAL VITAMINS W/ FOLIC ACID TABLET (FP) PO SCH (10:13)
[2022-12-13] MEDS: NIFEdipine E.R. 30 MG TABLET PO SCH (10:13)
[2022-12-13] MEDS: DOCUSATE SODIUM 100 MG CAPSULE (FP) PO SCH ×2 (10:13→22:11)
[2022-12-13] MEDS: THIAMINE HCL 100 MG TABLET (FP) PO SCH (22:10)
[2022-12-13] MEDS: ROSUVASTATIN CA 20 MG TABLET PO SCH (22:11)
[2022-12-13] MEDS: MELATONIN 5 MG TABLETS PO SCH (22:12)
[2022-12-14] MEDS ORDERED: chlordiazePOXIDE HCL 10 MG CAPSULE PO PRN
[2022-12-14] MEDS ORDERED: chlordiazePOXIDE HCL 10 MG CAPSULE PO SCH (05:00)
[2022-12-14] MEDS: GABAPENTIN 100 MG CAPSULE PO SCH (05:27)
[2022-12-14 06:22] VITALS: BP 119/75; PULSE 86; RESP 16; TEMP 97.5
[2022-12-14] MEDS: metFORMIN HCL 500 MG TABLET (FP) PO SCH (06:52)
[2022-12-14] MEDS: INSULIN SLIDING SCALE (NOVOLOG) 1 VIAL SQ SCH (06:52)
[2022-12-15] MEDS ORDERED: chlordiazePOXIDE HCL 10 MG CAPSULE PO SCH (05:00)
[2022-12-16] MEDS ORDERED: chlordiazePOXIDE HCL 10 MG CAPSULE PO ONE (05:00)
== END 2022-12-14 07:35 | disposition left against medical advice (07) | DRG 894 ==
LOC: YASAS 10:01 → Y3N 13:44
PROVIDERS: ADMIT Allergy & Immunology; ATTEND Surgery
PROC: HZ2ZZZZ Detoxification Services for Substance Abuse Treatment (ICD-10-PCS; principal; 2022-12-10)
DX: F10.230 Alcohol dependence with withdrawal, uncomplicated (principal); F12.20 Cannabis dependence, uncomplicated; F17.210 Nicotine dependence, cigarettes, uncomplicated; F41.8 Other specified anxiety disorders; G40.909 Epilepsy, unspecified, not intractable, without status epilepticus; I10 Essential (primary) hypertension; E78.2 Mixed hyperlipidemia; E11.9 Type 2 diabetes mellitus without complications; Z79.84 Long term (current) use of oral hypoglycemic drugs; Z87.891 Personal history of nicotine dependence; Z86.19 Personal history of other infectious and parasitic diseases; Z91.011 Allergy to milk products
CPT/HCPCS: 36415; 80053; 82962; 85027; 86780; C9803-CS; U0003; U0005

== ENCOUNTER 2023-01-10 09:42 | Inpatient (IN) | payer OTHER ==
[2023-01-10 10:02] VITALS: BMI 30.7
[2023-01-10] MEDS ORDERED: IBUPROFEN 400 MG TABLET (FP) PO PRN (10:27)
[2023-01-10] MEDS ORDERED: ACETAMINOPHEN 325 MG TABLET (FP) PO PRN ×2 (10:27)
[2023-01-10] MEDS ORDERED: POLYETHYLENE GLYCOL (HEALTHYLAX) 3350 17 GM PACKET PO PRN (10:27)
[2023-01-10] MEDS ORDERED: BENZOCAINE/MENTHOL (CHLORASEPTIC ) LOZENGE MM PRN (10:27)
[2023-01-10] MEDS ORDERED: MAGNESIUM HYDROX 2400MG/30ML ORAL SUSPENSION 30 ML CUP PO PRN (10:27)
[2023-01-10] MEDS ORDERED: LOPERAMIDE HCL 2 MG CAPSULE PO PRN (10:27)
[2023-01-10] MEDS ORDERED: MAG HYDROX/AL HYDROX/SIMETH 30 ML UNIT-DOSE CUP PO PRN (10:27)
[2023-01-10] MEDS ORDERED: BISMUTH SUBSALICYLATE 262 MG/15 ML BTL PO PRN (10:27)
[2023-01-10] MEDS ORDERED: DICYCLOMINE HCL 10 MG CAPSULE PO PRN (10:27)
[2023-01-10] MEDS ORDERED: METHOCARBAMOL 500 MG TABLET PO PRN (10:27)
[2023-01-10] MEDS ORDERED: ONDANSETRON *ODT* 4 MG TABLET SL PRN (10:27)
[2023-01-10] MEDS: GABAPENTIN 100 MG CAPSULE PO SCH ×2 (14:12→22:24)
[2023-01-10] MEDS: MELATONIN 5 MG TABLETS PO SCH (22:24)
[2023-01-10] MEDS: THIAMINE HCL 100 MG TABLET (FP) PO SCH (22:24)
[2023-01-11] MEDS ORDERED: GABAPENTIN 100 MG CAPSULE PO SCH (06:00)
[2023-01-11] MEDS: metFORMIN HCL 500 MG TABLET (FP) PO SCH ×2 (06:18→16:54)
[2023-01-11] MEDS: GABAPENTIN 100 MG CAPSULE PO SCH ×3 (06:21→22:22)
[2023-01-11] MEDS ORDERED: chlordiazePOXIDE HCL 25 MG CAPSULE PO PRN (09:49)
[2023-01-11] MEDS: NIFEdipine E.R. 30 MG TABLET PO SCH (10:28)
[2023-01-11] MEDS: PRENATAL VITAMINS W/ FOLIC ACID TABLET (FP) PO SCH (10:28)
[2023-01-11] MEDS: hydrOXYzine PAMOATE 25 MG CAPSULE (FP) PO PRN (10:28)
[2023-01-11] MEDS: chlordiazePOXIDE HCL 25 MG CAPSULE PO SCH ×3 (10:29→22:22)
[2023-01-11 10:57] LABS: HEMATOCRIT 43.6 % (35.4-49); HEMOGLOBIN 15.1 GM/dL (11.7-16.9); MCH 30.4 pg (25.7-33.7); MCHC 34.7 g/dl (32.0-35.9); MEAN CELL VOLUME 87.6 fl (80-96); MEAN PLT VOLUME 10.4 fl (7.5-11.1); PLATELET COUNT 209 10^3/uL (134-434); RBC 4.98 M/mm3 (4.00-5.60); WHITE BLOOD COUNT 5.3 K/mm3 (4.0-10.0)
[2023-01-11 11:06] LABS: CALCIUM 8.7 mg/dL (8.5-10.1)
[2023-01-11 11:07] LABS: ALBUMIN 3.8 g/dl (3.4-5.0); BLOOD UREA NITROGEN 7.1 mg/dL (7-18)
[2023-01-11 11:08] LABS: CREATININE 0.7 mg/dL (0.55-1.3)
[2023-01-11 11:10] LABS: BILIRUBIN,TOTAL 0.5 mg/dL (0.2-1)
[2023-01-11] MEDS: INSULIN SLIDING SCALE (NOVOLOG) 1 VIAL SQ SCH ×2 (16:52→22:20)
[2023-01-11] MEDS: MELATONIN 5 MG TABLETS PO SCH (22:22)
[2023-01-11] MEDS: THIAMINE HCL 100 MG TABLET (FP) PO SCH (22:22)
[2023-01-11] MEDS: ROSUVASTATIN CA 20 MG TABLET PO SCH (22:57)
[2023-01-12] MEDS: GABAPENTIN 100 MG CAPSULE PO SCH ×3 (05:36→22:40)
[2023-01-12] MEDS: chlordiazePOXIDE HCL 25 MG CAPSULE PO SCH ×4 (05:37→22:36)
[2023-01-12] MEDS: INSULIN SLIDING SCALE (NOVOLOG) 1 VIAL SQ SCH ×4 (06:30→21:41)
[2023-01-12] MEDS: metFORMIN HCL 500 MG TABLET (FP) PO SCH ×2 (06:31→16:40)
[2023-01-12] MEDS ORDERED: INSULIN SLIDING SCALE (NOVOLOG) 1 VIAL SQ ONE (07:01)
[2023-01-12] MEDS: NIFEdipine E.R. 30 MG TABLET PO SCH (10:15)
[2023-01-12] MEDS: PRENATAL VITAMINS W/ FOLIC ACID TABLET (FP) PO SCH (10:16)
[2023-01-12] MEDS: IBUPROFEN 600 MG TABLET (FP) PO PRN (10:18)
[2023-01-12] MEDS: THIAMINE HCL 100 MG TABLET (FP) PO SCH (22:36)
[2023-01-12] MEDS: MELATONIN 5 MG TABLETS PO SCH (22:36)
[2023-01-12] MEDS: ROSUVASTATIN CA 20 MG TABLET PO SCH (22:36)
[2023-01-13] MEDS: chlordiazePOXIDE HCL 25 MG CAPSULE PO SCH ×4 (05:38→22:03)
[2023-01-13] MEDS: GABAPENTIN 100 MG CAPSULE PO SCH ×3 (05:38→21:57)
[2023-01-13] MEDS: metFORMIN HCL 500 MG TABLET (FP) PO SCH ×2 (06:18→17:30)
[2023-01-13] MEDS: INSULIN SLIDING SCALE (NOVOLOG) 1 VIAL SQ SCH ×4 (06:19→21:57)
[2023-01-13] MEDS ORDERED: INSULIN SLIDING SCALE (NOVOLOG) 1 VIAL SQ ONE (06:32)
[2023-01-13] MEDS: NIFEdipine E.R. 30 MG TABLET PO SCH (10:27)
[2023-01-13] MEDS: PRENATAL VITAMINS W/ FOLIC ACID TABLET (FP) PO SCH (10:27)
[2023-01-13] MEDS: IBUPROFEN 600 MG TABLET (FP) PO PRN (12:06)
[2023-01-13] MEDS: hydrOXYzine PAMOATE 25 MG CAPSULE (FP) PO PRN (12:07)
[2023-01-13 21:16] VITALS: RESP 16
[2023-01-13] MEDS: MELATONIN 5 MG TABLETS PO SCH (21:56)
[2023-01-13] MEDS: THIAMINE HCL 100 MG TABLET (FP) PO SCH (21:56)
[2023-01-13] MEDS: ROSUVASTATIN CA 20 MG TABLET PO SCH (21:57)
[2023-01-14] MEDS ORDERED: chlordiazePOXIDE HCL 10 MG CAPSULE PO PRN
[2023-01-14] MEDS: chlordiazePOXIDE HCL 10 MG CAPSULE PO SCH ×2 (05:42→10:26)
[2023-01-14] MEDS: GABAPENTIN 100 MG CAPSULE PO SCH (05:43)
[2023-01-14] MEDS: metFORMIN HCL 500 MG TABLET (FP) PO SCH (06:21)
[2023-01-14] MEDS: INSULIN SLIDING SCALE (NOVOLOG) 1 VIAL SQ SCH ×2 (07:35→12:07)
[2023-01-14 09:57] VITALS: BP 130/84; PULSE 88; TEMP 98.8
[2023-01-14] MEDS: PRENATAL VITAMINS W/ FOLIC ACID TABLET (FP) PO SCH (10:25)
[2023-01-14] MEDS: NIFEdipine E.R. 30 MG TABLET PO SCH (10:25)
[2023-01-14] MEDS: IBUPROFEN 600 MG TABLET (FP) PO PRN (10:28)
[2023-01-15] MEDS ORDERED: chlordiazePOXIDE HCL 10 MG CAPSULE PO SCH (05:00)
[2023-01-16] MEDS ORDERED: chlordiazePOXIDE HCL 10 MG CAPSULE PO ONE (05:00)
== END 2023-01-14 12:35 | disposition left against medical advice (07) | DRG 894 ==
LOC: YASAS 09:42 → Y3N 10:47 → UNDOADMIN 10:47
PROVIDERS: ADMIT Allergy & Immunology; ATTEND Surgery
PROC: HZ2ZZZZ Detoxification Services for Substance Abuse Treatment (ICD-10-PCS; principal; 2023-01-10)
DX: F10.230 Alcohol dependence with withdrawal, uncomplicated (principal); F17.210 Nicotine dependence, cigarettes, uncomplicated; F41.9 Anxiety disorder, unspecified; E78.1 Pure hyperglyceridemia; I10 Essential (primary) hypertension; E11.9 Type 2 diabetes mellitus without complications; Z79.84 Long term (current) use of oral hypoglycemic drugs; E66.9 Obesity, unspecified; Z68.30 Body mass index [BMI] 30.0-30.9, adult; Z86.19 Personal history of other infectious and parasitic diseases; Z91.011 Allergy to milk products
CPT/HCPCS: 36415; 80053; 82962; 85027; 86780; C9803-CS; U0003; U0005

== ENCOUNTER 2023-03-31 08:24 | Inpatient (IN) | payer OTHER ==
[2023-03-31 08:51] VITALS: BMI 31.3
[2023-03-31] MEDS ORDERED: DOCUSATE SODIUM 100 MG CAPSULE (FP) PO PRN (08:54)
[2023-03-31] MEDS ORDERED: ONDANSETRON *ODT* 4 MG TABLET SL PRN (09:38)
[2023-03-31] MEDS ORDERED: POLYETHYLENE GLYCOL (HEALTHYLAX) 3350 17 GM PACKET PO PRN (09:38)
[2023-03-31] MEDS ORDERED: IBUPROFEN 400 MG TABLET (FP) PO PRN (09:38)
[2023-03-31] MEDS ORDERED: LOPERAMIDE HCL 2 MG CAPSULE PO PRN (09:38)
[2023-03-31] MEDS ORDERED: IBUPROFEN 600 MG TABLET (FP) PO PRN (09:38)
[2023-03-31] MEDS ORDERED: BISMUTH SUBSALICYLATE 524 MG/30 ML PO PRN (09:38)
[2023-03-31] MEDS ORDERED: hydrOXYzine PAMOATE 25 MG CAPSULE (FP) PO PRN (09:38)
[2023-03-31] MEDS ORDERED: BENZOCAINE/MENTHOL (CHLORASEPTIC ) LOZENGE MM PRN (09:38)
[2023-03-31] MEDS ORDERED: DICYCLOMINE HCL 10 MG CAPSULE PO PRN (09:38)
[2023-03-31] MEDS ORDERED: NICOTINE POLACRILEX 2 MG GUM BUC PRN (09:38)
[2023-03-31] MEDS ORDERED: guaiFENesin 600 MG TABLET.ER (FP) PO PRN (09:38)
[2023-03-31] MEDS ORDERED: MAGNESIUM HYDROX 2400MG/30ML ORAL SUSPENSION 30 ML CUP PO PRN (09:38)
[2023-03-31] MEDS ORDERED: NALOXONE HCL (KLOXXADO) 8 MG SPRAY NS PRN (09:38)
[2023-03-31] MEDS ORDERED: BENZONATATE 200 MG CAPSULE PO PRN (09:38)
[2023-03-31] MEDS ORDERED: ACETAMINOPHEN 325 MG TABLET (FP) PO PRN ×2 (09:38)
[2023-03-31] MEDS ORDERED: P-EPHED 60MG/TRIPROLIDI 2.5MG TABLET PO PRN (09:38)
[2023-03-31] MEDS ORDERED: MAG HYDROX/AL HYDROX/SIMETH 30 ML UNIT-DOSE CUP PO PRN (09:38)
[2023-03-31] MEDS ORDERED: NALOXONE HCL 0.4 MG/ML VIAL IM PRN (09:38)
[2023-03-31] MEDS: INSULIN SLIDING SCALE (NOVOLOG) 1 VIAL SQ SCH ×2 (12:40→17:01)
[2023-03-31] MEDS: PRENATAL VITAMINS W/ FOLIC ACID TABLET (FP) PO SCH (12:41)
[2023-03-31] MEDS: NIFEdipine E.R. 30 MG TABLET PO SCH (12:50)
[2023-03-31] MEDS: diazePAM 5 MG TABLET PO PRN ×2 (12:52→22:20)
[2023-03-31] MEDS: THIAMINE HCL 100 MG TABLET (FP) PO SCH (22:20)
[2023-03-31] MEDS: MELATONIN 5 MG TABLETS PO SCH (22:20)
[2023-03-31] MEDS: ROSUVASTATIN CA 20 MG TABLET PO SCH (22:20)
[2023-04-01] MEDS: INSULIN SLIDING SCALE (NOVOLOG) 1 VIAL SQ SCH ×2 (06:37→16:44)
[2023-04-01] MEDS: PRENATAL VITAMINS W/ FOLIC ACID TABLET (FP) PO SCH (10:06)
[2023-04-01] MEDS: NIFEdipine E.R. 30 MG TABLET PO SCH (10:06)
[2023-04-01] MEDS: diazePAM 5 MG TABLET PO PRN ×3 (10:08→22:06)
[2023-04-01 11:36] LABS: CALCIUM 8.8 mg/dL (8.5-10.1)
[2023-04-01 11:37] LABS: ALBUMIN 3.8 g/dl (3.4-5.0); BLOOD UREA NITROGEN 7.9 mg/dL (7-18)
[2023-04-01 11:40] LABS: CREATININE 0.7 mg/dL (0.55-1.3)
[2023-04-01 11:41] LABS: BILIRUBIN,TOTAL 0.8 mg/dL (0.2-1); TOT PROT 7.4 g/dl (6.4-8.2)
[2023-04-01] MEDS ORDERED: INSULIN (NOVOLOG) ASPART 100 UNITS/ML 10ML VIAL SQ ONE (21:39)
[2023-04-01] MEDS: ROSUVASTATIN CA 20 MG TABLET PO SCH (22:06)
[2023-04-01] MEDS: THIAMINE HCL 100 MG TABLET (FP) PO SCH (22:06)
[2023-04-01] MEDS: MELATONIN 5 MG TABLETS PO SCH (22:07)
[2023-04-02] MEDS ORDERED: INSULIN SLIDING SCALE (NOVOLOG) 1 VIAL SQ ONE (05:09)
[2023-04-02] MEDS: diazePAM 5 MG TABLET PO PRN (05:10)
[2023-04-02] MEDS: INSULIN SLIDING SCALE (NOVOLOG) 1 VIAL SQ SCH ×2 (06:13→11:23)
[2023-04-02 08:50] VITALS: BP 141/81; PULSE 82; RESP 16; TEMP 97.8
[2023-04-02] MEDS: PRENATAL VITAMINS W/ FOLIC ACID TABLET (FP) PO SCH (09:33)
[2023-04-02] MEDS: NIFEdipine E.R. 30 MG TABLET PO SCH (09:34)
== END 2023-04-02 11:28 | disposition home or self-care (01) | DRG 897 ==
LOC: YASAS 08:24 → Y3N 09:42
PROVIDERS: ADMIT Allergy & Immunology; ATTEND Surgery
PROC: HZ2ZZZZ Detoxification Services for Substance Abuse Treatment (ICD-10-PCS; principal; 2023-03-31)
DX: F10.230 Alcohol dependence with withdrawal, uncomplicated (principal); F13.20 Sedative, hypnotic or anxiolytic dependence, uncomplicated; F12.20 Cannabis dependence, uncomplicated; F17.210 Nicotine dependence, cigarettes, uncomplicated; F20.9 Schizophrenia, unspecified; E78.5 Hyperlipidemia, unspecified; I10 Essential (primary) hypertension; E11.9 Type 2 diabetes mellitus without complications; Z79.84 Long term (current) use of oral hypoglycemic drugs; Z86.19 Personal history of other infectious and parasitic diseases
CPT/HCPCS: 36415; 80053; 82962; 86780; C9803-CS; U0003; U0005

== ENCOUNTER 2023-05-03 12:20 | Inpatient (IN) | payer OTHER ==
[2023-05-03 12:47] VITALS: BMI 30.8
[2023-05-03] MEDS ORDERED: NALOXONE HCL 0.4 MG/ML VIAL IM PRN (13:30)
[2023-05-03] MEDS ORDERED: LOPERAMIDE HCL 2 MG CAPSULE PO PRN (13:30)
[2023-05-03] MEDS ORDERED: MAGNESIUM HYDROX 2400MG/30ML ORAL SUSPENSION 30 ML CUP PO PRN (13:30)
[2023-05-03] MEDS ORDERED: NALOXONE HCL (KLOXXADO) 8 MG SPRAY NS PRN (13:30)
[2023-05-03] MEDS ORDERED: COLLOIDAL OATMEAL 1 BAR EACH TP PRN (13:30)
[2023-05-03] MEDS ORDERED: guaiFENesin 600 MG TABLET.ER (FP) PO PRN (13:30)
[2023-05-03] MEDS ORDERED: BENZONATATE 200 MG CAPSULE PO PRN (13:30)
[2023-05-03] MEDS ORDERED: AMMONIUM LACTATE 12% LOTION 225 GM BOTTLE TP PRN (13:30)
[2023-05-03] MEDS ORDERED: POLYETHYLENE GLYCOL (HEALTHYLAX) 3350 17 GM PACKET PO PRN (13:30)
[2023-05-03] MEDS ORDERED: IBUPROFEN 400 MG TABLET (FP) PO PRN (13:30)
[2023-05-03] MEDS ORDERED: ACETAMINOPHEN 325 MG TABLET (FP) PO PRN (13:30)
[2023-05-03] MEDS ORDERED: hydrOXYzine PAMOATE 25 MG CAPSULE (FP) PO PRN (13:30)
[2023-05-03] MEDS ORDERED: BENZOCAINE/MENTHOL (CHLORASEPTIC ) LOZENGE MM PRN (13:30)
[2023-05-03] MEDS ORDERED: IBUPROFEN 600 MG TABLET (FP) PO PRN (13:30)
[2023-05-03] MEDS ORDERED: NICOTINE 10 MG CARTRIDGE (INHALER) IH PRN (13:30)
[2023-05-03] MEDS ORDERED: NICOTINE POLACRILEX 2 MG GUM BUC PRN (13:30)
[2023-05-03] MEDS ORDERED: MAG HYDROX/AL HYDROX/SIMETH 30 ML UNIT-DOSE CUP PO PRN (13:30)
[2023-05-03] MEDS ORDERED: NIFEdipine E.R. 30 MG TABLET PO SCH (14:15)
[2023-05-03] MEDS: metFORMIN HCL 500 MG TABLET (FP) PO SCH (17:23)
[2023-05-03] MEDS: NIFEdipine E.R. 30 MG TABLET PO SCH (17:23)
[2023-05-03 18:20] LABS: CHLORIDE 104 mmol/L (98-107); HEMATOCRIT 37.2 % (35.4-49); HEMOGLOBIN 12.8 GM/dL (11.7-16.9); MCH 29.7 pg (25.7-33.7); MCHC 34.4 g/dl (32.0-35.9); MEAN CELL VOLUME 86.4 fl (80-96); PLATELET COUNT 167 10^3/uL (134-434); POTASSIUM 4.1 mmol/L (3.5-5.1); RBC 4.31 M/mm3 (4.00-5.60); RDW 13.8 % (11.9-15.9); SODIUM 138 mmol/L (136-145); WHITE BLOOD COUNT 5.3 K/mm3 (4.0-10.0)
[2023-05-03 18:25] LABS: CALCIUM 8.6 mg/dL (8.5-10.1)
[2023-05-03 18:27] LABS: ALBUMIN 3.6 g/dl (3.4-5.0); ANION GAP 10 MMOL/L (8-16); BLOOD UREA NITROGEN 9.2 mg/dL (7-18); CO2 25 mmol/L (21-32)
[2023-05-03 18:29] LABS: CREATININE 0.8 mg/dL (0.55-1.3); SGOT/AST 13 U/L (15-37); SGPT/ALT 26 U/L (13-61)
[2023-05-03 18:31] LABS: ALK PHOS 82 U/L (45-117); BILIRUBIN,TOTAL 0.2 mg/dL (0.2-1); TOT PROT 6.5 g/dl (6.4-8.2)
[2023-05-03 18:32] LABS: PH,URINE 5.5 (5.0-8.0); URINE APPEARANCE CLEAR; URINE BILIRUBIN NEGATIVE (NEGATIVE); URINE COLOR YELLOW; URINE GLUCOSE (UA) 3+ (NEGATIVE); URINE KETONE TRACE (NEGATIVE); URINE LEUK ESTERASE NEGATIVE (NEGATIVE); URINE NITRITE NEGATIVE (NEGATIVE); URINE PROTEIN NEGATIVE (NEGATIVE); URINE UROBILINOGEN 0.2 mg/dL (0.2-1.0)
[2023-05-03 18:44] LABS: GLUCOSE,RANDOM 566 mg/dL (74-106)
[2023-05-03 18:47] LABS: SYPHILIS W/ RPR CONF NON-REACTIVE (NONREACTIVE)
[2023-05-03] MEDS ORDERED: INSULIN (NOVOLOG) ASPART 100 UNITS/ML 10ML VIAL SQ ONE (19:09)
[2023-05-03] MEDS ORDERED: INSULIN SLIDING SCALE (NOVOLOG) 1 VIAL SQ ONE (19:18)
[2023-05-03] MEDS ORDERED: THIAMINE HCL 100 MG TABLET (FP) PO SCH (22:00)
[2023-05-03] MEDS ORDERED: ROSUVASTATIN CA 20 MG TABLET PO SCH (22:00)
[2023-05-03] MEDS ORDERED: MELATONIN 5 MG TABLETS PO SCH (22:00)
[2023-05-03] MEDS ORDERED: chlordiazePOXIDE HCL 25 MG CAPSULE PO PRN (22:40)
[2023-05-03] MEDS: chlordiazePOXIDE HCL 25 MG CAPSULE PO SCH (23:00)
[2023-05-04] MEDS: chlordiazePOXIDE HCL 25 MG CAPSULE PO SCH ×2 (05:17→10:34)
[2023-05-04] MEDS ORDERED: INSULIN SLIDING SCALE (NOVOLOG) 1 VIAL SQ ONE ×2 (05:48→06:13)
[2023-05-04] MEDS: INSULIN SLIDING SCALE (NOVOLOG) 1 VIAL SQ SCH ×3 (06:02→10:34)
[2023-05-04] MEDS: metFORMIN HCL 500 MG TABLET (FP) PO SCH (06:08)
[2023-05-04 08:51] VITALS: BP 143/82; PULSE 92; RESP 16; TEMP 97.5
[2023-05-04] MEDS ORDERED: PRENATAL VITAMINS W/ FOLIC ACID TABLET (FP) PO SCH (10:00)
[2023-05-04] MEDS: NIFEdipine E.R. 30 MG TABLET PO SCH (10:34)
[2023-05-04] MEDS ORDERED: chlordiazePOXIDE HCL 10 MG CAPSULE PO SCH (23:00)
[2023-05-06] MEDS ORDERED: chlordiazePOXIDE HCL 10 MG CAPSULE PO PRN
[2023-05-06] MEDS ORDERED: chlordiazePOXIDE HCL 10 MG CAPSULE PO SCH (05:00)
[2023-05-07] MEDS ORDERED: chlordiazePOXIDE HCL 10 MG CAPSULE PO ONE (05:00)
== END 2023-05-04 09:03 | disposition left against medical advice (07) | DRG 894 ==
LOC: YASAS 12:20 → Y3N 13:16
PROVIDERS: ADMIT Allergy & Immunology; ATTEND Surgery
PROC: HZ2ZZZZ Detoxification Services for Substance Abuse Treatment (ICD-10-PCS; principal; 2023-05-03)
DX: F10.230 Alcohol dependence with withdrawal, uncomplicated (principal); F13.20 Sedative, hypnotic or anxiolytic dependence, uncomplicated; F17.210 Nicotine dependence, cigarettes, uncomplicated; F20.9 Schizophrenia, unspecified; F41.8 Other specified anxiety disorders; E78.5 Hyperlipidemia, unspecified; I10 Essential (primary) hypertension; E11.9 Type 2 diabetes mellitus without complications; Z79.84 Long term (current) use of oral hypoglycemic drugs; Z91.011 Allergy to milk products
CPT/HCPCS: 36415; 80053; 81003; 82962; 85027; 86780; 86803; 87635

== ENCOUNTER 2023-06-11 08:37 | Inpatient (IN) | payer OTHER ==
[2023-06-11 09:12] VITALS: BMI 31.0
[2023-06-11] MEDS ORDERED: MAG HYDROX/AL HYDROX/SIMETH 30 ML UNIT-DOSE CUP PO PRN (09:48)
[2023-06-11] MEDS ORDERED: LOPERAMIDE HCL 2 MG CAPSULE PO PRN (09:48)
[2023-06-11] MEDS ORDERED: DICYCLOMINE HCL 10 MG CAPSULE PO PRN (09:48)
[2023-06-11] MEDS ORDERED: NALOXONE HCL 0.4 MG/ML VIAL IM PRN (09:48)
[2023-06-11] MEDS ORDERED: IBUPROFEN 400 MG TABLET (FP) PO PRN (09:48)
[2023-06-11] MEDS ORDERED: BENZOCAINE/MENTHOL (CHLORASEPTIC ) LOZENGE MM PRN (09:48)
[2023-06-11] MEDS ORDERED: hydrOXYzine PAMOATE 25 MG CAPSULE (FP) PO PRN (09:48)
[2023-06-11] MEDS ORDERED: NALOXONE HCL (KLOXXADO) 8 MG SPRAY NS PRN (09:48)
[2023-06-11] MEDS ORDERED: IBUPROFEN 600 MG TABLET (FP) PO PRN (09:48)
[2023-06-11] MEDS ORDERED: ACETAMINOPHEN 325 MG TABLET (FP) PO PRN (09:48)
[2023-06-11] MEDS ORDERED: BISMUTH SUBSALICYLATE 524 MG/30 ML PO PRN (09:48)
[2023-06-11] MEDS ORDERED: BENZONATATE 200 MG CAPSULE PO PRN (09:48)
[2023-06-11] MEDS ORDERED: MAGNESIUM HYDROX 2400MG/30ML ORAL SUSPENSION 30 ML CUP PO PRN (09:48)
[2023-06-11] MEDS ORDERED: guaiFENesin 600 MG TABLET.ER (FP) PO PRN (09:48)
[2023-06-11] MEDS ORDERED: POLYETHYLENE GLYCOL (HEALTHYLAX) 3350 17 GM PACKET PO PRN (09:48)
[2023-06-11] MEDS ORDERED: ONDANSETRON *ODT* 4 MG TABLET SL PRN (09:48)
[2023-06-11] MEDS ORDERED: METHOCARBAMOL 500 MG TABLET PO PRN (09:48)
[2023-06-11] MEDS: PRENATAL VITAMINS W/ FOLIC ACID TABLET (FP) PO SCH (10:48)
[2023-06-11] MEDS ORDERED: INSULIN (NOVOLOG) ASPART 100 UNITS/ML 10ML VIAL SQ ONE (11:24)
[2023-06-11] MEDS ORDERED: INSULIN (NOVOLOG) ASPART 100 UNITS/ML 10ML VIAL ONE ×2 (11:28→17:32)
[2023-06-11] MEDS ORDERED: DOCUSATE SODIUM 100 MG CAPSULE (FP) PO PRN (12:35)
[2023-06-11] MEDS: GABAPENTIN 100 MG CAPSULE PO SCH ×2 (13:14→22:29)
[2023-06-11] MEDS ORDERED: INSULIN SLIDING SCALE (NOVOLOG) 1 VIAL SQ SCH (16:30)
[2023-06-11] MEDS: metFORMIN HCL 500 MG TABLET (FP) PO SCH (17:39)
[2023-06-11] MEDS: INSULIN SLIDING SCALE (NOVOLOG) 1 VIAL SQ SCH (17:40)
[2023-06-11] MEDS: THIAMINE HCL 100 MG TABLET (FP) PO SCH (22:29)
[2023-06-11] MEDS: ROSUVASTATIN CA 20 MG TABLET PO SCH (22:29)
[2023-06-11] MEDS: MELATONIN 5 MG TABLETS PO SCH (22:29)
[2023-06-12] MEDS: GABAPENTIN 100 MG CAPSULE PO SCH ×3 (05:24→22:12)
[2023-06-12] MEDS: metFORMIN HCL 500 MG TABLET (FP) PO SCH ×2 (06:00→17:22)
[2023-06-12] MEDS: INSULIN SLIDING SCALE (NOVOLOG) 1 VIAL SQ SCH ×3 (06:01→21:33)
[2023-06-12] MEDS ORDERED: NIFEdipine E.R. 30 MG TABLET PO SCH (10:00)
[2023-06-12] MEDS: PRENATAL VITAMINS W/ FOLIC ACID TABLET (FP) PO SCH (10:08)
[2023-06-12 11:26] LABS: CHLORIDE 102 mmol/L (98-107); SODIUM 138 mmol/L (136-145)
[2023-06-12 11:29] LABS: ALBUMIN 4.3 g/dl (3.4-5.0); ANION GAP 6 MMOL/L (8-16); CALCIUM 9.7 mg/dL (8.5-10.1); CO2 30 mmol/L (21-32)
[2023-06-12 11:31] LABS: CREATININE 0.9 mg/dL (0.55-1.3); SGPT/ALT 27 U/L (13-61)
[2023-06-12 11:33] LABS: BILIRUBIN,TOTAL 0.3 mg/dL (0.2-1); HEMATOCRIT 43.3 % (35.4-49); HEMOGLOBIN 14.7 GM/dL (11.7-16.9); MCH 30.1 pg (25.7-33.7); MEAN CELL VOLUME 88.6 fl (80-96); MEAN PLT VOLUME 10.8 fl (7.5-11.1); PLATELET COUNT 187 10^3/uL (134-434); RBC 4.88 M/mm3 (4.00-5.60); SGOT/AST 16 U/L (15-37); TOT PROT 7.5 g/dl (6.4-8.2); WHITE BLOOD COUNT 4.4 K/mm3 (4.0-10.0)
[2023-06-12 11:34] LABS: ALK PHOS 79 U/L (45-117)
[2023-06-12 11:40] LABS: GLUCOSE,RANDOM 433 mg/dL (74-106)
[2023-06-12] MEDS ORDERED: INSULIN (NOVOLOG) ASPART 100 UNITS/ML 10ML VIAL SQ ONE (12:32)
[2023-06-12] MEDS: chlordiazePOXIDE HCL 25 MG CAPSULE PO PRN (13:43)
[2023-06-12] MEDS ORDERED: INSULIN (NOVOLOG) ASPART 100 UNITS/ML 10ML VIAL ONE (17:12)
[2023-06-12] MEDS: chlordiazePOXIDE HCL 25 MG CAPSULE PO SCH ×2 (17:26→22:12)
[2023-06-12] MEDS: THIAMINE HCL 100 MG TABLET (FP) PO SCH (22:12)
[2023-06-12] MEDS: MELATONIN 5 MG TABLETS PO SCH (22:13)
[2023-06-12] MEDS: ROSUVASTATIN CA 20 MG TABLET PO SCH (23:10)
[2023-06-13] MEDS ORDERED: chlordiazePOXIDE HCL 25 MG CAPSULE PO SCH (05:00)
[2023-06-13] MEDS: chlordiazePOXIDE HCL 25 MG CAPSULE PO PRN (05:36)
[2023-06-13] MEDS: GABAPENTIN 100 MG CAPSULE PO SCH (05:36)
[2023-06-13] MEDS: INSULIN SLIDING SCALE (NOVOLOG) 1 VIAL SQ SCH (06:43)
[2023-06-13] MEDS: metFORMIN HCL 500 MG TABLET (FP) PO SCH (06:43)
[2023-06-13 06:45] VITALS: BP 136/87; PULSE 83; RESP 16; TEMP 97.8
[2023-06-14] MEDS ORDERED: chlordiazePOXIDE HCL 10 MG CAPSULE PO SCH (05:00)
[2023-06-15] MEDS ORDERED: chlordiazePOXIDE HCL 10 MG CAPSULE PO PRN
[2023-06-15] MEDS ORDERED: chlordiazePOXIDE HCL 10 MG CAPSULE PO SCH (05:00)
[2023-06-16] MEDS ORDERED: chlordiazePOXIDE HCL 10 MG CAPSULE PO ONE (05:00)
== END 2023-06-13 08:38 | disposition left against medical advice (07) | DRG 894 ==
LOC: YASAS 08:37 → Y3N 10:31 → Y6N 11:42
PROVIDERS: ADMIT Allergy & Immunology; ATTEND Allergy & Immunology
PROC: HZ2ZZZZ Detoxification Services for Substance Abuse Treatment (ICD-10-PCS; principal; 2023-06-11)
DX: F10.20 Alcohol dependence, uncomplicated (principal); F12.20 Cannabis dependence, uncomplicated; F10.282 Alcohol dependence with alcohol-induced sleep disorder; F10.280 Alcohol dependence with alcohol-induced anxiety disorder; F41.9 Anxiety disorder, unspecified; I10 Essential (primary) hypertension; E78.5 Hyperlipidemia, unspecified; E11.9 Type 2 diabetes mellitus without complications; Z79.84 Long term (current) use of oral hypoglycemic drugs; E66.9 Obesity, unspecified; Z68.31 Body mass index [BMI] 31.0-31.9, adult; Z87.891 Personal history of nicotine dependence; Z86.19 Personal history of other infectious and parasitic diseases
CPT/HCPCS: 36415; 80053; 82962; 85027; 86780; 87635; 87811

== ENCOUNTER 2023-08-20 18:59 | Inpatient (IN) | payer OTHER ==
[2023-08-20 19:23] VITALS: BMI 29.7
[2023-08-20] MEDS ORDERED: LOPERAMIDE HCL 2 MG CAPSULE PO PRN (19:54)
[2023-08-20] MEDS ORDERED: ONDANSETRON *ODT* 4 MG TABLET SL PRN (19:54)
[2023-08-20] MEDS ORDERED: NALOXONE HCL 0.4 MG/ML VIAL IM PRN (19:54)
[2023-08-20] MEDS ORDERED: DICYCLOMINE HCL 10 MG CAPSULE PO PRN (19:54)
[2023-08-20] MEDS ORDERED: BENZOCAINE/MENTHOL (CHLORASEPTIC ) LOZENGE MM PRN (19:54)
[2023-08-20] MEDS ORDERED: ACETAMINOPHEN 325 MG TABLET (FP) PO PRN (19:54)
[2023-08-20] MEDS ORDERED: BENZONATATE 200 MG CAPSULE PO PRN (19:54)
[2023-08-20] MEDS ORDERED: NALOXONE HCL (KLOXXADO) 8 MG SPRAY NS PRN (19:54)
[2023-08-20] MEDS ORDERED: METHOCARBAMOL 500 MG TABLET PO PRN (19:54)
[2023-08-20] MEDS ORDERED: chlordiazePOXIDE HCL 25 MG CAPSULE PO PRN (19:54)
[2023-08-20] MEDS ORDERED: guaiFENesin 600 MG TABLET.ER (FP) PO PRN (19:54)
[2023-08-20] MEDS ORDERED: MAG HYDROX/AL HYDROX/SIMETH 30 ML UNIT-DOSE CUP PO PRN (19:54)
[2023-08-20] MEDS ORDERED: IBUPROFEN 600 MG TABLET (FP) PO PRN (19:54)
[2023-08-20] MEDS ORDERED: IBUPROFEN 400 MG TABLET (FP) PO PRN (19:54)
[2023-08-20] MEDS ORDERED: MAGNESIUM HYDROX 2400MG/30ML ORAL SUSPENSION 30 ML CUP PO PRN (19:54)
[2023-08-20] MEDS ORDERED: POLYETHYLENE GLYCOL (HEALTHYLAX) 3350 17 GM PACKET PO PRN (19:54)
[2023-08-20] MEDS ORDERED: hydrOXYzine PAMOATE 25 MG CAPSULE (FP) PO PRN (19:54)
[2023-08-20] MEDS ORDERED: BISMUTH SUBSALICYLATE 524 MG/30 ML PO PRN (19:54)
[2023-08-20] MEDS: THIAMINE HCL 100 MG TABLET (FP) PO SCH (22:23)
[2023-08-20] MEDS: chlordiazePOXIDE HCL 25 MG CAPSULE PO SCH (22:23)
[2023-08-20] MEDS: MELATONIN 5 MG TABLETS PO SCH (22:23)
[2023-08-21] MEDS: chlordiazePOXIDE HCL 25 MG CAPSULE PO SCH ×4 (05:25→22:20)
[2023-08-21] MEDS ORDERED: DOCUSATE SODIUM 100 MG CAPSULE (FP) PO PRN (05:26)
[2023-08-21] MEDS: metFORMIN HCL 500 MG TABLET (FP) PO SCH ×2 (06:58→17:47)
[2023-08-21] MEDS: INSULIN SLIDING SCALE (NOVOLOG) 1 VIAL SQ SCH ×3 (06:59→17:47)
[2023-08-21] MEDS: PRENATAL VITAMINS W/ FOLIC ACID TABLET (FP) PO SCH (10:02)
[2023-08-21] MEDS: NIFEdipine E.R. 30 MG TABLET PO SCH (10:03)
[2023-08-21 11:20] LABS: HEMATOCRIT 41.6 % (35.4-49); HEMOGLOBIN 14.4 GM/dL (11.7-16.9); MCH 30.2 pg (25.7-33.7); MCHC 34.6 g/dl (32.0-35.9); MEAN CELL VOLUME 87.3 fl (80-96); MEAN PLT VOLUME 9.8 fl (7.5-11.1); PLATELET COUNT 218 10^3/uL (134-434); RBC 4.76 M/mm3 (4.00-5.60); RDW 13.9 % (11.9-15.9); WHITE BLOOD COUNT 5.1 K/mm3 (4.0-10.0)
[2023-08-21 12:51] LABS: CALCIUM 8.8 mg/dL (8.5-10.1)
[2023-08-21 12:52] LABS: ALBUMIN 3.6 g/dl (3.4-5.0); BLOOD UREA NITROGEN 10.4 mg/dL (7-18)
[2023-08-21 12:55] LABS: CREATININE 0.7 mg/dL (0.55-1.3)
[2023-08-21 12:57] LABS: BILIRUBIN,TOTAL 0.3 mg/dL (0.2-1)
[2023-08-21] MEDS ORDERED: cloNIDine HCL 0.1 MG TABLET PO PRN (15:55)
[2023-08-21] MEDS: ROSUVASTATIN CA 20 MG TABLET PO SCH (22:19)
[2023-08-21] MEDS: THIAMINE HCL 100 MG TABLET (FP) PO SCH (22:20)
[2023-08-21] MEDS: MELATONIN 5 MG TABLETS PO SCH (22:20)
[2023-08-22] MEDS: chlordiazePOXIDE HCL 25 MG CAPSULE PO SCH ×4 (05:36→22:23)
[2023-08-22] MEDS: metFORMIN HCL 500 MG TABLET (FP) PO SCH ×2 (06:07→17:08)
[2023-08-22] MEDS: INSULIN SLIDING SCALE (NOVOLOG) 1 VIAL SQ SCH ×3 (07:07→17:34)
[2023-08-22] MEDS: NIFEdipine E.R. 30 MG TABLET PO SCH (10:03)
[2023-08-22] MEDS: PRENATAL VITAMINS W/ FOLIC ACID TABLET (FP) PO SCH (10:03)
[2023-08-22] MEDS: THIAMINE HCL 100 MG TABLET (FP) PO SCH (22:22)
[2023-08-22] MEDS: MELATONIN 5 MG TABLETS PO SCH (22:22)
[2023-08-22] MEDS: ROSUVASTATIN CA 20 MG TABLET PO SCH (22:22)
[2023-08-23] MEDS ORDERED: chlordiazePOXIDE HCL 10 MG CAPSULE PO PRN
[2023-08-23] MEDS: chlordiazePOXIDE HCL 10 MG CAPSULE PO SCH ×4 (05:28→22:10)
[2023-08-23] MEDS ORDERED: INSULIN SLIDING SCALE (NOVOLOG) 1 VIAL SQ ONE (05:49)
[2023-08-23] MEDS: INSULIN SLIDING SCALE (NOVOLOG) 1 VIAL SQ SCH ×3 (06:39→17:10)
[2023-08-23] MEDS: metFORMIN HCL 500 MG TABLET (FP) PO SCH ×2 (06:39→17:13)
[2023-08-23] MEDS: PRENATAL VITAMINS W/ FOLIC ACID TABLET (FP) PO SCH (10:08)
[2023-08-23] MEDS: NIFEdipine E.R. 30 MG TABLET PO SCH (10:09)
[2023-08-23] MEDS: THIAMINE HCL 100 MG TABLET (FP) PO SCH (22:08)
[2023-08-23] MEDS: MELATONIN 5 MG TABLETS PO SCH (22:08)
[2023-08-23] MEDS: ROSUVASTATIN CA 20 MG TABLET PO SCH (22:09)
[2023-08-24] MEDS: chlordiazePOXIDE HCL 10 MG CAPSULE PO SCH ×2 (05:33→17:36)
[2023-08-24] MEDS: metFORMIN HCL 500 MG TABLET (FP) PO SCH ×2 (06:49→17:36)
[2023-08-24] MEDS: INSULIN SLIDING SCALE (NOVOLOG) 1 VIAL SQ SCH ×3 (06:49→17:38)
[2023-08-24] MEDS ORDERED: INSULIN SLIDING SCALE (NOVOLOG) 1 VIAL SQ ONE ×2 (06:53→12:01)
[2023-08-24] MEDS: PRENATAL VITAMINS W/ FOLIC ACID TABLET (FP) PO SCH (10:14)
[2023-08-24] MEDS: NIFEdipine E.R. 30 MG TABLET PO SCH (10:14)
[2023-08-24] MEDS: MELATONIN 5 MG TABLETS PO SCH (22:08)
[2023-08-24] MEDS: ROSUVASTATIN CA 20 MG TABLET PO SCH (22:08)
[2023-08-24] MEDS: THIAMINE HCL 100 MG TABLET (FP) PO SCH (22:08)
[2023-08-25] MEDS ORDERED: chlordiazePOXIDE HCL 10 MG CAPSULE PO ONE (05:00)
[2023-08-25] MEDS: metFORMIN HCL 500 MG TABLET (FP) PO SCH ×2 (06:18→17:17)
[2023-08-25] MEDS: INSULIN SLIDING SCALE (NOVOLOG) 1 VIAL SQ SCH ×3 (06:19→17:18)
[2023-08-25] MEDS: NIFEdipine E.R. 30 MG TABLET PO SCH (09:33)
[2023-08-25] MEDS: PRENATAL VITAMINS W/ FOLIC ACID TABLET (FP) PO SCH (09:33)
[2023-08-25] MEDS: THIAMINE HCL 100 MG TABLET (FP) PO SCH (22:42)
[2023-08-25] MEDS: ROSUVASTATIN CA 20 MG TABLET PO SCH (22:42)
[2023-08-25] MEDS: MELATONIN 5 MG TABLETS PO SCH (22:42)
[2023-08-26 06:38] VITALS: BP 140/99; PULSE 90; RESP 16; TEMP 97.5
[2023-08-26] MEDS: metFORMIN HCL 500 MG TABLET (FP) PO SCH (07:22)
[2023-08-26] MEDS: INSULIN SLIDING SCALE (NOVOLOG) 1 VIAL SQ SCH (07:23)
== END 2023-08-26 08:37 | disposition home or self-care (01) | DRG 897 ==
LOC: YASAS 18:59 → Y3N 20:31
PROVIDERS: ADMIT Allergy & Immunology; ATTEND Surgery
PROC: HZ2ZZZZ Detoxification Services for Substance Abuse Treatment (ICD-10-PCS; principal; 2023-08-20)
DX: F10.230 Alcohol dependence with withdrawal, uncomplicated (principal); F12.20 Cannabis dependence, uncomplicated; F17.210 Nicotine dependence, cigarettes, uncomplicated; I10 Essential (primary) hypertension; E78.5 Hyperlipidemia, unspecified; E11.9 Type 2 diabetes mellitus without complications; Z79.84 Long term (current) use of oral hypoglycemic drugs; Z86.59 Personal history of other mental and behavioral disorders; Z86.19 Personal history of other infectious and parasitic diseases
CPT/HCPCS: 36415; 80053; 80307; 82962; 85027; 86780; 87635; Q0162

== ENCOUNTER 2023-10-05 14:58 | Inpatient (IN) | payer OTHER ==
[2023-10-05 15:34] VITALS: BMI 30.4
[2023-10-05] MEDS ORDERED: DOCUSATE SODIUM 100 MG CAPSULE (FP) PO PRN (17:23)
[2023-10-05] MEDS ORDERED: IBUPROFEN 400 MG TABLET (FP) PO PRN (18:32)
[2023-10-05] MEDS ORDERED: P-EPHED 60MG/TRIPROLIDI 2.5MG TABLET PO PRN (18:32)
[2023-10-05] MEDS ORDERED: IBUPROFEN 600 MG TABLET (FP) PO PRN (18:32)
[2023-10-05] MEDS ORDERED: ACETAMINOPHEN 325 MG TABLET (FP) PO PRN (18:32)
[2023-10-05] MEDS ORDERED: BENZONATATE 200 MG CAPSULE PO PRN (18:32)
[2023-10-05] MEDS ORDERED: MAGNESIUM HYDROX 2400MG/30ML ORAL SUSPENSION 30 ML CUP PO PRN (18:32)
[2023-10-05] MEDS ORDERED: guaiFENesin 600 MG TABLET.ER (FP) PO PRN (18:32)
[2023-10-05] MEDS ORDERED: BENZOCAINE/MENTHOL (CHLORASEPTIC ) LOZENGE MM PRN (18:32)
[2023-10-05] MEDS ORDERED: POLYETHYLENE GLYCOL (HEALTHYLAX) 3350 17 GM PACKET PO PRN (18:32)
[2023-10-05] MEDS ORDERED: COLLOIDAL OATMEAL 1 BAR EACH TP PRN (18:32)
[2023-10-05] MEDS ORDERED: LOPERAMIDE HCL 2 MG CAPSULE PO PRN (18:32)
[2023-10-05] MEDS ORDERED: MAG HYDROX/AL HYDROX/SIMETH 30 ML UNIT-DOSE CUP PO PRN (18:32)
[2023-10-05] MEDS: THIAMINE HCL 100 MG TABLET (FP) PO SCH (21:35)
[2023-10-05] MEDS: MELATONIN 5 MG TABLETS PO SCH (21:35)
[2023-10-05] MEDS: INSULIN SLIDING SCALE (NOVOLOG) 1 VIAL SQ SCH (21:37)
[2023-10-05] MEDS ORDERED: ROSUVASTATIN CA 10 MG TABLET ONE (21:40)
[2023-10-05] MEDS: ROSUVASTATIN CA 20 MG TABLET PO SCH (21:44)
[2023-10-06] MEDS: metFORMIN HCL 500 MG TABLET (FP) PO SCH ×2 (06:49→15:48)
[2023-10-06] MEDS: INSULIN SLIDING SCALE (NOVOLOG) 1 VIAL SQ SCH ×4 (07:43→21:05)
[2023-10-06] MEDS: PRENATAL VITAMINS W/ FOLIC ACID TABLET (FP) PO SCH (10:21)
[2023-10-06 11:10] LABS: URINE APPEARANCE CLEAR; URINE BILIRUBIN NEGATIVE (NEGATIVE); URINE COLOR YELLOW; URINE GLUCOSE (UA) 3+ (NEGATIVE); URINE KETONE TRACE (NEGATIVE); URINE LEUK ESTERASE NEGATIVE (NEGATIVE); URINE NITRITE NEGATIVE (NEGATIVE); URINE PROTEIN NEGATIVE (NEGATIVE); URINE UROBILINOGEN 0.2 mg/dL (0.2-1.0)
[2023-10-06] MEDS: NIFEdipine E.R. 30 MG TABLET PO SCH (11:56)
[2023-10-06] MEDS: hydrOXYzine PAMOATE 25 MG CAPSULE (FP) PO PRN (15:48)
[2023-10-06 19:45] LABS: POTASSIUM 3.8 mmol/L (3.5-5.1)
[2023-10-06 19:48] LABS: CALCIUM 8.6 mg/dL (8.5-10.1)
[2023-10-06 19:49] LABS: ALBUMIN 3.6 g/dl (3.4-5.0); BLOOD UREA NITROGEN 9.8 mg/dL (7-18)
[2023-10-06 19:52] LABS: CREATININE 0.7 mg/dL (0.55-1.3)
[2023-10-06 19:54] LABS: BILIRUBIN,TOTAL 0.6 mg/dL (0.2-1); TOT PROT 6.9 g/dl (6.4-8.2)
[2023-10-06] MEDS: THIAMINE HCL 100 MG TABLET (FP) PO SCH (21:04)
[2023-10-06] MEDS: MELATONIN 5 MG TABLETS PO SCH (21:04)
[2023-10-06] MEDS: ROSUVASTATIN CA 20 MG TABLET PO SCH (21:48)
[2023-10-07] MEDS: metFORMIN HCL 500 MG TABLET (FP) PO SCH ×2 (06:29→16:22)
[2023-10-07] MEDS: INSULIN SLIDING SCALE (NOVOLOG) 1 VIAL SQ SCH ×4 (06:32→21:39)
[2023-10-07] MEDS: PRENATAL VITAMINS W/ FOLIC ACID TABLET (FP) PO SCH (10:03)
[2023-10-07] MEDS: NIFEdipine E.R. 30 MG TABLET PO SCH (10:03)
[2023-10-07] MEDS: ROSUVASTATIN CA 20 MG TABLET PO SCH (21:38)
[2023-10-07] MEDS: MELATONIN 5 MG TABLETS PO SCH (21:39)
[2023-10-07] MEDS: THIAMINE HCL 100 MG TABLET (FP) PO SCH (21:39)
[2023-10-08] MEDS: metFORMIN HCL 500 MG TABLET (FP) PO SCH (06:26)
[2023-10-08] MEDS: hydrOXYzine PAMOATE 25 MG CAPSULE (FP) PO PRN (06:29)
[2023-10-08] MEDS: INSULIN SLIDING SCALE (NOVOLOG) 1 VIAL SQ SCH ×2 (06:47→11:49)
[2023-10-08 07:20] VITALS: TEMP 97.1
[2023-10-08 09:54] VITALS: BP 132/87; PULSE 103; RESP 18
[2023-10-08] MEDS: NIFEdipine E.R. 30 MG TABLET PO SCH (10:16)
[2023-10-08] MEDS: PRENATAL VITAMINS W/ FOLIC ACID TABLET (FP) PO SCH (10:16)
[2023-10-08] MEDS ORDERED: AMMONIUM LACTATE 12% LOTION 225 GM BOTTLE TP PRN (12:16)
[2023-10-08] MEDS ORDERED: LACTULOSE 20 GM/30 ML UDC (FOR ORAL USE ONLY) PO PRN (12:18)
[2023-10-08] MEDS ORDERED: metFORMIN HCL 500 MG TABLET (FP) PO SCH (16:30)
[2023-10-09] MEDS ORDERED: NIFEdipine E.R. 30 MG TABLET PO SCH (10:00)
[2023-10-10] MEDS ORDERED: NALTREXONE HCL 50 MG TABLET PO SCH (10:00)
== END 2023-10-08 13:27 | disposition left against medical advice (07) | DRG 894 ==
LOC: YASAS 14:58 → Y3W 18:50
PROVIDERS: ADMIT Allergy & Immunology; ATTEND Psychiatry & Neurology Pain Medicine
PROC: HZ42ZZZ Group Counseling for Substance Abuse Treatment, Cognitive-Behavioral (ICD-10-PCS; principal; 2023-10-05)
DX: F10.20 Alcohol dependence, uncomplicated (principal); F14.20 Cocaine dependence, uncomplicated; F19.280 Other psychoactive substance dependence with psychoactive substance-induced anxiety disorder; F12.20 Cannabis dependence, uncomplicated; F17.210 Nicotine dependence, cigarettes, uncomplicated; F41.9 Anxiety disorder, unspecified; I10 Essential (primary) hypertension; E11.9 Type 2 diabetes mellitus without complications; Z79.84 Long term (current) use of oral hypoglycemic drugs; K59.00 Constipation, unspecified; L85.3 Xerosis cutis
CPT/HCPCS: 36415; 80053; 81003; 82962; 86780; 87635

== ENCOUNTER 2024-06-03 12:32 | Inpatient (IN) | payer OTHER ==
[2024-06-03 13:10] VITALS: BMI 28.5
[2024-06-03] MEDS ORDERED: BENZONATATE 200 MG CAPSULE PO PRN (15:17)
[2024-06-03] MEDS ORDERED: ACETAMINOPHEN 325 MG TABLET (FP) PO PRN (15:17)
[2024-06-03] MEDS ORDERED: DICYCLOMINE HCL 10 MG CAPSULE PO PRN (15:17)
[2024-06-03] MEDS ORDERED: NALOXONE HCL 0.4 MG/ML VIAL IM PRN (15:17)
[2024-06-03] MEDS ORDERED: NALOXONE (NARCAN) HCL 4 MG/0.1 ML SPRAY NS PRN (15:17)
[2024-06-03] MEDS ORDERED: MAG HYDROX/AL HYDROX/SIMETH 30 ML UNIT-DOSE CUP PO PRN (15:17)
[2024-06-03] MEDS ORDERED: IBUPROFEN 400 MG TABLET (FP) PO PRN (15:17)
[2024-06-03] MEDS ORDERED: BENZOCAINE/MENTHOL (CHLORASEPTIC ) LOZENGE MM PRN (15:17)
[2024-06-03] MEDS ORDERED: BISMUTH SUBSALICYLATE 262 MG/15 ML BTL PO PRN (15:17)
[2024-06-03] MEDS ORDERED: guaiFENesin 600 MG TABLET.ER (FP) PO PRN (15:17)
[2024-06-03] MEDS ORDERED: POLYETHYLENE GLYCOL (HEALTHYLAX) 3350 17 GM PACKET PO PRN (15:17)
[2024-06-03] MEDS ORDERED: ONDANSETRON *ODT* 4 MG TABLET SL PRN (15:17)
[2024-06-03] MEDS ORDERED: LOPERAMIDE HCL 2 MG CAPSULE PO PRN (15:17)
[2024-06-03] MEDS ORDERED: MAGNESIUM HYDROX 2400MG/30ML ORAL SUSPENSION 30 ML CUP PO PRN (15:17)
[2024-06-03] MEDS: PRENATAL VITAMINS W/ FOLIC ACID TABLET (FP) PO SCH (16:37)
[2024-06-03] MEDS: IBUPROFEN 600 MG TABLET (FP) PO PRN (17:36)
[2024-06-03] MEDS: hydrOXYzine PAMOATE 25 MG CAPSULE (FP) PO PRN (17:36)
[2024-06-03] MEDS: NIFEdipine E.R. 30 MG TABLET PO SCH ×2 (17:50→19:53)
[2024-06-03] MEDS ORDERED: ROSUVASTATIN CA 10 MG TABLET ONE (21:33)
[2024-06-03] MEDS: THIAMINE 100 MG TABLET PO SCH (22:13)
[2024-06-03] MEDS: MELATONIN 5 MG TABLETS PO SCH (22:13)
[2024-06-03] MEDS: ROSUVASTATIN CA 20 MG TABLET PO SCH (22:14)
[2024-06-04] MEDS: diazePAM 5 MG TABLET PO SCH (10:09)
[2024-06-04 11:42] LABS: HEMATOCRIT 42.6 % (35.4-49); HEMOGLOBIN 14.8 GM/dL (11.7-16.9); MCH 30.7 pg (25.7-33.7); MCHC 34.7 g/dl (32.0-35.9); MEAN CELL VOLUME 88.5 fl (80-96); MEAN PLT VOLUME 9.7 fl (7.5-11.1); PLATELET COUNT 222 10^3/uL (134-434); RBC 4.82 M/mm3 (4.00-5.60); RDW 14.2 % (11.9-15.9); WHITE BLOOD COUNT 5.5 K/mm3 (4.0-10.0)
[2024-06-04 12:00] LABS: CALCIUM 9.6 mg/dL (8.5-10.1)
[2024-06-04 12:01] LABS: BLOOD UREA NITROGEN 13.7 mg/dL (7-18)
[2024-06-04 12:04] LABS: CREATININE 0.9 mg/dL (0.55-1.3)
[2024-06-04 12:05] LABS: TOT PROT 7.4 g/dl (6.4-8.2)
[2024-06-04 12:06] LABS: BILIRUBIN,TOTAL 0.6 mg/dL (0.2-1)
[2024-06-04] MEDS: diazePAM 5 MG TABLET PO PRN (13:55)
[2024-06-04] MEDS: metFORMIN HCL 500 MG TABLET (FP) PO SCH (17:06)
[2024-06-04] MEDS: INSULIN ASPART SLIDING SCALE (NOVOLOG) 1 VIAL SQ SCH (17:10)
[2024-06-04] MEDS: METHOCARBAMOL 500 MG TABLET PO PRN (22:50)
[2024-06-04] MEDS: GABAPENTIN 100 MG CAPSULE PO SCH (22:50)
[2024-06-05] MEDS: DOCUSATE SODIUM 100 MG CAPSULE (FP) PO PRN (09:58)
[2024-06-05] MEDS ORDERED: LACTULOSE 20 GM/30 ML UDC (FOR ORAL USE ONLY) PO PRN (11:50)
[2024-06-06] MEDS: diazePAM 5 MG TABLET PO SCH (05:40)
[2024-06-06] MEDS: LACTULOSE 20 GM/30 ML UDC (FOR ORAL USE ONLY) PO SCH (23:03)
[2024-06-07] MEDS: diazePAM 5 MG TABLET PO SCH (05:49)
[2024-06-07] MEDS ORDERED: INSULIN (NOVOLOG) ASPART 100 UNITS/ML 10ML VIAL ONE (17:06)
[2024-06-07 21:27] VITALS: RESP 18
[2024-06-08] MEDS: diazePAM 5 MG TABLET PO ONE (05:47)
[2024-06-08 09:06] VITALS: BP 142/91; PULSE 91; TEMP 98.2
== END 2024-06-08 09:10 | disposition home or self-care (01) | DRG 897 ==
LOC: YASAS 12:32 → Y3N 15:40 → Y6N 06-05 21:13
PROVIDERS: ADMIT Allergy & Immunology; ATTEND Surgery
PROC: HZ2ZZZZ Detoxification Services for Substance Abuse Treatment (ICD-10-PCS; principal; 2024-06-03)
DX: F10.230 Alcohol dependence with withdrawal, uncomplicated (principal); F14.20 Cocaine dependence, uncomplicated; F12.20 Cannabis dependence, uncomplicated; F17.210 Nicotine dependence, cigarettes, uncomplicated; F41.1 Generalized anxiety disorder; F19.94 Other psychoactive substance use, unspecified with psychoactive substance-induced mood disorder; I10 Essential (primary) hypertension; E11.9 Type 2 diabetes mellitus without complications; E78.5 Hyperlipidemia, unspecified; G47.00 Insomnia, unspecified; K21.9 Gastro-esophageal reflux disease without esophagitis; Z86.19 Personal history of other infectious and parasitic diseases; Z79.84 Long term (current) use of oral hypoglycemic drugs; Z91.198 Patient's noncompliance with other medical treatment and regimen for other reason; Z56.0 Unemployment, unspecified
CPT/HCPCS: 36415; 80053; 80305; 80307; 82140; 82962; 83036; 85027; 86780; 93005; 93010

== ENCOUNTER 2024-07-13 15:39 | Inpatient (IN) | payer OTHER ==
[2024-07-13 17:24] VITALS: BMI 30.8
[2024-07-13] MEDS ORDERED: chlordiazePOXIDE HCL 25 MG CAPSULE PO PRN (19:40)
[2024-07-13] MEDS ORDERED: MAG HYDROX/AL HYDROX/SIMETH 30 ML UNIT-DOSE CUP PO PRN (19:40)
[2024-07-13] MEDS ORDERED: IBUPROFEN 400 MG TABLET (FP) PO PRN (19:40)
[2024-07-13] MEDS ORDERED: DICYCLOMINE HCL 10 MG CAPSULE PO PRN (19:40)
[2024-07-13] MEDS ORDERED: BISMUTH SUBSALICYLATE 524 MG/30 ML PO PRN (19:40)
[2024-07-13] MEDS ORDERED: IBUPROFEN 600 MG TABLET (FP) PO PRN (19:40)
[2024-07-13] MEDS ORDERED: ONDANSETRON *ODT* 4 MG TABLET SL PRN (19:40)
[2024-07-13] MEDS ORDERED: guaiFENesin 600 MG TABLET.ER (FP) PO PRN (19:40)
[2024-07-13] MEDS ORDERED: METHOCARBAMOL 500 MG TABLET PO PRN (19:40)
[2024-07-13] MEDS ORDERED: LOPERAMIDE HCL 2 MG CAPSULE PO PRN (19:40)
[2024-07-13] MEDS ORDERED: NALOXONE HCL 0.4 MG/ML VIAL IM PRN (19:40)
[2024-07-13] MEDS ORDERED: MAGNESIUM HYDROX 2400MG/30ML ORAL SUSPENSION 30 ML CUP PO PRN (19:40)
[2024-07-13] MEDS ORDERED: NALOXONE (NARCAN) HCL 4 MG/0.1 ML SPRAY NS PRN (19:40)
[2024-07-13] MEDS ORDERED: BENZOCAINE/MENTHOL (CHLORASEPTIC ) LOZENGE MM PRN (19:40)
[2024-07-13] MEDS ORDERED: BENZONATATE 200 MG CAPSULE PO PRN (19:40)
[2024-07-13] MEDS ORDERED: MELATONIN 5 MG TABLETS ONE (23:07)
[2024-07-13] MEDS ORDERED: chlordiazePOXIDE HCL 25 MG CAPSULE ONE (23:07)
[2024-07-13] MEDS: MELATONIN 5 MG TABLETS PO SCH (23:25)
[2024-07-13] MEDS: chlordiazePOXIDE HCL 25 MG CAPSULE PO SCH (23:26)
[2024-07-13] MEDS: THIAMINE 100 MG TABLET PO SCH (23:26)
[2024-07-13] MEDS: INSULIN ASPART SLIDING SCALE (NOVOLOG) 1 VIAL SQ ONE (23:31)
[2024-07-13] MEDS: ROSUVASTATIN CA 20 MG TABLET PO SCH (23:34)
[2024-07-14] MEDS: metFORMIN HCL 500 MG TABLET (FP) PO SCH (06:11)
[2024-07-14] MEDS: sitaGLIPtin PHOSPHATE 50 MG TABLET PO SCH (06:11)
[2024-07-14] MEDS: POLYETHYLENE GLYCOL (HEALTHYLAX) 3350 17 GM PACKET PO PRN (06:12)
[2024-07-14] MEDS: NIFEdipine E.R. 30 MG TABLET PO SCH (10:10)
[2024-07-14] MEDS: PRENATAL VITAMINS W/ FOLIC ACID TABLET (FP) PO SCH (10:10)
[2024-07-14 12:32] LABS: HEMATOCRIT 40.3 % (35.4-49); HEMOGLOBIN 13.7 GM/dL (11.7-16.9); MCH 30.2 pg (25.7-33.7); MEAN CELL VOLUME 88.9 fl (80-96); MEAN PLT VOLUME 9.3 fl (7.5-11.1); PLATELET COUNT 165 10^3/uL (134-434); RBC 4.53 M/mm3 (4.00-5.60); RDW 13.8 % (11.9-15.9); WHITE BLOOD COUNT 6.4 K/mm3 (4.0-10.0)
[2024-07-14 12:38] LABS: CHLORIDE 103 mmol/L (98-107); POTASSIUM 4.3 mmol/L (3.5-5.1); SODIUM 140 mmol/L (136-145)
[2024-07-14 12:42] LABS: CALCIUM 9.1 mg/dL (8.5-10.1)
[2024-07-14 12:43] LABS: ALBUMIN 3.6 g/dl (3.4-5.0); ANION GAP 8 mmol/L (4-13); BLOOD UREA NITROGEN 9.1 mg/dL (7-18); CO2 29 mmol/L (21-32); GLUCOSE,RANDOM 314 mg/dL (74-106)
[2024-07-14 12:46] LABS: CREATININE 0.6 mg/dL (0.55-1.3); SGOT/AST 11 U/L (15-37); SGPT/ALT 18 U/L (13-61)
[2024-07-14 12:49] LABS: BILIRUBIN,TOTAL 0.5 mg/dL (0.2-1); TOT PROT 6.6 g/dl (6.4-8.2)
[2024-07-14 12:50] LABS: ALK PHOS 68 U/L (45-117)
[2024-07-14] MEDS: hydrOXYzine PAMOATE 25 MG CAPSULE (FP) PO PRN (17:21)
[2024-07-15] MEDS: chlordiazePOXIDE HCL 25 MG CAPSULE PO SCH (05:44)
[2024-07-15] MEDS: ACETAMINOPHEN 325 MG TABLET (FP) PO PRN (17:22)
[2024-07-15] MEDS: INSULIN ASPART SLIDING SCALE (NOVOLOG) 1 VIAL SQ SCH (22:20)
[2024-07-16] MEDS ORDERED: chlordiazePOXIDE HCL 10 MG CAPSULE PO PRN
[2024-07-16] MEDS: chlordiazePOXIDE HCL 10 MG CAPSULE PO SCH (06:00)
[2024-07-16 21:03] LABS: PH,URINE 6.5 (5.0-8.0); URINE APPEARANCE CLEAR; URINE BILIRUBIN NEGATIVE (NEGATIVE); URINE COLOR YELLOW; URINE GLUCOSE (UA) NEGATIVE (NEGATIVE); URINE KETONE TRACE (NEGATIVE); URINE LEUK ESTERASE NEGATIVE (NEGATIVE); URINE NITRITE NEGATIVE (NEGATIVE); URINE PROTEIN TRACE (NEGATIVE); URINE UROBILINOGEN 0.2 mg/dL (0.2-1.0)
[2024-07-17] MEDS: chlordiazePOXIDE HCL 10 MG CAPSULE PO SCH (05:37)
[2024-07-17 09:46] VITALS: BP 142/96; PULSE 95; RESP 18; TEMP 96.9
[2024-07-18] MEDS ORDERED: chlordiazePOXIDE HCL 10 MG CAPSULE PO ONE (05:00)
== END 2024-07-17 09:30 | disposition home or self-care (01) | DRG 897 ==
LOC: YASAS 15:39 → Y3N 22:22
PROVIDERS: ADMIT Allergy & Immunology; ATTEND Surgery
PROC: HZ2ZZZZ Detoxification Services for Substance Abuse Treatment (ICD-10-PCS; principal; 2024-07-13)
DX: F10.230 Alcohol dependence with withdrawal, uncomplicated (principal); F13.20 Sedative, hypnotic or anxiolytic dependence, uncomplicated; F12.20 Cannabis dependence, uncomplicated; F17.210 Nicotine dependence, cigarettes, uncomplicated; F41.1 Generalized anxiety disorder; I10 Essential (primary) hypertension; E78.5 Hyperlipidemia, unspecified; E11.9 Type 2 diabetes mellitus without complications; Z79.84 Long term (current) use of oral hypoglycemic drugs; K59.00 Constipation, unspecified; Z86.19 Personal history of other infectious and parasitic diseases
CPT/HCPCS: 36415; 80053; 80305; 80307; 81003; 82962; 83036; 85027; 86780; 93005; 93010

== ENCOUNTER 2024-08-02 09:07 | Inpatient (IN) | payer OTHER ==
[2024-08-02] MEDS ORDERED: MAGNESIUM HYDROX 2400MG/30ML ORAL SUSPENSION 30 ML CUP PO PRN (10:26)
[2024-08-02] MEDS ORDERED: METHOCARBAMOL 500 MG TABLET PO PRN (10:26)
[2024-08-02] MEDS ORDERED: BENZOCAINE/MENTHOL (CHLORASEPTIC ) LOZENGE MM PRN (10:26)
[2024-08-02] MEDS ORDERED: NALOXONE (NARCAN) HCL 4 MG/0.1 ML SPRAY NS PRN (10:26)
[2024-08-02] MEDS ORDERED: LOPERAMIDE HCL 2 MG CAPSULE PO PRN (10:26)
[2024-08-02] MEDS ORDERED: BISMUTH SUBSALICYLATE 524 MG/30 ML PO PRN (10:26)
[2024-08-02] MEDS ORDERED: NALOXONE HCL 0.4 MG/ML VIAL IM PRN (10:26)
[2024-08-02] MEDS ORDERED: DICYCLOMINE HCL 10 MG CAPSULE PO PRN (10:26)
[2024-08-02] MEDS ORDERED: BENZONATATE 200 MG CAPSULE PO PRN (10:26)
[2024-08-02] MEDS ORDERED: POLYETHYLENE GLYCOL (HEALTHYLAX) 3350 17 GM PACKET PO PRN (10:26)
[2024-08-02] MEDS ORDERED: guaiFENesin 600 MG TABLET.ER (FP) PO PRN (10:26)
[2024-08-02] MEDS ORDERED: ONDANSETRON *ODT* 4 MG TABLET SL PRN (10:26)
[2024-08-02] MEDS ORDERED: chlordiazePOXIDE HCL 25 MG CAPSULE PO PRN (10:26)
[2024-08-02] MEDS ORDERED: AMMONIUM LACTATE 12% LOTION 225 GM BOTTLE TP PRN (10:26)
[2024-08-02] MEDS ORDERED: ACETAMINOPHEN 325 MG TABLET (FP) PO PRN (10:26)
[2024-08-02] MEDS ORDERED: IBUPROFEN 600 MG TABLET (FP) PO PRN (10:26)
[2024-08-02] MEDS ORDERED: IBUPROFEN 400 MG TABLET (FP) PO PRN (10:26)
[2024-08-02] MEDS ORDERED: MAG HYDROX/AL HYDROX/SIMETH 30 ML UNIT-DOSE CUP PO PRN (10:26)
[2024-08-02] MEDS ORDERED: INSULIN (NOVOLOG) ASPART 100 UNITS/ML 10ML VIAL ONE ×2 (11:00→17:05)
[2024-08-02] MEDS: INSULIN ASPART SLIDING SCALE (NOVOLOG) 1 VIAL SQ SCH (11:03)
[2024-08-02] MEDS: NIFEdipine E.R. 30 MG TABLET PO SCH (11:39)
[2024-08-02] MEDS: PANTOPRAZOLE 40 MG TABLET PO SCH (11:39)
[2024-08-02] MEDS: chlordiazePOXIDE HCL 25 MG CAPSULE PO SCH (17:07)
[2024-08-02] MEDS: MELATONIN 5 MG TABLETS PO SCH (22:18)
[2024-08-02] MEDS: ROSUVASTATIN CA 20 MG TABLET PO SCH (22:18)
[2024-08-02] MEDS: THIAMINE 100 MG TABLET PO SCH (22:18)
[2024-08-03] MEDS: PRENATAL VITAMINS W/ FOLIC ACID TABLET (FP) PO SCH (10:09)
[2024-08-03 11:09] LABS: CHLORIDE 104 mmol/L (98-107); SODIUM 138 mmol/L (136-145)
[2024-08-03 11:10] LABS: HEMATOCRIT 42.4 % (35.4-49); HEMOGLOBIN 14.6 GM/dL (11.7-16.9); MCH 30.9 pg (25.7-33.7); MCHC 34.5 g/dl (32.0-35.9); MEAN CELL VOLUME 89.7 fl (80-96); MEAN PLT VOLUME 8.9 fl (7.5-11.1); PLATELET COUNT 217 10^3/uL (134-434); RBC 4.72 M/mm3 (4.00-5.60); RDW 13.7 % (11.9-15.9); WHITE BLOOD COUNT 5.9 K/mm3 (4.0-10.0)
[2024-08-03 11:17] LABS: ALBUMIN 3.9 g/dl (3.4-5.0); ANION GAP 3 mmol/L (4-13); BLOOD UREA NITROGEN 7.2 mg/dL (7-18); CALCIUM 9.2 mg/dL (8.5-10.1); CO2 31 mmol/L (21-32); GLUCOSE,RANDOM 155 mg/dL (74-106)
[2024-08-03 11:20] LABS: CREATININE 0.6 mg/dL (0.55-1.3); SGPT/ALT 16 U/L (13-61)
[2024-08-03 11:21] LABS: SGOT/AST 10 U/L (15-37)
[2024-08-03 11:22] LABS: BILIRUBIN,TOTAL 0.5 mg/dL (0.2-1); TOT PROT 7.2 g/dl (6.4-8.2)
[2024-08-03 11:23] LABS: ALK PHOS 70 U/L (45-117)
[2024-08-04] MEDS: chlordiazePOXIDE HCL 25 MG CAPSULE PO SCH (05:45)
[2024-08-04] MEDS ORDERED: INSULIN (NOVOLOG) ASPART 100 UNITS/ML 10ML VIAL ONE ×2 (11:56→16:30)
[2024-08-05] MEDS ORDERED: chlordiazePOXIDE HCL 10 MG CAPSULE PO PRN
[2024-08-05] MEDS: chlordiazePOXIDE HCL 10 MG CAPSULE PO SCH (05:39)
[2024-08-05] MEDS: hydrOXYzine PAMOATE 25 MG CAPSULE (FP) PO PRN (05:45)
[2024-08-05 06:12] VITALS: RESP 16
[2024-08-05 09:02] VITALS: BP 154/99; PULSE 92; TEMP 97.1
[2024-08-06] MEDS ORDERED: chlordiazePOXIDE HCL 10 MG CAPSULE PO SCH (05:00)
[2024-08-07] MEDS ORDERED: chlordiazePOXIDE HCL 10 MG CAPSULE PO ONE (05:00)
== END 2024-08-05 09:00 | disposition home or self-care (01) | DRG 897 ==
LOC: YASAS 09:07 → Y6N 11:12
PROVIDERS: ADMIT Allergy & Immunology; ATTEND Surgery
PROC: HZ2ZZZZ Detoxification Services for Substance Abuse Treatment (ICD-10-PCS; principal; 2024-08-02)
DX: F10.230 Alcohol dependence with withdrawal, uncomplicated (principal); F13.20 Sedative, hypnotic or anxiolytic dependence, uncomplicated; F14.20 Cocaine dependence, uncomplicated; F19.280 Other psychoactive substance dependence with psychoactive substance-induced anxiety disorder; F19.282 Other psychoactive substance dependence with psychoactive substance-induced sleep disorder; F12.20 Cannabis dependence, uncomplicated; F41.9 Anxiety disorder, unspecified; I10 Essential (primary) hypertension; K21.9 Gastro-esophageal reflux disease without esophagitis; E78.2 Mixed hyperlipidemia; E11.9 Type 2 diabetes mellitus without complications; Z79.84 Long term (current) use of oral hypoglycemic drugs; Z86.19 Personal history of other infectious and parasitic diseases; Z88.8 Allergy status to other drugs, medicaments and biological substances
CPT/HCPCS: 36415; 80053; 80305; 80307; 82962; 85027; 86780; 93005; 93010

== ENCOUNTER 2024-08-29 11:34 | Inpatient (IN) | payer OTHER ==
[2024-08-29 12:05] VITALS: BMI 29.7
[2024-08-29] MEDS ORDERED: LORazepam 1 MG TABLET PO PRN (12:47)
[2024-08-29] MEDS ORDERED: METHOCARBAMOL 500 MG TABLET PO PRN (12:47)
[2024-08-29] MEDS ORDERED: ONDANSETRON *ODT* 4 MG TABLET SL PRN (12:47)
[2024-08-29] MEDS ORDERED: POLYETHYLENE GLYCOL (HEALTHYLAX) 3350 17 GM PACKET PO PRN (12:47)
[2024-08-29] MEDS ORDERED: LOPERAMIDE HCL 2 MG CAPSULE PO PRN (12:47)
[2024-08-29] MEDS ORDERED: guaiFENesin 600 MG TABLET.ER (FP) PO PRN (12:47)
[2024-08-29] MEDS ORDERED: IBUPROFEN 600 MG TABLET (FP) PO PRN (12:47)
[2024-08-29] MEDS ORDERED: BENZONATATE 200 MG CAPSULE PO PRN (12:47)
[2024-08-29] MEDS ORDERED: MAG HYDROX/AL HYDROX/SIMETH 30 ML UNIT-DOSE CUP PO PRN (12:47)
[2024-08-29] MEDS ORDERED: BENZOCAINE/MENTHOL (CHLORASEPTIC ) LOZENGE MM PRN (12:47)
[2024-08-29] MEDS ORDERED: BISMUTH SUBSALICYLATE 262 MG/15 ML BTL PO PRN (12:47)
[2024-08-29] MEDS ORDERED: ACETAMINOPHEN 325 MG TABLET (FP) PO PRN (12:47)
[2024-08-29] MEDS ORDERED: DICYCLOMINE HCL 10 MG CAPSULE PO PRN (12:47)
[2024-08-29] MEDS ORDERED: IBUPROFEN 400 MG TABLET (FP) PO PRN (12:47)
[2024-08-29] MEDS ORDERED: NALOXONE (NARCAN) HCL 4 MG/0.1 ML SPRAY NS PRN (12:47)
[2024-08-29] MEDS: NICOTINE 14 MG/24 HOURS TOPICAL PATCH TD SCH (13:46)
[2024-08-29] MEDS: PRENATAL VITAMINS W/ FOLIC ACID TABLET (FP) PO SCH (13:46)
[2024-08-29] MEDS: LORazepam 2 MG TABLET PO SCH (16:35)
[2024-08-29] MEDS: metFORMIN HCL 500 MG TABLET (FP) PO SCH (16:35)
[2024-08-29] MEDS: THIAMINE 100 MG TABLET PO SCH (22:17)
[2024-08-29] MEDS: MELATONIN 5 MG TABLETS PO SCH (22:18)
[2024-08-29] MEDS: MAGNESIUM HYDROX 2400MG/30ML ORAL SUSPENSION 30 ML CUP PO PRN (22:20)
[2024-08-30 09:27] LABS: POTASSIUM 4.2 mmol/L (3.5-5.1)
[2024-08-30 09:39] LABS: CALCIUM 8.9 mg/dL (8.5-10.1)
[2024-08-30 09:40] LABS: ALBUMIN 3.8 g/dl (3.4-5.0); BLOOD UREA NITROGEN 6.3 mg/dL (7-18)
[2024-08-30 09:42] LABS: CREATININE 0.6 mg/dL (0.55-1.3)
[2024-08-30 09:45] LABS: BILIRUBIN,TOTAL 0.6 mg/dL (0.2-1); TOT PROT 6.8 g/dl (6.4-8.2)
[2024-08-30 09:48] LABS: HEMATOCRIT 41.7 % (35.4-49); HEMOGLOBIN 14.5 GM/dL (11.7-16.9); MCH 30.7 pg (25.7-33.7); MCHC 34.8 g/dl (32.0-35.9); MEAN CELL VOLUME 88.2 fl (80-96); MEAN PLT VOLUME 8.9 fl (7.5-11.1); PLATELET COUNT 201 10^3/uL (134-434); RBC 4.73 M/mm3 (4.00-5.60); RDW 13.1 % (11.9-15.9); WHITE BLOOD COUNT 6.2 K/mm3 (4.0-10.0)
[2024-08-30] MEDS ORDERED: NALTREXONE HCL 50 MG TABLET PO SCH (10:00)
[2024-08-30] MEDS: NIFEdipine E.R. 30 MG TABLET PO SCH (10:05)
[2024-08-30] MEDS: FAMOTIDINE 20 MG TABLET PO SCH (10:05)
[2024-08-30] MEDS: ROSUVASTATIN CA 20 MG TABLET PO SCH (10:59)
[2024-08-31] MEDS: LORazepam 1 MG TABLET PO SCH (05:34)
[2024-08-31] MEDS: hydrOXYzine PAMOATE 25 MG CAPSULE (FP) PO PRN (17:11)
[2024-09-01] MEDS ORDERED: LORazepam 0.5 MG TABLET PO PRN
[2024-09-01] MEDS: LORazepam 0.5 MG TABLET PO SCH (05:37)
[2024-09-02] MEDS: LORazepam 0.5 MG TABLET PO ONE (05:40)
[2024-09-02 08:38] VITALS: BP 138/94; PULSE 94; RESP 18; TEMP 97.6
[2024-09-02] MEDS: NALOXONE (NYS OPIOID OVERDOSE PROGRAM) 4 MG/0.1 ML SPRAY NS PRN (10:00)
== END 2024-09-02 10:00 | disposition home or self-care (01) | DRG 897 ==
LOC: YASAS 11:34 → Y6N 13:48
PROVIDERS: ADMIT Allergy & Immunology; ATTEND Surgery
PROC: HZ2ZZZZ Detoxification Services for Substance Abuse Treatment (ICD-10-PCS; principal; 2024-08-29)
DX: F10.230 Alcohol dependence with withdrawal, uncomplicated (principal); F14.20 Cocaine dependence, uncomplicated; F17.210 Nicotine dependence, cigarettes, uncomplicated; F41.9 Anxiety disorder, unspecified; E78.2 Mixed hyperlipidemia; I10 Essential (primary) hypertension; K21.9 Gastro-esophageal reflux disease without esophagitis; E11.9 Type 2 diabetes mellitus without complications; Z79.84 Long term (current) use of oral hypoglycemic drugs; Z86.19 Personal history of other infectious and parasitic diseases
CPT/HCPCS: 36415; 80053; 80305; 80307; 82962; 85027; 86780; 93005; 93010

== ENCOUNTER 2024-11-11 17:43 | Inpatient (IN) | payer OTHER ==
[2024-11-11 18:05] VITALS: BMI 27.8
[2024-11-11] MEDS ORDERED: DICYCLOMINE HCL 10 MG CAPSULE PO PRN (18:13)
[2024-11-11] MEDS ORDERED: ONDANSETRON *ODT* 4 MG TABLET SL PRN (18:13)
[2024-11-11] MEDS ORDERED: BENZONATATE 200 MG CAPSULE PO PRN (18:13)
[2024-11-11] MEDS ORDERED: LOPERAMIDE HCL 2 MG CAPSULE PO PRN (18:13)
[2024-11-11] MEDS ORDERED: NALOXONE (NARCAN) HCL 4 MG/0.1 ML SPRAY NS PRN (18:13)
[2024-11-11] MEDS ORDERED: MAGNESIUM HYDROX 2400MG/30ML ORAL SUSPENSION 30 ML CUP PO PRN (18:13)
[2024-11-11] MEDS ORDERED: POLYETHYLENE GLYCOL (HEALTHYLAX) 3350 17 GM PACKET PO PRN (18:13)
[2024-11-11] MEDS ORDERED: BENZOCAINE/MENTHOL (CHLORASEPTIC ) LOZENGE MM PRN (18:13)
[2024-11-11] MEDS ORDERED: IBUPROFEN 400 MG TABLET (FP) PO PRN (18:13)
[2024-11-11] MEDS ORDERED: MAG HYDROX/AL HYDROX/SIMETH 30 ML UNIT-DOSE CUP PO PRN (18:13)
[2024-11-11] MEDS ORDERED: BISMUTH SUBSALICYLATE 524 MG/30 ML PO PRN (18:13)
[2024-11-11] MEDS ORDERED: METHOCARBAMOL 500 MG TABLET PO PRN (18:13)
[2024-11-11] MEDS ORDERED: guaiFENesin 600 MG TABLET.ER (FP) PO PRN (18:13)
[2024-11-11] MEDS ORDERED: ACETAMINOPHEN 325 MG TABLET (FP) PO PRN (18:13)
[2024-11-11] MEDS ORDERED: IBUPROFEN 600 MG TABLET (FP) PO PRN (18:13)
[2024-11-11] MEDS ORDERED: diazePAM 5 MG TABLET ONE (23:54)
[2024-11-11] MEDS: ROSUVASTATIN CA 40 MG TABLET PO SCH (23:58)
[2024-11-11] MEDS: MELATONIN 5 MG TABLETS PO SCH (23:58)
[2024-11-11] MEDS: diazePAM 5 MG TABLET PO SCH (23:58)
[2024-11-11] MEDS: THIAMINE 100 MG TABLET PO SCH (23:58)
[2024-11-12] MEDS: ROSUVASTATIN CA 10 MG TABLET PO SCH (00:48)
[2024-11-12] MEDS ORDERED: diazePAM 5 MG TABLET ONE (06:34)
[2024-11-12] MEDS: diazePAM 5 MG TABLET PO SCH (06:37)
[2024-11-12] MEDS: metFORMIN HCL 500 MG TABLET (FP) PO SCH (06:44)
[2024-11-12] MEDS: FAMOTIDINE 20 MG TABLET PO SCH (07:31)
[2024-11-12 08:55] VITALS: RESP 16
[2024-11-12] MEDS ORDERED: PRENATAL VITAMINS W/ FOLIC ACID TABLET (FP) PO ONE (09:02)
[2024-11-12] MEDS: NIFEdipine E.R. 30 MG TABLET PO SCH (09:16)
[2024-11-12] MEDS: PRENATAL VITAMINS W/ FOLIC ACID TABLET (FP) PO SCH (09:16)
[2024-11-12] MEDS: hydrOXYzine PAMOATE 25 MG CAPSULE (FP) PO PRN (14:19)
[2024-11-12 17:16] LABS: CHLORIDE 104 mmol/L (98-107); POTASSIUM 4.3 mmol/L (3.5-5.1); SODIUM 138 mmol/L (136-145)
[2024-11-12 17:18] LABS: CALCIUM 9.4 mg/dL (8.5-10.1)
[2024-11-12 17:19] LABS: ALBUMIN 3.7 g/dl (3.4-5.0); ANION GAP 3 mmol/L (4-13); BLOOD UREA NITROGEN 8.4 mg/dL (7-18); CO2 32 mmol/L (21-32); GLUCOSE,RANDOM 208 mg/dL (74-106)
[2024-11-12 17:22] LABS: CREATININE 0.8 mg/dL (0.55-1.3); SGOT/AST 17 U/L (15-37); SGPT/ALT 22 U/L (13-61)
[2024-11-12 17:23] LABS: BILIRUBIN,TOTAL 0.4 mg/dL (0.2-1); TOT PROT 7.1 g/dl (6.4-8.2)
[2024-11-12] MEDS: diazePAM 5 MG TABLET PO PRN (17:24)
[2024-11-12 17:25] LABS: ALK PHOS 76 U/L (45-117)
[2024-11-12 17:28] LABS: HEMATOCRIT 41.9 % (35.4-49); HEMOGLOBIN 14.5 GM/dL (11.7-16.9); MCH 30.2 pg (25.7-33.7); MCHC 34.6 g/dl (32.0-35.9); MEAN CELL VOLUME 87.4 fl (80-96); PLATELET COUNT 197 10^3/uL (134-434); RBC 4.79 M/mm3 (4.00-5.60); RDW 13.9 % (11.9-15.9); WHITE BLOOD COUNT 4.5 K/mm3 (4.0-10.0)
[2024-11-12 17:33] VITALS: TEMP 96.9
[2024-11-12 20:15] VITALS: BP 142/96; PULSE 93
[2024-11-12] MEDS ORDERED: NALOXONE (NYS OPIOID OVERDOSE PROGRAM) 4 MG/0.1 ML SPRAY NS SCH (20:25)
[2024-11-13] MEDS ORDERED: diazePAM 5 MG TABLET PO SCH (06:00)
[2024-11-14] MEDS ORDERED: diazePAM 5 MG TABLET PO ONE (06:00)
== END 2024-11-12 20:30 | disposition left against medical advice (07) | DRG 894 ==
LOC: YASAS 17:43 → Y6N 11-12 11:28
PROVIDERS: ADMIT Allergy & Immunology; ATTEND Allergy & Immunology
PROC: HZ2ZZZZ Detoxification Services for Substance Abuse Treatment (ICD-10-PCS; principal; 2024-11-12)
DX: F10.230 Alcohol dependence with withdrawal, uncomplicated (principal); F13.20 Sedative, hypnotic or anxiolytic dependence, uncomplicated; F19.282 Other psychoactive substance dependence with psychoactive substance-induced sleep disorder; F19.280 Other psychoactive substance dependence with psychoactive substance-induced anxiety disorder; F19.24 Other psychoactive substance dependence with psychoactive substance-induced mood disorder; F12.20 Cannabis dependence, uncomplicated; E78.2 Mixed hyperlipidemia; I10 Essential (primary) hypertension; K21.9 Gastro-esophageal reflux disease without esophagitis; E11.9 Type 2 diabetes mellitus without complications; Z79.84 Long term (current) use of oral hypoglycemic drugs; Z87.891 Personal history of nicotine dependence; Z86.19 Personal history of other infectious and parasitic diseases
CPT/HCPCS: 36415; 80053; 80305; 80307; 82962; 85027

== ENCOUNTER 2024-12-06 17:11 | Inpatient (IN) | payer MEDICARE, OTHER ==
[2024-12-06 17:32] VITALS: BMI 29.7
[2024-12-06] MEDS ORDERED: DICYCLOMINE HCL 10 MG CAPSULE PO PRN (18:14)
[2024-12-06] MEDS ORDERED: BENZOCAINE/MENTHOL (CHLORASEPTIC ) LOZENGE MM PRN (18:14)
[2024-12-06] MEDS ORDERED: IBUPROFEN 400 MG TABLET (FP) PO PRN (18:14)
[2024-12-06] MEDS ORDERED: MAG HYDROX/AL HYDROX/SIMETH 30 ML UNIT-DOSE CUP PO PRN (18:14)
[2024-12-06] MEDS ORDERED: IBUPROFEN 600 MG TABLET (FP) PO PRN (18:14)
[2024-12-06] MEDS ORDERED: ONDANSETRON *ODT* 4 MG TABLET SL PRN (18:14)
[2024-12-06] MEDS ORDERED: BENZONATATE 200 MG CAPSULE PO PRN (18:14)
[2024-12-06] MEDS ORDERED: NICOTINE POLACRILEX 2 MG GUM BUC PRN (18:14)
[2024-12-06] MEDS ORDERED: LOPERAMIDE HCL 2 MG CAPSULE PO PRN (18:14)
[2024-12-06] MEDS ORDERED: BISMUTH SUBSALICYLATE 524 MG/30 ML PO PRN (18:14)
[2024-12-06] MEDS ORDERED: P-EPHED 60MG/TRIPROLIDI 2.5MG TABLET PO PRN (18:14)
[2024-12-06] MEDS ORDERED: guaiFENesin 600 MG TABLET.ER (FP) PO PRN (18:14)
[2024-12-06] MEDS ORDERED: NICOTINE POLACRILEX 2 MG LOZENGE BC PRN (18:14)
[2024-12-06] MEDS ORDERED: ACETAMINOPHEN 325 MG TABLET (FP) PO PRN (18:14)
[2024-12-06] MEDS: ROSUVASTATIN CA 20 MG TABLET PO SCH (22:06)
[2024-12-06] MEDS: MELATONIN 5 MG TABLETS PO SCH (22:30)
[2024-12-06] MEDS: THIAMINE 100 MG TABLET PO SCH (22:30)
[2024-12-06] MEDS: METHOCARBAMOL 500 MG TABLET PO PRN (22:32)
[2024-12-06] MEDS: hydrOXYzine PAMOATE 25 MG CAPSULE (FP) PO PRN (22:32)
[2024-12-07] MEDS: metFORMIN HCL 500 MG TABLET (FP) PO SCH (06:22)
[2024-12-07] MEDS ORDERED: diazePAM 5 MG TABLET PO PRN (09:44)
[2024-12-07] MEDS: PRENATAL VITAMINS W/ FOLIC ACID TABLET (FP) PO SCH (10:01)
[2024-12-07] MEDS: NIFEdipine E.R. 30 MG TABLET PO SCH (10:03)
[2024-12-07] MEDS: FAMOTIDINE 20 MG TABLET PO SCH (10:03)
[2024-12-07] MEDS: diazePAM 5 MG TABLET PO SCH (10:03)
[2024-12-08] MEDS: MAGNESIUM HYDROX 2400MG/30ML ORAL SUSPENSION 30 ML CUP PO PRN (17:20)
[2024-12-09] MEDS: diazePAM 5 MG TABLET PO SCH (05:41)
[2024-12-09] MEDS: POLYETHYLENE GLYCOL (HEALTHYLAX) 3350 17 GM PACKET PO PRN (10:43)
[2024-12-09 11:02] LABS: HEMATOCRIT 46.2 % (35.4-49); HEMOGLOBIN 15.5 GM/dL (11.7-16.9); MCH 30.1 pg (25.7-33.7); MCHC 33.6 g/dl (32.0-35.9); MEAN CELL VOLUME 89.7 fl (80-96); MEAN PLT VOLUME 9.2 fl (7.5-11.1); PLATELET COUNT 199 10^3/uL (134-434); RBC 5.15 M/mm3 (4.00-5.60); RDW 14.3 % (11.9-15.9); WHITE BLOOD COUNT 5.8 K/mm3 (4.0-10.0)
[2024-12-09 11:09] LABS: POTASSIUM 3.9 mmol/L (3.5-5.1)
[2024-12-09 11:16] LABS: ALBUMIN 3.8 g/dl (3.4-5.0); BLOOD UREA NITROGEN 11.2 mg/dL (7-18); CALCIUM 9.4 mg/dL (8.5-10.1)
[2024-12-09 11:19] LABS: CREATININE 0.7 mg/dL (0.55-1.3)
[2024-12-09 11:21] LABS: BILIRUBIN,TOTAL 0.7 mg/dL (0.2-1); TOT PROT 7.2 g/dl (6.4-8.2)
[2024-12-10] MEDS: diazePAM 5 MG TABLET PO SCH (05:29)
[2024-12-10] MEDS: METOPROLOL TARTRATE 25 MG TABLET (FP) PO ONE (17:09)
[2024-12-10] MEDS: ASPIRIN COATED 81 MG TABLET.EC PO SCH (17:09)
[2024-12-11] MEDS: diazePAM 5 MG TABLET PO ONE (05:50)
[2024-12-11 06:04] VITALS: BP 113/96; PULSE 61; RESP 17; TEMP 99.1
== END 2024-12-11 08:40 | disposition home or self-care (01) | DRG 897 ==
LOC: YASAS 17:11 → Y3N 19:14
PROVIDERS: ADMIT Allergy & Immunology; ATTEND Allergy & Immunology
PROC: HZ2ZZZZ Detoxification Services for Substance Abuse Treatment (ICD-10-PCS; principal; 2024-12-06)
DX: F10.230 Alcohol dependence with withdrawal, uncomplicated (principal); F19.282 Other psychoactive substance dependence with psychoactive substance-induced sleep disorder; F12.20 Cannabis dependence, uncomplicated; F17.210 Nicotine dependence, cigarettes, uncomplicated; F19.24 Other psychoactive substance dependence with psychoactive substance-induced mood disorder; F41.1 Generalized anxiety disorder; I10 Essential (primary) hypertension; E78.2 Mixed hyperlipidemia; E11.9 Type 2 diabetes mellitus without complications; Z79.84 Long term (current) use of oral hypoglycemic drugs; K21.9 Gastro-esophageal reflux disease without esophagitis; Z86.19 Personal history of other infectious and parasitic diseases; Z88.8 Allergy status to other drugs, medicaments and biological substances
CPT/HCPCS: 36415; 80053; 80305; 80307; 82962; 85027

== ENCOUNTER 2025-01-31 15:41 | Inpatient (IN) | payer OTHER ==
[2025-01-31 16:22] VITALS: BMI 31.3
[2025-01-31] MEDS ORDERED: MAG HYDROX/AL HYDROX/SIMETH 30 ML UNIT-DOSE CUP PO PRN (17:02)
[2025-01-31] MEDS ORDERED: POLYETHYLENE GLYCOL (HEALTHYLAX) 3350 17 GM PACKET PO PRN (17:02)
[2025-01-31] MEDS ORDERED: IBUPROFEN 600 MG TABLET (FP) PO PRN (17:02)
[2025-01-31] MEDS ORDERED: guaiFENesin 600 MG TABLET.ER (FP) PO PRN (17:02)
[2025-01-31] MEDS ORDERED: ACETAMINOPHEN 325 MG TABLET (FP) PO PRN (17:02)
[2025-01-31] MEDS ORDERED: BENZONATATE 200 MG CAPSULE PO PRN (17:02)
[2025-01-31] MEDS ORDERED: BISMUTH SUBSALICYLATE 524 MG/30 ML PO PRN (17:02)
[2025-01-31] MEDS ORDERED: IBUPROFEN 400 MG TABLET (FP) PO PRN (17:02)
[2025-01-31] MEDS ORDERED: BENZOCAINE/MENTHOL (CHLORASEPTIC ) LOZENGE MM PRN (17:02)
[2025-01-31] MEDS ORDERED: DICYCLOMINE HCL 10 MG CAPSULE PO PRN (17:02)
[2025-01-31] MEDS ORDERED: LOPERAMIDE HCL 2 MG CAPSULE PO PRN (17:02)
[2025-01-31] MEDS ORDERED: ONDANSETRON *ODT* 4 MG TABLET SL PRN (17:02)
[2025-01-31] MEDS ORDERED: NALOXONE (NARCAN) HCL 4 MG/0.1 ML SPRAY NS PRN (17:02)
[2025-01-31] MEDS ORDERED: BACITRACIN ZINC 15 GM TUBE TOPICAL OINTMENT TP PRN (17:08)
[2025-01-31] MEDS: ROSUVASTATIN CA 20 MG TABLET PO SCH (21:56)
[2025-01-31] MEDS: MELATONIN 5 MG TABLETS PO SCH (21:56)
[2025-01-31] MEDS: THIAMINE 100 MG TABLET PO SCH (21:56)
[2025-02-01] MEDS: hydrOXYzine PAMOATE 25 MG CAPSULE (FP) PO PRN (06:16)
[2025-02-01] MEDS: METHOCARBAMOL 500 MG TABLET PO PRN (06:16)
[2025-02-01] MEDS: MAGNESIUM HYDROX 2400MG/30ML ORAL SUSPENSION 30 ML CUP PO PRN (06:17)
[2025-02-01] MEDS: INSULIN ASPART SLIDING SCALE (NOVOLOG) 1 VIAL SQ ONE ×2 (08:25→10:28)
[2025-02-01 09:02] LABS: HEMATOCRIT 39.2 % (40.1-51.0); HEMOGLOBIN 13.2 g/dL (13.7-17.5); MCHC 33.7 g/dl (32.3-36.5); MEAN CELL VOLUME 87.9 fl (79.0-92.2); MEAN PLT VOLUME 11.1 fl (9.4-12.4); PLATELET COUNT 243 x10^3/uL (163-337); RDW 11.8 % (12.2-16.1)
[2025-02-01 09:07] LABS: CHLORIDE 102 mmol/L (98-107); POTASSIUM 3.8 mmol/L (3.5-5.1); SODIUM 140 mmol/L (136-145)
[2025-02-01 09:22] LABS: ALBUMIN 3.4 g/dl (3.4-5.0); ANION GAP 8 mmol/L (4-13); BLOOD UREA NITROGEN 7.9 mg/dL (7-18); CALCIUM 8.8 mg/dL (8.5-10.1); CO2 29 mmol/L (21-32)
[2025-02-01 09:24] LABS: GLUCOSE,RANDOM 416 mg/dL (74-106)
[2025-02-01 09:25] LABS: CREATININE 0.7 mg/dL (0.55-1.3); SGOT/AST 13 U/L (15-37); SGPT/ALT 17 U/L (13-61)
[2025-02-01 09:27] LABS: BILIRUBIN,TOTAL 0.3 mg/dL (0.2-1); TOT PROT 6.7 g/dl (6.4-8.2)
[2025-02-01 09:28] LABS: ALK PHOS 94 U/L (45-117)
[2025-02-01] MEDS: PRENATAL VITAMINS W/ FOLIC ACID TABLET (FP) PO SCH (10:04)
[2025-02-01] MEDS: FAMOTIDINE 20 MG TABLET PO SCH (10:04)
[2025-02-01] MEDS: NIFEdipine E.R. 30 MG TABLET PO SCH (10:04)
[2025-02-01] MEDS ORDERED: diazePAM 5 MG TABLET PO PRN (11:01)
[2025-02-01] MEDS: diazePAM 5 MG TABLET PO SCH (11:17)
[2025-02-01] MEDS: INSULIN ASPART SLIDING SCALE (NOVOLOG) 1 VIAL SQ SCH (11:21)
[2025-02-01] MEDS: metFORMIN HCL 500 MG TABLET (FP) PO SCH (16:40)
[2025-02-02] MEDS: diazePAM 5 MG TABLET PO SCH (05:56)
[2025-02-02 08:55] VITALS: BP 140/80; PULSE 80; RESP 20; TEMP 98
[2025-02-03] MEDS ORDERED: diazePAM 5 MG TABLET PO SCH (06:00)
[2025-02-04] MEDS ORDERED: diazePAM 5 MG TABLET PO ONE (06:00)
== END 2025-02-02 10:18 | disposition left against medical advice (07) | DRG 894 ==
LOC: YASAS 15:41 → Y3N 18:00
PROVIDERS: ADMIT Neuromusculoskeletal Medicine & OMM; ATTEND Neuromusculoskeletal Medicine & OMM
PROC: HZ2ZZZZ Detoxification Services for Substance Abuse Treatment (ICD-10-PCS; principal; 2025-01-31)
DX: F10.230 Alcohol dependence with withdrawal, uncomplicated (principal); Z59.01 Sheltered homelessness; F12.20 Cannabis dependence, uncomplicated; F13.10 Sedative, hypnotic or anxiolytic abuse, uncomplicated; F17.210 Nicotine dependence, cigarettes, uncomplicated; F41.9 Anxiety disorder, unspecified; E78.5 Hyperlipidemia, unspecified; I10 Essential (primary) hypertension; K21.9 Gastro-esophageal reflux disease without esophagitis; E11.9 Type 2 diabetes mellitus without complications; Z79.84 Long term (current) use of oral hypoglycemic drugs; Z87.891 Personal history of nicotine dependence; Z88.8 Allergy status to other drugs, medicaments and biological substances
CPT/HCPCS: 36415; 80053; 80305; 80307; 82962; 85027; 86780